=== PATIENT | male | born 1970 | race Caucasian/White ===

== ENCOUNTER 2022-12-16 02:07 | Emergency (ER) | payer BC, SELFPAY ==
[2022-12-16 02:23] VITALS: BP 116/76; PULSE 78; RESP 20; TEMP 36.6; O2SAT 98; BMI 31.8
--- NOTE | 2022-12-16 02:31 | ED.GENADULT ---
HPI - General Adult General Chief complaint: Lower Extremity Swelling Stated complaint: swollen from knee to feet Time Seen by Provider: 12/16/22 02:30 History of Present Illness HPI narrative: Pt aox4, ABCs intact. Patient c/o lower leg swelling since Saturday. Patient has been staying in his car since Saturday since they were evicted from their house. Patient has not been eating and only drinking water and his meds. Patient also requesting social work consult. 52-year-old man presenting to the emergency department with primary physical complaint of lower leg swelling. He says it hurts all the way up to his knees. Also has pain after prolonged sitting though allowing less time sitting indicating the sacral area. Has been losing weight. The been living in their car over the last 3 or 4 days since being evicted from their home. Other residents of this vehicle include his his disabled [id number] and their rotund carrier. He does also have a history of diabetes and has continued to take his medication but you with limited food is intake over the last couple of days. Has been staying hydrated with water. Noting though less urine out. They have been parked over at the truck stop using a bathroom facilities there. 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 Later notes that they anticipate a disability check from jacky who lives with them by Saturday. Should allow them a long-term hotel arrangement. Related Data Allergies Allergy/AdvReac Type Severity Reaction Status Date / Time coconut Allergy Verified 12/16/22 02:23 morphine Allergy Verified 12/16/22 02:23 Sulfa (Sulfonamide Allergy Verified 12/16/22 02:23 Antibiotics) Review of Systems Status of ROS: Reports: 6 or more systems reviewed and unremarkable except as noted in History and below Exam Narrative: Exam Narrative: Is pleasant. Tall man. Talkative. Cranial nerves 2-12 intact. Breathing easily. Lungs appear to be clear. Heart in a regular rate and rhythm. Abdomen is overweight soft nontender. Examination of the sacral air in question shows an elliptical of line of erythema in the upper gluteal cleft with surrounding mild erythema. Tender to palpation. I do not appreciate any asymmetrical swelling. No drainage. The lower extremities with mild edema of from dorsum of feet up to knees. Symmetrical. Not discretely tender to calf palpation or with Homans. Const: Vital Signs, click to edit/add: Vital Signs - 24 hr 12/16/22 02:23 Temperature 97.8 F Pulse Rate [Pulse Oximeter] 78 Respiratory Rate 20 Blood Pressure [Ri ght Upper Arm] 116/76 Pulse Oximetry 98 Oxygen Delivery Me thod Room Air Documenting provider has reviewed patient's vital signs: yes Course Vital Signs Vital signs: Initial Vital Signs Temperature 97.8 F 12/16/22 02:23 Temperature Source Temporal Artery Scan 12/16/22 02:23 Pulse Rate 78 12/16/22 02:23 Pulse Rhythm Regular 12/16/22 02:23 Pulse Strength 3+ Normal 12/16/22 02:23 Respiratory Rate 20 12/16/22 02:23 Blood Pressure 116/76 12/16/22 02:23 Blood Pressure Mean 89 12/16/22 02:23 Pulse Oximetry 98 12/16/22 02:23 Oxygen Delivery Method Room Air 12/16/22 02:23 Vital Signs Temperature 97.8 F 12/16/22 02:23 Pulse Rate 78 12/16/22 02:23 Respiratory Rate 20 12/16/22 02:23 Blood Pressure 116/76 12/16/22 02:23 Pulse Oximetry 98 12/16/22 02:23 Oxygen Delivery Method Room Air 12/16/22 02:23 Temperature 97.8 F 12/16/22 02:23 Pulse Rate 78 12/16/22 02:23 Respiratory Rate 20 12/16/22 02:23 Blood Pressure 116/76 12/16/22 02:23 Pulse Oximetry 98 12/16/22 02:23 Oxygen Delivery Method Room Air 12/16/22 02:23 Medical Decision Making MDM Narrative Medical decision making narrative: Initiating IV hydration. Checking labs in the setting of diabetes. I doubt that these legs represent DVT but purely a consequence of prolonged sitting. Erosion or sacral ulcer stage I looks to be beginning at the top of the gluteal cleft Ordered for Mepilex dressing and sacral donut. Temporary treatment for pain with acetaminophen 1 tablet of Percocet. Reports that last creatinine was 1.5 --today is 1.7. Is given food during time in the emergency department. He is able to sleep. I wrapped lower legs with Tony wraps finished with [place]an. We do have social Work available during the week but not during the we can. I can send in a referral see if any for other resources can be found. We have been searching as well. Food bank is not open over the weekend. Did give food on departure. Lab Data Lab results reviewed: Yes I reviewed the patient's lab results Labs: Lab Results 12/16/22 12/16/22 Range/Units 03:15 03:40 WBC 7.58 (4.50-11.00) K/uL RBC 4.44 (4.30-5.90) m/uL Hgb 13.3 L (13.5-17.5) gm/dL Hct 40.7 (37.0-53.0) % MCV 92 (80-100) fL MCH 30 (26-34) pg MCHC 33 (32-36) gm/dL RDW Coeff of Jerry 14.1 (11.5-15.5) % Plt Count 203 (140-440) K/uL Neut % (Auto) 54.4 (42.0-72.0) % Lymph % (Auto) 28.2 (20-44) % Towns % (Auto) 9.9 (0.0-11.0) % Eos % (Auto) 7.0 (0.0-7.0) % Baso % (Auto) 0.4 (0.0-3.0) % Neut # (Auto) 4.12 (1.7-7.0) K/uL Lymph # (Auto) 2.14 (0.90-2.90) K/uL Towns # (Auto) 0.80 (0.00-0.90) K/UL Eos # (Auto) 0.53 H (0.00-0.50) K/uL Baso # (Auto) 0.03 (0.00-0.30) K/uL Abs Immat Gran (auto) 0.01 (0.00-0.30) K/uL Imm/Tot Granulo (auto) 0.1 % D-Dimer Quant (PE/DVT) < 0.27 (0.00-0.50) ug/ml Sodium 138 (135-149) mmol/L Potassium 4.4 (3.6-5.1) mmol/L Chloride 109 (96-114) mmol/L Carbon Dioxide 13 L (20-32) mmol/L Anion Gap 16 H (7-15) mEq/L BUN 45 H (7-30) mg/dL Creatinine 1.7 H (0.5-1.5) mg/dL Estimated Creat Clear 65.51 Estimated GFR 49 ml/min Glucose 151 H (60-115) mg/dL Lactate 2.8 H (0.5-1.9) mmol/L Calcium 8.6 (8.4-10.6) mg/dL Total Bilirubin 0.7 (0.1-1.5) mg/dL Direct Bilirubin 0.3 (0.0-0.5) mg/dL AST 42 H (12-35) U/L ALT 38 (4-50) U/L Alkaline Phosphatase 110 (40-150) U/L C-Reactive Protein 0.5 (0.5-1.0) mg/dL NT-Pro-B Natriuret Pep < 20 pg/mL Total Protein 6.8 (6.0-8.3) g/dL Albumin 4.2 (3.3-5.0) g/dL TSH 1.830 (0.270-4.20) uIU/mL Discharge Plan Discharge Clinical Impression: Other social stressor, Peripheral edema, Pressure sore Patient Disposition: Home w/ Parent or Adult Condition: Stable Additional Instructions: I have placed referral for social work though I am not certain they will be able to assist you. I hope you can improve your situation on Saturday as you're anticipating. You can use these Tony wraps as needed just to keep fluid out of your legs. I do not think you have a blood clot otherwise. Hopefully also this seat/donut can take some of the pressure off of your sacral area. Follow Up/Referrals: Provider,Not a Local [Primary Care Provider] - Stand Alone Forms: [facility] Info Instructions
[2022-12-16 03:32] LABS: Albumin* 4.2 g/dL (3.3-5.0); Chloride* 109 mmol/L (96-114); Potassium* 4.4 mmol/L (3.6-5.1); Sodium* 138 mmol/L (135-149)
[2022-12-16 03:34] LABS: Creatinine* 1.7 mg/dL (0.5-1.5); Est. Creatinine Clearance* 65.51; Estimated Glomerular Filt Rate 49 ml/min
[2022-12-16 03:35] LABS: Alanine Aminotransferase* 38 U/L (4-50); Alkaline Phosphatase* 110 U/L (40-150); Anion Gap 16 mEq/L (7-15); Aspartate Amino Transferase* 42 U/L (12-35); Bilirubin Direct* 0.3 mg/dL (0.0-0.5); Bilirubin Total* 0.7 mg/dL (0.1-1.5); Blood Urea Nitrogen* 45 mg/dL (7-30); Carbon Dioxide* 13 mmol/L (20-32); Glucose* 151 mg/dL (60-115); Total Protein* 6.8 g/dL (6.0-8.3)
[2022-12-16 03:36] LABS: Calcium* 8.6 mg/dL (8.4-10.6)
[2022-12-16 03:38] LABS: C Reactive Protein* 0.5 mg/dL (0.5-1.0)
[2022-12-16 03:46] LABS: D Dimer Quantitative* < 0.27 ug/ml (0.00-0.50); NT Pro B Type NatriureticPept* < 20 pg/mL
[2022-12-16 03:49] LABS: Lactate* 2.8 mmol/L (0.5-1.9)
[2022-12-16] MEDS: 0.9 % SODIUM CHLORIDE 1000 ml 1,000 ML IV ×2 (03:49→05:38)
[2022-12-16 03:52] LABS: Basophils Absolute Auto 0.03 K/uL (0.00-0.30); Basophils Percent Auto 0.4 % (0.0-3.0); Eosinophils Absolute Auto 0.53 K/uL (0.00-0.50); Hematocrit 40.7 % (37.0-53.0); Hemoglobin* 13.3 gm/dL (13.5-17.5); Immature Granulocytes Abs Auto 0.01 K/uL (0.00-0.30); Immature Granulocytes Pct Auto 0.1 %; Lymphocytes Absolute Auto 2.14 K/uL (0.90-2.90); Lymphocytes Percent Auto 28.2 % (20-44); Mean Corpuscular HGB Conc 33 gm/dL (32-36); Mean Corpuscular Hemoglobin 30 pg (26-34); Mean Corpuscular Volume 92 fL (80-100); Monocytes Percent Auto 9.9 % (0.0-11.0); Neutrophils Absolute Auto 4.12 K/uL (1.7-7.0); Neutrophils Percent Auto 54.4 % (42.0-72.0); Platelet Count* 203 K/uL (140-440); RDW Coefficient of Variation % 14.1 % (11.5-15.5); Red Blood Count 4.44 m/uL (4.30-5.90); White Blood Count* 7.58 K/uL (4.50-11.00)
[2022-12-16 03:55] LABS: Slide Review Reflex No
[2022-12-16] MEDS: ACETAMINOPHEN 325 MG TABLET 650 MG PO (04:40)
[2022-12-16] MEDS: OxyCODONE/APAP 5-325 TABLET 1 TAB PO (04:41)
== END 2022-12-16 08:44 | disposition home or self-care (01) ==
PROVIDERS: Emergency Provider Family Medicine
DX: R60.9 Edema, unspecified (principal); L89.151 Pressure ulcer of sacral region, stage 1; Z73.3 Stress, not elsewhere classified; Z60.9 Problem related to social environment, unspecified
CPT/HCPCS: 36415; 80048; 80076; 81001; 83605; 83880; 84443; 85025; 85379; 86140; 99284; A9270; J7030

== ENCOUNTER 2022-12-27 18:43 | Emergency (ER) | payer BC, SELFPAY ==
[2022-12-27 19:09] VITALS: BP 124/85; PULSE 78; RESP 16; TEMP 36.7; O2SAT 98; BMI 31.8
--- NOTE | 2022-12-27 21:00 | ED.NURSE ---
compression socks to patient, pt dc out self ambulatory
--- NOTE | 2022-12-28 00:37 | ED.GENADULT ---
HPI - General Adult General Date Seen: 12/28/22 Chief complaint: Extremity Pain/Injury, Lower Stated complaint: Pain/swelling in legs Time Seen by Provider: 12/27/22 20:29 Source: patient Mode of arrival: ambulatory Limitations: no limitations History of Present Illness HPI narrative: Patient is a 52-year-old male who was seen here a few days ago for swelling and pain in his legs. He had an exhaustive workup including a D-dimer, metabolic panel, TSH, LFTs, BNP, all of which were normal. He was discharged with wraps for his legs and instructions to elevate, which has lb it been difficult for him to do as he is currently been living in his car after eviction from his apartment. He comes in today saying that he is still having problems with swelling in his legs. He is wondering about a diuretic. Of note, he is on 4 different blood pressure medicines. He says he is managed by somebody at [facility] for hypertension, and apparently is supposed to get a tilt-table test because he has had some autonomic dysfunction and they are trying to get him off of some of his blood pressure medicines. He apparently has not tolerated hydrochlorothiazide in the past by his report. Notably he is on amlodipine. He does not have any worsening of his swelling. There is no redness or warmth. Symptoms are the same. He does report that there is an apartment in works. He denies any food insecurity. Related Data Home Medications Medication Instructions Recorded Confirmed Nasonex 12/27/22 allopurinol 100 mg tablet 100 mg PO BID 12/27/22 12/27/22 amlodipine 10 mg tablet 10 mg PO DAILY 12/27/22 12/27/22 atorvastatin 20 mg tablet 20 mg PO DAILY 12/27/22 12/27/22 bupropion HCl 150 mg 24 hr tablet, 150 mg PO QAM 12/27/22 12/27/22 extended release clonidine HCl 0.1 mg tablet 0.1 mg PO BID 12/27/22 12/27/22 empagliflozin 10 mg tablet 10 mg PO DAILY 12/27/22 12/27/22 (Jardiance) empagliflozin 25 mg tablet 25 mg PO QAM 12/27/22 12/27/22 (Jardiance) gabapentin 300 mg capsule mg PO 12/27/22 insulin glargine 100 unit/mL 18 unit subcut QPM 12/27/22 12/27/22 subcutaneous solution (Lantus U-100 Insulin) labetalol 200 mg tablet 200 mg PO BID 12/27/22 12/27/22 lisinopril 40 mg tablet 40 mg PO DAILY 12/27/22 12/27/22 meloxicam 15 mg tablet 15 mg PO DAILY 12/27/22 12/27/22 metformin 500 mg tablet,extended 1,000 mg PO BID 12/27/22 12/27/22 release 24 hr pantoprazole 40 mg tablet,delayed 40 mg PO 12/27/22 release Allergies Allergy/AdvReac Type Severity Reaction Status Date / Time coconut Allergy Verified 12/27/22 19:12 morphine Allergy Verified 12/27/22 19:12 Sulfa (Sulfonamide Allergy Verified 12/27/22 19:12 Antibiotics) PFSH [facility] Social History Smoking Status: Former smoker How often do you have a drink containing alcohol: never AUDIT-C Alcohol total score: 0 Non-prescribed substance use: denies use Exam Narrative: Exam Narrative: Vital signs as noted above. In general, an alert, well-appearing patient. Very talkative. Head: Normocephalic, atraumatic. Eyes: Pupils are equal reactive. Extraocular movements are full. Conjunctivae are normal. ENT: Mucous membranes are moist. Throat is normal. Neck: Supple without lymphadenopathy. Heart: Regular rate and rhythm. No murmur or rub. Lungs: Clear bilaterally. No increased work of breathing, crackles or wheezes. Abdomen: Soft and nontender. No organomegaly. Extremities: Well perfused. Trace edema. No calf tenderness. Pulses intact. No erythema or warmth. Neurologic: Patient is alert and oriented to person and place. Speech is fluent. Face is symmetric. Moves all extremities equally. Affect: Normal. Skin: Warm and dry. Well perfused. Const: Vital Signs, click to edit/add: Vital Signs - 24 hr 12/27/22 19:09 Temperature 98.1 F Pulse Rate [Left P ulse Oximeter] 78 Respiratory Rate 16 Blood Pressure [Ri ght Upper Arm] 124/85 Pulse Oximetry 98 Oxygen Delivery Me thod Room Air Documenting provider has reviewed patient's vital signs: yes Course Course ED Course: Discussed that I do not think adding a diuretic is a good solution, it might provide short-term relief but is not going to be longstanding any is already on 4 antihypertensives as it is. Did discuss that sometimes amlodipine can be associated with peripheral edema and it might be worthwhile discussing this with his [place] doctor. I do not feel comfortable adjusting his medications given that it sounds like he has been difficult to control. I do not think he needs additional workup, everything was covered the last time he was here. I reviewed with him that when possible I think elevation is helpful, and I do think compression is probably his best bet. I gave him compression socks today. Encouraged him to follow up with his doctor at [place]. Vital Signs Vital signs: Initial Vital Signs Temperature 98.1 F 12/27/22 19:09 Temperature Source Oral 12/27/22 19:09 Pulse Rate 78 12/27/22 19:09 Respiratory Rate 16 12/27/22 19:09 Blood Pressure 124/85 12/27/22 19:09 Blood Pressure Mean 98 12/27/22 19:09 Blood Pressure Position Sitting 12/27/22 19:09 Pulse Oximetry 98 12/27/22 19:09 Oxygen Delivery Method Room Air 12/27/22 19:09 Vital Signs Temperature 98.1 F 12/27/22 19:09 Pulse Rate 78 12/27/22 19:09 Respiratory Rate 16 12/27/22 19:09 Blood Pressure 124/85 12/27/22 19:09 Pulse Oximetry 98 12/27/22 19:09 Oxygen Delivery Method Room Air 12/27/22 19:09 Temperature 98.1 F 12/27/22 19:09 Pulse Rate 78 12/27/22 19:09 Respiratory Rate 16 12/27/22 19:09 Blood Pressure 124/85 12/27/22 19:09 Pulse Oximetry 98 12/27/22 19:09 Oxygen Delivery Method Room Air 12/27/22 19:09 Discharge Plan Discharge Clinical Impression: Peripheral edema Patient Disposition: Home, Self-Care Condition: Stable Instructions: Leg Edema (ED) Additional Instructions: Compression socks as discussed. Elevate as able. Talk with your [place] doctor about the amlodipine as this may be contributing to your leg swelling. Watch dietary salt. Prescriptions: No Action clonidine HCl 0.1 mg tablet 0.1 mg PO BID atorvastatin 20 mg tablet 20 mg PO DAILY labetalol 200 mg tablet 200 mg PO BID insulin glargine [Lantus U-100 Insulin] 100 unit/mL solution 18 unit subcut QPM meloxicam 15 mg tablet 15 mg PO DAILY allopurinol 100 mg tablet 100 mg PO BID amlodipine 10 mg tablet 10 mg PO DAILY pantoprazole 40 mg tablet,delayed release (DR/EC) 40 mg PO gabapentin 300 mg capsule PO lisinopril 40 mg tablet 40 mg PO DAILY metformin 500 mg tablet extended release 24 hr 1,000 mg PO BID bupropion HCl 150 mg tablet extended release 24 hr 150 mg PO QAM Jardiance 25 mg tablet 25 mg PO QAM Jardiance 10 mg tablet 10 mg PO DAILY Nasonex Follow Up/Referrals: Provider,Not a Local [Primary Care Provider] - Stand Alone Forms: [facility] Info Instructions
== END 2022-12-27 21:04 | disposition home or self-care (01) ==
LOC: ED 21:01
PROVIDERS: Emergency Provider Emergency Medicine
DX: R60.0 Localized edema (principal)
CPT/HCPCS: 99283

== ENCOUNTER 2023-01-03 01:07 | Emergency (ER) | payer BC, SELFPAY ==
[2023-01-03 01:14] VITALS: BP 155/108; PULSE 82; RESP 16; TEMP 36.7; O2SAT 98; BMI 32.0
--- NOTE | 2023-01-03 01:19 | ED.GENADULT ---
HPI - General Adult General Chief complaint: Lower Extremity Swelling Stated complaint: swelling in legs, pain Time Seen by Provider: 01/03/23 01:14 History of Present Illness HPI narrative: CC: Bilateral Lower Extremity Edema pt. with increased swelling in legs. was seen here 12/28 and was told to wear compression stockings and elevate legs. has been doing that with no relief. denies shortness of breath, trouble breathing, fevers, n/v, diarrhea. 52-year-old man returning to the emergency department with complaint of increased lower extremity edema. Has unfortunately had to reside with his and [id number] a in a car for some time. 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 Last seen had a creatinine of 1.7. Was wanting some diuretic but due to this was discouraged from that. Incidentally does take amlodipine. Underlying history of diabetes as well. He is complaining of burning pain through majority of his legs which he would associate with the swelling. He has been finding ways to elevate them while in the car. He was given compression stockings which he wore until 1 pair wore out. Sound like he lost another and the Tony wraps that I applied at last visit have been misplaced. Later in visit it becomes clear that he has of an appointment with primary care provider later today. Has been focusing on hydrating. Tries to take walks whenever is able. The swelling he thinks is extending into his hands as well. He reports as a 3:00 p.m. later today they will have a house or room to stay in. Related Data Home Medications Medication Instructions Recorded Confirmed allopurinol 100 mg tablet 100 mg PO BID 12/27/22 01/03/23 amlodipine 10 mg tablet 10 mg PO DAILY 12/27/22 01/03/23 atorvastatin 20 mg tablet 20 mg PO DAILY 12/27/22 01/03/23 bupropion HCl 150 mg 24 hr tablet, 150 mg PO QAM 12/27/22 01/03/23 extended release clonidine HCl 0.1 mg tablet 0.1 mg PO BID 12/27/22 01/03/23 empagliflozin 25 mg tablet 25 mg PO QAM 12/27/22 01/03/23 (Jardiance) gabapentin 300 mg capsule 300 mg PO TID 12/27/22 01/03/23 insulin glargine 100 unit/mL 18 unit subcut QPM 12/27/22 01/03/23 subcutaneous solution (Lantus U-100 Insulin) labetalol 200 mg tablet 200 mg PO BID 12/27/22 01/03/23 lisinopril 40 mg tablet 40 mg PO DAILY 12/27/22 01/03/23 meloxicam 15 mg tablet 15 mg PO DAILY 12/27/22 01/03/23 metformin 500 mg tablet,extended 1,000 mg PO BID 12/27/22 01/03/23 release 24 hr pantoprazole 40 mg tablet,delayed 40 mg PO Q12H 12/27/22 01/03/23 release Previous Rx's Medication Instructions Recorded furosemide 40 mg tablet (Lasix) 40 mg PO BID #14 tabs 01/03/23 Allergies Allergy/AdvReac Type Severity Reaction Status Date / Time coconut Allergy Mild Hives Verified 01/03/23 01:22 morphine Allergy Mild Hives Verified 01/03/23 01:22 Sulfa (Sulfonamide Allergy Mild Hives Verified 01/03/23 01:22 Antibiotics) Review of Systems Status of ROS: Reports: 6 or more systems reviewed and unremarkable except as noted in History and below [facility] Social History Smoking Status: Former smoker How often do you have a drink containing alcohol: never AUDIT-C Alcohol total score: 0 Non-prescribed substance use: denies use Exam Narrative: Exam Narrative: Pleasant. Talkative a little restless. Breathing easily. Moving all extremities without difficulty. There is 2+ soft pitting edema over the dorsum of both feet. A continues to extend up to his knees but increasingly less. Sore to palpation particularly over his feet. I do not see erythematous changes consistent with a cellulitis anywhere. Const: Vital Signs, click to edit/add: Vital Signs - 24 hr 01/03/23 01:14 Temperature 98.0 F Pulse Rate [Right Pulse Oximeter] 82 Respiratory Rate 16 Blood Pressure [Ri ght Upper Arm] 155/108 H Pulse Oximetry 98 Oxygen Delivery Me thod Room Air Course Vital Signs Vital signs: Initial Vital Signs Temperature 98.0 F 01/03/23 01:14 Temperature Source Temporal Artery Scan 01/03/23 01:14 Pulse Rate 82 01/03/23 01:14 Respiratory Rate 16 01/03/23 01:14 Blood Pressure 155/108 H 01/03/23 01:14 Blood Pressure Mean 123 H 01/03/23 01:14 Blood Pressure Position Sitting 01/03/23 01:14 Pulse Oximetry 98 01/03/23 01:14 Oxygen Delivery Method Room Air 01/03/23 01:14 Vital Signs Temperature 98.0 F 01/03/23 01:14 Pulse Rate 82 01/03/23 01:14 Respiratory Rate 16 01/03/23 01:14 Blood Pressure 155/108 H 01/03/23 01:14 Pulse Oximetry 98 01/03/23 01:14 Oxygen Delivery Method Room Air 01/03/23 01:14 Temperature 98.0 F 01/03/23 01:14 Pulse Rate 82 01/03/23 01:14 Respiratory Rate 16 01/03/23 01:14 Blood Pressure 155/108 H 01/03/23 01:14 Pulse Oximetry 98 01/03/23 01:14 Oxygen Delivery Method Room Air 01/03/23 01:14 Medical Decision Making MDM Narrative Medical decision making narrative: I think would be reasonable to recheck chemistries. If we can verify creatinine might be able to offer different treatments. I think it is quite challenging to be able to get his legs up to truly. 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 He is really desperate to get the fluid out of his legs Creatinine will allow some leeway for diuretic. I would not do this though without compression. I apply Tony wraps to his lower extremities. Is given Lasix for outpatient treatment. Close follow-up in primary care. Sounds like will actually have a real home to live in here shortly in the should help resolve his edema as well. Barring improvement, might need to be seen at lymphedema clinic See patient discharge plan Lab Data Lab results reviewed: Yes I reviewed the patient's lab results Labs: Lab Results 01/03/23 Range/Units 01:40 Sodium 140 (135-149) mmol/L Potassium 3.9 (3.6-5.1) mmol/L Chloride 108 (96-114) mmol/L Carbon Dioxide 20 (20-32) mmol/L Anion Gap 12 (7-15) mEq/L BUN 13 (7-30) mg/dL Creatinine 1.3 (0.5-1.5) mg/dL Estimated Creat Clear 85.67 Estimated GFR 67 ml/min Glucose 166 H (60-115) mg/dL Calcium 9.0 (8.4-10.6) mg/dL Discharge Plan Discharge Clinical Impression: Leg pain, Peripheral edema Patient Disposition: Home, Self-Care Condition: Stable Additional Instructions: As much as you can get your legs up at the level of your heart and wear some form of lower extremity compression. Can take the Lasix in combination with compression and leg elevation for 4 days as prescribed and then reassess. Please follow-up with your primary care provider this afternoon as discussed. Really hope this housing works out for you later today. I think this in combination with a few days of a diuretic, being in a more stable and comfortable place where you can get your legs up; I think this will be helpful. [place] from [facility] if really needed Prescriptions: New furosemide [Lasix] 40 mg tablet 40 mg PO BID Qty: 14 0RF No Action clonidine HCl 0.1 mg tablet 0.1 mg PO BID atorvastatin 20 mg tablet 20 mg PO DAILY labetalol 200 mg tablet 200 mg PO BID insulin glargine [Lantus U-100 Insulin] 100 unit/mL solution 18 unit subcut QPM meloxicam 15 mg tablet 15 mg PO DAILY allopurinol 100 mg tablet 100 mg PO BID amlodipine 10 mg tablet 10 mg PO DAILY pantoprazole 40 mg tablet,delayed release (DR/EC) 40 mg PO Q12H gabapentin 300 mg capsule 300 mg PO TID Rx Instructions: TAKE 1 CAPSULE BY MOUTH IN THE MORNING, 2 CAPSULES IN THE AFTERNOON, AND 3 CAPSULES AT BEDTIME lisinopril 40 mg tablet 40 mg PO DAILY metformin 500 mg tablet extended release 24 hr 1,000 mg PO BID bupropion HCl 150 mg tablet extended release 24 hr 150 mg PO QAM Jardiance 25 mg tablet 25 mg PO QAM Follow Up/Referrals: Provider,Not a Local [Primary Care Provider] - Stand Alone Forms: [employer] Info Instructions
[2023-01-03 01:30] VITALS: O2SAT 98
[2023-01-03 01:58] LABS: Chloride* 108 mmol/L (96-114)
[2023-01-03 01:59] LABS: Potassium* 3.9 mmol/L (3.6-5.1); Sodium* 140 mmol/L (135-149)
[2023-01-03 02:01] LABS: Creatinine* 1.3 mg/dL (0.5-1.5); Est. Creatinine Clearance* 85.67; Estimated Glomerular Filt Rate 67 ml/min
[2023-01-03 02:02] LABS: Anion Gap 12 mEq/L (7-15); Blood Urea Nitrogen* 13 mg/dL (7-30); Carbon Dioxide* 20 mmol/L (20-32); Glucose* 166 mg/dL (60-115)
[2023-01-03 03:35] VITALS: BP 132/68; PULSE 79; RESP 16; TEMP 36.7; O2SAT 98
[2023-01-03] MEDS: FUROSEMIDE 40 MG TABLET PO (03:38)
[2023-01-03 03:40] VITALS: BP 132/68; PULSE 79; RESP 16; TEMP 36.7
== END 2023-01-03 03:40 | disposition home or self-care (01) ==
PROVIDERS: Emergency Provider Family Medicine
DX: M79.605 Pain in left leg (principal); M79.604 Pain in right leg; R60.9 Edema, unspecified
CPT/HCPCS: 36415; 80048; 94761; 99283; 99284; A9270

== ENCOUNTER 2023-01-12 16:33 | Emergency (ER) | payer BC, SELFPAY ==
[2023-01-12 17:01] VITALS: BP 166/97; PULSE 98; RESP 18; TEMP 37; O2SAT 98
--- NOTE | 2023-01-12 17:12 | ED_ITS ---
HPI - General Adult General Time Seen by Provider: 17:12 Date Seen: 01/12/23 Chief complaint: Sore Throat Stated complaint: Covid+, congested Time Seen by Provider: 01/12/23 17:11 Source: patient and RN notes reviewed Mode of arrival: ambulatory Limitations: no limitations History of Present Illness HPI narrative: Patient is a 52-year-old male with underlying diabetes coming in with COVID exposure. His has tested positive for COVID today. He has had some slight nasal congestion and some sinus symptoms for about a week but this is not anything necessarily new for him. He does not feel like he has any new symptoms with sore throat, cough. He has not had any fevers or body aches. No GI symptoms. He has had COVID before and taken Paxlovid before. He does report he has restricted insurance in can only go to 1 pharmacy. He would like to be tested for COVID today. Related Data Home Medications Medication Instructions Recorded Confirmed allopurinol 100 mg tablet 100 mg PO BID 12/27/22 01/03/23 amlodipine 10 mg tablet 10 mg PO DAILY 12/27/22 01/03/23 atorvastatin 20 mg tablet 20 mg PO DAILY 12/27/22 01/03/23 bupropion HCl 150 mg 24 hr tablet, 150 mg PO QAM 12/27/22 01/03/23 extended release clonidine HCl 0.1 mg tablet 0.1 mg PO BID 12/27/22 01/03/23 empagliflozin 25 mg tablet 25 mg PO QAM 12/27/22 01/03/23 (Jardiance) gabapentin 300 mg capsule 300 mg PO TID 12/27/22 01/03/23 insulin glargine 100 unit/mL 18 unit subcut QPM 12/27/22 01/03/23 subcutaneous solution (Lantus U-100 Insulin) labetalol 200 mg tablet 200 mg PO BID 12/27/22 01/03/23 lisinopril 40 mg tablet 40 mg PO DAILY 12/27/22 01/03/23 meloxicam 15 mg tablet 15 mg PO DAILY 12/27/22 01/03/23 metformin 500 mg tablet,extended 1,000 mg PO BID 12/27/22 01/03/23 release 24 hr pantoprazole 40 mg tablet,delayed 40 mg PO Q12H 12/27/22 01/03/23 release Previous Rx's Medication Instructions Recorded furosemide 40 mg tablet (Lasix) 40 mg PO BID #14 tabs 01/03/23 Allergies Allergy/AdvReac Type Severity Reaction Status Date / Time coconut Allergy Mild Hives Verified 01/03/23 01:22 morphine Allergy Mild Hives Verified 01/03/23 01:22 Sulfa (Sulfonamide Allergy Mild Hives Verified 01/03/23 01:22 Antibiotics) Review of Systems Status of ROS: Reports: 6 or more systems reviewed and unremarkable except as noted in History and below PFSH [facility] Social History Smoking Status: Former smoker Second hand tobacco smoke exposure: No How often do you have a drink containing alcohol: never How often do you have six or more drinks on one occasion: Never AUDIT-C Alcohol total score: 0 Non-prescribed substance use: denies use Exam Const: Vital Signs, click to edit/add: Vital Signs - 24 hr 01/12/23 17:01 Temperature 98.6 F Pulse Rate [Right Pulse Oximeter] 98 Respiratory Rate 18 Blood Pressure [Ri ght Upper Arm] 166/97 H Pulse Oximetry 98 Oxygen Delivery Me thod Room Air Patient is alert, interactive, no apparent distress. Sclera clear, face atraumatic, oropharynx normal. Able speak in complete sentences. Neck is supple, no cervical adenopathy. Lungs are clear with good air entry, no wheezing or crackles, no tachypnea. CV regular rate and rhythm, no significant murmur, normal S1 and S2. Documenting provider has reviewed patient's vital signs: yes Course Course ED Course: Review of his chart shows estimated creatinine clearance of 86 with creatinine of 1.3 on January 03 here in our system. COVID test has been collected. Reviewed with patient if he is COVID positive it is difficult to say when he may have come down with symptoms. We reviewed that he indeed might not be having COVID at this point. We will wait and see what the test results shows. Vital Signs Vital signs: Initial Vital Signs Temperature 98.6 F 01/12/23 17:01 Temperature Source Temporal Artery Scan 01/12/23 17:01 Pulse Rate 98 01/12/23 17:01 Respiratory Rate 18 01/12/23 17:01 Blood Pressure 166/97 H 01/12/23 17:01 Blood Pressure Mean 120 H 01/12/23 17:01 Blood Pressure Position Sitting 01/12/23 17:01 Pulse Oximetry 98 01/12/23 17:01 Oxygen Delivery Method Room Air 01/12/23 17:01 Vital Signs Temperature 98.6 F 01/12/23 17:01 Pulse Rate 98 01/12/23 17:01 Respiratory Rate 18 01/12/23 17:01 Blood Pressure 166/97 H 01/12/23 17:01 Pulse Oximetry 98 01/12/23 17:01 Oxygen Delivery Method Room Air 01/12/23 17:01 Temperature 98.6 F 01/12/23 17:01 Pulse Rate 98 01/12/23 17:01 Respiratory Rate 18 01/12/23 17:01 Blood Pressure 166/97 H 01/12/23 17:01 Pulse Oximetry 98 01/12/23 17:01 Oxygen Delivery Method Room Air 01/12/23 17:01 Medical Decision Making Lab Data Lab results reviewed: Yes I reviewed the patient's lab results Labs: Lab Results 01/12/23 Range/Units 17:10 SARS-CoV-2 (PCR) Negative SARS-CoV-2 (Negative) Influenza Type A (PCR) Negative PCR FLU A (Negative) Influenza Type B (PCR) Negative PCR FLU B (Negative) RSV (PCR) Negative PCR RSV (Negative) Discharge Plan Discharge Clinical Impression: Close exposure to COVID-19 virus Patient Disposition: Home, Self-Care Condition: Stable Instructions: COVID-19: Slow the Coronavirus Spread (ED) Additional Instructions: Your test is negative for COVID at this time. Recommend wearing face mask and precautions while around your , isolate from each other if you can. If you start to turn symptomatic, do recommend following up in clinic or urgent care for testing. Activity Level: Activity as Tolerated Prescriptions: No Action clonidine HCl 0.1 mg tablet 0.1 mg PO BID atorvastatin 20 mg tablet 20 mg PO DAILY labetalol 200 mg tablet 200 mg PO BID insulin glargine [Lantus U-100 Insulin] 100 unit/mL solution 18 unit subcut QPM meloxicam 15 mg tablet 15 mg PO DAILY allopurinol 100 mg tablet 100 mg PO BID amlodipine 10 mg tablet 10 mg PO DAILY pantoprazole 40 mg tablet,delayed release (DR/EC) 40 mg PO Q12H gabapentin 300 mg capsule 300 mg PO TID Rx Instructions: TAKE 1 CAPSULE BY MOUTH IN THE MORNING, 2 CAPSULES IN THE AFTERNOON, AND 3 CAPSULES AT BEDTIME lisinopril 40 mg tablet 40 mg PO DAILY metformin 500 mg tablet extended release 24 hr 1,000 mg PO BID bupropion HCl 150 mg tablet extended release 24 hr 150 mg PO QAM Jardiance 25 mg tablet 25 mg PO QAM furosemide [Lasix] 40 mg tablet 40 mg PO BID Qty: 14 0RF Follow Up/Referrals: Provider,Not a Local [Primary Care Provider] - Stand Alone Forms: [facility]
[2023-01-12 17:56] LABS: PCR FLU A Negative PCR FLU A (Negative); PCR FLU B Negative PCR FLU B (Negative); PCR RSV Negative PCR RSV (Negative)
[2023-01-12 17:59] LABS: SARS PCR* Negative SARS-CoV-2 (Negative)
[2023-01-12 18:18] VITALS: BP 166/97; PULSE 98; RESP 18; TEMP 37
== END 2023-01-12 18:19 | disposition home or self-care (01) ==
PROVIDERS: Emergency Provider Family Medicine
DX: U07.1 COVID-19 (principal)
CPT/HCPCS: 87631; 99282; 99283

== ENCOUNTER 2023-01-14 19:26 | Emergency (ER) | payer BC, SELFPAY ==
[2023-01-14 19:57] VITALS: BP 142/104; PULSE 97; RESP 18; TEMP 36.7; O2SAT 99; BMI 33.4
[2023-01-14 20:23] LABS: Chloride* 105 mmol/L (96-114); Sodium* 139 mmol/L (135-149)
[2023-01-14 20:24] LABS: Potassium* 4.2 mmol/L (3.6-5.1)
[2023-01-14 20:26] LABS: Anion Gap 15 mEq/L (7-15); Carbon Dioxide* 19 mmol/L (20-32); Creatinine* 1.2 mg/dL (0.5-1.5); Est. Creatinine Clearance* 92.81; Estimated Glomerular Filt Rate 74 ml/min
[2023-01-14 20:27] LABS: Blood Urea Nitrogen* 22 mg/dL (7-30); Calcium* 9.9 mg/dL (8.4-10.6); Glucose* 181 mg/dL (60-115)
[2023-01-14 21:04] VITALS: BP 136/89; PULSE 81; RESP 18; O2SAT 98
--- NOTE | 2023-01-14 21:45 | ED.GENADULT ---
HPI - General Adult General Date Seen: 01/14/23 Chief complaint: Cough Stated complaint: Covid+ needs dr medley and diabetic-wants meds Time Seen by Provider: 01/14/23 20:01 Source: patient Mode of arrival: ambulatory Limitations: no limitations History of Present Illness HPI narrative: Patient is a 52-year-old gentleman, who presents here with a positive COVID test, he became sick today, he has been exposed to COVID at home both his brother and have COVID. He had COVID in the past is fully immunized. He does have some diabetes, and some other risk factors had been on Paxlovid in the past and did well, is asking for this again. Does have history of mild renal insufficiency needs to have his GFR checked. Otherwise feels fine, no shortness of breath chest pain leg swelling, no nausea vomiting just a little bit of a tickle in his throat, and a little bit of nasal discharge. Related Data Home Medications Medication Instructions Recorded Confirmed allopurinol 100 mg tablet 100 mg PO BID 12/27/22 01/14/23 amlodipine 10 mg tablet 10 mg PO DAILY 12/27/22 01/14/23 atorvastatin 20 mg tablet 20 mg PO DAILY 12/27/22 01/14/23 bupropion HCl 150 mg 24 hr tablet, 150 mg PO QAM 12/27/22 01/14/23 extended release clonidine HCl 0.1 mg tablet 0.1 mg PO BID 12/27/22 01/14/23 empagliflozin 25 mg tablet 25 mg PO QAM 12/27/22 01/14/23 (Jardiance) gabapentin 300 mg capsule 300 mg PO TID 12/27/22 01/14/23 insulin glargine 100 unit/mL 18 unit subcut QPM 12/27/22 01/14/23 subcutaneous solution (Lantus U-100 Insulin) labetalol 200 mg tablet 200 mg PO BID 12/27/22 01/14/23 lisinopril 40 mg tablet 40 mg PO DAILY 12/27/22 01/14/23 meloxicam 15 mg tablet 15 mg PO DAILY 12/27/22 01/14/23 metformin 500 mg tablet,extended 1,000 mg PO BID 12/27/22 01/14/23 release 24 hr pantoprazole 40 mg tablet,delayed 40 mg PO Q12H 12/27/22 01/14/23 release Previous Rx's Medication Instructions Recorded furosemide 40 mg tablet (Lasix) 40 mg PO BID #14 tabs 01/03/23 nirmatrelvir 300 mg (150 mg See Rx Instructions PO .COMPLEX 01/14/23 x2)-ritonavir 100 mg tablet,dose #30 ea pack (Paxlovid) Allergies Allergy/AdvReac Type Severity Reaction Status Date / Time coconut Allergy Mild Hives Verified 01/03/23 01:22 morphine Allergy Mild Hives Verified 01/03/23 01:22 Sulfa (Sulfonamide Allergy Mild Hives Verified 01/03/23 01:22 Antibiotics) Review of Systems Status of ROS: Reports: 10 or more systems reviewed and unremarkable except as noted in History and below PFSH [facility] Social History Smoking Status: Former smoker Second hand tobacco smoke exposure: No How often do you have a drink containing alcohol: never How often do you have six or more drinks on one occasion: Never AUDIT-C Alcohol total score: 0 Non-prescribed substance use: denies use Exam Narrative: Exam Narrative: On examination he is in no apparent distress he is seen in room 4, his vital signs are all stable. Pupils equal round reactive to light his TMs normal oropharynx is normal his chest is clear bilaterally with no wheezing crackles noted heart sounds no clicks murmurs or gallops his abdomen is soft and obese there is no guarding no organomegaly noted he moves all extremities independently well no Jayda sign, no swelling of his lower extremities, no rashes. Const: Vital Signs, click to edit/add: Vital Signs - 24 hr 01/14/23 19:57 01/14/23 21:04 Temperature 98.0 F Pulse Rate [Left P ulse Oximeter] 97 81 Respiratory Rate 18 18 Blood Pressure [Ri ght Upper Arm] 142/104 H 136/89 Pulse Oximetry 99 98 Oxygen Delivery Me thod Room Air Room Air Documenting provider has reviewed patient's vital signs: yes Course Vital Signs Vital signs: Initial Vital Signs Temperature 98.0 F 01/14/23 19:57 Temperature Source Temporal Artery Scan 01/14/23 19:57 Pulse Rate 97 01/14/23 19:57 Respiratory Rate 18 01/14/23 19:57 Blood Pressure 142/104 H 01/14/23 19:57 Blood Pressure Mean 116 H 01/14/23 19:57 Blood Pressure Position Sitting 01/14/23 19:57 Pulse Oximetry 99 01/14/23 19:57 Oxygen Delivery Method Room Air 01/14/23 19:57 Vital Signs Temperature 98.0 F 01/14/23 19:57 Pulse Rate 97 01/14/23 19:57 Respiratory Rate 18 01/14/23 19:57 Blood Pressure 142/104 H 01/14/23 19:57 Pulse Oximetry 99 01/14/23 19:57 Oxygen Delivery Method Room Air 01/14/23 19:57 Temperature 98.0 F 01/14/23 19:57 Pulse Rate 81 01/14/23 21:04 Respiratory Rate 18 01/14/23 21:04 Blood Pressure 136/89 01/14/23 21:04 Pulse Oximetry 98 01/14/23 21:04 Oxygen Delivery Method Room Air 01/14/23 21:04 Medical Decision Making MDM Narrative Medical decision making narrative: I do think he requires medication for COVID, as he has had increased risk for complications. He has also been seen within the window. Where it would work. I discussed with him on putting his medications in the liver pool interaction return checker. That he will need to hold both his amlodipine and his atorvastatin. He can restart these 3 days after he has done his course of Paxlovid. We talked about the worsening signs and symptoms but he should re-presented here he was comfortable with this. His GFR is 70, and no dosage modification is needed. Lab Data Lab results reviewed: Yes I reviewed the patient's lab results Labs: Lab Results 01/14/23 Range/Units 20:02 Sodium 139 (135-149) mmol/L Potassium 4.2 (3.6-5.1) mmol/L Chloride 105 (96-114) mmol/L Carbon Dioxide 19 L (20-32) mmol/L Anion Gap 15 (7-15) mEq/L BUN 22 (7-30) mg/dL Creatinine 1.2 (0.5-1.5) mg/dL Estimated Creat Clear 92.81 Estimated GFR 74 ml/min Glucose 181 H (60-115) mg/dL Calcium 9.9 (8.4-10.6) mg/dL Discharge Plan Discharge Clinical Impression: COVID-19 Patient Disposition: Home, Self-Care Condition: Stable Instructions: COVID-19 (Coronavirus Disease 2019) (ED), COVID-19 and Chronic Health Conditions (ED), COVID-19: Slow the Coronavirus Spread (ED), How to Recover from COVID-19 at Home (ED), Social Distancing Guidelines for COVID-19 (ED) Additional Instructions: We will send you home, I will give you prescription for the antiviral, that she should take. You should stay off of your atorvastatin, and your amlodipine and monitor your blood pressure. When she finished the medication and 3 days have gone by you may restart both of these medications. Increasing chest pain shortness of breath nausea vomiting or other concern he should come back and get re-evaluated. Please follow the guidelines for not spreading COVID. Activity Level: Light activity Discharge Diet: Regular Prescriptions: New Paxlovid 300 mg (150 mg x 2)-100 mg tablets,dose pack See Rx Instructions .ROUTE .COMPLEX Qty: 30 0RF Rx Instructions: take TWO 150 mg tablets of nirmatrelvir with ONE 100 mg tablet of ritonavir twice daily for 5 days, patient should stop his atorvastatin and amlodipine, he may restart these both 3 days after he finishes the prescription. No Action clonidine HCl 0.1 mg tablet 0.1 mg PO BID atorvastatin 20 mg tablet 20 mg PO DAILY labetalol 200 mg tablet 200 mg PO BID insulin glargine [Lantus U-100 Insulin] 100 unit/mL solution 18 unit subcut QPM meloxicam 15 mg tablet 15 mg PO DAILY allopurinol 100 mg tablet 100 mg PO BID amlodipine 10 mg tablet 10 mg PO DAILY pantoprazole 40 mg tablet,delayed release (DR/EC) 40 mg PO Q12H gabapentin 300 mg capsule 300 mg PO TID Rx Instructions: TAKE 1 CAPSULE BY MOUTH IN THE MORNING, 2 CAPSULES IN THE AFTERNOON, AND 3 CAPSULES AT BEDTIME lisinopril 40 mg tablet 40 mg PO DAILY metformin 500 mg tablet extended release 24 hr 1,000 mg PO BID bupropion HCl 150 mg tablet extended release 24 hr 150 mg PO QAM Jardiance 25 mg tablet 25 mg PO QAM furosemide [Lasix] 40 mg tablet 40 mg PO BID Qty: 14 0RF Follow Up/Referrals: Provider,Not a Local [Primary Care Provider] - Stand Alone Forms: [employer] Info Instructions
== END 2023-01-14 21:05 | disposition home or self-care (01) ==
PROVIDERS: Emergency Provider Family Medicine
DX: U07.1 COVID-19 (principal)
CPT/HCPCS: 36415; 80048; 99283

== ENCOUNTER 2023-07-05 09:56 | Emergency (ER) | payer BC, SELFPAY ==
[2023-07-05 10:13] VITALS: BP 134/92; PULSE 81; RESP 18; TEMP 36.4; O2SAT 96; BMI 33.2
--- NOTE | 2023-07-05 10:19 | ED_ITS ---
HPI - General Adult General Time Seen by Provider: 10:19 Date Seen: 07/05/23 Chief complaint: Flank Pain Stated complaint: kidney stone Time Seen by Provider: 07/05/23 10:19 Source: patient and RN notes reviewed Mode of arrival: ambulatory Limitations: no limitations History of Present Illness HPI narrative: This 52-year-old male is presenting with right flank pain that radiates towards his right groin, consistent with prior kidney stone disease. He has had kidney stones in the past. He states on the left side the did have to do lithotripsy and stent placement once. He has vomited a few times with this. He has had no prior fevers or chills or abdominal pain. The pain hit suddenly at work. No diarrhea, no hematuria or dysuria preceding this. He states the usual cocktail is Zofran, Toradol and dilaudid but the dilaudid needs to be less than 1 mg. He states in [place] once they gave him too much dilaudid and he had problems with breathing. I did review with him that we would start with the Zofran and Toradol, proceed from there. Related Data Home Medications Medication Instructions Recorded Confirmed allopurinol 100 mg tablet 100 mg PO BID 12/27/22 01/14/23 amlodipine 10 mg tablet 10 mg PO DAILY 12/27/22 01/14/23 atorvastatin 20 mg tablet 20 mg PO DAILY 12/27/22 01/14/23 bupropion HCl 150 mg 24 hr tablet, 150 mg PO QAM 12/27/22 01/14/23 extended release clonidine HCl 0.1 mg tablet 0.1 mg PO BID 12/27/22 01/14/23 empagliflozin 25 mg tablet 25 mg PO QAM 12/27/22 01/14/23 (Jardiance) gabapentin 300 mg capsule 300 mg PO TID 12/27/22 01/14/23 insulin glargine 100 unit/mL 18 unit subcut QPM 12/27/22 01/14/23 subcutaneous solution (Lantus U-100 Insulin) labetalol 200 mg tablet 200 mg PO BID 12/27/22 01/14/23 lisinopril 40 mg tablet 40 mg PO DAILY 12/27/22 01/14/23 meloxicam 15 mg tablet 15 mg PO DAILY 12/27/22 01/14/23 metformin 500 mg tablet,extended 1,000 mg PO BID 12/27/22 01/14/23 release 24 hr pantoprazole 40 mg tablet,delayed 40 mg PO Q12H 12/27/22 01/14/23 release Previous Rx's Medication Instructions Recorded furosemide 40 mg tablet (Lasix) 40 mg PO BID #14 tabs 01/03/23 nirmatrelvir 300 mg (150 mg See Rx Instructions PO .COMPLEX 01/14/23 x2)-ritonavir 100 mg tablet,dose #30 ea pack (Paxlovid) Allergies Allergy/AdvReac Type Severity Reaction Status Date / Time coconut Allergy Mild Hives Verified 01/03/23 01:22 morphine Allergy Mild Hives Verified 01/03/23 01:22 Sulfa (Sulfonamide Allergy Mild Hives Verified 01/03/23 01:22 Antibiotics) Review of Systems Status of ROS: Reports: 6 or more systems reviewed and unremarkable except as noted in History and below PFSH PFS Social History Smoking Status: Former smoker Second hand tobacco smoke exposure: No How often do you have a drink containing alcohol: never How often do you have six or more drinks on one occasion: Never AUDIT-C Alcohol total score: 0 Non-prescribed substance use: denies use Exam Const: Vital Signs, click to edit/add: Vital Signs - 24 hr 07/05/23 10:13 Temperature 97.5 F L Pulse Rate [Right Pulse Oximeter] 81 Respiratory Rate 18 Blood Pressure [Ri ght Upper Arm] 134/92 H Pulse Oximetry 96 Oxygen Delivery Me thod Room Air Patient is alert, interactive, does seem like he is in pain. He is certainly pleasant though. Sclera clear come conjugate gaze, symmetrical facial function, able speak in complete sentences. Lungs are clear, CV regular rate and rhythm, no murmur, normal S1-S2. Abdomen is soft, nontender, no organomegaly. Really does not have any CVA tenderness that I can reproduce. He has no lower extremity edema. Skin visualized without rash. Documenting provider has reviewed patient's vital signs: yes Course Course ED Course: Will initiate IV fluids, 15 mg IV Toradol 4 mg IV Zofran. He will be on pulse oximetry. Will proceed with some IV dilaudid if he does not have adequate pain control. Will get baseline labs as well as urinalysis. He will have CT abdomen pelvis noncontrast so that we may identify a size of the stone as this likely represents renal colic. Reevaluation(s) Time of Reevaluation #1: 12:14 Reevaluation #1: Provided patient with a copy of his CT report. He is aware that he has underlyi ng fatty liver, states that is been there for some time. He is known to have a right renal lesion, wondered if it had grown. I reviewed with him that we did not do our CT with IV contrast, nothing was differentiated in the kidney. Plan will be to discharge to home. He states when he provided the urinalysis he felt like he heard something hit the bottom of the toilet. We did review it is alway s possible he could have passed a small stone already. I would be surprised if he would actually here something of that nature hitting the toilet. Nonetheless, his CT and labs are not showing any acute pathology, he feels better. Vital Signs Vital signs: Initial Vital Signs Temperature 97.5 F L 07/05/23 10:13 Temperature Source Temporal Artery Scan 07/05/23 10:13 Pulse Rate 81 07/05/23 10:13 Respiratory Rate 18 07/05/23 10:13 Blood Pressure 134/92 H 07/05/23 10:13 Blood Pressure Mean 106 H 07/05/23 10:13 Blood Pressure Position Sitting 07/05/23 10:13 Pulse Oximetry 96 07/05/23 10:13 Oxygen Delivery Method Room Air 07/05/23 10:13 Vital Signs Temperature 97.5 F L 07/05/23 10:13 Pulse Rate 81 07/05/23 10:13 Respiratory Rate 18 07/05/23 10:13 Blood Pressure 134/92 H 07/05/23 10:13 Pulse Oximetry 96 07/05/23 10:13 Oxygen Delivery Method Room Air 07/05/23 10:13 Temperature 97.5 F L 07/05/23 10:13 Pulse Rate 81 07/05/23 10:13 Respiratory Rate 18 07/05/23 10:13 Blood Pressure 134/92 H 07/05/23 10:13 Pulse Oximetry 96 07/05/23 10:13 Oxygen Delivery Method Room Air 07/05/23 10:13 Medications Administered Medications: Generic Name Dose Route Start Last Admin Trade Name Daniel PRN Reason Stop Dose Admin Sodium Chloride 1,000 mls @ 500 mls/hr 07/05/23 10:25 07/05/23 10:40 0.9 % Sodium Chloride 1000 Ml IV 07/05/23 12:24 500 mls/hr .Q2H SLICK Administration Discontinued Medications Generic Name Dose Route Start Last Admin Trade Name Daniel PRN Reason Stop Dose Admin Ketorolac Tromethamine 15 mg 07/05/23 10:24 07/05/23 10:40 Ketorolac 15 Mg/Ml Inj IVP 07/05/23 10:25 15 mg ONCE ONE Administration Ondansetron HCl 4 mg 07/05/23 10:24 07/05/23 10:40 Ondansetron 2 Mg/Ml Inj IVP 07/05/23 10:25 4 mg ONCE ONE Administration Medical Decision Making Lab Data Lab results reviewed: Yes I reviewed the patient's lab results Labs: Lab Results 07/05/23 07/05/23 Range/Units 10:25 Unknown WBC 8.11 (4.50-11.00) K/uL RBC 4.72 (4.30-5.90) m/uL Hgb 13.7 (13.5-17.5) gm/dL Hct 41.8 (37.0-53.0) % MCV 89 (80-100) fL MCH 29 (26-34) pg MCHC 33 (32-36) gm/dL RDW Coeff of Jerry 13.2 (11.5-15.5) % Plt Count 197 (140-440) K/uL Neut % (Auto) 61.9 (42.0-72.0) % Lymph % (Auto) 25.5 (20-44) % [place] % (Auto) 6.3 (0.0-11.0) % Eos % (Auto) 6.0 (0.0-7.0) % Baso % (Auto) 0.1 (0.0-3.0) % Neut # (Auto) 5.01 (1.7-7.0) K/uL Lymph # (Auto) 2.07 (0.90-2.90) K/uL [place] # (Auto) 0.50 (0.00-0.90) K/UL Eos # (Auto) 0.49 (0.00-0.50) K/uL Baso # (Auto) 0.01 (0.00-0.30) K/uL Abs Immat Gran (auto) 0.02 (0.00-0.30) K/uL Imm/Tot Granulo (auto) 0.2 % Sodium 138 (135-149) mmol/L Potassium 4.1 (3.6-5.1) mmol/L Chloride 105 (96-114) mmol/L Carbon Dioxide 18 L (20-32) mmol/L Anion Gap 15 (7-15) mEq/L BUN 16 (7-30) mg/dL Creatinine 1.0 (0.5-1.5) mg/dL Estimated Creat Clear 111.38 Estimated GFR 92 ml/min Glucose 225 H (60-115) mg/dL Calcium 9.3 (8.4-10.6) mg/dL Urine Color Yellow (Yellow) Urine Appearance Clear (Clear) Urine pH 5.5 (5.0-8.5) Ur Specific [place] 1.015 (1.000-1.030) Urine Protein Negative (Negative) Urine Glucose (UA) 2+ A (Negative) Urine Ketones Negative (Negative) Urine Blood Negative (Negative) Urine Nitrite Negative (Negative) Urine Bilirubin Negative (Negative) Urine Urobilinogen 0.2 (0.2-1.0) Ur Leukocyte Esterase Negative (Negative) Urine RBC 0-2 (0-2) Urine WBC 0-2 (0-5) Ur Squamous Epith Cells None (None-Few) Urine Bacteria None (None) Imaging Data CT scan - abdomen: Attestation: I have reviewed the pertinent imaging results. My impression: Did visualize the CT scan, I did not see any evidence of any kidney stones. Will await the Radiology over-read for this. Radiologist's impression: Patient: PAULA OCAMPO Facility:?[facility] Patient ID:?[id number] Site Patient ID:?[id number]. Site :?[id number] Study:?CT Abdomen/Pelvis STONE PROTOCOL-07/05/2023 11:13:55 AM Ordering Physician:TARIQ Final Report: INDICATION: Right-sided flank pain TECHNIQUE: Axial images were obtained from the diaphragm to the pubic symphysis. Reformats were obtained in the coronal and sagittal plane. IV Contrast: None Oral Contrast: None COMPARISON: None. FINDINGS: Lower chest: Unremarkable. Liver: Diffusely decreased density of the liver without focal intrahepatic lesion. Mild hepatomegaly. Gallbladder and bile ducts: Unremarkable. No stones or inflammation. No biliary dilatation. Spleen: Unremarkable. Normal in size without mass. Pancreas: Unremarkable. No mass or inflammation. Adrenal glands: Unremarkable. No nodules. Kidneys: Unremarkable. No masses, stones, or hydronephrosis. Vasculature: Atherosclerosis without abdominal aortic aneurysm. GI tract: The stomach is unremarkable. No dilated loops of large or small intestine. Normal appendix. Mild colonic diverticulosis. Pelvis: Unremarkable. Bones: Unremarkable for age. IMPRESSION: 1. No evidence of nephrolithiasis or hydronephrosis. 2. Mild colonic diverticulosis. 3. Hepatomegaly with moderate hepatic steatosis. Please note that all CT scans at this facility use dose modulation, iterative reconstruction, and/or weight-based dosing when appropriate to reduce radiation dose to as low as reasonably achievable. Dictated by Hima June MD @ 07/05/2023 12:05:59 PM (Electronic Signature) Discharge Plan Discharge Clinical Impression: Abdominal pain Qualifiers: Abdominal location: unspecified location Qualified Code(s): R10.9 - Unspecified abdominal pain Patient Disposition: Home, Self-Care Condition: Stable Instructions: Acute Abdominal Pain (ED) Additional Instructions: Continue to monitor symptoms. Your CT did not show any acute pathology. Labs were reassuring. If you develop increasing abdominal pain, if there is any association with vomiting or fever with this, need to be re-evaluated. Activity Level: Activity as Tolerated Discharge Diet: Diabetic Prescriptions: No Action clonidine HCl 0.1 mg tablet 0.1 mg PO BID atorvastatin 20 mg tablet 20 mg PO DAILY labetalol 200 mg tablet 200 mg PO BID insulin glargine [Lantus U-100 Insulin] 100 unit/mL solution 18 unit subcut QPM meloxicam 15 mg tablet 15 mg PO DAILY allopurinol 100 mg tablet 100 mg PO BID amlodipine 10 mg tablet 10 mg PO DAILY pantoprazole 40 mg tablet,delayed release (DR/EC) 40 mg PO Q12H gabapentin 300 mg capsule 300 mg PO TID Rx Instructions: TAKE 1 CAPSULE BY MOUTH IN THE MORNING, 2 CAPSULES IN THE AFTERNOON, AND 3 CAPSULES AT BEDTIME lisinopril 40 mg tablet 40 mg PO DAILY metformin 500 mg tablet extended release 24 hr 1,000 mg PO BID bupropion HCl 150 mg tablet extended release 24 hr 150 mg PO QAM Jardiance 25 mg tablet 25 mg PO QAM furosemide [Lasix] 40 mg tablet 40 mg PO BID Qty: 14 0RF Paxlovid 300 mg (150 mg x 2)-100 mg tablets,dose pack See Rx Instructions .ROUTE .COMPLEX Qty: 30 0RF Rx Instructions: take TWO 150 mg tablets of nirmatrelvir with ONE 100 mg tablet of ritonavir twice daily for 5 days, patient should stop his atorvastatin and amlodipine, he may restart these both 3 days after he finishes the prescription. Follow Up/Referrals: Provider,Not a Local [Primary Care Provider] - Stand Alone Forms: Post.Bid.Ship Info Instructions
--- NOTE | 2023-07-05 10:24 | CT_ITS ---
Patient: PAULA OCAMPO Facility:?[facility] Patient ID:?[id number] Site Patient ID:?[id number]. Site :?1970 Study:?CT-Abdomen/Pelvis STONE PROTOCOL-07/05/2023 11:13:55 AM Ordering Physician:TARIQ Final Report: INDICATION: Right-sided flank pain TECHNIQUE: Axial images were obtained from the diaphragm to the pubic symphysis. Reformats were obtained in the coronal and sagittal plane. IV Contrast: None Oral Contrast: None COMPARISON: None. FINDINGS: Lower chest: Unremarkable. Liver: Diffusely decreased density of the liver without focal intrahepatic lesion. Mild hepatomegaly. Gallbladder and bile ducts: Unremarkable. No stones or inflammation. No biliary dilatation. Spleen: Unremarkable. Normal in size without mass. Pancreas: Unremarkable. No mass or inflammation. Adrenal glands: Unremarkable. No nodules. Kidneys: Unremarkable. No masses, stones, or hydronephrosis. Vasculature: Atherosclerosis without abdominal aortic aneurysm. GI tract: The stomach is unremarkable. No dilated loops of large or small intestine. Normal appendix. Mild colonic diverticulosis. Pelvis: Unremarkable. Bones: Unremarkable for age. IMPRESSION: 1. No evidence of nephrolithiasis or hydronephrosis. 2. Mild colonic diverticulosis. 3. Hepatomegaly with moderate hepatic steatosis. Please note that all CT scans at this facility use dose modulation, iterative reconstruction, and/or weight-based dosing when appropriate to reduce radiation dose to as low as reasonably achievable. Dictated by Hima June MD @ 07/05/2023 12:05:59 PM Signed by:?Hima June MD @07/05/2023 12:05:59 PM (Electronic Signature)
[2023-07-05 10:38] LABS: Basophils Absolute Auto 0.01 K/uL (0.00-0.30); Basophils Percent Auto 0.1 % (0.0-3.0); Eosinophils Absolute Auto 0.49 K/uL (0.00-0.50); Hematocrit 41.8 % (37.0-53.0); Hemoglobin* 13.7 gm/dL (13.5-17.5); Immature Granulocytes Abs Auto 0.02 K/uL (0.00-0.30); Immature Granulocytes Pct Auto 0.2 %; Lymphocytes Absolute Auto 2.07 K/uL (0.90-2.90); Lymphocytes Percent Auto 25.5 % (20-44); Mean Corpuscular HGB Conc 33 gm/dL (32-36); Mean Corpuscular Hemoglobin 29 pg (26-34); Mean Corpuscular Volume 89 fL (80-100); Monocytes Percent Auto 6.3 % (0.0-11.0); Neutrophils Absolute Auto 5.01 K/uL (1.7-7.0); Neutrophils Percent Auto 61.9 % (42.0-72.0); Platelet Count* 197 K/uL (140-440); RDW Coefficient of Variation % 13.2 % (11.5-15.5); Red Blood Count 4.72 m/uL (4.30-5.90); White Blood Count* 8.11 K/uL (4.50-11.00)
[2023-07-05 10:40] LABS: Slide Review Reflex No
[2023-07-05] MEDS: 0.9 % SODIUM CHLORIDE 1000 ml 1,000 ML 500 ML IV (10:40)
[2023-07-05] MEDS: ONDANSETRON 2 MG/ML inj 4 MG IVP (10:40)
[2023-07-05] MEDS: KETOROLAC 15 MG/ML inj IVP (10:40)
[2023-07-05 10:57] LABS: Chloride* 105 mmol/L (96-114)
[2023-07-05 10:58] LABS: Potassium* 4.1 mmol/L (3.6-5.1); Sodium* 138 mmol/L (135-149)
[2023-07-05 11:00] LABS: Est. Creatinine Clearance* 111.38; Estimated Glomerular Filt Rate 92 ml/min
[2023-07-05 11:00] LABS: Appearance Urine Clear (Clear); Bilirubin Urine Negative (Negative); Blood Urine Negative (Negative); Color Urine Yellow (Yellow); Glucose Urine 2+ (Negative); Ketones Urine Negative (Negative); Leukocyte Esterase Urine Negative (Negative); Nitrite Urine Negative (Negative); Protein Urine Negative (Negative); Specific Gravity Urine 1.015 (1.000-1.030); Urobilinogen Urine 0.2 (0.2-1.0); pH Urine 5.5 (5.0-8.5)
[2023-07-05 11:01] LABS: Anion Gap 15 mEq/L (7-15); Blood Urea Nitrogen* 16 mg/dL (7-30); Calcium* 9.3 mg/dL (8.4-10.6); Carbon Dioxide* 18 mmol/L (20-32); Glucose* 225 mg/dL (60-115)
[2023-07-05 11:28] LABS: RBC Urine 0-2 (0-2); WBC Urine 0-2 (0-5)
[2023-07-05 12:30] VITALS: BP 143/105; PULSE 70; O2SAT 98
== END 2023-07-05 12:51 | disposition home or self-care (01) ==
PROVIDERS: Emergency Provider Family Medicine
DX: R10.31 Right lower quadrant pain (principal)
CPT/HCPCS: 36415; 74176; 80048; 81001; 85025; 94761; 96374; 96375; 99283; 99284; J1885; J2405; J7030

== ENCOUNTER 2023-10-25 19:57 | Emergency (ER) | payer OTHER, SELFPAY ==
--- OUTSIDE RECORDS SUMMARY | 2023-10-25 20:02 | XMS_ITS | Encounter Summary ---
Author Organization [facility] Address [address] [place] [address] Care Team Providers Care Mail Courier Name Role Phone Silvia Robison M.D. Primary Care Provider Reason for Visit * Reason Comments Dental Pain Encounter Details Date Type Department Care Team (Late st Contact Info) Description 09/02/2023 2:44 AM CDT - 09/02/2023 4:34 AM CDT Emergency [facility] [address] [place] [phone] Impacted Tooth (Primary Dx) Discharge Disposition: Home or Self Care Social History Tobacco Use Types Packs/Day Years Used Date Smoking Tobacco: Former Cigarettes 0.3 37.1 0 09/21/1983 - 10/31/2020 Passive Smoke Exposure: Current Smokeless Tobacco: Never Quit: 01/12/2018 Comments:1 pack per week Alcohol Use Standard Drinks/Week Comments No 0 (1 standard drink = 0.6 oz pur e alcohol) Humiliation, Afraid, Rape, and Kick questionnair e Answer Date Recorded Within the last year, have y ou been afraid of your partner or ex-partner? No 06/22/2022 Within the last year, have y ou been humiliated or emotionally abused in other ways by your partner or ex-partner? No Within the last year, have y ou been kicked, hit, slapped, or otherwise physically hurt by your partner or ex-partner? No 06/22/2022 Within the last year, have y ou been raped or forced to have any kind of sexual activity by your partner or ex-partner? No 06/22/2022 Social Connection and Isolation Panel [NHANES] A nswer Date Recorded In a typical week, how many times do you talk on the phone with family, friends, or neighbors? Three times a week 06/22/2022 How often do you get togethe r with friends or relatives? Never 06/22/2022 How often do you attend chur ch or pentecostalism services? Never 06/22/2022 Do you belong to any clubs o r organizations such as mu-ism groups, unions, fraternal or athletic groups, or school groups? No 06/22/2022 How often do you attend meet ings of the clubs or organizations you belong to? Never 06/22/2022 Are you , , di vorced, , never , or living with a partner? 06/22/2022 AUDIT-C Answer Date Recorded Q1: How often do you have a drink containing alc ohol? Never 06/22/2022 Average Number of Drinks Not on file 023 Frequency of Binge Drinking Not on file 06/2022 Overall Financial Resource Strain (CARDIA) Answe r Date Recorded How hard is it for you to pa y for the very basics like food, housing, medical care, and heating? Not hard at all 06/22/2022 PHQ-2 Answer Date Recorded PHQ-2 Score 1 03/14/2023 [facility] - Occupational Stress Questionnaire Answer Date Recorded Do you feel stress - tense, restless, nervous, or anxious, or unable to sleep at night because your mind is troubled all the time - these days? Not at all 06/22/2022 Exercise Vital Sign Answer Date Recorde d On average, how many days pe r week do you engage in moderate to strenuous exercise (like a brisk walk)? 2 days 06/22/2022 On average, how many minutes do you engage in exercise at this level? 10 min 06/22/2022 Hunger Vital Sign Answer Date Recorded Within the past 12 months, y ou worried that your food would run out before you got the money to buy more. Never true 06/23/19 23 Within the past 12 months, t he food you bought just didn't last and you didn't have money to get more. Never true 06/22/2022 PRAPARE - Transportation Answer Date Re corded In the past 12 months, has l ack of transportation kept you from medical appointments or from getting medications? No 06/2022 In the past 12 months, has l ack of transportation kept you from meetings, work, or from getting things needed for daily living? No 06/22/2022 Housing Stability Vital Sign Answer Juan e Recorded In the last 12 months, was t here a time when you were not able to pay the mortgage or rent on time? Yes 06/22/2022 In the last 12 months, how many places have you lived? 2 06/22/2022 In the last 12 months, was t here a time when you did not have a steady place to sleep or slept in a senior care (including now)? No 06/22/2022 Depression Answer Date Recor ded PHQ-9 Total Score (max 27) 5 03/14 Nutrition Answer Date Recorded On average, how many serving s of fruits and vegetables do you eat per day (serving size is equal to 1 cup or approximately the size of a tennis ball)? 2-3 06/22/2022 Dental Answer Date Recorded Dental: Regular Dentist No 06/23/19 Employment Answer Date Recorded Employment status Employed and actively working without restrictions 06/22/2022 Education Answer Date Recorded What is the highest level of school you have completed or the highest degree you have received? 12th grade 05/19/2019 Sex and Gender Information Value Date Recorded Sex Assigned at Male 08/16/2019 8:50 PM CDT Gender Identity Male 05/21/2020 12:19 PM SHIATSU THERAPIST Sexual Orientation Straight 07/10/2017 5: 27 PM CDT Job Start Date Occupation Industry Not on file Not on file Not on file documented as of this encounter Medications at Time of Discharge Medication Sig Dispensed Refills Start Date End Date acetaminophen (for_TYLENOL) 500 mg tablet Take 2 tablets by mouth every 6 (six) hours as needed. for pain; Can purchase over the counter; Maximum acetaminophen should not exceed 4,000 mg in 24 hours from all sources. 06/07/2017 allopurinoL (ZYLOPRIM) 100 mg tablet Take 1 tablet (100 mg total) by mouth 2 (two) times a day. 180 tablet 3 11/19/2022 amLODIPine (NORVASC) 10 mg tablet Take 1 tablet (10 mg total) by mouth daily. 90 tablet 3 11/19/2022 atorvastatin (LIPITOR) 20 mg tablet Take 1 tablet (20 mg total) by mouth daily. 90 tablet 3 11/19/2022 avanafiL 50 mg tabletIndications:Dys function Erectile Take 1 tablets as needed for erectile dysfunction. If blood pressure is not low can take an additional pill 30 tablet 3 03/15/2023 BD Veo Insulin Syringe UF 0.3 mL 31 gauge x 15/64 syringe USE ONCE DAILY 100 each 3 08/24/2022 blood sugar diagnostic strips 2 test daily. 200 test 3 10/12/2022 blood-glucose meter [facility] [place] Test as directed for diabetes control. 1 each 11/24/2020 buPROPion XL (WELLBUTRIN XL) 150 mg 24 hr tablet Take 1 tablet (150 mg total) by mouth every morning. 90 tablet 3 11/19/2022 chlorhexidine (PERIDEX) 0.12 % mouthwash Swish and spit 15 mL 2 (two) times a day. Swish and spit 15 mL 2 (two) times a day 473 mL 03/12/2023 cloNIDine (CATAPRES) 0.1 mg tablet Take 1 tablet (0.1 mg total) by mouth 2 (two) times a day. 180 tablet 3 11/19/2022 empagliflozin (Jardiance) 25 mg tabletIndications:Catherine betes Mellitus Type 2 Hyperglycemia (HCC) Take 1 tablet (25 mg total) by mouth every morning before breakfast. 90 tablet 3 11/19/2022 furosemide (LASIX) 20 mg tablet Take 1 tablet (20 mg total) by mouth daily. 30 tablet 01/14/2023 gabapentin (NEURONTIN) 300 mg capsuleIndications:Ne uropathy TAKE 1 CAPSULE BY MOUTH IN THE MORNING, 2 CAPSULES IN THE AFTERNOON, AND 3 CAPSULES AT BEDTIME. 270 capsule 05/10/2023 labetaloL (NORMODYNE) 200 mg tablet Take 1 tablet (200 mg total) by mouth 2 (two) times a day. 180 tablet 3 11/19/2022 lisinopriL (PRINIVIL,ZESTRIL) 40 mg tablet Take 1 tablet (40 mg total) by mouth daily. 90 tablet 3 11/19/2022 meloxicam (MOBIC) 15 mg tabletIndications:Jerry n Back,Pain Leg Right Take 1 tablet (15 mg total) by mouth daily. 90 tablet 3 11/19/2022 metFORMIN XR (GLUCOPHAGE-XR) 500 mg 24 hr tablet Take 2 tablets (1,000 mg total) by mouth 2 (two) times a day. 360 tablet 3 11/19/2022 mometasone (NASONEX) 50 mcg/actuation nasal sprayIndications:Mario rgy Seasonal Administer 2 sprays into each nostril daily. 17 g 5 03/15/2023 03/14/2024 pantoprazole (PROTONIX) 40 mg EC tablet Take 1 tablet (40 mg total) by mouth 2 (two) times a day before breakfast and dinner. 180 tablet 3 11/19/2022 sodium chloride (SALINE NASAL MIST NASAL) Administer into nostril(s) daily as needed. For nasal congestion insulin glargine (Lantus U-100 Insulin) 100 unit/mL injectionIndications: Diabetes Mellitus Type 2 Hyperglycemia (HCC) Inject 20 mg daily subcutaneously. Increase 2 units every 3 days if your blood sugars are above 150. Max 30 units daily. 18 mL 3 01/03/2023 10/09/2023 documented as of this encounter Plan of Treatment Upcoming Encounters Date Type Department Care Team (Late st Contact Info) Description 11/06/2023 12:20 PM CDT Appointment Department of Laboratory Medicine in [place], [place] [address] [place] [phone] Silvia Robison M.D. [address] [place] [phone] 11/06/2023 12:30 PM CDT Appointment Department of Laboratory Medicine in [place], [place] [address] [place] [phone] Silvia Robison M.D. [address] [place] [phone] 11/06/2023 1:00 PM CDT Comprehensive Visit Department of Family Medicine, [facility], in [place], [place] [address] [place] [phone] Silvia Robison M.D. [address] [place] [phone] documented as of this encounter Procedures Procedure Name Priority Date/Time Associated Diagnosis Comments CT MAXILLOFACIAL WITH IV CONTRAST RAD - Semiurgent (Fast; most ED patients; some inpatients) 09/02/2023 3:55 AM CDT documented in this encounter Results * CT Maxillofacial with IV Contrast (09/02/2023 3:55 AM CDT) Anatomical Region Laterality Modality Jaw, Head, Neuroradiology RS T LOS, Neuroradiology ARZ LOS, Neuroradiology FLA LOS N/A Computed Tomography 09/02/2023 3:55 AM CDT Impressions 09/02/2023 4:10 AM CDT Findings of odontogenic infection as described. Narrative 09/02/2023 4:10 AM CDT EXAM: CT MAXILLOFACIAL WITH IV CONTRAST COMPARISON: None FINDINGS: Multiple missing teeth. Periapical lucency about the 2nd most posterior maxillary molar on the left. No evidence of infection outside the oral cavity. No periorbital inflammatory changes. No abscess or drainable fluid collection. Mildly enlarged bilateral mandibular lymph nodes could be reactive. Mild paranasal sinus mucosal thickening. Left mastoid effusion. Procedure Note Pierce Humphrey M.D. - 09/02/2023 EXAM: CT MAXILLOFACIAL WITH IV CONTRAST COMPARISON: None FINDINGS: Multiple missing teeth. Periapical lucency about the 2nd mostposterior maxillary molar on the left. No evidence of infection outsidethe oral cavity. No periorbital inflammatory changes. No abscess ordrainable fluid collection. Mildly enlarged bilateral mandibular lymph nodes could be reactive. Mildparanasal sinus mucosal thickening. Left mastoid effusion. IMPRESSION: Findings of odontogenic infection as described. Jona PERRIN CT PROCEDURES documented in this encounter Visit Diagnoses Diagnosis Impacted Tooth- Primary documented in this encounter Administered Medications Inactive Administered Medications - up to 3 most recent administrations Medication Order MAR Action Action Date Dose Rate Site iohexoL 300 mg iodine/mL solution 120 mL (OMNIPAQUE) 120 mL, intravenous, Once in imaging, contrast, Starting on Sat09/02/23 at 0356, For 1 dose Given 09/02/2023 3:45 AM CDT 120 mL Right Hand sodium chloride 0.9 % flush 65 mL 65 mL, intravenous, Once, On Sat09/02/23 at 0400, For 1 dose Given 09/02/2023 3:45 AM CDT 65 mL Right Hand sodium chloride 0.9 % injection 10 mL 10 mL, intravenous, Once, On Sat09/02/23 at 0400, For 1 dose Given 09/02/2023 3:45 AM CDT 10 mL Right Hand documented in this encounter Active and Recently Administered Medications Times are shown in CDT. Scheduled Medication Order 08/31/2023 09/01/2023 09/02/2023 sodium chloride 0.9 % flush 65 mL (COMPLETED) 65 mL, intravenous, Once, On Sat09/02/23 at 0400, For 1 dose 0345 (Given - Provid er: Remy Heck(Stacy)(CT), R.T.(R)) sodium chloride 0.9 % injection 10 mL (COMPLETED) 10 mL, intravenous, Once, On Sat09/02/23 at 0400, For 1 dose 0345 (Given - Provid er: Remy Heck(R)(CT), R.T.(R)) PRN Medication Order 08/31/2023 09/01/2023 09/02/2023 iohexoL 300 mg iodine/mL solution 120 mL (OMNIPAQUE) (COMPLETED) 120 mL, intravenous, Once in imaging, contrast, Starting on Sat09/02/23 at 0356, For 1 dose 0345 (Given - Provid er: Remy Heck(R)(CT), R.T.(R) - Comment: [id number]) documented in this encounter Additional Health Concerns Assessment Noted Time PHQ-9 Depression Total Score: 5 03/14/20 8:45 PM SHIATSU THERAPIST documented as of this encounter Care Teams Mail Courier Relationship Specialty Start Date End Date Silvia Robison M.D. [address] [place] [phone] PCP - General Family Medicine 09/27/22 09/16/23 documented as of this encounter
--- OUTSIDE RECORDS SUMMARY | 2023-10-25 20:02 | XMS_ITS | Clinical Summary ---
Author Organization [facility] Address [address] [place] [address] Care Team Providers Care Radio Producer Name Role Phone Silvia Robison M.D. Primary Care Provider Source Comments Patient records contain information from all sites at [facility]. For routine questions regarding patient records, call [phone] during business hours, M-F 8:00 AM - 5:00 PM Central Time. Record requests for emergency care only can be directed to [phone] at any time.[facility] Allergies Active Allergy Reactions Criticality Noted Date Comments Coconut Anaphylaxis High 01/05/2017 Fentanyl Hives (Reselect Reaction) Medium 01/05/2017 Morphine GI intolerance,Nause a And Vomiting,Other (see comments) Medium 01/05/2017 Nalbuphine Hives (Reselect Reaction) Medium 01/05/2017 Sulfamethoxazole-Trimethop rim Other (see comments) Medium 12/27/2020 Welts Sulfa (Sulfonamide Antibiotics) Itching 01/05/2017 Medications Medication Sig Dispensed Refills Start Date End Date Status acetaminophen (for_TYLENOL) 500 mg tablet Take 2 tablets by mouth every 6 (six) hours as needed. for pain; Can purchase over the counter; Maximum acetaminophen should not exceed 4,000 mg in 24 hours from all sources. 8 Active sodium chloride (SALINE NASAL MIST NASAL) Administer into nostril(s) daily as needed. For nasal congestion Active blood-glucose meter misc Test as directed for diabetes control. 1 each 1 Active BD Veo Insulin Syringe UF 0.3 mL 31 gauge x 15/64 syringe USE ONCE DAILY 100 each 3 3 Active blood sugar diagnostic strips 2 test daily. 200 test 3 3 Active amLODIPine (NORVASC) 10 mg tablet Take 1 tablet (10 mg total) by mouth daily. 90 tablet 3 3 Active atorvastatin (LIPITOR) 20 mg tablet Take 1 tablet (20 mg total) by mouth daily. 90 tablet 3 3 Active labetaloL (NORMODYNE) 200 mg tablet Take 1 tablet (200 mg total) by mouth 2 (two) times a day. 180 tablet 3 3 Active lisinopriL (PRINIVIL,ZESTRIL) 40 mg tablet Take 1 tablet (40 mg total) by mouth daily. 90 tablet 3 3 Active cloNIDine (CATAPRES) 0.1 mg tablet Take 1 tablet (0.1 mg total) by mouth 2 (two) times a day. 180 tablet 3 3 Active empagliflozin (Jardiance) 25 mg tabletIndications: Diabetes Mellitus Type 2 Hyperglycemia (HCC) Take 1 tablet (25 mg total) by mouth every morning before breakfast. 90 tablet 3 3 Active metFORMIN XR (GLUCOPHAGE-XR) 500 mg 24 hr tablet Take 2 tablets (1,000 mg total) by mouth 2 (two) times a day. 360 tablet 3 3 Active allopurinoL (ZYLOPRIM) 100 mg tablet Take 1 tablet (100 mg total) by mouth 2 (two) times a day. 180 tablet 3 3 Active pantoprazole (PROTONIX) 40 mg EC tablet Take 1 tablet (40 mg total) by mouth 2 (two) times a day before breakfast and dinner. 180 tablet 3 3 Active meloxicam (MOBIC) 15 mg tabletIndications: Pain Back,Pain Leg Right Take 1 tablet (15 mg total) by mouth daily. 90 tablet 3 3 Active buPROPion XL (WELLBUTRIN XL) 150 mg 24 hr tablet Take 1 tablet (150 mg total) by mouth every morning. 90 tablet 3 3 Active furosemide (LASIX) 20 mg tablet Take 1 tablet (20 mg total) by mouth daily. 30 tablet 09/25/202 3 Active chlorhexidine (PERIDEX) 0.12 % mouthwash Swish and spit 15 mL 2 (two) times a day. Swish and spit 15 mL 2 (two) times a day 473 mL 3 Active mometasone (NASONEX) 50 mcg/actuation nasal sprayIndications:A llergy Seasonal Administer 2 sprays into each nostril daily. 17 g 5 3 03/14/20 24 Active avanafiL 50 mg tabletIndications: Dysfunction Erectile Take 1 tablets as needed for erectile dysfunction. If blood pressure is not low can take an additional pill 30 tablet 3 3 Active gabapentin (NEURONTIN) 300 mg capsuleIndications :Neuropathy TAKE 1 CAPSULE BY MOUTH IN THE MORNING, 2 CAPSULES IN THE AFTERNOON, AND 3 CAPSULES AT BEDTIME. 270 capsule 4 Active insulin glargine (Lantus U-100 Insulin) 100 unit/mL injectionIndicatio ns:Diabetes Mellitus Type 2 Hyperglycemia (HCC) Inject 20 mg daily subcutaneously. 18 mL 3 4 Active insulin glargine (Lantus U-100 Insulin) 100 unit/mL injectionIndicatio ns:Diabetes Mellitus Type 2 Hyperglycemia (HCC) Inject 20 mg daily subcutaneously. Increase 2 units every 3 days if your blood sugars are above 150. Max 30 units daily. 18 mL 3 3 10/09/19 24 Discontinu ed(Reorder ) Active Problems Problem Noted Date Diagnosed Date Albuminuria 09/07/2022 Dizziness 06/22/2022 Overview: Being worked up by HTN clinic. Recommended autonomic screening. Patient has not scheduled yet Elevated Liver Enzyme Test 05/17/2022 Overview: -noted on previous lab draws versus dating back to 2019 Last Assessment & Plan: -continue to monitor. -consider liver ultrasound to assess for nonalcoholic fatty liver disease -consider viral hepatitis panel Hypertensive Chronic Kidney Disease (CKD) Stage 3a Glomerular Filtration Rate (GFR) 45 To 59 05/17/2022 Overview: 02/2021: Average blood pressure was elevated with an awake average of 146/96 mm Hg there was a lack of nocturnal decline within a sleep average of 148/95 mm Hg. The patient also had an overnight oximetry screening test which was negative for sleep apnea. Referred the HTN clinic 12/2019 - taking lisinopril 40 mg, labetalol 200 mg bid, clonidine 0.1 mg bid, amlodipine 10 mg -Cannot tolerate HCTZ due to gout Last Assessment & Plan: -Blood pressures in clinic were at goal today -Continue to monitor. Depressive Disorder 05/17/2022 Overview: 22 April 2022: PHQ = 24 -patient tells me he has previously been on Paxil, lithium, Trileptal and was diagnosed with bipolar in [place]. -many acute stressors such as needing to find new housing, financial stress, and employment stress. Last Assessment & Plan: -increase Wellbutrin that was previously prescribed for smoking cessation from 150 mg daily to 300 mg daily. -PHQ findings were inconsistent with physical exam (MSE); continue to assess mood have follow-up appointments. -social work consult to help with housing. -Consider SSRI at future visits Hyperlipidemia 08/26/2020 Overview: Goal LDL < 70. Has been prescribed Lipitor 20 mg daily. Sinusitis Chronic 07/20/2020 Overview: -Currently on Fluticasone nasal Last Assessment & Plan: -Will obtain more history at next visit -Consider ENT referral/ CT sinus/maxillofacial Nicotine Dependence Cigarettes In Remission 06/22 Overview: -Quit smoking 2020 -On Wellbutrin - still smokes but she is involved at Nicotine dependency clinic Last Assessment & Plan: -Increase Wellbutrin from 150 to 300 in the setting of PHQ of 24 Lesion Kidney 07/20/2020 Overview: Ultrasound 07/20/20: 1.2 cm solid exophytic vascular mass arising from the anterior aspect of the inferior right kidney is suspicious for a primary renal neoplasm. Urology/renal oncology July 2020: Given the small size, discussed with the patient that we would recommend surveillance and plan will be for him to return in 3-6 months with a dedicated CT of the abdomen with and without contrast. Follow-up will be with a renal mass provider at that time. 18 April 2022: [address] scan 26 June 2022: Econsult to nephrology: Since kidney cancer rarely metastasizes when it is less than 4 cm in diameter, given the patient's age (51) and the probable duration of annual follow-up, it might be reasonable to ask Urology to consider cryoablation of the mass. Last Assessment & Plan: -At one of his emergency department visits they wanted follow up with urology. -He will schedule this appointment today. If he is lost to follow up, consider Econsult. Morbid Obesity Body Mass Ind ex >= 35 with Comorbid Condition 04/18/2020 Overview: Baseline BMI > 37, medically complicated by hypertension, diabetes mellitus, hyperlipidemia. Gout 10/15/2019 Overview: Allopurinol 100 mg twice daily 10/27/2020 Discussed acute vs chronic Rx gout Acute: for inflammation - continue colchicine, could consider Prednisone, could consider tapping and injecting knee joint For pain - continue Tylenol, add oxycodone 5 mg every 6 hours as needed over the next 3 days Chronic: recommended checking with Ms. Lucas 1) is there a concern about allopurinol and your kidney stones? 2) what is the best dose of allopurinol - uric acid should be below 5-6 (last time it was checked was September 2019 and it was 9.0) Gastroesophageal Reflux Disease 09/23/2017 Overview: Protonix 40 b.i.d. PPIs started in 2017 Last Assessment & Plan: -Continue protonix 40mg BID -At next appointment EGD with biopsy to assess for H pylori -I do wonder there is a component of diabetic gastroparesis playing into symptoms given history of improvement with Reglan Dysfunction Erectile 09/23/2017 Overview: Previously on Viagra and Cialis. Neuropathy Median Left Overview: Gabapentin 300 am, 600 pm, 900 HS Meloxicam 15 mg Diabetes Mellitus Type 2 Hyperglycemia Overview: Currently on Metformin 1 g twice daily Jardiance 10 mg Holding glipizide March 2022. Previous medications: GLP1s (possibly Victoza and a few others, doesn't recall name; caused worsening nausea and GI upset) and Januvia (tolerated well but wasn't covered by insurance) Foot exam done 05/17 Labs ordered for 06/17 Instructed to bring log in appointment in june Diabetes Optimal Care Composite Score: 4 Values used to calculate this score: Points Metrics 0 Diabetes Optimal Care Composite - HbA1c: 0 1 Diabetes Optimal Care Composite - Blood Pressure: 1 1 Diabetes Optimal Care Composite - Aspirin/Antithrombotic: 1 1 Diabetes Optimal Care Composite - LDL/Statin Use: 1 1 Diabetes Optimal Care Composite - Smoking Status : 1 Resolved Problems Problem Noted Date Diagnosed Date Resolved Date Amblyopia Left Eye 05/24/2021 3 Refraction Disorder 05/24/2021 05/17/19 23 Nephrolithiasis 07/15/2019 06/22/2022 Overview: Added automatically from request for surgery [id number] Pain Hand Left 09/24/2017 07/20/2020 Hypertension Essential Primary 09/23/2017 05/17/2022 Overview: 02/2021: Average blood pressure was elevated with an awake average of 146/96 mm Hg there was a lack of nocturnal decline within a sleep average of 148/95 mm Hg. The patient also had an overnight oximetry screening test which was negative for sleep apnea. Referred the HTN clinic 12/2019 - taking lisinopril 40 mg, labetalol 200 mg bid, clonidine 0.1 mg bid, amlodipine 10 mg Last Assessment & Plan: Blood pressure in clinic is well controled today. Continue current management. Carpal Tunnel Syndrome Left 06/18/2017 05/17/2022 Overview: S/p release in 2018 Limitation Of Motion Hand Joint Left 08/27/2019 Pain Wrist Left 08/27/2019 Encounters Date Type Department Care Team Description 10/09/2023 Refill Department of Family Medicine, [facility], in [place], [place] [address] [place] [phone] Silvia Robison M.D. Med Refill 09/02/2023 2:44 AM CDT - 09/02/2023 4:34 AM CDT Emergency [facility] [address] [place] [phone] Impacted Tooth (Primary Dx) Discharge Disposition: Home or Self Care from Last 3 Months Immunizations Name Administration Dates Next Due HepA Adult 06/22/2022(Deferred: Patient dec ision) HepB Adult 05/12/2021 07/10/2021 HepB Adult (HEPLISAV-B) 07/20/2020,10/15/2019 PCV20 06/22/2022, 3(Deferred: Patient decision) PPD Test 01/06/2019 RZV (SHINGRIX) 06/22/2022(Deferred: Patient dec ision) SARS-COV-2 (COVID-19) - PFIZ ER (Discontinued)(12 years or older) 05/01/2021 SARS-COV-2 (COVID-19) - PFIZ ER BIVALENT TS(Discontinued)(12 YEARS OR OLDER) 06/22/2022(Deferred: Patient Refused) Tdap 10/15/2019 influenza vaccine quad (FLUZONE/FLUARIX) (6 months and older)(PF) 06/22/2022(Deferred: Patient decision) Family History Medical History Relation Name Comments Sleep apnea Father Kirk Carter SR. Alcohol abuse Maternal Grandfather Tashi Proctor Coronary artery disease Maternal Grandfather Tashi Olson Hypertension Maternal Grandfather Simon Lee Stroke Maternal Grandfather Tashi Hitesh Breast cancer Mother Sienna Vuong Unexplained Mother Sienna Vuong Diabetes Other 2 Grandmother Stroke Other 2 Grandmother Stroke Other 3 Grandfather Asthma Paternal Grandmother Joanna Carter Diabetes Paternal Grandmother Joanna Carter Relation Name Status Comments Father Kirk Carter SR. Maternal Grandfather Tashi Proctor Mother Sienna Vuong Other 1 Grandmother Other 2 Grandmother Other 3 Grandfather Paternal Grandmother Joanna Carter Social History Tobacco Use Types Packs/Day Years Used Date Smoking Tobacco: Former Cigarettes 0.3 37.1 0 09/21/1983 - 10/31/2020 Passive Smoke Exposure: Current Smokeless Tobacco: Never Quit: 01/12/2018 Comments:1 pack per week Alcohol Use Standard Drinks/Week Comments No 0 (1 standard drink = 0.6 oz pur e alcohol) [facility] Utilities Answer Date Recorded In the past 12 months has e electric, gas, oil, or water [employer] threatened to shut off services in your home? Patient declined 10/12/2023 Humiliation, Afraid, Rape, and Kick questionnair e [...] often do you attend chur ch or advent services? Never 06/22/2022 Do you belong to any clubs o r organizations such as jehovah's witness groups, unions, fraternal or athletic groups, or [...] 06/22/2022 PHQ-2 Answer Date Recorded PHQ-2 Score 2 10/09/2023 [facility] - Occupational [...] to strenuous exercise (like a brisk walk)? 0 days 10/12/2023 On average, how many minutes do you engage in exercise at this level? 0 min 10/12/2023 Hunger Vital Sign Answer Date Recorded Within the past 12 months, y ou worried that your food would run out before you got the money to buy more. Sometimes true Within the past 12 months, t he food you bought just didn't last and you didn't have money to get more. Never true PRAPARE - Transportation Answer Date Re corded In the past 12 months, has l ack of transportation kept you from medical appointments or from getting medications? No 09/21 In the past 12 months, has l ack of transportation kept you from meetings, work, or from getting things needed for daily living? No 10/12/2023 Depression Answer Date Recor ded PHQ-9 Total Score (max 27) 15 10/08 Nutrition Answer Date Recorded On average, how many serving s of fruits and vegetables do you eat per day (serving size is equal to 1 cup or approximately the size of a tennis ball)? 0-2 10/12/2023 Dental Answer Date Recorded Dental: Regular Dentist No 06/23/19 Employment Answer Date Recorded Employment status Employed and actively working without restrictions 10/12/2023 Housing Stability Answer Date Recorded What is your living situation today? I [address] [place] [address] to live 10/12/2023 Education Answer Date Recorded What is the highest level of school you have completed or the highest degree you have received? 12th grade 05/19/2019 Sex and Gender Information Value Date Recorded Sex Assigned at Male 08/16/2019 8:50 PM CDT Gender Identity Male 05/21/2020 12:19 PM [employer]IL SPOT W[employer]ER Sexual Orientation Straight 07/10/2017 5: 27 PM CDT Job Start Date Occupation Industry Not on file Not on file Not on file Last Filed Vital Signs Vital Sign Reading Time Taken Comments Blood Pressure 118/81 06/21/2023 10:51 AM OIL SPOT W[employer] Pulse 83 06/21/2023 10:51 AM OIL SPOT W[employer] Temperature 36.1 ??C (96.9 ??F) 03/15/2023 11:[address] Respiratory Rate 18 06/16/2022 4:23 PM OIL [employer] Oxygen Saturation 97% 06/16/2022 6:15 PM OIL [employer]OT W[employer]ER Inhaled Oxygen Concentration - - Weight 126 kg (277 lb 1.9 oz) 06/21/2023 10:51 A M [employer]IL [employer]OT W[employer] Height 196 cm (6' 5.17) 06/21/2023 10:51 AM OIL [employer]OT W[employer] Body Mass Index 32.72 06/21/2023 10:51 AM OIL SPOT W[employer]ER Plan of Treatment Upcoming Encounters Date Type Department Care Team (Late st Contact Info) Description 11/06/2023 12:20 PM CDT Appointment Department of Laboratory Medicine in [place], [place] [address] [place] [phone] Silvia Robison M.D. [address] [place] [phone] 11/06/2023 12:30 PM CDT Appointment Department of Laboratory Medicine in [place], [place] [address], [place] [phone] Silvia Robison M.D. [address], [place] [phone] 11/06/2023 1:00 PM CDT Comprehensive Visit Department of Family Medicine, [facility], in [place], [place] [address] [place] [address] Silvia Robison M.D. [address] [place] [address] Health Maintenance Due Date Last Done Comments CT Colonography 1972 Cologuard 1972 Colonoscopy 1972 Colorectal Cancer Screening 1972 FIT 1972 HIV Screening 1972 Hepatitis C Screening 1972 Zoster Vaccines (1 of 2) 2022 COVID-19 Vaccine (2022-2 4 season) 2022 05/01/2021, 03/03/2021 Diabetic Office Visit with F oot Exam 05/17/2023 05/17/2022, 04/18/2020 Hemoglobin A1C 06/15/2023 03/15/2023, 10/20, 06/22/2022, Additional history exists Influenza Vaccine (#1) 2024 Depression Monitoring (PHQ-9) 02/08/2024 10/09/2023 Urine Albumin 03/15/2024 03/15/2023, 12/11/2021, 08/26/2020, Additional history exists Visit: Chronic Disease, age 18+ 03/15/2024 , 06/22/2022 Office Visit for Blood Press ure Check / Re-check 06/20/2024 06/21/2023 Dilated Eye Exam 07/08/2024 07/09/2023, 05/2021, 07/19/2020 (Performed elsewhere) Creatinine Level (Kidney Fun ction Test) 09/01/2024 09/02/2023, 07/09/2023, 03/15/2023, Additional history exists Potassium Level 09/01/2024 09/02/2023, 06/20, 03/15/2023, Additional history exists Sodium Level 09/01/2024 09/02/2023, 06/20, 03/15/2023, Additional history exists Lipid (Cholesterol) Screening 07/08/2028, 06/22/2022, 08/26/2020, Additional history exists DTaP,Tdap,and Td Vaccines (2 - Td or Tdap) 10/14/2029 10/15/2019 Hepatitis B Vaccines Completed 05/12/2021, 07/20/2020, 10/15/2019 Pneumococcal vaccine (0-64 years) Completed 023 Medical Devices Implanted Type Area Tank Crewmember Device Identifier Shelf Expiration Date Model / Serial / Lot Chips Cancellous 5cc - [id number] Implanted:Qty: 1 on 06/07/2017 Bone or Tissue Other/Legacy - See Implant Description [employer] Description:Device Manufactu rer - [employer]. Body Location - Other. bone for packing defect. Device Status Text - [id number]. Peg Smooth 2.0mm X 18mm Long - Luke [id number] Implanted:Qty: 3 on 06/07/2017 Hardware e.g. pins/screws /rods BioMet Description:Device Manufactu rer - [employer]. Device Status Text - [id number]. Peg Smooth 2.0mm X 20mm Long - Luke [id number] Implanted:Qty: 2 on 06/07/2017 Hardware e.g. pins/screws /rods [employer]Met Description:Device Manufactu rer - [employer]. Device Status Text - [id number]. Screw-Cortical 3.5mm X 14mm Long - Luke [id number] Implanted:Qty: 3 on 06/07/2017 Hardware e.g. pins/screws /rods BioMet Description:Device Manufactu rer - [employer]. Device Status Text - [id number]. Plate-Distal Volar Lt Short - Luke [id number] Implanted:Qty: 1 on 06/07/2017 Hardware e.g. pins/screws /rods [employer] Description:Device Manufactu rer - [employer]. Device Status Text - [id number]. Screw-Cortical 3.5mm X 15mm Long - Luke [id number] Implanted:Qty: 2 on 06/07/2017 Hardware e.g. pins/screws /rods [employer] Description:Device Manufactu rer - [employer]. Device Status Text - [id number]. Peg Threaded 2.5mm X 20mm Long - Luke [id number] Implanted:Qty: 1 on 06/07/2017 Hardware e.g. pins/screws /rods BioMet Description:Device Manufactu rer - [employer]. Device Status Text - [id number]. Peg Smooth 2.0mm X 22mm Long - Luke [id number] Implanted:Qty: 1 on 06/07/2017 Hardware e.g. pins/screws /rods BioMet Description:Device Manufactu rer - [employer]. Device Status Text - [id number]. Explanted Type Area Tank Crewmember Device Identifier Shelf Expiration Date Model / Serial / Lot Stnt Uret Inl [id number] - [id number] Implanted:Qty : 1 on 07/15/2019 by Terry Girard M.D. at [facility] Ureteral Stent C.[employer].Bard [id number] 05/01/2023 [id number] / / [id number] Procedures Procedure Name Priority Date/Time Associated Diagnosis Comments CT MAXILLOFACIAL WITH IV CONTRAST RAD - Semiurgent (Fast; most ED patients; some inpatients) 09/02/2023 3:55 AM CDT EXTI BASIC METABOLIC PANEL, S/P Routine 09/02/2023 3:21 AM CDT EXTI LIPID PANEL W REFLEX MEASURED LDL Routine 07/09/2023 10:31 AM CDT HEMOGLOBIN A1C, B Routine 03/15/2023 12:07 PM OIL SPOT W[employer]ER Diabetes Mellitus Type 2 (HCC) ALBUMIN, RANDOM, U Routine 03/15/2023 10:57 AM OIL SPOT W[employer]ER Diabetes Mellitus Type 2 Hyperglycemia (HCC) from Last 3 Months or Most Recently Relevant to Health Maintenance Results * CT Maxillofacial with IV Contrast [...] Findings of odontogenic infection as described. Jona Valdez M.D. IMG CT PROCEDURES * (ABNORMAL) Hemoglobin A1c (03/15/2023 12:07 PM OIL SPOT W[employer]ER) Hemoglobin A1c, B 7.4(H) 4.2 - 5.6 % 03/15/2023 12:36 PM OIL [employer] W[employer] Comment: Hemoglobin A1c values greater than or equal to 6.5 percent are diagnostic for diabetes mellitus. ??Diagnosis should be confirmed by repeat testing. ??In diabetic patients, HbA1c goals should be discussed with healthcare provider. Blood (Blood, Venous) 03/15/2023 12:07 PM OIL SPOT W[employer]ER 03/15/2023 12:22 PM OIL SPOT W[employer]ER Anuj Garcia M.D. LAB BLOOD ADD-ON [facility] [address] [place] [address], [place] [facility] in [place] [address] [place] [address] * (ABNORMAL) Albumin, Random, Urine (03/15/2023 10:57 AM OIL SPOT W[employer]ER) Microalbumin <12.0 mg/L 03/15/2023 1:54 PM OIL [employer] W[employer] [facility] Comment:If clinically indica brianda, contact the lab for additional testing. Creatinine 53 mg/dL 03/15/2023 1:54 PM [employer]IL [employer] W[employer] [facility] Albumin/Creatinine Ratio <23(H) <17 mg/g 03/15/2023 1:54 PM OIL SPOT W[employer] [facility] Comment: This ratio may not correspond with the reference range because one or both of the values used to calculate the ratio was above or below the quantification limits. Urine (Urine, Midstream) 03/15/2023 10:57 AM OIL SPOT W[employer]ER 03/15/2023 11:39 AM OIL SPOT W[employer]ER Silvia Robison M.D. LAB URINE ORDER [facility] [address] [place] [address], [facility] in [place] [address] [place] [address] from Last 3 Months or Most Recently Relevant to Health Maintenance Advance Directives For more information, please contact: [phone] * Full Code (Latest Code Status on File) Date Activated Date Inactivated Comments 07/15/2019 10:35 AM 07/16/2019 1:23 PM Question Answer Comments Full Code: Discussed Care Teams Radio Producer Relationship Specialty Start Date End Date Silvia Robison M.D. NPJacob: [id number] [address] [place] [phone] PCP - General Family Medicine 10/03/23
--- OUTSIDE RECORDS SUMMARY | 2023-10-25 20:02 | XMS_ITS | Encounter Summary ---
Author Organization [facility] Address [address] [place] [address] Care Team Providers Care Family Reunification Specialist Name Role Phone Silvia Robison M.D. Primary Care Provider Reason for Visit * Reason Comments Med Refill Encounter Details Date Type Department Care Team (Late st Contact Info) Description 10/09/2023 Refill Department of Family Medicine, [facility], in [place], [place] [address] [place] [phone] Silvia Robison M.D. [address] [place] [phone] Med Refill Social History Tobacco Use Types Packs/Day Years Used Date Smoking Tobacco: Former Cigarettes 0.3 37.1 0 09/21/1983 - 10/31/2020 Passive Smoke Exposure: Current Smokeless Tobacco: Never Quit: 01/12/2018 Comments:1 pack per week Alcohol Use Standard Drinks/Week Comments No 0 (1 standard drink = 0.6 oz pur e alcohol) [facility] Utilities Answer Date Recorded In the past 12 months has e electric, gas, oil, or water company threatened to shut off services in your [...] often do you attend chur ch or taoism services? Never 06/22/2022 Do you belong to any clubs o r organizations such as mormonism groups, unions, fraternal or athletic groups, or [...] Answer Date Recorded PHQ-2 Score 2 10/09/2023 [facility] [place] of Occupat ional Health - Occupational Stress [...] Date Recorded Dental: Regular Dentist No 06/23/19 23 Employment Answer Date Recorded Employment status Employed and actively working without restrictions 10/12/2023 Housing Stability Answer Date Recorded What is your living situation today? I have a [facility] place to live 10/12/2023 Education Answer Date Recorded What is the highest level of school you have completed or the highest degree you have received? 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 * Telephone Encounter - Trina Cummings L.P.N. - 10/10/2023 2:59 PM CDT Patient had sent a patient online service message 05/28/2023 stating he was not taking Lantus, but then sent another message after stating he would going to restart taking. * Telephone Encounter - Jessica Fischer - 10/09/2023 10:37 AM CDT Nurse review: Med Refill Team is unable to forward request to provider. Discrepancy: Verification Required. Per Epic, Patient reported Not taking the Med. Primary Provider: Silvia Robison M.D. Requested Prescriptions Pending Prescriptions Disp Refills insulin glargine (Lantus U-100 Insulin) 100 unit/mL injection 18 mL 3 Sig: Inject 20 mg daily subcutaneously. Increase 2 units every 3 days if your blood sugars are above 150. Max 30 units daily. documented in this encounter Plan of Treatment Upcoming Encounters Date Type Department Care Team (Late st Contact Info) Description 11/06/2023 12:20 PM CDT Appointment Department of Laboratory Medicine in [place], [place] [address] [phone] Silvia Robison M.D. [address] [phone] 11/06/2023 12:30 PM CDT Appointment Department of Laboratory Medicine in [place], [place] [address] [phone] Silvia Robison M.D. [address] [phone] 11/06/2023 1:00 PM CDT Comprehensive Visit Department of Family Medicine, [facility], in [place], [place] [address], [place] [phone] Silvia Robison M.D. [address], [place] [phone] documented as of this encounter Visit Diagnoses Diagnosis Diabetes Mellitus Type 2 Hyperglycemia (HCC) documented in this encounter Additional Health Concerns Assessment Noted Time PHQ-9 Depression Total Score: 15 024 9:47 AM CDT documented as of this encounter Care Teams Family Reunification Specialist Relationship Specialty Start Date End Date Silvia Robison M.D. [address], [place] [phone] PCP - General Family Medicine 10/03/23 documented as of this encounter
--- OUTSIDE RECORDS SUMMARY | 2023-10-25 20:02 | XMS_ITS ---
Author Organization [facility] Address [address] [place] [address] Care Team Providers Care Outreach Team Member Name Role Phone Unavailable Unavailable Unavailable Surgery Details Not on file Complications Check Surgery Details section. Procedure Estimated Blood Loss Check Surgery Details section. Procedure Findings Check Surgery Details section. Procedure Specimens Taken Check Surgery Details section.
--- OUTSIDE RECORDS SUMMARY | 2023-10-25 20:02 | XMS_ITS | Referral Summary ---
Author Organization [facility] Address [address] [place] [address] Care Team Providers Care Merchandise Execution Leader Name Role Phone Silvia Robison M.D. Primary Care Provider Source Comments Patient records contain information from all sites at [facility]. For routine questions regarding patient records, call [phone] during business hours, M-F 8:00 AM - 5:00 PM Central Time. Record requests for emergency care only can be directed to [phone] at any time.[facility] Encounters Date Type Department Care Team Description 10/09/2023 Refill Department of Family Medicine, [facility], in [place], [place] [address] [place] [phone] Silvia Robison M.D. Med Refill 09/02/2023 2:44 AM CDT - 09/02/2023 4:34 AM CDT Emergency [facility] [address] [place] [phone] Impacted Tooth (Primary Dx) Discharge Disposition: Home or Self Care from Last 3 Months Allergies Active Allergy Reactions Criticality Noted Date [...] mg total) by mouth daily. 30 tablet 3 Active chlorhexidine (PERIDEX) 0.12 % mouthwash [...] Trileptal and was diagnosed with bipolar in [place]. -many acute stressors such as needing to [...] Overview: Added automatically from request for surgery [id number] Pain Hand Left 09/24/2017 07/20/2020 Hypertension Essential [...] Joint Left 08/27/2019 Pain Wrist Left 08/27/2019 Immunizations Name Administration Dates Next Due HepA Adult 06/22/2022(Deferred: Patient cecile salguero) HepB Adult 05/12/2021 07/10/2021 HepB Adult (HEPLISAV-B) 07/20/2020,10/15/2019 PCV20 06/22/2022, 3(Deferred: Patient decision) PPD Test 01/06/2019 RZV (SHINGRIX) 06/22/2022(Deferred: Patient cecile salguero) SARS-COV-2 (COVID-19) - PFIZ ER (Discontinued)(12 years or older) 05/01/2021 SARS-COV-2 (COVID-19) - PFIZ ER BIVALENT TS(Discontinued)(12 YEARS OR OLDER) 06/22/2022(Deferred: Patient Refused) Tdap 10/15/2019 influenza vaccine quad (FLUZONE/FLUARIX) (6 months and older)(PF) 06/22/2022(Deferred: Patient decision) Social History Tobacco Use Types Packs/Day Years Used Date Smoking Tobacco: Former Cigarettes 0.3 37.1 0 09/21/1983 - 10/31/2020 Passive Smoke Exposure: Current Smokeless Tobacco: Never Quit: 01/12/2018 Comments:1 pack per week Alcohol Use Standard Drinks/Week Comments No 0 (1 standard drink = 0.6 oz pur e alcohol) [facility] Utilities Answer Date Recorded In the past 12 months has [employer], gas, oil, or water [employer] threatened to shut off services in your [...] 06/22/2022 How often do you attend chur or rastafarian services? Never 06/22/2022 Do you belong to any clubs o r organizations such as nondenominational groups, unions, fraternal or athletic groups, or [...] Answer Date Recorded PHQ-2 Score 2 10/09/2023 [facility] [place] of Occupat ional Health - Occupational Stress [...] your living situation today? I have a [facility] place to live 10/12/2023 Education Answer Date Recorded What is the highest level of school you have completed or the highest degree you have received? 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 Sexual Orientation Straight 07/10/2017 5: 27 PM CDT Job Start Date Occupation Industry Not on file Not on file Not on file Last Filed Vital Signs Vital Sign Reading Time Taken Comments Blood Pressure 118/81 06/21/2023 10:51 AM STOCK ANALYST Pulse 83 06/21/2023 10:51 AM STOCK ANALYST Temperature 36.1 ??C (96.9 ??F) 03/15/2023 11:14 AM C Respiratory Rate 18 06/16/2022 4:23 PM STOCK ANALYST Oxygen Saturation 97% 06/16/2022 6:15 PM STOCK ANALYST Inhaled Oxygen Concentration - - Weight 126 kg (277 lb 1.9 oz) 06/21/2023 10:51 A M STOCK ANALYST Height 196 cm (6' 5.17) 06/21/2023 10:51 AM STOCK ANALYST Body Mass Index 32.72 06/21/2023 10:51 AM STOCK ANALYST Plan of Treatment Upcoming Encounters Date Type Department Care Team (Late st Contact Info) Description 11/06/2023 12:20 PM CDT Appointment Department of Laboratory Medicine in [place], [place] [address] [phone] Silvia Robison M.D. [address] [phone] 11/06/2023 12:30 PM CDT Appointment Department of Laboratory Medicine in [place], [place] [address] [place] [phone] Silvia Robison M.D. [address] [phone] 11/06/2023 1:00 PM CDT Comprehensive Visit Department of Family Medicine, [facility], in [place], [place] [address] [place] [phone] Silvia Robison M.D. [address] [phone] Medical Devices Implanted Type Area Condenser Cleaner Device Identifier Shelf Expiration Date Model / Serial / Lot Chips Cancellous 5cc - [id number] Implanted:Qty: 1 on 06/07/2017 Bone or Tissue Other/Legacy - See Implant Description [employer] Description:Device Manufactu rer - [employer]. Body Location - Other. bone for packing defect. Device Status Text - [id number]. Peg Smooth 2.0mm X 18mm Long - Luke [id number] Implanted:Qty: 3 on 06/07/2017 Hardware e.g. pins/screws /rods BioMet Description:Device Manufactu rer - [employer] Device Status Text - [id number]. Peg Smooth 2.0mm X 20mm Long - Luke [id number] Implanted:Qty: 2 on 06/07/2017 Hardware e.g. pins/screws /rods [employer] Description:Device Manufactu rer - [employer]. Device Status Text - [id number]. Screw-Cortical 3.5mm X 14mm Long - Luke [id number] Implanted:Qty: 3 on 06/07/2017 Hardware e.g. pins/screws /rods BioMet Description:Device Manufactu rer - [employer]. Device Status Text - [id number]. Plate-Distal Volar Lt Short - Luke [id number] Implanted:Qty: 1 on 06/07/2017 Hardware e.g. pins/screws /rods [employer] Description:Device Manufactu rer - [employer]. Device Status Text - [id number]. Screw-Cortical 3.5mm X 15mm Long - Luke [id number] Implanted:Qty: 2 on 06/07/2017 Hardware e.g. pins/screws /rods [employer] Description:Device Manufactu rer - [employer]. Device Status Text - [id number]. Peg Threaded 2.5mm X 20mm Long - Luke [id number] Implanted:Qty: 1 on 06/07/2017 Hardware e.g. pins/screws /rods [employer] Description:Device Manufactu rer - [employer]. Device Status Text - [id number]. Peg Smooth 2.0mm X 22mm Long - Luke [id number] Implanted:Qty: 1 on 06/07/2017 Hardware e.g. pins/screws /rods [employer] Description:Device Manufactu rer - [employer]. Device Status Text - [id number]. Explanted Type Area Condenser Cleaner Device Identifier Shelf Expiration Date Model / Serial / Lot Stnt Uret Inl 7fx26 - [id number] Implanted:Qty : 1 on 07/15/2019 by Terry Girard M.D. at [facility] Ureteral Stent [employer].Bard [id number] 05/01/2023 [id number] / [id number] Procedures Procedure Name Priority Date/Time Associated Diagnosis Comments CT MAXILLOFACIAL WITH IV CONTRAST RAD - Semiurgent (Fast; most ED patients; some inpatients) 09/02/2023 3:55 AM CDT EXTI BASIC METABOLIC PANEL, S/P Routine 09/02/2023 3:21 AM CDT EXTI LIPID PANEL W REFLEX MEASURED LDL Routine 07/09/2023 10:31 AM CDT HEMOGLOBIN A1C, B Routine 03/15/2023 12:07 PM STOCK ANALYST Diabetes Mellitus Type 2 (HCC) ALBUMIN, RANDOM, U Routine 03/15/2023 10:57 AM STOCK ANALYST Diabetes Mellitus Type 2 Hyperglycemia (HCC) from [...] * (ABNORMAL) Hemoglobin A1c (03/15/2023 12:07 PM STOCK ANALYST) Hemoglobin A1c, B 7.4(H) 4.2 - 5.6 % 03/15/2023 12:36 PM STOCK ANALYST OW[facility] Comment: Hemoglobin A1c values greater than or equal to 6.5 percent are diagnostic for diabetes mellitus. ??Diagnosis should be confirmed by repeat testing. ??In diabetic patients, HbA1c goals should be discussed with healthcare provider. Blood (Blood, Venous) 03/15/2023 12:07 PM STOCK ANALYST 03/15/2023 12:22 PM STOCK ANALYST Anuj Garcia M.D. LAB BLOOD ADD-ON [facility] [address] [place] [id number], [facility] [place] [address] [place] [phone] * (ABNORMAL) Albumin, Random, Urine (03/15/2023 10:57 AM STOCK ANALYST) Microalbumin <12.0 mg/L 03/15/2023 1:54 PM STOCK ANALYST OW[facility] Comment:If clinically indica brianda, contact the lab for additional testing. Creatinine 53 mg/dL 03/15/2023 1:54 PM STOCK ANALYST [facility] Albumin/Creatinine Ratio <23(H) <17 mg/g 03/15/2023 1:54 PM STOCK ANALYST [facility] Comment: This ratio may not correspond with the reference range because one or both of the values used to calculate the ratio was above or below the quantification limits. Urine (Urine, Midstream) 03/15/2023 10:57 AM STOCK ANALYST 03/15/2023 11:39 AM STOCK ANALYST Silvia Robison M.D. LAB URINE ORDER [facility] [address] [place] [address], [place] [facility] in [place] [address] [place] [address] from Last 3 Months or Most Recently Relevant to Health Maintenance Advance Directives For more information, please contact: [phone] * Full Code (Latest Code Status on File) Date Activated Date Inactivated Comments 07/15/2019 10:35 AM 07/16/2019 1:23 PM Question Answer Comments Full Code: Discussed Care Teams Merchandise Execution Leader Relationship Specialty Start Date End Date Silvia Robison M.D. [address] [facility] [place] [phone] PCP - General Family Medicine 10/03/23
--- OUTSIDE RECORDS SUMMARY | 2023-10-25 20:03 | XMS_ITS | Clinical Summary ---
Author Organization [facility] Address [place], [place] [address] Care Team Providers Care Fruit Buyer Name Role Phone Silvia Robison MD Primary Care Provi maryuri Allergies Active Allergy Reactions Criticality Noted Date Comments Coconut Anaphylaxis High 01/05/2017 Fentanyl Hives Medium 01/05/2017 Morphine Nausea And Vomiting, Other - Describe In Comment Field Medium 01/05/2017 Nalbuphine Hives Medium 01/05/2017 Sulfa (Sulfonamide Antibiotics) Itching 01/05/2017 Sulfamethoxazole-Trimethop rim *Unknown Medium 12/27/2020 Medications Medication Sig Dispensed Refills Start Date End Date Status allopurinoL (ZYLOPRIM) 100 mg tablet Take 1 Tablet by mouth two times daily. 11/30/2020 Active amLODIPine (NORVASC) 10 mg tablet 06/05/2022 Active lisinopriL (PRINIVIL; ZESTRIL) 40 mg tablet 06/05/2022 Active labetaloL (TRANDATE) 200 mg tablet Take 1 Tablet by mouth two times daily. 04/10/2022 Active atorvastatin (LIPITOR) 20 mg tablet 06/05/2022 Active cloNIDine HCL (CATAPRES) 0.1 mg tablet Take 1 Tablet by mouth two times daily. 11/30/2020 Active metFORMIN (GLUCOPHAGE XR) 500 mg Extended-Release tablet Take 2 Tablets by mouth two times daily. 03/09/2022 Active insulin glargine, U-100, (LANTUS) 100 unit/mL injection Inject 20 units subcutaneous before bedtime. 01/03/2023 Active mometasone (NASONEX) (50 mcg each actuation) nasal spray Inhale 2 Sprays into affected nostril(s) once daily. 10/09/2022 Active empagliflozin (Jardiance) 25 mg tabletIndications: Type 2 diabetes mellitus without complication, with long-term current use of insulin (HC) Take 1 Tablet (25 mg) by mouth once daily. 90 Tablet 3 07/09/2023 Active gabapentin (NEURONTIN) 300 mg capsuleIndications :Median nerve neuropathy, unspecified laterality TAKE 1 CAPSULE BY MOUTH EVERY MORNING, 2 CAPSULES AT NOON, AND 3 CAPSULES AT BEDTIME 180 Capsule 5 07/09/2023 Active pantoprazole (PROTONIX) 40 mg delayed-release tabletIndications: Gastroesophageal reflux disease, unspecified whether esophagitis present Take 1 Tablet (40 mg) by mouth two times daily before meals. 180 Tablet 3 07/09/2023 Active meloxicam 15 mg tabletIndications: Muscle spasm of right leg Take 1 Tablet (15 mg) by mouth once daily. 30 Tablet 5 07/15/2023 Active oxyCODONE (ROXICODONE) 5 mg immediate release tabletIndications: Dental infection Take 1 Tablet (5 mg) by mouth every 4 hours if needed for Pain. 10 Tablet 09/02/2023 Active Active Problems Problem Noted Date Diagnosed Date Abnormal levels of other serum enzymes Overview: -noted on previous lab draws versus dating back to 2019 Last Assessment & Plan: -continue to monitor. -consider liver ultrasound to assess for nonalcoholic fatty liver disease -consider viral hepatitis panel Depressive disorder 05/17/2022 Overview: 22 April 2022: PHQ = 24 -patient tells me he has previously been on Paxil, lithium, Trileptal and was diagnosed with bipolar in [place]. -many acute stressors such as needing to find new housing, financial stress, and employment stress. Last Assessment & Plan: -increase Wellbutrin that was previously prescribed for smoking cessation from 150 mg daily to 300 mg daily. -PHQ findings were inconsistent with physical exam (MSE); continue to assess mood have follow-up appointments. -social work consult to help with housing. -Consider SSRI at future visits Hypertensive kidney disease, stage III Overview: 02/2021: Average blood pressure was elevated [...] were at goal today -Continue to monitor. Hyperlipidemia 08/26/2020 Overview: Goal LDL < 70. Has been prescribed Lipitor 20 mg daily. Chronic sinusitis 07/20/2020 Overview: -Currently on Fluticasone nasal Last Assessment & Plan: -Will obtain more history at next visit -Consider ENT referral/ CT sinus/maxillofacial Gout 10/15/2019 Overview: Allopurinol 100 mg twice [...] was September 2019 and it was 9.0) Allopurinol 100 mg twice daily 10/27/2020 Discussed [...] was September 2019 and it was 9.0) Nephrolithiasis 07/15/2019 Overview: Added automatically from request for surgery [id number] Added automatically from request for surgery [id number] Type 2 diabetes mellitus without complication Overview: Last A1C 7.5 03/2020 - metformin 1 g bid, glipizide 5 mg, ASA, lipitor 20 mg Next A1C due 07/2020 Currently on Metformin 1 g twice daily Jardiance 10 mg Holding glipizide March 2022. Previous medications: GLP1s (possibly Victoza and a few others, doesn't recall name; caused worsening nausea and GI upset) and Januvia (tolerated well but wasn't covered by insurance) Foot exam done 05/17 Labs ordered for 06/17 Instructed to bring log in appointment in june Erectile dysfunction 09/23/2017 Overview: Previously on Viagra and Cialis. Essential hypertension 09/23/2017 Overview: Referred the HTN clinic 12/2019 - taking lisinopril 40 mg, labetalol 200 mg bid, clonidine 0.1 mg bid, amlodipine 10 mg 06/2020 well controlled - encouraged to schedule with NEPH/HTN as having issues with ED Gastroesophageal reflux disease 09/23/2017 Overview: prilosec 20 mg daily Protonix 40 b.i.d. 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 Overview: Gabapentin 300 am, 600 pm, 900 HS Meloxicam 15 mg Gabapentin 300 am, 600 pm, 900 HS Meloxicam 15 mg Encounters Date Type Department Care Team Description 09/02/2023 2:47 AM CDT - 09/02/2023 4:34 AM CDT Emergency [address] [address] Jona Valdez MD Dental infection (Primary Dx) Discharge Disposition: Home Self Care 09/02/2023 Orders Only [address] [address] Jc Irene III, MD <No scans attached> 08/08/2023 Telephone [facility] [id number] [place] [address] Drake Cook MD Referral (DENIED CLAIM) from Last 3 Months Immunizations Name Administration Dates Next Due Hep B (Hepatitis B (Adult) Recombinant Adjuvante d) 07/20/2020,10/15/2019 Hepatitis B (Adult) 05/12/2021 Pneumococcal Conj 20-valent (Prevnar 20) 023 Tdap 10/15/2019 Tuberculin (PPD) 01/06/2019 Social History Tobacco Use Types Packs/Day Years Used Date Smoking Tobacco: Former Cigarettes Smokeless Tobacco: Former Tobacco Cessation:Counseling Given: Not Answered Alcohol Use Standard Drinks/Week Comments Not Currently 0 (1 standard drink = 0.6 oz pur e alcohol) PHQ-2 Answer Date Recorded PHQ-2 TOTAL SCORE 0 07/09/2023 Social Connections Answer Date Recorded Frequency of Communication with Friends and Fami ly 0 07/09/2023 Financial Resource Strain Answer Date R ecorded Difficulty of Paying Living Expenses 3 07/09/2023 Difficulty of Paying Living Expenses Not on file 07/09/2023 Food Insecurity Answer Date Recorded Worried About Running Out of Food in the Last Ye ar 1 07/09/2023 Transportation Needs Answer Date Record ed Lack of Transportation (Medical) 1 07/09/2023 Housing Stability Answer Date Recorded Unable to Pay for Housing in the Last Year 3 07/09/2023 Sex and Gender Information Value Date Recorded Sex Assigned at Male 07/10/2023 12:20 PM CDT Gender Identity Male 07/10/2023 12:20 PM CDT Sexual Orientation Straight 07/10/2023 12 :20 PM CDT Obstetrics History Last Filed Vital Signs Vital Sign Reading Time Taken Comments Blood Pressure 176/108 09/02/2023 2:51 AM CDT Pulse 74 09/02/2023 2:51 AM CDT Temperature 36.8 ??C (98.2 ??F) 09/02/2023 2:51 AM CD T Respiratory Rate 15 09/02/2023 2:51 AM CDT Oxygen Saturation 99% 09/02/2023 2:51 AM CDT Inhaled Oxygen Concentration - - Weight 126.9 kg (279 lb 11.2 oz) 09/02/2023 2:50 AM CDT Height 195.6 cm (6' 5) 09/02/2023 2:50 AM CDT Body Mass Index 33.17 09/02/2023 2:50 AM CDT Plan of Treatment Health Maintenance Due Date Last Done Comments HIV for age 15-65 10/14/1987 Hepatitis C screening for ag e 18-79 1990 Colonoscopy through age 75 2017 Zoster (shingles) series for age 50+ (1 of 2) 2022 COVID-19 vaccine series ( season) 2022 05/01/2021, 03/03/2021 Influenza for age 50-64 12/22/2023 BMI (ht and wt on same day) for age 18+ 07/08/2024 07/09/2023 Depression screening for age 12+ 07/08/2024 07/09/2023, 07/09/2023, 07/09/2023 Lipids for age 45-75 07/08/2028 07/09/2023, 06/22/2022 (Verified in Care Everywhere or Patient Record) Tetanus booster 10/14/2029 10/15/2019 Tdap Completed 10/15/2019 Hepatitis B series for Diabetes Completed 05/12/2021, 07/20/2020, 10/15/2019 Pneumococcal series for age 6-64 Completed 06/23/19 23 Procedures Procedure Name Priority Date/Time Associated Diagnosis Comments CT FACIAL BONES W STAT 09/02/2023 3:5 3 AM CDT CBC WITH AUTO DIFFERENTIAL STAT 09/02/2023 3:21 AM CDT BASIC METABOLIC PANEL STAT 09/02/2023 3:21 AM CDT CBC WITH AUTO DIFFERENTIAL STAT 09/02/2023 3:21 AM CDT LIPID PANEL W REFLEX MEASURED LDL Routine 07/09/2023 10:31 AM CDT Hyperlipidemia, unspecified hyperlipidemia type from Last 3 Months or Most Recently Relevant to Health Maintenance Results * CT FACIAL BONES W (09/02/2023 3:53 AM CDT) Anatomical Region Laterality Modality FACIAL BONES Computed Tomogra phy Jona Valdez MD CT * (ABNORMAL) CBC WITH AUTO DIFFERENTIAL (09/02/2023 3:21 AM CDT) WHITE BLOOD COUNT 6.9 4.5 - 11.0 thou/cu mm 09/02/2023 4:21 AM [facility] RED BLOOD COUNT 4.58 4.30 - 5.90 mil/cu mm 09/02/2023 4:21 AM [facility] HEMOGLOBIN 13.4(L) 13.5 - 17.5 g/dL 09/02/2023 4:21 AM [facility] HEMATOCRIT 40.3 37.0 - 53.0 % 09/02/2023 4: AM [facility] MCV 88 80 - 100 fL 09/02/2023 4:21 AM [facility] MCH 29.3 26.0 - 34.0 pg 09/02/2023 4:21 AM [facility] MCHC 33.3 32.0 - 36.0 g/dL 09/02/2023 4: AM [facility] RDW 14.2 11.5 - 15.5 % 09/02/2023 4: AM [facility] PLATELET COUNT 162 140 - 440 thou/cu mm 09/02/2023 4:21 AM [facility] MPV 12.0(H) 6.5 - 11.0 fL 09/02/2023 4: AM [facility] % NEUT 59.6 % 09/02/2023 4: AM [facility] % LYMPH 24.2 % 09/02/2023 4: AM [facility] % MONO 10.3 % 09/02/2023 4: AM [facility] % EOS 5.8 % 09/02/2023 4:21 AM [facility] % BASO 0.1 % 09/02/2023 4:21 AM [facility] ABSOLUTE NEUTROPHILS 4.1 1.7 - 7.0 thou/cu mm 09/02/2023 4:21 AM [facility] ABSOLUTE LYMPHOCYTES 1.7 0.9 - 2.9 thou/cu mm 09/02/2023 4: AM [facility] ABSOLUTE MONOCYTES 0.7 <0.9 thou/cu mm 09/02/2023 4:21 AM [facility] ABSOLUTE EOSINOPHILS 0.4 <0.5 thou/cu mm 09/02/2023 4:21 AM [facility] ABSOLUTE BASOPHILS 0.0 <0.3 thou/cu mm 09/02/2023 4:21 AM [facility] Blood BLOOD SPECIMEN / Unknown Venipuncture / Unknown 09/02/2023 3:21 AM CDT 09/02/2023 4:17 AM T Jona Valdez MD HEMATOLOGY [facility] [address] [address] * (ABNORMAL) BASIC METABOLIC PANEL (09/02/2023 3:21 AM T) SODIUM 136 136 - 145 mmol/L 09/02/2023 5:32 AM [facility] POTASSIUM 4.0 3.5 - 5.1 mmol/L 09/02/2023 5:32 AM [facility] CHLORIDE 101 98 - 107 mmol/L 09/02/2023 5:32 AM [facility] CO2,TOTAL 19(L) 22 - 29 mmol/L 09/02/2023 5:32 AM [facility] ANION GAP 16 5 - 18 09/02/2023 5:32 AM [facility] GLUCOSE 306(H) 70 - 99 mg/dL 09/02/2023 5:32 AM [facility] CALCIUM 9.0 8.6 - 10.0 mg/dL 09/02/2023 5:32 AM [facility] BUN 9 6 - 20 mg/dL 09/02/2023 5:32 AM [facility] CREATININE 0.82 0.70 - 1.20 mg/dL 09/02/2023 5:32 AM [facility] BUN/CREAT RATIO 11 10 - 20 5:32 AM [facility] eGFR >90 >90 mL/min/1.7 3m2 09/02/2023 5:32 AM [facility] Comment:As of 2021, eG FR is calculated by the CKD-EPI creatinine equation without race adjustment. ??eGFR can be influenced by muscle mass, exercise, and diet. ??The reported eGFR is an estimation only and is only applicable if the renal function is stable. Blood BLOOD SPECIMEN / Unknown Venipuncture / Unknown 09/02/2023 3:21 AM CDT 09/02/2023 4:17 AM CDT Jona Valdez MD CHEMISTRY [facility] [address] [address] * (ABNORMAL) LIPID PANEL W REFLEX MEASURED LDL (07/09/2023 10:31 AM CDT) CHOLESTEROL,TOTAL 132 100 - 199 mg/dL 07/09/2023 2:52 PM CDT [facility] Comment: Cholesterol, Total Reference Ranges Desirable <200 mg/dL Borderline 200-239 mg/dL High >=240 mg/dL TRIGLYCERIDES 225(H) <150 mg/dL 07/09/2023 2:52 PM CDT [facility] HDL CHOLESTEROL 35(L) >40 mg/dL 2:52 PM CDT [facility] NON-HDL CHOLESTEROL 97 <145 mg/dl 07/09/2023 2:52 PM CDT [facility] CHOL/HDL RATIO 3.77 <4.50 07/09/2023 2:52 PM CDT [facility] LDL CHOLESTEROL 52 <=130 mg/dL 07/09/2023 2:52 PM CDT [facility] VLDL CHOLESTEROL 45(H) <=30 mg/dL 07/09/2023 2:52 PM CDT [facility] PROVIDER ORDERED STATUS FASTING 07/09/2023 2:52 PM CDT [facility] Blood BLOOD SPECIMEN / Unknown Venipuncture / Unknown 07/09/2023 10:31 AM CDT 07/09/2023 10:32 AM CDT [facility] [address] [place] [address], from Last 3 Months or Most Recently Relevant to Health Maintenance Care Teams Fruit Buyer Relationship Specialty Start Date End Date Silvia Robison MD [address] [address] PCP - General Family Practice 09/02/23
[2023-10-25 20:06] VITALS: BP 131/83; PULSE 83; RESP 18; TEMP 35.9; O2SAT 96; BMI 31.7
--- NOTE | 2023-10-25 20:34 | ED.WOUNDLAC ---
HPI - Wound/Laceration General Chief Complaint: Laceration/Wound Stated Complaint: Laceration - thumb - mandolin Time Seen by Provider: 10/25/23 20:19 History of Present Illness HPI narrative: This 53-year-old male comes in with an avulsion injury of the distal portion of his right thumb. He was using a lip cutter that and is thumb slipped pass the guard and he has an avulsion of an area that is about a cm in diameter on the distal portion of his right thumb. He comes in because of persistent bleeding. He is not on any anticoagulants. His tetanus status is up-to-date. Related Data Home Medications ?Medication ?Instructions ?Recorded ?Confirmed allopurinol 100 mg tablet 100 mg PO BID 12/27/22 01/14/23 amlodipine 10 mg tablet 10 mg PO DAILY 12/27/22 01/14/23 atorvastatin 20 mg tablet 20 mg PO DAILY 12/27/22 01/14/23 bupropion HCl 150 mg 24 hr tablet, 150 mg PO QAM 12/27/22 01/14/23 extended release clonidine HCl 0.1 mg tablet 0.1 mg PO BID 12/27/22 01/14/23 empagliflozin 25 mg tablet 25 mg PO QAM 12/27/22 01/14/23 (Jardiance) gabapentin 300 mg capsule 300 mg PO TID 12/27/22 01/14/23 insulin glargine 100 unit/mL 18 unit subcut QPM 12/27/22 01/14/23 subcutaneous solution (Lantus U-100 Insulin) labetalol 200 mg tablet 200 mg PO BID 12/27/22 01/14/23 lisinopril 40 mg tablet 40 mg PO DAILY 12/27/22 01/14/23 meloxicam 15 mg tablet 15 mg PO DAILY 12/27/22 01/14/23 metformin 500 mg tablet,extended 1,000 mg PO BID 12/27/22 01/14/23 release 24 hr pantoprazole 40 mg tablet,delayed 40 mg PO Q12H 12/27/22 01/14/23 release Previous Rx's ?Medication ?Instructions ?Recorded furosemide 40 mg tablet (Lasix) 40 mg PO BID #14 tabs 01/03/23 nirmatrelvir 300 mg (150 mg See Rx Instructions PO .COMPLEX 01/14/23 x2)-ritonavir 100 mg tablet,dose #30 ea pack (Paxlovid) Allergies Allergy/AdvReac Type Severity Reaction Status Date / Time coconut Allergy Mild Hives Verified 10/25/23 20:04 morphine Allergy Mild Hives Verified 10/25/23 20:04 Sulfa (Sulfonamide Allergy Mild Hives Verified 10/25/23 20:04 Antibiotics) Review of Systems Status of ROS: Reports: 10 or more systems reviewed and unremarkable except as noted in History and below Narrative: Constitutional: No fevers, no weight gain or loss. Eyes: No discharge. No vision changes. HENT: No congestion, no sore throat, no ear pain. Cardiovascular: No chest pain, no palpitations. Respiratory: No shortness of breath, no wheezes, no cough. Gastrointestinal: No abdominal pain, no vomiting, no diarrhea. Genitourinary: No dysuria, no hematuria. Musculoskeletal: Normal range of motion. Skin: No rashes, no pruritis. Neurological: No dizziness, weakness, sensory change, speech change. Endo/Heme/Allergies: No bruising or bleeding. No polydipsia. Pysch: no suicidality, no anxiety, no insomnia. All other systems reviewed and are negative. [facility] Social History Smoking Status: Former smoker Second hand tobacco smoke exposure: No How often do you have a drink containing alcohol: never How often do you have six or more drinks on one occasion: Never AUDIT-C Alcohol total score: 0 Non-prescribed substance use: denies use Exam Narrative: Exam Narrative: Constitutional: Well-developed, well-nourished, no acute distress. HEENT: Normocephalic, atraumatic. Neck: Normal range of motion. Nontender. Supple. Heart: Intact distal pulses. Lungs: No chest discomfort. No wheezes, rhonchi, or rales. Abdomen: Nontender. Back: Normal range of motion. Extremities: Normal range of motion. Avulsion injury of the skin of the distal portion of his right thumb. Skin: Intact. No rash. Warm. No erythema or pallor. Neurologic: No altered sensation. No weakness. Alert and oriented. Psychiatric: No suicidality. No anxiety or depression. No insomnia. Nursing notes and vitals signs are reviewed. Const: Vital Signs, click to edit/add: Vital Signs - 24 hr 10/25/23 20:06 Temperature 96.7 F L Pulse Rate [Pulse Oximeter] 83 Respiratory Rate 18 Blood Pressure [Le ft Upper Arm] 131/83 Pulse Oximetry 96 Oxygen Delivery Me thod Room Air Course Vital Signs Vital signs: Initial Vital Signs Temperature 96.7 F L 10/25/23 20:06 Temperature Source Temporal Artery Scan 10/25/23 20:06 Pulse Rate 83 10/25/23 20:06 Pulse Rhythm Regular 10/25/23 20:06 Respiratory Rate 18 10/25/23 20:06 Blood Pressure 131/83 10/25/23 20:06 Blood Pressure Mean 99 10/25/23 20:06 Blood Pressure Position Supine 10/25/23 20:06 Pulse Oximetry 96 10/25/23 20:06 Oxygen Delivery Method Room Air 10/25/23 20:06 Vital Signs Temperature 96.7 F L 10/25/23 20:06 Pulse Rate 83 10/25/23 20:06 Respiratory Rate 18 10/25/23 20:06 Blood Pressure 131/83 10/25/23 20:06 Pulse Oximetry 96 10/25/23 20:06 Oxygen Delivery Method Room Air 10/25/23 20:06 Temperature 96.7 F L 10/25/23 20:06 Pulse Rate 83 10/25/23 20:06 Respiratory Rate 18 10/25/23 20:06 Blood Pressure 131/83 10/25/23 20:06 Pulse Oximetry 96 10/25/23 20:06 Oxygen Delivery Method Room Air 10/25/23 20:06 MDM - Wound/Laceration MDM Narrative Medical decision making narrative: This patient has a avulsion injury of his right thumb with persistent bleeding. I did use a ring exsanguinater to stop bleeding. I recommended injection with lidocaine and epinephrine along with silver nitrate followed by Dermabond. The patient preferred to just have Dermabond applied. This was done with excellent results. A pressure bandage was applied and the ring exsanguinater was removed. Instructions regarding wound care were given. Discharge Plan Discharge Clinical Impression: Laceration Patient Disposition: Home, Self-Care Condition: Improved Additional Instructions: Keep wound clean and dry. Keep covered with the bandage that applies some pressure for a day or 2. Follow up with MD or return if worsening. Prescriptions: No Action clonidine HCl 0.1 mg tablet 0.1 mg PO BID atorvastatin 20 mg tablet 20 mg PO DAILY labetalol 200 mg tablet 200 mg PO BID insulin glargine [Lantus U-100 Insulin] 100 unit/mL solution 18 unit subcut QPM meloxicam 15 mg tablet 15 mg PO DAILY allopurinol 100 mg tablet 100 mg PO BID amlodipine 10 mg tablet 10 mg PO DAILY pantoprazole 40 mg tablet,delayed release (DR/EC) 40 mg PO Q12H gabapentin 300 mg capsule 300 mg PO TID Rx Instructions: TAKE 1 CAPSULE BY MOUTH IN THE MORNING, 2 CAPSULES IN THE AFTERNOON, AND 3 CAPSULES AT BEDTIME lisinopril 40 mg tablet 40 mg PO DAILY metformin 500 mg tablet extended release 24 hr 1,000 mg PO BID bupropion HCl 150 mg tablet extended release 24 hr 150 mg PO QAM Jardiance 25 mg tablet 25 mg PO QAM furosemide [Lasix] 40 mg tablet 40 mg PO BID Qty: 14 0RF Paxlovid 300 mg (150 mg x 2)-100 mg tablets,dose pack See Rx Instructions .ROUTE .COMPLEX Qty: 30 0RF Rx Instructions: take TWO 150 mg tablets of nirmatrelvir with ONE 100 mg tablet of ritonavir twice daily for 5 days, patient should stop his atorvastatin and amlodipine, he may restart these both 3 days after he finishes the prescription. Follow Up/Referrals: Provider,Not a Local [Primary Care Provider] - Stand Alone [facility]: [facility] Inst[facility]
--- OUTSIDE RECORDS SUMMARY | 2023-10-25 20:43 | XMS_ITS | Referral Summary ---
Author Organization [facility] Address [address] [place] [address] Care Team Providers Care Rf Test Technician Name Role Phone Silvia Robison M.D. Primary Care Provider Source Comments Patient records contain information from all sites at [facility]. For routine questions regarding patient records, call [phone] during business hours, M-F 8:00 AM - 5:00 PM Central Time. Record requests for emergency care only can be directed to [phone] at any time.[facility] Encounters Date Type Department Care Team Description 10/09/2023 Refill Department of Family Medicine, [facility], in [place], [place] [address] [place] [phone] Silvia Robison M.D. Med Refill 09/02/2023 2:44 AM CDT - 09/02/2023 4:34 AM CDT Emergency [facility] [address] [place] [phone] Impacted Tooth (Primary Dx) Discharge Disposition: Home [...] Overview: Added automatically from request for surgery [id number] Pain Hand Left 09/24/2017 07/20/2020 Hypertension Essential [...] drink = 0.6 oz pur e alcohol) [facility] Utilities Answer Date Recorded In the past 12 months has [employer], gas, oil, or water [employer] threatened to shut off services in your [...] How often do you attend chur or mormonism services? Never 06/22/2022 Do you belong to any clubs o r organizations such as cheondoism groups, unions, fraternal or athletic groups, or [...] Answer Date Recorded PHQ-2 Score 2 10/09/2023 [facility] [place] of Occupat ional Health - Occupational Stress [...] your living situation today? I have a [facility] place to live 10/12/2023 Education Answer Date Recorded What is the highest level of school you have completed or the highest degree you have received? 12th grade 05/19/2019 Sex and Gender Information Value Date Recorded Sex Assigned at Male 08/16/2019 8:50 PM CDT Gender Identity Male 05/21/2020 12:19 PM UNIVERSAL GRINDER OPERATOR Sexual Orientation Straight 07/10/2017 5: 27 PM CDT Job Start Date Occupation Industry Not on file Not on file Not on file Last Filed Vital Signs Vital Sign Reading Time Taken Comments Blood Pressure 118/81 06/21/2023 10:51 AM UNIVERSAL GRINDER OPERATOR Pulse 83 06/21/2023 10:51 AM UNIVERSAL GRINDER OPERATOR Temperature 36.1 ??C (96.9 ??F) 03/15/2023 11:14 AM C Respiratory Rate 18 06/16/2022 4:23 PM UNIVERSAL GRINDER OPERATOR Oxygen Saturation 97% 06/16/2022 6:15 PM UNIVERSAL GRINDER OPERATOR Inhaled Oxygen Concentration - - Weight 126 kg (277 lb 1.9 oz) 06/21/2023 10:51 A M UNIVERSAL GRINDER OPERATOR Height 196 cm (6' 5.17) 06/21/2023 10:51 AM UNIVERSAL GRINDER OPERATOR Body Mass Index 32.72 06/21/2023 10:51 AM UNIVERSAL GRINDER OPERATOR Plan of Treatment Upcoming Encounters Date Type Department Care Team (Late st Contact Info) Description 11/06/2023 12:20 PM CDT Appointment Department of Laboratory Medicine in [place], [place] [address] [phone] Silvia Robison M.D. [address] [address] 11/06/2023 12:30 PM CDT Appointment Department of Laboratory Medicine in [place], [place] [address] [place] [phone] Silvia Robison M.D. [address] [phone] 11/06/2023 1:00 PM CDT Comprehensive Visit Department of Family Medicine, [facility], in [place], [place] [address] [place] [phone] Silvia Robison M.D. [address] [phone] Medical Devices Implanted Type Area Yeast Distiller Device Identifier Shelf Expiration Date Model / Serial / Lot Chips Cancellous 5cc - Luke [id number] Implanted:Qty: 1 on 06/07/2017 Bone or Tissue Other/Legacy - See Implant Description [employer] Description:Device Manufactu rer - [employer]. Body Location - Other. bone for packing defect. Device Status Text - [id number]. Peg Smooth 2.0mm X 18mm Long - Luke [id number] Implanted:Qty: 3 on 06/07/2017 Hardware e.g. pins/screws /rods BioMet Description:Device Manufactu rer - [employer]. Device Status Text - [id number]. Peg Smooth 2.0mm X 20mm Long - Luke [id number] Implanted:Qty: 2 on 06/07/2017 Hardware e.g. pins/screws /rods BioMet Description:Device Manufactu rer - [employer]. Device Status Text - [id number]. Screw-Cortical 3.5mm X 14mm Long - Luke [id number] Implanted:Qty: 3 on 06/07/2017 Hardware e.g. pins/screws /rods BioMet Description:Device Manufactu rer - [employer]. Device Status Text - [id number]. Plate-Distal Volar Lt Short - Luke [id number] Implanted:Qty: 1 on 06/07/2017 Hardware e.g. pins/screws /rods BioMet Description:Device Manufactu rer - [employer]. Device Status Text - [id number]. Screw-Cortical 3.5mm X 15mm Long - Luke [id number] Implanted:Qty: 2 on 06/07/2017 Hardware e.g. pins/screws /rods BioMet Description:Device Manufactu rer - [employer]. Device Status Text - [id number]. Peg Threaded 2.5mm X 20mm Long - Luke [id number] Implanted:Qty: 1 on 06/07/2017 Hardware e.g. pins/screws /rods BioMet Description:Device Manufactu rer - [employer]. Device Status Text - [id number]. Peg Smooth 2.0mm X 22mm Long - Luke [id number] Implanted:Qty: 1 on 06/07/2017 Hardware e.g. pins/screws /rods BioMet Description:Device Manufactu rer - [employer]. Device Status Text - HARDWARE-60175. Explanted Type Area Yeast Distiller Device Identifier Shelf Expiration Date Model / Serial / Lot Stnt Uret Inl 7fx26 - [id number] Implanted:Qty : 1 on 07/15/2019 by Terry Girard M.D. at [facility] Ureteral Stent C.R.Bard [id number] 05/01/2023 [id number] / / [id number] Procedures Procedure Name Priority Date/Time Associated Diagnosis Comments CT MAXILLOFACIAL WITH IV CONTRAST RAD - Semiurgent (Fast; most ED patients; some inpatients) 09/02/2023 3:55 AM CDT EXTI BASIC METABOLIC PANEL, S/P Routine 09/02/2023 3:21 AM CDT EXTI LIPID PANEL W REFLEX MEASURED LDL Routine 07/09/2023 10:31 AM CDT HEMOGLOBIN A1C, B Routine 03/15/2023 12:07 PM UNIVERSAL GRINDER OPERATOR Diabetes Mellitus Type 2 (HCC) ALBUMIN, RANDOM, U Routine 03/15/2023 10:57 AM UNIVERSAL GRINDER OPERATOR Diabetes Mellitus Type 2 Hyperglycemia (HCC) from [...] * (ABNORMAL) Hemoglobin A1c (03/15/2023 12:07 PM UNIVERSAL GRINDER OPERATOR) Hemoglobin A1c, B 7.4(H) 4.2 - 5.6 % 03/15/2023 12:36 PM UNIVERSAL GRINDER OPERATOR OWAT Comment: Hemoglobin A1c values greater than or equal to 6.5 percent are diagnostic for diabetes mellitus. ??Diagnosis should be confirmed by repeat testing. ??In diabetic patients, HbA1c goals should be discussed with healthcare provider. Blood (Blood, Venous) 03/15/2023 12:07 PM UNIVERSAL GRINDER OPERATOR 03/15/2023 12:22 PM UNIVERSAL GRINDER OPERATOR Anuj Garcia M.D. LAB BLOOD ADD-ON [facility] [address] [place] [address], [facility] OWAT [facility] in [place] [address] [place] [address] * (ABNORMAL) Albumin, Random, Urine (03/15/2023 10:57 AM UNIVERSAL GRINDER OPERATOR) Microalbumin <12.0 mg/L 03/15/2023 1:54 PM UNIVERSAL GRINDER OPERATOR OWAT Comment:If clinically indica brianda, contact the lab for additional testing. Creatinine 53 mg/dL 03/15/2023 1:54 PM UNIVERSAL GRINDER OPERATOR OWAT Albumin/Creatinine Ratio <23(H) <17 mg/g 03/15/2023 1:54 PM UNIVERSAL GRINDER OPERATOR OWAT Comment: This ratio may not correspond with the reference range because one or both of the values used to calculate the ratio was above or below the quantification limits. Urine (Urine, Midstream) 03/15/2023 10:57 AM UNIVERSAL GRINDER OPERATOR 03/15/2023 11:39 AM UNIVERSAL GRINDER OPERATOR Silvia Robison M.D. LAB URINE ORDER GENIE [facility] [address] [place] [address], [place] OWAT [facility] in [place] [address] [place] [address] from Last 3 Months or Most Recently Relevant to Health Maintenance Advance Directives For more information, please contact: [phone] * Full Code (Latest Code Status on File) Date Activated Date Inactivated Comments 07/15/2019 10:35 AM 07/16/2019 1:23 PM Question Answer Comments Full Code: Discussed Care Teams Rf Test Technician Relationship Specialty Start Date End Date Silvia Robison M.D. [address] [facility] [place] [phone] PCP - General Family Medicine 10/03/23
--- OUTSIDE RECORDS SUMMARY | 2023-10-25 20:43 | XMS_ITS ---
Author Organization [facility] Address [address] [place] [address] Care Team Providers Care Sap Portal Architect Name Role Phone Unavailable Unavailable Unavailable Surgery Details Not on file Complications Check Surgery Details section. Procedure Estimated Blood Loss Check Surgery Details section. Procedure Findings Check Surgery Details section. Procedure Specimens Taken Check Surgery Details section.
--- OUTSIDE RECORDS SUMMARY | 2023-10-25 20:43 | XMS_ITS | Clinical Summary ---
Author Organization [facility] Address [address] [place] [address] Care Team Providers Care Dubbing Machine Operator Name Role Phone Silvia Robison M.D. Primary Care Provider Source Comments Patient records contain information from all sites at [facility]. For routine questions regarding patient records, call [phone] during business hours, M-F 8:00 AM - 5:00 PM Central Time. Record requests for emergency care only can be directed to [phone] at any time.[facility] Allergies Active Allergy Reactions Criticality Noted Date [...] Trileptal and was diagnosed with bipolar in [place]. -many acute stressors such as needing to [...] Overview: Added automatically from request for surgery [id number] Pain Hand Left 09/24/2017 07/20/2020 Hypertension Essential [...] Description 10/09/2023 Refill Department of Family Medicine, [facility], in [place], [place] [address] [place] [phone] Silvia Robison M.D. Med Refill 09/02/2023 2:44 AM CDT - 09/02/2023 4:34 AM CDT Emergency [facility] [address] [place] [phone] Impacted Tooth (Primary Dx) Discharge Disposition: Home [...] Maternal Grandfather Tashi Olson Hypertension Maternal Grandfather Lancaster Lee Stroke Maternal Grandfather Tashi Hitesh Breast [...] drink = 0.6 oz pur e alcohol) [facility] Utilities Answer Date Recorded In the past 12 months has e electric, gas, oil, or water [employer] threatened to shut off services in your [...] often do you attend chur ch or mandaen services? Never 06/22/2022 Do you belong to any clubs o r organizations such as congregational groups, unions, fraternal or athletic groups, or [...] Answer Date Recorded PHQ-2 Score 2 10/09/2023 [facility] of Occupat ional Health - [...] CDT Gender Identity Male 05/21/2020 12:19 PM ALEMITE OPERATOR Sexual Orientation Straight 07/10/2017 5: 27 PM CDT Job Start Date Occupation Industry Not on file Not on file Not on file Last Filed Vital Signs Vital Sign Reading Time Taken Comments Blood Pressure 118/81 06/21/2023 10:51 AM ALEMITE OPERATOR Pulse 83 06/21/2023 10:51 AM ALEMITE OPERATOR Temperature 36.1 ??C (96.9 ??F) 03/15/2023 11:[address] Respiratory Rate 18 06/16/2022 4:23 PM ALEMITE OPERATOR Oxygen Saturation 97% 06/16/2022 6:15 PM ALEMITE OPERATOR Inhaled Oxygen Concentration - - Weight 126 kg (277 lb 1.9 oz) 06/21/2023 10:51 A M ALEMITE OPERATOR Height 196 cm (6' 5.17) 06/21/2023 10:51 AM ALEMITE OPERATOR Body Mass Index 32.72 06/21/2023 10:51 AM ALEMITE OPERATOR Plan of Treatment Upcoming Encounters Date Type Department Care Team (Late st Contact Info) Description 11/06/2023 12:20 PM CDT Appointment Department of Laboratory Medicine in [place], [place] [address] [place] [phone] Silvia Robison M.D. [address] [place] [phone] 11/06/2023 12:30 PM CDT Appointment Department of Laboratory Medicine in [place], [place] [address] [phone] Silvia Robison M.D. [address], [place] [phone] 11/06/2023 1:00 PM CDT Comprehensive Visit Department of Family Medicine, [facility], in [place], [place] [address] [place] [address] Silvia Robison M.D. [address] [place] [address] Health Maintenance Due Date Last [...] Completed 023 Medical Devices Implanted Type Area Architect In Training Device Identifier Shelf Expiration Date Model / Serial / Lot Chips Cancellous 5cc - Luke [id number] Implanted:Qty: 1 on 06/07/2017 Bone or Tissue Other/Legacy - See Implant Description Sp[employer] Description:Device Manufactu rer - [employer]. Body Location - Other. bone for packing defect. Device Status Text - [facility] [id number]. Peg Smooth 2.0mm X 18mm Long - Luke [id number] Implanted:Qty: 3 on 06/07/2017 Hardware e.g. pins/screws /rods BioMet Description:Device Manufactu rer - [employer]. Device Status Text - HARDWARE-78156. Peg Smooth 2.0mm X 20mm Long - Luke [id number] Implanted:Qty: 2 on 06/07/2017 Hardware e.g. pins/screws /rods BioMet Description:Device Manufactu rer - [employer]. Device Status Text - HARDWARE-75774. Screw-Cortical 3.5mm X 14mm Long - Luke [id number] Implanted:Qty: 3 on 06/07/2017 Hardware e.g. pins/screws /rods BioMet Description:Device Manufactu rer - [employer]. Device Status Text - HARDWARE-72203. Plate-Distal Volar Lt Short - Luke [id number] Implanted:Qty: 1 on 06/07/2017 Hardware e.g. pins/screws /rods BioMet Description:Device Manufactu rer - [employer]. Device Status Text - HARDWARE-93324. Screw-Cortical 3.5mm X 15mm Long - Luke [id number] Implanted:Qty: 2 on 06/07/2017 Hardware e.g. pins/screws /rods Bio[employer] Description:Device Manufactu rer - [employer]. Device Status Text - HARDWARE-24663. Peg Threaded 2.5mm X 20mm Long - Luke [id number] Implanted:Qty: 1 on 06/07/2017 Hardware e.g. pins/screws /rods BioMet Description:Device Manufactu rer - [employer]. Device Status Text - HARDWARE-74164. Peg Smooth 2.0mm X 22mm Long - Luke [id number] Implanted:Qty: 1 on 06/07/2017 Hardware e.g. pins/screws /rods BioMet Description:Device Manufactu rer - [employer]. Device Status Text - HARDWARE-32439. Explanted Type Area Architect In Training Device Identifier Shelf Expiration Date Model / Serial / Lot Stnt Uret Inl 7fx26 - [id number] Implanted:Qty : 1 on 07/15/2019 by Terry Girard M.D. at [facility] Ureteral Stent C.R.Bard [id number] 05/01/2023 [id number] / / [id number] Procedures Procedure Name Priority Date/Time Associated Diagnosis Comments CT MAXILLOFACIAL WITH IV CONTRAST RAD - Semiurgent (Fast; most ED patients; some inpatients) 09/02/2023 3:55 AM CDT EXTI BASIC METABOLIC PANEL, S/P Routine 09/02/2023 3:21 AM CDT EXTI LIPID PANEL W REFLEX MEASURED LDL Routine 07/09/2023 10:31 AM CDT HEMOGLOBIN A1C, B Routine 03/15/2023 12:07 PM ALEMITE OPERATOR Diabetes Mellitus Type 2 (HCC) ALBUMIN, RANDOM, U Routine 03/15/2023 10:57 AM ALEMITE OPERATOR Diabetes Mellitus Type 2 Hyperglycemia (HCC) [...] * (ABNORMAL) Hemoglobin A1c (03/15/2023 12:07 PM ALEMITE OPERATOR) Hemoglobin A1c, B 7.4(H) 4.2 - 5.6 % 03/15/2023 12:36 PM ALEMITE OPERATOR OWAT Comment: Hemoglobin A1c values greater than or equal to 6.5 percent are diagnostic for diabetes mellitus. ??Diagnosis should be confirmed by repeat testing. ??In diabetic patients, HbA1c goals should be discussed with healthcare provider. Blood (Blood, Venous) 03/15/2023 12:07 PM ALEMITE OPERATOR 03/15/2023 12:22 PM ALEMITE OPERATOR Anuj Garcia M.D. LAB BLOOD ADD-ON [facility] [address] [place] [address], [place] OW[place] [facility] [place] [address] [place] [address] * (ABNORMAL) Albumin, Random, Urine (03/15/2023 10:57 AM ALEMITE OPERATOR) Microalbumin <12.0 mg/L 03/15/2023 1:54 PM ALEMITE OPERATOR OWAT Comment:If clinically indica brianda, contact the lab for additional testing. Creatinine 53 mg/dL 03/15/2023 1:54 PM ALEMITE OPERATOR OWAT Albumin/Creatinine Ratio <23(H) <17 mg/g 03/15/2023 1:54 PM ALEMITE OPERATOR OWAT Comment: This ratio may not correspond with the reference range because one or both of the values used to calculate the ratio was above or below the quantification limits. Urine (Urine, Midstream) 03/15/2023 10:57 AM ALEMITE OPERATOR 03/15/2023 11:39 AM ALEMITE OPERATOR Silvia Robison M.D. LAB URINE ORDER GENIE [facility] [address] [place] [address], [facility] OWAT [facility] [place] [address] [place] [address] from Last 3 Months or Most Recently Relevant to Health Maintenance Advance Directives For more information, please contact: [phone] * Full Code (Latest Code Status on File) Date Activated Date Inactivated Comments 07/15/2019 10:35 AM 07/16/2019 1:23 PM Question Answer Comments Full Code: Discussed Care Teams Dubbing Machine Operator Relationship Specialty Start Date End Date Silvia Robison M.D. NPJacob: [id number] [address] [place] [phone] PCP - General Family Medicine 10/03/23
--- OUTSIDE RECORDS SUMMARY | 2023-10-25 20:44 | XMS_ITS | Clinical Summary ---
Author Organization [facility] Address [place], [place] [address] Care Team Providers Care Ad Operations Coordinator Name Role Phone Silvia Robison MD Primary [...] Trileptal and was diagnosed with bipolar in [place]. -many acute stressors such as needing to [...] Overview: Added automatically from request for surgery [id number] Added automatically from request for surgery [id number] Type 2 diabetes mellitus without complication Overview: [...] CDT - 09/02/2023 4:34 AM CDT Emergency [address] [address] Jona Valdez MD Dental infection (Primary Dx) Discharge Disposition: Home Self Care 09/02/2023 Orders Only [address] [address] Jc Irene III, MD <No scans attached> 08/08/2023 Telephone [facility] [address] [place] [address] Drake Cook MD Referral (DENIED [...] - 11.0 thou/cu mm 09/02/2023 4:21 AM [facility] RED BLOOD COUNT 4.58 4.30 - 5.90 mil/cu mm 09/02/2023 4:21 AM [facility] HEMOGLOBIN 13.4(L) 13.5 - 17.5 g/dL 09/02/2023 4:21 AM [facility] HEMATOCRIT 40.3 37.0 - 53.0 % 09/02/2023 4: AM [facility] MCV 88 80 - 100 fL 09/02/2023 4:21 AM [facility] MCH 29.3 26.0 - 34.0 pg 09/02/2023 4:21 AM [facility] MCHC 33.3 32.0 - 36.0 g/dL 09/02/2023 4: AM [facility] RDW 14.2 11.5 - 15.5 % 09/02/2023 4: AM [facility] PLATELET COUNT 162 140 - 440 thou/cu mm 09/02/2023 4:21 AM [facility] MPV 12.0(H) 6.5 - 11.0 fL 09/02/2023 4: AM [facility] % NEUT 59.6 % 09/02/2023 4: AM [facility] % LYMPH 24.2 % 09/02/2023 4: AM [facility] % MONO 10.3 % 09/02/2023 4: AM [facility] % EOS 5.8 % 09/02/2023 4:21 AM [facility] % BASO 0.1 % 09/02/2023 4:21 AM [facility] ABSOLUTE NEUTROPHILS 4.1 1.7 - 7.0 thou/cu mm 09/02/2023 4:21 AM [facility] ABSOLUTE LYMPHOCYTES 1.7 0.9 - 2.9 thou/cu mm 09/02/2023 4: AM [facility] ABSOLUTE MONOCYTES 0.7 <0.9 thou/cu mm 09/02/2023 4:21 AM [facility] ABSOLUTE EOSINOPHILS 0.4 <0.5 thou/cu mm 09/02/2023 4:21 AM [facility] ABSOLUTE BASOPHILS 0.0 <0.3 thou/cu mm 09/02/2023 4:21 AM [facility] Blood BLOOD SPECIMEN / Unknown Venipuncture / Unknown 09/02/2023 3:21 AM CDT 09/02/2023 4:17 AM T Jona Valdez MD HEMATOLOGY [facility] [address] [phone] * (ABNORMAL) BASIC METABOLIC PANEL (09/02/2023 3:21 AM T) SODIUM 136 136 - 145 mmol/L 09/02/2023 5:32 AM [facility] POTASSIUM 4.0 3.5 - 5.1 mmol/L 09/02/2023 5:32 AM [facility] CHLORIDE 101 98 - 107 mmol/L 09/02/2023 5:32 AM [facility] CO2,TOTAL 19(L) 22 - 29 mmol/L 09/02/2023 5:32 AM [facility] ANION GAP 16 5 - 18 09/02/2023 5:32 AM [facility] GLUCOSE 306(H) 70 - 99 mg/dL 09/02/2023 5:32 AM [facility] CALCIUM 9.0 8.6 - 10.0 mg/dL 09/02/2023 5:32 AM [facility] BUN 9 6 - 20 mg/dL 09/02/2023 5:32 AM [facility] CREATININE 0.82 0.70 - 1.20 mg/dL 09/02/2023 5:32 AM [facility] BUN/CREAT RATIO 11 10 - 20 5:32 AM [facility] eGFR >90 >90 mL/min/1.7 3m2 09/02/2023 5:32 AM [facility] Comment:As of 2021, eG FR is calculated by the CKD-EPI creatinine equation without race adjustment. ??eGFR can be influenced by muscle mass, exercise, and diet. ??The reported eGFR is an estimation only and is only applicable if the renal function is stable. Blood BLOOD SPECIMEN / Unknown Venipuncture / Unknown 09/02/2023 3:21 AM CDT 09/02/2023 4:17 AM CDT Jona Valdez MD CHEMISTRY [facility] [address] [phone] * (ABNORMAL) LIPID PANEL W REFLEX MEASURED LDL (07/09/2023 10:31 AM CDT) CHOLESTEROL,TOTAL 132 100 - 199 mg/dL 07/09/2023 2:52 PM CDT [facility] Comment: Cholesterol, Total Reference Ranges Desirable <200 mg/dL Borderline 200-239 mg/dL High >=240 mg/dL TRIGLYCERIDES 225(H) <150 mg/dL 07/09/2023 2:52 PM CDT [facility] HDL CHOLESTEROL 35(L) >40 mg/dL 2:52 PM CDT [facility] NON-HDL CHOLESTEROL 97 <145 mg/dl 07/09/2023 2:52 PM CDT [facility] CHOL/HDL RATIO 3.77 <4.50 07/09/2023 2:52 PM CDT [facility] LDL CHOLESTEROL 52 <=130 mg/dL 07/09/2023 2:52 PM CDT [facility] VLDL CHOLESTEROL 45(H) <=30 mg/dL 07/09/2023 2:52 PM CDT [facility] PROVIDER ORDERED STATUS FASTING 07/09/2023 2:52 PM CDT [facility] Blood BLOOD SPECIMEN / Unknown Venipuncture / Unknown 07/09/2023 10:31 AM CDT 07/09/2023 10:32 AM CDT [facility] [address] [place] [address], from Last 3 Months or Most Recently Relevant to Health Maintenance Care Teams Ad Operations Coordinator Relationship Specialty Start Date End Date Silvia Robison MD [address] [address] PCP - General Family Practice 09/02/23
--- OUTSIDE RECORDS SUMMARY | 2023-10-25 20:44 | XMS_ITS | Encounter Summary ---
Author Organization [facility] Address [address] [place] [address] Care Team Providers Care Cook Specialty Foreign Food Name Role Phone Silvia Robison M.D. Primary Care Provider Reason for Visit * Reason Comments Dental Pain Encounter Details Date Type Department Care Team (Late st Contact Info) Description 09/02/2023 2:44 AM CDT - 09/02/2023 4:34 AM CDT Emergency [facility] [address] [place] [phone] Impacted Tooth (Primary Dx) Discharge Disposition: Home [...] often do you attend chur ch or jehovah's witness services? Never 06/22/2022 Do you belong to any clubs o r organizations such as mosque groups, unions, fraternal or athletic groups, or [...] Answer Date Recorded PHQ-2 Score 1 03/14/2023 [facility] of Occupat ional Health - Occupational Stress [...] place to sleep or slept in a alf (including now)? No 06/22/2022 Depression Answer Date [...] CDT Gender Identity Male 05/21/2020 12:19 PM IMPLEMENTATION PROJECT MANAGER Sexual Orientation Straight 07/10/2017 5: 27 PM [...] CDT Appointment Department of Laboratory Medicine in [place], [place] [address] [place] [phone] Silvia Robison M.D. [address] [place] [phone] 11/06/2023 12:30 PM CDT Appointment Department of Laboratory Medicine in [place], [place] [address] [place] [phone] Silvia Robison M.D. [address] [place] [phone] 11/06/2023 1:00 PM CDT Comprehensive Visit Department of Family Medicine, [facility], in [place], [place] [address] [facility] [phone] Silvia Robison M.D. [address] [facility] [phone] documented as of this encounter Procedures [...] Provid er: Remy Heck(R)(CT), R.T.(R) - Comment: [id number]) documented in this encounter Additional Health Concerns Assessment Noted Time PHQ-9 Depression Total Score: 5 03/14/20 8:45 PM IMPLEMENTATION PROJECT MANAGER documented as of this encounter Care Teams Cook Specialty Foreign Food Relationship Specialty Start Date End Date Silvia Robison M.D. [address] [place] [phone] PCP - General Family Medicine 09/27/22 09/16/23 documented as of this encounter
--- OUTSIDE RECORDS SUMMARY | 2023-10-25 20:44 | XMS_ITS | Encounter Summary ---
Author Organization [facility] Address [address] [place] [address] Care Team Providers Care Machinist Supervisor Name Role Phone Silvia Robison M.D. Primary Care Provider Reason for Visit * Reason Comments Med Refill Encounter Details Date Type Department Care Team (Late st Contact Info) Description 10/09/2023 Refill Department of Family Medicine, [facility] [place], in [place], [place] [address] [place] [phone] Silvia Robison M.D. [address] [place] [phone] Med Refill Social History Tobacco Use Types Packs/Day Years Used Date Smoking Tobacco: Former Cigarettes 0.3 37.1 0 09/21/1983 - 10/31/2020 Passive Smoke Exposure: Current Smokeless Tobacco: Never Quit: 01/12/2018 Comments:1 pack per week Alcohol Use Standard Drinks/Week Comments No 0 (1 standard drink = 0.6 oz pur e alcohol) [facility] Utilities Answer Date Recorded In [...] often do you attend chur ch or roman catholic services? Never 06/22/2022 Do you belong to any clubs o r organizations such as episcopal groups, unions, fraternal or athletic groups, or [...] Answer Date Recorded PHQ-2 Score 2 10/09/2023 [facility] [place] of Occupat ional Health - Occupational Stress [...] your living situation today? I have a [facility] place to live 10/12/2023 Education Answer Date Recorded What is the highest level of school you have completed or the highest degree you have received? 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 [address] [phone] 11/06/2023 12:30 PM CDT Appointment Department of Laboratory Medicine in [place], [place] [address] [phone] Silvia Robison M.D. [address] [phone] 11/06/2023 1:00 PM CDT Comprehensive Visit Department of Family Medicine, [facility] [place], in [place], [place] [address], [place] [phone] Silvia Robison M.D. [address], [place] [phone] documented as of this encounter Visit Diagnoses Diagnosis Diabetes Mellitus Type 2 Hyperglycemia (HCC) documented in this encounter Additional Health Concerns Assessment Noted Time PHQ-9 Depression Total Score: 15 024 9:47 AM CDT documented as of this encounter Care Teams Machinist Supervisor Relationship Specialty Start Date End Date Silvia Robison M.D. [address], [place] [phone] PCP - General Family Medicine 10/03/23 documented as of this encounter
[2023-10-25 21:07] VITALS: BP 131/83; PULSE 83; RESP 18; TEMP 35.9
== END 2023-10-25 21:00 | disposition home or self-care (01) ==
PROVIDERS: Emergency Provider Emergency Medicine Emergency Medical Services
DX: S61.011A Laceration without foreign body of right thumb without damage to nail, initial encounter (principal); W26.9XXA Contact with unspecified sharp object(s), initial encounter
CPT/HCPCS: 12001; 99282; 99284

== ENCOUNTER 2023-11-08 19:59 | Emergency (ER) | payer OTHER, SELFPAY ==
[2023-11-08 20:17] VITALS: BP 133/86; PULSE 79; RESP 20; TEMP 36.7; O2SAT 99; BMI 32.0
--- NOTE | 2023-11-08 20:22 | CRLHL7_ITS ---
For Patients: As a result of the Cures Act, medical imaging exams and procedure reports are released immediately into your electronic medical record. You may view this report before your referring provider. If you have questions, please contact your health care provider. Indication: Fall Technique: Three views the right shoulder Comparison: None Findings/Impression: No acute radiographic abnormality appreciated. Dictated by Jhonny Jeter MD @ 11/08/2023 9:26:36 PM (Electronically Signed)
--- NOTE | 2023-11-08 20:22 | ED_ITS ---
HPI - General Adult General Chief complaint: Shoulder Injury/Pain Stated complaint: Fell, R arm/shoulder Time Seen by Provider: 11/08/23 20:13 History of Present Illness HPI narrative: This 53-year-old male states that he fell earlier today onto his right shoulder. He comes in with right shoulder pain and right rib pain. He states that pain in his ribs is reproduced when taking a real deep breath. He did not hit his head or have loss of consciousness. Related Data Home Medications ?Medication ?Instructions ?Recorded ?Confirmed allopurinol 100 mg tablet 100 mg PO BID 12/27/22 11/08/23 amlodipine 10 mg tablet 10 mg PO DAILY 12/27/22 11/08/23 atorvastatin 20 mg tablet 20 mg PO DAILY 12/27/22 11/08/23 bupropion HCl 150 mg 24 hr tablet, 150 mg PO QAM 12/27/22 11/08/23 extended release clonidine HCl 0.1 mg tablet 0.1 mg PO BID 12/27/22 11/08/23 empagliflozin 25 mg tablet 25 mg PO QAM 12/27/22 11/08/23 (Jardiance) gabapentin 300 mg capsule 300 mg PO TID 12/27/22 11/08/23 insulin glargine 100 unit/mL 18 unit subcut QPM 12/27/22 11/08/23 subcutaneous solution (Lantus U-100 Insulin) labetalol 200 mg tablet 200 mg PO BID 12/27/22 11/08/23 lisinopril 40 mg tablet 40 mg PO DAILY 12/27/22 11/08/23 meloxicam 15 mg tablet 15 mg PO DAILY 12/27/22 11/08/23 metformin 500 mg tablet,extended 1,000 mg PO BID 12/27/22 11/08/23 release 24 hr pantoprazole 40 mg tablet,delayed 40 mg PO Q12H 12/27/22 11/08/23 release Previous Rx's ?Medication ?Instructions ?Recorded furosemide 40 mg tablet (Lasix) 40 mg PO BID #14 tabs 01/03/23 Allergies Allergy/AdvReac Type Severity Reaction Status Date / Time coconut Allergy Mild Hives Verified 11/08/23 20:20 morphine Allergy Mild Hives Verified 11/08/23 20:20 Sulfa (Sulfonamide Allergy Mild Hives Verified 11/08/23 20:20 Antibiotics) Review of Systems Status of ROS: Reports: 10 or more systems reviewed and unremarkable except as noted in History and below Narrative: Constitutional: No fevers, no weight gain or loss. Eyes: No discharge. No vision changes. HENT: No congestion, no sore throat, no ear pain. Cardiovascular: No palpitations. Respiratory: No shortness of breath, no wheezes, no cough. Right rib pain. Gastrointestinal: No abdominal pain, no vomiting, no diarrhea. Genitourinary: No dysuria, no hematuria. Musculoskeletal: Normal range of motion. Skin: No rashes, no pruritis. Neurological: No dizziness, weakness, sensory change, speech change. Endo/Heme/Allergies: No bruising or bleeding. No polydipsia. Pysch: no suicidality, no anxiety, no insomnia. All other systems reviewed and are negative. [facility] Social History Smoking Status: Former smoker Second hand tobacco smoke exposure: No How often do you have a drink containing alcohol: never How often do you have six or more drinks on one occasion: Never AUDIT-C Alcohol total score: 0 Non-prescribed substance use: denies use Exam Narrative: Exam Narrative: Constitutional: Well-developed, well-nourished, no acute distress. HEENT: Normocephalic, atraumatic. Neck: Normal range of motion. Nontender. Supple. Heart: Intact distal pulses. Lungs: Chest discomfort on the right side when palpating his ribs. Clear to auscultation. No wheezes, rhonchi, or rales. Abdomen: Nontender. Back: Normal range of motion. Extremities: Right shoulder pain without any sign of deformity. He has some mild decreased range of motion due to pain. Skin: Intact. No rash. Warm. No erythema or pallor. Neurologic: No altered sensation. No weakness. Alert and oriented. Psychiatric: No suicidality. No anxiety or depression. No insomnia. Nursing notes and vitals signs are reviewed. Const: Vital Signs, click to edit/add: Vital Signs - 24 hr 11/08/23 20:17 Temperature 98.0 F Pulse Rate [Right Pulse Oximeter] 79 Respiratory Rate 20 Blood Pressure [Ri ght Upper Arm] 133/86 Pulse Oximetry 99 Oxygen Delivery Me thod Room Air Course Vital Signs Vital signs: Initial Vital Signs Temperature 98.0 F 11/08/23 20:17 Temperature Source Temporal Artery Scan 11/08/23 20:17 Pulse Rate 79 11/08/23 20:17 Respiratory Rate 20 11/08/23 20:17 Blood Pressure 133/86 11/08/23 20:17 Blood Pressure Mean 101 11/08/23 20:17 Blood Pressure Position Sitting 11/08/23 20:17 Pulse Oximetry 99 11/08/23 20:17 Oxygen Delivery Method Room Air 11/08/23 20:17 Vital Signs Temperature 98.0 F 11/08/23 20:17 Pulse Rate 79 11/08/23 20:17 Respiratory Rate 20 11/08/23 20:17 Blood Pressure 133/86 11/08/23 20:17 Pulse Oximetry 99 11/08/23 20:17 Oxygen Delivery Method Room Air 11/08/23 20:17 Temperature 98.0 F 11/08/23 20:17 Pulse Rate 79 11/08/23 20:17 Respiratory Rate 20 11/08/23 20:17 Blood Pressure 133/86 11/08/23 20:17 Pulse Oximetry 99 11/08/23 20:17 Oxygen Delivery Method Room Air 11/08/23 20:17 Medical Decision Making MDM Narrative Medical decision making narrative: This patient comes in with injuries to his right shoulder and right ribs as described above. X-ray of the shoulder and the ribs by my review shows no sign of fracture or dislocation. Lung hope appear normal. Radiology report is pending. Patient is okay to be discharged home and did receive [facility] prescriptions for Toradol and Flexeril. I did also provide a return to work note. Discharge Plan Discharge Clinical Impression: Contusion of rib on right side, Injury of shoulder Patient Disposition: Home, Self-Care Condition: Stable Additional Instructions: Take medication as needed and indicated. Increase activity as tolerated. Follow up with MD return if worsening. Prescriptions: No Action clonidine HCl 0.1 mg tablet 0.1 mg PO BID atorvastatin 20 mg tablet 20 mg PO DAILY labetalol 200 mg tablet 200 mg PO BID insulin glargine [Lantus U-100 Insulin] 100 unit/mL solution 18 unit subcut QPM meloxicam 15 mg tablet 15 mg PO DAILY allopurinol 100 mg tablet 100 mg PO BID amlodipine 10 mg tablet 10 mg PO DAILY pantoprazole 40 mg tablet,delayed release (DR/EC) 40 mg PO Q12H gabapentin 300 mg capsule 300 mg PO TID Rx Instructions: TAKE 1 CAPSULE BY MOUTH IN THE MORNING, 2 CAPSULES IN THE AFTERNOON, AND 3 CAPSULES AT BEDTIME lisinopril 40 mg tablet 40 mg PO DAILY metformin 500 mg tablet extended release 24 hr 1,000 mg PO BID bupropion HCl 150 mg tablet extended release 24 hr 150 mg PO QAM Jardiance 25 mg tablet 25 mg PO QAM furosemide [Lasix] 40 mg tablet 40 mg PO BID Qty: 14 0RF Follow Up/Referrals: Provider,Not a Local [Primary Care Provider] - Stand Alone Forms: [facility] Info Instructions
--- NOTE | 2023-11-08 20:22 | CRLHL7_ITS ---
For Patients: As a result of the Cures Act, medical imaging exams and procedure reports are released immediately into your electronic medical record. You may view this report before your referring provider. If you have questions, please contact your health care provider. Indication: Fall Technique: PA chest and two views of the right ribs Comparison: None Findings/Impression: No acute radiographic abnormality appreciated. Dictated by Jhonny Jeter MD @ 11/08/2023 9:28:11 PM (Electronically Signed)
--- OUTSIDE RECORDS SUMMARY | 2023-11-08 20:32 | XMS_ITS ---
Author Organization [facility] Address [address] [place] [address] Care Team Providers Care Lozenge Dough Mixer Name Role Phone Unavailable Unavailable Unavailable Surgery Details Not on file Complications Check Surgery Details section. Procedure Estimated Blood Loss Check Surgery Details section. Procedure Findings Check Surgery Details section. Procedure Specimens Taken Check Surgery Details section.
--- OUTSIDE RECORDS SUMMARY | 2023-11-08 20:32 | XMS_ITS | Encounter Summary ---
Author Organization [facility] Address [address] [place] [address] Care Team Providers Care Astronautical Engineer Name Role Phone Silvia Robison M.D. Primary Care Provider Reason for Visit * Reason Comments Dental Pain Encounter Details Date Type Department Care Team (Late st Contact Info) Description 09/02/2023 2:44 AM CDT - 09/02/2023 4:34 AM CDT Emergency [facility] [address] [place] [phone] Impacted Tooth (Primary Dx) Discharge Disposition: Home [...] any clubs o r organizations such as zoroastrian groups, unions, fraternal or athletic groups, or [...] Answer Date Recorded PHQ-2 Score 1 03/14/2023 [facility] of Occupat ional Health - [...] place to sleep or slept in a chcf (including now)? 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 06/07/2017 avanafiL 50 mg tabletIndications:Dys function Erectile Take 1 tablets as needed for erectile dysfunction. If blood pressure is not low can take an additional pill 30 tablet 3 03/15/2023 BD Veo Insulin Syringe UF 0.3 mL 31 gauge x 15/64 syringe USE ONCE DAILY 100 each 3 08/24/2022 blood sugar diagnostic strips 2 test daily. 200 test 3 10/12/2022 blood-glucose meter misc Test as directed for diabetes control. 1 each 11/24/2020 chlorhexidine (PERIDEX) 0.12 % mouthwash Swish and spit 15 mL 2 (two) times a day. Swish and spit 15 mL 2 (two) times a day 473 mL 03/12/2023 empagliflozin (Jardiance) 25 mg tabletIndications:Catherine betes Mellitus [...] 3 CAPSULES AT BEDTIME. 270 capsule 05/10/2023 meloxicam (MOBIC) 15 mg tabletIndications:Jerry n Back,Pain Leg Right Take 1 tablet (15 mg total) by mouth daily. 90 tablet 3 11/19/2022 mometasone (NASONEX) 50 mcg/actuation [...] nostril(s) daily as needed. For nasal congestion allopurinoL (ZYLOPRIM) 100 mg tablet Take 1 tablet (100 mg total) by mouth 2 (two) times a day. 180 tablet 3 11/19/2022 11/08/2023 amLODIPine (NORVASC) 10 mg tablet Take 1 tablet (10 mg total) by mouth daily. 90 tablet 3 11/19/2022 11/08/2023 atorvastatin (LIPITOR) 20 mg tablet Take 1 tablet (20 mg total) by mouth daily. 90 tablet 3 11/19/2022 11/08/2023 buPROPion XL (WELLBUTRIN XL) 150 mg 24 hr tablet Take 1 tablet (150 mg total) by mouth every morning. 90 tablet 3 11/19/2022 11/08/2023 cloNIDine (CATAPRES) 0.1 mg tablet Take 1 tablet (0.1 mg total) by mouth 2 (two) times a day. 180 tablet 3 11/19/2022 11/08/2023 insulin glargine (Lantus U-100 Insulin) 100 unit/mL injectionIndications: Diabetes Mellitus Type 2 Hyperglycemia (HCC) Inject 20 mg daily subcutaneously. Increase 2 units every 3 days if your blood sugars are above 150. Max 30 units daily. 18 mL 3 01/03/2023 10/09/2023 labetaloL (NORMODYNE) 200 mg tablet Take 1 tablet (200 mg total) by mouth 2 (two) times a day. 180 tablet 3 11/19/2022 11/08/2023 lisinopriL (PRINIVIL,ZESTRIL) 40 mg tablet Take 1 tablet (40 mg total) by mouth daily. 90 tablet 3 11/19/2022 11/08/2023 metFORMIN XR (GLUCOPHAGE-XR) 500 mg 24 hr tablet Take 2 tablets (1,000 mg total) by mouth 2 (two) times a day. 360 tablet 3 11/19/2022 11/08/2023 documented as of this encounter Plan of Treatment Upcoming Encounters Date Type Department Care Team (Late st Contact Info) Description 12/12/2023 10:30 AM CDT Appointment Department of Laboratory Medicine in [place], [place] [address], [place] [phone] Silvia Robison M.D. [address] [place] [phone] 12/12/2023 10:40 AM CDT Appointment Department of Laboratory Medicine in [place], [place] [address] [place] [phone] Silvia Robison M.D. [address] [place] [phone] documented as of this encounter Procedures Procedure [...] (Given - Provid er: Remy Heck(R)(CT), R.T.(R)) sodium chloride 0.9 % injection 10 [...] Provid er: Remy Heck(R)(CT), R.T.(R) - Comment: [id number]) documented in this encounter Additional Health Concerns Assessment Noted Time PHQ-9 Depression Total Score: 5 03/14/20 23 8:45 PM CLOTH WASHER OPERATOR documented as of this encounter Care Teams Astronautical Engineer Relationship Specialty Start Date End Date Silvia Robison M.D. [address] [phone] PCP - General Family Medicine 09/27/22 09/16/23 documented as of this encounter
--- OUTSIDE RECORDS SUMMARY | 2023-11-08 20:32 | XMS_ITS | Encounter Summary ---
Author Organization [facility] Address [address] [place] [address] Care Team Providers Care Centrifugal Chiller Technician Name Role Phone Silvia Robison M.D. Primary Care Provider Reason for Visit * Reason Comments Med Refill Encounter Details Date Type Department Care Team (Late st Contact Info) Description 10/09/2023 Refill Department of Family Medicine, [facility], in [place], [place] [address] [place] [phone] Silvia Robison M.D. [address] [place] [phone] Med Refill Social History Tobacco Use Types Packs/Day Years Used Date Smoking Tobacco: Former Cigarettes 0.3 37.1 0 09/21/1983 - 10/31/2020 Passive Smoke Exposure: Current Smokeless Tobacco: Never Quit: 01/12/2018 Comments:1 pack per week Alcohol Use Standard Drinks/Week Comments No 0 (1 standard drink = 0.6 oz pur e alcohol) [facility] Utilities Answer Date Recorded In [...] often do you attend chur ch or bahai services? Never 06/22/2022 Do you belong to any clubs o r organizations such as zoroastrianism groups, unions, fraternal or athletic groups, or [...] Answer Date Recorded PHQ-2 Score 2 10/09/2023 [facility] [place] of Occupat ional Health - Occupational Stress [...] your living situation today? I have a [facility] place to live 10/12/2023 Education Answer Date Recorded What is the highest level of school you have completed or the highest degree you have received? 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 [address] [place] [phone] 12/12/2023 10:40 AM CDT Appointment Department of Laboratory Medicine in [place], [place] [address] [place] [phone] Silvia Robison M.D. [address] [place] [phone] documented as of this encounter Visit Diagnoses Diagnosis Diabetes Mellitus Type 2 Hyperglycemia (HCC) documented in this encounter Additional Health Concerns Assessment Noted Time PHQ-9 Depression Total Score: 15 024 9:47 AM CDT documented as of this encounter Care Teams Centrifugal Chiller Technician Relationship Specialty Start Date End Date Silvia Robison M.D. [address] [phone] PCP - General Family Medicine 10/03/23 documented as of this encounter
--- OUTSIDE RECORDS SUMMARY | 2023-11-08 20:32 | XMS_ITS | Referral Summary ---
Author Organization [facility] Address [address] [place] [address] Care Team Providers Care Senior Catering Sales Manager Name Role Phone Silvia Robison M.D. Primary Care Provider Source Comments Patient records contain information from all sites at [facility]. For routine questions regarding patient records, call [phone] during business hours, M-F 8:00 AM - 5:00 PM Central Time. Record requests for emergency care only can be directed to [phone] at any time.[facility] Encounters Date Type Department Care Team Description 11/07/2023 Refill Department of Family Medicine, [facility], in [place], [place] [address] [phone] Silvia Robison M.D. Med Refill 10/09/2023 Refill Department of Family Medicine, [facility], in [place], [place] [address] [place] [phone] Silvia Robison M.D. Med Refill 09/02/2023 2:44 AM CDT - 09/02/2023 4:34 AM CDT Emergency [facility] [address] [place] [address] Impacted Tooth (Primary Dx) Discharge Disposition: Home [...] test daily. 200 test 3 3 Active empagliflozin (Jardiance) 25 mg tabletIndications :Diabetes Mellitus Type 2 Hyperglycemia (HCC) Take 1 tablet (25 mg total) by mouth every morning before breakfast. 90 tablet 3 3 Active pantoprazole (PROTONIX) 40 mg EC tablet Take 1 tablet (40 mg total) by mouth 2 (two) times a day before breakfast and dinner. 180 tablet 3 3 Active meloxicam (MOBIC) 15 mg tabletIndications :Pain Back,Pain Leg Right Take 1 tablet (15 mg total) by mouth daily. 90 tablet 3 3 Active furosemide (LASIX) 20 mg tablet Take 1 tablet (20 mg total) by mouth daily. 30 tablet 3 Active chlorhexidine (PERIDEX) 0.12 % mouthwash Swish and spit 15 mL 2 (two) times a day. Swish and spit 15 mL 2 (two) times a day 473 mL 3 Active mometasone (NASONEX) 50 mcg/actuation nasal sprayIndications: Allergy Seasonal Administer 2 sprays into each nostril daily. 17 g 5 3 03/14/20 24 Active avanafiL 50 mg tabletIndications :Dysfunction Erectile Take 1 tablets as needed for erectile dysfunction. If blood pressure is not low can take an additional pill 30 tablet 3 3 Active gabapentin (NEURONTIN) 300 mg capsuleIndication s:Neuropathy TAKE 1 CAPSULE BY MOUTH IN THE MORNING, 2 CAPSULES IN THE AFTERNOON, AND 3 CAPSULES AT BEDTIME. 270 capsule 4 Active insulin glargine (Lantus U-100 Insulin) 100 unit/mL injectionIndicati ons:Diabetes Mellitus Type 2 Hyperglycemia (HCC) Inject 20 mg daily subcutaneously. 18 mL 3 4 Active allopurinoL (Zyloprim) 100 mg tablet Take 1 tablet by mouth twice daily 180 tablet 3 4 Active amLODIPine (Norvasc) 10 mg tablet Take 1 tablet by mouth once daily 90 tablet 3 4 Active atorvastatin (Lipitor) 20 mg tablet Take 1 tablet by mouth once daily 90 tablet 3 4 Active buPROPion XL (Wellbutrin XL) 150 mg 24 hr tablet take 1 tablet by mouth once daily in the morning 90 tablet 3 4 Active cloNIDine (Catapres) 0.1 mg tablet Take 1 tablet by mouth twice daily 180 tablet 3 4 Active labetaloL 200 mg tablet Take 1 tablet by mouth twice daily 180 tablet 3 4 Active lisinopriL 40 mg tablet Take 1 tablet by mouth once daily 90 tablet 3 4 Active metFORMIN XR (Glucophage-XR) 500 mg 24 hr tablet Take 2 tablets by mouth twice daily 360 tablet 3 4 Active amLODIPine (NORVASC) 10 mg tablet Take 1 tablet (10 mg total) by mouth daily. 90 tablet 3 3 11/08/19 24 Discontinued atorvastatin (LIPITOR) 20 mg tablet Take 1 tablet (20 mg total) by mouth daily. 90 tablet 3 3 11/08/19 24 Discontinued labetaloL (NORMODYNE) 200 mg tablet Take 1 tablet (200 mg total) by mouth 2 (two) times a day. 180 tablet 3 3 11/08/19 24 Discontinued lisinopriL (PRINIVIL,ZESTRIL ) 40 mg tablet Take 1 tablet (40 mg total) by mouth daily. 90 tablet 3 3 11/08/19 24 Discontinued cloNIDine (CATAPRES) 0.1 mg tablet Take 1 tablet (0.1 mg total) by mouth 2 (two) times a day. 180 tablet 3 3 11/08/19 24 Discontinued metFORMIN XR (GLUCOPHAGE-XR) 500 mg 24 hr tablet Take 2 tablets (1,000 mg total) by mouth 2 (two) times a day. 360 tablet 3 3 11/08/19 24 Discontinued allopurinoL (ZYLOPRIM) 100 mg tablet Take 1 tablet (100 mg total) by mouth 2 (two) times a day. 180 tablet 3 3 11/08/19 24 Discontinued buPROPion XL (WELLBUTRIN XL) 150 mg 24 hr tablet Take 1 tablet (150 mg total) by mouth every morning. 90 tablet 3 3 11/08/19 24 Discontinued Active Problems Problem Noted Date Diagnosed Date [...] Trileptal and was diagnosed with bipolar in [place]. -many acute stressors such as needing to [...] Overview: Added automatically from request for surgery [id number] Pain Hand Left 09/24/2017 07/20/2020 Hypertension Essential [...] Next Due HepA Adult 06/22/2022(Deferred: Patient cecile goodmanreggie) HepB Adult 05/12/2021 07/10/2021 HepB Adult (HEPLISAV-B) [...] drink = 0.6 oz pur e alcohol) [facility] Utilities Answer Date Recorded In the past 12 months has [employer], [employer], or water [place] threatened to shut off services in your [...] Never 06/22/2022 How often do you attend [facility] or cheondoism services? Never 06/22/2022 Do you belong to any clubs o r organizations such as moravian groups, unions, fraternal or athletic groups, or [...] Answer Date Recorded PHQ-2 Score 2 10/09/2023 [facility] Questionnaire Answer Date Recorded [...] your living situation today? I have [facility] [employer] [facility] live 10/12/2023 Education Answer Date Recorded What is the highest level of school you have completed or the highest degree you have received? 12th grade 05/19/2019 Sex and Gender Information Value Date Recorded Sex Assigned at Male 08/16/2019 8:50 PM CDT Gender Identity Male 05/21/2020 12:19 PM BERRY PICKER MACHINE OPERATOR Sexual Orientation Straight 07/10/2017 5: 27 PM CDT Job Start Date Occupation Industry Not on file Not on file Not on file Last Filed Vital Signs Vital Sign Reading Time Taken Comments Blood Pressure 118/81 06/21/2023 10:51 AM BERRY PICKER MACHINE OPERATOR Pulse 83 06/21/2023 10:51 AM BERRY PICKER MACHINE OPERATOR Temperature 36.1 ??C (96.9 ??F) 03/15/2023 11:[address] Respiratory Rate 18 06/16/2022 4:23 PM BERRY PICKER MACHINE OPERATOR Oxygen Saturation 97% 06/16/2022 6:15 PM BERRY PICKER MACHINE OPERATOR Inhaled Oxygen Concentration - - Weight 126 kg (277 lb 1.9 oz) 06/21/2023 10:51 A M BERRY PICKER MACHINE OPERATOR Height 196 cm (6' 5.17) 06/21/2023 10:51 AM BERRY PICKER MACHINE OPERATOR Body Mass Index 32.72 06/21/2023 10:51 AM BERRY PICKER MACHINE OPERATOR Plan of Treatment Upcoming Encounters Date Type Department Care Team (Late st Contact Info) Description 12/12/2023 10:30 AM CDT Appointment Department of Laboratory Medicine in [place], [place] [address] [place] [address] Silvia Robison M.D. [address] [place] [address] 12/12/2023 10:40 AM CDT Appointment Department of Laboratory Medicine in [place], [place] [address] [place] [phone] Silvia Robison M.D. [address] [place] [phone] Medical Devices Implanted Type Area Overcoiler Device Identifier Shelf Expiration Date Model / Serial / Lot Chips Cancellous 5cc - Luke [id number] Implanted:Qty: 1 on 06/07/2017 Bone or Tissue Other/Legacy - See Implant Description [employer] Description:Device Manufactu rer - [employer]. Body Location - Other. bone for packing defect. Device Status Text - [id number]. Peg Smooth 2.0mm X 18mm Long - Luke [id number] Implanted:Qty: 3 on 06/07/2017 Hardware e.g. pins/screws /rods BioMet Description:Device Manufactu rer - [employer]. Device Status Text - [id number]. Peg Smooth 2.0mm X 20mm Long - Luke [id number] Implanted:Qty: 2 on 06/07/2017 Hardware e.g. pins/screws /rods BioMet Description:Device Manufactu rer - [employer]. Device Status Text - [id number]. Screw-Cortical 3.5mm X 14mm Long - Luke [id number] Implanted:Qty: 3 on 06/07/2017 Hardware e.g. pins/screws /rods BioMet Description:Device Manufactu rer - [employer]. Device Status Text - [id number]. Plate-Distal Volar Lt Short - Luke [id number] Implanted:Qty: 1 on 06/07/2017 Hardware e.g. pins/screws /rods BioMet Description:Device Manufactu rer - [employer]. Device Status Text - [id number]. Screw-Cortical 3.5mm X 15mm Long - Luke [id number] Implanted:Qty: 2 on 06/07/2017 Hardware e.g. pins/screws /rods BioMet Description:Device Manufactu rer - [employer]. Device Status Text - HARDWARE-49732. Peg Threaded 2.5mm X 20mm Long - Luke [id number] Implanted:Qty: 1 on 06/07/2017 Hardware e.g. pins/screws /rods BioMet Description:Device Manufactu rer - [employer]. Device Status Text - HARDWARE-76176. Peg Smooth 2.0mm X 22mm Long - Luke [id number] Implanted:Qty: 1 on 06/07/2017 Hardware e.g. pins/screws /rods BioMet Description:Device Manufactu rer - [employer]. Device Status Text - HARDWARE-25671. Explanted Type Area Overcoiler Device Identifier Shelf Expiration Date Model / Serial / Lot Stnt Uret Inl 7fx26 - [id number] Implanted:Qty : 1 on 07/15/2019 by Terry Girard M.D. at [facility] Ureteral Stent C.R.Bard [id number] 05/01/2023 [id number] / / [id number] Procedures Procedure Name Priority Date/Time Associated Diagnosis Comments CT MAXILLOFACIAL WITH IV CONTRAST RAD - Semiurgent (Fast; most ED patients; some inpatients) 09/02/2023 3:55 AM CDT EXTI BASIC METABOLIC PANEL, S/P Routine 09/02/2023 3:21 AM CDT EXTI LIPID PANEL W REFLEX MEASURED LDL Routine 07/09/2023 10:31 AM CDT HEMOGLOBIN A1C, B Routine 03/15/2023 12:07 PM BERRY PICKER MACHINE OPERATOR Diabetes Mellitus Type 2 (HCC) ALBUMIN, RANDOM, U Routine 03/15/2023 10:57 AM BERRY PICKER MACHINE OPERATOR Diabetes Mellitus Type 2 Hyperglycemia (HCC) [...] * (ABNORMAL) Hemoglobin A1c (03/15/2023 12:07 PM BERRY PICKER MACHINE OPERATOR) Hemoglobin A1c, B 7.4(H) 4.2 - 5.6 % 03/15/2023 12:36 PM BERRY PICKER MACHINE OPERATOR OWAT Comment: Hemoglobin A1c values greater than or equal to 6.5 percent are diagnostic for diabetes mellitus. ??Diagnosis should be confirmed by repeat testing. ??In diabetic patients, HbA1c goals should be discussed with healthcare provider. Blood (Blood, Venous) 03/15/2023 12:07 PM BERRY PICKER MACHINE OPERATOR 03/15/2023 12:22 PM BERRY PICKER MACHINE OPERATOR Anuj Garcia M.D. LAB BLOOD ADD-ON [facility] [address] [place] [address], [place] OWAT [facility] [place] [address] [place] [address] * (ABNORMAL) Albumin, Random, Urine (03/15/2023 10:57 AM BERRY PICKER MACHINE OPERATOR) Microalbumin <12.0 mg/L 03/15/2023 1:54 PM BERRY PICKER MACHINE OPERATOR OWAT Comment:If clinically indica brianda, contact the lab for additional testing. Creatinine 53 mg/dL 03/15/2023 1:54 PM BERRY PICKER MACHINE OPERATOR OWAT Albumin/Creatinine Ratio <23(H) <17 mg/g 03/15/2023 1:54 PM BERRY PICKER MACHINE OPERATOR OWAT Comment: This ratio may not correspond with the reference range because one or both of the values used to calculate the ratio was above or below the quantification limits. Urine (Urine, Midstream) 03/15/2023 10:57 AM BERRY PICKER MACHINE OPERATOR 03/15/2023 11:39 AM BERRY PICKER MACHINE OPERATOR Silvia Robison M.D. LAB URINE ORDER GENIE [facility] [address] [place] [address], [facility] OWAT [facility] [place] [address] [place] [address] from Last 3 Months or Most Recently Relevant to Health Maintenance Advance Directives For more information, please contact: [phone] * Full Code (Latest Code Status on File) Date Activated Date Inactivated Comments 07/15/2019 10:35 AM 07/16/2019 1:23 PM Question Answer Comments Full Code: Discussed Care Teams Senior Catering Sales Manager Relationship Specialty Start Date End Date Robison, Silvia M, M.D. [address] [place] [phone] PCP - General Family Medicine 10/03/23
--- OUTSIDE RECORDS SUMMARY | 2023-11-08 20:32 | XMS_ITS | Clinical Summary ---
Author Organization [facility] Address [address] [place] [address] Care Team Providers Care Fruit Or Nut Farmer Name Role Phone Silvia Robison M.D. Primary Care Provider Source Comments Patient records contain information from all sites at [facility]. For routine questions regarding patient records, call [phone] during business hours, M-F 8:00 AM - 5:00 PM Central Time. Record requests for emergency care only can be directed to [phone] at any time.[facility] Allergies Active Allergy Reactions Criticality Noted Date [...] tablet by mouth once daily 90 tablet 4 Active buPROPion XL (Wellbutrin XL) 150 mg 24 hr tablet take 1 tablet by mouth once daily in the morning 90 tablet 4 Active cloNIDine (Catapres) 0.1 mg tablet Take 1 tablet by mouth twice daily 180 tablet 4 Active labetaloL 200 mg tablet Take 1 tablet by mouth twice daily 180 tablet 4 Active lisinopriL 40 mg tablet Take 1 tablet by mouth once daily 90 tablet 4 Active metFORMIN XR (Glucophage-XR) 500 mg 24 hr tablet Take 2 tablets by mouth twice daily 360 tablet 4 Active amLODIPine (NORVASC) 10 mg tablet Take 1 tablet (10 mg total) by mouth daily. 90 tablet 3 11/08/19 24 Discontinued atorvastatin (LIPITOR) 20 mg tablet Take 1 tablet (20 mg total) by mouth daily. 90 tablet 11/08/19 24 Discontinued labetaloL (NORMODYNE) 200 mg tablet Take 1 tablet (200 mg total) by mouth 2 (two) times a day. 180 tablet 11/08/19 24 Discontinued lisinopriL (PRINIVIL,ZESTRIL ) 40 mg tablet Take 1 tablet (40 mg total) by mouth daily. 90 tablet 11/08/19 24 Discontinued cloNIDine (CATAPRES) 0.1 mg tablet Take 1 tablet (0.1 mg total) by mouth 2 (two) times a day. 180 tablet 11/08/19 24 Discontinued metFORMIN XR (GLUCOPHAGE-XR) 500 mg 24 hr tablet Take 2 tablets (1,000 mg total) by mouth 2 (two) times a day. 360 tablet 11/08/19 24 Discontinued allopurinoL (ZYLOPRIM) 100 mg tablet Take 1 tablet (100 mg total) by mouth 2 (two) times a day. 180 tablet 3 11/08/19 24 Discontinued buPROPion XL (WELLBUTRIN [...] Trileptal and was diagnosed with bipolar in [place]. -many acute stressors such as needing to [...] Overview: Added automatically from request for surgery [id number] Pain Hand Left 09/24/2017 07/20/2020 Hypertension Essential [...] Description 11/07/2023 Refill Department of Family Medicine, [facility], in [place], [place] [address] [phone] Silvia Robison M.D. Med Refill 10/09/2023 Refill Department of Family Medicine, [facility], [place], [place] [address] [place] [phone] Silvia Robison M.D. Med Refill 09/02/2023 2:44 AM CDT - 09/02/2023 4:34 AM CDT Emergency [facility] [address] [place] [address] Impacted Tooth (Primary Dx) Discharge Disposition: Home [...] Maternal Grandfather Tashi Olson Hypertension Maternal Grandfather Tashi Proctor Stroke Maternal Grandfather Tashi Proctor Breast cancer Mother Sienna Vuong Unexplained Mother [...] drink = 0.6 oz pur e alcohol) [facility] Utilities Answer Date Recorded In the past 12 months has e [employer], gas, oil, or water [employer] threatened to shut off services in your [...] often do you attend chur ch or yazidism services? Never 06/22/2022 Do you belong to any clubs o r organizations such as religion groups, unions, fraternal or athletic groups, or [...] Answer Date Recorded PHQ-2 Score 2 10/09/2023 [facility] - Occupational Stress [...] your living situation today? I have a [facility] place to live 10/12/2023 Education Answer Date Recorded What is the highest level of school you have completed or the highest degree you have received? 12th grade 05/19/2019 Sex and Gender Information Value Date Recorded Sex Assigned at Male 08/16/2019 8:50 PM CDT Gender Identity Male 05/21/2020 12:19 PM LITIGATION ASSISTANT Sexual Orientation Straight 07/10/2017 5: 27 PM CDT Job Start Date Occupation Industry Not on file Not on file Not on file Last Filed Vital Signs Vital Sign Reading Time Taken Comments Blood Pressure 118/81 06/21/2023 10:51 AM LITIGATION ASSISTANT Pulse 83 06/21/2023 10:51 AM LITIGATION ASSISTANT Temperature 36.1 ??C (96.9 ??F) 03/15/2023 11:[address] Respiratory Rate 18 06/16/2022 4:23 PM LITIGATION ASSISTANT Oxygen Saturation 97% 06/16/2022 6:15 PM LITIGATION ASSISTANT Inhaled Oxygen Concentration - - Weight 126 kg (277 lb 1.9 oz) 06/21/2023 10:51 A M LITIGATION ASSISTANT Height 196 cm (6' 5.17) 06/21/2023 10:51 AM LITIGATION ASSISTANT Body Mass Index 32.72 06/21/2023 10:51 AM LITIGATION ASSISTANT Plan of Treatment Upcoming Encounters Date Type Department Care Team (Late st Contact Info) Description 12/12/2023 10:30 AM CDT Appointment Department of Laboratory Medicine in [place], [place] [address] [place] [phone] Silvia Robison M.D. [address], [place] [phone] 12/12/2023 10:40 AM CDT Appointment Department of Laboratory Medicine in [place], [place] [address] [place] [phone] Silvia Robison M.D. [address], [place] [address] Health Maintenance Due Date Last [...] (PHQ-9) 02/08/2024 10/09/2023 Urine Albumin 03/15/2024 03/15/2023, 12/0 11/2021, 08/26/2020, Additional history exists Visit: Chronic Disease, [...] Completed 023 Medical Devices Implanted Type Area Freight Caller Device Identifier Shelf Expiration Date Model / Serial / Lot Chips Cancellous 5cc - Luke [id number] Implanted:Qty: 1 on 06/07/2017 Bone or Tissue Other/Legacy - See Implant Description [employer] Description:Device Manufactu rer - [employer]. Body Location - Other. bone for packing defect. Device Status Text - [id number]. Peg Smooth 2.0mm X 18mm Long - Luke [id number] Implanted:Qty: 3 on 06/07/2017 Hardware e.g. pins/screws /rods BioMet Description:Device Manufactu rer - [employer]. Device Status Text - HARDWARE-[id number]. Peg Smooth 2.0mm X 20mm Long - Luke [id number] Implanted:Qty: 2 on 06/07/2017 Hardware e.g. pins/screws /rods BioMet Description:Device Manufactu rer - [employer]. Device Status Text - HARDWARE-38433. Screw-Cortical 3.5mm X 14mm Long - Luke [id number] Implanted:Qty: 3 on 06/07/2017 Hardware e.g. pins/screws /rods BioMet Description:Device Manufactu rer - [employer]. Device Status Text - [id number]. Plate-Distal Volar Lt Short - Luke [id number] Implanted:Qty: 1 on 06/07/2017 Hardware e.g. pins/screws /rods BioMet Description:Device Manufactu rer - [employer]. Device Status Text - [id number]. Screw-Cortical 3.5mm X 15mm Long - Luke [id number] Implanted:Qty: 2 on 06/07/2017 Hardware e.g. pins/screws /rods BioMet Description:Device Manufactu rer - [employer]. Device Status Text - HARDWARE-38782. Peg Threaded 2.5mm X 20mm Long - Luke [id number] Implanted:Qty: 1 on 06/07/2017 Hardware e.g. pins/screws /rods BioMet Description:Device Manufactu rer - [employer]. Device Status Text - HARDWARE-53931. Peg Smooth 2.0mm X 22mm Long - Luke [id number] Implanted:Qty: 1 on 06/07/2017 Hardware e.g. pins/screws /rods BioMet Description:Device Manufactu rer - [employer]. Device Status Text - HARDWARE-66579. Explanted Type Area Freight Caller Device Identifier Shelf Expiration Date Model / Serial / Lot Stnt Uret Inl 7fx26 - [id number] Implanted:Qty : 1 on 07/15/2019 by Terry Girard M.D. at [facility] Ureteral Stent C.R.Bard [id number] 05/01/2023 [id number] / / [id number] Procedures Procedure Name Priority Date/Time Associated Diagnosis Comments CT MAXILLOFACIAL WITH IV CONTRAST RAD - Semiurgent (Fast; most ED patients; some inpatients) 09/02/2023 3:55 AM CDT EXTI BASIC METABOLIC PANEL, S/P Routine 09/02/2023 3:21 AM CDT EXTI LIPID PANEL W REFLEX MEASURED LDL Routine 07/09/2023 10:31 AM CDT HEMOGLOBIN A1C, B Routine 03/15/2023 12:07 PM LITIGATION ASSISTANT Diabetes Mellitus Type 2 (HCC) ALBUMIN, RANDOM, U Routine 03/15/2023 10:57 AM LITIGATION ASSISTANT Diabetes Mellitus Type 2 Hyperglycemia (HCC) from [...] odontogenic infection as described. Jona Valdez M.D. [facility] CT PROCEDURES * (ABNORMAL) Hemoglobin A1c (03/15/2023 12:07 PM LITIGATION ASSISTANT) Hemoglobin A1c, B 7.4(H) 4.2 - 5.6 % 03/15/2023 12:36 PM LITIGATION ASSISTANT OWAT Comment: Hemoglobin A1c values greater than or equal to 6.5 percent are diagnostic for diabetes mellitus. ??Diagnosis should be confirmed by repeat testing. ??In diabetic patients, HbA1c goals should be discussed with healthcare provider. Blood (Blood, Venous) 03/15/2023 12:07 PM LITIGATION ASSISTANT 03/15/2023 12:22 PM LITIGATION ASSISTANT Anuj Garcia M.D. LAB BLOOD ADD-ON Performing Organization Address City/[facility]/ZIP Co de Phone Number [facility] [address] [place] [address], [place] OWAT [facility] [place] [address] [place] [address] * (ABNORMAL) Albumin, Random, Urine (03/15/2023 10:57 AM LITIGATION ASSISTANT) Microalbumin <12.0 mg/L 03/15/2023 1:54 PM LITIGATION ASSISTANT OWAT Comment:If clinically indica brianda, contact the lab for additional testing. Creatinine 53 mg/dL 03/15/2023 1:54 PM LITIGATION ASSISTANT OWAT Albumin/Creatinine Ratio <23(H) <17 mg/g 03/15/2023 1:54 PM LITIGATION ASSISTANT OWAT Comment: This ratio may not correspond with the reference range because one or both of the values used to calculate the ratio was above or below the quantification limits. Urine (Urine, Midstream) 03/15/2023 10:57 AM LITIGATION ASSISTANT 03/15/2023 11:39 AM LITIGATION ASSISTANT Silvia Robison M.D. LAB URINE ORDER GENIE Performing Organization Address City/[facility] Co de Phone Number [facility] [address] [place] [address], [place] OW[place] [facility] [place] [address] [place] [address] from Last 3 Months or Most Recently Relevant to Health Maintenance Advance Directives For more information, please contact: [phone] * Full Code (Latest Code Status on File) Date Activated Date Inactivated Comments 07/15/2019 10:35 AM 07/16/2019 1:23 PM Question Answer Comments Full Code: Discussed Care Teams Fruit Or Nut Farmer Relationship Specialty Start Date End Date Silvia Robison M.D. [address] [place] [phone] PCP - General Family Medicine 10/03/23
--- OUTSIDE RECORDS SUMMARY | 2023-11-08 20:32 | XMS_ITS | Encounter Summary ---
Author Organization [facility] Address [address] [place] [address] Care Team Providers Care Gear Tooth Lapping Machine Operator Name Role Phone Silvia Robison M.D. Primary Care Provider Reason for Visit * Reason Comments Med Refill Encounter Details Date Type Department Care Team (Late st Contact Info) Description 11/07/2023 Refill Department of Family Medicine, [facility], in [place], [place] [address] [place] [phone] Silvia Robison M.D. [address] [place] [phone] Med Refill Social History Tobacco Use [...] often do you attend chur ch or samaritan services? Never 06/22/2022 Do you belong to [...] Answer Date Recorded PHQ-2 Score 2 10/09/2023 [facility] Occup[facility] - Occupational Stress [...] your living situation today? I have a [facility] place to live 10/12/2023 Education Answer Date Recorded What is the highest level of school you have completed or the highest degree you have received? 12th grade 05/19/2019 Sex and Gender Information Value Date Recorded Sex Assigned at Male 08/16/2019 8:50 PM CDT Gender Identity Male 05/21/2020 12:19 PM [employer]S PRODUCT ANALYST Sexual Orientation Straight 07/10/2017 5: 27 PM CDT Job Start Date Occupation Industry Not on file Not on file Not on file documented as of this encounter Plan of Treatment Upcoming Encounters Date Type Department Care Team (Late st Contact Info) Description 12/12/2023 10:30 AM CDT Appointment Department of Laboratory Medicine in [place], [place] [address], [place] [phone] Silvia Robison M.D. [address] [phone] 12/12/2023 10:40 AM CDT Appointment Department of Laboratory Medicine in [place], [place] [address] [phone] Silvia Robison M.D. [address] [phone] documented as of this encounter Visit Diagnoses Not on filedocumented in this encounter Additional Health Concerns Assessment Noted Time PHQ-9 Depression Total Score: 15 024 9:47 AM CDT documented as of this encounter Care Teams Gear Tooth Lapping Machine Operator Relationship Specialty Start Date End Date Silvia Robison M.D. [address] [phone] PCP - General Family Medicine 10/03/23 documented as of this encounter
--- OUTSIDE RECORDS SUMMARY | 2023-11-08 20:33 | XMS_ITS | Clinical Summary ---
Author Organization [employer] [facility] [employer] [facility] Address [place], [place] [address] Care Team Providers Care Power Lineworker Name Role Phone Silvia Robison MD Primary [...] Overview: Added automatically from request for surgery [id number] Added automatically from request for surgery [id number] Type 2 diabetes mellitus without complication Overview: [...] Type Department Care Team Description 11/07/2023 Refill [facility] [address] [place] [address] Drake Cook MD Refill Request (Gabapentin) 09/02/2023 2:47 AM CDT - 09/02/2023 4:34 AM CDT Emergency [facility] [address] [place] [phone] Jona Valdez MD Dental infection (Primary Dx) Discharge Disposition: Home Self Care 09/02/2023 Orders Only [facility] [address], [place] [address] Jc Irene III, MD <No scans attached> from Last 3 Months Immunizations Name Administration [...] - 11.0 thou/cu mm 09/02/2023 4:21 AM [facility] RED BLOOD COUNT 4.58 4.30 - 5.90 mil/cu mm 09/02/2023 4:21 AM [facility] HEMOGLOBIN 13.4(L) 13.5 - 17.5 g/dL 09/02/2023 4: AM [facility] HEMATOCRIT 40.3 37.0 - 53.0 % 09/02/2023 4: AM [facility] MCV 88 80 - 100 fL 09/02/2023 4:21 AM [facility] MCH 29.3 26.0 - 34.0 pg 09/02/2023 4: AM [facility] MCHC 33.3 32.0 - 36.0 g/dL 09/02/2023 4: AM [facility] RDW 14.2 11.5 - 15.5 % 09/02/2023 4: AM [facility] PLATELET COUNT 162 140 - 440 thou/cu mm 09/02/2023 4:21 AM [facility] MPV 12.0(H) 6.5 - 11.0 fL 09/02/2023 4: AM [facility] % NEUT 59.6 % 09/02/2023 4: AM [facility] % LYMPH 24.2 % 09/02/2023 4: AM [facility] % MONO 10.3 % 09/02/2023 4: AM [facility] % EOS 5.8 % 09/02/2023 4:21 AM [facility] % BASO 0.1 % 09/02/2023 4:21 AM [facility] ABSOLUTE NEUTROPHILS 4.1 1.7 - 7.0 thou/cu mm 09/02/2023 4:21 AM [facility] ABSOLUTE LYMPHOCYTES 1.7 0.9 - 2.9 thou/cu mm 09/02/2023 4: AM [facility] ABSOLUTE MONOCYTES 0.7 <0.9 thou/cu mm 09/02/2023 4:21 AM [facility] ABSOLUTE EOSINOPHILS 0.4 <0.5 thou/cu mm 09/02/2023 4:21 AM [facility] ABSOLUTE BASOPHILS 0.0 <0.3 thou/cu mm 09/02/2023 4:21 AM [facility] Blood BLOOD SPECIMEN / Unknown Venipuncture / Unknown 09/02/2023 3:21 AM CDT 09/02/2023 4:17 AM T Jona Valdez MD HEMATOLOGY [facility] [address] [phone] * (ABNORMAL) BASIC METABOLIC PANEL (09/02/2023 3:21 AM T) SODIUM 136 136 - 145 mmol/L 09/02/2023 5:32 AM [facility] POTASSIUM 4.0 3.5 - 5.1 mmol/L 09/02/2023 5:32 AM [facility] CHLORIDE 101 98 - 107 mmol/L 09/02/2023 5:32 AM [facility] CO2,TOTAL 19(L) 22 - 29 mmol/L 09/02/2023 5:32 AM [facility] ANION GAP 16 5 - 18 09/02/2023 5:32 AM [facility] GLUCOSE 306(H) 70 - 99 mg/dL 09/02/2023 5:32 AM [facility] CALCIUM 9.0 8.6 - 10.0 mg/dL 09/02/2023 5:32 AM [facility] BUN 9 6 - 20 mg/dL 09/02/2023 5:32 AM [facility] CREATININE 0.82 0.70 - 1.20 mg/dL 09/02/2023 5:32 AM [facility] BUN/CREAT RATIO 11 10 - 20 5:32 AM [facility] eGFR >90 >90 mL/min/1.7 3m2 09/02/2023 5:32 AM [facility] Comment:As of 2021, eG FR is calculated by the CKD-EPI creatinine equation without race adjustment. ??eGFR can be influenced by muscle mass, exercise, and diet. ??The reported eGFR is an estimation only and is only applicable if the renal function is stable. Blood BLOOD SPECIMEN / Unknown Venipuncture / Unknown 09/02/2023 3:21 AM CDT 09/02/2023 4:17 AM CDT Jona Valdez MD CHEMISTRY [facility] [address], [place] [phone] * (ABNORMAL) LIPID PANEL W REFLEX MEASURED LDL (07/09/2023 10:31 AM CDT) CHOLESTEROL,TOTAL 132 100 - 199 mg/dL 07/09/2023 2:52 PM CDT [facility] Comment: Cholesterol, Total Reference Ranges Desirable <200 mg/dL Borderline 200-239 mg/dL High >=240 mg/dL TRIGLYCERIDES 225(H) <150 mg/dL 07/09/2023 2:52 PM CDT [facility] HDL CHOLESTEROL 35(L) >40 mg/dL 2:52 PM CDT [facility] NON-HDL CHOLESTEROL 97 <145 mg/dl 07/09/2023 2:52 PM CDT [facility] CHOL/HDL RATIO 3.77 <4.50 07/09/2023 2:52 PM CDT [facility] LDL CHOLESTEROL 52 <=130 mg/dL 07/09/2023 2:52 PM CDT [facility] VLDL CHOLESTEROL 45(H) <=30 mg/dL 07/09/2023 2:52 PM CDT [facility] PROVIDER ORDERED STATUS FASTING 07/09/2023 2:52 PM CDT [facility] Blood BLOOD SPECIMEN / Unknown Venipuncture / Unknown 07/09/2023 10:31 AM CDT 07/09/2023 10:32 AM CDT [facility] [address] [place] [address], from Last 3 Months or Most Recently Relevant to Health Maintenance Care Teams Power Lineworker Relationship Specialty Start Date End Date Silvia Robison MD [address] [phone] PCP - General Family Practice 09/02/23
[2023-11-08 21:30] VITALS: BP 125/74; PULSE 74; RESP 20; TEMP 36.7; O2SAT 99
== END 2023-11-08 21:31 | disposition home or self-care (01) ==
PROVIDERS: Emergency Provider Emergency Medicine Emergency Medical Services
DX: M25.511 Pain in right shoulder (principal); S20.211A Contusion of right front wall of thorax, initial encounter; W19.XXXA Unspecified fall, initial encounter
CPT/HCPCS: 71101; 73030; 99283; 99284

== ENCOUNTER 2023-12-27 20:31 | Emergency (ER) | payer OTHER, SELFPAY ==
[2023-12-27 20:33] VITALS: BP 147/99; PULSE 78; RESP 18; TEMP 36.1; O2SAT 96; BMI 29.3
--- NOTE | 2023-12-27 20:46 | ED_ITS ---
HPI - General Adult General Chief complaint: Neck Injury/Pain Stated complaint: neck pain Time Seen by Provider: 12/27/23 20:38 History of Present Illness HPI narrative: pt has had neck pain for 2 days. Pain increases when moving left. Moving down and up is the worst. Patient has pain on left side. Had had 2 neck surgeries to remove abscesses, back in 2017. Pain rated 8/10 . Pt has Toradol at home , has taken one tablet at 4pm. Tylenol this morning 0430 two pills, Advil at 0800 two pills 53-year-old man presenting to the emergency department with complaint of neck pain. Particularly bad when he rotates his head or flexes neck to the left. Hurts also to the right. Underlying history of surgeries for cervical abscesses in 2017. He is worried about recurrence. Has not had fever. No trauma. He actually woke 2 days ago with this pain. Is not having significant radicular symptoms other than pain into the muscles around the shoulder. Has tried Toradol and ibuprofen and acetaminophen and cold and warm packs maybe even lidocaine patch without relief. Related Data Home Medications ?Medication ?Instructions ?Recorded ?Confirmed allopurinol 100 mg tablet 100 mg PO BID 12/27/22 11/08/23 amlodipine 10 mg tablet 10 mg PO DAILY 12/27/22 11/08/23 atorvastatin 20 mg tablet 20 mg PO DAILY 12/27/22 11/08/23 bupropion HCl 150 mg 24 hr tablet, 150 mg PO QAM 12/27/22 11/08/23 extended release clonidine HCl 0.1 mg tablet 0.1 mg PO BID 12/27/22 11/08/23 empagliflozin 25 mg tablet 25 mg PO QAM 12/27/22 11/08/23 (Jardiance) gabapentin 300 mg capsule 300 mg PO TID 12/27/22 11/08/23 insulin glargine 100 unit/mL 18 unit subcut QPM 12/27/22 11/08/23 subcutaneous solution (Lantus U-100 Insulin) labetalol 200 mg tablet 200 mg PO BID 12/27/22 11/08/23 lisinopril 40 mg tablet 40 mg PO DAILY 12/27/22 11/08/23 meloxicam 15 mg tablet 15 mg PO DAILY 12/27/22 11/08/23 metformin 500 mg tablet,extended 1,000 mg PO BID 12/27/22 11/08/23 release 24 hr pantoprazole 40 mg tablet,delayed 40 mg PO Q12H 12/27/22 11/08/23 release Previous Rx's ?Medication ?Instructions ?Recorded furosemide 40 mg tablet (Lasix) 40 mg PO BID #14 tabs 01/03/23 cyclobenzaprine 10 mg tablet 10 mg PO TID PRN muscle tension 12/27/23 #15 tabs prednisone 20 mg tablet 40 mg (2 x 20 mg) PO DAILY 5 days 12/27/23 #10 tabs Allergies Allergy/AdvReac Type Severity Reaction Status Date / Time coconut Allergy Mild Hives Verified 11/08/23 20:20 morphine Allergy Mild Hives Verified 11/08/23 20:20 Sulfa (Sulfonamide Allergy Mild Hives Verified 11/08/23 20:20 Antibiotics) Review of Systems Status of ROS: Reports: 6 or more systems reviewed and unremarkable except as noted in History and below [facility] Social History Smoking Status: Former smoker Second hand tobacco smoke exposure: No How often do you have a drink containing alcohol: never How often do you have six or more drinks on one occasion: Never AUDIT-C Alcohol total score: 0 Non-prescribed substance use: denies use Exam Narrative: Exam Narrative: Pleasant. Talkative. Tall larger man. Seems uncomfortable. Moving all extremities without notable difficulty. Well-perfused peripherally. Head is atraumatic. Postoperative scars are evident in the posterior neck. No swelling or inflammation. He is quite tense in the left greater than right trapezial musculature and paracervical musculature. Demonstrates area of pain in the lateral neck musculature in particular. No swelling/pulsatile swellings noted. Rather limited rotation to the left with his neck versus the right. No midline neck tenderness. Const: Vital Signs, click to edit/add: Vital Signs - 24 hr 12/27/23 20:33 Temperature 97.0 F L Pulse Rate [Left P ulse Oximeter] 78 Respiratory Rate 18 Blood Pressure [Ri ght Upper Arm] 147/99 H Pulse Oximetry 96 Oxygen Delivery Me thod Room Air Documenting provider has reviewed patient's vital signs: yes Course Vital Signs Vital signs: Initial Vital Signs Temperature 97.0 F L 12/27/23 20:33 Temperature Source Temporal Artery Scan 12/27/23 20:33 Pulse Rate 78 12/27/23 20:33 Pulse Rhythm Regular 12/27/23 20:33 Pulse Strength 2+ Slightly Diminished 12/27/23 20:33 Respiratory Rate 18 12/27/23 20:33 Blood Pressure 147/99 H 12/27/23 20:33 Blood Pressure Mean 115 H 12/27/23 20:33 Blood Pressure Position Sitting 12/27/23 20:33 Pulse Oximetry 96 12/27/23 20:33 Oxygen Delivery Method Room Air 12/27/23 20:33 Vital Signs Temperature 97.0 F L 12/27/23 20:33 Pulse Rate 78 12/27/23 20:33 Respiratory Rate 18 12/27/23 20:33 Blood Pressure 147/99 H 12/27/23 20:33 Pulse Oximetry 96 12/27/23 20:33 Oxygen Delivery Method Room Air 12/27/23 20:33 Temperature 97.0 F L 12/27/23 20:33 Pulse Rate 78 12/27/23 20:33 Respiratory Rate 18 12/27/23 20:33 Blood Pressure 147/99 H 12/27/23 20:33 Pulse Oximetry 96 12/27/23 20:33 Oxygen Delivery Method Room Air 12/27/23 20:33 Medical Decision Making MDM Narrative Medical decision making narrative: Discussed a variety of options for treatment. I would suspect facet irritation/inflammation with resulting muscle tension/spasm. 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 Might need physical therapy. I did offer temporary relief with some long-acting anesthetic injections into the musculature. We discussed also various options for pain management. Placed soft collar to help with relaxation. Ultimately decided he would go ahead with some temporary relief. Hopefully this would allow relaxation and more movement of the neck. I do not see evidence otherwise of an infectious process here. No evidence of cellulitis. When return to discuss final plans Mr. Carter looked left rotated left to me and felt a click in his neck and marked improvement in his symptoms. Clearly have was able to demonstrate much more movement in his neck. No further intervention in the emergency department appear necessary. This was an atraumatic happening. See patient discharge plan for further discussion Medical Records Medical records reviewed: Yes I reviewed the patient's medical records Discharge Plan Discharge Clinical Impression: Cervicalgia Patient Disposition: Home, Self-Care Condition: Improved Additional Instructions: Very happy you are feeling better. Where this soft collar for comfort over this next week. See handout for ideas of stretches for the upper back in addition to the neck pull-down exercises as demonstrated. Can do these a few times daily. In you job would be a good idea to maintain a strong back/upper back and good posture. Sending in Flexeril (cyclobenzaprine) and prednisone should you choose to take it. Going forward, I wonder if it might be helpful for you to get a good TENS unit Prescriptions: New prednisone 20 mg tablet 40 mg PO DAILY 5 Days Qty: 10 1RF cyclobenzaprine 10 mg tablet 10 mg PO TID PRN (Reason: muscle tension) Qty: 15 1RF No Action clonidine HCl 0.1 mg tablet 0.1 mg PO BID atorvastatin 20 mg tablet 20 mg PO DAILY labetalol 200 mg tablet 200 mg PO BID insulin glargine [Lantus U-100 Insulin] 100 unit/mL solution 18 unit subcut QPM meloxicam 15 mg tablet 15 mg PO DAILY allopurinol 100 mg tablet 100 mg PO BID amlodipine 10 mg tablet 10 mg PO DAILY pantoprazole 40 mg tablet,delayed release (DR/EC) 40 mg PO Q12H gabapentin 300 mg capsule 300 mg PO TID Rx Instructions: TAKE 1 CAPSULE BY MOUTH IN THE MORNING, 2 CAPSULES IN THE AFTERNOON, AND 3 CAPSULES AT BEDTIME lisinopril 40 mg tablet 40 mg PO DAILY metformin 500 mg tablet extended release 24 hr 1,000 mg PO BID bupropion HCl 150 mg tablet extended release 24 hr 150 mg PO QAM Jardiance 25 mg tablet 25 mg PO QAM furosemide [Lasix] 40 mg tablet 40 mg PO BID Qty: 14 0RF Follow Up/Referrals: Provider,Not a Local [Primary Care Provider] - Stand Alone Forms: Coffee and [employer] Info Instructions
--- OUTSIDE RECORDS SUMMARY | 2023-12-27 21:35 | XMS_ITS | Referral Summary ---
Author Organization [facility] Address [address] [place] [address] Care Team Providers Care Guest Services Attendant Name Role Phone Silvia Robison M.D. Primary Care Provider Source Comments Patient records contain information from all sites at [facility]. For routine questions regarding patient records, call [phone] during business hours, M-F 8:00 AM - 5:00 PM Central Time. Record requests for emergency care only can be directed to [phone] at any time.[facility] Encounters Date Type Department Care Team Description 12/27/2023 Clinical Communication Department of Family Medicine, [facility], in [place], [place] [address] [phone] Silvia Robison M.D. Med Question 12/26/2023 Orders Only Department of Family Medicine, [facility], in [place], [place] [address] [phone] Ruchi Sharma M.D. Diabetes Mellitus Type 2 Hyperglycemia (HCC) 12/26/2023 Clinical Communication Department of Family Medicine, [facility], in [place], [place] [address] [place] [phone] Silvia Robison M.D. Med Question 12/19/2023 Clinical Communication Department of Occupational Medicine in [place], [place] [facility] [place] [address] Flaca Franco P.A.-C., P.A., M.S. 12/19/2023 2:06 PM CDT - 12/19/2023 11:59 PM CDT Hospital Encounter Department of Laboratory Medicine in [place], [place] [address] [place] [address] Silvia Robison M.D. Kidney And Ureter Disorder; Lesion Kidney Discharge Disposition: Home or Self Care 12/19/2023 1:57 PM CDT - 12/19/2023 2:05 PM CDT Hospital Encounter Department of Laboratory Medicine in [place], [place] [address] [place] [phone] Silvia Robison M.D. Hyperlipidemia On Treatment; Hypertension Essential Primary; Kidney And Ureter Disorder; Lesion Kidney; Dysfunction Erectile; Diabetes Mellitus Type 2 Hyperglycemia (HCC) Discharge Disposition: Home or Self Care 12/17/2023 Orders Only [facility] SELF TEST [facility] [address] [place] [phone] Silvia Robison M.D. Screening Cancer Colon 12/03/2023 Orders Only [facility] SELF TEST [facility] [address] [place] [phone] Silvia Robison M.D. Screening Cancer Colon 11/16/2023 12:18 PM CDT - 11/16/2023 12:39 PM CDT Emergency [facility] [address] [place] [address] Splenomegaly Acquired (Primary Dx) Discharge Disposition: Home or Self Care 11/07/2023 Refill Department of Family Medicine, [facility], in [place], [place] [address] [place] [address] Silvia Robison M.D. Med Refill 10/09/2023 Refill Department of Family Medicine, [facility], in [place], [place] [address] [place] [address] Silvia Robison M.D. Med Refill from Last 3 Months Allergies Active Allergy [...] mg in 24 hours from all sources. 06/07/19 18 Active sodium chloride (SALINE NASAL MIST NASAL) Administer into nostril(s) daily as needed. For nasal congestion Active blood-glucose meter misc Test as directed for diabetes control. 1 each 11/25/19 21 Active blood sugar diagnostic strips 2 test daily. 200 test 3 10/13/19 23 Active pantoprazole (PROTONIX) 40 mg EC tablet Take 1 tablet (40 mg total) by mouth 2 (two) times a day before breakfast and dinner. 180 tablet 3 11/20/19 23 Active meloxicam (MOBIC) 15 mg tabletIndications :Pain Back,Pain Leg Right Take 1 tablet (15 mg total) by mouth daily. 90 tablet 3 11/20/19 23 Active chlorhexidine (PERIDEX) 0.12 % mouthwash Swish and spit 15 mL 2 (two) times a day. Swish and spit 15 mL 2 (two) times a day 473 mL 03/12/20 23 Active mometasone (NASONEX) 50 mcg/actuation nasal sprayIndications: Allergy Seasonal Administer 2 sprays into each nostril daily. 17 g 5 03/15/20 23 024 Active gabapentin (NEURONTIN) 300 mg capsuleIndication s:Neuropathy TAKE 1 CAPSULE BY MOUTH IN THE MORNING, 2 CAPSULES IN THE AFTERNOON, AND 3 CAPSULES AT BEDTIME. 270 capsule 05/10/19 24 Active allopurinoL (Zyloprim) 100 mg tablet Take 1 tablet by mouth twice daily 180 tablet 3 11/08/19 24 Active amLODIPine (Norvasc) 10 mg tablet Take 1 tablet by mouth once daily 90 tablet 3 11/08/19 24 Active atorvastatin (Lipitor) 20 mg tablet Take 1 tablet by mouth once daily 90 tablet 3 11/08/19 24 Active buPROPion XL (Wellbutrin XL) 150 mg 24 hr tablet take 1 tablet by mouth once daily in the morning 90 tablet 3 11/08/19 24 Active cloNIDine (Catapres) 0.1 mg tablet Take 1 tablet by mouth twice daily 180 tablet 3 11/08/19 24 Active labetaloL 200 mg tablet Take 1 tablet by mouth twice daily 180 tablet 11/08/19 24 Active lisinopriL 40 mg tablet Take 1 tablet by mouth once daily 90 tablet 11/08/19 24 Active metFORMIN XR (Glucophage-XR) 500 mg 24 hr tablet Take 2 tablets by mouth twice daily 360 tablet 11/08/19 24 Active glipiZIDE (GlucotroL) 5 mg tabletIndications :Diabetes Mellitus Type 2 Hyperglycemia (HCC) Take 1 tablet (5 mg total) by mouth 2 (two) times a day before morning and evening meals. 60 tablet 3 12/26/19 24 Active insulin glargine (Lantus U-100 Insulin) 100 unit/mL vialIndications:D iabetes Mellitus Type 2 Hyperglycemia (HCC) Inject 33 Units under the skin at bedtime. Inject 25 mg daily subcutaneously. 18 mL 3 12/26/19 24 Active BD Veo Insulin Syringe UF 0.3 mL 31 gauge x 15/64 syringe USE ONCE DAILY 100 each 08/25/19 024 Discontinued empagliflozin (Jardiance) 25 mg tabletIndications :Diabetes Mellitus Type 2 Hyperglycemia (HCC) Take 1 tablet (25 mg total) by mouth every morning before breakfast. 90 tablet 3 11/20/19 23 024 Discontinued furosemide (LASIX) 20 mg tablet Take 1 tablet (20 mg total) by mouth daily. 30 tablet 01/15/20 23 024 Discontinued avanafiL 50 mg tabletIndications :Dysfunction Erectile Take 1 tablets as needed for erectile dysfunction. If blood pressure is not low can take an additional pill 30 tablet 3 03/15/20 23 024 Discontinued insulin glargine (Lantus U-100 Insulin) 100 unit/mL injectionIndicati ons:Diabetes Mellitus Type 2 Hyperglycemia (HCC) Inject 20 mg daily subcutaneously. 18 mL 3 10/16/19 24 024 Discontinued(Re order) insulin glargine (Lantus U-100 Insulin) 100 unit/mL vialIndications:D iabetes Mellitus Type 2 Hyperglycemia (HCC) Inject 25 Units under the skin at bedtime. Inject 25 mg daily subcutaneously. 18 mL 3 12/26/19 24 024 Discontinued(Re order) Active Problems Problem Noted Date Diagnosed Date Albuminuria 09/07/2022 Dizziness 06/22/2022 Overview (06/22/2022): Being worked up by HTN clinic. Recommended autonomic screening. Patient has not scheduled yet Elevated Liver Enzyme Test 05/17/2022 Overview (05/17/2022): -noted on previous lab draws versus dating back to 2019 Assessment & Plan (05/17/2022 5:03 PM MERCHANDISE DIRECTOR): -continue to monitor. -consider liver ultrasound to assess for nonalcoholic fatty liver disease -consider viral hepatitis panel Hypertensive Chronic Kidney Disease With Stage 1 Through Stage 4 Chronic Kidney Disease, Or Unspecified Chronic Kidney Disease 05/17/2022 Overview (05/17/2022): 02/2021: Average blood pressure was elevated with [...] mg -Cannot tolerate HCTZ due to gout Assessment & Plan (05/17/2022 4:58 PM MERCHANDISE DIRECTOR): -Blood pressures in clinic were at goal today -Continue to monitor. Depressive Disorder 05/17/2022 Overview (05/17/2022): 22 April 2022: PHQ = 24 -patient tells me he has previously been on Paxil, lithium, Trileptal and was diagnosed with bipolar in [place]. -many acute stressors such as needing to find new housing, financial stress, and employment stress. Assessment & Plan (05/17/2022 5:16 PM MERCHANDISE DIRECTOR): -increase Wellbutrin that was previously prescribed for smoking cessation from 150 mg daily to 300 mg daily. -PHQ findings were inconsistent with physical exam (MSE); continue to assess mood have follow-up appointments. -social work consult to help with housing. -Consider SSRI at future visits Hyperlipidemia 08/26/2020 Overview (05/17/2022): Goal LDL < 70. Has been prescribed Lipitor 20 mg daily. Sinusitis Chronic 07/20/2020 Overview (05/17/2022): -Currently on Fluticasone nasal Assessment & Plan (05/17/2022 5:05 PM MERCHANDISE DIRECTOR): -Will obtain more history at next visit -Consider ENT referral/ CT sinus/maxillofacial Nicotine Dependence Cigarettes In Remission 06/22 Overview (05/17/2022): -Quit smoking 2020 -On Wellbutrin - still smokes but she is involved at Nicotine dependency clinic Assessment & Plan (05/17/2022 4:49 PM MERCHANDISE DIRECTOR): -Increase Wellbutrin from 150 to 300 in the setting of PHQ of 24 Lesion Kidney 07/20/2020 Overview (06/26/2022): Ultrasound 07/20/20: 1.2 cm solid exophytic vascular [...] Urology to consider cryoablation of the mass. Assessment & Plan (05/17/2022 4:57 PM MERCHANDISE DIRECTOR): -At one of his emergency department visits they wanted follow up with urology. -He will schedule this appointment today. If he is lost to follow up, consider Econsult. Morbid Obesity Body Mass Ind ex >= 35 with Comorbid Condition 04/18/2020 Overview (05/17/2022): Baseline BMI > 37, medically complicated by hypertension, diabetes mellitus, hyperlipidemia. Gout 10/15/2019 Overview (10/27/2020): Allopurinol 100 mg twice daily 10/27/2020 Discussed [...] it was 9.0) Gastroesophageal Reflux Disease 09/23/2017 Overview (05/17/2022): Protonix 40 b.i.d. PPIs started in 2017 Assessment & Plan (05/17/2022 4:55 PM MERCHANDISE DIRECTOR): -Continue protonix 40mg BID -At next appointment EGD with biopsy to assess for H pylori -I do wonder there is a component of diabetic gastroparesis playing into symptoms given history of improvement with Reglan Dysfunction Erectile 09/23/2017 Overview (05/17/2022): Previously on Viagra and Cialis. Neuropathy Median Left Overview (07/20/2020): Gabapentin 300 am, 600 pm, 900 HS Meloxicam 15 mg Diabetes Mellitus Type 2 Hyperglycemia Overview (06/22/2022): Currently on Metformin 1 g twice daily [...] Disorder 05/24/2021 05/17/19 23 Nephrolithiasis 07/15/2019 06/22/2022 Overview (07/15/2019): Added automatically from request for surgery [id number] Pain Hand Left 09/24/2017 07/20/2020 Hypertension Essential Primary 09/23/2017 05/17/2022 Overview (05/17/2022): 02/2021: Average blood pressure was elevated with [...] clonidine 0.1 mg bid, amlodipine 10 mg Assessment & Plan (05/17/2022 4:49 PM MERCHANDISE DIRECTOR): Blood pressure in clinic is well controled today. Continue current management. Carpal Tunnel Syndrome Left 06/18/2017 05/17/2022 Overview (05/17/2022): S/p release in 2018 Limitation Of Motion [...] drink = 0.6 oz pur e alcohol) [facility] Utilities Answer Date Recorded In the past 12 months has e [employer], gas, oil, or water [employer] threatened to shut off services in your [...] often do you attend chur ch or hindu services? Never 06/22/2022 Do you belong to any clubs o r organizations such as christian groups, unions, fraternal or athletic groups, or [...] Answer Date Recorded PHQ-2 Score 2 10/09/2023 [facility] [place] [facility] - Occupational Stress [...] your living situation today? I have a [facility] place to live 10/12/2023 Education Answer Date Recorded What is the highest level of school you have completed or the highest degree you have received? 12th grade 05/19/2019 Sex and Gender Information Value Date Recorded Sex Assigned at Male 08/16/2019 8:50 PM CDT Gender Identity Male 05/21/2020 12:19 PM MERCHANDISE DIRECTOR Sexual Orientation Straight 07/10/2017 5: 27 PM CDT Job Start Date Occupation Industry Not on file Not on file Not on file Last Filed Vital Signs Vital Sign Reading Time Taken Comments Blood Pressure 118/81 06/21/2023 10:51 AM MERCHANDISE DIRECTOR Pulse 83 06/21/2023 10:51 AM MERCHANDISE DIRECTOR Temperature 36.1 ??C (96.9 ??F) 03/15/2023 11:[address] Respiratory Rate 18 06/16/2022 4:23 PM MERCHANDISE DIRECTOR Oxygen Saturation 97% 06/16/2022 6:15 PM MERCHANDISE DIRECTOR Inhaled Oxygen Concentration - - Weight 126 kg (277 lb 1.9 oz) 06/21/2023 10:51 A M MERCHANDISE DIRECTOR Height 196 cm (6' 5.17) 06/21/2023 10:51 AM MERCHANDISE DIRECTOR Body Mass Index 32.72 06/21/2023 10:51 AM MERCHANDISE DIRECTOR Plan of Treatment Upcoming Encounters Date Type Department Care Team (Late st Contact Info) Description 01/07/2024 1:00 PM CDT Comprehensive Visit Department of Family Medicine, [facility], in [place], [place] [address] [place] [phone] Yazmin Rivas APRN, C.N.P., D.N.P. [address] [place] [address] Medical Devices Implanted Type Area Otr Company Truck Driver Device Identifier Shelf Expiration Date Model / Serial / Lot Chips Cancellous 5cc - Luke [id number] Implanted:Qty: 1 on 06/07/2017 Bone or Tissue Other/Legacy - See Implant Description [employer] Description:Device Manufactu rer - [employer]. Body Location - Other. bone for packing defect. Device Status Text - [id number]. Peg Smooth 2.0mm X 18mm Long - Luke [id number] Implanted:Qty: 3 on 06/07/2017 Hardware e.g. pins/screws /rods BioMet Description:Device Manufactu rer - [employer]. Device Status Text - [id number]. Peg Smooth 2.0mm X 20mm Long - Luke [id number] Implanted:Qty: 2 on 06/07/2017 Hardware e.g. pins/screws /rods [employer] Description:Device Manufactu rer - [employer]. Device Status Text - [id number]. Screw-Cortical 3.5mm X 14mm Long - Luke [id number] Implanted:Qty: 3 on 06/07/2017 Hardware e.g. pins/screws /rods BioMet Description:Device Manufactu rer - [employer]. Device Status Text - [id number]. Plate-Distal Volar Lt Short - Luke [id number] Implanted:Qty: 1 on 06/07/2017 Hardware e.g. pins/screws /rods [employer] Description:Device Manufactu rer - [employer]. Device Status Text - [id number]. Screw-Cortical 3.5mm X 15mm Long - Luke [id number] Implanted:Qty: 2 on 06/07/2017 Hardware e.g. pins/screws /rods [employer] Description:Device Manufactu rer - [employer]. Device Status Text - [id number]. Peg Threaded 2.5mm X 20mm Long - Luke [id number] Implanted:Qty: 1 on 06/07/2017 Hardware e.g. pins/screws /rods [employer] Description:Device Manufactu rer - [employer]. Device Status Text - [id number]. Peg Smooth 2.0mm X 22mm Long - Luke [id number] Implanted:Qty: 1 on 06/07/2017 Hardware e.g. pins/screws /rods [employer] Description:Device Manufactu rer - [employer]. Device Status Text - [id number]. Explanted Type Area Otr Company Truck Driver Device Identifier Shelf Expiration Date Model / Serial / Lot Stnt Uret Inl [id number] - [id number] Implanted:Qty : 1 on 07/15/2019 by Terry Girard M.D. at [facility] Ureteral Stent [employer]ard [id number] 05/01/2023 [id number] / / [id number] Procedures Procedure Name Priority Date/Time Associated Diagnosis Comments HEMOGLOBIN A1C, B Routine 12/19/2023 2:41 PM CDT Diabetes Mellitus Type 2 Hyperglycemia (HCC) CBC WITHOUT DIFFERENTIAL, B Routine 12/19/2023 2:41 PM CDT Dysfunction Erectile LIPID PANEL, S Routine 12/19/2023 2:41 PM CDT Dysfunction Erectile ALKALINE PHOSPHATASE, S/P Routine 12/19/2023 2:41 PM CDT Kidney And Ureter Disorder Lesion Kidney ALANINE AMINOTRANSFERASE (ALT), S/P Routine 12/19/2023 2:41 PM CDT Kidney And Ureter Disorder Lesion Kidney ASPARTATE AMINOTRANSFERASE (AST), S/P Routine 12/19/2023 2:41 PM CDT Kidney And Ureter Disorder Lesion Kidney BICARBONATE, B/S/P Routine 12/19/2023 2:41 PM CDT Kidney And Ureter Disorder Lesion Kidney BUN (BLOOD UREA NITROGEN), S/P Routine 12/19/2023 2:41 PM CDT Kidney And Ureter Disorder Lesion Kidney CALCIUM, TOT, S/P Routine 12/19/2023 2:41 PM CDT Kidney And Ureter Disorder Lesion Kidney CHLORIDE, S/P Routine 12/19/2023 2:41 PM CDT Kidney And Ureter Disorder Lesion Kidney CREATININE WITH EGFR, S/P Routine 12/19/2023 2:41 PM CDT Kidney And Ureter Disorder Lesion Kidney SODIUM, S/P Routine 12/19/2023 2:41 PM CDT Kidney And Ureter Disorder Lesion Kidney POTASSIUM, S/P Routine 12/19/2023 2:41 PM CDT Kidney And Ureter Disorder Lesion Kidney VITAMIN B12 ASSAY, S Routine 12/19/2023 2:41 PM CDT Hypertension Essential Primary THYROID FUNCTION CASCADE, S Routine 12/19/2023 2:41 PM CDT Hyperlipidemia On Treatment URINALYSIS WITH MICROSCOPIC Routine 12/19/2023 2:28 PM CDT Kidney And Ureter Disorder Lesion Kidney DX CHEST PORTABLE 1 VIEW RAD - Semiurgent (Fast; most ED patients; some inpatients) 11/16/2023 3:[address] ABDOMEN PELVIS WITH IV CONTRAST RAD - Semiurgent (Fast; most ED patients; some inpatients) 11/16/2023 2:40 PM CDT ALBUMIN, RANDOM, U Routine 03/15/2023 10:57 AM MERCHANDISE DIRECTOR Diabetes Mellitus Type 2 Hyperglycemia (HCC) from Last 3 Months or Most Recently Relevant to Health Maintenance Results * (ABNORMAL) Lipid Panel (12/19/2023 2:41 PM CDT) Triglycerides 420(H) mg/dL 12/19/2023 3:19 PM CDT OWAT Comment: ----REFERENCE VALUE---- Normal: <150 mg/dL Borderline High: 150-199 mg/dL High: 200-499 mg/dL Very High: > or =500 mg/dL Cholesterol, Total 128 mg/dL 2023 3:19 PM CDT OWAT Comment: ----REFERENCE VALUE---- Desirable: < 200 mg/dL Borderline High: 200 - 239 mg/dL High: > or = 240 mg/dL Cholesterol, LDL, Calculated 38 mg/dL 12/19/2023 3:19 PM CDT OW[facility] Comment: ----REFERENCE VALUE---- Desirable: <100 mg/dL Above Desirable: 100-129 mg/dL Borderline High: 130-159 mg/dL High: 160-189 mg/dL Very High: >=190 mg/dL ----ADDITIONAL INFORMATION---- LDL cholesterol calculated using the Zepeda/NIH equation. Cholesterol, HDL 29(L) >=40 mg/dL 12/19/19 3:19 PM CDT [facility] Cholesterol, Non-HDL, Calculated 99 mg/dL 12/19/2023 3:19 PM CDT OW[facility] Comment: ----REFERENCE VALUE---- Desirable: <130 mg/dL Above Desirable: 130-159 mg/dL Borderline High: 160-189 mg/dL High: 190-219 mg/dL Very High: > or =220 mg/dL Fasting (8 HR or more) No 12/19/2023 2:41 PM CDT [facility] Blood (Blood, Venous) 12/19/2023 2:41 PM CDT 12/19/2023 2:42 PM CDT Silvia Robison M.D. LAB BLOOD ADD-O N [facility] [address] [place] [address], [place] [facility] [place] [address] [place] [address] * Thyroid Function [place] (12/19/2023 2:41 PM CDT) TSH, Sensitive 1.1 0.3 - 4.2 mIU/L 12/19/2023 4:14 PM CDT [facility] Blood (Blood, Venous) 12/19/2023 2:41 PM CDT 12/19/2023 2:42 PM CDT Silvia Robison M.D. LAB BLOOD ADD-O N Performing Organization Address [facility]/ZIP Co de Phone Number [facility] [address] [place] [address], [facility] [place] [address] [place] [address] * (ABNORMAL) CBC without Differential (12/19/2023 2:41 PM CDT) Pathologist [facility] Hemoglobin 14.4 13.2 - 16.6 g/dL 12/19/2023 2:52 PM CDT OW[facility] Hematocrit 42.2 38.3 - 48.6 % 12/19/2023 2:52 PM CDT OW[facility] Erythrocytes 4.76 4.35 - 5.65 x10(12)/L 12/19/2023 2:52 PM CDT [facility] MCV 88.7 78.2 - 97.9 fL 12/19/2023 2:52 PM CDT [facility] RBC Distrib Width 13.3 11.8 - 14.5 % 12/19/2023 2:52 PM CDT OW[facility] Platelet Count 232 135 - 317 x10(9)/L 12/19/2023 2:52 PM CDT OW[facility] Leukocytes 10.7(H) 3.4 - 9.6 x10(9)/L 12/19/2023 2:52 PM CDT OW[facility] Blood (Blood, Venous) 12/19/2023 2:41 PM CDT 12/19/2023 2:42 PM CDT Silvia Robison M.D. LAB BLOOD ADD-O N [facility] [address] [place] [address], [place] [facility] [facility] [place] [address] [place] [address] * BUN (Blood Urea Nitrogen) (12/19/2023 2:41 PM CDT) BUN (Blood Urea Nitrogen), P 14 8 - 24 mg/dL 12/19/2023 3:19 PM CDT OWAT Blood (Blood, Venous) 12/19/2023 2:41 PM CDT 12/19/2023 2:42 PM CDT Silvia Robison M.D. LAB BLOOD ADD-O N Performing Organization Address City/[facility]/ZIP Co de Phone Number [facility] [address] [place] [address], [place] OW[place] [facility] [place] [address] [place] [address] * ALT (Alanine Aminotransferase) (12/19/2023 2:41 PM CDT) Alanine Aminotransferase (ALT), P 39 7 - 55 U/L 12/19/2023 3:19 PM CDT OWAT Blood (Blood, Venous) 12/19/2023 2:41 PM CDT 12/19/2023 2:42 PM CDT Silvia Robison M.D. LAB BLOOD ADD-O N Performing Organization Address City/[facility]/ZIP Co de Phone Number [facility] [address] [place] [address], [place] AT [facility] [place] [address] [place] [address] * AST (Aspartate Aminotransferase) (12/19/2023 2:41 PM CDT) Aspartate Aminotransferase (AST), P 38 8 - 48 U/L 12/19/2023 3:19 PM CDT OWAT Blood (Blood, Venous) 12/19/2023 2:41 PM CDT 12/19/2023 2:42 PM CDT Silvia Robison M.D. LAB BLOOD ADD-O N Performing Organization Address City/[facility]/ZIP Co de Phone Number [facility] [address] [place] [address], [place] OW[place] [facility] [place] [address] [place] [address] * Sodium (12/19/2023 2:41 PM CDT) Sodium, P 135 135 - 145 mmol/L 12/19/2023 3:19 PM CDT OW[facility] Blood (Blood, Venous) 12/19/2023 2:41 PM CDT 12/19/2023 2:42 PM CDT Silvia Robison M.D. LAB BLOOD ADD-O N Performing Organization Address [facility]/ZIP Co de Phone Number [facility] [address] [place] [address], [place] OW[place] [facility] [place] [address] [place] [address] * Potassium (12/19/2023 2:41 PM CDT) Potassium, P 4.5 3.6 - 5.2 mmol/L 12/19/2023 3:19 PM CDT [facility] Blood (Blood, Venous) 12/19/2023 2:41 PM CDT 12/19/2023 2:42 PM CDT Silvia Robison M.D. [facility] [address] [place] [address], [place] OW[place] [facility] [place] [address] [place] [address] * (ABNORMAL) Alkaline Phosphatase (12/19/2023 2:41 PM CDT) Alkaline Phosphatase, P 132(H) 40 - 129 U/L 12/19/2023 3:19 PM CDT OW[facility] Blood (Blood, Venous) 12/19/2023 2:41 PM CDT 12/19/2023 2:42 PM CDT Silvia Robison M.D. LAB BLOOD ADD-O N Performing Organization Address [facility] Co de Phone Number [facility] [address] [place] [address], [facility] [place] [address] [place] [address] * (ABNORMAL) Hemoglobin A1c (12/19/2023 2:41 PM CDT) Hemoglobin A1c, B 12.6(H) 4.2 - 5.6 % 12/20/2023 12:03 PM CDT OWAT Comment: Hemoglobin A1c values greater than or equal to 6.5 percent are diagnostic for diabetes mellitus. ??Diagnosis should be confirmed by repeat testing. ??In diabetic patients, HbA1c goals should be discussed with healthcare provider. Blood (Blood, Venous) 12/19/2023 2:41 PM CDT 12/20/2023 11:29 AM CDT Silvia Robison M.D. LAB BLOOD ADD-O N Performing Organization Address City/[facility]/ZIP Co de Phone Number [facility] [address] [place] [address], [place] OW[place] [facility] [place] [address] [place] [address] * Vitamin B12 Assay (12/19/2023 2:41 PM CDT) Vitamin B12 Assay, S 369 232 - 1245 ng/L 12/19/2023 10:16 PM CDT [facility]UST Comment: Biotin has been identified by the occupational therapist assistant as a potential interfering substance. Higher concentrations of biotin may be found in multivitamins, hair/nail supplements, and workout supplements. If the result does not match clinical observations, repeat testing after patient refrains from the use of supplements for at least 12 hours. Blood (Blood, Venous) 12/19/2023 2:41 PM CDT 12/19/2023 9:38 PM CDT Silvia Robison M.D. LAB BLOOD ADD-O N Performing Organization Address [facility]/ZIP Co de Phone Number [facility] [address] [place] [address], [facility] [address] [place] [address] * Creatinine with Estimated GFR (12/19/2023 2:41 PM CDT) Creatinine 1.05 0.74 - 1.35 mg/dL 12/19/2023 3:19 PM CDT OW[facility] Estimated GFR (eGFR) 86 >=60 mL/min/BSA 12/19/2023 3:19 PM CDT OW[facility] Comment: Estimated GFR calculated using the 2020 CKD_EPI creatinine equation. Blood (Blood, Venous) 12/19/2023 2:41 PM CDT 12/19/2023 2:42 PM CDT Silvia Robison M.D. LAB BLOOD ADD-O N Performing Organization Address [facility]/ZIP Co de Phone Number [facility] [address] [place] [address], [place] OWAT [facility] [address] [place] [address] * Chloride (12/19/2023 2:41 PM CDT) Chloride, P 99 98 - 107 mmol/L 12/19/2023 3:19 PM CDT OWAT Blood (Blood, Venous) 12/19/2023 2:41 PM CDT 12/19/2023 2:42 PM CDT Silvia Robison M.D. LAB BLOOD ADD-O N Performing Organization Address City/[facility]/ZIP Co de Phone Number [facility] [address] [place] [address], [facility] OWAT [facility] [place] [address] [place] [address] * (ABNORMAL) Bicarbonate (12/19/2023 2:41 PM CDT) Bicarbonate, P 17(L) 22 - 29 mmol/L 12/19/2023 3:19 PM CDT OWAT Blood (Blood, Venous) 12/19/2023 2:41 PM CDT 12/19/2023 2:42 PM CDT Silvia Robison M.D. LAB BLOOD ADD-O N Performing Organization Address [facility] Co de Phone Number [facility] [address] [place] [address], [place] OW[place] [facility] [place] [address] [place] [address] * Calcium, Total (12/19/2023 2:41 PM CDT) Calcium, Total, P 9.6 8.6 - 10.0 mg/dL 12/19/2023 3:19 PM CDT OWAT Blood (Blood, Venous) 12/19/2023 2:41 PM CDT 12/19/2023 2:42 PM CDT Silvia Robison M.D. LAB BLOOD ADD-O N Performing Organization Address City/[facility]/ZIP Co de Phone Number [facility] [address] [place] [address], [facility] OWAT [facility] [place] [address] [place] [address] * (ABNORMAL) Urinalysis, with Microscopic: Urine, Midstream (12/19/2023 2:28 PM CDT) Source Urine, Urine, Midstream 12/19/2023 2:54 PM CDT OWAT Clarity Clear Clear 12/19/2023 2:54 PM CDT OWAT Color Yellow 12/19/2023 2:54 PM CDT OWAT Comment: ----REFERENCE VALUE---- Colorless Yellow Jane Blood Negative Negative 12/19/2023 2:54 PM CDT OWAT Nitrite Negative Negative 12/19/2023 2:54 PM CDT OWAT Leukocyte Esterase Negative Negative 12/19/2023 2:54 PM CDT OWAT Protein Negative mg/dL 12/19/2023 2:54 PM CDT OWAT Comment: ----REFERENCE VALUE---- Negative Trace Glucose >=1000(A) Negative mg/dL 12/19/2023 2:54 PM CDT OWAT Ketone Negative Negative mg/dL 12/19/2023 2:54 PM CDT OWAT Bilirubin Negative Negative 12/19/2023 2:54 PM CDT OWAT pH 5.5 5.0 - 8.0 12/19/2023 2:54 PM CDT OWAT Specific [place] >1.035(A) 1.001 - 1.035 12/19/2023 2:54 PM CDT OWAT Urobilinogen 0.2 0.2 - 1.0 mg/dL 12/19/2023 2:54 PM CDT OWAT White Blood Cells None Seen /hpf 12/19/2023 2:56 PM CDT OWAT Comment: ----REFERENCE VALUE---- Males: 0-3 Females: 0-10 Unknown: 0-10 Red Blood Cells None Seen 0 - 2 /hpf 2:56 PM CDT OWAT Urine (Urine, Midstream) 12/19/2023 2:28 PM CDT 12/19/2023 2:49 PM CDT Silvia Robison M.D. LAB URINE ORDER GENIE [facility] [address] [place] [address], [facility] OWAT [facility] [place] [address] [place] [address] * DX Chest Portable 1 View (11/16/2023 3:05 PM CDT) Anatomical Region Laterality Modality Chest, Thoracic RST LOS, Tho racic ARZ LOS, Thoracic FLA LOS N/A Digital Radiography Impressions 11/16/2023 3:27 PM CDT Mild low lung volumes. No focal airspace opacity. Narrative 11/16/2023 3:27 PM CDT EXAM: DX CHEST PORTABLE 1 VIEW COMPARISON: Chest radiograph 03/01/2023 FINDINGS: Trachea is midline. Cardiac and mediastinal borders are clear. Cardiac silhouette is nonenlarged. No focal consolidation. No pleural effusion or pneumothorax. Mildly low lung volumes. No osseous abnormality. Procedure Note Shahid Kebede M.D. - 11/16/2023 EXAM: DX CHEST PORTABLE 1 VIEW COMPARISON: Chest radiograph 03/01/2023 FINDINGS: Trachea is midline. Cardiac and mediastinal borders are clear. Cardiacsilhouette is nonenlarged. No focal consolidation. No pleural effusion orpneumothorax. Mildly low lung volumes. No osseous abnormality. IMPRESSION: Mild low lung volumes. No focal airspace opacity. Marshal Hartman APRN, C.N.P., M.S.N. IMG DIAG NOSTIC IMAGING PROCEDURES * CT Abdomen Pelvis with IV Contrast (11/16/2023 2:40 PM CDT) Anatomical Region Laterality Modality Abdomen, Pelvis, Abdominal R ST LOS, Abdominal ARZ LOS, Abdominal FLA LOS N/A Computed Tomography 11/16/2023 2:34 PM CDT Impressions 11/16/2023 3:06 PM CDT 1. No acute finding in the abdomen or pelvis. 2. Cirrhotic liver morphology with splenomegaly. 3. Unchanged 8 mm exophytic lesion of the right kidney, remains concerning for primary neoplasm. Narrative 11/16/2023 3:06 PM CDT EXAM: CT ABDOMEN PELVIS WITH IV CONTRAST COMPARISON: CT abdomen pelvis 11/03/2022 FINDINGS: Lower chest: Mild bibasilar atelectasis. Liver: Hepatic steatosis. Nodular contour of the liver with hepatomegaly. No suspicious hepatic lesion. Gallbladder/bile ducts: The gallbladder is contracted. No cholelithiasis. No intrahepatic or extrahepatic biliary duct dilatation. Pancreas: Unremarkable Spleen: Splenomegaly measuring 16 cm. Adrenal glands: Unremarkable. Kidneys, ureters, bladder: Bilateral symmetrically enhancing kidneys. Unchanged partially exophytic 8 mm enhancing lesion of the anterior right lower pole (series 3 image 264). No hydronephrosis. No hydroureter. The bladder is unremarkable. GI tract, mesentery/peritoneum: The large and small bowel is normal in caliber. No abnormal bowel wall thickening. No abnormal bowel wall enhancement. Diverticulosis without evidence of diverticulitis. Normal appendix. Stomach is unremarkable. ??Stomach is unremarkable. Vasculature: The major arterial vessels off of the aorta are patent. The main portal vein is patent. No aortic aneurysmal dilation. Lymph Nodes: Mildly prominent periportal lymph node, otherwise no lymphadenopathy. Reproductive: Unremarkable. Bones/soft tissues: Degenerative changes of the lower lumbar spine most notably at L5-S1. Small fat-containing umbilical hernia. Procedure Note Shahdi Kebede M.D. - 11/16/2023 EXAM: CT ABDOMEN PELVIS WITH IV CONTRAST COMPARISON: CT abdomen pelvis 11/03/2022 FINDINGS: Lower chest: Mild bibasilar atelectasis. Liver: Hepatic steatosis. Nodular contour of the liver with hepatomegaly.No suspicious hepatic lesion. Gallbladder/bile ducts: The gallbladder is contracted. No cholelithiasis.No intrahepatic or extrahepatic biliary duct dilatation. Pancreas: Unremarkable Spleen: Splenomegaly measuring 16 cm. Adrenal glands: Unremarkable. Kidneys, ureters, bladder: Bilateral symmetrically enhancing kidneys.Unchanged partially exophytic 8 mm enhancing lesion of the anterior rightlower pole (series 3 image 264). No hydronephrosis. No hydroureter. Thebladder is unremarkable. GI tract, mesentery/peritoneum: The large and small bowel is normal incaliber. No abnormal bowel wall thickening. No abnormal bowel wallenhancement. Diverticulosis without evidence of diverticulitis. Normalappendix. Stomach is unremarkable. Stomach is unremarkable. Vasculature: The major arterial vessels off of the aorta are patent. Themain portal vein is patent. No aortic aneurysmal dilation. Lymph Nodes: Mildly prominent periportal lymph node, otherwise nolymphadenopathy. Reproductive: Unremarkable. Bones/soft tissues: Degenerative changes of the lower lumbar spine mostnotably at L5-S1. Small fat-containing umbilical hernia. IMPRESSION: 1. No acute finding in the abdomen or pelvis. 2. Cirrhotic liver morphology with splenomegaly. 3. Unchanged 8 mm exophytic lesion of the right kidney, remains concerningfor primary neoplasm. Marshal Hartman APRN, C.N.P., M.S.N. IMG CT P ROCEDURES * (ABNORMAL) Albumin, Random, Urine (03/15/2023 10:57 AM MERCHANDISE DIRECTOR) Microalbumin <12.0 mg/L 03/15/2023 1:54 PM MERCHANDISE DIRECTOR OWAT Comment:If clinically indica brianda, contact the lab for additional testing. Creatinine 53 mg/dL 03/15/2023 1:54 PM MERCHANDISE DIRECTOR OWAT Albumin/Creatinine Ratio <23(H) <17 mg/g 03/15/2023 1:54 PM MERCHANDISE DIRECTOR OWAT Comment: This ratio may not correspond with the reference range because one or both of the values used to calculate the ratio was above or below the quantification limits. Urine (Urine, Midstream) 03/15/2023 10:57 AM MERCHANDISE DIRECTOR 03/15/2023 11:39 AM MERCHANDISE DIRECTOR Silvia Robison M.D. LAB URINE ORDER GENIE [facility] [address] [place] [address], [facility] OWAT [facility] [place] [address] [place] [address] from Last 3 Months or Most Recently Relevant to Health Maintenance Advance Directives For more information, please contact: [phone] * Full Code (Latest Code Status on File) Date Activated Date Inactivated Comments 07/15/2019 10:35 AM 07/16/2019 1:23 PM Question Answer Comments Full Code: Discussed Care Teams Guest Services Attendant Relationship Specialty Start Date End Date Silvia Robison M.D. [address] [place] [address] PCP - General Family Medicine 10/03/23
--- OUTSIDE RECORDS SUMMARY | 2023-12-27 21:35 | XMS_ITS ---
Author Organization [facility] Address [address] [place] [address] Care Team Providers Care Manufacturing Coordinator Name Role Phone Unavailable Unavailable Unavailable Surgery Details Not on file Complications Check Surgery Details section. Procedure Estimated Blood Loss Check Surgery Details section. Procedure Findings Check Surgery Details section. Procedure Specimens Taken Check Surgery Details section.
--- OUTSIDE RECORDS SUMMARY | 2023-12-27 21:35 | XMS_ITS | Clinical Summary ---
Author Organization [facility] Address [address] [place] [address] Care Team Providers Care Waistline Joiner Lockstitch Name Role Phone Silvia Robison M.D. Primary Care Provider Source Comments Patient records contain information from all sites at [facility]. For routine questions regarding patient records, call [phone] during business hours, M-F 8:00 AM - 5:00 PM Central Time. Record requests for emergency care only can be directed to [phone] at any time.[facility] Allergies Active Allergy Reactions Criticality Noted [...] as directed for diabetes control. 1 each 08/05/20 21 Active blood sugar diagnostic strips 2 [...] (two) times a day 473 mL 03/12/20 Active mometasone (NASONEX) 50 mcg/actuation nasal sprayIndications: [...] daily 180 tablet 3 11/08/19 24 Active lisinopriL 40 mg tablet Take 1 tablet by mouth once daily 90 tablet 3 11/08/19 24 Active metFORMIN XR (Glucophage-XR) 500 mg 24 hr tablet Take 2 tablets by mouth twice daily 360 tablet 3 11/08/19 24 Active glipiZIDE (GlucotroL) 5 mg [...] syringe USE ONCE DAILY 100 each 3 08/25/19 024 Discontinued empagliflozin (Jardiance) 25 mg tabletIndications :Diabetes Mellitus Type 2 Hyperglycemia (HCC) Take 1 tablet (25 mg total) by mouth every morning before breakfast. 90 tablet 3 11/20/19 024 Discontinued furosemide (LASIX) 20 mg tablet Take 1 tablet (20 mg total) by mouth daily. 30 tablet 01/15/20 024 Discontinued avanafiL 50 mg tabletIndications :Dysfunction [...] 2019 Assessment & Plan (05/17/2022 5:03 PM LOGISTICS OPERATIONS DIRECTOR): -continue to monitor. -consider liver ultrasound [...] gout Assessment & Plan (05/17/2022 4:58 PM LOGISTICS OPERATIONS DIRECTOR): -Blood pressures in clinic were at goal today -Continue to monitor. Depressive Disorder 05/17/2022 Overview (05/17/2022): 22 April 2022: PHQ = 24 -patient tells me he has previously been on Paxil, lithium, Trileptal and was diagnosed with bipolar in [place]. -many acute stressors such as needing to find new housing, financial stress, and employment stress. Assessment & Plan (05/17/2022 5:16 PM LOGISTICS OPERATIONS DIRECTOR): -increase Wellbutrin that was previously prescribed [...] nasal Assessment & Plan (05/17/2022 5:05 PM LOGISTICS OPERATIONS DIRECTOR): -Will obtain more history at next visit -Consider ENT referral/ CT sinus/maxillofacial Nicotine Dependence Cigarettes In Remission 06/22 Overview (05/17/2022): -Quit smoking 2020 -On Wellbutrin - still smokes but she is involved at Nicotine dependency clinic Assessment & Plan (05/17/2022 4:49 PM LOGISTICS OPERATIONS DIRECTOR): -Increase Wellbutrin from 150 to 300 [...] mass. Assessment & Plan (05/17/2022 4:57 PM LOGISTICS OPERATIONS DIRECTOR): -At one of his emergency department [...] 2017 Assessment & Plan (05/17/2022 4:55 PM LOGISTICS OPERATIONS DIRECTOR): -Continue protonix 40mg BID -At next [...] (07/15/2019): Added automatically from request for surgery [id number] Pain Hand Left 09/24/2017 07/20/2020 Hypertension Essential [...] mg Assessment & Plan (05/17/2022 4:49 PM LOGISTICS OPERATIONS DIRECTOR): Blood pressure in clinic is well controled today. Continue current management. Carpal Tunnel Syndrome Left 06/18/2017 05/17/2022 Overview (05/17/2022): S/p release in 2018 Limitation Of Motion Hand Joint Left 08/27/2019 Pain Wrist Left 08/27/2019 Encounters Date Type Department Care Team Description 12/27/2023 Clinical Communication Department of [facility], [facility], in [place], [place] [address] [place] [phone] Silvia Robison M.D. Med Question 12/26/2023 Orders Only Department of Family Medicine, [facility], in [place], [place] [address] [place] [address] Ruchi Sharma M.D. Diabetes Mellitus Type 2 Hyperglycemia (HCC) 12/26/2023 Clinical Communication Department of Family [facility], [facility], in [place], [place] [address] [place] [address] Silvia Robiosn M.D. Med Question 12/19/2023 2:06 PM CDT - 12/19/2023 11:59 PM CDT Hospital Encounter Department of Laboratory Medicine in [place], [place] [address] [place] [phone] Silvia Robison M.D. Kidney And Ureter Disorder; Lesion Kidney Discharge Disposition: Home or Self Care 12/19/2023 1:57 PM CDT - 12/19/2023 2:05 PM CDT Hospital Encounter Department of Laboratory Medicine in [place], [place] [address] [place] [phone] Silvia Robison M.D. Hyperlipidemia On Treatment; Hypertension Essential Primary; Kidney And Ureter Disorder; Lesion Kidney; Dysfunction Erectile; Diabetes Mellitus Type 2 Hyperglycemia (HCC) Discharge Disposition: Home or Self Care 12/19/2023 Clinical Communication Department of Occupational Medicine in [place], [place] [facility] [place] [address] Flaca Franco P.A.-C., P.A., M.S. 12/17/2023 Orders Only [facility] SELF TEST [facility] [address] [place] [address] Silvia Robison M.D. Screening Cancer Colon 12/03/2023 Orders Only [facility] SELF [facility] [address] [place] [phone] Silvia Robison M.D. Screening Cancer Colon 11/16/2023 12:18 PM CDT - 11/16/2023 12:39 PM CDT Emergency [facility] [address] [place] [address] Splenomegaly Acquired (Primary Dx) Discharge Disposition: Home or Self Care 11/07/2023 Refill Department of Family Medicine, [facility], in [place], [place] [address] [place] [address] Silvia Robison M.D. Med Refill 10/09/2023 Refill Department of Family Medicine, [facility], in [place], [place] [address] [phone] Silvia Robison M.D. Med Refill from Last 3 Months Immunizations Name Administration Dates Next Due HepA Adult 06/22/2022(Deferred: Patient dec isireggie) HepB Adult 05/12/2021 07/10/2021 HepB Adult (HEPLISAV-B) [...] Proctor Coronary artery disease Maternal Grandfather Tashi Le e Hypertension Maternal Grandfather Tashi Proctor Stroke Maternal [...] drink = 0.6 oz pur e alcohol) [facility] Utilities Answer Date Recorded In the [...] often do you attend chur ch or yazdanism services? Never 06/22/2022 Do you belong to any clubs o r organizations such as uatsdin groups, unions, fraternal or athletic groups, or [...] Answer Date Recorded PHQ-2 Score 2 10/09/2023 [facility] [place] of Occupat ional [facility] - Occupational Stress Questionnaire Answer Date Recorded [...] living situation today? I have a [facility] place to live 10/12/2023 Education Answer Date Recorded What is the highest level of school you have completed or the highest degree you have received? 12th grade 05/19/2019 Sex and Gender Information Value Date Recorded Sex Assigned at Male 08/16/2019 8:50 PM CDT Gender Identity Male 05/21/2020 12:19 PM LOGISTICS OPERATIONS DIRECTOR Sexual Orientation Straight 07/10/2017 5: 27 PM CDT Job Start Date Occupation Industry Not on file Not on file Not on file Last Filed Vital Signs Vital Sign Reading Time Taken Comments Blood Pressure 118/81 06/21/2023 10:51 AM LOGISTICS OPERATIONS DIRECTOR Pulse 83 06/21/2023 10:51 AM LOGISTICS OPERATIONS DIRECTOR Temperature 36.1 ??C (96.9 ??F) 03/15/2023 11:[address] Respiratory Rate 18 06/16/2022 4:23 PM LOGISTICS OPERATIONS DIRECTOR Oxygen Saturation 97% 06/16/2022 6:15 PM LOGISTICS OPERATIONS DIRECTOR Inhaled Oxygen Concentration - - Weight 126 kg (277 lb 1.9 oz) 06/21/2023 10:51 A M LOGISTICS OPERATIONS DIRECTOR Height 196 cm (6' 5.17) 06/21/2023 10:51 AM LOGISTICS OPERATIONS DIRECTOR Body Mass Index 32.72 06/21/2023 10:51 AM LOGISTICS OPERATIONS DIRECTOR Plan of Treatment Upcoming Encounters Date Type Department Care Team (Late st Contact Info) Description 01/07/2024 1:00 PM CDT Comprehensive Visit Department of Family Medicine, [facility], in [place], [place] [address] [phone] Yazmin Rivas APRN, C.N.P., D.N.P. [address] [phone] Health Maintenance Due Date Last Done Comments CT Colonography 1972 Cologuard 1972 Colonoscopy 1972 Colorectal Cancer Screening 1972 FIT 1972 HIV Screening 1972 Hepatitis C Screening 1972 Zoster Vaccines (1 of 2) 2022 Diabetic Office Visit with F oot Exam 05/17/2023 05/17/2022, 04/18/2020 COVID-19 Vaccine (3 - 2022-2 4 season) 2023 05/01/2021, 03/03/2021 Influenza Vaccine (#1) 2024 Depression Monitoring (PHQ-9) 02/08/2024 10/09/2023 Urine Albumin 03/15/2024 03/15/2023, 12/0 11/2021, 08/26/2020, Additional history exists Visit: Chronic Disease, age 18+ 03/15/2024 , 06/22/2022 Hemoglobin A1C 03/20/2024 12/19/2023, 06/20, 03/15/2023, Additional history exists Office Visit for Blood Press ure Check / Re-check 06/20/2024 06/21/2023 Dilated Eye Exam 07/08/2024 07/09/2023, 05/2021, 07/19/2020 (Performed elsewhere) Creatinine Level (Kidney Fun ction Test) 12/18/2024 12/19/2023, 11/16/2023, 09/02/2023, Additional history exists Potassium Level 12/18/2024 12/19/2023, 10/21, 09/02/2023, Additional history exists Sodium Level 12/18/2024 12/19/2023, 10/21, 09/02/2023, Additional history exists Lipid (Cholesterol) Screening 12/18/2028, 07/09/2023, 06/22/2022, Additional history exists DTaP,Tdap,and Td Vaccines (2 - Td or Tdap) 10/14/2029 10/15/2019 Hepatitis B Vaccines Completed 05/12/2021, 07/20/2020, 10/15/2019 Pneumococcal vaccine (0-64 years) Completed 023 Medical Devices Implanted Type Area Sizing Sprayer Device Identifier Shelf Expiration Date Model / Serial / Lot Chips Cancellous 5cc - [id number] Implanted:Qty: 1 on 06/07/2017 Bone or Tissue Other/Legacy - See Implant Description [employer] Description:Device Manufactu rer - [employer]. Body Location - Other. bone for packing defect. Device Status Text - [id number]. Peg Smooth 2.0mm X 18mm Long - Luke [id number] Implanted:Qty: 3 on 06/07/2017 Hardware e.g. pins/screws /rods Bio[employer] Description:Device Manufactu rer - [employer]. Device Status Text - [id number]. Peg Smooth 2.0mm X 20mm Long - Luke [id number] Implanted:Qty: 2 on 06/07/2017 Hardware e.g. pins/screws /rods [employer] Description:Device Manufactu rer - [employer]. Device Status Text - [id number]. Screw-Cortical 3.5mm X 14mm Long - Luke [id number] Implanted:Qty: 3 on 06/07/2017 Hardware e.g. pins/screws /rods [employer] Description:Device Manufactu rer - [employer]. Device Status Text - [id number]. Plate-Distal Volar Lt Short - Luke [id number] Implanted:Qty: 1 on 06/07/2017 Hardware e.g. pins/screws /rods [employer] Description:Device Manufactu rer - [employer]. Device Status Text - [id number]. Screw-Cortical 3.5mm X 15mm Long - Luke [id number] Implanted:Qty: 2 on 06/07/2017 Hardware e.g. pins/screws /rods [employer] Description:Device Manufactu rer - [employer]. Device Status Text - [id number]. Peg Threaded 2.5mm X 20mm Long - Luke [id number] Implanted:Qty: 1 on 06/07/2017 Hardware e.g. pins/screws /rods [employer] Description:Device Manufactu rer - [employer]. Device Status Text - [id number]. Peg Smooth 2.0mm X 22mm Long - Luke [id number] Implanted:Qty: 1 on 06/07/2017 Hardware e.g. pins/screws /rods [employer] Description:Device Manufactu rer - [employer]. Device Status Text - [id number]. Explanted Type Area Sizing Sprayer Device Identifier Shelf Expiration Date Model / Serial / Lot Stnt Uret Inl 7fx26 - [id number] Implanted:Qty : 1 on 07/15/2019 by Terry Girard M.D. at [facility] Ureteral Stent C.[employer].Bard [id number] 05/01/2023 [id number] / / [id number] Procedures Procedure Name Priority Date/Time Associated Diagnosis [...] ALBUMIN, RANDOM, U Routine 03/15/2023 10:57 AM LOGISTICS OPERATIONS DIRECTOR Diabetes Mellitus Type 2 Hyperglycemia (HCC) [...] LAB BLOOD ADD-O N Performing Organization Address [facility] Co de Phone Number [facility] [address] [place] [address], [facility] in [place] [address] [place] [address] * Thyroid Function [place] (12/19/2023 2:41 PM CDT) TSH, Sensitive 1.1 0.3 - 4.2 mIU/L 12/19/2023 4:14 PM CDT [facility] Blood (Blood, Venous) 12/19/2023 2:41 PM CDT 12/19/2023 2:42 PM CDT Silvia Robison M.D. LAB BLOOD ADD-O N Performing Organization Address [facility] Co de Phone Number [facility] [address] [place] [address], [facility] in [place] [address], [place] [address] * (ABNORMAL) CBC without Differential (12/19/2023 2:41 PM CDT) Hemoglobin 14.4 13.2 - 16.6 g/dL 12/19/2023 [...] LAB BLOOD ADD-O N Performing Organization Address [facility] Co de Phone Number [facility] [address] [place] [address], [facility] [place] [address] [place] [address] * BUN (Blood Urea Nitrogen) (12/19/2023 2:41 PM CDT) BUN (Blood Urea Nitrogen), P 14 8 - 24 mg/dL 12/19/2023 3:19 PM CDT [facility] Blood (Blood, Venous) 12/19/2023 2:41 PM CDT 12/19/2023 2:42 PM CDT Silvia Robison M.D. LAB BLOOD ADD-O N Performing Organization Address [facility] Co de Phone Number [facility] [address], [place] [address], [facility] [place] [address] [place] [address] * ALT (Alanine Aminotransferase) (12/19/2023 2:41 PM CDT) Alanine Aminotransferase (ALT), P 39 7 - 55 U/L 12/19/2023 3:19 PM CDT [facility] Blood (Blood, Venous) 12/19/2023 2:41 PM CDT 12/19/2023 2:42 PM CDT Silvia Robison M.D. LAB BLOOD ADD-O N Performing Organization Address City/[facility]/ZIP Co de Phone Number [facility] [address] [place] [address], [place] [facility] [place] [address] [place] [address] * AST (Aspartate Aminotransferase) (12/19/2023 2:41 PM CDT) Aspartate Aminotransferase (AST), P 38 8 - 48 U/L 12/19/2023 3:19 PM CDT [facility] Blood (Blood, Venous) 12/19/2023 2:41 PM CDT 12/19/2023 2:42 PM CDT Silvia Robison M.D. LAB BLOOD ADD-O N Performing Organization Address [facility] Co de Phone Number [facility] [address] [place] [address], [place] [facility] [place] [address] [place] [address] * Sodium (12/19/2023 2:41 PM CDT) Sodium, P 135 135 - 145 mmol/L 12/19/2023 3:19 PM CDT [facility] Blood (Blood, Venous) 12/19/2023 2:41 PM CDT 12/19/2023 2:42 PM CDT Silvia Robison M.D. LAB BLOOD ADD-O N Performing Organization Address City/[facility]/ZIP Co de Phone Number [facility] [address] [place] [address], [place] [facility] [place] [address] [place] [address] * Potassium (12/19/2023 2:41 PM CDT) Potassium, P 4.5 3.6 - 5.2 mmol/L 12/19/2023 3:19 PM CDT [facility] Blood (Blood, Venous) 12/19/2023 2:41 PM CDT 12/19/2023 2:42 PM CDT Silvia Robison M.D. LAB BLOOD ADD-O N Performing Organization Address [facility] Co de Phone Number [facility] [address], [place] [address], [facility] [place] [address] [place] [address] * (ABNORMAL) Alkaline Phosphatase (12/19/2023 2:41 PM CDT) Alkaline Phosphatase, P 132(H) 40 - 129 U/L 12/19/2023 3:19 PM CDT [facility] Blood (Blood, Venous) 12/19/2023 2:41 PM CDT 12/19/2023 2:42 PM CDT Silvia Robison M.D. LAB BLOOD ADD-O N Performing Organization Address [facility] Co de Phone Number [facility] [address], [place] [address], [facility] [place] [address] [place] [address] * (ABNORMAL) Hemoglobin A1c (12/19/2023 2:41 PM [...] LAB BLOOD ADD-O N Performing Organization Address City/[facility]/ZIP Co de Phone Number [facility] [address] [place] [address], [place] [facility] [place] [address] [place] [address] * Vitamin B12 Assay (12/19/2023 2:41 PM CDT) Vitamin B12 Assay, S 369 232 - 1245 ng/L 12/19/2023 10:16 PM CDT AUST Comment: Biotin has been identified by the gourmet coffee attendant as a potential interfering substance. Higher concentrations of biotin may be found in multivitamins, hair/nail supplements, and workout supplements. If the result does not match clinical observations, repeat testing after patient refrains from the use of supplements for at least 12 hours. Blood (Blood, Venous) 12/19/2023 2:41 PM CDT 12/19/2023 9:38 PM CDT Silvia Robison M.D. LAB BLOOD ADD-O N Performing Organization Address [facility] Co de Phone Number [facility] [address] [place] [address], [facility] [address] [place] [address] * Creatinine with Estimated GFR (12/19/2023 2:41 PM CDT) Creatinine 1.05 0.74 - 1.35 mg/dL 12/19/2023 3:19 PM CDT [facility] Estimated GFR (eGFR) 86 >=60 mL/min/BSA 12/19/2023 3:19 PM CDT [facility] Comment: Estimated GFR calculated using the 2020 CKD_EPI creatinine equation. Blood (Blood, Venous) 12/19/2023 2:41 PM CDT 12/19/2023 2:42 PM CDT Silvia Robison M.D. LAB BLOOD ADD-O N [facility] [address] [place] [address], [facility] [place] [address] [place] [address] * Chloride (12/19/2023 2:41 PM CDT) Chloride, P 99 98 - 107 mmol/L 12/19/2023 3:19 PM CDT [facility] Blood (Blood, Venous) 12/19/2023 2:41 PM CDT 12/19/2023 2:42 PM CDT Silvia Robison M.D. LAB BLOOD ADD-O N Performing Organization Address City/[facility]/ZIP Co de Phone Number [facility] [address] [place] [address], [place] [facility] [place] [address] [place] [address] * (ABNORMAL) Bicarbonate (12/19/2023 2:41 PM CDT) Bicarbonate, P 17(L) 22 - 29 mmol/L 12/19/2023 3:19 PM CDT [facility] Blood (Blood, Venous) 12/19/2023 2:41 PM CDT 12/19/2023 2:42 PM CDT Silvia Robison M.D. LAB BLOOD ADD-O N [facility] [address] [place] [address], [facility] [place] [address] [place] [address] * Calcium, Total (12/19/2023 2:41 PM CDT) Calcium, Total, P 9.6 8.6 - 10.0 mg/dL 12/19/2023 3:19 PM CDT [facility] Blood (Blood, Venous) 12/19/2023 2:41 PM CDT 12/19/2023 2:42 PM CDT Silvia Robison M.D. LAB BLOOD ADD-O N [facility] [address] [place] [address], [facility] [place] [address] [place] [address] * (ABNORMAL) Urinalysis, with Microscopic: Urine, Midstream [...] 8.0 12/19/2023 2:54 PM CDT [facility] Specific [place] >1.035(A) 1.001 - 1.035 12/19/2023 2:54 PM [...] Silvia Robison M.D. LAB URINE ORDER GENIE [facility] [address] [place] [address], [facility] [place] [address] [place] [address] * DX Chest Portable 1 View (11/16/2023 [...] L5-S1. Small fat-containing umbilical hernia. Procedure Note Shahid Kebede M.D. - 11/16/2023 EXAM: CT ABDOMEN [...] (ABNORMAL) Albumin, Random, Urine (03/15/2023 10:57 AM LOGISTICS OPERATIONS DIRECTOR) Microalbumin <12.0 mg/L 03/15/2023 1:54 PM LOGISTICS OPERATIONS DIRECTOR [facility] Comment:If clinically indica brianda, contact the lab for additional testing. Creatinine 53 mg/dL 03/15/2023 1:54 PM LOGISTICS OPERATIONS DIRECTOR [facility] Albumin/Creatinine Ratio <23(H) <17 mg/g 03/15/2023 1:54 PM LOGISTICS OPERATIONS DIRECTOR [facility] Comment: This ratio may not correspond with the reference range because one or both of the values used to calculate the ratio was above or below the quantification limits. Urine (Urine, Midstream) 03/15/2023 10:57 AM LOGISTICS OPERATIONS DIRECTOR 03/15/2023 11:39 AM LOGISTICS OPERATIONS DIRECTOR Silvia Robison M.D. LAB URINE ORDER GENIE [facility] [address] [place] [address], [place] [facility] [place] [address] [place] [address] from Last 3 Months or Most Recently Relevant to Health Maintenance Advance Directives For more information, please contact: [phone] * Full Code (Latest Code Status on File) Date Activated Date Inactivated Comments 07/15/2019 10:35 AM 07/16/2019 1:23 PM Question Answer Comments Full Code: Discussed Care Teams Waistline Joiner Lockstitch Relationship Specialty Start Date End Date Silvia Robison M.D. [address] [place] [address] PCP - General Family Medicine 10/03/23
--- OUTSIDE RECORDS SUMMARY | 2023-12-27 21:36 | XMS_ITS | Encounter Summary ---
Author Organization [facility] Address [address] [place] [address] Care Team Providers Care Director Of Food And Beverage Services Name Role Phone Silvia Robison M.D. Primary Care Provider Encounter Details Date Type Department Care Team (Late st Contact Info) Description 12/03/2023 Orders Only [facility] [address] [place] [address] Silvia Robison M.D. [address] [place] [phone] Screening Cancer Colon Social History Tobacco Use Types Packs/Day Years Used Date Smoking Tobacco: Former Cigarettes 0.3 37.1 0 09/21/1983 - 10/31/2020 Passive Smoke Exposure: Current Smokeless Tobacco: Never Quit: 01/12/2018 Comments:1 pack per week Alcohol Use Standard Drinks/Week Comments No 0 (1 standard drink = 0.6 oz pur e alcohol) [facility] Utilities Answer Date Recorded In the [...] How often do you attend chur or roman catholic services? Never 06/22/2022 Do [...] Recorded PHQ-2 Score 2 10/09/2023 [facility] of Occupat ional Health - [...] living situation today? I have a [facility] place to live 10/12/2023 Education Answer Date Recorded What is the highest level of school you have completed or the highest degree you have received? 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 [address] [place] [phone] Scheduled Orders Name Type Priority Associated Diagnoses Orde r Schedule Cologuard - Sent Out Lab Lab Routine Screening Cancer Colon Expected: 12/17/2023, Expires: 03/04/2025 documented as of this encounter Visit Diagnoses Diagnosis Screening Cancer Colon documented in this encounter Additional Health Concerns Assessment Noted Time PHQ-9 Depression Total Score: 15 024 9:47 AM CDT documented as of this encounter Care Teams Director Of Food And Beverage Services Relationship Specialty Start Date End Date Silvia Robison M.D. [address] [place] [phone] PCP - General Family Medicine 10/03/23 documented as of this encounter
--- OUTSIDE RECORDS SUMMARY | 2023-12-27 21:36 | XMS_ITS | Encounter Summary ---
Author Organization [facility] Address [address] [place] [address] Care Team Providers Care Huller Operator Name Role Phone Silvia Robison M.D. Primary Care Provider Encounter Details Date Type Department Care Team (Late st Contact Info) Description 12/26/2023 Orders Only Department of Family Medicine, [facility], in [place], [place] [address] [place] [phone] Ruchi Sharma M.D. [address] [place] [phone] Diabetes Mellitus Type 2 Hyperglycemia (HCC) Social History Tobacco Use Types Packs/Day Years Used Date Smoking Tobacco: Former Cigarettes 0.3 37.1 0 09/21/1983 - 10/31/2020 Passive Smoke Exposure: Current Smokeless Tobacco: Never Quit: 01/12/2018 Comments:1 pack per week Alcohol Use Standard Drinks/Week Comments No 0 (1 standard drink = 0.6 oz pur e alcohol) [facility] Utilities Answer Date Recorded In the past 12 months has th e electric, gas, oil, or water company [...] often do you attend chur ch or sabianism services? Never 06/22/2022 Do you belong to any clubs o r organizations such as alevism groups, unions, fraternal or athletic groups, or [...] Answer Date Recorded PHQ-2 Score 2 10/09/2023 [facility] of Occupat ional Health - Occupational Stress [...] your living situation today? I have a [facility] place to live 10/12/2023 Education Answer Date Recorded What is the highest level of school you have completed or the highest degree you have received? 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 [address] [place] [phone] documented as of this encounter Visit Diagnoses Diagnosis Diabetes Mellitus Type 2 Hyperglycemia (HCC) documented in this encounter Additional Health Concerns Assessment Noted Time PHQ-9 Depression Total Score: 15 024 9:47 AM CDT documented as of this encounter Care Teams Huller Operator Relationship Specialty Start Date End Date Silvia Robison M.D. [address] [place] [phone] PCP - General Family Medicine 10/03/23 documented as of this encounter
--- OUTSIDE RECORDS SUMMARY | 2023-12-27 21:36 | XMS_ITS | Encounter Summary ---
Author Organization [facility] Address [address] [place] [address] Care Team Providers Care Motor Power Connector Name Role Phone Silvia Robison M.D. Primary Care Provider Encounter Details Date Type Department Care Team (Late st Contact Info) Description 12/17/2023 Orders Only [facility] [address] [place] [phone] Silvia Robison M.D. [address] [place] [phone] Screening Cancer Colon Social History Tobacco Use Types Packs/Day Years Used Date Smoking Tobacco: Former Cigarettes 0.3 37.1 0 09/21/1983 - 10/31/2020 Passive Smoke Exposure: Current Smokeless Tobacco: Never Quit: 01/12/2018 Comments:1 pack per week Alcohol Use Standard Drinks/Week Comments No 0 (1 standard drink = 0.6 oz pur e alcohol) [facility] Utilities Answer Date Recorded In [...] How often do you attend chur or orthodox services? Never 06/22/2022 Do you belong to any clubs o r organizations such as orthodox groups, unions, fraternal or athletic groups, or [...] PHQ-2 Score 2 10/09/2023 [facility] of Occupat ional Health - Occupational Stress [...] your living situation today? I have a [facility] place to live 10/12/2023 Education Answer Date Recorded What is the highest level of school you have completed or the highest degree you have received? 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 [address] [place] [phone] documented as of this encounter Visit Diagnoses Diagnosis Screening Cancer Colon documented in this encounter Additional Health Concerns Assessment Noted Time PHQ-9 Depression Total Score: 15 024 9:47 AM CDT documented as of this encounter Care Teams Motor Power Connector Relationship Specialty Start Date End Date Silvia Robison M.D. [address] [place] [phone] PCP - General Family Medicine 10/03/23 documented as of this encounter
--- OUTSIDE RECORDS SUMMARY | 2023-12-27 21:36 | XMS_ITS | Encounter Summary ---
Author Organization [facility] Address [address] [place] [address] Care Team Providers Care Manager Surgery Name Role Phone Silvia Robison M.D. Primary Care Provider Encounter Details Date Type Department Care Team (Late st Contact Info) Description 12/19/2023 Clinical Communication Department of Occupational Medicine in [place], [place] [address] [place] [phone] Flaca Franco P.A.-Yelitza., P.A., M.S. [address] [place] [phone] Social History Tobacco Use Types Packs/Day Years Used Date Smoking Tobacco: Former Cigarettes 0.3 37.1 0 09/21/1983 - 10/31/2020 Passive Smoke Exposure: Current Smokeless Tobacco: Never Quit: 01/12/2018 Comments:1 pack per week Alcohol Use Standard Drinks/Week Comments No 0 (1 standard drink = 0.6 oz pur e alcohol) [facility] Utilities Answer Date Recorded In the past [...] often do you attend chur ch or sabianist services? Never 06/22/2022 Do you belong to any clubs o r organizations such as pentecostal groups, unions, fraternal or athletic groups, or [...] Answer Date Recorded PHQ-2 Score 2 10/09/2023 [facility] of Occupat ional Health - Occupational Stress [...] your living situation today? I have a [facility] place to live 10/12/2023 Education Answer Date Recorded What is the highest level of school you have completed or the highest degree you have received? 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 [address], [place] [phone] documented as of this encounter Visit Diagnoses Not on filedocumented in this encounter Additional Health Concerns Assessment Noted Time PHQ-9 Depression Total Score: 15 024 9:47 AM CDT documented as of this encounter Care Teams Manager Surgery Relationship Specialty Start Date End Date Silvia Robison M.D. [address] [phone] PCP - General Family Medicine 10/03/23 documented as of this encounter
--- OUTSIDE RECORDS SUMMARY | 2023-12-27 21:36 | XMS_ITS | Encounter Summary ---
Author Organization [facility] Address [address] [place] [address] Care Team Providers Care Transfer Clerk Name Role Phone Silvia Robison M.D. Primary Care Provider Reason for Visit * Reason Onset Date Comments Med Question 12/26/2023 Encounter Details Date Type Department Care Team (Late st Contact Info) Description 12/26/2023 Clinical Communication Department of Family Medicine, [facility], in [place], [place] [address] [place] [phone] Silvia Robison M.D. [address] [place] [phone] Med Question Social History Tobacco Use Types Packs/Day Years Used Date Smoking Tobacco: Former Cigarettes 0.3 37.1 0 09/21/1983 - 10/31/2020 Passive Smoke Exposure: Current Smokeless Tobacco: Never Quit: 01/12/2018 Comments:1 pack per week Alcohol Use Standard Drinks/Week Comments No 0 (1 standard drink = 0.6 oz pur e alcohol) [facility] Utilities Answer Date Recorded In the [...] often do you attend chur ch or holiness services? Never 06/22/2022 Do you belong to any clubs o r organizations such as temple groups, unions, fraternal or athletic groups, or [...] Answer Date Recorded PHQ-2 Score 2 10/09/2023 [facility] [place] of Occupat ional Health - Occupational Stress [...] your living situation today? I have a [facility] place to live 10/12/2023 Education Answer Date Recorded What is the highest level of school you have completed or the highest degree you have received? 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 [address] [place] [phone] documented as of this encounter Visit Diagnoses Not on filedocumented in this encounter Additional Health Concerns Assessment Noted Time PHQ-9 Depression Total Score: 15 024 9:47 AM CDT documented as of this encounter Care Teams Transfer Clerk Relationship Specialty Start Date End Date Silvia Robison M.D. [address] [place] [phone] PCP - General Family Medicine 10/03/23 documented as of this encounter
--- OUTSIDE RECORDS SUMMARY | 2023-12-27 21:36 | XMS_ITS | Encounter Summary ---
Author Organization [facility] Address [address] [place] [address] Care Team Providers Care Home Health Scheduler Name Role Phone Silvia Robison M.D. Primary Care Provider Reason for Visit * Reason Comments Med Refill Encounter Details Date Type Department Care Team (Late st Contact Info) Description 11/07/2023 Refill Department of Family Medicine, [facility] [place], in [place], [place] [address] [place] [phone] Silvia Robison M.D. [address] [place] [phone] Med Refill Social History Tobacco Use Types Packs/Day Years Used Date Smoking Tobacco: Former Cigarettes 0.3 37.1 0 09/21/1983 - 10/31/2020 Passive Smoke Exposure: Current Smokeless Tobacco: Never Quit: 01/12/2018 Comments:1 pack per week Alcohol Use Standard Drinks/Week Comments No 0 (1 standard drink = 0.6 oz pur e alcohol) [facility] Utilities Answer Date Recorded In the [...] often do you attend chur ch or temple services? Never 06/22/2022 Do you belong to any clubs o r organizations such as hinduism groups, unions, fraternal or athletic groups, or [...] Answer Date Recorded PHQ-2 Score 2 10/09/2023 [facility] [place] of Occupat ional Health - Occupational Stress [...] your living situation today? I have a [facility] place to live 10/12/2023 Education Answer Date Recorded What is the highest level of school you have completed or the highest degree you have received? 12th grade 05/19/2019 Sex and Gender Information Value Date Recorded Sex Assigned at Male 08/16/2019 8:50 PM CDT Gender Identity Male 05/21/2020 12:19 PM [employer] Sexual Orientation Straight 07/10/2017 5: 27 PM CDT Job Start Date Occupation Industry Not on file Not on file Not on file documented as of this encounter Plan of Treatment Upcoming Encounters Date Type Department Care Team (Late st Contact Info) Description 01/07/2024 1:00 PM CDT Comprehensive Visit Department of Family Medicine, [facility] [place], in [place], [place] [address] [phone] Yazmin Rivas, SUYAPA, C.N.P., D.N.P. [address] [place] [phone] documented as of this encounter Visit Diagnoses Not on filedocumented in this encounter Additional Health Concerns Assessment Noted Time PHQ-9 Depression Total Score: 15 024 9:47 AM CDT documented as of this encounter Care Teams Home Health Scheduler Relationship Specialty Start Date End Date Silvia Robison M.D. [address] [place] [phone] PCP - General Family Medicine 10/03/23 documented as of this encounter
--- OUTSIDE RECORDS SUMMARY | 2023-12-27 21:36 | XMS_ITS | Encounter Summary ---
Author Organization [facility] Address [address] [place] [address] Care Team Providers Care Branding Machine Operator Name Role Phone Silvia Robison M.D. Primary Care Provider Encounter Details Date Type Department Care Team (Latest Contact Info) Description 12/19/2023 1:57 PM CDT - 12/19/2023 2:05 PM CDT Hospital Encounter Department of Laboratory Medicine in [place], [place] [address] [place] [phone] Silvia Robison M.D. [address] [place] [phone] Hyperlipidemia On Treatment; Hypertension Essential Primary; Kidney And Ureter Disorder; Lesion Kidney; Dysfunction Erectile; Diabetes Mellitus Type 2 Hyperglycemia (HCC) Discharge Disposition: Home or Self Care Social History Tobacco Use Types Packs/Day Years Used Date Smoking Tobacco: Former Cigarettes 0.3 37.1 0 09/21/1983 - 10/31/2020 Passive Smoke Exposure: Current Smokeless Tobacco: Never Quit: 01/12/2018 Comments:1 pack per week Alcohol Use Standard Drinks/Week Comments No 0 (1 standard drink = 0.6 oz pur e alcohol) [facility] Utilities Answer Date Recorded In the past 12 months has [employer] electric, gas, oil, or water company threatened [...] How often do you attend chur or nondenominational services? 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 06/07/2017 allopurinoL (Zyloprim) 100 mg tablet Take 1 tablet by mouth twice daily 180 tablet 3 11/08/2023 amLODIPine (Norvasc) 10 mg tablet Take 1 tablet by mouth once daily 90 tablet 3 11/08/2023 atorvastatin (Lipitor) 20 mg tablet Take 1 tablet by mouth once daily 90 tablet 3 11/08/2023 blood-glucose meter misc Test as directed for diabetes control. 1 each 11/24/2020 buPROPion XL (Wellbutrin XL) 150 mg 24 hr tablet take 1 tablet by mouth once daily in the morning 90 tablet 3 11/08/2023 chlorhexidine (PERIDEX) 0.12 % mouthwash Swish and spit 15 mL 2 (two) times a day. Swish and spit 15 mL 2 (two) times a day 473 mL 03/12/2023 cloNIDine (Catapres) 0.1 mg tablet Take 1 tablet by mouth twice daily 180 tablet 3 11/08/2023 gabapentin (NEURONTIN) 300 mg capsuleIndications:Ne uropathy TAKE 1 CAPSULE BY MOUTH IN THE MORNING, 2 CAPSULES IN THE AFTERNOON, AND 3 CAPSULES AT BEDTIME. 270 capsule 05/10/2023 glipiZIDE (GlucotroL) 5 mg tabletIndications:Catherine betes Mellitus Type 2 Hyperglycemia (HCC) Take 1 tablet (5 mg total) by mouth 2 (two) times a day before morning and evening meals. 60 tablet 3 12/26/2023 labetaloL 200 mg tablet Take 1 tablet by mouth twice daily 180 tablet 3 11/08/2023 lisinopriL 40 mg tablet Take 1 tablet by mouth once daily 90 tablet 3 11/08/2023 meloxicam (MOBIC) 15 mg tabletIndications:Jerry n Back,Pain Leg Right Take 1 tablet (15 mg total) by mouth daily. 90 tablet 3 11/19/2022 metFORMIN XR (Glucophage-XR) 500 mg 24 hr tablet Take 2 tablets by mouth twice daily 360 tablet 3 11/08/2023 mometasone (NASONEX) 50 mcg/actuation nasal sprayIndications:Mario rgy Seasonal Administer 2 sprays into each nostril daily. 17 g 5 03/15/2023 03/14/2024 pantoprazole (PROTONIX) 40 mg EC tablet Take 1 tablet (40 mg total) by mouth 2 (two) times a day before breakfast and dinner. 180 tablet 3 11/19/2022 sodium chloride (SALINE NASAL MIST NASAL) Administer into nostril(s) daily as needed. For nasal congestion avanafiL 50 mg tabletIndications:Dys function Erectile Take 1 tablets as needed for erectile dysfunction. If blood pressure is not low can take an additional pill 30 tablet 3 03/15/2023 12/25/2023 BD Veo Insulin Syringe UF 0.3 mL 31 gauge x 15/64 syringe USE ONCE DAILY 100 each 3 08/24/2022 12/25/2023 empagliflozin (Jardiance) 25 mg tabletIndications:Catherine betes Mellitus Type 2 Hyperglycemia (HCC) Take 1 tablet (25 mg total) by mouth every morning before breakfast. 90 tablet 3 11/19/2022 12/26/2023 furosemide (LASIX) 20 mg tablet Take 1 tablet (20 mg total) by mouth daily. 30 tablet 01/14/2023 12/25/2023 insulin glargine (Lantus U-100 Insulin) 100 unit/mL injectionIndications: Diabetes Mellitus Type 2 Hyperglycemia (HCC) Inject 20 mg daily subcutaneously. 18 mL 3 10/16/2023 12/26/2023 insulin glargine (Lantus U-100 Insulin) 100 unit/mL vialIndications:Diabe prince Mellitus Type 2 Hyperglycemia (HCC) Inject 25 Units under the skin at bedtime. Inject 25 mg daily subcutaneously. 18 mL 3 12/26/2023 12/26/2023 documented as of this encounter Plan of Treatment Upcoming Encounters Date Type Department Care Team (Late st Contact Info) Description 01/07/2024 1:00 PM CDT Comprehensive Visit Department of Family Medicine, [facility], in [place], [place] [address] [place] [phone] Yazmin Rivas APRN, C.N.P., D.N.P. [address] [place] [phone] Pending Results Name Type Priority Associated Diagnoses Date /Time Testosterone, Total and Free Lab Routine Dysfunction Erectile 12/19/2023 2:41 PM CDT Scheduled Orders Name Type Priority Associated Diagnoses Orde r Schedule Testosterone, Total and Free Lab Routine Dysfunction Erectile Once for 1 Occurrences starting 12/19/2023 until 12/19/2023 documented as of this encounter Procedures Procedure Name Priority Date/Time Associated Diagnosis Comments LIPID PANEL, S Routine 12/19/2023 2:41 PM CDT Dysfunction Erectile THYROID FUNCTION CASCADE, S Routine 12/19/2023 2:41 PM CDT Hyperlipidemia On Treatment CBC WITHOUT DIFFERENTIAL, B Routine 12/19/2023 2:41 PM CDT Dysfunction Erectile BUN (BLOOD UREA NITROGEN), S/P Routine 12/19/2023 [...] CDT Kidney And Ureter Disorder Lesion Kidney ALKALINE PHOSPHATASE, S/P Routine 12/19/2023 2:41 PM CDT Kidney And Ureter Disorder Lesion Kidney HEMOGLOBIN A1C, B Routine 12/19/2023 2:4 1 PM CDT Diabetes Mellitus Type 2 Hyperglycemia (HCC) VITAMIN B12 ASSAY, S Routine 12/19/2023 2:41 PM CDT Hypertension Essential Primary CREATININE WITH EGFR, S/P Routine 12/19/2023 2:41 PM CDT Kidney And Ureter Disorder Lesion Kidney CHLORIDE, S/P Routine 12/19/2023 2:41 PM CDT Kidney And Ureter Disorder Lesion Kidney BICARBONATE, B/S/P Routine 12/19/2023 2: 41 PM CDT Kidney And Ureter Disorder Lesion Kidney CALCIUM, TOT, S/P Routine 12/19/2023 2:4 1 PM CDT Kidney And Ureter Disorder Lesion Kidney documented in this encounter Results * (ABNORMAL) Hemoglobin A1c (12/19/2023 2:41 PM [...] Silvia Robison M.D. LAB BLOOD ADD-O N [facility] [address], [place] [address], [facility] [place] [address], [place] [address] * (ABNORMAL) CBC without Differential (12/19/2023 2:41 [...] Silvia Robison M.D. LAB BLOOD ADD-O N [facility] [address] [place] [address], [facility] [place] [address], [place] [address] * (ABNORMAL) Lipid Panel (12/19/2023 2:41 PM [...] LAB BLOOD ADD-O N Performing Organization Address City/[facility]/ZIP Co de Phone Number [facility] [address] [place] [phone], [facility] [place] [address] [place] [phone] * (ABNORMAL) Alkaline Phosphatase (12/19/2023 2:41 PM CDT) Alkaline Phosphatase, P 132(H) 40 - 129 U/L 12/19/2023 3:19 PM CDT [facility] Blood (Blood, Venous) 12/19/2023 2:41 PM CDT 12/19/2023 2:42 PM CDT Silvia Robison M.D. LAB BLOOD ADD-O N Performing Organization Address City/[facility]/ZIP Co de Phone Number [facility] [address] [address], [facility] [place] [address] [place] [phone] * ALT (Alanine Aminotransferase) (12/19/2023 2:41 PM CDT) Alanine Aminotransferase (ALT), P 39 7 - 55 U/L 12/19/2023 3:19 PM CDT [facility] Blood (Blood, Venous) 12/19/2023 2:41 PM CDT 12/19/2023 2:42 PM CDT Silvia Robison M.D. LAB BLOOD ADD-O N Performing Organization Address City/[facility]/ZIP Co de Phone Number [facility] [address] [place] [address], [place] [facility] [place] [address] [place] [address] * AST (Aspartate Aminotransferase) (12/19/2023 2:41 PM CDT) Aspartate Aminotransferase (AST), P 38 8 - 48 U/L 12/19/2023 3:19 PM CDT OW Blood (Blood, Venous) 12/19/2023 2:41 PM CDT 12/19/2023 2:42 PM CDT Silvia Robison M.D. LAB BLOOD ADD-O N Performing Organization Address [facility]/ZIP Co de Phone Number [facility] [address] [place] [address], [place] [facility] [place] [address] [place] [address] * (ABNORMAL) Bicarbonate (12/19/2023 2:41 PM CDT) Bicarbonate, P 17(L) 22 - 29 mmol/L 12/19/2023 3:19 PM CDT [facility] Blood (Blood, Venous) 12/19/2023 2:41 PM CDT 12/19/2023 2:42 PM CDT Silvia Robison M.D. LAB BLOOD ADD-O N [facility] [address] [place] [address], [place] AT [facility] [place] [address], [place] [address] * BUN (Blood Urea Nitrogen) (12/19/2023 2:41 PM CDT) BUN (Blood Urea Nitrogen), P 14 8 - 24 mg/dL 12/19/2023 3:19 PM CDT [facility] Blood (Blood, Venous) 12/19/2023 2:41 PM CDT 12/19/2023 2:42 PM CDT Silvia Robison M.D. LAB BLOOD ADD-O N Performing Organization Address [facility]/ZIP Co de Phone Number [facility] [address] [place] [address], [facility] [address] [address] * Calcium, Total (12/19/2023 2:41 PM CDT) Calcium, Total, P 9.6 8.6 - 10.0 mg/dL 12/19/2023 3:19 PM CDT [facility] Blood (Blood, Venous) 12/19/2023 2:41 PM CDT 12/19/2023 2:42 PM CDT Silvia Robison M.D. LAB BLOOD ADD-O N Performing Organization Address City/[facility]/ZIP Co de Phone Number [facility] [address] [place] [address], [facility] [place] [address], [place] [address] * Chloride (12/19/2023 2:41 PM CDT) Chloride, P 99 98 - 107 mmol/L 12/19/2023 3:19 PM CDT [facility] Blood (Blood, Venous) 12/19/2023 2:41 PM CDT 12/19/2023 2:42 PM CDT Silvia Robison M.D. LAB BLOOD ADD-O N Performing Organization Address City/[facility]/ZIP Co de Phone Number [facility] [address] [place] [address], [facility] [place] [address] [place] [address] * Creatinine with Estimated GFR (12/19/2023 2:41 PM CDT) Creatinine 1.05 0.74 - 1.35 mg/dL 12/19/2023 3:19 PM CDT [facility] Estimated GFR (eGFR) 86 >=60 mL/min/BSA 12/19/2023 3:19 PM CDT [facility] Comment: Estimated GFR calculated using the 2020 CKD_EPI creatinine equation. Blood (Blood, Venous) 12/19/2023 2:41 PM CDT 12/19/2023 2:42 PM CDT Silvia Robison M.D. LAB BLOOD ADD-O N Performing Organization Address [facility]/ZIP Co de Phone Number [facility] [address] [place] [address], [place] AT [facility] [place] [address] [place] [address] * Sodium (12/19/2023 2:41 PM CDT) Sodium, P 135 135 - 145 mmol/L 12/19/2023 3:19 PM CDT OW Blood (Blood, Venous) 12/19/2023 2:41 PM CDT 12/19/2023 2:42 PM CDT Silvia Robison M.D. LAB BLOOD ADD-O N Performing Organization Address City/[facility]/ZIP Co de Phone Number [facility] [address] [place] [address], [place] [facility] [place] [address] [place] [address] * Potassium (12/19/2023 2:41 PM CDT) Potassium, P 4.5 3.6 - 5.2 mmol/L 12/19/2023 3:19 PM CDT [facility] Blood (Blood, Venous) 12/19/2023 2:41 PM CDT 12/19/2023 2:42 PM CDT Silvia Robison M.D. LAB BLOOD ADD-O N [facility] [address] [place] [address], [facility] [place] [address] [place] [address] * Vitamin B12 Assay (12/19/2023 2:41 PM CDT) Pathologist [facility] Vitamin B12 Assay, S 369 232 - 1245 ng/L 12/19/2023 10:16 PM CDT AUST Comment: Biotin has been identified by the leasing assistant as a potential interfering substance. Higher concentrations of biotin may be found in multivitamins, hair/nail supplements, and workout supplements. If the result does not match clinical observations, repeat testing after patient refrains from the use of supplements for at least 12 hours. Blood (Blood, Venous) 12/19/2023 2:41 PM CDT 12/19/2023 9:38 PM CDT Silvia Robison M.D. LAB BLOOD ADD-O N [facility] [address] [place] [address], [facility] - [facility] [address] [place] [address] * Thyroid Function [place] (12/19/2023 2:41 PM CDT) TSH, Sensitive 1.1 0.3 - 4.2 mIU/L 12/19/2023 4:14 PM CDT [facility] Blood (Blood, Venous) 12/19/2023 2:41 PM CDT 12/19/2023 2:42 PM CDT Silvia Robison M.D. 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 [address] [place] [phone] PCP - General Family Medicine 10/03/23 documented as of this encounter
--- OUTSIDE RECORDS SUMMARY | 2023-12-27 21:36 | XMS_ITS | Encounter Summary ---
Author Organization [facility] Address [address] [place] [address] Care Team Providers Care Manager Surgery Name Role Phone Silvia Robison M.D. Primary Care Provider Reason for Visit * Reason Comments Illness Encounter Details Date Type Department Care Team ([facility] st Contact Info) Description 11/16/2023 12:18 PM CDT - 11/16/2023 12:39 PM CDT Emergency [facility] [address] [place] [phone] Splenomegaly Acquired (Primary Dx) Discharge Disposition: Home or Self Care Social History Tobacco Use Types Packs/Day Years Used Date Smoking Tobacco: Former Cigarettes 0.3 37.1 0 09/21/1983 - 10/31/2020 Passive Smoke Exposure: Current Smokeless Tobacco: Never Quit: 01/12/2018 Comments:1 pack per week Alcohol Use Standard Drinks/Week Comments No 0 (1 standard drink = 0.6 oz pur e alcohol) [facility] Utilities Answer Date Recorded In the past 12 months has [employer] electric, gas, oil, or water company threatened [...] often do you attend chur ch or confucianist services? Never 06/22/2022 Do you belong to any clubs o r organizations such as latter-day groups, unions, fraternal or athletic groups, or [...] Answer Date Recorded PHQ-2 Score 2 10/09/2023 [facility] of Occupat ional Health - Occupational Stress [...] your living situation today? I have a [facility] place to live 10/12/2023 Education Answer Date Recorded What is the highest level of school you have completed or the highest degree you have received? 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 270 capsule 05/10/2023 labetaloL 200 mg tablet Take 1 tablet [...] daily subcutaneously. 18 mL 3 10/16/2023 12/26/2023 documented as of this encounter Plan of Treatment Upcoming Encounters Date Type Department Care Team (Late st Contact Info) Description 01/07/2024 1:00 PM CDT Comprehensive Visit Department of Family Medicine, [facility], in [place], [place] [address] [place] [phone] Yazmin Rivas, SUYAPA, C.N.P., D.N.P. [address], [place] [phone] documented as of this encounter Procedures Procedure Name Priority Date/Time Associated Diagnosis Comments DX CHEST PORTABLE 1 VIEW RAD - Semiurgent (Fast; most ED patients; some inpatients) 11/16/2023 3:[address] ABDOMEN PELVIS WITH IV CONTRAST RAD - Semiurgent (Fast; most ED patients; some inpatients) 11/16/2023 2:40 PM CDT documented in this encounter Results * DX Chest Portable 1 View (11/16/2023 [...] APRN, C.N.P., M.S.N. IMG CT P ROCEDURES documented in this encounter Visit Diagnoses Diagnosis Splenomegaly Acquired- Primary documented in this encounter Administered Medications Inactive Administered Medications - up to 3 most recent administrations Medication Order MAR Action Action Date Dose Rate Site iohexoL 300 mg iodine/mL solution 100 mL (Omnipaque) 100 mL, intravenous, Once in imaging, contrast, Starting on 11/16/23 at 1417, For 1 dose Given 11/16/2023 2:28 PM CDT 94 mL L eft Forearm iohexoL 300 mg iodine/mL solution 100 mL (Omnipaque) 100 mL, intravenous, Once in imaging, contrast, Starting on 11/16/23 at 1417, For 1 dose Given 11/16/2023 2:28 PM CDT 100 mL L eft Forearm sodium chloride 0.9 % flush 100 mL 100 mL, intravenous, Once, On 11/16/23 at 1430, For 1 dose Given 11/16/2023 2:28 PM CDT 99 mL Left Forearm sodium chloride 0.9 % injection 10 mL 10 mL, intravenous, Once, On 11/16/23 at 1430, For 1 dose Given 11/16/2023 2:28 PM CDT 10 mL Left Forearm documented in this encounter Active and Recently Administered Medications Times are shown in CDT. Scheduled Medication Order 11/14/2023 11/15/2023 11/16/2023 sodium chloride 0.9 % flush 100 mL (COMPLETED) 100 mL, intravenous, Once, On 11/16/23 at 1430, For 1 dose 1428 (Given - Provid er: Remy Disla(Stacy)(CT), R.T.(R)) sodium chloride 0.9 % injection 10 mL (COMPLETED) 10 mL, intravenous, Once, On 11/16/23 at 1430, For 1 dose 1428 (Given - Provid er: Remy Disla(Stacy)(CT), R.T.(R)) PRN Medication Order 11/14/2023 11/15/2023 11/16/2023 iohexoL 300 mg iodine/mL solution 100 mL (Omnipaque) (COMPLETED) 100 mL, intravenous, Once in imaging, contrast, Starting on 11/16/23 at 1417, For 1 dose 1428 (Given - Provid er: Remy Disla(Stacy)(CT), R.T.(R)) iohexoL 300 mg iodine/mL solution 100 mL (Omnipaque) (COMPLETED) 100 mL, intravenous, Once in imaging, contrast, Starting on 11/16/23 at 1417, For 1 dose 1428 (Given - Provid er: Remy Disla(R)(CT), R.T.(R)) documented in this encounter Additional Health Concerns Assessment Noted Time PHQ-9 Depression Total Score: 15 024 9:47 AM CDT documented as of this encounter Care Teams Manager Surgery Relationship Specialty Start Date End Date Silvia Robison M.D. [address] [place] [phone] PCP - General Family Medicine 10/03/23 documented as of this encounter
--- OUTSIDE RECORDS SUMMARY | 2023-12-27 21:36 | XMS_ITS | Encounter Summary ---
Author Organization [facility] Address [address] [place] [address] Care Team Providers Care Photoengraving Helper Name Role Phone Silvia Robison M.D. Primary Care Provider Reason for Visit * Reason Onset Date Comments Med Question 12/27/2023 Encounter Details Date Type Department Care Team (Late st Contact Info) Description 12/27/2023 Clinical Communication Department of Family Medicine, [facility], in [place], [place] [address] [place] [phone] iSlvia Robison M.D. [address] [place] [phone] Med Question Social History Tobacco Use Types Packs/Day Years Used Date Smoking Tobacco: Former Cigarettes 0.3 37.1 0 09/21/1983 - 10/31/2020 Passive Smoke Exposure: Current Smokeless Tobacco: Never Quit: 01/12/2018 Comments:1 pack per week Alcohol Use Standard Drinks/Week Comments No 0 (1 standard drink = 0.6 oz pur e alcohol) [facility] Utilities Answer Date Recorded In [...] Answer Date Recorded PHQ-2 Score 2 10/09/2023 [facility] [place] of Occupat ional Health - Occupational Stress [...] your living situation today? I have a [facility] place to live 10/12/2023 Education Answer Date Recorded What is the highest level of school you have completed or the highest degree you have received? 12th grade 05/19/2019 Sex and Gender Information Value Date Recorded Sex Assigned at Male 08/16/2019 8:50 PM CDT Gender Identity Male 05/21/2020 12:19 PM [employer]KER Sexual Orientation Straight 07/10/2017 5: 27 PM CDT Job Start Date Occupation Industry Not on file Not on file Not on file documented as of this encounter Plan of Treatment Upcoming Encounters Date Type Department Care Team (Late st Contact Info) Description 01/07/2024 1:00 PM CDT Comprehensive Visit Department of Family Medicine, [facility], in [place], [place] [address], [place] [phone] Yazmin Rivas APRN, C.N.P., D.N.P. [address] [place] [phone] documented as of this encounter Visit Diagnoses Not on filedocumented in this encounter Additional Health Concerns Assessment Noted Time PHQ-9 Depression Total Score: 15 024 9:47 AM CDT documented as of this encounter Care Teams Photoengraving Helper Relationship Specialty Start Date End Date Silvia Robison M.D. [address] [place] [phone] PCP - General Family Medicine 10/03/23 documented as of this encounter
--- OUTSIDE RECORDS SUMMARY | 2023-12-27 21:36 | XMS_ITS | Clinical Summary ---
Author Organization [employer] [facility] Address [place], [place] [address] Care Team Providers Care Real Estate Appraiser Name Role Phone Silvia Robison MD Primary [...] by mouth two times daily. 11/30/2020 Active labetaloL (TRANDATE) 200 mg tablet Take 1 Tablet by mouth two times daily. 04/10/2022 Active cloNIDine HCL (CATAPRES) 0.1 mg tablet [...] daily. 10/09/2022 Active empagliflozin (Jardiance) 25 mg tabletIndications:Ty pe 2 diabetes mellitus without complication, with long-term current use of insulin (HC) Take 1 Tablet (25 mg) by mouth once daily. 90 Tablet 3 07/09/2023 Active pantoprazole (PROTONIX) 40 mg delayed-release tabletIndications:Ga stroesophageal reflux disease, unspecified whether esophagitis present Take 1 Tablet (40 mg) by mouth two times daily before meals. 180 Tablet 3 07/09/2023 Active meloxicam 15 mg tabletIndications:Mu scle spasm of right leg Take 1 Tablet (15 mg) by mouth once daily. 30 Tablet 5 07/15/2023 Active gabapentin (NEURONTIN) 300 mg capsuleIndications:M edian nerve neuropathy, unspecified laterality TAKE 1 CAPSULE BY MOUTH EVERY MORNING, 2 CAPSULES AT NOON, AND 3 CAPSULES AT BEDTIME 180 Capsule 1 11/09/2023 Active buPROPion (WELLBUTRIN XL) 150 mg Extended-Release tablet Take 1 Tablet by mouth once daily in the morning. 03/09/2022 Active amLODIPine (NORVASC) 10 mg tablet Take 1 Tablet by mouth once daily. 11/08/2023 Active atorvastatin (LIPITOR) 20 mg tablet Take 1 Tablet by mouth once daily. 11/08/2023 Active lisinopriL (PRINIVIL; ZESTRIL) 40 mg tablet Take 1 Tablet by mouth once daily. 11/08/2023 Active ondansetron (ZOFRAN ODT) 4 mg disintegrating tabletIndications:Na usea Place 1 Tablet (4 mg) on the tongue every 8 hours if needed for Nausea/Vomiting. 6 Tablet 11/16/2023 Active Active Problems Problem Noted Date Diagnosed Date Abnormal levels of other serum enzymes 3 Overview: -noted on previous lab draws versus dating back to 2019 Last Assessment & Plan: -continue to monitor. -consider liver ultrasound to assess for nonalcoholic fatty liver disease -consider viral hepatitis panel Depressive disorder 05/17/2022 Overview: 22 April 2022: PHQ = 24 -patient tells me he has previously been on Paxil, lithium, Trileptal and was diagnosed with bipolar in [place]. -many acute stressors such as needing to [...] future visits Hypertensive kidney disease, stage III 3 Overview: 02/2021: Average blood pressure was elevated [...] Overview: Added automatically from request for surgery [id number] Added automatically from request for surgery [id number] Type 2 diabetes mellitus without complication Overview: [...] daily Protonix 40 b.i.d. 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 03/09/2023 Overview: Gabapentin 300 am, 600 pm, 900 HS Meloxicam 15 mg Gabapentin 300 am, 600 pm, 900 HS Meloxicam 15 mg Encounters Date Type Department Care Team Description 11/29/2023 Telephone [facility] [address] [place] [address] Silvia Robison MD Questions (Glasses) 11/18/2023 Telephone [facility] [address] [place] [address] Hortencia Roberts LSW ER Follow up 11/16/2023 12:39 PM CDT - 11/16/2023 3:46 PM CDT Emergency [facility] [address] [place] [address] Marshal Hartman NP Lesion of right [place] kidney (Primary Dx); Splenomegaly; Acute otitis externa of left ear, unspecified type; Nausea Discharge Disposition: Home Self Care 11/16/2023 Travel 11/07/2023 Refill [facility] [address] [place] [address] Drake Cook MD Refill Request (Gabapentin) from Last 3 Months Immunizations Name Administration [...] Sign Reading Time Taken Comments Blood Pressure 169/96 11/16/2023 3:15 PM CDT Pulse 75 11/16/2023 3:15 PM CDT Temperature 36.6 ??C (97.8 ??F) 11/16/2023 12:41 PM C DT Respiratory Rate 18 11/16/2023 12:41 PM CDT Oxygen Saturation 99% 11/16/2023 3:15 PM CDT Inhaled Oxygen Concentration - - Weight 122.5 kg (270 lb) 11/16/2023 12:40 PM CDT Height 195.6 cm (6' 5) 11/16/2023 12:40 PM CDT Body Mass Index 32.02 11/16/2023 12:40 PM CDT Plan of Treatment Health Maintenance Due Date Last Done Comments HIV for age 15-65 10/14/1987 Hepatitis C screening for ag e 18-79 1990 Colonoscopy through age 75 2017 Zoster (shingles) series for age 50+ (1 of 2) 2022 COVID-19 vaccine series (2022- season) 2023 05/01/2021, 03/03/2021 Influenza for age 50-64 12/22/2023 [...] Procedure Name Priority Date/Time Associated Diagnosis Comments GLUCOSE METER Routine 11/16/2023 3:16 PM CDT XR CHEST 1 VIEW PORTABLE STAT 11/16/2023 3:[address] ABDOMEN PELVIS W STAT 11/16/2023 2 :44 PM CDT CBC WITH AUTO DIFFERENTIAL STAT 11/16/2023 1:20 PM CDT BETA HYDROXYBUTYRATE IN HOUSE STAT 11/16/2023 1:20 PM CDT BLOOD GAS,VENOUS STAT 11/16/2023 1:20 PM CDT LIPASE STAT 11/16/2023 1:20 PM CDT COMP METABOLIC PANEL STAT 11/16/2023 1:20 PM CDT CBC WITH AUTO DIFFERENTIAL STAT 11/16/2023 1:20 PM CDT URINALYSIS MICROSCOPIC STAT 1:14 PM CDT COVID-19 MOLECULAR Today 11/16/2023 1: 14 PM CDT UA W/ SEDIMENT EXAM REFLEXED PER CRITERIA STAT 11/16/2023 1:14 PM CDT LIPID PANEL W REFLEX MEASURED LDL Routine 07/09/2023 10:31 AM CDT Hyperlipidemia, unspecified hyperlipidemia type from Last 3 Months or Most Recently Relevant to Health Maintenance Results * (ABNORMAL) GLUCOSE METER (11/16/2023 3:16 PM CDT) [facility] Signature GLUCOSE METER 449(H) 65 - 100 mg/dL 11/16/2023 3:17 PM CDT [facility] Blood BLOOD SPECIMEN / Unknown 11/16/2023 3:16 PM CDT 11/16/2023 3:17 PM CDT Marshal Hartman NP CHEMISTRY [facility] [address] [address] * XR CHEST 1 VIEW PORTABLE (11/16/2023 3:05 PM CDT) Anatomical Region Laterality Modality HEART, THORAX, CHEST Digital Rad iography Marshal Hartman NP GENERAL IMAGING * CT Abdomen Pelvis w IV (Oral Contrast NO) (11/16/2023 2:44 PM CDT) Anatomical Region Laterality Modality Abdomen, Pelvis, AORTA, LIVER, SPLEEN Computed Tomography Marsahl Hartman ADMINISTRATIVE OPERATIONS COORDINATOR CT * (ABNORMAL) CBC WITH AUTO DIFFERENTIAL (11/16/2023 1:20 PM T) WHITE BLOOD COUNT 7.4 4.5 - 11.0 thou/cu mm 11/16/2023 1:29 PM [facility] RED BLOOD COUNT 4.33 4.30 - 5.90 mil/cu mm 11/16/2023 1:29 PM [facility] HEMOGLOBIN 13.2(L) 13.5 - 17.5 g/dL 11/16/2023 1:29 PM [facility] HEMATOCRIT 39.4 37.0 - 53.0 % 11/16/2023 1:29 PM [facility] MCV 91 80 - 100 fL 11/16/2023 1:29 PM [facility] MCH 30.5 26.0 - 34.0 pg 11/16/2023 1:29 PM [facility] MCHC 33.5 32.0 - 36.0 g/dL 11/16/2023 1:29 PM [facility] RDW 14.6 11.5 - 15.5 % 11/16/2023 1:29 PM [facility] PLATELET COUNT 184 140 - 440 thou/cu mm 11/16/2023 1:29 PM [facility] MPV 12.0(H) 6.5 - 11.0 fL 11/16/2023 1:29 PM [facility] % NEUT 64.4 % 11/16/2023 1:29 PM [facility] % LYMPH 21.3 % 11/16/2023 1:29 PM [facility] % MONO 8.4 % 11/16/2023 1:29 PM [facility] % EOS 5.4 % 11/16/2023 1:29 PM [facility] % BASO 0.5 % 11/16/2023 1:29 PM CDT [facility] ABSOLUTE NEUTROPHILS 4.7 1.7 - 7.0 thou/cu mm 11/16/2023 1:29 PM T [facility] ABSOLUTE LYMPHOCYTES 1.6 0.9 - 2.9 thou/cu mm 11/16/2023 1:29 PM T [facility] ABSOLUTE MONOCYTES 0.6 <0.9 thou/cu mm 11/16/2023 1:29 PM [facility] ABSOLUTE EOSINOPHILS 0.4 <0.5 thou/cu mm 11/16/2023 1:29 PM T [facility] ABSOLUTE BASOPHILS 0.0 <0.3 thou/cu mm 11/16/2023 1:29 PM [facility] Blood BLOOD SPECIMEN / Unknown IV Start / Unknown 11/16/2023 1:20 PM CDT 11/16/2023 1:24 PM CDT Marshal Hartman NP HEMATOLOGY Performing Organization Address City/[facility]/ZIP Co de Phone Number [facility] [address] [phone] * BETA HYDROXYBUTYRATE IN HOUSE (11/16/2023 1:20 PM CDT) BETA HYDROXYBUTYRATE <0.6 <0.6 mmol/L 11/16/2023 1:29 PM [facility] Blood BLOOD SPECIMEN / Unknown IV Start / Unknown 11/16/2023 1:20 PM CDT 11/16/2023 1:28 PM CDT Marshal Hartman ADMINISTRATIVE OPERATIONS COORDINATOR SEND OUTS Performing Organization Address [facility] Co de Phone Number [facility] [address] [phone] * (ABNORMAL) BLOOD GAS,VENOUS (11/16/2023 1:20 PM CDT) PH, VENOUS 7.39 7.32 - 7.43 11/16/2023 1:27 PM CDT [facility] PCO2, VENOUS 34(L) 41 - 51 mmHg 11/16/2023 1:27 PM T [facility] PO2, VENOUS 46(H) 35 - 40 mmHg 11/16/2023 1:27 PM T [facility] HCO3,VENOUS 21(L) 22 - 29 mmol/L 11/16/2023 1:27 PM T [facility] BASE EXCESS, VENOUS, POCT -3.6(L) -2.0 - 3.0 11/16/2023 1:27 PM [facility] O2 SATURATION, VENOUS 79(H) 70 - 75 % 11/16/2023 1:27 PM T [facility] PATIENT TEMPERATURE 37.0 Degrees C 11/16/2023 1:27 PM [facility] Blood VENOUS BLOOD SPECIMEN / Unknown IV Start / Unknown 11/16/2023 1:20 PM CDT 11/16/2023 1:24 PM CDT Marshal Hartman ADMINISTRATIVE OPERATIONS COORDINATOR CHEMISTRY Performing Organization Address City/[facility]/ZIP Co de Phone Number [facility] [address] [place] [phone] * (ABNORMAL) Lipase (11/16/2023 1:20 PM CDT) LIPASE 69.8(H) 13.0 - 60.0 IU/L 11/16/2023 1:51 PM T [facility] Blood BLOOD SPECIMEN / Unknown IV Start / Unknown 11/16/2023 1:20 PM CDT 11/16/2023 1:24 PM CDT Marshal Hartman ADMINISTRATIVE OPERATIONS COORDINATOR CHEMISTRY Performing Organization Address [facility] Co de Phone Number [address] [phone] * (ABNORMAL) Comp Metabolic Panel (11/16/2023 1:20 PM CDT) SODIUM 128(L) 136 - 145 mmol/L 11/16/2023 2:15 PM T [facility] POTASSIUM 5.2(H) 3.5 - 5.1 mmol/L 11/16/2023 2:15 PM [facility] CHLORIDE 94(L) 98 - 107 mmol/L 11/16/2023 2:15 PM [facility] CO2,TOTAL 19(L) 22 - 29 mmol/L 11/16/2023 2:15 PM [facility] ANION GAP 15 5 - 18 11/16/2023 2:15 PM [facility] GLUCOSE 725(HH) 70 - 99 mg/dL 11/16/2023 2:15 PM [facility] CALCIUM 9.4 8.6 - 10.0 mg/dL 11/16/2023 2:15 PM [facility] BUN 17 6 - 20 mg/dL 11/16/2023 2:15 PM [facility] CREATININE 1.46(H) 0.70 - 1.20 mg/dL 11/16/2023 2:15 [facility] BUN/CREAT RATIO 12 10 - 20 2:15 PM [facility] eGFR 58(L) >90 mL/min/1.7 3m2 11/16/2023 2:15 PM [facility] Comment:As of 2021, eG FR is calculated by the CKD-EPI creatinine equation without race adjustment. ??eGFR can be influenced by muscle mass, exercise, and diet. ??The reported eGFR is an estimation only and is only applicable if the renal function is stable. ALBUMIN 4.4 4.0 - 4.9 g/dL 11/16/2023 2:15 PM [facility] PROTEIN,TOTAL 6.9 6.0 - 8.0 g/dL 11/16/2023 2:15 PM [facility] BILIRUBIN,TOTAL 0.5 0.0 - 1.2 mg/dL 11/16/2023 2:15 PM [facility] ALK PHOSPHATASE 118 40 - 129 IU/L 11/16/2023 2:15 PM [facility] ALT (SGPT) 44 10 - 50 IU/L 11/16/2023 2:15 PM [facility] AST (SGOT) 37 10 - 50 IU/L 11/16/2023 2:15 PM CDT [facility] Blood BLOOD SPECIMEN / Unknown IV Start / Unknown 11/16/2023 1:20 PM CDT 11/16/2023 1:24 PM CDT Marshal Hartman NP CHEMISTRY Performing Organization Address [facility] Co de Phone Number [address] [phone] * COVID-19 MOLECULAR (11/16/2023 1:14 PM CDT) COVID 19 [place] MOLECULAR Not detected Not detected 11/16/2023 1:57 PM CDT [facility] TESTING LABORATORY [facility] 11/16/2023 1:57 PM CDT [facility] Comment:Specimen submitted t o [facility] for testing. Other SPECIMEN FROM NASOPHARYNGEAL STRUCTURE / Unknown Non-Blood / Unknown 11/16/2023 1:14 PM CDT 11/16/2023 1:33 PM CDT Marshal Hartman NP MICROBIOLOGY Performing Organization Address [facility] Co de Phone Number [address] [phone] * URINALYSIS MICROSCOPIC (11/16/2023 1:14 PM CDT) RBC None Seen 0-2, None Seen /HPF 11/16/2023 1:44 PM CDT [facility] WBC 0-2 0-2, 3-5, None Seen /HPF 11/16/2023 1:44 PM T [facility] BACTERIA Rare None Seen, Rare, Few Bacteria/H PF 11/16/2023 1:44 PM CDT [facility] EPITHELIAL CELLS Few None Seen, Few Epi/HPF 11/16/2023 1:44 PM CDT [facility] Urine URINE SPECIMEN / Unknown Non-Blood / Unknown 11/16/2023 1:14 PM CDT 11/16/2023 1:33 PM CDT Marshal Hartman ADMINISTRATIVE OPERATIONS COORDINATOR URINE Performing Organization Address City/[facility]/ZIP Co de Phone Number [facility] [address] [phone] * (ABNORMAL) Urinalysis W Reflex Microscopic if Positive (11/16/2023 1:14 PM CDT) COLOR Yellow Yellow Color 11/16/2023 1:39 PM CDT [facility] CLARITY Clear Clear Clarity 11/16/2023 1:39 PM CDT [facility] SPECIFIC GRAVITY,URINE <=1.005(A) 1.010, 1.015, 1.020, 1.025 11/16/2023 1:39 PM T [facility] PH,URINE 5.5 6.0, 7.0, 8.0, 5.5, 6.5, 7.5, 8.5 11/16/2023 1:39 PM T [facility] UROBILINOGEN, QUALITATIVE Normal Normal EU/dl 11/16/2023 1:39 PM CDT [facility] PROTEIN, URINE Negative Negative mg/dL 11/16/2023 1:39 PM T [facility] GLUCOSE, URINE >=1000(A) Negative mg/dL 11/16/2023 1:39 PM T [facility] KETONES,URINE Negative Negative mg/dL 11/16/2023 1:39 PM CDT [facility] BILIRUBIN,URI NE Negative Negative 11/16/2023 1:39 PM CDT [facility] OCCULT BLOOD,URINE Negative Negative 11/16/2023 1:39 PM T [facility] NITRITE Negative Negative 11/16/2023 1:39 PM T [facility] LEUKOCYTE ESTERASE Negative Negative 11/16/2023 1:39 PM [facility] Urine URINE SPECIMEN / Unknown Non-Blood / Unknown 11/16/2023 1:14 PM CDT 11/16/2023 1:33 PM CDT Marshal Hartman ADMINISTRATIVE OPERATIONS COORDINATOR URINE [facility] [address], [place] [address] * (ABNORMAL) LIPID PANEL W REFLEX MEASURED LDL (07/09/2023 10:31 AM CDT) CHOLESTEROL,TOTAL 132 100 - 199 mg/dL 07/09/2023 2:52 PM CDT [facility] [employer] [facility] Comment: Cholesterol, Total Reference Ranges Desirable <200 mg/dL Borderline 200-239 mg/dL High >=240 mg/dL TRIGLYCERIDES 225(H) <150 mg/dL 07/09/2023 2:52 PM CDT [facility] [employer] [facility] HDL CHOLESTEROL 35(L) >40 mg/dL 2:52 PM CDT [facility] NON-HDL CHOLESTEROL 97 <145 mg/dl 07/09/2023 2:52 PM CDT [facility] CHOL/HDL RATIO 3.77 <4.50 07/09/2023 2:52 PM CDT [facility] LDL CHOLESTEROL 52 <=130 mg/dL 07/09/2023 2:52 PM CDT [facility] VLDL CHOLESTEROL 45(H) <=30 mg/dL 07/09/2023 2:52 PM CDT [facility] PROVIDER ORDERED STATUS FASTING 07/09/2023 2:52 PM CDT [facility] [employer] [facility] Blood BLOOD SPECIMEN / Unknown Venipuncture / Unknown 07/09/2023 10:31 AM CDT 07/09/2023 10:32 AM CDT Leeroy MONTGOMERY CHEMISTRY [facility] [employer] [facility] [address] [place] [address], from Last 3 Months or Most Recently Relevant to Health Maintenance Care Teams Real Estate Appraiser Relationship Specialty Start Date End Date Silvia Robison MD [address] [place] [address] PCP - General Family Practice 09/02/23
--- OUTSIDE RECORDS SUMMARY | 2023-12-27 21:36 | XMS_ITS | Encounter Summary ---
Author Organization [facility] Address [address] [place] [address] Care Team Providers Care Geophysical Computer Name Role Phone Silvia Robison M.D. Primary Care Provider Encounter Details Date Type Department Care Team (Latest Contact Info) Description 12/19/2023 2:06 PM CDT - 12/19/2023 11:59 PM CDT Hospital Encounter Department of Laboratory Medicine in [place], [place] [address], [place] [address] Silvia Robison M.D. [address] [phone] Kidney And Ureter Disorder; Lesion Kidney Discharge Disposition: Home or Self Care Social History Tobacco Use Types Packs/Day Years Used Date Smoking Tobacco: Former Cigarettes 0.3 37.1 0 09/21/1983 - 10/31/2020 Passive Smoke Exposure: Current Smokeless Tobacco: Never Quit: 01/12/2018 Comments:1 pack per week Alcohol Use Standard Drinks/Week Comments No 0 (1 standard drink = 0.6 oz pur e alcohol) [facility] Utilities Answer Date Recorded In [...] often do you attend chur ch or quaker services? Never 06/22/2022 Do you belong to any clubs o r organizations such as denominational groups, unions, fraternal or athletic groups, or [...] Answer Date Recorded PHQ-2 Score 2 10/09/2023 [facility] [place] of Occupat ional Health - Occupational Stress [...] your living situation today? [facility] have a [facility] place to live 10/12/2023 Education Answer Date Recorded What is the highest level of school you have completed or the highest degree you have received? 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 [address], [place] [phone] documented as of this encounter Procedures Procedure Name Priority Date/Time Associated Diagnosis Comments URINALYSIS WITH MICROSCOPIC Routine 12/19/2023 2:28 PM CDT Kidney And Ureter Disorder Lesion Kidney documented in this encounter Results * (ABNORMAL) Urinalysis, with Microscopic: Urine, Midstream [...] 8.0 12/19/2023 2:54 PM CDT OWAT Specific [place] >1.035(A) 1.001 - 1.035 12/19/2023 2:54 PM [...] M.D. LAB URINE ORDER [facility] [address] [place] [address], [facility] [place] [address] [place] [address] documented in this encounter Visit Diagnoses Diagnosis Kidney And Ureter Disorder Lesion Kidney documented in this encounter Additional Health Concerns Assessment Noted Time PHQ-9 Depression Total Score: 15 024 9:47 AM CDT documented as of this encounter Care Teams Geophysical Computer Relationship Specialty Start Date End Date Silvia Robison M.D. [address] [place] [phone] PCP - General Family Medicine 10/03/23 documented as of this encounter
--- OUTSIDE RECORDS SUMMARY | 2023-12-27 21:36 | XMS_ITS | Encounter Summary ---
Author Organization [facility] Address [address] [place] [address] Care Team Providers Care Electric Melt Operator Name Role Phone Silvia Robison M.D. Primary Care Provider Reason for Visit * Reason Comments Med Refill Encounter Details Date Type Department Care Team (Late st Contact Info) Description 10/09/2023 Refill Department of Family Medicine, [facility], in [place], [place] [address] [place] [phone] Silvia Robison M.D. [address] [place] [phone] Med Refill Social History Tobacco Use Types Packs/Day Years Used Date Smoking Tobacco: Former Cigarettes 0.3 37.1 0 09/21/1983 - 10/31/2020 Passive Smoke Exposure: Current Smokeless Tobacco: Never Quit: 01/12/2018 Comments:1 pack per week Alcohol Use Standard Drinks/Week Comments No 0 (1 standard drink = 0.6 oz pur e alcohol) [facility] Utilities Answer Date Recorded In the [...] often do you attend chur ch or rastafari services? Never 06/22/2022 Do you belong to any clubs o r organizations such as hindu groups, unions, fraternal or athletic groups, or [...] Answer Date Recorded PHQ-2 Score 2 10/09/2023 [facility] of Occupat ional Health - Occupational Stress [...] your living situation today? I have a [facility] place to live 10/12/2023 Education Answer Date Recorded What is the highest level of school you have completed or the highest degree you have received? 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 [address] [place] [phone] documented as of this encounter Visit Diagnoses Diagnosis Diabetes Mellitus Type 2 Hyperglycemia (HCC) documented in this encounter Additional Health Concerns Assessment Noted Time PHQ-9 Depression Total Score: 15 024 9:47 AM CDT documented as of this encounter Care Teams Electric Melt Operator Relationship Specialty Start Date End Date Silvia Robison M.D. [address] [place] [phone] PCP - General Family Medicine 10/03/23 documented as of this encounter
== END 2023-12-27 21:40 | disposition home or self-care (01) ==
PROVIDERS: Emergency Provider Family Medicine
DX: M54.2 Cervicalgia (principal)
CPT/HCPCS: 99283; 99284

== ENCOUNTER 2024-01-27 13:47 | Emergency (ER) | payer OTHER, SELFPAY ==
[2024-01-27 13:57] VITALS: BP 141/89; PULSE 88; RESP 18; TEMP 36.7; O2SAT 98; BMI 32.0
--- NOTE | 2024-01-27 14:05 | ED_ITS ---
HPI - General Adult General Chief complaint: Unspecified Complaint, Adult Stated complaint: possible UTI, left ear drainage Time Seen by Provider: 01/27/24 14:03 History of Present Illness HPI narrative: Pt here for eval of dysuria , frequency, low abdominal cramping x2 days and L ear draining green/ yellow foul?smelling liquid x1wk. Also states he has had congested sinuses x1wk. Tmax 100.4. 53-year-old man presenting to the emergency department with a number of concerns. He has been experiencing dysuria and frequency low abdominal cramping for a couple of days maybe longer. Denies that there is any risk of STI. Does have a history of diabetes. He notes that his blood sugar this morning though was 136. Was changed from Jardiance to glipizide I believe. Seems to swing between constipation and diarrhea though he had endorses having some loose stools here most recently. He has been having some draining from his left ear which seems to come and go relatively chronically. Even as a kid had to have this 1 rinsed out. No pond water exposure. Just showering. Has also been congested with increasing pain is sinuses for over a week. Probably has some environmental or seasonal allergies. Related Data Home Medications ?Medication ?Instructions ?Recorded ?Confirmed allopurinol 100 mg tablet 100 mg PO BID 12/27/22 11/08/23 amlodipine 10 mg tablet 10 mg PO DAILY 12/27/22 11/08/23 atorvastatin 20 mg tablet 20 mg PO DAILY 12/27/22 11/08/23 bupropion HCl 150 mg 24 hr tablet, 150 mg PO QAM 12/27/22 11/08/23 extended release clonidine HCl 0.1 mg tablet 0.1 mg PO BID 12/27/22 11/08/23 gabapentin 300 mg capsule 300 mg PO TID 12/27/22 11/08/23 insulin glargine 100 unit/mL 18 unit subcut QPM 12/27/22 01/27/24 subcutaneous solution (Lantus U-100 Insulin) labetalol 200 mg tablet 200 mg PO BID 12/27/22 11/08/23 lisinopril 40 mg tablet 40 mg PO DAILY 12/27/22 11/08/23 meloxicam 15 mg tablet 15 mg PO DAILY 12/27/22 11/08/23 metformin 500 mg tablet,extended 1,000 mg PO BID 12/27/22 01/27/24 release 24 hr pantoprazole 40 mg tablet,delayed 40 mg PO Q12H 12/27/22 11/08/23 release glipizide 5 mg tablet 5 mg PO 01/27/24 Previous Rx's ?Medication ?Instructions ?Recorded furosemide 40 mg tablet (Lasix) 40 mg PO BID #14 tabs 01/03/23 cyclobenzaprine 10 mg tablet 10 mg PO TID PRN muscle tension 12/27/23 #15 tabs prednisone 20 mg tablet 40 mg (2 x 20 mg) PO DAILY 5 days 12/27/23 #10 tabs amoxicillin 875 mg tablet 875 mg PO BID #24 tabs 01/27/24 prednisone 20 mg tablet 40 mg (2 x 20 mg) PO DAILY 5 days 01/27/24 #10 tabs Allergies Allergy/AdvReac Type Severity Reaction Status Date / Time coconut Allergy Mild Hives Verified 11/08/23 20:20 morphine Allergy Mild Hives Verified 11/08/23 20:20 Sulfa (Sulfonamide Allergy Mild Hives Verified 11/08/23 20:20 Antibiotics) Review of Systems Status of ROS: Reports: 6 or more systems reviewed and unremarkable except as noted in History and below [facility] Social History Smoking Status: Former smoker Second hand tobacco smoke exposure: No How often do you have a drink containing alcohol: never How often do you have six or more drinks on one occasion: Never AUDIT-C Alcohol total score: 0 Non-prescribed substance use: denies use Exam Narrative: Exam Narrative: Pleasantly talkative. NAD. Sounds a little bit congested. He is sore to palpation over the maxillary sinuses. Extraocular movements are full. Pupils are equal. Right TM is unremarkable left TM obscured by edematous cerumen. He has no tragus tenderness on the left side. Not able to visualize any erythema within the canal. A little sore to palpation about the upper sternocleidomastoid on the left. Lungs are clear. Heart in regular rate and rhythm. Abdomen is overweight and soft. Little sore to palpation across the pelvis. No mass appreciated. Extremities are well perfused without edema. Const: Vital Signs, click to edit/add: Vital Signs - 24 hr 01/27/24 13:57 Temperature 98.0 F Pulse Rate [Pulse Oximeter] 88 Respiratory Rate 18 Blood Pressure [Ri ght Upper Arm] 141/89 H Pulse Oximetry 98 Oxygen Delivery Me thod Room Air Documenting provider has reviewed patient's vital signs: yes Course Vital Signs Vital signs: Initial Vital Signs Temperature 98.0 F 01/27/24 13:57 Temperature Source Temporal Artery Scan 01/27/24 13:57 Pulse Rate 88 01/27/24 13:57 Pulse Rhythm Regular 01/27/24 13:57 Respiratory Rate 18 01/27/24 13:57 Blood Pressure 141/89 H 01/27/24 13:57 Blood Pressure Mean 106 H 01/27/24 13:57 Blood Pressure Position Sitting 01/27/24 13:57 Pulse Oximetry 98 01/27/24 13:57 Oxygen Delivery Method Room Air 01/27/24 13:57 Vital Signs Temperature 98.0 F 01/27/24 13:57 Pulse Rate 88 01/27/24 13:57 Respiratory Rate 18 01/27/24 13:57 Blood Pressure 141/89 H 01/27/24 13:57 Pulse Oximetry 98 01/27/24 13:57 Oxygen Delivery Method Room Air 01/27/24 13:57 Temperature 98.0 F 01/27/24 17:20 Pulse Rate 88 01/27/24 17:20 Respiratory Rate 18 01/27/24 17:20 Blood Pressure 141/89 H 01/27/24 17:20 Pulse Oximetry 99 01/27/24 17:00 Oxygen Delivery Method Room Air 01/27/24 13:57 Medical Decision Making MDM Narrative Medical decision making narrative: Would do a bladder scan see if this is some overflow incontinence or could be contributing to his discomfort. Blood sugars are in reasonable control per his report. Check urinalysis. This should be a 1st void. He does also mention that there was some question of BPH? 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 This might be interstitial cystitis, non infectious. Postvoid bladder scan is around 49 mL I believe. Urinalysis with elevated specific gravity and trace white cells. We did attempt to irrigate Mr. Carter's left ear. There was no notable change in symptoms nor appearance of his ear. Would treat for sinusitis at this point. Outpatient management of his ear prepping with softening drops. I do not know what to make of this abdominal discomfort at this point. Does not seem consistent with what I would normally see with mesenteric adenitis. P erhaps it is partly related to the looser stools that he has been having more recently, some colic? We are in agreement that further workup at this point can be deferred. I expect urine culture pending. See patient discharge plan for further discussion Medical Records Medical records reviewed: Yes I reviewed the patient's medical records Lab Data Lab results reviewed: Yes I reviewed the patient's lab results Labs: Lab Results 01/27/24 Range/Units 14:04 Urine Color Yellow (Yellow) Urine Appearance Clear (Clear) Urine pH 6.0 (5.0-8.5) Ur Specific Sigel >= 1.030 (1.000-1.030) Urine Protein Negative (Negative) Urine Glucose (UA) Trace A (Negative) Urine Ketones Negative (Negative) Urine Blood Negative (Negative) Urine Nitrite Negative (Negative) Urine Bilirubin Negative (Negative) Urine Urobilinogen 0.2 (0.2-1.0) Ur Leukocyte Esterase Negative (Negative) Urine RBC 0-2 (0-2) Urine WBC 2-5 (0-5) Ur Squamous Epith Cells Few (None-Few) Urine Bacteria Few A (None) Discharge Plan Discharge Clinical Impression: Sinusitis, Impacted cerumen of left ear, Dysuria Patient Disposition: Home w/ Parent or Adult Condition: Stable Additional Instructions: Urinary frequency certainly can be related to the prostate either from infection or urinary retention. You do not appear to have a urinary tract infection at this time. You do not appear to be retaining urine at this time. Your blood sugars also are not really out of control. Watch for localizing abdominal pain, persistent fever, marked increase in pain. For your ear; I would place Debrox drops into your ear a couple of times daily for a week and then consider irrigation as discussed. And/or follow-up with ENT at some point. For your sinuses; I would initiate a course of amoxicillin at this point. Also sending in prednisone which is typically further helpful. Both from [facility] Prescriptions: New amoxicillin 875 mg tablet 875 mg PO BID Qty: 24 0RF prednisone 20 mg tablet 40 mg PO DAILY 5 Days Qty: 10 0RF Rx Instructions: days 11-21 of therapy No Action clonidine HCl 0.1 mg tablet 0.1 mg PO BID atorvastatin 20 mg tablet 20 mg PO DAILY labetalol 200 mg tablet 200 mg PO BID insulin glargine [Lantus U-100 Insulin] 100 unit/mL solution 18 unit subcut QPM meloxicam 15 mg tablet 15 mg PO DAILY allopurinol 100 mg tablet 100 mg PO BID amlodipine 10 mg tablet 10 mg PO DAILY pantoprazole 40 mg tablet,delayed release (DR/EC) 40 mg PO Q12H gabapentin 300 mg capsule 300 mg PO TID Rx Instructions: TAKE 1 CAPSULE BY MOUTH IN THE MORNING, 2 CAPSULES IN THE AFTERNOON, AND 3 CAPSULES AT BEDTIME lisinopril 40 mg tablet 40 mg PO DAILY metformin 500 mg tablet extended release 24 hr 1,000 mg PO BID bupropion HCl 150 mg tablet extended release 24 hr 150 mg PO QAM furosemide [Lasix] 40 mg tablet 40 mg PO BID Qty: 14 0RF prednisone 20 mg tablet 40 mg PO DAILY 5 Days Qty: 10 1RF cyclobenzaprine 10 mg tablet 10 mg PO TID PRN (Reason: muscle tension) Qty: 15 1RF glipizide 5 mg tablet 5 mg PO Follow Up/Referrals: Provider,Not a Local [Primary Care Provider] - Stand Alone [facility]: [facility] Inst[facility]
[2024-01-27 14:11] LABS: Appearance Urine Clear (Clear); Bilirubin Urine Negative (Negative); Blood Urine Negative (Negative); Color Urine Yellow (Yellow); Glucose Urine Trace (Negative); Ketones Urine Negative (Negative); Leukocyte Esterase Urine Negative (Negative); Nitrite Urine Negative (Negative); Protein Urine Negative (Negative); Specific Gravity Urine >= 1.030 (1.000-1.030); Urobilinogen Urine 0.2 (0.2-1.0)
--- OUTSIDE RECORDS SUMMARY | 2024-01-27 14:33 | XMS_ITS ---
Author Organization [facility] Address [address] [place] [address] Care Team Providers Care Senior Ux Designer Name Role Phone Unavailable Unavailable Unavailable Surgery Details Not on file Complications Check Surgery Details section. Procedure Estimated Blood Loss Check Surgery Details section. Procedure Findings Check Surgery Details section. Procedure Specimens Taken Check Surgery Details section.
--- OUTSIDE RECORDS SUMMARY | 2024-01-27 14:33 | XMS_ITS | Referral Summary ---
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 Primary Care Provider Source Comments Patient records contain information from all sites at [facility]. For routine questions regarding patient records, call [phone] during business hours, M-F 8:00 AM - 5:00 PM Central Time. Record requests for emergency care only can be directed to [phone] at any time.[facility] Encounters Date Type Department Care Team Description 12/31/2023 Clinical Communication Department of Family Medicine, [facility], in [place], [place] [address] [phone] Silvia Robison M.D. Medication Problem (Quantities of 10 mL) 12/31/2023 Orders Only Department of Family Medicine, [facility], in [place], [place] [address] [place] [phone] Ruchi Sharma M.D. Diabetes Mellitus Type 2 Hyperglycemia (HCC) 12/27/2023 Clinical Communication Department of Family Medicine, [facility], in [place], [place] [address] [address] Silvia Robison M.D. Med Question 12/26/2023 Orders Only Department of Family Medicine, [facility], in [address] [address] Ruchi Sharma M.D. Diabetes Mellitus Type 2 Hyperglycemia (HCC) 12/26/2023 Clinical Communication Department of [facility], [facility], in [address] [phone] Silvia Robison M.D. Med Question 12/19/2023 Clinical Communication Department of Occupational Medicine in [address] [phone] Flaca Franco P.A.-C., P.A., M.S. 12/19/2023 2:06 PM CDT - 12/19/2023 11:59 PM CDT Hospital Encounter Department of Laboratory Medicine in [address] [phone] Silvia Robison M.D. Kidney And Ureter Disorder; Lesion Kidney Discharge Disposition: Home or Self Care 12/19/2023 1:57 PM CDT - 12/19/2023 2:05 PM CDT Hospital Encounter Department of Laboratory Medicine in [address] [address] Silvia Robison M.D. Hyperlipidemia On Treatment; Hypertension Essential Primary; Kidney And Ureter Disorder; Lesion Kidney; Dysfunction Erectile; Diabetes Mellitus Type 2 Hyperglycemia (HCC) Discharge Disposition: Home or Self Care 12/17/2023 Orders Only [facility] [address] [place] [address] Silvia Robison M.D. Screening Cancer Colon 12/03/2023 Orders Only [facility] [address] [place] [address] Silvia Robison M.D. Screening Cancer Colon 11/16/2023 12:18 PM CDT - 11/16/2023 12:39 PM CDT Emergency [facility] [address] [place] [address] Splenomegaly Acquired (Primary Dx) Discharge Disposition: Home or Self Care 11/07/2023 Refill Department of Family Medicine, [facility], in [place], [place] [address] [place] [address] Silvia Robison M.D. Med Refill from Last [...] for diabetes control. 1 each 1 Active blood sugar diagnostic strips 2 test daily. 200 test 3 3 Active pantoprazole (PROTONIX) 40 mg EC tablet Take 1 tablet (40 mg total) by mouth 2 (two) times a day before breakfast and dinner. 180 tablet 3 3 Active meloxicam (MOBIC) 15 mg tabletIndications: Pain Back,Pain Leg Right Take 1 tablet (15 mg total) by mouth daily. 90 tablet 3 3 Active chlorhexidine (PERIDEX) 0.12 % mouthwash Swish and spit 15 mL 2 (two) times a day. Swish and spit 15 mL 2 (two) times a day 473 mL 3 Active mometasone (NASONEX) 50 mcg/actuation nasal sprayIndications:A llergy Seasonal Administer 2 sprays into each nostril daily. 17 g 5 3 03/14/20 24 Active gabapentin (NEURONTIN) 300 mg capsuleIndications :Neuropathy TAKE 1 CAPSULE BY MOUTH IN THE MORNING, 2 CAPSULES IN THE AFTERNOON, AND 3 CAPSULES AT BEDTIME. 270 capsule 4 Active allopurinoL (Zyloprim) 100 mg tablet [...] twice daily 360 tablet 3 4 Active glipiZIDE (GlucotroL) 5 mg tabletIndications: Diabetes Mellitus Type 2 Hyperglycemia (HCC) Take 1 tablet (5 mg total) by mouth 2 (two) times a day before morning and evening meals. 60 tablet 3 4 Active insulin glargine (Lantus U-100 Insulin) 100 unit/mL vialIndications:Di abetes Mellitus Type 2 Hyperglycemia (HCC) Inject 35 Units under the skin at bedtime. 20 mL 3 4 Active insulin glargine (Lantus U-100 Insulin) 100 unit/mL vialIndications:Di abetes Mellitus Type 2 Hyperglycemia (HCC) Inject 33 Units under the skin at bedtime. Inject 25 mg daily subcutaneously. 18 mL 3 4 12/31/19 24 Discontinu ed(Reorder ) insulin glargine (Lantus U-100 Insulin) 100 unit/mL vialIndications:Di abetes Mellitus Type 2 Hyperglycemia (HCC) Inject 35 Units under the skin at bedtime. 18 mL 3 4 01/01/20 24 Discontinu ed(Reorder ) Active Problems Problem Noted Date Diagnosed Date Albuminuria 09/07/2022 Dizziness 06/22/2022 Overview (06/22/2022): Being worked up by HTN clinic. Recommended autonomic screening. Patient has not scheduled yet Elevated Liver Enzyme Test 05/17/2022 Overview (05/17/2022): -noted on previous lab draws versus dating back to 2019 Assessment & Plan (05/17/2022 5:03 PM IMMIGRATION GUARD): -continue to monitor. -consider liver ultrasound to [...] gout Assessment & Plan (05/17/2022 4:58 PM IMMIGRATION GUARD): -Blood pressures in clinic were at goal today -Continue to monitor. Depressive Disorder 05/17/2022 Overview (05/17/2022): 22 April 2022: PHQ = 24 -patient tells me he has previously been on Paxil, lithium, Trileptal and was diagnosed with bipolar in [place]. -many acute stressors such as needing to find new housing, financial stress, and employment stress. Assessment & Plan (05/17/2022 5:16 PM IMMIGRATION GUARD): -increase Wellbutrin that was previously prescribed for [...] nasal Assessment & Plan (05/17/2022 5:05 PM IMMIGRATION GUARD): -Will obtain more history at next visit -Consider ENT referral/ CT sinus/maxillofacial Nicotine Dependence Cigarettes In Remission 06/22 Overview (05/17/2022): -Quit smoking 2020 -On Wellbutrin - still smokes but she is involved at Nicotine dependency clinic Assessment & Plan (05/17/2022 4:49 PM IMMIGRATION GUARD): -Increase Wellbutrin from 150 to 300 in [...] mass. Assessment & Plan (05/17/2022 4:57 PM IMMIGRATION GUARD): -At one of his emergency department visits [...] 3 days Chronic: recommended checking with Ms. Campbellce 1) is there a concern about allopurinol and your kidney stones? 2) what is the best dose of allopurinol - uric acid should be below 5-6 (last time it was checked was September 2019 and it was 9.0) Gastroesophageal Reflux Disease 09/23/2017 Overview (05/17/2022): Protonix 40 b.i.d. PPIs started in 2017 Assessment & Plan (05/17/2022 4:55 PM IMMIGRATION GUARD): -Continue protonix 40mg BID -At next appointment [...] (07/15/2019): Added automatically from request for surgery [id number] Pain Hand Left 09/24/2017 07/20/2020 Hypertension Essential [...] mg Assessment & Plan (05/17/2022 4:49 PM IMMIGRATION GUARD): Blood pressure in clinic is well controled today. Continue current management. Carpal Tunnel Syndrome Left 06/18/2017 05/17/2022 Overview (05/17/2022): S/p release in 2017 Limitation Of Motion Hand Joint Left 08/27/2019 [...] drink = 0.6 oz pur e alcohol) [facility] Utilities Answer Date Recorded In the past 12 months has e [employer], gas, oil, or water [employer] threatened to shut off services in your [...] often do you attend chur ch or restorationist services? Never 06/22/2022 Do you belong to any clubs o r organizations such as oriental orthodox groups, unions, fraternal or athletic groups, [...] Answer Date Recorded PHQ-2 Score 2 10/09/2023 [facility] - [...] situation today? I have a [facility] place to live 10/12/2023 Education Answer Date Recorded What is the highest level of school you have completed or the highest degree you have received? 12th grade 05/19/2019 Sex and Gender Information Value Date Recorded Sex Assigned at Male 08/16/2019 8:50 PM CDT Gender Identity Male 05/21/2020 12:19 PM IMMIGRATION GUARD Sexual Orientation Straight 07/10/2017 5: 27 PM CDT Job Start Date Occupation Industry Not on file Not on file Not on file Last Filed Vital Signs Vital Sign Reading Time Taken Comments Blood Pressure 118/81 06/21/2023 10:51 AM IMMIGRATION GUARD Pulse 83 06/21/2023 10:51 AM IMMIGRATION GUARD Temperature 36.1 ??C (96.9 ??F) 03/15/2023 11:[address] Respiratory Rate 18 06/16/2022 4:23 PM IMMIGRATION GUARD Oxygen Saturation 97% 06/16/2022 6:15 PM IMMIGRATION GUARD Inhaled Oxygen Concentration - - Weight 126 kg (277 lb 1.9 oz) 06/21/2023 10:51 A M IMMIGRATION GUARD Height 196 cm (6' 5.17) 06/21/2023 10:51 AM IMMIGRATION GUARD Body Mass Index 32.72 06/21/2023 10:51 AM IMMIGRATION GUARD Plan of Treatment Not on file Medical Devices Implanted Type Area Environmental Services Assistant Device Identifier Shelf Expiration Date Model / Serial / Lot Chips Cancellous 5cc - Luke [id number] Implanted:Qty: 1 on 06/07/2017 Bone or Tissue Other/Legacy - See Implant Description [employer] Description:Device Manufactu rer - [employer]. Body Location - Other. bone for packing defect. Device Status Text - [id number]. Peg Smooth 2.0mm X 18mm Long - Luke [id number] Implanted:Qty: 3 on 06/07/2017 Hardware e.g. pins/screws /rods BioMet Description:Device Manufactu rer - [employer]. Device Status Text - [id number]. Peg Smooth 2.0mm X 20mm Long - Luke [id number] Implanted:Qty: 2 on 06/07/2017 Hardware e.g. pins/screws /rods [employer] Description:Device Manufactu rer - [employer]. Device Status Text - [id number]. Screw-Cortical 3.5mm X 14mm Long - Luke [id number] Implanted:Qty: 3 on 06/07/2017 Hardware e.g. pins/screws /rods [employer] Description:Device Manufactu rer - [employer]. Device Status Text - [id number]. Plate-Distal Volar Lt Short - Luke [id number] Implanted:Qty: 1 on 06/07/2017 Hardware e.g. pins/screws /rods [employer] Description:Device Manufactu rer - [employer]. Device Status Text - [id number]. Screw-Cortical 3.5mm X 15mm Long - Luke [id number] Implanted:Qty: 2 on 06/07/2017 Hardware e.g. pins/screws /rods [employer] Description:Device Manufactu rer - [employer]. Device Status Text - [id number]. Peg Threaded 2.5mm X 20mm Long - Luke [id number] Implanted:Qty: 1 on 06/07/2017 Hardware e.g. pins/screws /rods [employer] Description:Device Manufactu rer - [employer]. Device Status Text - [id number]. Peg Smooth 2.0mm X 22mm Long - Luke [id number] Implanted:Qty: 1 on 06/07/2017 Hardware e.g. pins/screws /rods [employer] Description:Device Manufactu rer - [employer]. Device Status Text - [id number]. Explanted Type Area Environmental Services Assistant Device Identifier Shelf Expiration Date Model / Serial / Lot Stnt Uret Inl [id number] - [id number] Implanted:Qty : 1 on 07/15/2019 by Terry Girard M.D. at [facility] [employer] [id number] 05/01/2023 [id number] / / [id number] Procedures Procedure Name Priority Date/Time Associated Diagnosis Comments HEMOGLOBIN A1C, B Routine 12/19/2023 2:41 PM CDT Diabetes Mellitus Type 2 Hyperglycemia (HCC) CBC WITHOUT DIFFERENTIAL, B Routine 12/19/2023 2:41 PM CDT Dysfunction Erectile TESTOSTERONE, TOT AND FR, S Routine 12/19/2023 2:41 PM CDT Dysfunction [...] ALBUMIN, RANDOM, U Routine 03/15/2023 10:57 AM IMMIGRATION GUARD Diabetes Mellitus Type 2 Hyperglycemia (HCC) from [...] LAB BLOOD ADD-O N Performing Organization Address [facility]/ZIP Co de Phone Number [facility] [address] [address], [facility] [place] [address] [place] [address] * Thyroid Function [place] (12/19/2023 2:41 PM CDT) TSH, Sensitive 1.1 0.3 - 4.2 mIU/L 12/19/2023 4:14 PM CDT [facility] Blood (Blood, Venous) 12/19/2023 2:41 PM CDT 12/19/2023 2:42 PM CDT Silvia Robison M.D. LAB BLOOD ADD-O N Performing Organization Address City/[facility]/ZIP Co de Phone Number [facility] [address] [place] [address], [facility] [place] [address], [place] [address] * (ABNORMAL) CBC without Differential (12/19/2023 2:41 [...] Silvia Robison M.D. LAB BLOOD ADD-O N [facility] [place] [facility] [address] [place] [address], [facility] [place] [address] [place] [address] * Testosterone, Total and Free (12/19/2023 2:41 PM CDT) Testosterone, Free, S 7.03 4.06 - 15.6 ng/dL 12/31/2023 9:38 AM CDT [facility] Comment: ----ADDITIONAL INFORMATION---- This test was developed and its performance characteristics determined by [facility] in a manner consistent with CLIA requirements. This test has not been cleared or approved by the U.S. Food and Drug Administration. Testosterone, Total by Mass Spectrometry, Serum 300 240 - 950 ng/dL 12/28/2023 9:24 AM CDT [facility] Comment: ----ADDITIONAL INFORMATION---- Testing performed by Liquid Chromatography-Tandem Mass Spectrometry (LC-MS/MS). This test was developed and its performance characteristics determined by [facility] in a manner consistent with CLIA requirements. This test has not been cleared or approved by the U.S. Food and Drug Administration. Blood (Blood, Venous) 12/19/2023 2:41 PM CDT 12/20/2023 7:26 AM CDT Silvia Robison M.D. LAB BLOOD NON A DD-ON Performing Organization Address [facility]/ZIP Co de Phone Number [facility] [address] [place] [address] [facility] [address] [place] [address] [place] [address] * BUN (Blood Urea Nitrogen) (12/19/2023 2:41 PM CDT) BUN (Blood Urea Nitrogen), P 14 8 - 24 mg/dL 12/19/2023 3:19 PM CDT [facility] Blood (Blood, Venous) 12/19/2023 2:41 PM CDT 12/19/2023 2:42 PM CDT Silvia Robison M.D. LAB BLOOD ADD-O N Performing Organization Address City/[facility] Co de Phone Number [facility] [address] [place] [address], [place] OW[facility] in [place] [address] [place] [address] * ALT (Alanine Aminotransferase) (12/19/2023 2:41 PM CDT) Alanine Aminotransferase (ALT), P 39 7 - 55 U/L 12/19/2023 3:19 PM CDT [facility] Blood (Blood, Venous) 12/19/2023 2:41 PM CDT 12/19/2023 2:42 PM CDT Silvia Robison M.D. LAB BLOOD ADD-O N [facility] [address] [place] [address], [facility] in [place] [address] [place] [address] * AST (Aspartate Aminotransferase) (12/19/2023 2:41 PM CDT) Aspartate Aminotransferase (AST), P 38 8 - 48 U/L 12/19/2023 3:19 PM CDT [facility] Blood (Blood, Venous) 12/19/2023 2:41 PM CDT 12/19/2023 2:42 PM CDT Silvia Robison M.D. LAB BLOOD ADD-O N Performing Organization Address City/[facility]/ZIP Co de Phone Number [facility] [address] [place] [address], [place] [facility] [place] [address] [place] [address] * Sodium (12/19/2023 2:41 PM CDT) Sodium, P 135 135 - 145 mmol/L 12/19/2023 3:19 PM CDT [facility] Blood (Blood, Venous) 12/19/2023 2:41 PM CDT 12/19/2023 2:42 PM CDT Silvia Robison M.D. LAB BLOOD ADD-O N [facility] [address] [place] [address], [facility] [place] [address] [place] [address] * Potassium (12/19/2023 2:41 PM CDT) Potassium, P 4.5 3.6 - 5.2 mmol/L 12/19/2023 3:19 PM CDT [facility] Blood (Blood, Venous) 12/19/2023 2:41 PM CDT 12/19/2023 2:42 PM CDT Silvia Robison M.D. LAB BLOOD ADD-O N Performing Organization Address City/[facility]/ZIP Co de Phone Number [facility] [address] [place] [address], [facility] [place] [address] [place] [address] * (ABNORMAL) Alkaline Phosphatase (12/19/2023 2:41 PM CDT) Alkaline Phosphatase, P 132(H) 40 - 129 U/L 12/19/2023 3:19 PM CDT [facility] Blood (Blood, Venous) 12/19/2023 2:41 PM CDT 12/19/2023 2:42 PM CDT Silvia Robison M.D. LAB BLOOD ADD-O N Performing Organization Address [facility] Co de Phone Number [facility] [address] [place] [address], [facility] [place] [address] [address] * (ABNORMAL) Hemoglobin A1c (12/19/2023 2:41 PM [...] Silvia Robison M.D. LAB BLOOD ADD-O N [facility] [place] [facility] [address] [place] [address], [place] [facility] [place] [address] [place] [address] * Vitamin B12 Assay (12/19/2023 2:41 PM CDT) Vitamin B12 Assay, S 369 232 - 1245 ng/L 12/19/2023 10:16 PM CDT [facility] Comment: Biotin has been identified by the commercial or institutional cleaner as a potential interfering substance. Higher concentrations of biotin may be found in multivitamins, hair/nail supplements, and workout supplements. If the result does not match clinical observations, repeat testing after patient refrains from the use of supplements for at least 12 hours. Blood (Blood, Venous) 12/19/2023 2:41 PM CDT 12/19/2023 9:38 PM CDT Silvia Robison M.D. LAB BLOOD ADD-O N Performing Organization Address [facility]/ZIP Co de Phone Number [facility] [address] [place] [address], [place] [facility] [address] [place] [address] * Creatinine with Estimated GFR (12/19/2023 2:41 PM CDT) Creatinine 1.05 0.74 - 1.35 mg/dL 12/19/2023 3:19 PM CDT [facility] Estimated GFR (eGFR) 86 >=60 mL/min/BSA 12/19/2023 3:19 PM CDT [facility] Comment: Estimated GFR calculated using the 2020 CKD_EPI creatinine equation. Blood (Blood, Venous) 12/19/2023 2:41 PM CDT 12/19/2023 2:42 PM CDT Silvia Robison M.D. LAB BLOOD ADD-O N [facility] [place] [facility] [address] [place] [address], [place] [facility] [place] [address] [place] [address] * Chloride (12/19/2023 2:41 PM CDT) Chloride, P 99 98 - 107 mmol/L 12/19/2023 3:19 PM CDT [facility] Blood (Blood, Venous) 12/19/2023 2:41 PM CDT 12/19/2023 2:42 PM CDT Silvia Robison M.D. LAB BLOOD ADD-O N Performing Organization Address City/[facility]/ZIP Co de Phone Number [facility] [address] [place] [address], [place] [facility] [place] [address] [place] [address] * (ABNORMAL) Bicarbonate (12/19/2023 2:41 PM CDT) Bicarbonate, P 17(L) 22 - 29 mmol/L 12/19/2023 3:19 PM CDT [facility] Blood (Blood, Venous) 12/19/2023 2:41 PM CDT 12/19/2023 2:42 PM CDT Silvia Robison M.D. LAB BLOOD ADD-O N [facility] [address] [place] [address], [place] [facility] [place] [address] [place] [address] * Calcium, Total (12/19/2023 2:41 PM CDT) Calcium, Total, P 9.6 8.6 - 10.0 mg/dL 12/19/2023 3:19 PM CDT [facility] Blood (Blood, Venous) 12/19/2023 2:41 PM CDT 12/19/2023 2:42 PM CDT Silvia oRbison M.D. LAB BLOOD ADD-O N [facility] [address] [place] [address], [place] [facility] [place] [address] [place] [address] * (ABNORMAL) Urinalysis, with Microscopic: Urine, Midstream [...] 8.0 12/19/2023 2:54 PM CDT [facility] Specific [place] >1.035(A) 1.001 - 1.035 12/19/2023 2:54 PM [...] Silvia Robison M.D. LAB URINE ORDER [facility] [place] [facility] [address] [place] [address], [place] [facility] [place] [address] [place] [address] * DX Chest Portable 1 View (11/16/2023 [...] (ABNORMAL) Albumin, Random, Urine (03/15/2023 10:57 AM IMMIGRATION GUARD) Microalbumin <12.0 mg/L 03/15/2023 1:54 PM IMMIGRATION GUARD [facility] Comment:If clinically indica brianda, contact the lab for additional testing. Creatinine 53 mg/dL 03/15/2023 1:54 PM IMMIGRATION GUARD [facility] Albumin/Creatinine Ratio <23(H) <17 mg/g 03/15/2023 1:54 PM IMMIGRATION GUARD [facility] Comment: This ratio may not correspond with the reference range because one or both of the values used to calculate the ratio was above or below the quantification limits. Urine (Urine, Midstream) 03/15/2023 10:57 AM IMMIGRATION GUARD 03/15/2023 11:39 AM IMMIGRATION GUARD Silvia Robison M.D. LAB URINE ORDER [facility] [place] [facility] [address] [place] [address], [facility] OW[facility] [place] [address] [place] [address] from Last 3 Months or Most Recently Relevant to Health Maintenance Advance Directives For more information, please contact: [phone] * Full Code (Latest Code Status on File) Date Activated Date Inactivated Comments 07/15/2019 10:35 AM 07/16/2019 1:23 PM Question Answer Comments Full Code: Discussed Care Teams Assembled Wood Products Repairer Relationship Specialty Start Date End Date Silvia Robison M.D. [address] [id number] PCP - General Family Medicine 10/03/23
--- OUTSIDE RECORDS SUMMARY | 2024-01-27 14:33 | XMS_ITS | Clinical Summary ---
Author Organization [facility] Address [address] [place] [address] Care Team Providers Care Children'S Service Worker Name Role Phone Silvia Robison M.D. Primary Care Provider Source Comments Patient records contain information from all sites at [facility]. For routine questions regarding patient records, call [phone] during business hours, M-F 8:00 AM - 5:00 PM Central Time. Record requests for emergency care only can be directed to [phone] at any time.[facility] Allergies Active Allergy Reactions Criticality [...] 2019 Assessment & Plan (05/17/2022 5:03 PM RADIATOR FITTER): -continue to monitor. -consider liver ultrasound to [...] gout Assessment & Plan (05/17/2022 4:58 PM RADIATOR FITTER): -Blood pressures in clinic were at goal today -Continue to monitor. Depressive Disorder 05/17/2022 Overview (05/17/2022): 22 April 2022: PHQ = 24 -patient tells me he has previously been on Paxil, lithium, Trileptal and was diagnosed with bipolar in [place]. -many acute stressors such as needing to find new housing, financial stress, and employment stress. Assessment & Plan (05/17/2022 5:16 PM RADIATOR FITTER): -increase Wellbutrin that was previously prescribed for [...] nasal Assessment & Plan (05/17/2022 5:05 PM RADIATOR FITTER): -Will obtain more history at next visit -Consider ENT referral/ CT sinus/maxillofacial Nicotine Dependence Cigarettes In Remission 06/22 Overview (05/17/2022): -Quit smoking 2020 -On Wellbutrin - still smokes but she is involved at Nicotine dependency clinic Assessment & Plan (05/17/2022 4:49 PM RADIATOR FITTER): -Increase Wellbutrin from 150 to 300 in [...] mass. Assessment & Plan (05/17/2022 4:57 PM RADIATOR FITTER): -At one of his emergency department visits [...] 2017 Assessment & Plan (05/17/2022 4:55 PM RADIATOR FITTER): -Continue protonix 40mg BID -At next appointment [...] (07/15/2019): Added automatically from request for surgery [id number] Pain Hand Left 09/24/2017 07/20/2020 Hypertension Essential [...] mg Assessment & Plan (05/17/2022 4:49 PM RADIATOR FITTER): Blood pressure in clinic is well controled today. Continue current management. Carpal Tunnel Syndrome Left 06/18/2017 05/17/2022 Overview (05/17/2022): S/p release in 2018 Limitation Of Motion Hand Joint Left 08/27/2019 Pain Wrist Left 08/27/2019 Encounters Date Type Department Care Team Description 12/31/2023 Clinical Communication Department [facility], in [address] [phone] Silvia Robison M.D. Medication Problem (Quantities of 10 mL) 12/31/2023 Orders Only Department of [facility], [address] [phone] Ruchi Sharma M.D. Diabetes Mellitus Type 2 Hyperglycemia (HCC) 12/27/2023 Clinical Communication Department [facility], in [address] [phone] Silvia Robison M.D. Med Question 12/26/2023 Orders Only Department of [facility], in [address] [phone] Ruchi Sharma M.D. Diabetes Mellitus Type 2 Hyperglycemia (HCC) 12/26/2023 Clinical Communication Department [facility], in [address] [phone] Silvia Robison M.D. Med Question 12/19/2023 2:06 PM CDT - 12/19/2023 11:59 PM CDT Hospital Encounter Department of Laboratory Medicine in [place], [place] [address] [place] [phone] Silvia Robison M.D. Kidney And Ureter Disorder; Lesion Kidney Discharge Disposition: Home or Self Care 12/19/2023 1:57 PM CDT - 12/19/2023 2:05 PM CDT Hospital Encounter Department of Laboratory Medicine in [place], [place] [address] [place] [phone] Silvia Robison M.D. Hyperlipidemia On Treatment; Hypertension Essential Primary; Kidney And Ureter Disorder; Lesion Kidney; Dysfunction Erectile; Diabetes Mellitus Type 2 Hyperglycemia (HCC) Discharge Disposition: Home or Self Care 12/19/2023 Clinical Communication Department of Occupational Medicine in [place], [place] [address] [place] [phone] Flaca Franco P.A.-C., P.A., M.S. 12/17/2023 Orders Only [facility] SELF TEST [facility] [address] [place] [address] Silvia Robison M.D. Screening Cancer Colon 12/03/2023 Orders Only [facility] SELF TEST [address] [address] [place] [phone] Silvia Robison M.D. Screening Cancer Colon 11/16/2023 12:18 PM CDT - 11/16/2023 12:39 PM CDT Emergency [facility] [address] [place] [phone] Splenomegaly Acquired (Primary Dx) Discharge Disposition: Home or Self Care 11/07/2023 Refill Department of Family Medicine, [facility], in [place], [place] [address] [phone] Silvia Robison M.D. Med Refill from Last [...] Relation Name Comments Sleep apnea Father Kirk Catrer SR. Alcohol abuse Maternal Grandfather Tashi Proctor Coronary artery disease Maternal Grandfather Tashi Le jose roberto Hypertension Maternal Grandfather Tashi Proctor Stroke Maternal Grandfather Tashi Proctor Breast cancer Mother Sienna Vuong Unexplained Mother Sienna Vuong Diabetes Other 2 Grandmother Stroke Other 2 Grandmother Stroke Other 3 Grandfather Asthma Paternal Grandmother Joanna Raul Diabetes Paternal Grandmother Joanna Raul Relation Name Status Comments Father Kirk Carter SR. Maternal Grandfather Tashi Proctor Mother Sienna Vuong Other 1 Grandmother Other 2 Grandmother Other 3 Grandfather Paternal Grandmother Joanna Raul Social History Tobacco Use Types Packs/Day Years Used Date Smoking Tobacco: Former Cigarettes 0.3 37.1 0 09/21/1983 - 10/31/2020 Passive Smoke Exposure: Current Smokeless Tobacco: Never Quit: 01/12/2018 Comments:1 pack per week Alcohol Use Standard Drinks/Week Comments No 0 (1 standard drink = 0.6 oz pur e alcohol) [facility] Utilities Answer Date Recorded In [...] How often do you attend chur or zoroastrianism services? Never 06/22/2022 Do you belong to [...] Answer Date Recorded PHQ-2 Score 2 10/09/2023 [facility] - Occupational [...] your living situation today? I have a [facility] place to live 10/12/2023 Education Answer Date Recorded What is the highest level of school you have completed or the highest degree you have received? 12th grade 05/19/2019 Sex and Gender Information Value Date Recorded Sex Assigned at Male 08/16/2019 8:50 PM CDT Gender Identity Male 05/21/2020 12:19 PM RADIATOR FITTER Sexual Orientation Straight 07/10/2017 5: 27 PM CDT Job Start Date Occupation Industry Not on file Not on file Not on file Last Filed Vital Signs Vital Sign Reading Time Taken Comments Blood Pressure 118/81 06/21/2023 10:51 AM RADIATOR FITTER Pulse 83 06/21/2023 10:51 AM RADIATOR FITTER Temperature 36.1 ??C (96.9 ??F) 03/15/2023 11:[address] Respiratory Rate 18 06/16/2022 4:23 PM RADIATOR FITTER Oxygen Saturation 97% 06/16/2022 6:15 PM RADIATOR FITTER Inhaled Oxygen Concentration - - Weight 126 kg (277 lb 1.9 oz) 06/21/2023 10:51 A M RADIATOR FITTER Height 196 cm (6' 5.17) 06/21/2023 10:51 AM RADIATOR FITTER Body Mass Index 32.72 06/21/2023 10:51 AM RADIATOR FITTER Plan of Treatment Health Maintenance Due Date Last Done Comments CT Colonography 1972 Cologuard 1972 Colonoscopy 1972 Colorectal Cancer Screening 1972 FIT 1972 HIV Screening 1972 Hepatitis C Screening 1972 Zoster Vaccines (1 of 2) 2022 Diabetic Office Visit with F oot Exam 05/17/2023 05/17/2022, 04/18/2020 COVID-19 Vaccine ( - 2023-2 5 season) 2023 05/01/2021, 03/03/2021 Influenza Vaccine (#1) [...] Completed 023 Medical Devices Implanted Type Area Sanipractic Physician Device Identifier Shelf Expiration Date Model / Serial / Lot Chips Cancellous 5cc - Luke [id number] Implanted:Qty: 1 on 06/07/2017 Bone or Tissue Other/Legacy - See Implant Description [employer] Description:Device Manufactu rer - [employer]. Body Location - Other. bone for packing defect. Device Status Text - [id number]. Peg Smooth 2.0mm X 18mm Long - Luke [id number] Implanted:Qty: 3 on 06/07/2017 Hardware e.g. pins/screws /rods Bio[employer] Description:Device Manufactu rer - [employer]. Device Status Text - [id number]. Peg Smooth 2.0mm X 20mm Long - Luke [id number] Implanted:Qty: 2 on 06/07/2017 Hardware e.g. pins/screws /rods [employer] Description:Device Manufactu rer - [employer]. Device Status Text - [id number]. Screw-Cortical 3.5mm X 14mm Long - Luke [id number] Implanted:Qty: 3 on 06/07/2017 Hardware e.g. pins/screws /rods [employer] Description:Device Manufactu rer - [employer]. Device Status Text - [id number]. Plate-Distal Volar Lt Short - Luke [id number] Implanted:Qty: 1 on 06/07/2017 Hardware e.g. pins/screws /rods [employer] Description:Device Manufactu rer - [employer]. Device Status Text - [id number]. Screw-Cortical 3.5mm X 15mm Long - Luke [id number] Implanted:Qty: 2 on 06/07/2017 Hardware e.g. pins/screws /rods [employer] Description:Device Manufactu rer - [employer]. Device Status Text - [id number]. Peg Threaded 2.5mm X 20mm Long - Luke [id number] Implanted:Qty: 1 on 06/07/2017 Hardware e.g. pins/screws /rods [employer] Description:Device Manufactu rer - [employer]. Device Status Text - [id number]. Peg Smooth 2.0mm X 22mm Long - Luke [id number] Implanted:Qty: 1 on 06/07/2017 Hardware e.g. pins/screws /rods [employer] Description:Device Manufactu rer - [employer]. Device Status Text - [id number]. Explanted Type Area Sanipractic Physician Device Identifier Shelf Expiration Date Model / Serial / Lot Stnt Uret Inl [id number] - [id number] Implanted:Qty : 1 on 07/15/2019 by Terry Girard M.D. at [facility] Ureteral Stent C.[employer].Bard [id number] 05/01/2023 [id number] / / [id number] Procedures Procedure Name Priority Date/Time Associated Diagnosis [...] ALBUMIN, RANDOM, U Routine 03/15/2023 10:57 AM RADIATOR FITTER Diabetes Mellitus Type 2 Hyperglycemia (HCC) from [...] Silvia Robison M.D. LAB BLOOD ADD-O N [facility] [address] [place] [address], [place] [facility] [place] [address] [place] [address] * Thyroid Function [place] (12/19/2023 2:41 PM CDT) TSH, Sensitive 1.1 0.3 - 4.2 mIU/L 12/19/2023 4:14 PM CDT OW[facility] Blood (Blood, Venous) 12/19/2023 2:41 PM CDT 12/19/2023 2:42 PM CDT Silvia Robison M.D. LAB BLOOD ADD-O N Performing Organization Address [facility] Co de Phone Number [facility] [address] [place] [address], [facility] OWAT [facility] [place] [address] [place] [address] * (ABNORMAL) CBC without Differential (12/19/2023 2:41 PM CDT) Pathologist [facility] Hemoglobin 14.4 13.2 - 16.6 g/dL 12/19/2023 [...] LAB BLOOD ADD-O N Performing Organization Address [facility]/ZIP Co de Phone Number [facility] [address] [place] [address], [facility] OWAT [facility] [place] [address] [place] [address] * Testosterone, Total and Free (12/19/2023 2:41 PM CDT) Testosterone, Free, S 7.03 4.06 - 15.6 ng/dL 12/31/2023 9:38 AM CDT [facility] Comment: ----ADDITIONAL INFORMATION---- This test was developed and its performance characteristics determined by [facility] in a manner consistent with CLIA requirements. This test has not been cleared or approved by the U.S. Food and Drug Administration. Testosterone, Total by Mass Spectrometry, Serum 300 240 - 950 ng/dL 12/28/2023 9:24 AM CDT [facility] Comment: ----ADDITIONAL INFORMATION---- Testing performed by Liquid Chromatography-Tandem Mass Spectrometry (LC-MS/MS). This test was developed and its performance characteristics determined by [facility] in a manner consistent with CLIA requirements. This test has not been cleared or approved by the U.S. Food and Drug Administration. Blood (Blood, Venous) 12/19/2023 2:41 PM CDT 12/20/2023 7:26 AM CDT Silvia Robison M.D. LAB BLOOD NON A DD-ON [facility] [place] [address] [place] [address] [facility] [address] J[place] [address] [place] [address] * BUN (Blood Urea Nitrogen) (12/19/2023 2:41 PM CDT) BUN (Blood Urea Nitrogen), P 14 8 - 24 mg/dL 12/19/2023 3:19 PM CDT [facility] Blood (Blood, Venous) 12/19/2023 2:41 PM CDT 12/19/2023 2:42 PM CDT Silvia Robison M.D. LAB BLOOD ADD-O N [facility] [address] [place] [address], [place] [facility] [place] [address] [place] [address] * ALT (Alanine Aminotransferase) (12/19/2023 2:41 PM CDT) Alanine Aminotransferase (ALT), P 39 7 - 55 U/L 12/19/2023 3:19 PM CDT [facility] Blood (Blood, Venous) 12/19/2023 2:41 PM CDT 12/19/2023 2:42 PM CDT Silvia Robison M.D. LAB BLOOD ADD-O N Performing Organization Address City/[facility]/ZIP Co de Phone Number [facility] [address] [place] [address], [place] AT [facility] [place] [address] [place] [address] * AST (Aspartate Aminotransferase) (12/19/2023 2:41 PM CDT) Aspartate Aminotransferase (AST), P 38 8 - 48 U/L 12/19/2023 3:19 PM CDT [facility] Blood (Blood, Venous) 12/19/2023 2:41 PM CDT 12/19/2023 2:42 PM CDT Silvia Robison M.D. LAB BLOOD ADD-O N Performing Organization Address City/[facility]/ZIP Co de Phone Number [facility] [address] [place] [address], [place] [facility] [place] [address] [place] [address] * Sodium (12/19/2023 2:41 PM CDT) Sodium, P 135 135 - 145 mmol/L 12/19/2023 3:19 PM CDT [facility] Blood (Blood, Venous) 12/19/2023 2:41 PM CDT 12/19/2023 2:42 PM CDT Silvia Robison M.D. LAB BLOOD ADD-O N Performing Organization Address City/[facility]/ZIP Co de Phone Number [facility] [address] [place] [address], [place] [facility] [place] [address] [place] [address] * Potassium (12/19/2023 2:41 PM CDT) Potassium, P 4.5 3.6 - 5.2 mmol/L 12/19/2023 3:19 PM CDT [facility] Blood (Blood, Venous) 12/19/2023 2:41 PM CDT 12/19/2023 2:42 PM CDT Silvia Robison M.D. LAB BLOOD ADD-O N Performing Organization Address [facility]/ZIP Co de Phone Number [facility] [address] [place] [address], [place] [facility] [place] [address] [place] [address] * (ABNORMAL) Alkaline Phosphatase (12/19/2023 2:41 PM CDT) Alkaline Phosphatase, P 132(H) 40 - 129 U/L 12/19/2023 3:19 PM CDT [facility] Blood (Blood, Venous) 12/19/2023 2:41 PM CDT 12/19/2023 2:42 PM CDT Silvia Robison M.D. LAB BLOOD ADD-O N Performing Organization Address City/[facility]/ZIP Co de Phone Number [facility] [address] [place] [address], [place] [facility] [facility] [place] [address] [place] [address] * (ABNORMAL) Hemoglobin A1c (12/19/2023 2:41 PM [...] LAB BLOOD ADD-O N Performing Organization Address [facility]/ZIP Co de Phone Number [facility] [address] [place] [address], [facility] OWAT [facility] [place] [address] [place] [address] * Vitamin B12 Assay (12/19/2023 2:41 PM CDT) Vitamin B12 Assay, S 369 232 - 1245 ng/L 12/19/2023 10:16 PM CDT [facility] Comment: Biotin has been identified by the skein yarn dyer helper as a potential interfering substance. Higher concentrations of biotin may be found in multivitamins, hair/nail supplements, and workout supplements. If the result does not match clinical observations, repeat testing after patient refrains from the use of supplements for at least 12 hours. Blood (Blood, Venous) 12/19/2023 2:41 PM CDT 12/19/2023 9:38 PM CDT Silvia Robison M.D. LAB BLOOD ADD-O N [facility] [address] [place] [address], [place] [facility] [facility] - [facility] [address] [place] [address] * Creatinine with Estimated GFR (12/19/2023 2:41 PM CDT) Creatinine 1.05 0.74 - 1.35 mg/dL 12/19/2023 3:19 PM CDT OW[facility] Estimated GFR (eGFR) 86 >=60 mL/min/BSA 12/19/2023 3:19 PM CDT [facility] Comment: Estimated GFR calculated using the 2020 CKD_EPI creatinine equation. Blood (Blood, Venous) 12/19/2023 2:41 PM CDT 12/19/2023 2:42 PM CDT Silvia Robison M.D. LAB BLOOD ADD-O N Performing Organization Address City/[facility]/ZIP Co de Phone Number [facility] [address] [place] [address], [facility] OW[facility] [place] [address] [place] [address] * Chloride (12/19/2023 2:41 PM CDT) Chloride, P 99 98 - 107 mmol/L 12/19/2023 3:19 PM CDT [facility] Blood (Blood, Venous) 12/19/2023 2:41 PM CDT 12/19/2023 2:42 PM CDT Silvia Robison M.D. LAB BLOOD ADD-O N Performing Organization Address City/[facility]/ZIP Co de Phone Number [facility] [address] [place] [address], [facility] OW[facility] [place] [address] [place] [address] * (ABNORMAL) Bicarbonate (12/19/2023 2:41 PM CDT) Bicarbonate, P 17(L) 22 - 29 mmol/L 12/19/2023 3:19 PM CDT [facility] Blood (Blood, Venous) 12/19/2023 2:41 PM CDT 12/19/2023 2:42 PM CDT Silvia Robison M.D. LAB BLOOD ADD-O N Performing Organization Address [facility] Co de Phone Number [facility] [address] [place] [address], [facility] OW[facility] [place] [address] [place] [address] * Calcium, Total (12/19/2023 2:41 PM CDT) Calcium, Total, P 9.6 8.6 - 10.0 mg/dL 12/19/2023 3:19 PM CDT [facility] Blood (Blood, Venous) 12/19/2023 2:41 PM CDT 12/19/2023 2:42 PM CDT Silvia Robison M.D. LAB BLOOD ADD-O N Performing Organization Address [facility] Co de Phone Number [facility] [address], [place] [address], [place] [facility] [facility] [place] [address] [place] [address] * (ABNORMAL) Urinalysis, with Microscopic: Urine, Midstream [...] 8.0 12/19/2023 2:54 PM CDT OW[facility] Specific [place] >1.035(A) 1.001 - 1.035 12/19/2023 2:54 PM [...] Silvia Robison M.D. LAB URINE ORDER GENIE [facility] [address] [address], [facility] OW[facility] [place] [address] [place] [address] * DX Chest Portable 1 View (11/16/2023 [...] (ABNORMAL) Albumin, Random, Urine (03/15/2023 10:57 AM RADIATOR FITTER) Microalbumin <12.0 mg/L 03/15/2023 1:54 PM RADIATOR FITTER [facility] Comment:If clinically indica brianda, contact the lab for additional testing. Creatinine 53 mg/dL 03/15/2023 1:54 PM RADIATOR FITTER [facility] Albumin/Creatinine Ratio <23(H) <17 mg/g 03/15/2023 1:54 PM RADIATOR FITTER [facility] Comment: This ratio may not correspond with the reference range because one or both of the values used to calculate the ratio was above or below the quantification limits. Urine (Urine, Midstream) 03/15/2023 10:57 AM RADIATOR FITTER 03/15/2023 11:39 AM RADIATOR FITTER Silvia Robison M.D. LAB URINE ORDER GENIE [facility] [address] [place] [address], [facility] OW[facility] [place] [address] [place] [address] from Last 3 Months or Most Recently Relevant to Health Maintenance Advance Directives For more information, please contact: [phone] * Full Code (Latest Code Status on File) Date Activated Date Inactivated Comments 07/15/2019 10:35 AM 07/16/2019 1:23 PM Question Answer Comments Full Code: Discussed Care Teams Children'S Service Worker Relationship Specialty Start Date End Date Silvia Robison M.D. [address], [place] [address] PCP - General Family Medicine 10/03/23
--- OUTSIDE RECORDS SUMMARY | 2024-01-27 14:34 | XMS_ITS | Encounter Summary ---
Author Organization [facility] Address [address] [place] [address] Care Team Providers Care Color Sprayer Name Role Phone Siliva Robison M.D. Primary Care Provider Encounter Details Date Type Department Care Team (Late st Contact Info) Description 12/26/2023 Orders Only Department of Family Medicine, [facility], in [place], [place] [address] [place] [phone] Ruchi Sharma M.D. [address] [place] [phone] Diabetes Mellitus Type 2 Hyperglycemia (HCC) Social History Tobacco Use Types Packs/Day Years Used Date Smoking Tobacco: Former Cigarettes 0.3 37.1 0 09/21/1983 - 10/31/2020 Passive Smoke Exposure: Current Smokeless Tobacco: Never Quit: 01/12/2018 Comments:1 pack per week Alcohol Use Standard Drinks/Week Comments No 0 (1 standard drink = 0.6 oz pur e alcohol) [facility] Utilities Answer Date Recorded In [...] often do you attend chur ch or mosque services? Never 06/22/2022 Do you belong to [...] Answer Date Recorded PHQ-2 Score 2 10/09/2023 [facility] Occupat ional [facility] - Occupational Stress [...] your living situation today? I have a [facility] live 10/12/2023 Education Answer Date Recorded What is the highest level of school you have completed or the highest degree you have received? 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 [address] [place] [phone] PCP - General Family Medicine 10/03/23 documented as of this encounter
--- OUTSIDE RECORDS SUMMARY | 2024-01-27 14:34 | XMS_ITS | Encounter Summary ---
Author Organization [facility] Address [address] [place] [address] Care Team Providers Care Makeup Artist Name Role Phone Silvia Robison M.D. Primary Care Provider Reason for Visit * Reason Onset Date Comments Med Question 12/26/2023 Encounter Details Date Type Department Care Team (Late st Contact Info) Description 12/26/2023 Clinical Communication Department of Family Medicine, [facility], in [place], [place] [address] [place] [phone] Silvia Robison M.D. [address] [place] [phone] Med Question Social History Tobacco Use Types Packs/Day Years Used Date Smoking Tobacco: Former Cigarettes 0.3 37.1 0 09/21/1983 - 10/31/2020 Passive Smoke Exposure: Current Smokeless Tobacco: Never Quit: 01/12/2018 Comments:1 pack per week Alcohol Use Standard Drinks/Week Comments No 0 (1 standard drink = 0.6 oz pur e alcohol) [facility] Utilities Answer Date Recorded In the [...] often do you attend chur ch or nondenominational services? Never 06/22/2022 Do you [...] Answer Date Recorded PHQ-2 Score 2 10/09/2023 [facility] [place] of Occupat ional Health - Occupational Stress [...] your living situation today? I have a [facility] place to live 10/12/2023 Education Answer Date Recorded What is the highest level of school you have completed or the highest degree you have received? 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 [address] [phone] PCP - General Family Medicine 10/03/23 documented as of this encounter
--- OUTSIDE RECORDS SUMMARY | 2024-01-27 14:34 | XMS_ITS | Encounter Summary ---
Author Organization [facility] Address [address] [place] [address] Care Team Providers Care Roof Service Technician Name Role Phone Silvia Robison M.D. Primary Care Provider Encounter Details Date Type Department Care Team (Late st Contact Info) Description 12/19/2023 Clinical Communication Department of Occupational Medicine in [place], [place] [address] [place] [phone] Flaca Franco P.A.-Yelitza., P.A., M.S. [address] [place] [phone] Social History Tobacco Use Types Packs/Day Years Used Date Smoking Tobacco: Former Cigarettes 0.3 37.1 0 09/21/1983 - 10/31/2020 Passive Smoke Exposure: Current Smokeless Tobacco: Never Quit: 01/12/2018 Comments:1 pack per week Alcohol Use Standard Drinks/Week Comments No 0 (1 standard drink = 0.6 oz pur e alcohol) [facility] Utilities Answer Date Recorded In the past [...] any clubs o r organizations such as shinto groups, unions, fraternal or athletic groups, or [...] Answer Date Recorded PHQ-2 Score 2 10/09/2023 [facility] [place] of Occupat ional Health - Occupational Stress [...] your living situation today? I have a [facility] place to live 10/12/2023 Education Answer Date Recorded What is the highest level of school you have completed or the highest degree you have received? 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 [address] [phone] PCP - General Family Medicine 10/03/23 documented as of this encounter
--- OUTSIDE RECORDS SUMMARY | 2024-01-27 14:34 | XMS_ITS | Encounter Summary ---
Author Organization [facility] Address [address] [place] [address] Care Team Providers Care Collar Band Creaser Name Role Phone Silvia Robison M.D. Primary Care Provider Encounter Details Date Type Department Care Team (Latest Contact Info) Description 12/19/2023 1:57 PM CDT - 12/19/2023 2:05 PM CDT Hospital Encounter Department of Laboratory Medicine in [place], [place] [address] [place] [phone] Silvia Robison M.D. [address] [place] [phone] Hyperlipidemia On Treatment; Hypertension Essential Primary; [...] drink = 0.6 oz pur e alcohol) [facility] Utilities Answer Date Recorded In the past 12 months has [employer] electric, gas, oil, or water company threatened [...] How often do you attend chur or gnosticist services? Never 06/22/2022 Do you belong to any clubs o r organizations such as sikhism groups, unions, fraternal or athletic groups, or [...] Answer Date Recorded PHQ-2 Score 2 10/09/2023 [facility] of Occupat ional Health - Occupational [...] your living situation today? I have a [facility] place to live 10/12/2023 Education Answer Date Recorded What is the highest level of school you have completed or the highest degree you have received? 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 Sexual Orientation Straight 07/10/2017 5: 27 PM [...] on file documented as of this encounter Procedures Procedure [...] LAB BLOOD ADD-O N Performing Organization Address [facility] Co de Phone Number [facility] [address] [place] [address], [facility] in [place] [address] [place] [address] * (ABNORMAL) CBC without Differential (12/19/2023 2:41 [...] LAB BLOOD ADD-O N Performing Organization Address City/[facility] Co de Phone Number [facility] [address] [place] [address], [facility] OWAT [facility] in [place] [address] [place] [address] * Testosterone, Total and Free (12/19/2023 2:41 PM CDT) Testosterone, Free, S 7.03 4.06 - 15.6 ng/dL 12/31/2023 9:38 AM CDT [facility] Comment: ----ADDITIONAL INFORMATION---- This test was developed and its performance characteristics determined by [facility] in a manner consistent with CLIA requirements. This test has not been cleared or approved by the U.S. Food and Drug Administration. Testosterone, Total by Mass Spectrometry, Serum 300 240 - 950 ng/dL 12/28/2023 9:24 AM CDT [facility] Comment: ----ADDITIONAL INFORMATION---- Testing performed by Liquid Chromatography-Tandem Mass Spectrometry (LC-MS/MS). This test was developed and its performance characteristics determined by [facility] in a manner consistent with CLIA requirements. This test has not been cleared or approved by the U.S. Food and Drug Administration. Blood (Blood, Venous) 12/19/2023 2:41 PM CDT 12/20/2023 7:26 AM CDT Silvia Robison M.D. LAB BLOOD NON A DD-ON Performing Organization Address City/[facility]/ZIP Co de Phone Number [facility] [address] [place] [address] [facility] [address] [place] [address] [place] [address] * (ABNORMAL) Lipid Panel (12/19/2023 2:41 PM CDT) Triglycerides 420(H) mg/dL 12/19/2023 3:19 PM CDT [facility] Comment: ----REFERENCE VALUE---- Normal: <150 mg/dL Borderline [...] Silvia Robison M.D. LAB BLOOD ADD-O N [facility] [address] [place] [address], [place] [facility] in [place] [address] [place] [address] * (ABNORMAL) Alkaline Phosphatase (12/19/2023 2:41 PM CDT) Alkaline Phosphatase, P 132(H) 40 - 129 U/L 12/19/2023 3:19 PM CDT [facility] Blood (Blood, Venous) 12/19/2023 2:41 PM CDT 12/19/2023 2:42 PM CDT Silvia Robison M.D. LAB BLOOD ADD-O N [facility] [address] [place] [address], [facility] in [place] [address] [place] [address] * ALT (Alanine Aminotransferase) (12/19/2023 2:41 PM CDT) Alanine Aminotransferase (ALT), P 39 7 - 55 U/L 12/19/2023 3:19 PM CDT [facility] Blood (Blood, Venous) 12/19/2023 2:41 PM CDT 12/19/2023 2:42 PM CDT Silvia Robison M.D. LAB BLOOD ADD-O N Performing Organization Address [facility]/ZIP Co de Phone Number [facility] [address] [place] [address], [facility] in [place] [address] [place] [address] * AST (Aspartate Aminotransferase) (12/19/2023 2:41 PM CDT) Aspartate Aminotransferase (AST), P 38 8 - 48 U/L 12/19/2023 3:19 PM CDT [facility] Blood (Blood, Venous) 12/19/2023 2:41 PM CDT 12/19/2023 2:42 PM CDT Silvia Robison M.D. LAB BLOOD ADD-O N Performing Organization Address City/[facility]/ZIP Co de Phone Number [facility] [address] [place] [address], [place] [facility] in [place] [address] [place] [address] * (ABNORMAL) Bicarbonate (12/19/2023 2:41 PM CDT) Bicarbonate, P 17(L) 22 - 29 mmol/L 12/19/2023 3:19 PM CDT [facility] Blood (Blood, Venous) 12/19/2023 2:41 PM CDT 12/19/2023 2:42 PM CDT Silvia Robison M.D. LAB BLOOD ADD-O N Performing Organization Address City/[facility] Co de Phone Number [facility] [address] [address], [facility] [place] [address] [place] [address] * BUN (Blood Urea Nitrogen) (12/19/2023 2:41 PM CDT) BUN (Blood Urea Nitrogen), P 14 8 - 24 mg/dL 12/19/2023 3:19 PM CDT [facility] Blood (Blood, Venous) 12/19/2023 2:41 PM CDT 12/19/2023 2:42 PM CDT Silvia Robison M.D. LAB BLOOD ADD-O N Performing Organization Address [facility] Co de Phone Number [facility] [address] [address], [place] [facility] in [place] [address] [place] [address] * Calcium, Total (12/19/2023 2:41 PM CDT) Calcium, Total, P 9.6 8.6 - 10.0 mg/dL 12/19/2023 3:19 PM CDT [facility] Blood (Blood, Venous) 12/19/2023 2:41 PM CDT 12/19/2023 2:42 PM CDT Silvia Robison M.D. LAB BLOOD ADD-O N [facility] [address] [place] [address], [place] [facility] in [place] [address] [place] [address] * Chloride (12/19/2023 2:41 PM CDT) Chloride, P 99 98 - 107 mmol/L 12/19/2023 3:19 PM CDT [facility] Blood (Blood, Venous) 12/19/2023 2:41 PM CDT 12/19/2023 2:42 PM CDT Silvia Robison M.D. LAB BLOOD ADD-O N Performing Organization Address City/[facility] Co de Phone Number [facility] [address] [place] [address], [place] [facility] [place] [address] [place] [address] * Creatinine with Estimated GFR (12/19/2023 2:41 PM CDT) Creatinine 1.05 0.74 - 1.35 mg/dL 12/19/2023 3:19 PM CDT [facility] Estimated GFR (eGFR) 86 >=60 mL/min/BSA 12/19/2023 3:19 PM CDT [facility] Comment: Estimated GFR calculated using the 2020 CKD_EPI creatinine equation. Blood (Blood, Venous) 12/19/2023 2:41 PM CDT 12/19/2023 2:42 PM CDT Silvia Robison M.D. LAB BLOOD ADD-O N Performing Organization Address City/[facility]/ZIP Co de Phone Number [facility] [address] [place] [address], [place] [facility] in [place] [address] [place] [address] * Sodium (12/19/2023 2:41 PM CDT) Sodium, P 135 135 - 145 mmol/L 12/19/2023 3:19 PM CDT [facility] Blood (Blood, Venous) 12/19/2023 2:41 PM CDT 12/19/2023 2:42 PM CDT Silvia Robison M.D. LAB BLOOD ADD-O N Performing Organization Address [facility] Co de Phone Number [facility] [address] [place] [address], [facility] OW[facility] [place] [address] [address] * Potassium (12/19/2023 2:41 PM CDT) Potassium, P 4.5 3.6 - 5.2 mmol/L 12/19/2023 3:19 PM CDT [facility] Blood (Blood, Venous) 12/19/2023 2:41 PM CDT 12/19/2023 2:42 PM CDT Silvia Robison M.D. LAB BLOOD ADD-O N Performing Organization Address [facility] Co de Phone Number [facility] [address] [place] [address], [facility] [place] [address] [place] [address] * Vitamin B12 Assay (12/19/2023 2:41 PM CDT) Vitamin B12 Assay, S 369 232 - 1245 ng/L 12/19/2023 10:16 PM CDT [facility] Comment: Biotin has been identified by the speck dyer as a potential interfering substance. Higher concentrations of biotin may be found in multivitamins, hair/nail supplements, and workout supplements. If the result does not match clinical observations, repeat testing after patient refrains from the use of supplements for at least 12 hours. Blood (Blood, Venous) 12/19/2023 2:41 PM CDT 12/19/2023 9:38 PM CDT Silvia Robison M.D. LAB BLOOD ADD-O N [facility] [address] [place] [address], [facility] - [facility] [address] [place] [address] * Thyroid Function [place] (12/19/2023 2:41 PM CDT) TSH, Sensitive 1.1 0.3 - 4.2 mIU/L 12/19/2023 4:14 PM CDT [facility] Blood (Blood, Venous) 12/19/2023 2:41 PM CDT 12/19/2023 2:42 PM CDT Silvia Robison M.D. 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 [address] [place] [phone] PCP - General Family Medicine 10/03/23 documented as of this encounter
--- OUTSIDE RECORDS SUMMARY | 2024-01-27 14:34 | XMS_ITS | Encounter Summary ---
Author Organization [facility] Address [address] [place] [address] Care Team Providers Care Microwave Remote Sensing Scientist Name Role Phone Silvia Robison M.D. Primary Care Provider Encounter Details Date Type Department Care Team (Latest Contact Info) Description 12/19/2023 2:06 PM CDT - 12/19/2023 11:59 PM CDT Hospital Encounter Department of Laboratory Medicine in [place], [place] [address], [place] [phone] Silvia Robison M.D. [address] [phone] Kidney And Ureter Disorder; Lesion Kidney Discharge Disposition: Home or Self Care Social History Tobacco Use Types Packs/Day Years Used Date Smoking Tobacco: Former Cigarettes 0.3 37.1 0 09/21/1983 - 10/31/2020 Passive Smoke Exposure: Current Smokeless Tobacco: Never Quit: 01/12/2018 Comments:1 pack per week Alcohol Use Standard Drinks/Week Comments No 0 (1 standard drink = 0.6 oz pur e alcohol) [facility] Utilities Answer Date Recorded In the past [...] often do you attend chur ch or worship services? Never 06/22/2022 Do you belong to any clubs o r organizations such as synagogue groups, unions, fraternal or athletic groups, or [...] Answer Date Recorded PHQ-2 Score 2 10/09/2023 [facility] [place] of Occupat ional Health - Occupational Stress [...] your living situation today? I have a [facility] place to live 10/12/2023 Education Answer Date Recorded What is the highest level of school you have completed or the highest degree you have received? 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 LAB URINE ORDER [facility] [address] [place] [address], [facility] OW[facility] in [place] [address] [place] [address] documented in this encounter Visit Diagnoses Diagnosis Kidney And Ureter Disorder Lesion Kidney documented in this encounter Additional Health Concerns Assessment Noted Time PHQ-9 Depression Total Score: 15 2 024 9:47 AM CDT documented as of this encounter Care Teams Microwave Remote Sensing Scientist Relationship Specialty Start Date End Date Silvia Robison M.D. [address] [place] [phone] PCP - General Family Medicine 10/03/23 documented as of this encounter
--- OUTSIDE RECORDS SUMMARY | 2024-01-27 14:34 | XMS_ITS | Encounter Summary ---
Author Organization [facility] Address [address] [place] [address] Care Team Providers Care Centrifugal Screen Tender Name Role Phone Silvia Robison M.D. Primary Care Provider Reason for Visit * Reason Onset Date Comments Med Question 12/27/2023 Encounter Details Date Type Department Care Team (Late st Contact Info) Description 12/27/2023 Clinical Communication Department of Family Medicine, [facility], in [place], [place] [address] [place] [phone] Silvia Robison M.D. [address] [place] [phone] Med Question Social History Tobacco Use Types Packs/Day Years Used Date Smoking Tobacco: Former Cigarettes 0.3 37.1 0 09/21/1983 - 10/31/2020 Passive Smoke Exposure: Current Smokeless Tobacco: Never Quit: 01/12/2018 Comments:1 pack per week Alcohol Use Standard Drinks/Week Comments No 0 (1 standard drink = 0.6 oz pur e alcohol) [facility] Utilities Answer Date Recorded In the [...] Answer Date Recorded PHQ-2 Score 2 10/09/2023 [facility] of Occupat ional Health - Occupational Stress [...] your living situation today? I have a [facility] place to live 10/12/2023 Education Answer Date Recorded What is the highest level of school you have completed or the highest degree you have received? 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 [address] [phone] PCP - General Family Medicine 10/03/23 documented as of this encounter
--- OUTSIDE RECORDS SUMMARY | 2024-01-27 14:34 | XMS_ITS | Encounter Summary ---
Author Organization [facility] Address [address] [place] [address] Care Team Providers Care Inspector [employer]rain [employer] Name Role Phone Silvia Robison M.D. Primary Care Provider Encounter Details Date Type Department Care Team (Late st Contact Info) Description 12/31/2023 Orders Only Department of Family Medicine, [facility], in [place], [place] [address] [place] [phone] Ruchi Sharma M.D. [address] [place] [phone] Diabetes Mellitus Type 2 Hyperglycemia (HCC) Social History Tobacco Use Types Packs/Day Years Used Date Smoking Tobacco: Former Cigarettes 0.3 37.1 0 09/21/1983 - 10/31/2020 Passive Smoke Exposure: Current Smokeless Tobacco: Never Quit: 01/12/2018 Comments:1 pack per week Alcohol Use Standard Drinks/Week Comments No 0 (1 standard drink = 0.6 oz pur e alcohol) [facility] Utilities Answer Date Recorded In [...] often do you attend chur ch or faith services? Never 06/22/2022 Do you belong to any clubs o r organizations such as jew groups, unions, fraternal or athletic groups, or [...] Date Recorded PHQ-2 Score 2 10/09/2023 [facility] of Occupat ional Health - Occupational Stress [...] your living situation today? I have a [facility] place to live 10/12/2023 Education Answer Date Recorded What is the highest level of school you have completed or the highest degree you have received? 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 [address] [place] [phone] PCP - General Family Medicine 10/03/23 documented as of this encounter
--- OUTSIDE RECORDS SUMMARY | 2024-01-27 14:34 | XMS_ITS | Encounter Summary ---
Author Organization [facility] Address [address] [place] [address] Care Team Providers Care Capacitor Inspector Name Role Phone Silvia Robison M.D. Primary Care Provider Reason for Visit * Reason Comments Illness Encounter Details Date Type Department Care Team ([facility] st Contact Info) Description 11/16/2023 12:18 PM CDT - 11/16/2023 12:39 PM CDT Emergency [facility] [address] [place] [phone] Splenomegaly Acquired (Primary Dx) Discharge Disposition: Home or Self Care Social History Tobacco Use Types Packs/Day Years Used Date Smoking Tobacco: Former Cigarettes 0.3 37.1 0 09/21/1983 - 10/31/2020 Passive Smoke Exposure: Current Smokeless Tobacco: Never Quit: 01/12/2018 Comments:1 pack per week Alcohol Use Standard Drinks/Week Comments No 0 (1 standard drink = 0.6 oz pur e alcohol) [facility] Utilities Answer Date Recorded In the past 12 months has [employer] electric, gas, oil, or water company threatened [...] any clubs o r organizations such as episcopalian groups, unions, fraternal or athletic groups, or [...] your living situation today? I have a [facility] place to live 10/12/2023 Education Answer Date Recorded What is the highest level of school you have completed or the highest degree you have received? 12th grade 05/19/2019 Sex and Gender Information Value Date Recorded Sex Assigned at Male 08/16/2019 8:50 PM CDT Gender Identity Male 05/21/2020 12:19 PM PSYCHOLOGIST CHIEF Sexual Orientation Straight 07/10/2017 5: 27 PM [...] kidney, remains concerningfor primary neoplasm. Marshal Hartman APRN C.N.P., M.S.N. IMG CT P ROCEDURES documented [...] (Given - Provid er: Remy Disla(R)(CT), R.T.(R)) sodium chloride 0.9 % injection 10 mL (COMPLETED) 10 mL, intravenous, Once, On 11/16/23 at 1430, For 1 dose 1428 (Given - Provid er: Remy Disla(R)(CT), R.T.(R)) PRN Medication Order 11/14/2023 11/15/2023 11/16/2023 iohexoL 300 mg iodine/mL solution 100 mL (Omnipaque) (COMPLETED) 100 mL, intravenous, Once in imaging, contrast, Starting on 11/16/23 at 1417, For 1 dose 1428 (Given - Provid er: Remy Disla(R)(CT), R.T.(R)) iohexoL 300 mg iodine/mL solution 100 mL (Omnipaque) (COMPLETED) 100 mL, intravenous, Once in imaging, contrast, Starting on 11/16/23 at 1417, For 1 dose 1428 (Given - Provid er: Remy Disla(R)(CT), R.T.(R)) documented in this encounter Additional Health Concerns Assessment Noted Time PHQ-9 Depression Total Score: 15 024 9:47 AM CDT documented as of this encounter Care Teams Capacitor Inspector Relationship Specialty Start Date End Date Silvia Robison M.D. NPJacob: [phone] [address] [place] [phone] PCP - General Family Medicine 10/03/23 documented as of this encounter
--- OUTSIDE RECORDS SUMMARY | 2024-01-27 14:34 | XMS_ITS | Encounter Summary ---
Author Organization [facility] Address [address] [place] [address] Care Team Providers Care Laborer Brush Clearing Name Role Phone Silvia Robison M.D. Primary Care Provider Encounter Details Date Type Department Care Team (Late st Contact Info) Description 12/03/2023 Orders Only [facility] [address] [place] [phone] Silvia Robison M.D. [address] [place] [phone] Screening Cancer Colon Social History Tobacco Use Types Packs/Day Years Used Date Smoking Tobacco: Former Cigarettes 0.3 37.1 0 09/21/1983 - 10/31/2020 Passive Smoke Exposure: Current Smokeless Tobacco: Never Quit: 01/12/2018 Comments:1 pack per week Alcohol Use Standard Drinks/Week Comments No 0 (1 standard drink = 0.6 oz pur e alcohol) [facility] Utilities Answer Date Recorded In the past [...] How often do you attend chur or restoration services? Never 06/22/2022 Do you belong to any clubs o r organizations such as worship groups, unions, fraternal or athletic groups, or [...] your living situation today? I have a [facility] place to live 10/12/2023 Education Answer Date Recorded What is the highest level of school you have completed or the highest degree you have received? 12th grade 05/19/2019 Sex and Gender Information Value Date Recorded Sex Assigned at Male 08/16/2019 8:50 PM CDT Gender Identity Male 05/21/2020 12:19 PM NIB ADJUSTER Sexual Orientation Straight 07/10/2017 5: 27 PM CDT Job Start Date Occupation Industry Not on file Not on file Not on file documented as of this encounter Plan of Treatment Scheduled Orders Name Type Priority Associated Diagnoses Orde r Schedule Cologuard - Sent Out Lab Lab Routine Screening Cancer Colon Expected: 12/17/2023, Expires: 03/04/2025 documented as of this encounter Visit Diagnoses Diagnosis Screening Cancer Colon documented in this encounter Additional Health Concerns Assessment Noted Time PHQ-9 Depression Total Score: 15 024 9:47 AM CDT documented as of this encounter Care Teams Laborer Brush Clearing Relationship Specialty Start Date End Date Silvia Robison M.D. [address] [place] [phone] PCP - General Family Medicine 10/03/23 documented as of this encounter
--- OUTSIDE RECORDS SUMMARY | 2024-01-27 14:34 | XMS_ITS | Encounter Summary ---
Author Organization [facility] Address [address] [place] [address] Care Team Providers Care Director Of Maintenance Name Role Phone Silvia Robison M.D. Primary Care Provider Reason for Visit * Reason Onset Date Comments Medication Problem 12/31/2023 Quantities of 10 mL Encounter Details Date Type Department Care Team (Latest Contact Info) Description 12/31/2023 Clinical Communication Department of Family Medicine, [facility], in [place], [place] [address] [place] [phone] Silvia Robison M.D. [address] [place] [phone] Medication Problem (Quantities of 10 mL) Social History Tobacco Use Types Packs/Day Years Used Date Smoking Tobacco: Former Cigarettes 0.3 37.1 0 09/21/1983 - 10/31/2020 Passive Smoke Exposure: Current Smokeless Tobacco: Never Quit: 01/12/2018 Comments:1 pack per week Alcohol Use Standard Drinks/Week Comments No 0 (1 standard drink = 0.6 oz pur e alcohol) [facility] Utilities Answer Date Recorded In the [...] How often do you attend chur or methodist services? Never 06/22/2022 Do you belong to any clubs o r organizations such as caodaism groups, unions, fraternal or athletic groups, or [...] Answer Date Recorded PHQ-2 Score 2 10/09/2023 [facility] [place] of Occupat ional Health - Occupational Stress [...] your living situation today? I have a [facility] place to live 10/12/2023 Education Answer Date Recorded What is the highest level of school you have completed or the highest degree you have received? 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 [address] [place] [phone] PCP - General Family Medicine 10/03/23 documented as of this encounter
--- OUTSIDE RECORDS SUMMARY | 2024-01-27 14:34 | XMS_ITS | Encounter Summary ---
Author Organization [facility] Address [address] [place] [address] Care Team Providers Care Bus Matron Name Role Phone Silvia Robison M.D. Primary Care Provider Encounter Details Date Type Department Care Team (Late st Contact Info) Description 12/17/2023 Orders Only [facility] [address] [place] [phone] Silvia Robison M.D. [address] [place] [phone] Screening Cancer Colon Social History Tobacco Use Types Packs/Day Years Used Date Smoking Tobacco: Former Cigarettes 0.3 37.1 0 09/21/1983 - 10/31/2020 Passive Smoke Exposure: Current Smokeless Tobacco: Never Quit: 01/12/2018 Comments:1 pack per week Alcohol Use Standard Drinks/Week Comments No 0 (1 standard drink = 0.6 oz pur e alcohol) [facility] Utilities Answer Date Recorded In the past [...] How often do you attend chur or congregation services? Never 06/22/2022 Do you belong to [...] Answer Date Recorded PHQ-2 Score 2 10/09/2023 [facility] of Occupat ional Health - Occupational [...] your living situation today? I have a [facility] place to live 10/12/2023 Education Answer Date Recorded What is the highest level of school you have completed or the highest degree you have received? 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 [address] [place] [phone] PCP - General Family Medicine 10/03/23 documented as of this encounter
--- OUTSIDE RECORDS SUMMARY | 2024-01-27 14:34 | XMS_ITS | Encounter Summary ---
Author Organization [facility] Address [address] [place] [address] Care Team Providers Care Casino Attendant Name Role Phone Silvia Robison M.D. Primary Care Provider Reason for Visit * Reason Comments Med Refill Encounter Details Date Type Department Care Team (Late st Contact Info) Description 11/07/2023 Refill Department of Family Medicine, [facility], in [place], [place] [address] [place] [phone] Silvia Robison M.D. [address] [place] [phone] Med Refill Social History Tobacco Use Types Packs/Day Years Used Date Smoking Tobacco: Former Cigarettes 0.3 37.1 0 09/21/1983 - 10/31/2020 Passive Smoke Exposure: Current Smokeless Tobacco: Never Quit: 01/12/2018 Comments:1 pack per week Alcohol Use Standard Drinks/Week Comments No 0 (1 standard drink = 0.6 oz pur e alcohol) [facility] Utilities Answer Date Recorded In the [...] often do you attend chur ch or christian services? Never 06/22/2022 Do you belong to [...] Answer Date Recorded PHQ-2 Score 2 10/09/2023 [facility] [place] of Occupat ional Health - Occupational Stress [...] living situation today? I have a [facility] place to live 10/12/2023 Education Answer Date Recorded What is the highest level of school you have completed or the highest degree you have received? 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 [address] [facility] [place] [phone] PCP - General Family Medicine 10/03/23 documented as of this encounter
--- OUTSIDE RECORDS SUMMARY | 2024-01-27 14:35 | XMS_ITS | Clinical Summary ---
Author Organization [facility] Address [place], [place] [address] Care Team Providers Care Clinical Account Manager Name Role Phone Silvia Robison MD Primary [...] Date Abnormal levels of other serum enzymes Overview (06/19/2022): -noted on previous lab draws versus dating back to 2019 Last Assessment & Plan: -continue to monitor. -consider liver ultrasound to assess for nonalcoholic fatty liver disease -consider viral hepatitis panel Depressive disorder 05/17/2022 Overview (06/19/2022): 22 April 2022: PHQ = 24 -patient [...] future visits Hypertensive kidney disease, stage III Overview (06/19/2022): 02/2021: Average blood pressure was elevated with [...] goal today -Continue to monitor. Hyperlipidemia 08/26/2020 Overview (06/19/2022): Goal LDL < 70. Has been prescribed Lipitor 20 mg daily. Chronic sinusitis 07/20/2020 Overview (06/19/2022): -Currently on Fluticasone nasal Last Assessment & Plan: -Will obtain more history at next visit -Consider ENT referral/ CT sinus/maxillofacial Gout 10/15/2019 Overview (06/19/2022): Allopurinol 100 mg twice daily 10/27/2020 Discussed [...] next 3 days Chronic: recommended checking with Samm Lucas 1) is there a concern about allopurinol and your kidney stones? 2) what is the best dose of allopurinol - uric acid should be below 5-6 (last time it was checked was September 2019 and it was 9.0) Nephrolithiasis 07/15/2019 Overview (06/19/2022): Added automatically from request for surgery [id number] Added automatically from request for surgery [id number] Type 2 diabetes mellitus without complication Overview (06/19/2022): Last A1C 7.5 03/2020 - metformin 1 [...] in appointment in june Erectile dysfunction 09/23/2017 Overview (06/19/2022): Previously on Deeptia and Galens. Essential hypertension 09/23/2017 Overview (06/19/2022): Referred the HTN clinic 12/2019 - taking lisinopril 40 mg, labetalol 200 mg bid, clonidine 0.1 mg bid, amlodipine 10 mg 06/2020 well controlled - encouraged to schedule with NEPH/HTN as having issues with ED Gastroesophageal reflux disease 09/23/2017 Overview (06/19/2022): prilosec 20 mg daily Protonix 40 b.i.d. 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 03/2 09/2023 Overview (06/19/2022): Gabapentin 300 am, 600 pm, 900 HS Meloxicam 15 mg Gabapentin 300 am, 600 pm, 900 HS Meloxicam 15 mg Encounters Date Type Department Care Team Description 01/24/2024 Refill [facility] [address] [place] [address] Drake Cook MD Refill Request (Gabapentin) 11/29/2023 Telephone [facility] [address] [place] [address] Silvia Robison MD Questions (Glasses) 11/18/2023 Telephone [facility] [address] [place] [address] Hortencia Roberts LSW ER Follow up 11/16/2023 12:39 PM CDT - 11/16/2023 3:46 PM CDT Emergency [facility] [address] [place] [address] Marshal Hartman, TYLER 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); Splenomegaly; Acute otitis externa of left ear, unspecified type; Nausea Discharge Disposition: Home Self Care 11/16/2023 Travel 11/07/2023 Refill [facility] [address] [place] [address] Drake Cook MD Refill Request (Gabapentin) from [...] (1 of 2) 2022 COVID-19 vaccine series (2023- season) 2023 05/01/2021, 03/03/2021 Influenza for age [...] (ABNORMAL) GLUCOSE METER (11/16/2023 3:16 PM CDT) GLUCOSE METER 449(H) 65 - 100 mg/dL 11/16/2023 3:17 PM CDT [facility] Blood BLOOD SPECIMEN / Unknown 11/16/2023 3:16 PM CDT 11/16/2023 3:17 PM CDT Marshal Hartman TYLER CHEMISTRY [facility] [address] [phone] * XR CHEST 1 VIEW PORTABLE (11/16/2023 3:05 PM CDT) Anatomical Region Laterality Modality HEART, THORAX, CHEST Digital Rad iography Marshal Hartman [employer] [facility] * CT Abdomen Pelvis w IV (Oral Contrast NO) (11/16/2023 2:44 PM CDT) Anatomical Region Laterality Modality Abdomen, Pelvis, AORTA, LIVER, SPLEEN Computed Tomography Marshal Hartman [employer] CT * (ABNORMAL) CBC WITH AUTO DIFFERENTIAL (11/16/2023 1:20 PM CDT) WHITE BLOOD COUNT 7.4 4.5 - 11.0 thou/cu mm 11/16/2023 1:29 PM [facility] RED BLOOD COUNT 4.33 4.30 - 5.90 mil/cu mm 11/16/2023 1:29 PM [facility] HEMOGLOBIN 13.2(L) 13.5 - 17.5 g/dL 11/16/2023 1:29 PM [facility] HEMATOCRIT 39.4 37.0 - 53.0 % 11/16/2023 1:29 PM [facility] MCV 91 80 - 100 fL 11/16/2023 1:29 PM [facility] MCH 30.5 26.0 - 34.0 pg 11/16/2023 1:29 PM [facility] MCHC 33.5 32.0 - 36.0 g/dL 11/16/2023 1:29 PM [facility] RDW 14.6 11.5 - 15.5 % 11/16/2023 1:29 PM [facility] PLATELET COUNT 184 140 - 440 thou/cu mm 11/16/2023 1:29 PM [facility] MPV 12.0(H) 6.5 - 11.0 fL 11/16/2023 1:29 PM [facility] % NEUT 64.4 % 11/16/2023 1:29 PM [facility] % LYMPH 21.3 % 11/16/2023 1:29 PM [facility] % MONO 8.4 % 11/16/2023 1:29 PM [facility] % EOS 5.4 % 11/16/2023 1:29 PM [facility] % BASO 0.5 % 11/16/2023 1:29 PM [facility] ABSOLUTE NEUTROPHILS 4.7 1.7 - 7.0 thou/cu mm 11/16/2023 1:29 PM [facility] ABSOLUTE LYMPHOCYTES 1.6 0.9 - 2.9 thou/cu mm 11/16/2023 1:29 PM [facility] ABSOLUTE MONOCYTES 0.6 <0.9 thou/cu mm 11/16/2023 1:29 PM [facility] ABSOLUTE EOSINOPHILS 0.4 <0.5 thou/cu mm 11/16/2023 1:29 PM [facility] ABSOLUTE BASOPHILS 0.0 <0.3 thou/cu mm 11/16/2023 1:29 PM [facility] Blood BLOOD SPECIMEN / Unknown IV Start / Unknown 11/16/2023 1:20 PM CDT 11/16/2023 1:24 PM T Marshal Hartman [employer] HEMATOLOGY [facility] [address] [address] * BETA HYDROXYBUTYRATE IN HOUSE (11/16/2023 1:20 PM CDT) BETA HYDROXYBUTYRATE <0.6 <0.6 mmol/L 11/16/2023 1:29 PM [facility] Blood BLOOD SPECIMEN / Unknown IV Start / Unknown 11/16/2023 1:20 PM CDT 11/16/2023 1:28 PM CDT Marshal Hartman NP SEND OUTS Performing Organization Address [facility]/ZIP Co de Phone Number [facility] [address] [phone] * (ABNORMAL) BLOOD GAS,VENOUS (11/16/2023 1:20 PM CDT) PH, VENOUS 7.39 7.32 - 7.43 11/16/2023 1:27 PM T [facility] PCO2, VENOUS 34(L) 41 - 51 mmHg 11/16/2023 1:27 PM T [facility] PO2, VENOUS 46(H) 35 - 40 mmHg 11/16/2023 1:27 PM T [facility] HCO3,VENOUS 21(L) 22 - 29 mmol/L 11/16/2023 1:27 PM [facility] BASE EXCESS, VENOUS, POCT -3.6(L) -2.0 - 3.0 11/16/2023 1:27 PM [facility] O2 SATURATION, VENOUS 79(H) 70 - 75 % 11/16/2023 1:27 PM [facility] PATIENT TEMPERATURE 37.0 Degrees C 11/16/2023 1:27 PM T [facility] Blood VENOUS BLOOD SPECIMEN / Unknown IV Start / Unknown 11/16/2023 1:20 PM CDT 11/16/2023 1:24 PM CDT Marshal Hartman NP CHEMISTRY Performing Organization Address City/[facility]/ZIP Co de Phone Number [facility] [address] [phone] * (ABNORMAL) Lipase (11/16/2023 1:20 PM CDT) LIPASE 69.8(H) 13.0 - 60.0 IU/L 11/16/2023 1:51 PM T [facility] Blood BLOOD SPECIMEN / Unknown IV Start / Unknown 11/16/2023 1:20 PM CDT 11/16/2023 1:24 PM CDT Araya Dunia Hartman [employer] CHEMISTRY [facility] [address] [phone] * (ABNORMAL) Comp Metabolic Panel (11/16/2023 1:20 PM CDT) SODIUM 128(L) 136 - 145 mmol/L 11/16/2023 2:15 PM [facility] POTASSIUM 5.2(H) 3.5 - 5.1 mmol/L 11/16/2023 2:15 PM [facility] CHLORIDE 94(L) 98 - 107 mmol/L 11/16/2023 2:15 PM [facility] CO2,TOTAL 19(L) 22 - 29 mmol/L 11/16/2023 2:15 PM [facility] ANION GAP 15 5 - 18 11/16/2023 2:15 PM [facility] GLUCOSE 725(HH) 70 - 99 mg/dL 11/16/2023 2:15 PM [facility] CALCIUM 9.4 8.6 - 10.0 mg/dL 11/16/2023 2:15 PM [facility] BUN 17 6 - 20 mg/dL 11/16/2023 2:15 PM [facility] CREATININE 1.46(H) 0.70 - 1.20 mg/dL 11/16/2023 2:15 PM [facility] BUN/CREAT RATIO 12 10 - 20 2:15 PM [facility] eGFR 58(L) >90 mL/min/1.7 3m2 11/16/2023 2:15 PM [facility] Comment:As of 2021, eG FR is calculated by the CKD-EPI creatinine equation without race adjustment. ??eGFR can be influenced by muscle mass, exercise, and diet. ??The reported eGFR is an estimation only and is only applicable if the renal function is stable. ALBUMIN 4.4 4.0 - 4.9 g/dL 11/16/2023 2:15 PM CDT [facility] PROTEIN,TOTAL 6.9 6.0 - 8.0 g/dL 11/16/2023 2:15 PM CDT [facility] BILIRUBIN,TOTAL 0.5 0.0 - 1.2 mg/dL 11/16/2023 2:15 PM CDT [facility] ALK PHOSPHATASE 118 40 - 129 IU/L 11/16/2023 2:15 PM CDT [facility] ALT (SGPT) 44 10 - 50 IU/L 11/16/2023 2:15 PM CDT [facility] AST (SGOT) 37 10 - 50 IU/L 11/16/2023 2:15 PM CDT [facility] Blood BLOOD SPECIMEN / Unknown IV Start / Unknown 11/16/2023 1:20 PM CDT 11/16/2023 1:24 PM CDT Marshal Hartman NP CHEMISTRY Performing Organization Address City/[facility]/ZIP Co de Phone Number [facility] [address] [phone] * COVID-19 MOLECULAR (11/16/2023 1:14 PM CDT) Pathologist [facility] COVID 19 [place]INA MOLECULAR Not detected Not detected 11/16/2023 1:57 PM CDT [facility] TESTING LABORATORY [facility] 11/16/2023 1:57 PM CDT [facility] Comment:Specimen submitted t o [facility] for testing. Other SPECIMEN FROM NASOPHARYNGEAL STRUCTURE / Unknown Non-Blood / Unknown 11/16/2023 1:14 PM CDT 11/16/2023 1:33 PM CDT Marshal Hartman NP MICROBIOLOGY Performing Organization Address City/[facility]/ZIP Co de Phone Number [facility] [address] [phone] * URINALYSIS MICROSCOPIC (11/16/2023 1:14 PM CDT) RBC None Seen 0-2, None Seen /HPF 11/16/2023 1:44 PM [facility] WBC 0-2 0-2, 3-5, None Seen /HPF 11/16/2023 1:44 PM [facility] BACTERIA Rare None Seen, Rare, Few Bacteria/H PF 11/16/2023 1:44 PM [facility] EPITHELIAL CELLS Few None Seen, Few Epi/HPF 11/16/2023 1:44 PM [facility] Urine URINE SPECIMEN / Unknown Non-Blood / Unknown 11/16/2023 1:14 PM CDT 11/16/2023 1:33 PM CDT Marshal Hartman [employer] URINE Performing Organization Address City/State/[facility] Co de Phone Number [facility] [address] [phone] * (ABNORMAL) Urinalysis W Reflex Microscopic if Positive (11/16/2023 1:14 PM CDT) COLOR Yellow Yellow Color 11/16/2023 1:39 PM [facility] CLARITY Clear Clear Clarity 11/16/2023 1:39 PM [facility] SPECIFIC GRAVITY,URINE <=1.005(A) 1.010, 1.015, 1.020, 1.025 11/16/2023 1:39 PM [facility] PH,URINE 5.5 6.0, 7.0, 8.0, 5.5, 6.5, 7.5, 8.5 11/16/2023 1:39 PM [facility] UROBILINOGEN, QUALITATIVE Normal Normal EU/dl 11/16/2023 1:39 PM [facility] PROTEIN, URINE Negative Negative mg/dL 11/16/2023 1:39 PM [facility] GLUCOSE, URINE >=1000(A) Negative mg/dL 11/16/2023 1:39 PM [facility] KETONES,URINE Negative Negative mg/dL 11/16/2023 1:39 PM [facility] BILIRUBIN,URI NE Negative Negative 11/16/2023 1:39 PM CDT [facility] OCCULT BLOOD,URINE Negative Negative 11/16/2023 1:39 PM CDT [facility] NITRITE Negative Negative 11/16/2023 1:39 PM CDT [facility] LEUKOCYTE ESTERASE Negative Negative 11/16/2023 1:39 PM CDT [facility] Urine URINE SPECIMEN / Unknown Non-Blood / Unknown 11/16/2023 1:14 PM CDT 11/16/2023 1:33 PM CDT Marshal Conklinen Minnie [employer] URINE [facility] [address] [place] [phone] * (ABNORMAL) LIPID PANEL W REFLEX MEASURED LDL (07/09/2023 10:31 AM CDT) CHOLESTEROL,TOTAL 132 100 - 199 mg/dL 07/09/2023 2:[address] [facility] Comment: Cholesterol, Total Reference Ranges Desirable <200 mg/dL Borderline 200-239 mg/dL High >=240 mg/dL TRIGLYCERIDES 225(H) <150 mg/dL 07/09/2023 2:[address] [facility] HDL CHOLESTEROL 35(L) >40 mg/dL 2:[address] [facility] NON-HDL CHOLESTEROL 97 <145 mg/dl 07/09/2023 2:[address] [facility] CHOL/HDL RATIO 3.77 <4.50 07/09/2023 2:[address] [facility] LDL CHOLESTEROL 52 <=130 mg/dL 07/09/2023 2:[address] [facility] VLDL CHOLESTEROL 45(H) <=30 mg/dL 07/09/2023 2:[address] [facility] PROVIDER ORDERED STATUS FASTING 07/09/2023 2:[address] [facility] Blood BLOOD SPECIMEN / Unknown Venipuncture / Unknown 07/09/2023 10:31 AM CDT 07/09/2023 10:32 AM CDT Leeroy MONTGOMERY CHEMISTRY [facility] [employer] [facility] [address] [place] [address], from Last 3 Months or Most Recently Relevant to Health Maintenance Care Teams Clinical Account Manager Relationship Specialty Start Date End Date Silvia Robison MD [address] [place] [address] PCP - General Family Practice 09/02/23
[2024-01-27 14:36] LABS: Bacteria Urine Few; RBC Urine 0-2 (0-2); Squamous Epithelial Cell Urine Few (None-Few)
[2024-01-27 17:00] VITALS: BP 132/70; PULSE 86; RESP 18; O2SAT 99
[2024-01-27 17:20] VITALS: BP 141/89; PULSE 88; RESP 18; TEMP 36.7
== END 2024-01-27 17:20 | disposition home or self-care (01) ==
PROVIDERS: Emergency Provider Family Medicine
DX: J32.9 Chronic sinusitis, unspecified (principal); H61.22 Impacted cerumen, left ear; R30.0 Dysuria
CPT/HCPCS: 51798; 81001; 87086; 99284

== ENCOUNTER 2025-01-23 05:22 | Outpatient (CLI) | payer OTHER, SELFPAY | END 2025-01-23 05:23 | disposition home or self-care (01) | LOC: AMB 01-26 15:00 | PROVIDERS: PCP Student in an Organized Health Care Education/Training Program; Visit Provider Family Medicine | DX: H92.20 Otorrhagia, unspecified ear (principal); R11.2 Nausea with vomiting, unspecified | CPT/HCPCS: A0425; A0429 ==

== ENCOUNTER 2025-01-23 05:39 | Emergency (ER) | payer OTHER, SELFPAY ==
--- OUTSIDE RECORDS SUMMARY | 2024-12-08 11:09 | XMS_ITS | Encounter Summary ---
Author Organization [facility] Address [address] [place] [address] Care Team Providers Care State Appellate Clerk Name Role Phone Silvia Robison M.D. Primary Care Provider Reason for Referral * Outpatient (Routine) - Closed Specialty Diagnoses / Procedures Referred By Franky zeng Referred To Contact Diagnoses Fracture Hand Multiple Closed Initial Left Fracture Wrist Closed Initial Right Procedures DX Wrist Right PA and Lateral with Tilt Lateral 3 Views Saba Rogers P.A.-C. [address] [place] [address] Phone: tel: fax: [facility] Referral ID Status Reason Start Date Expiration Date Visits Re quested Visits Authorized [id number] Closed 12/08/2024 03/10/2026 1 1 Reason for Visit * Outpatient (Routine) - Closed Specialty Diagnoses / Procedures Referred By Franky zeng Referred To Contact Diagnoses Fracture Hand Multiple Closed Initial Left Fracture Wrist Closed Initial Right Procedures DX Wrist Right PA and Lateral with Tilt Lateral 3 Views Saba Rogers P.A.-C. [address] [place] [address] Phone: tel: fax: [facility] Referral ID Status Reason Start Date Expiration Date Visits Re quested Visits Authorized [id number] Closed 12/08/2024 03/10/2026 1 1 Encounter Details Date Type Department Care Team (Latest Contact Info) Description 12/08/2024 11:09 AM CDT - 12/08/2024 11:59 PM CDT Hospital Encounter Department of Radiology, [facility], in [place], [place] [address] [place] [address] Saba Rogers P.A.-C. [address] [place] [address] Fracture Hand Multiple Closed Initial Left; Fracture Wrist Closed Initial Right Discharge Disposition: Home or Self Care Social History Tobacco Use Types Packs/Day Years Used Date Smoking Tobacco: Former Cigarettes 0.6 70.8 0 09/21/1983 - 10/31/2020 Passive Smoke Exposure: Current Smokeless Tobacco: Never Quit: 01/12/2018 Comments:1 pack per week Alcohol Use Standard Drinks/Week Comments Not Currently 0 (1 standard drink = 0.6 oz pur e alcohol) Humiliation, Afraid, Rape, and Kick questionnair e Answer Date Recorded Within the last year, have y ou been afraid of your partner or ex-partner? No 11/10/2024 Within the last year, have y ou been humiliated or emotionally abused in other ways by your partner or ex-partner? No Within the last year, have y ou been kicked, hit, slapped, or otherwise physically hurt by your partner or ex-partner? No 11/10/2024 Within the last year, have y ou been raped or forced to have any kind of sexual activity by your partner or ex-partner? No 11/10/2024 Hunger Vital Sign Answer Date Recorded Within the past 12 months, y ou worried that your food would run out before you got the money to buy more. Never true 11/11/19 25 Within the past 12 months, t he food you bought just didn't last and you didn't have money to get more. Never true 11/10/2024 PRAPARE - Transportation Answer Date Re corded In the past 12 months, has l ack of transportation kept you from medical appointments or from getting medications? No 10/21 In the past 12 months, has l ack of transportation kept you from meetings, work, or from getting things needed for daily living? No 11/10/2024 [facility] Utilities Answer Date Recorded In the past 12 months has th e electric, gas, oil, or water company threatened to shut off services in your home? No 11/10/2024 Depression Answer Date Recor ded PHQ-9 Total Score (max 27) 11 10/23 Housing Stability Answer Date Recorded What is your living situation today? I h ave a place to live today, but I am worried about losing it in the future 11/10/2024 Education Answer Date Recorded What is the highest level of school you have completed or the highest degree you have received? 12th grade 05/19/2019 Sex and Gender Information Value Date Recorded Sex Assigned at Male 08/16/2019 8:50 PM CDT Legal Sex Male 8:09 PM CDT Gender Identity Male 05/21/2020 12:19 PM COMPUTER FORENSICS EXAMINER Sexual Orientation Straight 07/10/2017 5: 27 PM CDT documented as of this encounter Medications at Time of Discharge allopurinoL (Zyloprim) 100 mg tablet Take 1 tablet by mouth twice daily 180 tablet 3 5 atorvastatin (Lipitor) 20 mg tablet Take 1 tablet by mouth once daily 90 tablet 3 5 blood sugar diagnostic strips 2 test daily. 200 test 3 3 blood-glucose meter misc Test as directed for diabetes control. 1 each 1 cloNIDine (Catapres) 0.1 mg tablet Take 1 tablet by mouth twice daily 180 tablet 3 5 gabapentin (Neurontin) 300 mg capsuleIndications: Neuropathy Take 1 capsule in the morning, 2 capsules in the afternoon and 3 at bedtime 180 capsule 11 5 Jardiance 25 mg tabletIndications:D iabetes Mellitus Type 2 Hyperglycemia (HCC) TAKE 1 TABLET BY MOUTH ONCE DAILY BEFORE MEAL(S) IN THE MORNING 90 tablet 5 labetaloL 200 mg tablet Take 1 tablet by mouth twice daily 180 tablet 3 5 lisinopriL 40 mg tablet Take 1 tablet by mouth once daily 90 tablet 3 5 meloxicam (Mobic) 15 mg tabletIndications:P ain Back,Pain Leg Right Take 1 tablet (15 mg total) by mouth daily. 90 tablet 3 5 metFORMIN XR (Glucophage-XR) 500 mg 24 hr tablet Take 2 tablets by mouth twice daily 360 tablet 5 ondansetron ODT (Zofran-ODT) 4 mg disintegrating tablet Dissolve 1 tablet (4 mg total) in the mouth every 6 (six) hours as needed for nausea or vomiting. 6 tablet 5 oxyCODONE (Roxicodone) 5 mg immediate release tabletIndications:A cute Pain Take 1 tablet (5 mg total) by mouth every 6 (six) hours as needed for pain Indication: Acute Pain. 5 tablet 5 pantoprazole (Protonix) 40 mg EC tablet Take 1 tablet (40 mg total) by mouth 2 (two) times a day before morning and evening meals. 180 tablet 3 5 semaglutide (Ozempic) 0.25 mg or 0.5 mg (2 mg/3 mL) injectionIndication s:Diabetes Mellitus Type 2 Without Complication (HCC) Inject 0.5 mg under the skin every 7 (seven) days. 9 mL 3 5 08/19/19 26 sennosides (Senokot) 8.6 mg tablet Take 1 tablet (8.6 mg total) by mouth 2 (two) times a day. Continue taking daily until no longer requiring prescription pain medications 5 sildenafiL (Viagra) 100 mg tablet Take 1 tablet (100 mg total) by mouth daily as needed for erectile dysfunction. 10 tablet 1 5 sodium chloride (SALINE NASAL MIST NASAL) Administer into nostril(s) daily as needed. For nasal congestion traMADoL (Ultram) 50 mg tabletIndications:A cute Pain Indications: Acute Pain. 1 tab every 6 hours as needed for pain 6 tablet 5 acetaminophen (TylenoL) 500 mg tablet Take 2 tablets (1,000 mg total) by mouth every 6 (six) hours for 30 days. Take 2 tablets every 6 hours. 5 09/18/20 25 acetaminophen (TylenoL) 500 mg tablet Take 2 tablets (1,000 mg total) by mouth every 6 (six) hours as needed for pain, fever, mild pain or score 1-3 of 10 or headaches. for pain; Can purchase over the counter; Maximum acetaminophen should not exceed 4,000 mg in 24 hours from all sources. 5 01/08/20 25 amLODIPine (Norvasc) 10 mg tablet Take 1 tablet by mouth once daily 90 tablet 3 4 01/13/20 25 buPROPion XL (Wellbutrin XL) 150 mg 24 hr tablet Take 1 tablet (150 mg total) by mouth every morning. Needs an appointment for further refills 90 tablet 5 01/19/20 25 Semglee,insulin glargine-yfgn, 100 unit/mL vial Inject 42 Units under the skin daily. Take once daily in the morning. Dose adjust as directed 5 01/06/20 25 documented as of this encounter Plan of Treatment Upcoming Encounters Date Type Department Care Team (Latest Contact Info) Description 01/29/2025 2:00 PM CDT Comprehensive Visit Department of Physical Medicine and Rehabilitation in [place], [place] [address] [place] [address] [place] [address] Ashli Kincaid APRN, C.N.P., M.S.N. [address] [place] [phone] Imtiaz Barker M.S., P.T., D.P.T. [address] [place] [phone] 02/02/2025 10:00 AM CDT Clinical Support Department of Physical Medicine and Rehabilitation in [place], [place] [address] [place] [phone] Alexys Mensah M.B.B.S. [address] [place] [phone] Linda Parra, MikelH.T., O.T. [address] [place] [phone] 02/03/2025 2:00 PM CDT Clinical Support Department of Physical Medicine and Rehabilitation in [place], [place] [address] [place] [phone] Ashli Kincaid APRN, C.N.P., M.S.N. [address] [place] [phone] Imtiaz Barker M.S., P.T., D.P.T. [address] [place] [phone] 02/09/2025 4:00 PM CDT Comprehensive Visit Department of Physical Medicine and Rehabilitation in [place], [place] [address] [place] [address] Ashli Kincaid APRN, C.N.P., M.S.N. [address] [place] [phone] Julián Luz, M.A., O.T. [address] [place] [phone] 02/22/2025 10:00 AM COMPUTER FORENSICS EXAMINER Clinical Support Department of Physical Medicine and Rehabilitation in [place], [place] [address] [place] [address] Ashli Kincaid APRN, C.NHeather, M.S.N. [address] [place] [phone] Julián Luz M.A., O.T. [address] [place] [phone] 03/15/2025 10:00 AM COMPUTER FORENSICS EXAMINER Appointment Department of Radiology, [facility], in [place], [place] [address] [place] [phone] Renee Lassiter M.D. [address] [place] [phone] Discharge Disposition: Home or Self Care 03/15/2025 10:30 AM COMPUTER FORENSICS EXAMINER Office Visit Department of Orthopedic Surgery in [place], [place] [address] [place] [phone] Alexys Mensah M.B.B.S. [address] [place] [phone] 03/15/2025 11:00 AM COMPUTER FORENSICS EXAMINER Clinical Support Department of Physical Medicine and Rehabilitation in [place], [place] [address] [place] [phone] Alexys Mensah M.B.B.S. [address] [place] [phone] Carlos Perez, MikelHSammT., O.T. [address] [place] [phone] 03/15/2025 1:00 PM COMPUTER FORENSICS EXAMINER Office Visit Section of Preventive, Transportation and Occupational Medicine in [address] [phone] Ashli Kincaid APRN, C.N.P., M.S.N. [address] [place] [phone] documented as of this encounter Procedures Procedure Name Priority Date/Time Associated Diagnosis Comments DX WRIST RIGHT PA AND LATERAL WITH TILT LATERAL 3 VIEWS RAD - Routine (most inpatients and all outpatients) 12/08/2024 11:33 AM CDT Fracture Hand Multiple Closed Initial Left Fracture Wrist Closed Initial Right documented in this encounter Results * DX Wrist Right PA and Lateral with Tilt Lateral 3 Views (12/08/2024 11:33 AM CDT) Anatomical Region Laterality Modality Upper Extremity, Wrist, Musc uloskeletal RST LOS, Musculoskeletal ARZ LOS, Muskuloskeletal FLA LOS Right Digit al Radiography Impressions 12/08/2024 11:41 AM CDT Comparison to 11/09/2024. Scapholunate advanced collapse, similar to that observed on the prior study. 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 Small heterotopic ossification along the dorsal aspect of the distal radius likely represents sequela of dorsal capsular avulsion, unchanged. Narrative 12/08/2024 11:41 AM CDT EXAM: DX WRIST RIGHT PA AND LATERAL WITH TILT LATERAL 3 VIEWS Procedure Note Bridger Lizarraga M.D. - 12/08/2024 EXAM: DX WRIST RIGHT PA AND LATERAL WITH TILT LATERAL 3 VIEWS IMPRESSION: Comparison to 11/09/2024. Scapholunate advanced collapse, similar to that observed on the priorstudy. Advanced radiocarpal and intercarpal joint degeneration. [id number] CMC and STT joint degeneration. Small heterotopic ossification alongthe dorsal aspect of the distal radius likely represents sequela of dorsal capsular avulsion, unchanged. Saba Rogers P.A.-C. [facility] DI[facility]NOSTIC IMAGING PROCEDURES Final Result documented in this encounter Visit Diagnoses Diagnosis Fracture Hand Multiple Closed Initial Left Fracture Wrist Closed Initial Right documented in this encounter Additional Health Concerns Assessment Noted Time PHQ-9 Depression Total Score: 11 10/23/ 025 6:47 AM CDT documented as of this encounter Care Teams State Appellate Clerk Relationship Specialty Start Date End Date Silvia Robison M.D. [address] [place] [phone] PCP - General Family Medicine 10/03/23 documented as of this encounter
--- OUTSIDE RECORDS SUMMARY | 2024-12-08 11:09 | XMS_ITS | Encounter Summary ---
Author Organization [facility] Address [address] [place] [address] Care Team Providers Care Director Of Securities And Real Estate Name Role Phone Silvia Robison M.D. Primary Care Provider Reason for Referral * Outpatient (Routine) - Closed Specialty Diagnoses / Procedures Referred By Franky zeng Referred To Contact Diagnoses Fracture Hand Multiple Closed Initial Left Fracture Wrist Closed Initial Right Procedures DX Hand Left 3+ Views Saba Rogers P.A.-C. [address] [place] [address] Phone: tel: fax: [facility] Referral ID Status Reason Start Date Expiration Date Visits Re quested Visits Authorized [id number] Closed 12/08/2024 03/10/2026 1 1 Reason for Visit * Outpatient (Routine) - Closed Specialty Diagnoses / Procedures Referred By Franky zeng Referred To Contact Diagnoses Fracture Hand Multiple Closed Initial Left Fracture Wrist Closed Initial Right Procedures DX Hand Left 3+ Views Saba Rogers P.A.-C. [address] [place] [address] Phone: tel: fax: [facility] Referral ID Status Reason Start Date Expiration Date Visits Re quested Visits Authorized [id number] Closed 12/08/2024 03/10/2026 1 1 Encounter Details Date Type Department Care Team (Latest Contact Info) Description 12/08/2024 11:09 AM CDT - 12/08/2024 11:59 PM CDT Hospital Encounter Department of Radiology, [facility], in [place], [place] [address] [place] [address] Saba Rogers P.A.-C. [address] [place] [address] Fracture Hand Multiple Closed Initial Left; Fracture [...] things needed for daily living? No 11/10/2024 [facility] Utilities Answer Date Recorded In the [...] CDT Gender Identity Male 05/21/2020 12:19 PM STRINGED INSTRUMENT TUNER Sexual Orientation Straight 07/10/2017 5: 27 PM CDT documented as of this encounter Medications at Time of Discharge allopurinoL (Zyloprim) 100 mg tablet Take 1 tablet by mouth twice daily 180 tablet 3 5 atorvastatin (Lipitor) 20 mg tablet Take 1 tablet by mouth once daily 90 tablet 3 5 blood sugar diagnostic strips 2 test daily. 200 test 3 3 blood-glucose meter mis Test as directed for diabetes control. 1 [...] Take 2 tablets every 6 hours. 5 01/08/20 25 acetaminophen (TylenoL) 500 mg tablet Take [...] Department of Physical Medicine and Rehabilitation in [address] [place] [address] Ashli Kincaid APRN, C.N.P., M.S.N. [address] [place] [phone] Imtiaz Barker M.S., P.T., D.P.T. [address] [place] [phone] 02/02/2025 10:00 AM CDT Clinical Support Department of Physical Medicine and Rehabilitation in [place], [place] [address] [place] [phone] Alexys Mensah M.B.BSammS. [address] [place] [phone] Linda Parra C.H.T., O.T. [address] [place] [phone] 02/03/2025 2:00 PM CDT Clinical Support Department of Physical Medicine and Rehabilitation in [place], [place] [address] [place] [phone] Ashli Kincaid APRN, C.N.P., M.S.N. [address] [place] [phone] Imtiaz Barker M.S., P.T., D.P.T. [address] [place] [phone] 02/09/2025 4:00 PM CDT Comprehensive Visit Department of Physical Medicine and Rehabilitation in [place], [place] [address] [place], [place] [phone] Ashli Kincaid APRN, C.N.P., M.S.N. [address] [place] [phone] Julián Luz, M.A., O.T. [address] [place] [phone] 02/22/2025 10:00 AM STRINGED INSTRUMENT TUNER Clinical Support Department of Physical Medicine and Rehabilitation in [place], [place] [address] [place] [phone] Ashli Kincaid APRN, C.N.P., M.S.N. [address] [place] [phone] Julián Luz M.A., O.T. [address] [place] [phone] 03/15/2025 10:00 AM STRINGED INSTRUMENT TUNER Appointment Department of Radiology, [facility], in [place], [place] [address] [place] [phone] Renee Lassiter M.D. [address] [place] [phone] Discharge Disposition: Home or Self Care 03/15/2025 10:30 AM STRINGED INSTRUMENT TUNER Office Visit Department of Orthopedic Surgery in [place], [place] [address] [place] [phone] Alexys Mensah M.B.B.S. [address] [place] [phone] 03/15/2025 11:00 AM STRINGED INSTRUMENT TUNER Clinical Support Department of Physical Medicine and Rehabilitation in [place], [place] [address] [place] [phone] Alexys Mensah M.B.B.S. [address] [place] [phone] Carlos Perez C.H.T., O.T. [address] [place] [phone] 03/15/2025 1:00 PM STRINGED INSTRUMENT TUNER Office Visit Section of Preventive, Transportation and Occupational Medicine in [address] [phone] Ashli Kincaid APRN, C.N.P., M.S.N. [address] [place] [phone] documented as of this encounter Procedures Procedure Name Priority Date/Time Associated Diagnosis Comments DX HAND LEFT 3+ VIEWS RAD - Routine (most inpatients and all outpatients) 12/08/2024 11:35 AM CDT Fracture Hand Multiple Closed Initial Left Fracture Wrist Closed Initial Right documented in this encounter Results * DX Hand Left 3+ Views (12/08/2024 11:35 AM CDT) Anatomical Region Laterality Modality Upper Extremity, Hand, Muscu loskeletal RST LOS, Musculoskeletal ARZ LOS, Muskuloskeletal FLA LOS Left Digit al Radiography Impressions 12/08/2024 11:48 AM CDT Comparison 11/24/2024. Reduced and internally fixated distal left radial fracture appears healed. Left scapholunate advanced collapsed similar to prior. 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 Healing intra-articular fracture at the base of the proximal phalanx with intra-articular extension. No change in alignment. Comminuted fracture deformity of the base of the long finger proximal phalanx with unchanged alignment. Comminuted intra-articular fracture of the base of the proximal phalanx index finger grossly unchanged, without change in alignment. Intra- articular fracture of the base of the proximal phalanx small finger. Fractures of the terrell of the distal phalanges long and ring fingers unchanged. Associated dense calcifications at the index finger distal phalanx unchanged. Disuse osteopenia. Narrative 12/08/2024 11:48 AM CDT EXAM: DX HAND LEFT 3+ VIEWS Procedure Note Bridger Lizarraga M.D. - 12/08/2024 EXAM: DX HAND LEFT 3+ VIEWS IMPRESSION: Comparison 11/24/2024. Reduced and internally fixated distal left radialfracture appears healed. Left scapholunate advanced collapsed similar toprior. 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 Healing intra-articular fracture at the base of the proximal phalanx withintra-articular extension. No change in alignment. Comminuted fracture deformity of the base of the long finger proximalphalanx with unchanged alignment. Comminuted intra-articular fracture ofthe base of the proximal phalanx index finger grossly unchanged, withoutchange in alignment. Intra- articular fracture of the base of the proximal phalanx small finger. Fractures ofthe terrell of the distal phalanges long and ring fingers unchanged.Associated dense calcifications at the index finger distal phalanxunchanged. Disuse osteopenia. Saba Rogers P.A.-C. [facility]ED[facility] Final Result documented in this encounter Visit Diagnoses Diagnosis Fracture Hand Multiple Closed Initial Left Fracture Wrist Closed Initial Right documented in this encounter Additional Health Concerns Assessment Noted Time PHQ-9 Depression Total Score: 11 10/23/2 025 6:47 AM CDT documented as of this encounter Care Teams Director Of Securities And Real Estate Relationship Specialty Start Date End Date Silvia Robison M.D. [address], [place] [phone] PCP - General Family Medicine 10/03/23 documented as of this encounter
--- OUTSIDE RECORDS SUMMARY | 2024-12-27 00:30 | XMS_ITS | Encounter Summary ---
Author Organization [facility] Address [address] [place] [address] Care Team Providers Care Splitting Machine Operator Name Role Phone Silvia Robison M.D. Primary Care Provider Reason for Visit * Reason Comments Sinus Problem Encounter Details Date Type Department Care Team (Late st Contact Info) Description 12/27/2024 12:30 AM CDT Telemedicine [facility] at [facility] [address] [place] [address] Padmini Barrera M.D. [address] [place] [address] Acute Recurrent Ethmoidal Sinusitis (Primary Dx) Social History Tobacco Use Types Packs/Day Years [...] you didn't have money to get more. Sometimes true 07/2024 PRAPARE - Transportation Answer Date Re corded In the past 12 months, has l ack of transportation kept you from medical appointments or from getting medications? No 07/2024 In the past 12 months, has l ack of transportation kept you from meetings, work, or from getting things needed for daily living? No 12/24/2024 [facility] Utilities Answer Date Recorded In the past 12 months has [employer], gas, oil, or water [employer] threatened to shut off services in your home? Patient declined 12/24/2024 Depression Answer Date Recor ded PHQ-9 Total Score (max 27) 11 10/23 Housing Stability Answer Date Recorded What is your living situatio n today? I do not have a steady place to live (I am temporarily staying with others, in a hotel, in a [place] [facility] [place], living outside on the street, on a beach, in a car, abandoned building, bus or train station, or in a park) 12/24/2024 Education Answer Date Recorded What is the highest level of school you have completed or the highest degree you have received? 12th grade 05/19/2019 Sex and Gender Information Value Date Recorded Sex Assigned at Male 08/16/2019 8:50 PM CDT Legal Sex Male 8:09 PM CDT Gender Identity Male 05/21/2020 12:19 PM RECORD LIBRARIAN Sexual Orientation Straight 07/10/2017 5: 27 PM CDT documented as of this encounter Patient Instructions * Attachments The following attachments cannot be sent through Care Everywhere. * Acute Sinusitis documented in this encounter Progress Notes * Padmini Barrera M.D. - 12/27/2024 12:30 AM CDT SUBJECTIVE Consult conducted via real-time audio/video technology by Padmini Barrera M.D. working in the [facility] location to the patient's home. Chief Complaint Patient presents with Sinus Problem HISTORY OF PRESENT ILLNESS The patient is 54 yo male who presented with c/o sinus congestion, ear pressure and facial congestions x 2-3 weeks, with worsening symptoms in the past 3 days. Has tried multiple OTC medications without relief. One other sinus infection in 2024 in October treated with Augmentin with complete resolution of symptoms. Medical History[1] Current Medications[2] REVIEW OF SYSTEMS All systems reviewed with pertinent positives/negatives documented above in HPI; all other review of systems negative. OBJECTIVE Physical Exam General: AAO x 3. Appears well-developed and well-nourished. Pulmonary: Effort appears normal. Does not appear to be in acute respiratory distress. Speaking in complete sentences. Skin: Appears to be intact and dry with no rash, erythema or lesions. Psychiatric: Normal mood and affect. Behavior is normal. Judgement and thought content are normal. ASSESSMENT / PLAN #1 Acute Recurrent Ethmoidal Sinusitis - amoxicillin-pot clavulanate (Augmentin) 875-125 mg per tablet; Take 1 tablet by mouth 2 (two) times a day for 7 days., Starting 12/27/2024, Until 01/03/2025, Normal -- 2nd infection in 2024 ---> discussed the need for ENT consultation -- Rx for Augmentin BID x 7 days ---> flu with PCP if symptoms do not resolve -- OTC supportive care with antihistamines and NSAIDS/APAP discussed We have discussed supportive care, return precautions, and symptoms that would prompt more urgent evaluation. All questions answered to the patient's satisfaction. Confirmed patient's allergies and discussed the benefits and risks of today's treatment plan, including side effects of medications and/or ordered procedures. The patient was instructed on the follow up plan, return symptoms were reviewed, how to contact for questions was discussed, and the patient was advised of the limitations of video and the possible need for in person visit with worsening symptoms. Patient verbalized understanding and agrees with the plan. Denies any additional questions at this time. Health Maintenance Topic Date Due Colorectal Cancer Screening Never done Hepatitis C Screening Never done Lung Cancer Screening Never done Diabetic Office Visit with Foot Exam 05/17/2023 Diabetic Eye Exam 07/08/2024 Zoster Vaccines (2 of 2) 08/10/2024 COVID-19 Vaccine (3 - season) 2024 Influenza Vaccine (1) Never done Hemoglobin A1C 03/15/2025 Depression Monitoring (PHQ-9) 02/23/2025 Office Visit for Blood Pressure Check / Re-check 06/15/2025 Visit: Chronic Disease, age 18+ 06/15/2025 Urine Albumin 06/15/2025 Creatinine Level (Kidney Function Test) 11/09/2025 Potassium Level 11/09/2025 Sodium Level 11/09/2025 Lipid (Cholesterol) Screening 12/18/2028 DTaP,Tdap,and Td Vaccines (3 - Td or Tdap) 11/09/2034 Depression Monitoring (PHQ-9 for quality tracking) Completed Pneumococcal vaccine (50+ years) Completed Hepatitis B Vaccines Completed IPV Vaccines Aged Out [1] Past Medical History: Diagnosis Date Amblyopia Bilateral Amblyopia Left Eye 05/24/2021 Carpal Tunnel Syndrome Left 06/18/2017 S/p release in 2018 Diabetes Mellitus NOS Gastroesophageal Reflux Disease NOS Gout Hyperlipidemia Hypertension NOS Nephrolithiasis 07/15/2019 Added automatically from request for surgery [id number] Other Injury Of Unspecified Body Region 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 Take 2 tablets every 6 hours. acetaminophen (TylenoL) 500 mg tablet Take 2 tablets (1,000 mg total) by mouth every 6 (six) hours as needed for pain, fever, mild pain or score 1-3 of 10 or headaches. for pain; Can purchase over the counter; Maximum acetaminophen should not exceed 4,000 mg in 24 hours from all sources. allopurinoL (Zyloprim) 100 mg tablet Take 1 tablet by mouth twice daily 180 tablet 3 amLODIPine (Norvasc) 10 mg tablet Take 1 tablet by mouth once daily 90 tablet 3 amoxicillin-pot clavulanate (Augmentin) 875-125 mg per tablet Take 1 tablet by mouth 2 (two) times a day for 7 days. 14 tablet 0 atorvastatin (Lipitor) 20 mg tablet Take 1 tablet by mouth once daily 90 tablet 3 blood sugar diagnostic strips 2 test daily. 200 test 3 blood-glucose meter [facility] Test as directed for diabetes control. 1 each 0 buPROPion XL (Wellbutrin XL) 150 mg 24 hr tablet Take 1 tablet (150 mg total) by mouth every morning. Needs an appointment for further refills 90 tablet 0 cloNIDine (Catapres) 0.1 mg tablet Take 1 tablet by mouth twice daily 180 tablet 3 gabapentin (Neurontin) 300 mg capsule Take 1 capsule in the morning, 2 capsules in the afternoon and 3 at bedtime 180 capsule 11 Jardiance 25 mg tablet TAKE 1 TABLET BY MOUTH ONCE DAILY BEFORE MEAL(S) IN THE MORNING 90 tablet 0 labetaloL 200 mg tablet Take 1 tablet by mouth twice daily 180 tablet 3 lisinopriL 40 mg tablet Take 1 tablet by mouth once daily 90 tablet 3 meloxicam (Mobic) 15 mg tablet Take 1 tablet (15 mg total) by mouth daily. 90 tablet 3 metFORMIN XR (Glucophage-XR) 500 mg 24 hr tablet Take 2 tablets by mouth twice daily 360 tablet 0 ondansetron ODT (Zofran-ODT) 4 mg disintegrating tablet Dissolve 1 tablet (4 mg total) in the mouthevery 6 (six) hours as needed for nausea or vomiting. 6 tablet 0 oxyCODONE (Roxicodone) 5 mg immediate release tablet Take 1 tablet (5 mg total) by mouth every 6 (six) hours as needed for pain Indication: Acute Pain. 5 tablet 0 pantoprazole (Protonix) 40 mg EC tablet Take 1 tablet (40 mg total) by mouth 2 (two) times a day before morning and evening meals. 180 tablet 3 semaglutide (Ozempic) 0.25 mg or 0.5 mg (2 mg/3 mL) injection Inject 0.5 mg under the skin every 7 (seven) days. 9 mL 3 Semglee,insulin glargine-yfgn, 100 unit/mL vial Inject 42 Units under the skin daily. Take once daily in the morning. Dose adjust as directed sennosides (Senokot) 8.6 mg tablet Take 1 tablet (8.6 mg total) by mouth 2 (two) times a day. Continue taking daily until no longer requiring prescription pain medications sildenafiL (Viagra) 100 mg tablet Take 1 tablet (100 mg total) by mouth daily as needed for erectile dysfunction. 10 tablet 1 sodium chloride (SALINE NASAL MIST NASAL) Administer into nostril(s) daily as needed. For nasal congestion traMADoL (Ultram) 50 mg tablet Indications: Acute Pain. 1 tab every 6 hours as needed for pain 6 tablet 0 No current facility-administered medications for this visit. documented in this encounter Plan of Treatment Upcoming Encounters Date Type Department Care Team (Latest Contact Info) Description 01/29/2025 2:00 PM CDT Comprehensive Visit Department of Physical Medicine and Rehabilitation in [address] [address] Ashli Kincaid APRN, C.N.P., M.S.N. [address] [place] [phone] Imtiaz Barker M.S., P.T., D.P.T. [address] [place] [phone] 02/02/2025 10:00 AM CDT Clinical Support Department of Physical Medicine and Rehabilitation in [place], [place] [address] [place] [phone] Alexys Mensah M.B.B.S. [address] [place] [address] [phone] Linda Parra C.HLavonne., O.T. [address] [place] [phone] 02/03/2025 2:00 PM CDT Clinical Support Department of Physical Medicine and Rehabilitation in [address] [address] Ashli Kincaid APRN, C.N.P., M.S.N. [address] [place] [phone] Imtiaz Barker M.Mala., P.T., D.P.T. [address] [place] [address] [phone] 02/09/2025 4:00 PM CDT Comprehensive Visit Department of Physical Medicine and Rehabilitation in [place], [place] [address] [place] [address] Ashli Kincaid APRN, C.N.P., M.S.N. [address] [place] [phone] Julián Luz M.A., O.T. [address] [place] [phone] 02/22/2025 10:00 AM RECORD LIBRARIAN Clinical Support Department of Physical Medicine and Rehabilitation in [place], [place] [address] [place] [phone] Ashli Kincaid APRN, C.N.P., M.S.N. [address] [place] [phone] Julián Luz, M.A., O.T. [address] [place] [phone] 03/15/2025 10:00 AM RECORD LIBRARIAN Appointment Department of Radiology, [facility], in [place], [place] [address] [place] [phone] Renee Lassiter M.D. [address] [place] [phone] Discharge Disposition: Home or Self Care 03/15/2025 10:30 AM RECORD LIBRARIAN Office Visit Department of Orthopedic Surgery in [place], [place] [address] [place] [phone] Alexys Mensah M.B.B.S. [address] [place] [phone] 03/15/2025 11:00 AM RECORD LIBRARIAN Clinical Support Department of Physical Medicine and Rehabilitation in [place], [place] [address] [place] [phone] Alexys Mensah M.B.B.S. [address] [place] [phone] Carlos Perez C.H.T., O.T. [address] [place] [phone] 03/15/2025 1:00 PM RECORD LIBRARIAN Office Visit Section of Preventive, Transportation and Occupational Medicine in [place], [place] [address] [place] [phone] Ashli Kincaid APRN, C.N.P., M.S.N. [address] [place] [phone] documented as of this encounter Visit Diagnoses Diagnosis Acute Recurrent Ethmoidal Sinusitis- Primary documented in this encounter Additional Health Concerns Assessment Noted Time PHQ-9 Depression Total Score: 11 025 6:47 AM CDT documented as of this encounter Care Teams Splitting Machine Operator Relationship Specialty Start Date End Date Silvia Rboison M.D. [address] [place] [phone] PCP - General Family Medicine 10/03/23 documented as of this encounter
--- OUTSIDE RECORDS SUMMARY | 2025-01-07 10:00 | XMS_ITS | Encounter Summary ---
Author Organization [facility] Address [address] [place] [address] Care Team Providers Care Cable Reeler Name Role Phone Silvia Robison M.D. Primary Care Provider Reason for Visit * Appointment Request (Routine) - Authorized Specialty Diagnoses / Procedures Referred By Franky zeng Referred To Contact Orthopedic Surgery Referral ID Status Reason Start Date Expiration Date V isits Requested Visits Authorized [id number] Authorized 12/08/2024 03/10/2026 1 1 Encounter Details Date Type Department Care Team (Latest Contact Info) Description 01/07/2025 10:00 AM CDT Clinical Communication Virtual Review in [place], [place] [address] [place] [phone] Social History Tobacco Use Types Packs/Day Years [...] things needed for daily living? No 12/24/2024 [facility] Utilities Answer Date Recorded In the past 12 months has [employer], gas, oil, or water [employer] threatened to shut off services in your home? Patient declined 12/24/2024 Depression Answer Date Recor ded PHQ-9 Total Score (max 27) 11 10/23 Housing Stability Answer Date Recorded What is your living situatio n today? I do not have a steady place to live (I am temporarily staying with others, in a hotel, in a [facility]p, living outside on the street, on a [...] CDT Gender Identity Male 05/21/2020 12:19 PM LAND LEASING EXAMINER Sexual Orientation Straight 07/10/2017 5: 27 PM CDT documented as of this encounter Plan of Treatment Upcoming Encounters Date Type Department Care Team (Latest Contact Info) Description 01/29/2025 2:00 PM CDT Comprehensive Visit Department of Physical Medicine and Rehabilitation in [place], [place] [address] [place] [address] Ashli Kincaid APRN, C.N.P., M.S.N. [address] [place] [phone] Imtiaz Barker M.S., P.T., D.P.T. [address] [place] [phone] 02/02/2025 10:00 AM CDT Clinical Support Department of Physical Medicine and Rehabilitation in [place], [place] [address] [place] [phone] Alexys Mensah M.B.B.S. [address] [place] [phone] Linda Parra C.HLavonne., O.T. [address] [place] [phone] 02/03/2025 2:00 PM CDT Clinical Support Department of Physical Medicine and Rehabilitation in [place], [place] [address] [place] [phone] Ashli Kincaid APRN, C.N.P., M.S.N. [address] [place] [phone] Imtiaz Barker M.S., P.T., D.P.T. [address] [place] [phone] 02/09/2025 4:00 PM CDT Comprehensive Visit Department of Physical Medicine and Rehabilitation in [place], [place] [address] [place] [phone] Ashli Kincaid APRN, C.N.P., M.S.N. [address] [place] [phone] Julián Luz M.A., O.T. [address] [place] [phone] 02/22/2025 10:00 AM LAND LEASING EXAMINER Clinical Support Department of Physical Medicine and Rehabilitation in [place], [place] [address] [place], [place] [phone] Ashli Kincaid APRN, C.NMago., M.S.N. [address] [place] [phone] Julián Luz M.A., O.T. [address] [place] [phone] 03/15/2025 10:00 AM LAND LEASING EXAMINER Appointment Department of Radiology, [facility], in [place], [place] [address] [place] [phone] Renee Lassiter M.D. [address] [place] [phone] Discharge Disposition: Home or Self Care 03/15/2025 10:30 AM LAND LEASING EXAMINER Office Visit Department of Orthopedic Surgery in [place], [place] [address] [place] [phone] Alexys Mensah M.B.B.S. [address] [place] [phone] 03/15/2025 11:00 AM LAND LEASING EXAMINER Clinical Support Department of Physical Medicine and Rehabilitation in [place], [place] [address] [place] [phone] Alexys Mensah M.B.B.S. [address] [place] [phone] Carlos Perez C.HLavonne., O.T. [address] [place] [phone] 03/15/2025 1:00 PM LAND LEASING EXAMINER Office Visit Section of Preventive, Transportation and Occupational Medicine in [place], [place] [address] [place] [phone] Ashli Kincaid APRN, C.NSammP., M.S.N. [address] [place] [phone] documented as of this encounter Visit Diagnoses Not on filedocumented in this encounter Additional Health Concerns Assessment Noted Time PHQ-9 Depression Total Score: 11 025 6:47 AM CDT documented as of this encounter Care Teams Cable Reeler Relationship Specialty Start Date End Date Silvia Robison M.D. [address], [place] [phone] PCP - General Family Medicine 10/03/23 documented as of this encounter
--- OUTSIDE RECORDS SUMMARY | 2025-01-12 09:51 | XMS_ITS | Encounter Summary ---
Author Organization [facility] Address [address] [place] [address] Care Team Providers Care Coke Handling Supervisor Name Role Phone Silvia Robison M.D. Primary Care Provider Reason for Referral * Outpatient (Routine) - Closed Specialty Diagnoses / Procedures Referred By Franky zegn Referred To Contact Diagnoses Fracture Hand Multiple Closed Initial Left Procedures DX Hand Left 3+ Views Saba Rogers P.A.-C. [address] [place] [address] Phone: tel: fax: [facility] Referral ID Status Reason Start Date Expiration Date Visits Re quested Visits Authorized [id number] Closed 12/08/2024 03/10/2026 1 1 Reason for Visit * Outpatient (Routine) - Closed Specialty Diagnoses / Procedures Referred By Franky zeng Referred To Contact Diagnoses Fracture Hand Multiple Closed Initial Left Procedures DX Hand Left 3+ Views Saba Rogers P.A.-C. [address] [place] [address] Phone: tel: fax: [facility] Referral ID Status Reason Start Date Expiration Date Visits Re quested Visits Authorized [id number] Closed 12/08/2024 03/10/2026 1 1 Encounter Details Date Type Department Care Team (Latest Contact Info) Description 01/12/2025 9:51 AM CDT - 01/12/2025 11:59 PM CDT Hospital Encounter Department of Radiology, [facility], in [place], [place] [address] [place] [address] Saba Rogers P.A.-C. [address] [place] [address] Fracture Hand Multiple Closed Initial Left Discharge Disposition: Home or Self Care Social [...] things needed for daily living? 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 allopurinoL (Zyloprim) 100 mg tablet Take 1 tablet by mouth twice daily 180 tablet 3 5 amLODIPine (Norvasc) 10 mg tablet Take 1 tablet by mouth once daily 90 tablet 3 5 atorvastatin (Lipitor) 20 mg tablet Take 1 tablet by mouth once daily 90 tablet 3 5 blood-glucose meter misc Test as directed for diabetes control. 1 each 1 cloNIDine (Catapres) 0.1 mg tablet Take 1 tablet by mouth twice daily 180 tablet 3 5 gabapentin (Neurontin) 300 mg capsuleIndications: Neuropathy Take 1 capsule in the morning, 2 capsules in the afternoon and 3 at bedtime 180 capsule 11 5 insulin glargine (Lantus Solostar U-100 Insulin) 100 unit/mL (3 mL) penIndications:Diab etes Mellitus Type 2 Without Complication (HCC) Inject 42 Units under the skin at bedtime. Injected daily as directed. 37.8 mL 3 5 01/09/20 26 Jardiance 25 mg tabletIndications:D iabetes Mellitus Type [...] as needed for pain 6 tablet 5 buPROPion XL (Wellbutrin XL) 150 mg 24 hr tablet Take 1 tablet (150 mg total) by mouth every morning. Needs an appointment for further refills 90 tablet 5 01/19/20 25 documented as of this encounter Plan of Treatment Upcoming Encounters Date Type Department Care Team (Latest Contact Info) Description 01/29/2025 2:00 PM CDT Comprehensive Visit Department of Physical Medicine and Rehabilitation in [address] [phone] Ashli Kincaid APRN, C.NHeather, M.S.N. [address] [place] [phone] Imtiaz Barker M.S., P.T., D.P.T. [address] [place] [address] [phone] 02/02/2025 10:00 AM CDT Clinical Support Department of Physical Medicine and Rehabilitation in [place], [place] [address] [place] [phone] Alexys Mensah M.B.B.S. [address] [place] [address] [phone] Linda Parra C.HLavonne., O.T. [address] [place] [address] [phone] 02/03/2025 2:00 PM CDT Clinical Support Department of Physical Medicine and Rehabilitation in [address] [address] Ashli Kincaid APRN, C.NHeather, M.S.N. [address] [place] [phone] Imtiaz Barker M.S., P.T., D.P.T. [address] [place] [address] [phone] 02/09/2025 4:00 PM CDT Comprehensive Visit Department of Physical Medicine and Rehabilitation in [address] [address] Ashli Kincaid APRN, C.N.Andrew, M.S.N. [address] [place] [phone] Julián Luz M.A., O.T. [address] [place] [phone] 02/22/2025 10:00 AM CUTTER DOWN Clinical Support Department of Physical Medicine and Rehabilitation in [address] [address] Ashli Kincaid APRN, C.NMago., M.S.N. [address] [place] [phone] Julián Luz M.A., O.T. [address] [place] [phone] 03/15/2025 10:00 AM CUTTER DOWN Appointment Department of Radiology, [facility], in [place], [place] [address] [place] [phone] Renee Lassiter M.D. [address] [place] [phone] Discharge Disposition: Home or Self Care 03/15/2025 10:30 AM CUTTER DOWN Office Visit Department of Orthopedic Surgery in [place], [place] [address] [place] [phone] Alexys Mensah M.B.B.S. [address] [place] [phone] 03/15/2025 11:00 AM CUTTER DOWN Clinical Support Department of Physical Medicine and Rehabilitation in [place], [place] [address] [place] [phone] Alexys Mensah M.B.B.S. [address] [place] [phone] Carlos Perez C.H.T., O.T. [address] [place] [phone] 03/15/2025 1:00 PM CUTTER DOWN Office Visit Section of Preventive, Transportation and Occupational Medicine in [place], [place] [address] [place] [phone] Ashli Kincaid, SUYAPA, C.N.P., M.S.N. [address] [place] [phone] documented as of this encounter Procedures Procedure Name Priority Date/Time Associated Diagnosis Comments DX HAND LEFT 3+ VIEWS RAD - Routine (most inpatients and all outpatients) 01/12/2025 10:05 AM CDT Fracture Hand Multiple Closed Initial Left documented in this encounter Results * DX Hand Left 3+ Views (01/12/2025 10:05 AM CDT) Anatomical Region Laterality Modality Upper Extremity, Hand, Muscu loskeletal RST LOS, Musculoskeletal ARZ LOS, Muskuloskeletal FLA LOS Left Digit al Radiography Impressions 01/12/2025 10:29 AM CDT Interval healing changes across the comminuted intra-articular fracture of the radial base of the left third metacarpal status post pin fixation. Additional healing changes across multiple left hand fractures including the base of the second and fifth finger proximal phalanges and the fourth metacarpal head. Comminuted fractures of the terrell of the distal phalanx of the third and fourth fingers are unchanged. Dense calcification about the fourth finger distal phalanx. Postoperative changes volar plate and screw fixation of the distal radius. No hardware failure. Demineralization. Narrative 01/12/2025 10:29 AM CDT EXAM: DX HAND LEFT 3+ VIEWS Procedure Note Mily Gamez M.D. - 01/12/2025 EXAM: DX HAND LEFT 3+ VIEWS IMPRESSION: Interval healing changes across the comminuted intra-articular fracture ofthe radial base of the left third metacarpal status post pin fixation. Additional healing changes across multiple left hand fractures includingthe base of the second and fifth finger proximal phalanges and the fourthmetacarpal head. Comminuted fractures of the terrell of the distal phalanxof the third and fourth fingers are unchanged. Dense calcification aboutthe fourth finger distal phalanx. Postoperative changes volar plate and screw fixation of the distal radius.No hardware failure. Demineralization. Saba Rogers P.A.-C. IMG DIAGNOSTIC IMAGING PROCEDURES Final Result documented in this encounter Visit Diagnoses Diagnosis Fracture Hand Multiple Closed Initial Left documented in this encounter Additional Health Concerns Assessment Noted Time PHQ-9 Depression Total Score: 11 10/23/ 025 6:47 AM CDT documented as of this encounter Care Teams Coke Handling Supervisor Relationship Specialty Start Date End Date Silvia Robison M.D. [address] [place] [phone] PCP - General Family Medicine 10/03/23 documented as of this encounter
--- OUTSIDE RECORDS SUMMARY | 2025-01-12 11:00 | XMS_ITS | Encounter Summary ---
Author Organization [facility] Address [address] [place] [address] Care Team Providers Care Architect In Training Name Role Phone Silvia Robison M.D. Primary Care Provider Reason for Referral * Outpatient (Routine) - Pending Review Specialty Diagnoses / Procedures Referred By Franky zeng Referred To Contact Occupational Medicine Diagnoses Fracture Middle Finger Proximal Phalanx Displaced Sequela Left Fracture Index Finger Proximal Phalanx Displaced Sequela Left Saba Rogers P.A.-C. [address] [place] [address] Phone: tel: fax: [facility] Referral ID Status Reason Start Date Expiration Date V isits Requested Visits Authorized [id number] Pending Review 01/12/2025 07/14/2026 1 1 * Physical Therapy (Routine) - Pending Review Specialty Diagnoses / Procedures Referred By Franky zeng Referred To Contact Diagnoses Fracture Middle Finger Proximal Phalanx Displaced Sequela Left Procedures PT or OT eval and treat (first available) Saba Rogers P.A.-C. [address] [place] [address] Phone: tel: fax: [facility] Referral ID Status Reason Start Date Expiration Date V isits Requested Visits Authorized [id number] Pending Review 01/12/2025 04/14/2026 1 1 * Outpatient (Routine) - Authorized Specialty Diagnoses / Procedures Referred By Contac t Referred To Contact Diagnoses Fracture Wrist And Hand Other Open Initial Left Procedures DX Hand Left 3+ Views Renee Lassiter M.D. [address] [place] [phone] Phone: tel: fax: [facility] Referral ID Status Reason Start Date Expiration Date V isits Requested Visits Authorized [id number] Authorized 01/12/2025 04/14/2026 1 1 * Outpatient (Routine) - Authorized Specialty Diagnoses / Procedures Referred By Contac t Referred To Contact Orthopedic Surgery Diagnoses dx Renee Lassiter M.D. [address] [place] [phone] Phone: tel: fax: Alexys Mensah M.B.B.S. [address] [place] [phone] Phone: tel: fax: Referral ID Status Reason Start Date Expiration Date V isits Requested Visits Authorized [id number] Authorized 01/12/2025 07/14/2026 1 1 Reason for Visit * Outpatient (Routine) - Closed Specialty Diagnoses / Procedures Referred By Contac t Referred To Contact Orthopedic Surgery Diagnoses dx Saba Rogers P.A.-C. [address] [place] [phone] Phone: tel: fax: Alexys Mensah M.B.B.S. [address] [place] [phone] Phone: tel: fax: Referral ID Status Reason Start Date Expiration Date Visits Re quested Visits Authorized [id number] Closed 12/08/2024 06/09/2026 1 1 Encounter Details Date Type Department Care Team (Late st Contact Info) Description 01/12/2025 11:00 AM CDT Office Visit Department of Orthopedic Surgery in [place], [place] [address] [place] [address] Alexys Mensah M.B.BSammS. [address] [place] [phone] Fracture Middle Finger Proximal Phalanx Displaced Sequela Left (Primary Dx); Fracture Wrist And Hand Other Open Initial Left; Fracture Index Finger Proximal Phalanx Displaced Sequela Left Social History Tobacco Use Types Packs/Day Years [...] things needed for daily living? No 12/24/2024 [facility] Utilities Answer Date Recorded In the past 12 months has [facility], gas, oil, or water [place] threatened to shut off services in your home? Patient declined 12/24/2024 Depression Answer Date Recor ded PHQ-9 Total Score (max 27) 11 10/23 Housing Stability Answer Date Recorded What is your living situatio n today? 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 - 01/12/2025 11:00 AM CDT Hand surgery progress note CC: R DRF and L hand multiple fractures 54 year old male presents for follow-up of right distal radius (nonop) and L hand fractures (CRPP of MF PP fracture on 11/10) as outlined below: - Comminuted mildly displaced and angulated intra-articular fractures of the IF, MF, and SF PP bases - Nondisplaced and slightly angulated extra-articular fracture of the IF through RF DP - Comminuted, impacted, and mildly displaced intra-articular fracture of the RF MC head/neck with mild shortening and palmar angulation - Thumb DP fracture, minimally displaced Last seen 12/08 at which time plan was to continue splinting, but ok to come out of splint to work on micromovements. Today, on review of XR and exam with Dr. Mensah we will proceed with pin removal of MF CRPP as this has had good healing. Other fractures appear to be healing though slower at the IF PP fracture. Has ongoing swelling and minimal ability to make composite fist. Given this and osteopenic appearance of bones, will have meet with hand therapy today with plans for MPJ blocking for ranging PIPJ. I removed pin at bedside. I performed local block with 1% lido withepi, made small incision with 11 blade over palpable K-wire, and used bus driver/monitor to gently remove buried pin. Pressure was applied to confirm hemostasis then bandaid placed. Asked patient to leave band-aid in place for 48 hours then okay to shower and let soapy water run over area. F/u in 2 months withrepeat XR. Plan: - L MF PP pin removed in clinic - Hand therapy for MPJ blocking and PIPJ and DIPJ ROM, continue splinting when not passive and active ROM - f/u 2 mo in clinic with XR ordered Patient seen with Dr. Mensah. documented in this encounter Procedure Notes * Renee Lassiter M.D. - 01/12/2025 11:00 AM CDT Procedures Local block of lido with epi, incision over pin with 11 blade, then removal of K-wire with needle bus driver/monitor. documented in this encounter Plan of Treatment Upcoming Encounters Date Type Department Care Team (Latest Contact Info) Description 01/29/2025 2:00 PM CDT Comprehensive Visit Department of Physical Medicine and Rehabilitation in [place], [place] [address] [address] Ashli Kincaid APRN, C.N.P., M.S.N. [address] [place] [phone] Imtiaz Barker M.S., P.T., D.P.T. [address] [place] [phone] 02/02/2025 10:00 AM CDT Clinical Support Department of Physical Medicine and Rehabilitation in [place], [place] [address] [place] [phone] Alexys Mensah M.B.B.S. [address] [place] [phone] Linda Parra C.H.T., O.T. [address] [place] [phone] 02/03/2025 2:00 PM CDT Clinical Support Department of Physical Medicine and Rehabilitation in [address] [phone] Ashli Kincaid APRN, C.NHeather, M.S.N. [address] [place] [phone] Imtiaz Barker M.S., P.T., D.P.T. [address] [place] [phone] 02/09/2025 4:00 PM CDT Comprehensive Visit Department of Physical Medicine and Rehabilitation in [address] [phone] Ashli Kincaid APRN, C.NHeather, M.S.N. [address] [place] [phone] Julián Luz MSammA., O.T. [address] [place] [phone] 02/22/2025 10:00 AM PIGMENT WEIGHER Clinical Support Department of Physical Medicine and Rehabilitation in [place], [place] [address] [place] [address] Ashli Kincaid APRN, C.N.P., M.S.N. [address] [place] [phone] Julián Luz M.A., O.T. [address] [place] [phone] 03/15/2025 10:00 AM PIGMENT WEIGHER Appointment Department of Radiology, [facility], in [place], [place] [address] [place] [phone] Renee Lassiter M.D. [address] [place] [phone] Discharge Disposition: Home or Self Care 03/15/2025 10:30 AM PIGMENT WEIGHER Office Visit Department of Orthopedic Surgery in [place], [place] [address] [place] [phone] Alexys Mensah M.B.B.S. [address] [place] [phone] 03/15/2025 11:00 AM PIGMENT WEIGHER Clinical Support Department of Physical Medicine and Rehabilitation in [place], [place] [address] [place] [phone] Alexys Mensah M.B.B.S. [address] [place] [phone] Carlos Perez C.H.T., O.T. [address] [place] [phone] 03/15/2025 1:00 PM PIGMENT WEIGHER Office Visit Section of Preventive, Transportation and Occupational Medicine in [place], [place] [address] [place] [address] Ashli Kincaid APRN, C.N.P., M.S.N. [address] [place] [address] Scheduled Orders Name Type Priority Associated Diagnoses Orde r Schedule DX Hand Left 3+ Views Imaging RAD - Routine (most inpatients and all outpatients) Fracture Wrist And Hand Other Open Initial Left Expected: 03/15/2025, Expires: 04/13/2026 Scheduled Referrals Name Type Priority Associated Diagnoses Order Schedule Orthopedic Surgery office visit (clinic) Outpatient Referral Routine Expect ed: 03/15/2025, Expires: 04/13/2026 Occupational Medicine - Workers Compensation consult (clinic) Outpatient Referral Routine Fracture Middle Finger Proximal Phalanx Displaced Sequela Left Fracture Index Finger Proximal Phalanx Displaced Sequela Left Expected: 01/12/2025, Expires: 04/13/2026 documented as of this encounter Visit Diagnoses Diagnosis Fracture Middle Finger Proximal Phalanx Displaced Sequela Left- Primary Fracture Wrist And Hand Other Open Initial Left Fracture Index Finger Proximal Phalanx Displaced Sequela Left documented in this encounter Additional Health Concerns Assessment Noted Time PHQ-9 Depression Total Score: 11 025 6:47 AM CDT documented as of this encounter Care Teams Architect In Training Relationship Specialty Start Date End Date Silvia Robison M.D. [address] [place] [phone] PCP - General Family Medicine 10/03/23 documented as of this encounter
--- OUTSIDE RECORDS SUMMARY | 2025-01-12 11:45 | XMS_ITS | Encounter Summary ---
[facility] Address [address] [place] [address] Care Team Providers Care Area Field Manager Name Role Phone Silvia Robison M.D. Primary Care Provider Reason for Referral * Physical Therapy (Routine) - Pending Review Specialty Diagnoses / Procedures Referred By Franky zeng Referred To Contact Diagnoses Fracture Middle Finger Proximal Phalanx Displaced Sequela Left Procedures PT Ongoing treatment Alexys Mensah M.B.B.S. [address] [place] [address] Phone: tel: fax: [facility] Referral ID Status Reason Start Date Expiration Date V isits Requested Visits Authorized [id number] Pending Review 01/12/2025 04/14/2026 5 5 * Occupational Therapy (Routine) - Pending Review Specialty Diagnoses / Procedures Referred By Franky zeng Referred To Contact Diagnoses Fracture Middle Finger Proximal Phalanx Displaced Sequela Left Procedures OT Ongoing Treatment Alexys Mensah M.B.B.S. [address] [place] [address] Phone: tel: fax: [facility] Referral ID Status Reason Start Date Expiration Date V isits Requested Visits Authorized [id number] Pending Review 01/12/2025 04/14/2026 20 20 Reason for Visit * Physical Therapy (Routine) - Pending Review Specialty Diagnoses / Procedures Referred By Franky t Referred To Contact Diagnoses Fracture Middle Finger Proximal Phalanx Displaced Sequela Left Procedures PT or OT eval and treat (first available) Saba Rogers P.A.-C. [address] [place] [phone] Phone: tel: fax: [facility] Referral ID Status Reason Start Date Expiration Date V isits Requested Visits Authorized [id number] Pending Review 01/12/2025 04/14/2026 1 1 Encounter Details Date Type Department Care Team (Latest Contact Info) Description 01/12/2025 11:45 AM CDT Comprehensive Visit Department of Physical Medicine and Rehabilitation in [place], [place] [address] [place] [phone] Saba Rogers P.A.-C. [address] [place] [phone] La Quinn M.S., O.T. [address] [place] [phone] Fracture Middle Finger Proximal Phalanx Displaced Sequela [...] things needed for daily living? No 12/24/2024 [facility] Utilities Answer Date Recorded In the past 12 months has [employer], gas, oil, or water [employer] threatened to shut off services in your home? Patient declined 12/24/2024 Depression Answer Date Recor ded PHQ-9 Total Score (max 27) 11 10/23 Housing Stability Answer Date Recorded What is your living situatio n today? 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 Current functional limitations include: The patient [...] to continue with intrinsic plus resting orthosis packer, removing for hygiene and therapy exercises for [...] at this time. He will wear this packer with the exception of hygiene and therapy [...] Impairment History of falls [facility]ational risk factors [facility] Hand Therapy Occupational Therapy Profile Review: [...] extremity with nodifficulty. Date 04/20/25. 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 [address] [place] [phone] Imtiaz Barker M.S., P.T., D.P.T. [address] [place] [phone] 02/02/2025 10:00 AM CDT Clinical Support Department of Physical Medicine and Rehabilitation in [place], [place] [address] [place] [phone] Alexys Mensah M.B.B.S. [address] [place] [phone] Linda Parra C.H.T., O.T. [address] [place] [phone] 02/03/2025 2:00 PM CDT Clinical Support Department of Physical Medicine and Rehabilitation in [place], [place] [address] [place] [phone] Ashli Kincaid APRN, C.N.P., M.S.N. [address] [place] [phone] Imtiaz Barker M.S., P.T., D.P.T. [address] [place] [phone] 02/09/2025 4:00 PM CDT Comprehensive Visit Department of Physical Medicine and Rehabilitation in [address] [address] Ashli Kincaid APRN, C.N.P., M.S.N. [address] [place] [phone] Julián Luz M.A., O.T. [address] [place] [phone] 02/22/2025 10:00 AM DINING ROOM MAID Clinical Support Department of Physical Medicine and Rehabilitation in [address] [address] Ashli Kincaid APRN, C.N.P., M.S.N. [address] [place] [phone] Julián Luz M.A., O.T. [address] [place] [phone] 03/15/2025 10:00 AM DINING ROOM MAID Appointment Department of Radiology, [facility], in [place], [place] [address] [place] [phone] Renee Lassiter M.D. [address] [place] [phone] Discharge Disposition: Home or Self Care 03/15/2025 10:30 AM DINING ROOM MAID Office Visit Department of Orthopedic Surgery in [place], [place] [address] [place] [phone] Alexys Mensah M.B.B.S. [address] [place] [phone] 03/15/2025 11:00 AM DINING ROOM MAID Clinical Support Department of Physical Medicine and Rehabilitation in [place], [place] [address] [place] [phone] Alexys Mensah M.B.B.S. [address] [place] [phone] Carlos Perez C.H.T., O.T. [address] [place] [phone] 03/15/2025 1:00 PM DINING ROOM MAID Office Visit Section of Preventive, Transportation and Occupational Medicine in [place], [place] [address] [place] [phone] Ashli Kincaid APRN, C.NSammP., M.S.N. [address] [place] [phone] documented as of this encounter Visit Diagnoses Diagnosis Fracture Middle Finger Proximal Phalanx Displaced Sequela Left- Primary documented in this encounter Additional Health Concerns Assessment Noted Time PHQ-9 Depression Total Score: 11 025 6:47 AM CDT documented as of this encounter Care Teams Area Field Manager Relationship Specialty Start Date End Date Silvia Robison M.D. [address] [phone] PCP - General Family Medicine 10/03/23 documented as of this encounter
--- OUTSIDE RECORDS SUMMARY | 2025-01-12 13:30 | XMS_ITS | Encounter Summary ---
Author Organization [facility] Address [address] [place] [address] Care Team Providers Care Bucket Chucker Name Role Phone Silvia Robison M.D. Primary Care Provider Reason for Referral * Outpatient (Routine) - Pending Review Specialty Diagnoses / Procedures Referred By Franky zeng Referred To Contact Preventive Medicine Diagnoses Fracture Middle Finger Proximal Phalanx Displaced Sequela Left Fracture Hand Multiple Closed Initial Left Fracture Wrist And Hand Other Open Initial Left Fracture Index Finger Proximal Phalanx Displaced Sequela Left Pain Wrist Right Fracture Wrist Closed Initial Right Limitation Of Motion Finger Left Return To Work Status Examination Ashli Kincaid APRN C.N.P., M.S.N. [address] [place] [address] Phone: tel: fax: [facility] Referral ID Status Reason Start Date Expiration Date V isits Requested Visits Authorized [id number] Pending Review 01/12/2025 07/14/2026 1 1 Scheduling Instructions With Ashli. Edgaray to override anything through 4:00 pm. * Occupational Therapy (Routine) - Pending Review Specialty Diagnoses / Procedures Referred By Franky zeng Referred To Contact Diagnoses Fracture Middle Finger Proximal Phalanx Displaced Sequela Left Fracture Hand Multiple Closed Initial Left Fracture Wrist And Hand Other Open Initial Left Fracture Index Finger Proximal Phalanx Displaced Sequela Left Pain Wrist Right Fracture Wrist Closed Initial Right Limitation Of Motion Finger Left Return To Work Status Examination Procedures OT Evaluate and treat Ashli Kincaid APRN, C.N.P., M.S.N. [address] [place] [phone] Phone: tel: fax: [facility] Referral ID Status Reason Start Date Expiration Date V isits Requested Visits Authorized [id number] Pending Review 01/12/2025 04/14/2026 1 1 * Physical Therapy (Routine) - Pending Review Specialty Diagnoses / Procedures Referred By Franky zeng Referred To Contact Diagnoses Fracture Middle Finger Proximal Phalanx Displaced Sequela Left Fracture Hand Multiple Closed Initial Left Fracture Wrist And Hand Other Open Initial Left Fracture Index Finger Proximal Phalanx Displaced Sequela Left Pain Wrist Right Fracture Wrist Closed Initial Right Limitation Of Motion Finger Left Return To Work Status Examination Procedures PT Evaluate and treat Ashli Kincaid APRN, C.N.P., M.S.N. [address] [place] [phone] Phone: tel: fax: [facility] Referral ID Status Reason Start Date Expiration Date V isits Requested Visits Authorized [id number] Pending Review 01/12/2025 04/14/2026 1 1 Reason for Visit * Outpatient (Routine) - Pending Review Specialty Diagnoses / Procedures Referred By Franky zeng Referred To Contact Occupational Medicine Diagnoses Fracture Middle Finger Proximal Phalanx Displaced Sequela Left Fracture Index Finger Proximal Phalanx Displaced Sequela Left Saba Rogers P.A.-C. [address] [place] [phone] Phone: tel: fax: [facility] Referral ID Status Reason Start Date Expiration Date V isits Requested Visits Authorized [id number] Pending Review 01/12/2025 07/14/2026 1 1 Encounter Details Date Type Department Care Team (Latest Contact Info) Description 01/12/2025 1:30 PM CDT Comprehensive Visit Section of Preventive, Transportation and Occupational Medicine in [place], [place] [address] [place] [address] Ashli Kincaid, SUYAPA, C.N.P., M.S.N. [address] [place] [phone] Fracture Hand Multiple Closed Initial Left (Primary Dx); Fracture Middle Finger Proximal Phalanx Displaced Sequela Left; Limitation Of Motion Finger Left; Fracture Wrist Closed Initial Right; Pain Wrist Right; Return To Work Status Examination; Injury Shoulder Subsequent Right; Injury Knee Subsequent Right; Injury Ankle Subsequent Right Social History Tobacco Use Types Packs/Day Years [...] things needed for daily living? No 12/24/2024 [facility] Utilities Answer Date Recorded In the past 12 months has [facility] [employer], gas, oil, or water [employer] threatened to shut off services in your home? Patient declined 12/24/2024 Depression Answer Date Recor ded PHQ-9 Total Score (max 27) 11 10/23 Housing Stability Answer Date Recorded What is your living situatio n today? I do not have a steady place to live (I am temporarily staying with others, in a hotel, in a prison, living outside on the street, on a [...] CDT Gender Identity Male 05/21/2020 12:19 PM [employer]PERVIS[employer] Sexual Orientation Straight 07/10/2017 5: 27 PM CDT documented as of this encounter Consult Notes * Ashli Kincaid APRN, C.N.P., M.S.N. - 01/12/2025 1:30 PM CDT Images from the original note were not included. Employer: [employer] Date of Injury/Illness: November 09, 2024 This is a work related injury. SUBJECTIVE History of Present Illness Mr. Kirk Carter Jr. is a 54 year old male who presents for a workability consultation following a work-related injury. He was referred by Saba Rogers P.A.-C. for impairment rating, return to work. Also present today is [employer] [facility] [employer] [facility]. On November 09, 2024, he sustained a work-related injury on his first day at [employer], resulting in multiple fractures in his left hand and a fracture in his right wrist. He underwent surgery on November 10, 2024, for pinning of the left middle finger proximal phalanx and has been receiving ongoing treatment and physical therapy. He sustained fractures in all five fingers of his left hand, including an open fracture of the leftthumb IP joint, and fractures of the left second digit proximal phalanx, left third digit proximal and distal phalanx, left fourth digit distal phalanx, left fourth metacarpal, and left fifth digit proximal phalanx. The left middle finger required surgical pinning. He also lost the fingernail on his left ring finger. The bones in the fingers are described as 'crushed,' with significant swelling and limited mobility, particularly in the middle and ring fingers. His right wrist sustained a nondisplaced fracture of the dorsal distal radius, which was initially braced and did not require surgery. He reports ongoing pain and difficulty with lifting and certain movements. He also experienced a contusion on his right shoulder, a twisted right knee, and a twisted right ankle during the fall. His knee and ankle have returned to baseline with no issues, and his shoulder has full range of motion despite a residual contusion. He is currently unable to perform many daily tasks independently, such as opening jars, tying shoes, or buttoning clothes, and relies on his for assistance. He wears a compression glove to his left hand to manage swelling and a brace to stabilize his left hand. He is undergoing hand therapy, which is expected to continue for several weeks. 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 He is currently receiving work comp insurance but notes a significant decrease in income compared to his previous earnings. He is eager to return to work and is exploring options for modified duties or alternative employment until he fully recovers. REVIEW OF SYSTEMS Pertinent ROS included in HPI. OBJECTIVE Physical Exam: Constitutional General: He is not in acute distress. Pulmonary Effort: Pulmonary effort is normal. No respiratory distress. Musculoskeletal Right wrist: Tenderness present. Left hand: Swelling and tenderness present. Decreased range of motion. Decreased strength. Decreased sensation. Comments: Right wrist pain with 1 lb weighted active ROM. Left wrist and hand orthosis applied to left upper extremity. Removed for exam with noted swelling and poor active ROM of left fingers (measurements as measured by hand therapy this morning are noted below). Neurological Mental Status: He is alert and oriented to person, place, and time. Gait: Gait normal. Psychiatric Mood and Affect: Mood normal. Behavior: Behavior normal. Thought Content: Thought content normal. Judgment: Judgment normal. Active Range of Motion of Left Fingers (01/12/2025): Index MCP: 0-65 degrees Index PIP: 20-45 degrees Index DIP: 15-32 degrees Long MCP: 28-52 degrees Long PIP: 28-30 degrees Long DIP: 30-35 degrees Ring MCP: 27-40 degrees Ring PIP: 36-50 degrees Ring DIP: no motion noted Small MCP: 0-42 degrees Small PIP: 30-53 degrees Small DIP: 30-45 degrees Wrist Flexion: 0-45 degrees Wrist Extension: 0-50 degrees DX Hand Left 3+ Views: IMPRESSION: Interval healing changes across the comminuted intra-articular fracture of the radial base of the left third metacarpal status post pin fixation. Additional healing changes across multiple left hand fractures including the base of the second and fifth finger proximal phalanges and the fo urth metacarpal head. Comminuted fractures of the terrell of the distal phalanx of the third and fourth fingers are unchanged. Dense calcification about the fourth finger distal phalanx. Postoperative changes volar plate and screw fixation of the distal radius. No hardware failure. Demineralization. ASSESSMENT / PLAN Assessment & Plan #1 Fracture Hand Multiple Closed Initial Left #2 Fracture Middle Finger Proximal Phalanx Displaced Sequela Left #3 Limitation Of Motion Finger Left He sustained fractures in all five fingers of his left hand, including an open fracture of the leftthumb IP joint, and fractures of the left second digit proximal phalanx, left third digit proximal and distal phalanx, left fourth digit distal phalanx, left fourth metacarpal, and left fifth digit proximal phalanx. Status post pinning of the left middle finger proximal phalanx (11/10/2024) and pinremoval (01/12/2025). Undergoing hand therapy. He has a left forearm based resting orthosis in intrinsic plus positioning that he is to wear time recorder with the exception of hygiene and therapy exercises through February 02. - Continue compression glove for swelling. - Continue hand therapy. - Follow up with [facility] on March 15, 2025. - MMI: No. PPD: Too early to determine. #4 Fracture Wrist Closed Initial Right #5 Pain Wrist Right Nondisplaced fracture of the dorsal distal radius, initially braced and did not require surgery. Ongoing pain and difficulty with lifting and performing functional activities at home. - Continue wearing brace during rest or swelling. - Refer to PT/OT Early Occupational Restorative Program (EORP) at the [facility] - Lifting restriction: 5 pounds maximum, 1-2 lb occasionally. - MMI: No. PPD: Too early to determine. #6 Injury Shoulder Subsequent Right #7 Injury Knee Subsequent Right #8 Injury Ankle Subsequent Right Right shoulder, right knee, and right ankle injuries are much improved since date of injury. Full ROM to all joints. X-rays obtained in Emergency Department on November 09 were negative for fractures or acute injury. Right shoulder, right knee, and right ankle were not physically examined today due to time limitations and the number of items that needed to be addressed at this visit. - Refer to PT/OT Early Occupational Restorative Program (EORP) at the [facility] - MMI: No. PPD: Too early to determine. #9 Return To Work Status Examination Evaluating workability post-injury. Work restrictions provided today as outlined below. 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 Given the physical requirements of his job and the severity of his injury (impacting right shoulder, right wrist, right knee, right ankle, and left hand), I have a low threshold to transition him to the work hardening/conditioning program after completion of hand therapy. - Refer to PT/OT Early Occupational Restorative Program (EORP) at the [facility]. - Low threshold to transition to work hardening/conditioning program. - Work restrictions outlined below. Work Status: From 01/12/2025 through 03/16/2025, Kirk Carter JrSamm may work his full FTE withthe following restrictions: Unable to work with left hand/arm Lifting restringing on the right side of 1-2 pounds occasionally, 5 pounds rarely. I spent a total of 66 minutes reviewing the patient's medical records and diagnostic tests, seeing the patient, speaking with the nursing team, placing orders, coordinating care, and documenting in the record. documented in this encounter Plan of Treatment Upcoming Encounters Date Type Department Care Team (Latest Contact Info) Description 01/29/2025 2:00 PM CDT Comprehensive Visit Department of Physical Medicine and Rehabilitation in [place], [place] [address] [place], [place] [phone] Ashli Kincaid APRN, C.N.P., M.S.N. [address] [place] [phone] Imtiaz Barker M.S., P.T., D.P.T. [address] [place] [phone] 02/02/2025 10:00 AM CDT Clinical Support Department of Physical Medicine and Rehabilitation in [place], [place] [address] [place] [phone] Alexys Mensah M.B.B.S. [address] [place] [phone] Linda Parra C.H.T., O.T. [address] [place] [phone] 02/03/2025 2:00 PM CDT Clinical Support Department of Physical Medicine and Rehabilitation in [place], [place] [address] [place] [address] Ashli Kincaid APRN, C.N.P., M.S.N. [address] [place] [phone] Imtiaz Barker M.S., P.T., D.P.T. [address] [place] [phone] 02/09/2025 4:00 PM CDT Comprehensive Visit Department of Physical Medicine and Rehabilitation in [address] [address] Ashli Knicaid APRN, C.N.P., M.S.N. [address] [place] [phone] Julián Luz M.A., O.T. 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 [address] [place] [phone] Julián Luz M.A., O.T. [address] [place] [phone] 03/15/2025 10:00 AM SUPERVISOR [employer] Appointment Department of Radiology, [facility], in [place], [place] [address] [place] [phone] Renee Lassiter M.D. [address] [place] [phone] Discharge Disposition: Home or Self Care 03/15/2025 10:30 AM SUPER[employer]OR [employer] Office Visit Department of Orthopedic Surgery in [place], [place] [address] [place] [phone] Alexys Mensah M.B.B.S. [address] [place] [phone] 03/15/2025 11:00 AM SUPERVISOR [employer] Clinical Support Department of Physical Medicine and Rehabilitation in [place], [place] [address] [place] [address] Alexys Mensah M.B.B.S. [address] [place] [phone] Carlos Perez C.H.T., O.T. [address] [place] [phone] 03/15/2025 1:00 PM SUPER[employer]OR [employer] Office Visit Section of Preventive, Transportation and Occupational Medicine in [place], [place] [address] [place] [address] Ashli Kincaid APRN, C.N.P., M.S.N. [address] [place] [phone] Scheduled Referrals Name Type Priority Associated Diagnoses Orde r Schedule Preventive Medicine office visit (clinic) Outpatient Referral Routine Fracture Middle Finger Proximal Phalanx Displaced Sequela Left Fracture Hand Multiple Closed Initial Left Pain Wrist Right Fracture Wrist Closed Initial Right Limitation Of Motion Finger Left Return To Work Status Examination Expected: 03/15/2025, Expires: 04/13/2026 documented as of this encounter Visit Diagnoses Diagnosis Fracture Hand Multiple Closed Initial Left- Primary Fracture Middle Finger Proximal Phalanx Displaced Sequela Left Limitation Of Motion Finger Left Fracture Wrist Closed Initial Right Pain Wrist Right Return To Work Status Examination Injury Shoulder Subsequent Right Injury Knee Subsequent Right Injury Ankle Subsequent Right documented in this encounter Additional Health Concerns Assessment Noted Time PHQ-9 Depression Total Score: 025 6:47 AM CDT documented as of this encounter Care Teams Bucket Chucker Relationship Specialty Start Date End Date Silvia Robison M.D. [address] [place] [phone] PCP - General Family Medicine 10/03/23 documented as of this encounter
--- OUTSIDE RECORDS SUMMARY | 2025-01-23 05:40 | XMS_ITS | Patient Health Record ---
Author Organization [facility], [facility] Address [address] [place] [place] [address] Care Team Providers Care Flat Knitter Helper Name Role Phone Mohamud IGLESIAS, Jona Unavailable [phone] Reason For Referral No Information Plan Of Treatment No Information Insurance Providers Payer Name Payer Address Payer Phone Subscriber Number Group Number Insured Name Patient Relationship to Insured Coverage Start Date Coverage End Date Balta Ocampo [facility] [address] [place] [address] Kirk Carter Self - patient is the insured [facility] [address] [place] [address] Kirk Carter Self - patient is the insured [employer] [id number] [place] [address] [phone] Kirk Carter Self - patient is the insured
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
[2025-01-23 05:43] VITALS: BP 186/110; PULSE 98; RESP 18; TEMP 36.7; O2SAT 99; BMI 32.4
--- NOTE | 2025-01-23 05:52 | ED.EAR ---
HPI - Ear Problem General Time Seen by Provider: 05:52 Date Seen: 01/23/25 Chief complaint: Ear/Nose/Throat Problem Stated complaint: left ear bleeding, nausea Time Seen by Provider: 01/23/25 05:52 Source: patient Mode of arrival: EMS Limitations: no limitations History of Present Illness HPI Narrative: Kirk is a 54-year-old gentleman with a history of diabetes, hyperlipidemia, hypertension, recent surgeries for fractures of the hands and wrists who comes to the emergency room with bleeding from the left ear and pain. Kirk states that for 10 years he has had intermittent drainage from his left ear and an occasional foul smell. Notes that his ears started to bleed today. He has noticed that is bothering him lately. He has also been dealing with some nausea. He denies any fever vomiting or chills. He has not had surgery on his ear in the past but notes at 1 point he did see an ENT and had it cleaned out and it was better for a few days. He agrees that there seems to be some swelling on the bottom of his jaw into his neck. No history of MRSA to his knowledge. He is worried that this is actually a fungal infection. Kirk did take EMS here as his works overnight and had the car and he does not drive at this time. Related Data Home Medications ?Medication ?Instructions ?Recorded ?Confirmed allopurinol 100 mg tablet 100 mg PO BID 12/27/22 01/23/25 amlodipine 10 mg tablet 10 mg PO DAILY 12/27/22 01/23/25 atorvastatin 20 mg tablet 20 mg PO DAILY 12/27/22 01/23/25 bupropion HCl 150 mg 24 hr tablet, 150 mg PO QAM 12/27/22 01/23/25 extended release clonidine HCl 0.1 mg tablet 0.1 mg PO BID 12/27/22 01/23/25 gabapentin 300 mg capsule 300 mg PO TID 12/27/22 01/23/25 labetalol 200 mg tablet 200 mg PO BID 12/27/22 01/23/25 lisinopril 40 mg tablet 40 mg PO DAILY 12/27/22 01/23/25 meloxicam 15 mg tablet 15 mg PO DAILY 12/27/22 01/23/25 metformin 500 mg tablet,extended 1,000 mg PO BID 12/27/22 01/27/24 release 24 hr pantoprazole 40 mg tablet,delayed 40 mg PO Q12H 12/27/22 01/23/25 release empagliflozin 25 mg tablet 25 mg PO QAM 01/23/25 01/23/25 (Jardiance) insulin glargine 100 unit/mL (3 42 unit subcut QPM 01/23/25 01/23/25 mL) subcutaneous pen (Lantus Solostar U-100 Insulin) insulin glargine-yfgn 100 unit/mL 41 unit subcut QPM 01/23/25 01/23/25 subcutaneous solution (Semglee (insulin glargine-yfgn)) Previous Rx's ?Medication ?Instructions ?Recorded furosemide 40 mg tablet (Lasix) 40 mg PO BID #14 tabs 01/03/23 ciprofloxacin HCl 500 mg tablet 500 mg PO BID #14 tabs 01/23/25 hydrocodone 5 mg-acetaminophen 325 1 tab PO Q4-6H PRN pain #15 tabs 01/23/25 mg tablet lpxvtvta-vyaztx-GW-thonzonm 3.3 4 drp otic (ear) QID #10 mL 01/23/25 mg-3 mg-10 mg-0.5 mg/mL ear drops,susp (Cortisporin-TC) polymyxin B sulfate 10,000 1 drp ophthalmic (eye) Q3H 7 days 01/23/25 unit-trimethoprim 1 mg/mL eye drops #10 mL Allergies Allergy/AdvReac Type Severity Reaction Status Date / Time coconut Allergy Mild Hives Verified 01/23/25 05:45 morphine Allergy Mild Hives Verified 01/23/25 05:45 Sulfa (Sulfonamide Allergy Mild Hives Verified 01/23/25 05:45 Antibiotics) Review of Systems Status of ROS: Reports: 10 or more systems reviewed and unremarkable except as noted in History and below Const: Denies: fever or chills Eyes: Denies: change in vision ENMT: Denies: neck pain, throat swelling, difficulty swallowing or nasal congestion Cardio: Denies: chest pain Resp: Denies: cough GI: Reports: nausea; Denies: abdominal pain, vomiting, diarrhea or difficulty swallowing Musculo: Denies: neck pain Neuro: Denies: headache Allergy/Immuno: Denies: throat swelling PFSH PFS Medical History Nephrolithiasis ?N20.0 - Calculus of kidney (ICD-10) Type 2 diabetes mellitus without complications ?E11.9 - Type 2 diabetes mellitus without complications (ICD-10) Hypertensive kidney disease, stage III ?I12.9 - Hypertensive chronic kidney disease with stage 1 through stage 4 chronic kidney disease, or unspecified chronic kidney disease (ICD-10) ?N18.30 - Chronic kidney disease, stage 3 unspecified (ICD-10) Hyperlipidemia ?E78.5 - Hyperlipidemia, unspecified (ICD-10) Gout ?M10.9 - Gout, unspecified (ICD-10) GERD (gastroesophageal reflux disease) ?K21.9 - Gastro-esophageal reflux disease without esophagitis (ICD-10) Essential hypertension ?I10 - Essential (primary) hypertension (ICD-10) Depressive disorder ?F32.A - Depression, unspecified (ICD-10) Chronic sinusitis ?J32.9 - Chronic sinusitis, unspecified (ICD-10) Social History Smoking Status: Former smoker What tobacco products do you use: cigarettes Smoking quit date/years: <= 15 years ago Second hand tobacco smoke exposure: No How often do you have a drink containing alcohol: never How often do you have six or more drinks on one occasion: Never AUDIT-C Alcohol total score: 0 Non-prescribed substance use: denies use Exam Narrative: Exam Narrative: Alert and oriented. Animated in discussion. Eyes are clear. Left TM is poorly visualized as he has significant discomfort with insertion of the speculum. Mild discomfort with movement of the left external ear. No redness noted. Blood is dark and is clearly visualize in the ear canal. Neck is supple without lymphadenopathy. There is a fullness from the bottom of the neck and jaw. Heart with regular rate and rhythm and lungs are clear. Abdomen is soft nontender. Left hand and arm splinted. Oral cavity with moist mucous membranes. Const: Vital Signs, click to edit/add: Vital Signs - 24 hr 01/23/25 05:43 01/23/25 06:52 01/23/25 07:25 Temperature 98.0 F Pulse Rate [Right Pulse Oximeter] 98 77 Respiratory Rate 18 16 Blood Pressure [Ri ght Upper Arm] 186/110 H 155/105 H Pulse Oximetry 99 99 97 Oxygen Delivery Me thod Room Air Room Air Documenting provider has reviewed patient's vital signs: yes Course Course ED Course: Differential diagnosis includes otitis externa otitis media a trauma to the ear canal with bleeding, malignant otitis externa, fungal infection. I have taken a fungal and ear culture at this time. Do feel with the amount of discomfort he is having and the fact that he is a diabetic we should have Kirk undergo CT to evaluate for extension of infection. He is in agreement. Will place an IV draw labs to include CBC, CRP and basic panel. Patient cannot take IV morphine as it causes a rash. He is tolerant to hydrocodone and therefore will give him Vicodin 5/325 1 tablet. Reevaluation(s) Reevaluation #1: Patient is given Zofran 4 mg ODT for nausea. I have ordered irrigation with 1-1 mix of warm water and hydrogen peroxide. However-after speaking to ENT we do get go ahead and cancel this. While awaiting ENT consult patient is given Zosyn 3.375 g IV. Consultations Consultation #1: I had the pleasure of speaking to our ENT doctor Alexus in regards to this patient. Does recommend additional CT looking at temporal bones. He is requesting a noncontrast CT IAC. Also agrees with Ciprodex ear drops. I will be placing a wick. ENT feels that irrigation would not be helpful so that is canceled. Finally, oral Levaquin is suggested to cover for potential Pseudomonas in this diabetic. Cultures are pending at this time. Vital Signs Vital signs: Initial Vital Signs Temperature 98.0 F 01/23/25 05:43 Temperature Source Temporal Artery Scan 01/23/25 05:43 Pulse Rate 98 01/23/25 05:43 Respiratory Rate 18 01/23/25 05:43 Blood Pressure 186/110 H 01/23/25 05:43 Blood Pressure Mean 135 H 01/23/25 05:43 Blood Pressure Position Sitting 01/23/25 05:43 Pulse Oximetry 99 01/23/25 05:43 Oxygen Delivery Method Room Air 01/23/25 05:43 Vital Signs Temperature 98.0 F 01/23/25 05:43 Pulse Rate 98 01/23/25 05:43 Respiratory Rate 18 01/23/25 05:43 Blood Pressure 186/110 H 01/23/25 05:43 Pulse Oximetry 99 01/23/25 05:43 Oxygen Delivery Method Room Air 01/23/25 05:43 Temperature 98.0 F 01/23/25 05:43 Pulse Rate 77 01/23/25 07:25 Respiratory Rate 16 01/23/25 07:25 Blood Pressure 155/105 H 01/23/25 07:25 Pulse Oximetry 97 01/23/25 07:25 Oxygen Delivery Method Room Air 01/23/25 07:25 Medications Administered Medications: Discontinued Medications Generic Name Dose Route Start Last Admin Trade Name Daniel PRN Reason Stop Dose Admin Hydrocodone Bitart/Acetaminophen 1 tab 01/23/25 06:19 01/23/25 06:23 Hydrocodone/Acetamin 7.5-325 Tablet PO 01/23/25 06:20 1 tab ONCE ONE Administration Piperacillin Sod/Tazobactam 100 mls @ 200 mls/hr 01/23/25 07:25 01/23/25 08:24 Sod 3.375 gm/ Sodium Chloride IVPB 01/23/25 07:26 Infused ONCE ONE Infusion Ondansetron HCl 4 mg 01/23/25 08:11 01/23/25 08:36 Ondansetron 2 Mg/Ml Inj IVP 01/23/25 08:12 4 mg ONCE ONE Administration Medical Decision Making MDM Narrative Medical decision making narrative: 1. Otomastoiditis-my initial concern was malignant otitis externa. Fortunately patient has no fever and laboratory values are reassuring. patient treated with Zosyn 3.375 g IV in the ED. Will be discharged home on Ciprodex 3%, 4 drops q.i.d. x7 days. I am unable to see tympanic membrane given patient's discomfort. A wick is placed in the ear. Additional antibiotic Levaquin will be used. I spoke to patient about the use of Levaquin as it does carry a risk of a tendinitis, tendon rupture as well as affecting kidney function. Creatinine today is 0.9. Given history of diabetes I do feel it is important we cover for Pseudomonas, ENT agreement. Unfortunately it does come with some risks. Kirk understands this and is willing to take the antibiotic. Should Kirk experience any ligamental pain he will discontinue the antibiotic. I am hopeful that the culture can guide us in antibiotic therapy as well. 2. Left ear pain-patient given [place] 5/325 in the ED. will give him a prescription for [place] 5/325, 1 tab p.o. q.4-6 hours p.r.n. pain 15. With no refills. 3. Nausea-likely secondary to your symptoms. Zofran 4 mg IV given in the ED. 4 mg ODT will be given to patient to use for nausea. Q.8 hours p.r.n. 10. With no refills 4. Disposition-patient currently awaiting results of temporal bone CT. This case was signed out to my colleague Dr. Chery to read those results. Return to the ER for fever, worsening symptoms and as needed. Addendum: Kirk states that he does not have any money to buy prescriptions. He is on a waiting. To get on his 's insurance. We were able to switch is for prescriptions to [facility]. Addendum 2.: Discussed with Kirk and his once again risks of using Levaquin as we will need to cover for Pseudomonas. They do understand that we did get a culture today and we may be able to change the antibiotic in the future. 01/25/2025:Patient requires change of antibiotic. E coli detected in your culture resistant to fluoroquinolones. Initial phone calls x2 went unanswered. I did leave a message both times. I at last got a hold of Kirk Mena[facility] . Was then able to talk to Kirk and informed him to discontinue the Levaquin. Unfortunately he was unable to roller picker the Ciprodex as [facility] did not cover this medication. He notes continued ear pain. Fortunately this E coli was sensitive to Zosyn given initially in the ED. Patient notes that he is not get paid till Saturday. Therefore we have changed 2 medications in order to fit [facility] ability to help with medications. We will discontinue Levaquin and start cefdinir 300 mg p.o. b.i.d. times 10 days. Will have patient use ofloxacin 10 drops b.i.d. x7 days. Unfortunately this is the only otic medication applicable to this situation. Unable to ascertain integrity of the TM when he was here and therefore will not use hydrocortisone/neomycin. Will update our ENT. [facility] prescriptions left at the front office spec for Kirk to roller picker. Addendum: After discussion with ENT will switch ofloxacin to corticosporin otic. Medical Records Medical records reviewed: Yes I reviewed the patient's medical records Lab Data Lab results reviewed: Yes I reviewed the patient's lab results Labs: Lab Results 01/23/25 Range/Units 06:15 WBC 6.81 (4.50-11.00) K/uL RBC 4.75 (4.30-5.90) m/uL Hgb 13.8 (13.5-17.5) gm/dL Hct 41.7 (37.0-53.0) % MCV 88 (80-100) fL MCH 29 (26-34) pg MCHC 33 (32-36) gm/dL RDW Coeff of Jerry 13.4 (11.5-15.5) % Plt Count 180 (140-440) K/uL Neut % (Auto) 59.1 (42.0-72.0) % Lymph % (Auto) 26.3 (20-44) % Yancey % (Auto) 9.4 (0.0-11.0) % Eos % (Auto) 4.8 (0.0-7.0) % Baso % (Auto) 0.3 (0.0-3.0) % Neut # (Auto) 4.02 (1.7-7.0) K/uL Lymph # (Auto) 1.79 (0.90-2.90) K/uL Yancey # (Auto) 0.60 (0.00-0.90) K/UL Eos # (Auto) 0.33 (0.00-0.50) K/uL Baso # (Auto) 0.02 (0.00-0.30) K/uL Abs Immat Gran (auto) 0.01 (0.00-0.30) K/uL Imm/Tot Granulo (auto) 0.1 % Sodium 138 (135-149) mmol/L Potassium 4.2 (3.6-5.1) mmol/L Chloride 104 (96-114) mmol/L Carbon Dioxide 22 (20-32) mmol/L Anion Gap 12 (7-15) mEq/L BUN 12 (7-30) mg/dL Creatinine 0.8 (0.5-1.5) mg/dL Estimated Creat Clear 136.13 Estimated GFR 106 ml/min Glucose 256 H (60-115) mg/dL Calcium 9.1 (8.4-10.6) mg/dL C-Reactive Protein < 0.5 L (0.5-1.0) mg/dL POC Creatinine 0.9 (0.6-1.3) mg/dl Imaging Data Soft tissue neck CT: Attestation: I have reviewed the pertinent imaging results. Radiologist's impression: Bilateral submandibular and parotid glands are normal in size and attenuation. Thyroid gland is homogeneous. Included neck fat planes are maintained. Pre epiglottic and paraglottic fat planes are preserved. No retropharyngeal edema. Bilateral jugular veins are patent. No suspicious neck lymph nodes. Minimal mucosal thickening of the right maxillary sinus. There is left mastoid effusion with partial sclerosis. Middle ear effusions/mucosal thickening is present. Left external auditory canal appears patent. Multilevel degenerative changes of the spine. IMPRESSION: 1. No suspicious neck mass or cervical lymph nodes. 2. Mild mucosal thickening in bilateral maxillary sinus. 3. Left mastoid and middle ear effusions/mucosal thickening, which can be seen with otomastoiditis and can be further assessed with a CT IAC. Discharge Plan Discharge Clinical Impression: Mastoiditis Qualifiers: Laterality: left Qualified Code(s): H70.92 - Unspecified mastoiditis, left ear Otitis externa Qualifiers: Otitis externa type: other infective Chronicity: acute Laterality: left Qualified Code(s): H60.392 - Other infective otitis externa, left ear Cholesteatoma of ear Qualifiers: Laterality: left Qualified Code(s): H71.92 - Unspecified cholesteatoma, left ear Patient Disposition: Home, Self-Care Condition: Improved Additional Instructions: For treatment of infection: ciprodex ear drops AND oral Levaquin Keep well hydrated with these antibiotics We will await the fungal culture and treat as needed We discussed the use of oral Levaquin which can cause tendinitis or even rupture of the tendons. This is uncommon. Levaquin is the medication that has activity against Pseudomonas which is a bacteria that is more common in diabetic infections. If you start experiencing at joint pain, discontinue this medication and follow-up with your primary doctor or emergency room to be put on a different medicine after they have checked the culture which was what done today. For pain: Tylenol as needed. [place] also known as a combination medication of hydrocodone and Tylenol, 1 tablet every 4-6 hours as needed. Further pain medications will need to go through your primary physician For Nausea: Zofran dissolving tabs as needed. Your nausea should improve as your ear improves For Follow-Up: Dr Vaughan's office should call you and schedule an appointment. return to the er for fever, vomiting, worsening symptoms and as needed Prescriptions: New hydrocodone-acetaminophen 5-325 mg tablet 1 tab PO Q4-6H PRN (Reason: pain) Qty: 15 0RF ciprofloxacin HCl 500 mg tablet 500 mg PO BID Qty: 14 0RF Cortisporin-TC 3.3-3-10-0.5 mg/mL drops,suspension 4 drp otic (ear) QID Qty: 10 0RF polymyxin B sulf-trimethoprim 10,000 unit- 1 mg/mL drops 1 drp ophthalmic (eye) Q3H 7 Days Qty: 10 0RF Rx Instructions: while awake; do not exceed 6 doses in 24 hours No Action clonidine HCl 0.1 mg tablet 0.1 mg PO BID atorvastatin 20 mg tablet 20 mg PO DAILY labetalol 200 mg tablet 200 mg PO BID meloxicam 15 mg tablet 15 mg PO DAILY allopurinol 100 mg tablet 100 mg PO BID amlodipine 10 mg tablet 10 mg PO DAILY pantoprazole 40 mg tablet,delayed release (DR/EC) 40 mg PO Q12H gabapentin 300 mg capsule 300 mg PO TID Rx Instructions: TAKE 1 CAPSULE BY MOUTH IN THE MORNING, 2 CAPSULES IN THE AFTERNOON, AND 3 CAPSULES AT BEDTIME lisinopril 40 mg tablet 40 mg PO DAILY metformin 500 mg tablet extended release 24 hr 1,000 mg PO BID bupropion HCl 150 mg tablet extended release 24 hr 150 mg PO QAM furosemide [Lasix] 40 mg tablet 40 mg PO BID Qty: 14 0RF insulin glargine [Lantus Solostar U-100 Insulin] 100 unit/mL (3 mL) insulin pen 42 unit subcut QPM Jardiance 25 mg tablet 25 mg PO QAM insulin glargine-yfgn [Semglee(insulin glargine-yfgn)] 100 unit/mL solution 41 unit subcut QPM Follow Up/Referrals: Provider,Not a Local [Non-Staff, Family Practice] Stand Alone Forms: MyHealth Info Instructions
--- NOTE | 2025-01-23 06:02 | CRLHL7_ITS ---
For Patients: As a result of the Century Cures Act, medical imaging exams and procedure reports are released immediately into your electronic medical record. You may view this report before your referring provider. If you have questions, please contact your health care provider. INDICATION: Left ear drainage, jaw swelling. TECHNIQUE: CT soft tissue of the neck was acquired with 134 cc Isovue 370 IV contrast. COMPARISON: None. FINDINGS: Bilateral submandibular and parotid glands are normal in size and attenuation. Thyroid gland is homogeneous. Included neck fat planes are maintained. Pre epiglottic and paraglottic fat planes are preserved. No retropharyngeal edema. Bilateral jugular veins are patent. No suspicious neck lymph nodes. Minimal mucosal thickening of the right maxillary sinus. There is left mastoid effusion with partial sclerosis. Middle ear effusions/mucosal thickening is present. Left external auditory canal appears patent. Multilevel degenerative changes of the spine. IMPRESSION: 1. No suspicious neck mass or cervical lymph nodes. 2. Mild mucosal thickening in bilateral maxillary sinus. 3. Left mastoid and middle ear effusions/mucosal thickening, which can be seen with otomastoiditis and can be further assessed with a CT IAC. Please note that all CT scans at this facility use dose modulation, iterative reconstruction, and/or weight-based dosing when appropriate to reduce radiation dose to as low as reasonably achievable. Dictated by Arnel Quinn MD @ 01/23/2025 7:13:13 AM (Electronically Signed)
[2025-01-23 06:20] LABS: Creatinine, Point-of-Care* 0.9 mg/dl (0.6-1.3)
[2025-01-23] MEDS: HYDROCODONE/ACETAMIN 7.5-325 TABLET 1 TAB PO (06:23)
[2025-01-23 06:35] LABS: Hematocrit* 41.7 % (37.0-53.0); Hemoglobin* 13.8 gm/dL (13.5-17.5); Immature Granulocytes Abs Auto 0.01 K/uL (0.00-0.30); Immature Granulocytes Pct Auto 0.1 %; Lymphocytes Absolute Auto 1.79 K/uL (0.90-2.90); Mean Corpuscular HGB Conc 33 gm/dL (32-36); Mean Corpuscular Hemoglobin 29 pg (26-34); Mean Corpuscular Volume 88 fL (80-100); RDW Coefficient of Variation % 13.4 % (11.5-15.5); Red Blood Count* 4.75 m/uL (4.30-5.90); White Blood Count* 6.81 K/uL (4.50-11.00)
--- OUTSIDE RECORDS SUMMARY | 2025-01-23 06:35 | XMS_ITS | Encounter Summary ---
Author Organization [facility] Address [address] [place] [id number] Care Team Providers Care Equine Breeder Name Role Phone Silvia Robison M.D. Primary Care Provider Encounter Details Date Type Department Care Team (Late st Contact Info) Description 11/25/2024 Orders Only Department of Orthopedic Surgery in [place], [place] [address] [place] [address] Linda Arboleda, P.ASamm-C. [address] [place] [phone] Fracture Hand Multiple Closed Initial Left (Primary Dx) Social History Tobacco Use [...] CDT Gender Identity Male 05/21/2020 12:19 PM PALLIATIVE CARE PHYSICIAN Sexual Orientation Straight 07/10/2017 5: 27 PM CDT documented as of this encounter Plan of Treatment Upcoming Encounters Date Type Department Care Team (Latest Contact Info) Description 01/29/2025 2:00 PM CDT Comprehensive Visit Department of Physical Medicine and Rehabilitation in [address] [place] [address] Ashli Kincaid APRN, C.N.P., M.S.N. [address] [place] [phone] Imtiaz Barker M.S., P.T., D.P.T. [address] [place] [phone] 02/02/2025 10:00 AM CDT Clinical Support Department of Physical Medicine and Rehabilitation in [place], [place] [address] [place] [phone] Alexys Mensah M.B.B.S. [address] [place] [phone] Linda Parra C.H.T., O.T. [address] [place] [phone] 02/03/2025 2:00 PM CDT Clinical Support Department of Physical Medicine and Rehabilitation in [address] [id number] Ashli Kincaid APRN, C.NHeather, M.S.N. [address] [place] [phone] Imtiaz Barker M.S., P.T., D.P.T. [address] [place] [phone] 02/09/2025 4:00 PM CDT Comprehensive Visit Department of Physical Medicine and Rehabilitation in [address] [address] Ahsli Kincaid APRN, C.NHeather, M.S.N. [address] [place] [phone] Julián Luz M.A., O.T. [address] [place] [phone] 02/22/2025 10:00 AM PALLIATIVE CARE PHYSICIAN Clinical Support Department of Physical Medicine and Rehabilitation in [place], [place] [address] [place] [address] Ashli Kincaid APRN, C.N.P., M.S.N. [address] [place] [phone] Julián Luz M.A., O.T. [address] [place] [phone] 03/15/2025 10:00 AM PALLIATIVE CARE PHYSICIAN Appointment Department of Radiology, [facility], in [place], [place] [address] [place] [phone] Renee Lassiter M.D. [address] [place] [phone] Discharge Disposition: Home or Self Care 03/15/2025 10:30 AM PALLIATIVE CARE PHYSICIAN Office Visit Department of Orthopedic Surgery in [place], [place] [address] [place] [phone] Alexys Mensah M.B.B.S. [address] [place] [phone] 03/15/2025 11:00 AM PALLIATIVE CARE PHYSICIAN Clinical Support Department of Physical Medicine and Rehabilitation in [place], [place] [address] [place] [phone] Alexys Mensah M.B.B.S. [address] [place] [phone] Carlos Perez C.HLavonne., O.T. [address] [place] [phone] 03/15/2025 1:00 PM PALLIATIVE CARE PHYSICIAN Office Visit Section of Preventive, Transportation and Occupational Medicine in [place], [place] [address] [place] [phone] Ashli Kincaid APRN, C.N.P., M.S.N. [address] [place] [phone] documented as of this encounter Visit Diagnoses Diagnosis Fracture Hand Multiple Closed Initial Left- Primary documented in this encounter Additional Health Concerns Assessment Noted Time PHQ-9 Depression Total Score: 11 025 6:47 AM CDT documented as of this encounter Care Teams Equine Breeder Relationship Specialty Start Date End Date Silvia Robison M.D. [address] [place] [phone] PCP - General Family Medicine 10/03/23 documented as of this encounter
--- OUTSIDE RECORDS SUMMARY | 2025-01-23 06:35 | XMS_ITS | Encounter Summary ---
Author Organization [facility] Address [address] [place] [address] Care Team Providers Care Early Head Start Director Name Role Phone Silvia Robison M.D. Primary Care Provider Encounter Details Date Type Department Care Team (Late st Contact Info) Description 11/24/2024 Orders Only [facility] Silvia Robison M.D. [address] [place] [address] Social History Tobacco Use Types Packs/Day [...] things needed for daily living? 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 [address] [place] [address] Imtiaz Barker M.S., P.T., D.P.T. [address] [place] [phone] 02/02/2025 10:00 AM CDT Clinical Support Department of Physical Medicine and Rehabilitation in [place], [place] [address] [place] [phone] Alexys Mensah M.B.B.S. [address] [place] [phone] Linda Parra C.H.T., O.T. [address] [place] [phone] 02/03/2025 2:00 PM CDT Clinical Support Department of Physical Medicine and Rehabilitation in [address] [phone] Ashli Kincaid APRN, C.N.PSamm, M.S.N. [address] [place] [phone] Imtiaz Barker M.S., P.T., D.P.T. [address] [place] [phone] 02/09/2025 4:00 PM CDT Comprehensive Visit Department of Physical Medicine and Rehabilitation in [place], [place] [address] [place] [phone] Ashli Kincaid APRN C.N.P., M.S.N. [address] [place] [phone] Julián Luz M.A., O.T. [address] [place] [phone] 02/22/2025 10:00 AM ADULT MANAGER Clinical Support Department of Physical Medicine and Rehabilitation in [place], [place] [address] [facility] [place] [address] Ashli Kincaid APRN, C.N.Breonna., M.S.N. [address] [place] [phone] Julián Luz M.A., O.T. [address] [place] [phone] 03/15/2025 10:00 AM ADULT MANAGER Appointment Department of Radiology, [facility], in [place], [place] [address] [place] [phone] Renee Lassiter M.D. [address] [place] [phone] Discharge Disposition: Home or Self Care 03/15/2025 10:30 AM ADULT MANAGER Office Visit Department of Orthopedic Surgery in [place], [place] [address] [place] [phone] Alexys Mensah M.B.B.S. [address] [place] [phone] 03/15/2025 11:00 AM ADULT MANAGER Clinical Support Department of Physical Medicine and Rehabilitation in [place], [place] [address] [place] [phone] Alexys Mensah M.B.B.S. [address] [place] [phone] Carlos Perez, Yelitza.H.T., O.T. [address] [place] [phone] 03/15/2025 1:00 PM ADULT MANAGER Office Visit Section of Preventive, Transportation and Occupational Medicine in [place], [place] [address] [place] [phone] Ashli Kincaid APRN, C.N.P., M.S.N. [address] [place] [address] documented as of this encounter Visit Diagnoses Not on filedocumented in this encounter Additional Health Concerns Assessment Noted Time PHQ-9 Depression Total Score: 11 10/23/ 025 6:47 AM CDT documented as of this encounter Care Teams Early Head Start Director Relationship Specialty Start Date End Date Silvia Robison M.D. [address] [place] [phone] PCP - General Family Medicine 10/03/23 documented as of this encounter
--- OUTSIDE RECORDS SUMMARY | 2025-01-23 06:35 | XMS_ITS | Clinical Summary ---
Author Organization [employer] [facility] Address [address] [place] [address] Care Team Providers Care Fiscal Manager Name Role Phone Silvia Robison MD Primary Care Provi maryuri Allergies Active Allergy Reactions Criticality Noted Date Comments Coconut Anaphylaxis High 01/05/2017 Fentanyl Hives Medium 01/05/2017 Morphine Nausea And Vomiting, Other - Describe In Comment Field Medium 01/05/2017 Nalbuphine Hives Medium 01/05/2017 Sulfa (Sulfonamide Antibiotics) Itching 01/05/2017 Sulfamethoxazole-Trimethop rim *Unknown Medium 12/27/2020 Medications allopurinoL (ZYLOPRIM) 100 mg tablet Take 1 Tablet by mouth two times daily. 12/01/19 21 Active labetaloL (TRANDATE) 200 mg tablet Take 1 Tablet by mouth two times daily. 04/10/20 22 Active cloNIDine HCL (CATAPRES) 0.1 mg tablet Take 1 Tablet by mouth two times daily. 12/01/19 21 Active metFORMIN (GLUCOPHAGE XR) 500 mg Extended-Release tablet Take 2 Tablets by mouth two times daily. 03/09/20 22 Active insulin glargine, U-100, (LANTUS) 100 unit/mL injection Inject 20 units subcutaneous before bedtime. 01/04/20 23 Active mometasone (NASONEX) (50 mcg each actuation) nasal spray Inhale 2 Sprays into affected nostril(s) once daily. 10/10/19 23 Active pantoprazole (PROTONIX) 40 mg delayed-release tabletIndications: Gastroesophageal reflux disease, unspecified whether esophagitis present Take 1 Tablet (40 mg) by mouth two times daily before meals. 180 Tablet 3 07/09/19 24 Active buPROPion (WELLBUTRIN XL) 150 mg Extended-Release tablet Take 1 Tablet by mouth once daily in the morning. 03/09/20 22 Active amLODIPine (NORVASC) 10 mg tablet Take 1 Tablet by mouth once daily. 11/08/19 24 Active atorvastatin (LIPITOR) 20 mg tablet Take 1 Tablet by mouth once daily. 11/08/19 24 Active lisinopriL (PRINIVIL; ZESTRIL) 40 mg tablet Take 1 Tablet by mouth once daily. 11/08/19 24 Active ondansetron (ZOFRAN ODT) 4 mg disintegrating tabletIndications: Nausea Place 1 Tablet (4 mg) on the tongue every 8 hours if needed for Nausea/Vomiting. 6 Tablet 11/16/19 24 Active gabapentin (NEURONTIN) 300 mg capsuleIndications :Median nerve neuropathy, unspecified laterality TAKE 1 CAPSULE BY MOUTH ONCE DAILY IN THE MORNING AND 2 ONCE DAILY AT NOON AND 3 ONCE DAILY AT BEDTIME 540 Capsule 06/17/19 25 Active lidocaine 5 % topical patchIndications:C ervical radiculopathy,Stra in of right trapezius muscle, initial encounter Apply to intact skin to cover most painful area for max 12hr per 24hr period. 14 Patch 07/11/19 25 Active Jardiance 25 mg tabletIndications: Type 2 diabetes mellitus without complication, with long-term current use of insulin (HC) Take 1 tablet by mouth once daily 30 Tablet 07/21/19 25 Active methylPREDNISolone 4 mg tabletIndications: Cervical radiculopathy Take by mouth as instructed per packaging. 21 Tablet 07/21/19 25 Active ibuprofen 600 mg tabletIndications: Cervical radiculopathy Take 1 Tablet (600 mg) by mouth four times daily with meals and at bedtime. Maximum of 3200 mg in 24 hours. 28 Tablet 07/21/19 25 Active baclofen 10 mg tabletIndications: Muscle spasm Take 1 Tablet (10 mg) by mouth 2 times daily if needed (muscle pain). 10 Tablet 08/07/19 25 Active oxyCODONE 5 mg immediate release tabletIndications: Acute recurrent frontal sinusitis,Mastoidi tis of left side Take 1 Tablet (5 mg) by mouth every 4 hours if needed for Pain. 6 Tablet 10/25/19 25 Active amoxicillin-clavul anate 875-125 mg tabletIndications: Acute recurrent frontal sinusitis,Mastoidi tis of left side Take 1 Tablet by mouth two times daily with meals. 20 Tablet 10/25/19 25 Active meloxicam 15 mg tabletIndications: Muscle spasm of right leg Take 1 tablet by mouth once daily 90 Tablet 11/03/19 25 Active Active Problems Problem Noted Date Diagnosed Date Abnormal levels of other serum enzymes 3 Overview (06/19/2022): -noted on previous lab draws [...] visits Hypertensive kidney disease, stage III 3 Overview (06/19/2022): 02/2021: Average blood pressure was [...] (06/19/2022): Added automatically from request for surgery [id number] Added automatically from request for surgery [id number] Type 2 diabetes mellitus without complication Overview [...] Erectile dysfunction 09/23/2017 Overview (06/19/2022): Previously on Viagra and Cialis. 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 Overview (06/19/2022): Gabapentin 300 am, 600 pm, 900 HS Meloxicam 15 mg Gabapentin 300 am, 600 pm, 900 HS Meloxicam 15 mg Encounters Date Type Department Care Team Description 12/17/2024 Telephone [facility] [id number] [place] [phone] Drake Cook MD Refill Request (Methocarbamol) 10/28/2024 Refill [facility] [id number] [place] [phone] Drake Cook MD Refill Request (Meloxicam) 10/24/2024 3:53 AM CDT - 10/24/2024 6:34 AM CDT Emergency [address] [address] Jorje Torres MD Acute recurrent frontal sinusitis (Primary Dx); Mastoiditis of left side Discharge Disposition: Home Self Care 10/24/2024 Travel from Last 3 Months Immunizations Immunization Administration Dates Next Due Hep B (Hepatitis [...] 0 07/09/2023 Social Connections Answer Date Recorded Do you often feel lonely or isolated from those around you? 0 07/01/2023 Financial Resource Strain Answer Date R ecorded Difficulty of Paying Living Expenses 3 07/09/2023 Difficulty of Paying Living Expenses Not on file 07/09/2023 Food Insecurity Answer Date Recorded Do you worry your food will run out before you are able to buy more? 1 07/01/2023 Transportation Needs Answer Date Record ed Does lack of transportation keep you from medica l appointments? 1 07/01/2023 Does lack of transportation keep you from work, meetings or getting things that you need? 1 07/01/2023 Housing Stability Answer Date Recorded What is your housing situation today? 3 07/01/2023 Interpersonal Safety Answer Date Record ed Are you being hit, kicked, p ushed or yelled at (see row info)? No 10/24/2024 Interpersonal Safety Abuse 12 - 18 Not on file 10/24/2024 Interpersonal Safety Ambulatory Vulnerability No t on file 10/24/2024 Utilities Answer Date Recorded Do you have trouble paying f or utilities (for example, heat, electricity, water, phone)? 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 Gender Identity Male 07/10/2023 12:20 PM CDT Sexual Orientation Straight 07/10/2023 12 :20 PM CDT Obstetrics History Last Filed Vital Signs Vital Sign Reading Time Taken Comments Blood Pressure 139/94 10/24/2024 6:15 AM CDT Pulse 83 10/24/2024 6:15 AM CDT Temperature 36.7 C (98 F) 10/24/2024 3:57 AM CDT Respiratory Rate 20 10/24/2024 3:5 7 AM CDT Oxygen Saturation 94% 10/24/2024 6:15 AM CDT Inhaled Oxygen Concentration - - Weight 126.2 kg (278 lb 4.8 oz) 10/24/2024 3:57 AM CDT Height 198.1 cm (6' 6) 10/24/2024 3:57 AM CDT Body Mass Index 32.16 10/24/2024 3:57 AM CDT Plan of Treatment Health Maintenance Due Date Last Done Comments HIV for age 15-65 10/14/1987 Hepatitis C screening for ag e 18-79 1990 Colonoscopy through age 75 2017 Zoster (shingles) series for age 50+ (1 of 2) 2022 BMI (ht and wt on same day) for age 18+ 07/08/2024 07/09/2023 Depression screening for age 12+ 07/08/2024 07/09/2023, 07/09/2023, 07/09/2023 COVID-19 vaccine series ( season) 2024 05/01/2021, 03/03/2021 Influenza Vaccine (#1) 2024 Lipids for age 45-75 07/08/2028 07/09/2023, 06/22/2022 (Verified in Care Everywhere or Patient Record) Tetanus booster 10/14/2029 10/15/2019 RSV vaccine for adults or (1 - 1-dose 75+ series) 10/14/2047 Hepatitis B series for 19+ Completed 05/12, 07/20/2020, 10/15/2019 Pneumococcal series for age 50+ Completed 3 Procedures Procedure Name Priority Date/Time Associated Diagnosis Comments CT SINUS W STAT 10/24/2024 5:40 AM CDT CBC WITH AUTO DIFFERENTIAL STAT 10/24/2024 4:57 AM CDT PROCALCITONIN STAT 10/24/2024 4:57 AM CDT BASIC METABOLIC PANEL STAT 10/24/2024 4:57 AM CDT CBC WITH AUTO DIFFERENTIAL STAT 10/24/2024 4:57 AM CDT LIPID PANEL W REFLEX MEASURED LDL Routine 07/09/2023 10:31 AM CDT Hyperlipidemia, unspecified hyperlipidemia type from Last 3 Months or Most Recently Relevant to Health Maintenance Results * CT SINUS W (10/24/2024 5:40 AM CDT) Anatomical Region Laterality Modality SINUS Computed Tomogra phy us Jorje Torres MD CT Final R esult * CBC WITH AUTO DIFFERENTIAL (10/24/2024 4:57 AM CDT) WHITE BLOOD COUNT 8.0 4.5 - 11.0 thou/cu mm 10/24/2024 5:02 AM [facility] RED BLOOD COUNT 4.48 4.30 - 5.90 mil/cu mm 10/24/2024 5:02 AM [facility] HEMOGLOBIN 13.5 13.5 - 17.5 g/dL 10/24/2024 5:02 AM [facility] HEMATOCRIT 39.8 37.0 - 53.0 % 10/24/2024 5:02 AM [facility] MCV 89 80 - 100 fL 10/24/2024 5:02 AM [facility] MCH 30.1 26.0 - 34.0 pg 10/24/2024 5:02 AM [facility] MCHC 33.9 32.0 - 36.0 g/dL 10/24/2024 5:02 AM [facility] RDW 13.8 11.5 - 15.5 % 10/24/2024 5:02 AM [facility] PLATELET COUNT 204 140 - 440 thou/cu mm 10/24/2024 5:02 AM [facility] MPV 10.7 6.5 - 11.0 fL 10/24/2024 5:02 AM [facility] % NEUT 66.5 % 10/24/2024 5:02 AM [facility] % LYMPH 21.8 % 10/24/2024 5:02 AM [facility] % MONO 8.3 % 10/24/2024 5:02 AM [facility] % EOS 3.1 % 10/24/2024 5:02 AM [facility] % BASO 0.3 % 10/24/2024 5:02 AM [facility] ABSOLUTE NEUTROPHILS 5.3 1.7 - 7.0 thou/cu mm 10/24/2024 5:02 AM [facility] ABSOLUTE LYMPHOCYTES 1.7 0.9 - 2.9 thou/cu mm 10/24/2024 5:02 AM [facility] ABSOLUTE MONOCYTES 0.7 <0.9 thou/cu mm 10/24/2024 5:02 AM [facility] ABSOLUTE EOSINOPHILS 0.3 <0.5 thou/cu mm 10/24/2024 5:02 AM [facility] ABSOLUTE BASOPHILS 0.0 <0.3 thou/cu mm 10/24/2024 5:02 AM [facility] Blood BLOOD SPECIMEN / Unknown IV Start / Unknown 10/24/2024 4:57 AM CDT 10/24/2024 4:59 AM CDT us Jorje Torres MD HEMATOLOGY Final R esult [facility] [address] [phone] * PROCALCITONIN (10/24/2024 4:57 AM CDT) PROCALCITONIN 0.10 ng/ml 10/24/2024 5:39 AM T [facility] Blood BLOOD SPECIMEN / Unknown IV Start / Unknown 10/24/2024 4:57 AM CDT 10/24/2024 4:59 AM CDT Narrative [facility] - 10/24/2024 5:39 AM CDT Procalcitonin for initial assessment of Lower Respiratory Tract Infection: Results Interpretation <0.10 ng/mL Antibiotic therapy strongly discoraged. Indicates absent of bacterial infection. * 0.10 - 0.25 ng/mL Antibiotic therapy discouraged. Bacterial infection unlikely. * 0.26 - 0.50 ng/mL Antibiotic therapy encouraged. Bacterial infection possible. >0.50 ng/mL Antibiotic therapy strongly encouraged. Suggestive of presence of bacterial infection. *Antibiotic therapy should be considered regardless of PCT result if the patient is clinically unstable, is at high risk for adverse outcome, has strong evidence of bacterial pathogen, or the clinical context indicates antibiotic therapy is warranted. If antibiotics are withheld, reassess if symptoms persist/worsen and/or repeat PCT measurement within 6-24 hours. In order to assess treatment success and to support a decision to discontinue antibiotic therapy, follow up samples should be tested once every 1-2 days, based upon physician discretion taking into account patient's evolution and progress. Procalcitonin for initial assessment of severe sepsis risk: Results Interpretation <0.5 ng/ml A PCT level below 0.5 ng/ml on the first day of ICU admission is associated with a low risk for progression to severe sepsis and/or septic shock. > 2.0 ng/mL A PCT level above 2.0 ng/mL on the first day of ICU admission is associated with a high risk for progression to severe sepsis and/or septic shock. Note: Concentrations < 0.5 ng/mL do not exclude an infection, on account of localized infections (without systemic signs) which can be associated with such low concentrations, or a systemic infection in its initial stages(< 6 hours). Furthermore, increased procalcitonin can occur without infection. PCT concentrations between 0.5 and 2.0 ng/mL should be interpreted taking into account the patient's history. It is recommended to retest PCT within 6-24 hours if any concentrations < 2 ng/mL are obtained. us Jorje Torres MD SEND OUTS Final R esult [facility] [address] [phone] * (ABNORMAL) BASIC METABOLIC PANEL (10/24/2024 4:57 AM CDT) [facility] SODIUM 139 136 - 145 mmol/L 10/24/2024 5:32 AM T [facility] POTASSIUM 3.6 3.5 - 5.1 mmol/L 10/24/2024 5:32 AM [facility] CHLORIDE 105 98 - 107 mmol/L 10/24/2024 5:32 AM [facility] CO2,TOTAL 18(L) 22 - 29 mmol/L 10/24/2024 5:32 AM [facility] ANION GAP 16 5 - 18 10/24/2024 5:32 AM [facility] GLUCOSE 182(H) 70 - 99 mg/dL 10/24/2024 5:32 AM [facility] CALCIUM 8.6(L) 8.8 - 10.4 mg/dL 10/24/2024 5:32 AM [facility] Comment: Reference ranges for this test were updated on 02/25/2024 to reflect our healthy population more accurately. Reference range changes are not retroactively applied to results, but previous results using the same methodology can be interpreted in the context of the new reference range. BUN 13 6 - 20 mg/dL 10/24/2024 5:32 AM [facility] CREATININE 0.99 0.70 - 1.20 mg/dL 10/24/2024 5:32 AM [facility] BUN/CREAT RATIO 13 10 - 20 5:32 AM [facility] eGFR >90 >90 mL/min/1.7 3m2 10/24/2024 5:32 AM [facility] Comment:As of 2021, eG FR is calculated by the CKD-EPI creatinine equation without race adjustment. eGFR can be influenced by muscle mass, exercise, and diet. The reported eGFR is an estimation only and is only applicable if the renal function is stable. Blood BLOOD SPECIMEN / Unknown IV Start / Unknown 10/24/2024 4:57 AM CDT 10/24/2024 4:59 AM CDT us Jorje Torres MD CHEMISTRY Final R esult [facility] [address] [phone] * (ABNORMAL) LIPID PANEL W REFLEX MEASURED LDL (07/09/2023 10:31 AM CDT) CHOLESTEROL,TOTAL 132 100 - 199 mg/dL 07/09/2023 2:52 PM CDT [facility] Comment: Cholesterol, Total Reference Ranges Desirable <200 mg/dL Borderline 200-239 mg/dL High >=240 mg/dL TRIGLYCERIDES 225(H) <150 mg/dL 07/09/2023 2:52 PM CDT [facility] HDL CHOLESTEROL 35(L) >40 mg/dL 2:52 PM CDT [facility] NON-HDL CHOLESTEROL 97 <145 mg/dl 07/09/2023 2:52 PM CDT [facility] CHOL/HDL RATIO 3.77 <4.50 07/09/2023 2:52 PM CDT [facility] LDL CHOLESTEROL 52 <=130 mg/dL 07/09/2023 2:52 PM CDT [facility] VLDL CHOLESTEROL 45(H) <=30 mg/dL 07/09/2023 2:52 PM CDT [facility] PROVIDER ORDERED STATUS FASTING 07/09/2023 2:52 PM CDT [facility] Blood BLOOD SPECIMEN / Unknown Venipuncture / Unknown 07/09/2023 10:31 AM CDT 07/09/2023 10:32 AM CDT us Leeroy MONTGOMERY CHEMISTRY Final Resul t [facility] [address] [place] [address], from Last 3 Months or Most Recently Relevant to Health Maintenance Insurance [facility] [id number] HP NATHAN PARKER [id number] Care Teams Fiscal Manager Relationship Specialty Start Date End Date Silvia Robison MD [address] [place], [place] [phone] PCP - General Family Practice 09/02/23
--- OUTSIDE RECORDS SUMMARY | 2025-01-23 06:35 | XMS_ITS | Encounter Summary ---
Author Organization [facility] Address [address] [place] [address] Care Team Providers Care Associate Professor Of Music Name Role Phone Silvia Robison M.D. Primary Care Provider Encounter Details Date Type Department Care Team (Late st Contact Info) Description 11/27/2024 Orders Only Department of Orthopedic Surgery in [place], [place] [address] [place] [address] Saba Rogers P.A.-C. [address] [place] [address] Social History Tobacco Use Types Packs/Day Years [...] things needed for daily living? 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 [address] [place] [phone] Imtiaz Barker M.S., P.T., D.P.T. [address] [place] [phone] 02/02/2025 10:00 AM CDT Clinical Support Department of Physical Medicine and Rehabilitation in [place], [place] [address] [place] [phone] Alexys Mensah M.B.B.S. [address] [place] [phone] Linda Parra C.H.T., O.T. [address] [place] [phone] 02/03/2025 2:00 PM CDT Clinical Support Department of Physical Medicine and Rehabilitation in [place], [place] [address] [place] [phone] Ashli Kincaid APRN, Yelitza.N.P., M.S.N. [address] [place] [phone] Imtiaz Barker M.S., P.T., D.P.T. [address] [place] [phone] 02/09/2025 4:00 PM CDT Comprehensive Visit Department of Physical Medicine and Rehabilitation in [place], [place] [address] [place], [place] [phone] Ashli Kincaid APRN C.N.P., M.S.N. [address] [place] [phone] Julián Luz, MSammA., O.T. [address] [place] [phone] 02/22/2025 10:00 AM REGIONAL DRIVER Clinical Support Department of Physical Medicine and Rehabilitation in [place], [place] [address] [facility] [address] [place] [address] Ashli Kincaid APRN, C.NMago., M.S.N. [address] [place] [phone] Julián Luz M.A., O.T. [address] [place] [phone] 03/15/2025 10:00 AM REGIONAL DRIVER Appointment Department of Radiology, [facility], in [place], [place] [address] [place] [phone] Renee Lassiter M.D. [address] [place] [phone] Discharge Disposition: Home or Self Care 03/15/2025 10:30 AM REGIONAL DRIVER Office Visit Department of Orthopedic Surgery in [place], [place] [address] [place] [phone] Alexys Mensah M.B.B.S. [address] [place] [phone] 03/15/2025 11:00 AM REGIONAL DRIVER Clinical Support Department of Physical Medicine and Rehabilitation in [place], [place] [address] [place] [phone] Alexys Mensah M.B.B.S. [address] [place] [phone] Carlos Perez C.H.T., O.T. [address] [place] [phone] 03/15/2025 1:00 PM REGIONAL DRIVER Office Visit Section of Preventive, Transportation and Occupational Medicine in [place], [place] [address] [place] [phone] Ashli Kincaid APRN, C.N.P., M.S.N. [address] [place] [phone] documented as of this encounter Visit Diagnoses Not on filedocumented in this encounter Additional Health Concerns Assessment Noted Time PHQ-9 Depression Total Score: 11 025 6:47 AM CDT documented as of this encounter Care Teams Associate Professor Of Music Relationship Specialty Start Date End Date Silvia Robison M.D. [address] [place] [phone] PCP - General Family Medicine 10/03/23 documented as of this encounter
--- OUTSIDE RECORDS SUMMARY | 2025-01-23 06:35 | XMS_ITS | Encounter Summary ---
Author Organization [facility] Address [address] [place] [address] Care Team Providers Care Chemical Operations Specialist Name Role Phone Silvia Robison M.D. Primary Care Provider Reason for Visit * Reason Comments Med Refill Encounter Details Date Type Department Care Team (Late st Contact Info) Description 12/03/2024 Refill Department of Family Medicine, [facility], in [place], [place] [address] [place] [phone] Silvia Robison M.D. [address] [place] [phone] Med Refill Social History Tobacco Use [...] Recorded In the past 12 months has [employer], gas, oil, or water [employer] threatened to shut off services in your [...] CDT Gender Identity Male 05/21/2020 12:19 PM RF ENGINEER Sexual Orientation Straight 07/10/2017 5: 27 PM CDT documented as of this encounter Miscellaneous Notes * Telephone Encounter - Sarina Peñaloza L.P.NSamm - 12/08/2024 1:47 PM CDT Patient verified he is taking the bupropion 150 mg every morning, script pended. * Telephone Encounter - Tatum Mitchell - 12/08/2024 7:31 AM CDT Needs Review: Med Refill Team is unable to forward request to provider. Discrepancy: Verification Required. Medication Discontinued. Primary Provider: Silvia Robison M.D. Requested Prescriptions Pending Prescriptions Disp Refills buPROPion XL (Wellbutrin XL) 150 mg 24 hr tablet [Pharmacy Med Name: buPROPion HCl ER (XL) 150 MG Oral Tablet Extended Release 24 Hour] 90 tablet 0 Sig: TAKE 1 TABLET BY MOUTH ONCE DAILY IN THE MORNING documented in this encounter Plan of Treatment Upcoming Encounters Date Type Department Care Team (Latest Contact Info) Description 01/29/2025 2:00 PM CDT Comprehensive Visit Department of Physical Medicine and Rehabilitation in [place], [place] [address] [place] [address] [place] [address] Ashli Kincaid APRN, C.N.P., M.S.N. [address] [place] [phone] Imtiaz Barker M.S., P.T., D.P.T. [address] [place] [phone] 02/02/2025 10:00 AM CDT Clinical Support Department of Physical Medicine and Rehabilitation in [place], [place] [address] [place] [phone] Alexys Mensah M.B.B.S. [address] [place] [phone] Linda Parra C.HLavonne., O.T. [address] [place] [phone] 02/03/2025 2:00 PM CDT Clinical Support Department of Physical Medicine and Rehabilitation in [place], [place] [address] [place] [phone] Ashli Kincaid APRN, C.N.P., M.S.N. [address] [place] [phone] Imtiaz Barker M.S., P.T., D.P.T. [address] [place] [phone] 02/09/2025 4:00 PM CDT Comprehensive Visit Department of Physical Medicine and Rehabilitation in [place], [place] [address] [place], [place] [phone] Ashli Kincaid APRN, C.N.P., M.S.N. [address] [place] [phone] Julián Luz MSammA., O.T. [address] [place] [phone] 02/22/2025 10:00 AM RF ENGINEER Clinical Support Department of Physical Medicine and Rehabilitation in [place], [place] [address] [place] [address] Ashli Kincaid APRN, C.N.P., M.S.N. [address] [place] [phone] Julián Luz M.A., O.T. [address] [place] [phone] 03/15/2025 10:00 AM RF ENGINEER Appointment Department of Radiology, [facility], in [place], [place] [address] [place] [phone] Renee Lassiter M.D. [address] [place] [phone] Discharge Disposition: Home or Self Care 03/15/2025 10:30 AM RF ENGINEER Office Visit Department of Orthopedic Surgery in [place], [place] [address] [place] [phone] Alexys Mensah M.B.B.S. [address] [place] [phone] 03/15/2025 11:00 AM RF ENGINEER Clinical Support Department of Physical Medicine and Rehabilitation in [place], [place] [address] [place] [phone] Alexys Mensah M.B.B.S. [address] [place] [phone] Carlos Perez, MikelH.T., O.T. [address] [place] [phone] 03/15/2025 1:00 PM RF ENGINEER Office Visit Section of Preventive, Transportation and Occupational Medicine in [place], [place] [address] [place] [phone] Ashli Kincaid APRN, C.N.P., M.S.N. [address] [place] [phone] documented as of this encounter Visit Diagnoses Not on filedocumented in this encounter Additional Health Concerns Assessment Noted Time PHQ-9 Depression Total Score: 11 025 6:47 AM CDT documented as of this encounter Care Teams Chemical Operations Specialist Relationship Specialty Start Date End Date Silvia Robison M.D. [address], [place] [phone] PCP - General Family Medicine 10/03/23 documented as of this encounter
--- OUTSIDE RECORDS SUMMARY | 2025-01-23 06:35 | XMS_ITS | Encounter Summary ---
Author Organization [facility] Address [address] [place] [address] Care Team Providers Care Financial Associate Name Role Phone Silvia Robison M.D. Primary Care Provider Encounter Details Date Type Department Care Team (Late st Contact Info) Description 11/11/2024 Clinical Communication Department of Orthopedic Surgery in [place], [place] [address] [place] [address] Alexys Mensah M.B.B.S. [address] [place] [address] Social History Tobacco Use Types Packs/Day Years [...] things needed for daily living? No 11/10/2024 [facility] Utilities Answer Date Recorded In the past [...] CDT Gender Identity Male 05/21/2020 12:19 PM BUSINESS EXECUTIVE Sexual Orientation Straight 07/10/2017 5: 27 PM CDT documented as of this encounter Plan of Treatment Upcoming Encounters Date Type Department Care Team (Latest Contact Info) Description 01/29/2025 2:00 PM CDT Comprehensive Visit Department of Physical Medicine and Rehabilitation in [place], [place] [address] [facility] [place] [address] Ashli Kincaid APRN, C.N.P., M.S.N. [address] [place] [phone] Imtiaz Barker M.S., P.T., D.P.T. [address] [place] [phone] 02/02/2025 10:00 AM CDT Clinical Support Department of Physical Medicine and Rehabilitation in [place], [place] [address] [place] [phone] Alexys Mensah M.B.B.S. [address] [place] [phone] Linda Parra C.H.T., O.T. [address] [place] [phone] 02/03/2025 2:00 PM CDT Clinical Support Department of Physical Medicine and Rehabilitation in [place], [place] [address] [place] [phone] Ashli Kincaid APRN, C.N.P., M.S.N. [address] [place] [phone] Imtiaz Barker M.S., P.T., D.P.T. [address] [place] [phone] 02/09/2025 4:00 PM CDT Comprehensive Visit Department of Physical Medicine and Rehabilitation in [place], [place] [address] [place], [place] [phone] Ashli Kincaid APRN, C.N.Andrew, M.S.N. [address] [place] [phone] Julián Luz M.A., O.T. [address] [place] [phone] 02/22/2025 10:00 AM BUSINESS EXECUTIVE Clinical Support Department of Physical Medicine and Rehabilitation in [place], [place] [address] [facility] [address] Ashli Kincaid APRN, C.N.P., M.S.N. [address] [place] [phone] Julián Luz M.A., O.T. [address] [place] [phone] 03/15/2025 10:00 AM BUSINESS EXECUTIVE Appointment Department of Radiology, [facility], in [place], [place] [address] [place] [phone] Renee Lassiter M.D. [address] [place] [phone] Discharge Disposition: Home or Self Care 03/15/2025 10:30 AM BUSINESS EXECUTIVE Office Visit Department of Orthopedic Surgery in [place], [place] [address] [place] [phone] Alexys Mensah M.B.B.S. [address] [place] [phone] 03/15/2025 11:00 AM BUSINESS EXECUTIVE Clinical Support Department of Physical Medicine and Rehabilitation in [place], [place] [address] [place] [phone] Alexys Mensah M.B.B.S. [address] [place] [phone] Carlos Perez C.H.T., O.T. [address] [place] [phone] 03/15/2025 1:00 PM BUSINESS EXECUTIVE Office Visit Section of Preventive, Transportation and Occupational Medicine in [place], [place] [address] [place] [phone] Ashli Kincaid APRN CSammNSammP., M.S.N. [address] [place] [phone] documented as of this encounter Visit Diagnoses Not on filedocumented in this encounter Additional Health Concerns Assessment Noted Time PHQ-9 Depression Total Score: 11 10/23/ 025 6:47 AM CDT documented as of this encounter Care Teams Financial Associate Relationship Specialty Start Date End Date Silvia Robison M.D. [address] [place] [phone] PCP - General Family Medicine 10/03/23 documented as of this encounter
--- OUTSIDE RECORDS SUMMARY | 2025-01-23 06:35 | XMS_ITS | Encounter Summary ---
Author Organization [facility] Address [address] [place] [address] Care Team Providers Care Kids Activities Coach Name Role Phone Silvia Robison M.D. Primary Care Provider Encounter Details Date Type Department Care Team (Late st Contact Info) Description 11/30/2024 Orders Only Department of Orthopedic Surgery in [place], [place] [address] [place] [address] Saba Rogers P.A.-C. [address] [place] [address] Social History Tobacco Use Types Packs/Day Years [...] things needed for daily living? No 11/10/2024 [facility] Utilities Answer Date Recorded In the [...] CDT Gender Identity Male 05/21/2020 12:19 PM CARE TRANSITION COORDINATOR Sexual Orientation Straight 07/10/2017 5: 27 PM CDT documented as of this encounter Plan of Treatment Upcoming Encounters Date Type Department Care Team (Latest Contact Info) Description 01/29/2025 2:00 PM CDT Comprehensive Visit Department of Physical Medicine and Rehabilitation in [place], [place] [address] [facility] [place] [address] Ashli Kincaid APRN, C.N.P., M.S.N. [address] [place] [phone] Imtiaz Barker M.S., P.T., D.P.T. [address] [place] [phone] 02/02/2025 10:00 AM CDT Clinical Support Department of Physical Medicine and Rehabilitation in [place], [place] [address] [place] [phone] Alexys Mensah M.B.B.S. [address] [place] [phone] Linda Parra C.H.T., O.T. [address] [place] [phone] 02/03/2025 2:00 PM CDT Clinical Support Department of Physical Medicine and Rehabilitation in [place], [place] [address] [place] [phone] Ashli Kincaid APRN, Yelitza.N.P., M.S.N. [address] [place] [phone] Imtiaz Barker M.S., P.T., D.P.T. [address] [place] [phone] 02/09/2025 4:00 PM CDT Comprehensive Visit Department of Physical Medicine and Rehabilitation in [place], [place] [address] [place], [place] [phone] Ashli Kincaid APRN C.N.P., M.S.N. [address] [place] [phone] Julián Luz, MSammA., O.T. [address] [place] [phone] 02/22/2025 10:00 AM CARE TRANSITION COORDINATOR Clinical Support Department of Physical Medicine and Rehabilitation in [place], [place] [address] [facility] [place] [address] Ashli Kincaid APRN, C.NMago., M.S.N. [address] [place] [phone] Julián Luz M.A., O.T. [address] [place] [phone] 03/15/2025 10:00 AM CARE TRANSITION COORDINATOR Appointment Department of Radiology, [facility], in [place], [place] [address] [place] [phone] Renee Lassiter M.D. [address] [place] [phone] Discharge Disposition: Home or Self Care 03/15/2025 10:30 AM CARE TRANSITION COORDINATOR Office Visit Department of Orthopedic Surgery in [place], [place] [address] [place] [phone] Alexys Mensah M.B.B.S. [address] [place] [phone] 03/15/2025 11:00 AM CARE TRANSITION COORDINATOR Clinical Support Department of Physical Medicine and Rehabilitation in [place], [place] [address] [place] [phone] Alexys Mensah M.B.B.S. [address] [place] [phone] Carlos Perez C.H.T., O.T. [address] [place] [phone] 03/15/2025 1:00 PM CARE TRANSITION COORDINATOR Office Visit Section of Preventive, Transportation and Occupational Medicine in [place], [place] [address] [place] [phone] Ashli Kincaid APRN, C.N.P., M.S.N. [address] [place] [address] documented as of this encounter Visit Diagnoses Not on filedocumented in this encounter Additional Health Concerns Assessment Noted Time PHQ-9 Depression Total Score: 11 025 6:47 AM CDT documented as of this encounter Care Teams Kids Activities Coach Relationship Specialty Start Date End Date Silvia Robison M.D. [address] [place] [phone] PCP - General Family Medicine 10/03/23 documented as of this encounter
--- OUTSIDE RECORDS SUMMARY | 2025-01-23 06:36 | XMS_ITS | Encounter Summary ---
Author Organization [facility] Address [address] [place] [address] Care Team Providers Care Ux Interaction Designer Name Role Phone Silvia Robison M.D. Primary Care Provider Encounter Details Date Type Department Care Team (Late st Contact Info) Description 01/07/2025 Clinical Communication Division of Plastic Surgery in [place], [place] [address] [place] [address] Ailin Rowan M.D. [address] [place] [address] Social History Tobacco Use Types Packs/Day Years [...] needed for daily living? No 12/24/2024 [facility] Utilities Answer Date Recorded In the past 12 months has e [employer], gas, oil, or water [employer] threatened to shut off services in your home? Patient declined 12/24/2024 Depression Answer Date Recor ded PHQ-9 Total Score (max 27) 11 10/23 Housing Stability Answer Date Recorded What is your living situatio n today? I do not have a steady place to live (I am temporarily staying with others, in a hotel, in a skilled nursing, living outside on the street, on a [...] CDT Gender Identity Male 05/21/2020 12:19 PM BLOCK STACKER Sexual Orientation Straight 07/10/2017 5: 27 PM CDT documented as of this encounter Miscellaneous Notes * Telephone Encounter - Ailin Rowan M.D. - 01/07/2025 9:17 PM CDT Received a call from Mr. Carter stating he can now see the K-wire on his middle finger starting to protrude through the skin. He states the surrounding skin itches, but does not exhibit signs of infection such as redness or drainage. I encouraged him to keep the site clean and dry until his upcoming visit next week for pin removal. He also notes some stiffness in the index and ring finger PIP andDIP joints, which is stable since the surgery. He has been gently ranging them per instructions from the team and wanted to make sure that is normal. We discussed the normal postoperative course including hand therapy for edema control and ROM exercises. Patient will be seen next week by the team. Will notify Saba Nunnor in the event they would like to remove the wire sooner than 01/12. documented in this encounter Plan of Treatment Upcoming Encounters Date Type Department Care Team (Latest Contact Info) Description 01/29/2025 2:00 PM CDT Comprehensive Visit Department of Physical Medicine and Rehabilitation in [address] [place] [address] Ashli Kincaid APRN, C.N.P., M.S.N. [address] [place] [phone] Imtiaz Barker M.S., P.T., D.P.T. [address] [place] [phone] 02/02/2025 10:00 AM CDT Clinical Support Department of Physical Medicine and Rehabilitation in [place], [place] [address] [place] [phone] Alexys Mensah M.B.B.S. [address] [place] [phone] Linda Parra C.H.T., O.T. [address] [place] [phone] 02/03/2025 2:00 PM CDT Clinical Support Department of Physical Medicine and Rehabilitation in [place], [place] [address] [place], [place] [phone] Ashli Kincaid APRN, C.N.P., M.S.N. [address] [place] [phone] Imtiaz Barker M.S., P.T., D.P.T. [address] [place] [phone] 02/09/2025 4:00 PM CDT Comprehensive Visit Department of Physical Medicine and Rehabilitation in [place], [place] [address] [place], [place] [phone] Ashli Kincaid APRN, C.N.P., M.S.N. [address] [place] [phone] Julián Luz, M.A., O.T. [address] [place] [phone] 02/22/2025 10:00 AM BLOCK STACKER Clinical Support Department of Physical Medicine and Rehabilitation in [place], [place] [address] [place] [address] Ashli Kincaid APRN, C.N.P., M.S.N. [address] [place] [phone] Julián Luz, M.A., O.T. [address] [place] [phone] 03/15/2025 10:00 AM BLOCK STACKER Appointment Department of Radiology, [facility], in [place], [place] [address] [place] [address] Renee Lassiter M.D. [address] [place] [phone] Discharge Disposition: Home or Self Care 03/15/2025 10:30 AM BLOCK STACKER Office Visit Department of Orthopedic Surgery in [place], [place] [address] [place] [phone] Alexys Mensah M.B.B.S. [address] [place] [phone] 03/15/2025 11:00 AM BLOCK STACKER Clinical Support Department of Physical Medicine and Rehabilitation in [place], [place] [address] [place] [phone] Alexys Mensah M.B.B.S. [address] [place] [phone] Carlos Perez C.H.T., O.T. [address] [place] [phone] 03/15/2025 1:00 PM BLOCK STACKER Office Visit Section of Preventive, Transportation and Occupational Medicine in [place], [place] [address] [place] [phone] Ashli Kincaid APRN, C.N.P., M.S.N. [address] [place] [phone] documented as of this encounter Visit Diagnoses Not on filedocumented in this encounter Additional Health Concerns Assessment Noted Time PHQ-9 Depression Total Score: 11 025 6:47 AM CDT documented as of this encounter Care Teams Ux Interaction Designer Relationship Specialty Start Date End Date Silvia Robison M.D. [address] [phone] PCP - General Family Medicine 10/03/23 documented as of this encounter
--- OUTSIDE RECORDS SUMMARY | 2025-01-23 06:36 | XMS_ITS | Encounter Summary ---
Author Organization [facility] Address [address] [place] [address] Care Team Providers Care Explosives Operator Name Role Phone Silvia Robison M.D. Primary Care Provider Encounter Details Date Type Department Care Team (Late st Contact Info) Description 12/24/2024 Documentation Department of Orthopedic Surgery in [place], [place] [address] [place] [address] Saba Rogers P.A.-C. [address] [place] [address] Social History Tobacco Use Types Packs/Day Years [...] things needed for daily living? No 12/24/2024 [facility] Utilities Answer Date Recorded In the past 12 months has e [employer], gas, oil, or water [employer] threatened to shut off services in your [...] CDT Gender Identity Male 05/21/2020 12:19 PM CLIENT INSIGHTS CONSULTANT Sexual Orientation Straight 07/10/2017 5: 27 PM CDT documented as of this encounter Progress Notes * aSba Rogers P.A.-C. - 12/24/2024 10:49 AM CDT Phone Call I returned a call to the patient. He noticed that he could feel the buried k- wire in the middle finger during the shower. It remains buried and has not protruded through the skin. I have recommended keeping the k-wire in place for 2 more weeks unless it comes through the skin. Patient should continue gentle ROM of the fingers. No lifting of heavy lifting. Patient can wean out of the brace on the right wrist. We will see the patient back as planned on 01/08 for k-wire removal Patient is in agreement with this plan. No further questions documented in this encounter Plan of Treatment Upcoming Encounters Date Type Department Care Team (Latest Contact Info) Description 01/29/2025 2:00 PM CDT Comprehensive Visit Department of Physical Medicine and Rehabilitation in [address] [phone] Ashli Kincaid APRN, C.Bob., M.S.N. [address] [place] [phone] Imtiaz Barker M.S., P.T., D.P.T. [address] [place] [phone] 02/02/2025 10:00 AM CDT Clinical Support Department of Physical Medicine and Rehabilitation in [place], [place] [address] [place] [phone] lAexys Mensah M.B.B.S. [address] [place] [phone] Linda Parra C.H.T., O.T. [address] [place] [phone] 02/03/2025 2:00 PM CDT Clinical Support Department of Physical Medicine and Rehabilitation in [address] [phone] Ashli Kincaid APRN, C.N.P., M.S.N. [address] [place] [phone] Imtiaz Barker M.S., P.T., D.P.T. [address] [place] [phone] 02/09/2025 4:00 PM CDT Comprehensive Visit Department of Physical Medicine and Rehabilitation in [address] [address] Ashli Kincaid APRN, C.N.P., M.S.N. [address] [place] [phone] Julián Luz, MSammA., O.T. [address] [place] [phone] 02/22/2025 10:00 AM CLIENT INSIGHTS CONSULTANT Clinical Support Department of Physical Medicine and Rehabilitation in [address] [address] Ashli Kincaid APRN, C.N.P., M.S.N. [address] [place] [phone] Julián Luz, M.A., O.T. [address] [place] [phone] 03/15/2025 10:00 AM CLIENT INSIGHTS CONSULTANT Appointment Department of Radiology, [facility], in [place], [place] [address] [place] [phone] Renee Lassiter M.D. [address] [place] [phone] Discharge Disposition: Home or Self Care 03/15/2025 10:30 AM CLIENT INSIGHTS CONSULTANT Office Visit Department of Orthopedic Surgery in [place], [place] [address] [place] [phone] Alexys Mensah M.B.B.S. [address] [place] [phone] 03/15/2025 11:00 AM CLIENT INSIGHTS CONSULTANT Clinical Support Department of Physical Medicine and Rehabilitation in [place], [place] [address] [place] [phone] Alexys Mensah M.B.B.S. [address] [place] [phone] Carlos Perez C.H.T., O.T. [address] [place] [phone] 03/15/2025 1:00 PM CLIENT INSIGHTS CONSULTANT Office Visit Section of Preventive, Transportation and Occupational Medicine in [place], [place] [address] [place] [phone] Ashli Kincaid APRN, C.N.P., M.S.N. [address] [place] [phone] documented as of this encounter Visit Diagnoses Not on filedocumented in this encounter Additional Health Concerns Assessment Noted Time PHQ-9 Depression Total Score: 11 025 6:47 AM CDT documented as of this encounter Care Teams Explosives Operator Relationship Specialty Start Date End Date Silvia Robison M.D. NPJacob: [phone] [address] [phone] PCP - General Family Medicine 10/03/23 documented as of this encounter
--- OUTSIDE RECORDS SUMMARY | 2025-01-23 06:36 | XMS_ITS | Encounter Summary ---
Author Organization [facility] Address [address] [place] [address] Care Team Providers Care Metal Mover Name Role Phone Silvia Robison M.D. Primary Care Provider Reason for Visit * Reason Comments Med Refill Encounter Details Date Type Department Care Team (Late st Contact Info) Description 01/09/2025 Refill Department of Family Medicine, [facility], in [place], [place] [address] [place] [phone] Silvia Robison M.D. [address] [place] [phone] Med Refill Social History Tobacco Use [...] things needed for daily living? No 12/24/2024 [facility] Utilities Answer Date Recorded In the past 12 months has e electric, gas, oil, or water [employer] threatened to shut off services in your home? Patient declined 12/24/2024 Depression Answer Date Recor ded PHQ-9 Total Score (max 27) 11 10/23 Housing Stability Answer Date Recorded What is your living situatio n today? I do not have a steady place to live (I am temporarily staying with others, in a hotel, in a assisted, living outside on the street, on a [...] CDT Gender Identity Male 05/21/2020 12:19 PM OFFICE SERVICES MANAGER Sexual Orientation Straight 07/10/2017 5: 27 PM CDT documented as of this encounter Plan of Treatment Upcoming Encounters Date Type Department Care Team (Latest Contact Info) Description 01/29/2025 2:00 PM CDT Comprehensive Visit Department of Physical Medicine and Rehabilitation in [place], [place] [address] [place], [place] [phone] Ashli Kincaid APRN, C.N.P., M.S.N. [address] [place] [phone] Imtiaz Barker M.S., P.T., D.P.T. [address] [place] [phone] 02/02/2025 10:00 AM CDT Clinical Support Department of Physical Medicine and Rehabilitation in [place], [place] [address] [place] [phone] Alexys Mensah M.B.B.S. [address] [place] [phone] Linda Parra C.HLavonne., O.T. [address] [place] [phone] 02/03/2025 2:00 PM CDT Clinical Support Department of Physical Medicine and Rehabilitation in [place], [place] [address] [place] [phone] Ashli Kincaid APRN, C.N.P., M.S.N. [address] [place] [phone] Imtiaz Barker M.S., P.T., D.P.T. [address] [place] [phone] 02/09/2025 4:00 PM CDT Comprehensive Visit Department of Physical Medicine and Rehabilitation in [place], [place] [address] [place] [phone] Ashli Kincaid APRN, C.N.P., M.S.N. [address] [place] [phone] Julián Luz M.A., O.T. [address] [place] [phone] 02/22/2025 10:00 AM OFFICE SERVICES MANAGER Clinical Support Department of Physical Medicine and Rehabilitation in [place], [place] [address] [place] [address] Ashli Kincaid APRN, C.NMago., M.S.N. [address] [place] [phone] Julián Luz M.A., O.T. [address] [place] [phone] 03/15/2025 10:00 AM OFFICE SERVICES MANAGER Appointment Department of Radiology, [facility], in [place], [place] [address] [place] [phone] Renee Lassiter M.D. [address] [place] [phone] Discharge Disposition: Home or Self Care 03/15/2025 10:30 AM OFFICE SERVICES MANAGER Office Visit Department of Orthopedic Surgery in [place], [place] [address] [place] [phone] Alexys Mensah M.B.B.S. [address] [place] [phone] 03/15/2025 11:00 AM OFFICE SERVICES MANAGER Clinical Support Department of Physical Medicine and Rehabilitation in [place], [place] [address] [place] [phone] Alexys Mensah M.B.B.S. [address] [place] [phone] Carlos Perez C.H.T., O.T. [address] [place] [phone] 03/15/2025 1:00 PM OFFICE SERVICES MANAGER Office Visit Section of Preventive, Transportation and Occupational Medicine in [place], [place] [address] [place] [phone] Ashli Kincaid APRN, C.N.P., M.S.N. [address] [place] [phone] documented as of this encounter Visit Diagnoses Not on filedocumented in this encounter Additional Health Concerns Assessment Noted Time PHQ-9 Depression Total Score: 11 025 6:47 AM CDT documented as of this encounter Care Teams Metal Mover Relationship Specialty Start Date End Date Silvia Robison M.D. [address] [place] [phone] PCP - General Family Medicine 10/03/23 documented as of this encounter
--- OUTSIDE RECORDS SUMMARY | 2025-01-23 06:36 | XMS_ITS | Encounter Summary ---
Author Organization [facility] Address [address] [place] [address] Care Team Providers Care Licensing Officer Name Role Phone Silvia Robison M.D. Primary Care Provider Encounter Details Date Type Department Care Team (Late st Contact Info) Description 01/07/2025 Clinical Communication Department of Family Medicine, [facility], in [place], [place] [address] [place] [phone] Silvia Robison M.D. [address] [place] [phone] Social History Tobacco Use Types Packs/Day [...] needed for daily living? No 12/24/2024 [facility] Utilities Answer Date Recorded In the past 12 months has e [employer], gas, oil, or water [employer] threatened to shut off services in your home? Patient declined 12/24/2024 Depression Answer Date Recor ded PHQ-9 Total Score (max 27) 11 10/23 Housing Stability Answer Date Recorded What is your living situatio n today? I do not have a steady place to live (I am temporarily staying with others, in a hotel, in a long-term, living outside on the street, on a [...] CDT Gender Identity Male 05/21/2020 12:19 PM FIELD INVESTIGATOR Sexual Orientation Straight 07/10/2017 5: 27 PM CDT documented as of this encounter Plan of Treatment Upcoming Encounters Date Type Department Care Team (Latest Contact Info) Description 01/29/2025 2:00 PM CDT Comprehensive Visit Department of Physical Medicine and Rehabilitation in [place], [place] [address] [place] [phone] Ashli Kincaid APRN, C.N.P., M.S.N. [address] [place] [phone] Imtiaz Barker M.S., P.T., D.P.T. [address] [place] [phone] 02/02/2025 10:00 AM CDT Clinical Support Department of Physical Medicine and Rehabilitation in [place], [place] [address] [place] [phone] Alexys Mensah M.B.B.S. [address] [place] [phone] Linda Parra C.H.T., O.T. [address] [place] [phone] 02/03/2025 2:00 PM CDT Clinical Support Department of Physical Medicine and Rehabilitation in [address] [phone] Ashli Kincaid APRN, C.N.P., M.S.N. [address] [place] [phone] Imtiaz Barker M.S., P.T., D.P.T. [address] [place] [phone] 02/09/2025 4:00 PM CDT Comprehensive Visit Department of Physical Medicine and Rehabilitation in [address] [phone] Ashli Kincaid APRN, C.N.P., M.S.N. [address] [place] [phone] Julián Luz M.A., O.T. [address] [place] [phone] 02/22/2025 10:00 AM FIELD INVESTIGATOR Clinical Support Department of Physical Medicine and Rehabilitation in [place], [place] [address] [place] [address] Ashli Kincaid APRN, C.N.P., M.S.N. [address] [place] [phone] Julián Luz M.A., O.T. [address] [place] [phone] 03/15/2025 10:00 AM FIELD INVESTIGATOR Appointment Department of Radiology, [facility], in [place], [place] [address] [place] [phone] Renee Lassiter M.D. [address] [place] [phone] Discharge Disposition: Home or Self Care 03/15/2025 10:30 AM FIELD INVESTIGATOR Office Visit Department of Orthopedic Surgery in [place], [place] [address] [place] [phone] Aelxys Mensah M.B.B.S. [address] [place] [phone] 03/15/2025 11:00 AM FIELD INVESTIGATOR Clinical Support Department of Physical Medicine and Rehabilitation in [place], [place] [address] [place] [phone] Alexys Mensah M.B.B.S. [address] [place] [phone] Carlos Perez, MikelH.T., O.T. [address] [place] [phone] 03/15/2025 1:00 PM FIELD INVESTIGATOR Office Visit Section of Preventive, Transportation and Occupational Medicine in [place], [place] [address] [place] [phone] Ashli Kincaid APRN, C.NSammP., M.S.N. [address] [place] [phone] documented as of this encounter Visit Diagnoses Diagnosis Diabetes Mellitus Type 2 Without Complication (HCC)- Primary documented in this encounter Additional Health Concerns Assessment Noted Time PHQ-9 Depression Total Score: 11 025 6:47 AM CDT documented as of this encounter Care Teams Licensing Officer Relationship Specialty Start Date End Date Silvia Robison M.D. [address] [place] [phone] PCP - General Family Medicine 10/03/23 documented as of this encounter
--- OUTSIDE RECORDS SUMMARY | 2025-01-23 06:36 | XMS_ITS | Encounter Summary ---
Author Organization [facility] Address [address] [place] [address] Care Team Providers Care Ultrasound Tester Name Role Phone Silvia Robison M.D. Primary Care Provider Encounter Details Date Type Department Care Team (Late st Contact Info) Description 12/08/2024 Orders Only Department of Orthopedic Surgery in [place], [place] [address] [place] [phone] Emily Olivarez M.D. [address] [place] [phone] Fracture Hand Multiple Closed Initial Left (Primary [...] things needed for daily living? No 11/10/2024 [facility] Utilities Answer Date Recorded In the past 12 months has [facility] electric, gas, oil, or water [employer] threatened to shut off services in your [...] CDT Gender Identity Male 05/21/2020 12:19 PM HOUSING GRANT ANALYST Sexual Orientation Straight 07/10/2017 5: 27 PM CDT documented as of this encounter Plan of Treatment Upcoming Encounters Date Type Department Care Team (Latest Contact Info) Description 01/29/2025 2:00 PM CDT Comprehensive Visit Department of Physical Medicine and Rehabilitation in [place], [place] [address] [place] [address] [place] [address] Ashli Kincaid, SUYAPA, C.N.P., M.S.N. [address] [place] [phone] Imtiaz Barker M.S., P.T., D.P.T. [address] [place] [phone] 02/02/2025 10:00 AM CDT Clinical Support Department of Physical Medicine and Rehabilitation in [place], [place] [address] [place] [phone] Alexys Mensah M.B.B.S. [address] [place] [phone] Linda Parra C.H.T., O.T. [address] [place] [phone] 02/03/2025 2:00 PM CDT Clinical Support Department of Physical Medicine and Rehabilitation in [address] [phone] Ashli Kincaid APRN, Yelitza.N.Breonna., M.S.N. [address] [place] [phone] Imtiaz Barker M.S., P.T., D.P.T. [address] [place] [phone] 02/09/2025 4:00 PM CDT Comprehensive Visit Department of Physical Medicine and Rehabilitation in [place], [place] [address] [place] [phone] Ashli Kincaid APRN C.N.P., M.S.N. [address] [place] [phone] Julián Luz M.A., O.T. [address] [place] [phone] 02/22/2025 10:00 AM HOUSING GRANT ANALYST Clinical Support Department of Physical Medicine and Rehabilitation in [place], [place] [address] [place] [address] Ashli Kincaid APRN, C.N.P., M.S.N. [address] [place] [phone] Julián Luz M.A., O.T. [address] [place] [phone] 03/15/2025 10:00 AM HOUSING GRANT ANALYST Appointment Department of Radiology, [facility], in [place], [place] [address] [place] [phone] Renee Lassiter M.D. [address] [place] [phone] Discharge Disposition: Home or Self Care 03/15/2025 10:30 AM HOUSING GRANT ANALYST Office Visit Department of Orthopedic Surgery in [place], [place] [address] [place] [phone] Alexys Menash M.B.B.S. [address] [place] [phone] 03/15/2025 11:00 AM HOUSING GRANT ANALYST Clinical Support Department of Physical Medicine and Rehabilitation in [place], [place] [address] [place] [phone] Alexys Mensah M.B.B.S. [address] [place] [phone] Carlos Perez C.H.Thad., O.T. [address] [place] [phone] 03/15/2025 1:00 PM HOUSING GRANT ANALYST Office Visit Section of Preventive, Transportation and Occupational Medicine in [place], [place] [address] [place] [phone] Ashli Kincaid APRN, C.N.P., M.S.N. [address] [place] [phone] documented as of this encounter Visit Diagnoses Diagnosis Fracture Hand Multiple Closed Initial Left- Primary documented in this encounter Additional Health Concerns Assessment Noted Time PHQ-9 Depression Total Score: 11 025 6:47 AM CDT documented as of this encounter Care Teams Ultrasound Tester Relationship Specialty Start Date End Date Silvia Robison M.D. [address] [place] [phone] PCP - General Family Medicine 10/03/23 documented as of this encounter
--- OUTSIDE RECORDS SUMMARY | 2025-01-23 06:36 | XMS_ITS | Clinical Summary ---
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 Primary Care Provider Source Comments Patient records contain information from all sites at [facility]. For routine questions regarding patient records, call [phone] during business hours, M-F 8:00 AM - 5:00 PM Central Time. Record requests for emergency care only can be directed to [phone] at any time.[facility] Allergies Active Allergy Reactions Criticality Noted Date Comments Coconut Anaphylaxis High 01/05/2017 Coconut Fatty Acid Diethanolamide Anaphylaxis High 01/05/2017 Fentanyl Hives (Reselect Reaction),Nausea And Vomiting Medium 01/05/2017 Morphine GI intolerance,Nause a And Vomiting,Other (see comments),Hives (Reselect Reaction) High 01/05/2017 Nalbuphine Hives (Reselect Reaction) Medium 01/05/2017 Sulfamethoxazole-Trimethopri m Other (see comments) Medium 12/27/2020 Welts Sulfa (Sulfonamide Antibiotics) Itching 01/05/2017 Medications * This document contains information received from the source organization and may not represent a complete record from that organization. sodium chloride (SALINE NASAL MIST NASAL) Administer into nostril(s) daily as needed. For nasal congestion Active blood-glucose meter misc Test as directed for diabetes control. 1 each 021 Active blood sugar diagnostic strips 2 test daily. 200 test 3 023 Active sildenafiL (Viagra) 100 mg tablet Take 1 tablet (100 mg total) by mouth daily as needed for erectile dysfunction. 10 tablet 1 025 Active pantoprazole (Protonix) 40 mg EC tablet Take 1 tablet (40 mg total) by mouth 2 (two) times a day before morning and evening meals. 180 tablet 3 Active meloxicam (Mobic) 15 mg tabletIndications :Pain Back,Pain Leg Right Take 1 tablet (15 mg total) by mouth daily. 90 tablet 3 025 Active gabapentin (Neurontin) 300 mg capsuleIndication s:Neuropathy Take 1 capsule in the morning, 2 capsules in the afternoon and 3 at bedtime 180 capsule 11 025 Active semaglutide (Ozempic) 0.25 mg or 0.5 mg (2 mg/3 mL) injectionIndicati ons:Diabetes Mellitus Type 2 Without Complication (HCC) Inject 0.5 mg under the skin every 7 (seven) days. 9 mL 025 2025 Active allopurinoL (Zyloprim) 100 mg tablet Take 1 tablet by mouth twice daily 180 tablet 3 025 Active atorvastatin (Lipitor) 20 mg tablet Take 1 tablet by mouth once daily 90 tablet 3 025 Active cloNIDine (Catapres) 0.1 mg tablet Take 1 tablet by mouth twice daily 180 tablet 3 025 Active Jardiance 25 mg tabletIndications :Diabetes Mellitus Type 2 Hyperglycemia (HCC) TAKE 1 TABLET BY MOUTH ONCE DAILY BEFORE MEAL(S) IN THE MORNING 90 tablet 025 Active labetaloL 200 mg tablet Take 1 tablet by mouth twice daily 180 tablet 3 025 Active lisinopriL 40 mg tablet Take 1 tablet by mouth once daily 90 tablet 3 025 Active metFORMIN XR (Glucophage-XR) 500 mg 24 hr tablet Take 2 tablets by mouth twice daily 360 tablet 025 Active sennosides (Senokot) 8.6 mg tablet Take 1 tablet (8.6 mg total) by mouth 2 (two) times a day. Continue taking daily until no longer requiring prescription pain medications Active oxyCODONE (Roxicodone) 5 mg immediate release tabletIndications :Acute Pain Take 1 tablet (5 mg total) by mouth every 6 (six) hours as needed for pain Indication: Acute Pain. 5 tablet Active ondansetron ODT (Zofran-ODT) 4 mg disintegrating tablet Dissolve 1 tablet (4 mg total) in the mouth every 6 (six) hours as needed for nausea or vomiting. 6 tablet Active traMADoL (Ultram) 50 mg tabletIndications :Acute Pain Indications: Acute Pain. 1 tab every 6 hours as needed for pain 6 tablet Active acetaminophen (TylenoL 8 Hr) 650 mg ER tablet Take 650 mg by mouth every 8 (eight) hours. Active insulin glargine (Lantus Solostar U-100 Insulin) 100 unit/mL (3 mL) penIndications:Di abetes Mellitus Type 2 Without Complication (HCC) Inject 42 Units under the skin at bedtime. Injected daily as directed. 37.8 mL 3 025 2025 Active amLODIPine (Norvasc) 10 mg tablet Take 1 tablet by mouth once daily 90 tablet 3 Active buPROPion XL (Wellbutrin XL) 150 mg 24 hr tablet TAKE 1 TABLET BY MOUTH ONCE DAILY IN THE MORNING . APPOINTMENT REQUIRED FOR FUTURE REFILLS 90 tablet Active amLODIPine (Norvasc) 10 mg tablet Take 1 tablet by mouth once daily 90 tablet 3 024 2024 Discontinued Lashayglnadja,insulin glargine-yfgn, 100 unit/mL vial Inject 42 Units under the skin daily. Take once daily in the morning. Dose adjust as directed 2024 Discontinued(R eorder) acetaminophen (TylenoL) 500 mg tablet Take 2 tablets (1,000 mg total) by mouth every 6 (six) hours for 30 days. Take 2 tablets every 6 hours. 025 2024 Discontinued(D uplicate order) acetaminophen (TylenoL) 500 mg tablet Take 2 tablets (1,000 mg total) by mouth every 6 (six) hours as needed for pain, fever, mild pain or score 1-3 of 10 or headaches. for pain; Can purchase over the counter; Maximum acetaminophen should not exceed 4,000 mg in 24 hours from all sources. 025 2024 Discontinued(T herapy completed) buPROPion XL (Wellbutrin XL) 150 mg 24 hr tablet Take 1 tablet (150 mg total) by mouth every morning. Needs an appointment for further refills 90 tablet 025 2024 Discontinued amoxicillin-pot clavulanate (Augmentin) 875-125 mg per tabletIndications :Sinusitis Acute Take 1 tablet by mouth 2 (two) times a day for 7 days. 14 tablet 025 2024 Discontinued amoxicillin-pot clavulanate (Augmentin) 875-125 mg per tabletIndications :Acute Recurrent Ethmoidal Sinusitis Take 1 tablet by mouth 2 (two) times a day for 7 days. 14 tablet 025 2024 Semglee,insulin glargine-yfgn, 100 unit/mL vialIndications:D iabetes Mellitus Type 2 Without Complication (HCC) Inject 42 Units under the skin daily. Take once daily in the morning. Dose adjust as directed 37.8 mL 3 025 2024 Discontinued(T herapy completed) semaglutide (Wegovy) 1 mg/0.5 mL pen injector injection Inject 1 mg under the skin every 7 (seven) days. 2 mL 025 2024 Discontinued(T herapy completed) Hospital, Clinic, or Other Facility Administered Medication Ordered Dose Route Frequency Start Date End Date Status lidocaine-EPINEPHrine 1 %-1:100,000 injection 10 mL (Xylocaine w/epi)Indications:Fracture Wrist And Hand Other Open Initial Left 10 mL Ifil Once 01/12/2025 Active Active Problems Problem Noted Date Diagnosed Date Pain Wrist Right 11/24/2024 Fracture Hand Multiple Closed Initial Left 11/10 Chronic Kidney Disease (CKD) , Stage 3a Glomerular Filtration Rate (GFR) 45 To 59 06/15/2024 Albuminuria 09/07/2022 Dizziness 06/22/2022 Overview (06/22/2022): Being worked up by HTN clinic. Recommended autonomic screening. Patient has not scheduled yet Elevated Liver Enzyme Test 05/17/2022 Overview (05/17/2022): -noted on previous lab draws versus dating back to 2019 Assessment & Plan (05/17/2022 5:03 PM LEAF STRIPPER): -continue to monitor. -consider liver ultrasound to [...] gout Assessment & Plan (05/17/2022 4:58 PM LEAF STRIPPER): -Blood pressures in clinic were at goal today -Continue to monitor. Depressive Disorder 05/17/2022 Overview (05/17/2022): 22 April 2022: PHQ = 24 -patient tells me he has previously been on Paxil, lithium, Trileptal and was diagnosed with bipolar in [place]. -many acute stressors such as needing to find new housing, financial stress, and employment stress. Assessment & Plan (05/17/2022 5:16 PM LEAF STRIPPER): -increase Wellbutrin that was previously prescribed for [...] nasal Assessment & Plan (05/17/2022 5:05 PM LEAF STRIPPER): -Will obtain more history at next visit -Consider ENT referral/ CT sinus/maxillofacial Nicotine Dependence Cigarettes In Remission 06/22 Overview (05/17/2022): -Quit smoking 2020 -On Wellbutrin - still smokes but she is involved at Nicotine dependency clinic Assessment & Plan (05/17/2022 4:49 PM LEAF STRIPPER): -Increase Wellbutrin from 150 to 300 in [...] mass. Assessment & Plan (05/17/2022 4:57 PM LEAF STRIPPER): -At one of his emergency department visits [...] 2017 Assessment & Plan (05/17/2022 4:55 PM LEAF STRIPPER): -Continue protonix 40mg BID -At next appointment EGD with biopsy to assess for H pylori -I do wonder there is a component of diabetic gastroparesis playing into symptoms given history of improvement with Reglan Dysfunction Erectile 09/23/2017 Overview (05/17/2022): Previously on Viagra and Cialis. Neuropathy Median Left Overview (07/20/2020): Gabapentin 300 am, 600 pm, 900 HS Meloxicam 15 mg Diabetes Mellitus Type 2 Without Complication Overview (06/22/2022): Currently on Metformin 1 g [...] (07/15/2019): Added automatically from request for surgery [id number] Pain Hand Left 09/24/2017 07/20/2020 Hypertension Essential [...] mg Assessment & Plan (05/17/2022 4:49 PM LEAF STRIPPER): Blood pressure in clinic is well controled today. Continue current management. Carpal Tunnel Syndrome Left 06/18/2017 05/17/2022 Overview (05/17/2022): S/p release in 2017 Limitation Of Motion Hand Joint Left 08/27/2019 Pain Wrist Left 08/27/2019 Encounters Date Type Department Care Team Description 01/22/2025 Refill Department of Family Medicine, [facility], in [place], [place] [address] [place] [phone] Silvia Robison M.D. Med Refill 01/15/2025 Refill Department of Family Medicine, [facility], in [place], [place] [address] [place] [address] Silvia Robison M.D. Med Refill 01/12/2025 1:30 PM CDT Comprehensive Visit Section of Preventive, Transportation and Occupational Medicine in [place], [place] [address] [place] [phone] Ashli Kincaid APRN, C.N.P., M.S.N. Fracture Hand Multiple Closed Initial Left (Primary Dx); Fracture Middle Finger Proximal Phalanx Displaced Sequela Left; Limitation Of Motion Finger Left; Fracture Wrist Closed Initial Right; Pain Wrist Right; Return To Work Status Examination; Injury Shoulder Subsequent Right; Injury Knee Subsequent Right; Injury Ankle Subsequent Right 01/12/2025 11:45 AM CDT Comprehensive Visit Department of Physical Medicine and Rehabilitation in [place], [place] [address] [place] [address] Saba Rogers P.A.-C. La Quinn MSammS., O.T. Fracture Middle Finger Proximal Phalanx Displaced Sequela Left (Primary Dx) 01/12/2025 11:00 AM CDT Office Visit Department of Orthopedic Surgery in [place], [place] [address] [place] [address] Alexys Mensah M.B.B.S. Fracture Middle Finger Proximal Phalanx Displaced Sequela Left (Primary Dx); Fracture Wrist And Hand Other Open Initial Left; Fracture Index Finger Proximal Phalanx Displaced Sequela Left 01/12/2025 9:51 AM CDT - 01/12/2025 11:59 PM CDT Hospital Encounter Department of Radiology, [facility], in [place], [place] [address] [place] [address] Saba Rogers P.A.-CSamm Fracture Hand Multiple Closed Initial Left Discharge Disposition: Home or Self Care 01/09/2025 Refill Department of Family Medicine, [facility], in [place], [place] [address] [place] [address] Silvia Robison M.D. Med Refill 01/08/2025 Orders Only Department of Orthopedic Surgery in [place], [place] [address] [place] [phone] Saba Rogers P.A.-C. 01/07/2025 10:00 AM CDT Clinical Communication Virtual Review in [place], [place] [address] [place] [address] 01/07/2025 Clinical Communication Division of Plastic Surgery in [place], [place] [address] [place] [address] Ailin Rowan M.D. 01/07/2025 Clinical Communication Department of Family Medicine, [facility], in [place], [place] [address] [place] [phone] Silvia Robison M.D. 12/27/2024 12:30 AM CDT Telemedicine [facility] at [address] [phone] Padmini Barrera M.D. Acute Recurrent Ethmoidal Sinusitis (Primary Dx) 12/24/2024 Documentation Department of Orthopedic Surgery in [place], [place] [address] [place] [phone] Saba Rogers P.A.-C. 12/23/2024 Orders Only Department of Orthopedic Surgery in [place], [place] [address] [place] [phone] Chikis Ware, SUYAPA, C.N.P. Fracture Hand Multiple Closed Initial Left (Primary Dx) 12/08/2024 12:00 PM CDT Comprehensive Visit Department of Physical Medicine and Rehabilitation in [place], [place] [address] [place] [phone] Saba Rogers P.A.-C. Deana Ray, C.H.T., O.T. Limitation Of Motion Finger Left (Primary Dx); Fracture Hand Multiple Closed Initial Left 12/08/2024 11:09 AM CDT - 12/08/2024 11:59 PM CDT Hospital Encounter Department of Radiology, [facility], in [place], [place] [address] [place] [phone] Saba Rogers P.A.-C. Fracture Hand Multiple Closed Initial Left; Fracture Wrist Closed Initial Right Discharge Disposition: Home or Self Care 12/08/2024 11:09 AM CDT - 12/08/2024 11:59 PM CDT Hospital Encounter Department of Radiology, [facility], in [place], [place] [address] [place] [phone] Saba Rogers P.A.-C. Fracture Hand Multiple Closed Initial Left; Fracture Wrist Closed Initial Right Discharge Disposition: Home or Self Care 12/08/2024 10:27 AM CDT - 12/08/2024 11:08 AM CDT Hospital Encounter Department of Orthopedic Surgery in [place], [place] [address] [place] [phone] Linda Arboleda P.A.-C. Naylor, Melissa J, P.A.-C. Fracture Hand Multiple Closed Initial Left Discharge Disposition: Home or Self Care 12/08/2024 Orders Only Department of Orthopedic Surgery in [place] [address] [place] [phone] Emily Olivarez M.D. Fracture Hand Multiple Closed Initial Left (Primary Dx) 12/08/2024 Orders Only Department of Orthopedic Surgery in [place], [place] [address] [place] [phone] Saba Rogers P.A.-C. Fracture Hand Multiple Closed Initial Left (Primary Dx); Fracture Wrist Closed Initial Right 12/03/2024 Documentation Department of Orthopedic Surgery in [place], [place] [address] [place] [phone] Saba Rogers P.A.-C. 12/03/2024 Refill Department of Family Medicine, [facility], in [place], [place] [address] [place] [address] Silvia Robison M.D. Med Refill 12/01/2024 Clinical Communication Division of Plastic Surgery in [address] [phone] Renee Lassiter M.D. 11/30/2024 Orders Only Department of Orthopedic Surgery in [place], [place] [address] [place] [address] Saba Rogers P.A.-C. 11/27/2024 Orders Only Department of Orthopedic Surgery in [place], [place] [address] [place] [phone] Saba Rogers P.A.-C. 11/25/2024 Orders Only Department of Orthopedic Surgery in [place], [place] [address] [place] [address] Linda Arboleda P.A.-C. Fracture Hand Multiple Closed Initial Left (Primary Dx) 11/24/2024 11:56 AM CDT - 11/24/2024 11:59 PM CDT Hospital Encounter Department of Radiology, [facility] in [place], [place] [address] [place] [phone] Linda Arboleda P.ASamm-Yelitza. Pain Wrist Right Discharge Disposition: Home or Self Care 11/24/2024 10:41 AM CDT - 11/24/2024 11:55 AM CDT Hospital Encounter Department of Orthopedic Surgery in [address] [phone] Linda Arboleda P.A.-C. Alexys Mensah M.B.B.S. Pain Wrist Right (Primary Dx); Fracture Hand Multiple Closed Initial Left Discharge Disposition: Home or Self Care 11/24/2024 10:40 AM CDT Hospital Encounter Department of Radiology, [facility], in [place], [place] [address] [place] [address] Linda Arboleda P.ASamm-CSamm Fracture Hand Multiple Closed Initial Left Discharge Disposition: Home or Self Care 11/24/2024 Orders Only [facility] Silvia Julio M.D. 11/16/2024 Orders Only Department of Orthopedic Surgery in [place], [place] [address] [place] [address] Saba Rogers P.A.-C. 11/12/2024 8:40 AM CDT Clinical Communication Department of Internal Medicine in [place], [place] [address] [place] [address] Elida Galvan R.N. Post Hospital Follow-up (TCM call completed) Discharge Disposition: Home or Self Care 11/12/2024 Orders Only Department of Orthopedic Surgery in [place], [place] [address] [place] [address] Chikis Ware, Patricia DALEPSamm 11/12/2024 Orders Only Department of Orthopedic Surgery in [place], [place] [address] [place] [address] Linda Arboleda P.A.-C. Fracture Hand Multiple Closed Initial Left (Primary Dx) 11/11/2024 Clinical Communication Department of Orthopedic Surgery in [place], [place] [address] [place] [address] Alexys Mensah M.B.B.S. 11/10/2024 9:20 AM CDT Ancillary Procedure Department of Anesthesiology 11/10/2024 9:13 AM CDT Anesthesia Event [facility] [address] [place] [phone] Elidia Garcia M.D. Sprung, Juraj, M.D., Ph.D. 11/10/2024 9:05 AM CDT - 11/10/2024 11:20 AM CDT Surgery [facility] [address] [place] [phone] Alexys Mensah M.B.B.S. left middle finger proximal phalanx pinning, irrigation & debridement 11/10/2024 12:05 AM CDT Ancillary Procedure Department of Plastic and Reconstructive Surgery 11/10/2024 Ancillary Procedure Department of Plastic and Reconstructive Surgery 11/09/2024 9:50 PM CDT Ancillary Procedure Department of Emergency Medicine 11/09/2024 8:41 PM CDT - 11/11/2024 10:13 AM CDT Hospital Encounter [facility], [facility], Fifth Floor [address] [place] [phone] Regino Orellana P.A.-C. Tylor Hathaway, SUYAPA, C.N.P. Alexys Mensah M.B.B.S. Fracture Hand Multiple Closed Initial Left (Primary Dx); Fracture Wrist And Hand Other Open Initial Left; Fracture Wrist Closed Initial Right Discharge Disposition: Home or Self Care 11/03/2024 Orders Only Department of Pulmonary Medicine in [place], [place] [address] [place] [address] Elgin Love M.D. 10/24/2024 3:53 AM CDT - 10/24/2024 11:59 PM CDT Emergency [facility] [address], [place] [phone] Sinusitis (Primary Dx) Discharge Disposition: Home or Self Care 10/23/2024 6:00 AM CDT E-Visit [facility] [address] [place] [address] Amairani An APRN C.N.P., M.S.N. Express Care Online for Sinus Symptoms (sinusitis) from Last 3 Months Immunizations Immunization Administration Dates Next Due HepA Adult 06/22/2022(Deferred: Patient dec ision) HepB Adult 05/12/2021 07/10/2021 HepB Adult (HEPLISAV-B) 07/20/2020,10/15/2019 PCV20 06/22/2022, 3(Deferred: Patient decision) PPD Test 01/06/2019 RZV (SHINGRIX) 06/15/2024, 3(Deferred: Patient decision) SARS-COV-2 (COVID-19) - PFIZ ER (Discontinued)(12 years [...] Stroke Maternal Grandfather Tashi Proctor Breast cancer (in one breast) Mother Sienna Smith nan Unexplained Mother Sienna Vuong Diabetes Other 1 Grandmother Stroke Other 1 Grandmother Diabetes Other 2 Grandmother Stroke Other 2 Grandmother Stroke Other 3 Grandfather Asthma Paternal Grandmother Joanna Carter Diabetes Paternal Grandmother Joanna Carter Relation Name Status Comments Father Kirk Carter SR. Alive Maternal Grandfather Tashi Proctor Alive Mother Sienna Vuong Alive Other 1 Grandmother Other 2 Grandmother Other 3 Grandfather Paternal Grandmother Joanna Carter Alive Social History Tobacco Use Types Packs/Day Years Used Date Smoking Tobacco: Former Cigarettes 0.6 70.8 0 09/21/1983 - 10/31/2020 Passive Smoke Exposure: Current Smokeless Tobacco: Never Quit: 01/12/2018 Tobacco Cessation:Counseling Given: Not Answered Comments:1 pack per week Alcohol Use Standard [...] things needed for daily living? No 12/24/2024 [facility] Utilities Answer Date Recorded In the past 12 months has [facility] [email or web address], gas, oil, or water [employer] threatened to shut off services in your [...] CDT Gender Identity Male 05/21/2020 12:19 PM LEAF STRIPPER Sexual Orientation Straight 07/10/2017 5: 27 PM CDT Last Filed Vital Signs Vital Sign Reading Time Taken Comments Blood Pressure 168/114 11/11/2024 7:59 AM CDT Pulse 78 11/11/2024 7:59 AM CDT Temperature 36.8 C (98.2 F) 11/11/2024 7:59 AM CDT Respiratory Rate 18 11/11/2024 7:59 AM CDT Oxygen Saturation 96% 11/11/2024 7:59 AM CDT Inhaled Oxygen Concentration - - Weight 125 kg (275 lb 5.7 oz) 11/10/2024 4:45 AM CDT Height 195.6 cm (6' 5) 11/10/2024 4:45 AM CDT Body Mass Index 32.65 11/10/2024 4:45 AM CDT Plan of Treatment Upcoming Encounters Date Type Department Care Team (Latest Contact Info) Description 01/29/2025 2:00 PM CDT Comprehensive Visit Department of Physical Medicine and Rehabilitation in [place], [place] [address] [place] [phone] Ashli Kincaid APRN, C.N.P., M.S.N. [address] [place] [phone] Imtiaz Barker M.S., P.T., D.P.T. [address] [place] [phone] 02/02/2025 10:00 AM CDT Clinical Support Department of Physical Medicine and Rehabilitation in [place], [place] [address] [place] [phone] Alexys Mensah M.B.B.S. [address] [place] [phone] Linda Parra C.HLavonne., O.T. [address] [place] [phone] 02/03/2025 2:00 PM CDT Clinical Support Department of Physical Medicine and Rehabilitation in [place], [place] [address] [place] [phone] Ashli Kincaid APRN, C.N.P., M.S.N. [address] [place] [phone] Imtiaz Barker M.S., P.T., D.P.T. [address] [place] [phone] 02/09/2025 4:00 PM CDT Comprehensive Visit Department of Physical Medicine and Rehabilitation in [place], [place] [address] [place] [phone] Ashli Kincaid APRN, C.N.P., M.S.N. [address] [place] [phone] Julián Luz M.A., O.T. [address] [place] [phone] 02/22/2025 10:00 AM LEAF STRIPPER Clinical Support Department of Physical Medicine and Rehabilitation in [place], [place] [address] [facility] [place] [address] Ashli Kincaid APRN, C.N.P., M.S.N. [address] [place] [phone] Julián Luz M.A., O.T. [address] [place] [phone] 03/15/2025 10:00 AM LEAF STRIPPER Appointment Department of Radiology, [facility], in [place], [place] [address] [place] [phone] Renee Lassiter M.D. [address] [place] [phone] Discharge Disposition: Home or Self Care 03/15/2025 10:30 AM LEAF STRIPPER Office Visit Department of Orthopedic Surgery in [place], [place] [address] [place] [phone] Alexys Mensah M.B.B.S. [address] [place] [phone] 03/15/2025 11:00 AM LEAF STRIPPER Clinical Support Department of Physical Medicine and Rehabilitation in [place], [place] [address] [place] [phone] Alexys Mensah M.B.B.S. [address] [place] [phone] Carlos Perez C.H.T., O.T. [address] [place] [phone] 03/15/2025 1:00 PM LEAF STRIPPER Office Visit Section of Preventive, Transportation and Occupational Medicine in [place], [place] [address] [place] [phone] Ashli Kincaid APRN, C.N.P., M.S.N. [address] [place] [phone] Health Maintenance Due Date Last Done Comments CT Colonography 1972 Cologuard 1972 Colonoscopy 1972 Colorectal Cancer Screening 1972 FIT 1972 Hepatitis C Screening 1972 Lung Cancer Screening 1972 Diabetic Office Visit with Foot Exam 05/17/2023 05/17/2022, 04/18/2020 Diabetic Eye Exam 07/08/2024 07/09/2023, , 07/19/2020 (Performed elsewhere) Zoster Vaccines (2 of 2) 08/10/2024 06/15/2024 COVID-19 Vaccine ( - season) 2024 05/01/2021, 03/03/2021 Influenza Vaccine (#1) 2024 Depression Monitoring (PHQ-9) 02/23/2025 10/23/2024 Hemoglobin A1C 03/15/2025 09/12/2024, 05/24, 12/19/2023, Additional history exists Office Visit for Blood Pressure Check / Re-check 06/15/2025 06/15/2024 Urine Albumin 06/15/2025 06/15/2024, 02/21, 03/29/2022, Additional history exists Visit: Chronic Disease, age 18+ 06/15/2025 06/15/2024, 06/15/2024 Creatinine Level (Kidney Function Test) 11/09/2025 11/09/2024, 10/24/2024, 09/12/2024, Additional history exists Potassium Level 11/09/2025 11/09/2024, 07/0 08/2024, 09/12/2024, Additional history exists Sodium Level 11/09/2025 11/09/2024, 07/0 08/2024, 09/12/2024, Additional history exists Lipid (Cholesterol) Screening 12/18/2028 12/19/2023, 07/09/2023, 06/22/2022, Additional history exists DTaP,Tdap,and Td Vaccines (3 - Td or Tdap) 11/09/2034 11/09/2024, 10/15/2019 Hepatitis B Vaccines Completed 05/12/2021, 07/20/2020, 10/15/2019 Pneumococcal vaccine (50+ years) Completed 06/22/2022 Depression Monitoring (PHQ-9 for quality tracking) Completed 08/19/2024, 06/15/2024 IPV Vaccines Aged Out No longer eligi ble based on patient's age to complete this topic Medical Devices Implanted Type Area Courtesy Driver Device Identifier Shelf Expiration Date Model / Serial / Lot Chips Cancellous 5cc - [id number] Implanted:Qty: 1 on 06/07/2017 Bone or Tissue Other/Legacy - See Implant Description [employer] Description:Device Manufactu rer - [employer]. Body Location - Other. bone for packing defect. Device Status Text - [id number]. Peg Smooth 2.0mm X 18mm Long - Luke [id number] Implanted:Qty: 3 on 06/07/2017 Hardware e.g. 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 Device Status Text - [id number]. Peg Smooth 2.0mm X 20mm Long - Luke [id number] Implanted:Qty: 2 on 06/07/2017 Hardware e.g. 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 Device Status Text - [id number]. Screw-Cortical 3.5mm X 14mm Long - Luke [id number] Implanted:Qty: 3 on 06/07/2017 Hardware e.g. 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 Device Status Text - [id number]. Plate-Distal Volar Lt Short - Luke [id number] Implanted:Qty: 1 on 06/07/2017 Hardware e.g. 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 Device Status Text - [id number]. Screw-Cortical 3.5mm X 15mm Long - Luke [id number] Implanted:Qty: 2 on 06/07/2017 Hardware e.g. 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 Device Status Text - [id number]. Peg Threaded 2.5mm X 20mm Long - Luke [id number] Implanted:Qty: 1 on 06/07/2017 Hardware e.g. 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 Device Status Text - [id number]. Peg Smooth 2.0mm X 22mm Long - Luke [id number] Implanted:Qty: 1 on 06/07/2017 Hardware e.g. 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 Device Status Text - [id number]. Kwire Fix Troc Pt 0.045x4 - [id number] Implanted:Qty: 1 on 11/10/2024 by Alexys Mensah M.B.B.SSamm at [facility] Hardware e.g. pins/screw s/rods [place] [id number] / / Explanted Type Area Courtesy Driver Device Identifier Shelf Expiration Date Model / Serial / Lot Stnt Uret Inl 7fx26 - [id number] Implanted:Qty : 1 on 07/15/2019 by Terry Girard M.D. at [facility] Ureteral Stent C.R.Bard [id number] 05/01/2023 [id number] / / [id number] Procedures Procedure Name Priority Date/Time Associated Diagnosis Comments DX HAND LEFT 3+ VIEWS RAD - Routine (most inpatients and all outpatients) 01/12/2025 10:05 AM CDT Fracture Hand Multiple Closed Initial Left DX HAND LEFT 3+ VIEWS RAD - Routine (most inpatients and all outpatients) 12/08/2024 11:35 AM CDT Fracture Hand Multiple Closed Initial Left Fracture Wrist Closed Initial Right DX WRIST RIGHT PA AND LATERAL WITH TILT LATERAL 3 VIEWS RAD - Routine (most inpatients and all outpatients) 12/08/2024 11:33 AM CDT Fracture Hand Multiple Closed Initial Left Fracture Wrist Closed Initial Right DX WRIST RIGHT 3+ VIEWS RAD - Routine (most inpatients and all outpatients) 11/24/2024 3:48 PM CDT Pain Wrist Right DX HAND LEFT 3+ VIEWS RAD - Routine (most inpatients and all outpatients) 11/24/2024 11:44 AM CDT Fracture Hand Multiple Closed Initial Left GLUCOSE POCT, B Routine 11/11/2024 7:45 AM CDT GLUCOSE POCT, B Routine 11/10/2024 9:50 PM CDT GLUCOSE POCT, B Routine 11/10/2024 6:01 PM CDT GLUCOSE POCT, B Routine 11/10/2024 1:44 PM CDT FL FLUORO LESS THAN 1 HOUR RAD - Routine (most inpatients and all outpatients) 11/10/2024 12:16 PM CDT GLUCOSE POCT, B Routine 11/10/2024 11:12 AM CDT ANESTHESIA REGIONAL BLOCK Routine 11/10/2024 9:21 AM CDT ANESTHESIOLOGY IMAGE EXAM Routine 11/10/2024 9:20 AM CDT ADULT OXYGEN THERAPY Routine 11/10/2024 8:59 AM CDT CLOSED REDUCTION AND PERCUTANEOUS FIXATION HAND/FINGER 11/10/2024 8:53 AM CDT Pain Hand Left ADULT OXYGEN THERAPY Routine 11/10/2024 8:24 AM CDT GLUCOSE POCT, B Routine 11/10/2024 8:[address] HAND LEFT WITHOUT IV CONTRAST RAD - Semiurgent (Fast; most ED patients; some inpatients) 11/10/2024 12:12 AM CDT PLASTIC AND RECON SURGERY IMAGE EXAM Routine 11/10/2024 12:05 AM CDT PLASTIC AND RECON SURGERY IMAGE EXAM Routine 11/10/2024 12:00 AM CDT ETHANOL, S STAT 11/09/2024 11:44 PM CDT EMERGENCY DEPARTMENT IMAGE EXAM Routine 11/09/2024 9:50 PM CDT ACTIVATED PARTIAL THROMBOPLASTIN TIME (APTT), P STAT 11/09/2024 9:34 PM CDT PROTHROMBIN TIME (PT), P STAT 11/09/2024 9:34 PM CDT TYPE AND SCREEN STAT 11/09/2024 9:34 PM CDT BASIC METABOLIC PANEL, S/P STAT 11/09/2024 9:34 PM CDT CBC WITH DIFFERENTIAL, B STAT 11/09/2024 9:34 PM CDT OUTSIDE DX SKELETAL Routine 11/09/2024 4 :50 PM CDT OUTSIDE DX SKELETAL Routine 11/09/2024 4 :45 PM CDT OUTSIDE DX SKELETAL Routine 11/09/2024 4 :40 PM CDT OUTSIDE DX SKELETAL Routine 11/09/2024 4 :35 PM CDT OUTSIDE DX SKELETAL Routine 11/09/2024 4 :30 PM CDT OUTSIDE DX SKELETAL Routine 11/09/2024 4 :[address] NEURO Routine 11/09/2024 4:[address] NEURO Routine 11/09/2024 4:[address] SINUSES WITH IV CONTRAST RAD - Semiurgent (Fast; most ED patients; some inpatients) 10/24/2024 5:39 AM CDT HEMOGLOBIN A1C, B Routine 09/12/2024 2:2 1 PM CDT Diabetes Mellitus Type 2 Without Complication (HCC) ALBUMIN, RANDOM, U Routine 06/15/2024 8: 40 AM LEAF STRIPPER Diabetes Mellitus Type 2 Hyperglycemia (HCC) LIPID PANEL, S Routine 12/19/2023 2:41 PM CDT Dysfunction Erectile from Last 3 Months or Most Recently Relevant to Health Maintenance Results * DX Hand Left 3+ Views (01/12/2025 10:05 AM CDT) Only the most recent of3 resultswithin the time period is included. Anatomical Region Laterality Modality Upper Extremity, Hand, [...] radius.No hardware failure. Demineralization. Saba Rogers P.A.-C. [facility] DIAGNOSTIC IMAGING PROCEDURES Final Result * DX Wrist Right PA and Lateral with Tilt Lateral 3 Views (12/08/2024 11:33 AM CDT) Anatomical Region Laterality Modality Upper Extremity, Wrist, [facility] uloskeletal RST LOS, Musculoskeletal ARZ LOS, Muskuloskeletal [...] priorstudy. Advanced radiocarpal and intercarpal joint degeneration. [id number] CMC and STT joint degeneration. Small heterotopic ossification alongthe dorsal aspect of the distal radius likely represents sequela of dorsal capsular avulsion, unchanged. Saba Rogers P.A.-C. [facility] DIAGNOSTIC IMAGING PROCEDURES Final Result * DX Wrist Right 3+ Views (11/24/2024 3:48 PM CDT) Anatomical Region Laterality Modality Upper Extremity, Wrist, Musc uloskeletal RST LOS, Musculoskeletal ARZ LOS, Muskuloskeletal FLA LOS Right Digit al Radiography Impressions 11/24/2024 12:20 PM CDT Compared to 11/09/2024. 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 Ulna negative variance. Advanced degenerative changes at the STT and 1st CMC joints. MCP synovitis. Degenerative changes at the 1st CMC joint. Erosions on the tip of the ulnar styloid. Narrative 11/24/2024 12:20 PM CDT EXAM: DX HAND LEFT 3+ VIEWS, DX WRIST RIGHT 3+ VIEWS Procedure Note Cecilia Jimenez M.D. - 11/24/2024 EXAM: DX HAND LEFT 3+ VIEWS, DX WRIST RIGHT 3+ VIEWS IMPRESSION: Compared to 11/09/2024. Scapholunate dissociation is present with volartilting of the lunate on the lateral view. Ulna negative variance.Advanced degenerative changes at the STT and 1st CMC joints. MCPsynovitis. Degenerative changes at the 1st CMC joint. Erosions on the tip of the ulnar styloid. us Linda Arboleda P.A.-C. IMG DIAGNOSTIC IMAGING PROCEDURES Final Result * (ABNORMAL) Glucose, POCT (11/11/2024 7:45 AM CDT) Only the most recent of6 resultswithin the time period is included. Glucose, POCT, B 142(H) 70 - 140 mg/dL 11/11/2024 7:56 AM CDT PCLX Site Capillary 11/11/2024 7:56 AM CDT PCLX Blood 11/11/2024 7:45 AM CDT 11/11/2024 7:56 AM CDT us Unknown Provider LAB POCT ORDERABLES-MANUAL Cayla l Result POC [facility] [address] [place] [address], [facility] PCLX [facility] P[facility] [address] [place] [address] * FL Fluoro Less Than 1 Hour (11/10/2024 12:16 PM CDT) Narrative 152 ELICIA ARELLANO RST - 11/10/2024 12:16 PM CDT This exam does not require a radiologist review or interpretation. Please refer to the patient's medical record on this date for clinical details. us Denzel Sanchez M.D. IMG FLUOROSCOPY PROCEDURE S Final Result [address] [facility] ADAN RST * Regional Block (11/10/2024 9:21 AM CDT) Narrative Jona Hines M.D. - 11/10/2024 9:21 AM CDT Jona Hines M.D. 11/10/2024 9:58 AM Regional Block Date/Time: 11/10/2024 9:21 AM Performed by: Lorena Reddy M.D., Ph.D., M.Thierno., Ph.D. Authorized by: Elidia Garcia M.D. Location: OR PROCEDURE DETAILS: Block Indication: primary anesthetic Block Type - Upper extremity: supraclavicular Positioning: supine Laterality: left Block technique: ultrasound guided Ultrasound image guidance used to localize target, identify at risk structures, and dynamically used to direct therapy to the target. Procedure was performed under sterile conditions.Image(s) acquired and saved Injection technique: single injection Needle type: echogenic Gauge: 20G Length: 10 Test dose: yes- negative test dose Incremental injection of local anesthetic with aspiration every:5cc Pain with needle advancement or injection of local anesthetic: no Injected Medications: Injection(s), anesthetic agent(s) and/or steroid; See MAR UNIVERSAL PROTOCOL All relevant documentation and testing were reviewed and available. All required blood products, implants, devices and or special equipment were made available as applicable. Pre-procedure verification was conducted and the correct site was marked if required. A fire risk and smoke assessment were done as applicable. The procedural time-out to verify correct patient, correct side/site, and procedure was conducted prior to performing the procedure and confirmed in a procedural pause. PRE-PROCEDURE DETAILS: Appropriate hand hygiene, gown, cap, mask, protective eyewear, sterile gloves, skin preparation, sterile drape, and strict aseptic technique were utilized as applicable for the procedure.: yes Skin prep: chlorhexidine / alcohol SEDATION / ANESTHESIA Anesthesia method: local infiltration Local infiltrate type: lidocaine POST-PROCEDURE DETAILS: Procedure completed successfully: successful procedure Notable Events: none ATTESTATION STATEMENT A resident or fellow participated in the procedure, and the change consultant was present for the entire procedure. Elidia Garcia M.D. PROCEDURE/MINOR SURGICAL ORD ERABLES Final Result * Non-Radiology Image-Anesthesiology Image Exam (11/10/2024 9:20 AM CDT) 11/10/2024 9:16 AM CDT Narrative IIM[facility] - 11/10/2024 9:35 AM CDT This order has been created and auto-finalized to support the import of images acquired without order. The clinical documentation to support these images can be found on the encounter that produced images. Provider Not In System IMG NON RAD IMAGING PROCE DURES Final Result [facility] NA * CT Hand Left without IV Contrast (11/10/2024 12:12 AM CDT) Anatomical Region Laterality Modality Upper Extremity, Hand, Muscu loskeletal RST LOS, Musculoskeletal ARZ LOS, Muskuloskeletal FLA LOS Left Computed Tomography, Compute d Tomography Impressions 11/10/2024 7:37 AM CDT Acute comminuted mildly displaced open intra-articular fracture of the left hand 1st distal phalangeal base with mild angulation and a dorsal soft tissue injury with emphysema. Acute comminuted mildly displaced and angulated intra-articular fractures of the 2nd, 3rd, and 5th proximal phalangeal bases. Acute essentially nondisplaced and slightly angulated extra-articular fracture of the 2nd distal phalanx. Acute comminuted and mildly displaced fracture of the 3rd tuft and intra- articular fractures of the distal and middle phalangeal bases. Additional acute ossific fragment adjacent to the ulnar aspect of the 3rd DIP and PIP joints. Acute comminuted and displaced open fracture of the 4th tuft with an associated soft tissue injury, radiopaque foreign bodies, and emphysema. Acute comminuted and essentially nondisplaced intra-articular fracture of the 4th distal phalangeal base. Acute comminuted, impacted, and mildly displaced intra-articular fracture of the 4th metacarpal head/neck with mild foreshortening and palmar angulation of the dominant distal fracture fragments. Degenerative arthritis left hand and wrist, greatest at the 1st CMC joint. Radial subluxation of the 1st metacarpal base relative to the trapezium. Intra- articular osteochondral bodies 1st CMC joint. VISI stance. Healed comminuted distal radius fracture deformity with volar plate and screw fixation. No hardware failure or loosening. Ununited ossific fragments along the dorsal radius and adjacent to the ulnar styloid. Wrist joint effusion and/or synovitis. Soft tissue swelling about the hand. Narrative 11/10/2024 7:37 AM CDT EXAM: CT HAND LEFT WITHOUT IV CONTRAST No 3D post-processing performed. COMPARISON: Outside left hand radiographs 11/09/[address] 06/16/2022. Procedure Note Nj Bauer M.D. - 11/10/2024 EXAM: CT HAND LEFT WITHOUT IV CONTRAST No 3D post-processing performed. COMPARISON: Outside left hand radiographs 11/09/[address]06/16/2022. IMPRESSION: Acute comminuted mildly displaced open intra-articular fracture of theleft hand 1st distal phalangeal base with mild angulation and a dorsalsoft tissue injury with emphysema. Acute comminuted mildly displaced and angulated intra-articular fracturesof the 2nd, 3rd, and 5th proximal phalangeal bases. Acute essentially nondisplaced and slightly angulated extra-articularfracture of the 2nd distal phalanx. Acute comminuted and mildly displaced fracture of the 3rd tuft andintra- articular fractures of the distal and middle phalangeal bases.Additional acute ossific fragment adjacent to the ulnar aspect of the 3rdDIP and PIP joints. Acute comminuted and displaced open fracture of the 4th tuft with anassociated soft tissue injury, radiopaque foreign bodies, and emphysema.Acute comminuted and essentially nondisplaced intra-articular fracture ofthe 4th distal phalangeal base. Acute comminuted, impacted, and mildly displaced intra-articular fracture of the4th metacarpal head/neck with mild foreshortening and palmar angulation ofthe dominant distal fracture fragments. Degenerative arthritis left hand and wrist, greatest at the 1st CMC joint.Radial subluxation of the 1st metacarpal base relative to the trapezium.Intra-articular osteochondral bodies 1st CMC joint. VISI stance. Healedcomminuted distal radius fracture deformity with volar plate and screw fixation. No hardware failure orloosening. Ununited ossific fragments along the dorsal radius and adjacentto the ulnar styloid. Wrist joint effusion and/or synovitis. Soft tissueswelling about the hand. us Regino Orellana P.A.-C. IMG CT PROCEDURES Final Re sult * [id number]-[id number]-Vlocxjh And Recon Surgery Image Exam (11/10/2024 12:05 AM CDT) Only the most recent of2 resultswithin the time period is included. Narrative [facility]IM[facility] - 11/10/2024 4:27 PM CDT This order has been created and auto-finalized to support the import of images acquired without order. The clinical documentation to support these images can be found on the encounter that produced images. us Provider Not In System IMG NON RAD IMAGING PROCE DURES Final Result [facility] NA * Ethanol Level, Serum (11/09/2024 11:44 PM CDT) Ethanol, S <10 <10 mg/dL 11/10/2024 12:31 AM CDT DTL Blood (Blood, Venous) 11/09/2024 11:44 PM CDT 11/10/2024 12:05 AM CDT us Jonathan Live M.D. LAB BLOOD NON ADD-ON Fi nal Result [facility] [address] [place] [address], [facility] DTL [facility] [address] [place] [address] * Hand-Emergency Department Image Exam (11/09/2024 9:50 PM CDT) 11/09/2024 9:49 PM CDT Narrative IIMS - 11/09/2024 9:51 PM CDT This order has been created and auto-finalized to support the import of images acquired without order. The clinical documentation to support these images can be found on the encounter that produced images. us Provider Not In System IMG NON RAD IMAGING PROCE DURES Final Result Performing Organization Address [facility] Co de Phone Number II NA * APTT (Activated Partial Thromboplastin Time) (11/09/2024 9:34 PM CDT) Activated Partial Thrombopl Time, P 27 25 - 37 sec 11/09/2024 10:45 PM CDT [facility] Blood (Blood, Venous) 11/09/2024 9:34 PM CDT 11/09/2024 9:42 PM CDT Regino Orellana P.A.-C. LAB BLOOD ADD-ON Final Res ult Performing Organization Address [facility] [place] [address], [place] [address] * Prothrombin Time (PT) (11/09/2024 9:34 PM CDT) Prothrombin Time, P 10.9 9.4 - 12.5 sec 11/09/2024 10:42 PM CDT STMA INR 1.0 0.9 - 1.1 11/09/2024 10:42 PM CDT ST[facility] Comment: ----ADDITIONAL INFORMATION---- Standard intensity warfarin therapeutic range: 2.0 to 3.0 High intensity warfarin therapeutic range: 2.5 to 3.5 Blood (Blood, Venous) 11/09/2024 9:34 PM CDT 11/09/2024 9:42 PM CDT Regino Orellana P.A.-C. LAB BLOOD ADD-ON Final Res ult [facility] [address] [place] [address], [place] STMA [facility] [address] [place] [address] * (ABNORMAL) CBC with Differential, Blood (11/09/2024 9:34 PM CDT) Hemoglobin 14.0 13.2 - 16.6 g/dL 11/09/2024 9:46 PM CDT STMA Hematocrit 42.0 38.3 - 48.6 % 11/09/2024 9:46 PM CDT [facility]MA Erythrocytes 4.77 4.35 - 5.65 x10(12)/L 11/09/2024 9:46 PM CDT [facility] MCV 88.1 78.2 - 97.9 fL 11/09/2024 9:46 PM CDT STMA RBC Distrib Width 13.8 11.8 - 14.5 % 11/09/2024 9:46 PM CDT [facility] Platelet Count 270 135 - 317 x10(9)/L 11/09/2024 9:46 PM CDT [facility] Leukocytes 12.8(H) 3.4 - 9.6 x10(9)/L 11/09/2024 9:46 PM CDT [facility] Neutrophils 8.84(H) 1.56 - 6.45 x10(9)/L 11/09/2024 9:46 PM CDT [facility] Lymphocytes 2.47 0.95 - 3.07 x10(9)/L 11/09/2024 9:46 PM CDT [facility] Monocytes 1.02(H) 0.26 - 0.81 x10(9)/L 11/09/2024 9:46 PM CDT [facility] Eosinophils 0.46 0.03 - 0.48 x10(9)/L 11/09/2024 9:46 PM CDT [facility] Basophils 0.05 0.01 - 0.08 x10(9)/L 11/09/2024 9:46 PM CDT [facility] Blood (Blood, Venous) 11/09/2024 9:34 PM CDT 11/09/2024 9:42 PM CDT us Regino Orellana P.A.-C. LAB BLOOD ADD-ON Final Res ult [facility] [address] [place] [address], [facility] STMA [place] [address] [place] [address] DHPM [facility] [address] [place] [address] * Type and Screen (with Reflex Antibody ID) (11/09/2024 9:34 PM CDT) [facility] ABORh A Neg Not applicable 11/09/2024 10:04 PM CDT STRM Antibody Screen Negative Negative 11/09/2024 10:18 PM CDT STRM Type & Screen Expiration 11/12/2024 23:59 11/09/2024 10:04 PM CDT STRM Testing Location Elinor DEFAULT 11/09/2024 9:40 PM CDT STRM Blood (Blood, Venous) 11/09/2024 9:34 PM CDT 11/09/2024 9:40 PM CDT us Regino Orellana P.A.-C. LAB BLOOD BANK TEST ORDERA BLES Final Result Performing Organization Address City/[facility]/ZIP Co de Phone Number [facility] [address] [place] [address], [facility] STRM [facility] [address] [place] [address] * (ABNORMAL) Basic Metabolic Panel (11/09/2024 9:34 PM CDT) [facility] Potassium, P 4.4 3.6 - 5.2 mmol/L 11/09/2024 10:03 PM CDT STMA Sodium, P 138 135 - 145 mmol/L 11/09/2024 10:03 PM CDT STMA Chloride, P 103 98 - 107 mmol/L 11/09/2024 10:03 PM CDT STMA Bicarbonate, P 20(L) 22 - 29 mmol/L 11/09/2024 10:03 PM CDT ST[facility] Anion Gap, P 15 7 - 15 11/09/2024 10:03 PM CDT STMA BUN (Blood Urea Nitrogen), P 17 8 - 24 mg/dL 11/09/2024 10:03 PM CDT STMA Creatinine 1.03 0.74 - 1.35 mg/dL 11/09/2024 10:03 PM CDT STMA Estimated GFR (eGFR) 87 >=60 mL/min/BSA 11/09/2024 10:03 PM CDT STMA Comment: Estimated GFR calculated using the 2020 CKD_EPI creatinine equation. Calcium, Total, P 9.4 8.6 - 10.0 mg/dL 11/09/2024 10:03 PM CDT STMA Glucose, P 113 70 - 140 mg/dL 11/09/2024 10:03 PM CDT STMA Blood (Blood, Venous) 11/09/2024 9:34 PM CDT 11/09/2024 9:42 PM CDT Regino Orellana P.A.-C. LAB BLOOD ADD-[place] [address], [place] [address] * XR SHOULDER 2+ VIEWS RIGHT-Outside Skeletal Xray (11/09/2024 4:50 PM CDT) Only the most recent of6 resultswithin the time period is included. 11/09/2024 4:26 PM CDT Narrative IIMS - 11/09/2024 5:39 PM CDT This order has been created and auto-finalized to support the import of outside images. If available, original interpretation can be found on the Media Tab in Chart Review, in Document Viewer, as an image in InfinityView or as an Addendum. If a re-interpretation or overread is required please follow defined workflow. us Provider Not In System IMG DIAGNOSTIC IMAGING NC OCEDURES Final Result [facility] NA * CT CERVICAL SPINE WO CONTRAST-Outside CT Neuro (11/09/2024 4:20 PM CDT) Only the most recent of2 resultswithin the time period is included. 11/09/2024 4:12 PM CDT Narrative IIMS - 11/09/2024 5:54 PM CDT This order has been created and auto-finalized to support the import of outside images. If available, original interpretation can be found on the Media Tab in Chart Review, in Document Viewer, as an image in InfinityView or as an Addendum. If a re-interpretation or overread is required please follow defined workflow. us Provider Not In System IMG CT PROCEDURES Final R esult [facility] NA * CT Sinuses with IV Contrast (10/24/2024 5:39 AM CDT) Anatomical Region Laterality Modality Head, Neuroradiology RST LOS , Neuroradiology ARZ LOS, Neuroradiology FLA LOS N/A Computed Tomography Impressions 10/24/2024 5:45 AM CDT Findings are consistent of mild acute paranasal sinusitis, acute left mastoiditis, and left otitis media. Narrative 10/24/2024 5:45 AM CDT EXAM: CT SINUSES WITH IV CONTRAST COMPARISON: 09/02/2023 FINDINGS: No acute intracranial hemorrhage. No abnormal intracranial mass or fluid collection. The brain is normal in attenuation and morphology for patient's age. Sulci are normal flu within the left mastoid air cells and middle ear. Edematous thickening of the soft tissues along the left external auditory canal. Small amount of frothy secretions in the right maxillary sinus. Moderate bilateral maxillary sinus mucosal thickening. Otherwise mild scattered paranasal sinus mucosal thickening. Minimal paranasal sinus chronic bony remodeling, predominantly involving the left maxillary sinus. No aggressive osseous lesion or abnormal enhancing soft tissue mass. Visualized portions of the orbits, calvarium and skull base are unremarkable. Procedure Note Shahid Lacy M.D. - 10/24/2024 EXAM: CT SINUSES WITH IV CONTRAST COMPARISON: 09/02/2023 FINDINGS: No acute intracranial hemorrhage. No abnormal intracranial mass or fluidcollection. The brain is normal in attenuation and morphology for patient's age. Sulci are normal flu within the left mastoid air cells and middle ear.Edematous thickening of the soft tissues along the left external auditorycanal. Small amount of frothy secretions in the right maxillary sinus.Moderate bilateral maxillary sinus mucosal thickening. Otherwise mild scattered paranasal sinus mucosalthickening. Minimal paranasal sinus chronic bony remodeling, predominantlyinvolving the left maxillary sinus. No aggressive osseous lesion orabnormal enhancing soft tissue mass. Visualized portions of the orbits, calvarium and skull base areunremarkable. IMPRESSION: Findings are consistent of mild acute paranasal sinusitis, acute leftmastoiditis, and left otitis media. us Jorje Torres M.D. IMG CT PROCEDURES Final Result * (ABNORMAL) Hemoglobin A1c (09/12/2024 2:21 PM CDT) Hemoglobin A1c, B 6.9(H) 4.2 - 5.6 % 09/12/2024 2:47 PM CDT OWAT Comment: Hemoglobin A1c values greater than or equal to 6.5 percent are diagnostic for diabetes mellitus. Diagnosis should be confirmed by repeat testing. In diabetic patients, HbA1c goals should be discussed with healthcare provider. Blood (Blood, Venous) 09/12/2024 2:21 PM CDT 09/12/2024 2:21 PM CDT us Hitesh Snow APRN, C.N.P. LAB BLOOD ADD-ON Fin al Result [facility] [address] [place] [address], [facility] OWAT [facility] [address] [place] [address] * Albumin, Random, Urine (06/15/2024 8:40 AM LEAF STRIPPER) Microalbumin 20.0 mg/L 06/15/2024 9:31 AM LEAF STRIPPER OWAT Creatinine 141 mg/dL 06/15/2024 9:31 AM LEAF STRIPPER OWAT Albumin/Creatinin e Ratio 14 <17 mg/g 06/15/2024 9:31 AM LEAF STRIPPER OWAT Urine (Urine, Midstream) 06/15/2024 8:40 AM LEAF STRIPPER 06/15/2024 8:50 AM LEAF STRIPPER us Ruchi Sharma M.D. LAB URINE ORDERABLES Fin al Result [facility] [address] [place] [address], [facility] OWAT [facility] [address] [place] [address] * (ABNORMAL) Lipid Panel (12/19/2023 2:41 PM [...] PM CDT Silvia Robison M.D. LAB BLOOD ADD-ON Final Result [facility] [address] [place] [address], [place] OWAT [facility] [address] [place] [address] from Last 3 Months or Most Recently Relevant to Health Maintenance Insurance Langloismodesto Hudson [address] [place] [phone] [employer] MISTY IBRAHIM [address] [place] [phone] [place] [phone] Advance Directives For more information, please contact: [phone] * Full Code (Latest Code Status on File) Date Activated Date Inactivated Comments 07/15/2019 10:35 AM 07/16/2019 1:23 PM Question Answer Comments Full Code: Discussed Care Teams Import Export Clerk Relationship Specialty Start Date End Date Silvia Robison M.D. [address] [place] [phone] PCP - General Family Medicine 10/03/23
--- OUTSIDE RECORDS SUMMARY | 2025-01-23 06:36 | XMS_ITS | Encounter Summary ---
Author Organization [facility] Address [address] [place] [address] Care Team Providers Care Employment Representative Name Role Phone Silvia Robison M.D. Primary Care Provider Reason for Referral * Physical Therapy (Routine) - Authorized Specialty Diagnoses / Procedures Referred By Franky zeng Referred To Contact Diagnoses Fracture Hand Multiple Closed Initial Left Procedures PT or OT eval and treat (first available) Chikis Ware APRN, C.N.P. [address] [place] [phone] Phone: tel: fax: [facility] Referral ID Status Reason Start Date Expiration Date V isits Requested Visits Authorized [id number] Authorized 12/23/2024 03/25/2026 1 1 Encounter Details Date Type Department Care Team (Late st Contact Info) Description 12/23/2024 Orders Only Department of Orthopedic Surgery in [place], [place] [address] [place] [phone] Chikis Ware APRN, C.N.P. [address] [place] [phone] Fracture Hand Multiple Closed Initial Left (Primary [...] things needed for daily living? No 12/24/2024 [facility] Utilities Answer Date Recorded In [...] with others, in a hotel, in a detention, living outside on the street, on a [...] CDT Gender Identity Male 05/21/2020 12:19 PM PEER COUNSELOR Sexual Orientation Straight 07/10/2017 5: 27 PM CDT documented as of this encounter Plan of Treatment Upcoming Encounters Date Type Department Care Team (Latest Contact Info) Description 01/29/2025 2:00 PM CDT Comprehensive Visit Department of Physical Medicine and Rehabilitation in [address] [address] Ashli Kincaid APRN, C.N.P., M.S.N. [address] [place] [phone] Imtiaz Barker M.S., P.T., D.P.T. [address] [place] [phone] 02/02/2025 10:00 AM CDT Clinical Support Department of Physical Medicine and Rehabilitation in [place], [place] [address] [place] [phone] Alexys Mensah M.B.B.S. [address] [place] [phone] Linda Parra C.H.T., O.T. [address] [place] [phone] 02/03/2025 2:00 PM CDT Clinical Support Department of Physical Medicine and Rehabilitation in [address] [address] Ashli Kincaid APRN, C.N.P., M.S.N. [address] [place] [phone] Imtiaz Barker M.S., P.T., D.P.T. [address] [place] [phone] 02/09/2025 4:00 PM CDT Comprehensive Visit Department of Physical Medicine and Rehabilitation in [address] [address] Ashli Kincaid APRN, C.N.P., M.S.N. [address] [place] [phone] Julián Luz, M.A., O.T. [address] [place] [phone] 02/22/2025 10:00 AM PEER COUNSELOR Clinical Support Department of Physical Medicine and Rehabilitation in [address] [address] Ashli Kincaid APRN, C.N.P., M.S.N. [address] [place] [phone] Julián Luz, M.A., O.T. [address] [place] [phone] 03/15/2025 10:00 AM PEER COUNSELOR Appointment Department of Radiology, [facility], in [place], [place] [address] [place] [phone] Renee Lassiter M.D. [address] [place] [phone] Discharge Disposition: Home or Self Care 03/15/2025 10:30 AM PEER COUNSELOR Office Visit Department of Orthopedic Surgery in [place], [place] [address] [place] [phone] Alexys Mensah M.B.B.S. [address] [place] [phone] 03/15/2025 11:00 AM PEER COUNSELOR Clinical Support Department of Physical Medicine and Rehabilitation in [place], [place] [address] [place] [phone] Alexys Mensah M.B.B.S. [address] [place] [phone] Carlos Perez C.H.T., O.T. [address] [place] [phone] 03/15/2025 1:00 PM PEER COUNSELOR Office Visit Section of Preventive, Transportation and Occupational Medicine in [place], [place] [address] [place] [phone] Ashli Kincaid APRN, C.N.P., M.S.N. [address] [place] [phone] documented as of this encounter Visit Diagnoses Diagnosis Fracture Hand Multiple Closed Initial Left- Primary documented in this encounter Additional Health Concerns Assessment Noted Time PHQ-9 Depression Total Score: 11 025 6:47 AM CDT documented as of this encounter Care Teams Employment Representative Relationship Specialty Start Date End Date Silvia Robison M.D. NPJacob: [phone] [address] [place] [phone] PCP - General Family Medicine 10/03/23 documented as of this encounter
--- OUTSIDE RECORDS SUMMARY | 2025-01-23 06:36 | XMS_ITS | Encounter Summary ---
Author Organization [facility] Address [address] [place] [address] Care Team Providers Care Waxing Machine Operator Name Role Phone Silvia Robison M.D. Primary Care Provider Reason for Visit * Reason Comments Med Refill Encounter Details Date Type Department Care Team (Late st Contact Info) Description 01/15/2025 Refill Department of Family Medicine, [facility], in [place], [place] [address] [place] [phone] Silvia Robison M.D. [address] [place] [phone] Med Refill Social History Tobacco Use [...] things needed for daily living? No 12/24/2024 [facility] Utilities Answer Date Recorded In the past 12 months has e electric, gas, oil, or water [employer] threatened to shut off services in your home? Patient declined 12/24/2024 Depression Answer Date Recor ded PHQ-9 Total Score (max 27) 11 10/23 Housing Stability Answer Date Recorded What is your living situatio n today? 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 [address] [place] [phone] Imtiaz Barker M.S., P.T., D.P.T. [address] [place] [phone] 02/02/2025 10:00 AM CDT Clinical Support Department of Physical Medicine and Rehabilitation in [place], [place] [address] [place] [phone] Alexys Mensah M.B.B.S. [address] [place] [phone] Linda Parra C.HLavonne., O.T. [address] [place] [phone] 02/03/2025 2:00 PM CDT Clinical Support Department of Physical Medicine and Rehabilitation in [place], [place] [address] [place] [phone] Ashli Kincaid APRN, C.N.P., M.S.N. [address] [place] [phone] Imtiaz Barker M.S., P.T., D.P.T. [address] [place] [phone] 02/09/2025 4:00 PM CDT Comprehensive Visit Department of Physical Medicine and Rehabilitation in [place], [place] [address] [place] [phone] Ashli Kincaid APRN, C.N.P., M.S.N. [address] [place] [phone] Julián Luz M.A., O.T. [address] [place] [phone] 02/22/2025 10:00 AM VISION IMPAIRED TEACHER Clinical Support Department of Physical Medicine and Rehabilitation in [place], [place] [address] [place] [address] Ashli Kincaid APRN, C.NMago., M.S.N. [address] [place] [phone] Julián Luz M.A., O.T. [address] [place] [phone] 03/15/2025 10:00 AM VISION IMPAIRED TEACHER Appointment Department of Radiology, [facility], in [place], [place] [address] [place] [phone] Renee Lassiter M.D. [address] [place] [phone] Discharge Disposition: Home or Self Care 03/15/2025 10:30 AM VISION IMPAIRED TEACHER Office Visit Department of Orthopedic Surgery in [place], [place] [address] [place] [phone] Alexys Mensah M.B.B.S. [address] [place] [phone] 03/15/2025 11:00 AM VISION IMPAIRED TEACHER Clinical Support Department of Physical Medicine and Rehabilitation in [place], [place] [address] [place] [phone] Alexys Mensah M.B.B.S. [address] [place] [phone] Carlos Perez C.H.T., O.T. [address] [place] [phone] 03/15/2025 1:00 PM VISION IMPAIRED TEACHER Office Visit Section of Preventive, Transportation and Occupational Medicine in [place], [place] [address] [place] [phone] Ashli Kincaid APRN, C.N.P., M.S.N. [address] [place] [phone] documented as of this encounter Visit Diagnoses Not on filedocumented in this encounter Additional Health Concerns Assessment Noted Time PHQ-9 Depression Total Score: 11 025 6:47 AM CDT documented as of this encounter Care Teams Waxing Machine Operator Relationship Specialty Start Date End Date Silvia Robison M.D. [address] [place] [phone] PCP - General Family Medicine 10/03/23 documented as of this encounter
--- OUTSIDE RECORDS SUMMARY | 2025-01-23 06:37 | XMS_ITS | Encounter Summary ---
Author Organization [facility] Address [address] [place] [address] Care Team Providers Care Sql Programmer Analyst Name Role Phone Silvia Robison M.D. Primary Care Provider Reason for Visit * Reason Comments Med Refill Encounter Details Date Type Department Care Team (Late st Contact Info) Description 01/22/2025 Refill Department of Family Medicine, [facility], in [place], [place] [address] [place] [phone] Silvia Robison M.D. [address] [place] [phone] Med Refill Social History Tobacco Use [...] things needed for daily living? No 12/24/2024 [facility] Utilities Answer Date Recorded In the past 12 months has e electric, gas, oil, or water [employer] threatened to shut off services in your home? Patient declined 12/24/2024 Depression Answer Date Recor ded PHQ-9 Total Score (max 27) 11 10/23 Housing Stability Answer Date Recorded What is your living situatio n today? I do not have a steady place to live (I am temporarily staying with others, in a hotel, in a snf, living outside on the street, on a [...] CDT Gender Identity Male 05/21/2020 12:19 PM EXPERIMENTAL MECHANIC SPACECRAFT Sexual Orientation Straight 07/10/2017 5: 27 PM CDT documented as of this encounter Plan of Treatment Upcoming Encounters Date Type Department Care Team (Latest Contact Info) Description 01/29/2025 2:00 PM CDT Comprehensive Visit Department of Physical Medicine and Rehabilitation in [place], [place] [address] [place], [place] [phone] Ashli Kincaid APRN, C.N.P., M.S.N. [address] [place] [phone] Imtiaz Barker M.S., P.T., D.P.T. [address] [place] [phone] 02/02/2025 10:00 AM CDT Clinical Support Department of Physical Medicine and Rehabilitation in [place], [place] [address] [place] [phone] Alexys Mensah M.B.B.S. [address] [place] [phone] Linda Parra C.HLavonne., O.T. [address] [place] [phone] 02/03/2025 2:00 PM CDT Clinical Support Department of Physical Medicine and Rehabilitation in [place], [place] [address] [place] [phone] Ashli Kincaid APRN, C.N.P., M.S.N. [address] [place] [phone] Imtiaz Barker M.S., P.T., D.P.T. [address] [place] [phone] 02/09/2025 4:00 PM CDT Comprehensive Visit Department of Physical Medicine and Rehabilitation in [place], [place] [address] [place] [phone] Ashli Kincaid APRN, C.N.P., M.S.N. [address] [place] [phone] Julián Luz M.A., O.T. [address] [place] [phone] 02/22/2025 10:00 AM EXPERIMENTAL MECHANIC SPACECRAFT Clinical Support Department of Physical Medicine and Rehabilitation in [place], [place] [address] [place] [address] Ashli Kincaid APRN, C.NMago., M.S.N. [address] [place] [phone] Julián Luz M.A., O.T. [address] [place] [phone] 03/15/2025 10:00 AM EXPERIMENTAL MECHANIC SPACECRAFT Appointment Department of Radiology, [facility], in [place], [place] [address] [place] [phone] Renee Lassiter M.D. [address] [place] [phone] Discharge Disposition: Home or Self Care 03/15/2025 10:30 AM EXPERIMENTAL MECHANIC SPACECRAFT Office Visit Department of Orthopedic Surgery in [place], [place] [address] [place] [phone] Alexys Mensah M.B.B.S. [address] [place] [phone] 03/15/2025 11:00 AM EXPERIMENTAL MECHANIC SPACECRAFT Clinical Support Department of Physical Medicine and Rehabilitation in [place], [place] [address] [place] [phone] Alexys Mensah M.B.B.S. [address] [place] [phone] Carlos Perez C.H.T., O.T. [address] [place] [phone] 03/15/2025 1:00 PM EXPERIMENTAL MECHANIC SPACECRAFT Office Visit Section of Preventive, Transportation and Occupational Medicine in [place], [place] [address] [place] [phone] Ashli Kincaid APRN, C.N.P., M.S.N. [address] [place] [phone] documented as of this encounter Visit Diagnoses Not on filedocumented in this encounter Additional Health Concerns Assessment Noted Time PHQ-9 Depression Total Score: 11 025 6:47 AM CDT documented as of this encounter Care Teams Sql Programmer Analyst Relationship Specialty Start Date End Date Silvia Robison M.D. [address] [place] [phone] PCP - General Family Medicine 10/03/23 documented as of this encounter
--- OUTSIDE RECORDS SUMMARY | 2025-01-23 06:37 | XMS_ITS | Encounter Summary ---
Author Organization [facility] Address [address] [place] [phone] Care Team Providers Care Switchboard Wirer Name Role Phone Silvia Robison M.D. Primary Care Provider Encounter Details Date Type Department Care Team (Late st Contact Info) Description 01/08/2025 Orders Only Department of Orthopedic Surgery in [place], [place] [address] [place] [phone] Saba Rogers P.A.-C. [address] [place] [phone] Social History Tobacco Use Types Packs/Day Years [...] for daily living? No 12/24/2024 [facility] Utilities Answer Date Recorded In the past 12 months has e [employer], gas, oil, or water [employer] threatened to shut off services in your home? Patient declined 12/24/2024 Depression Answer Date Recor ded PHQ-9 Total Score (max 27) 11 10/23 Housing Stability Answer Date Recorded What is your living situatio n today? 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 [address] [place] [phone] Imtiaz Barker MJohnny., P.T., D.P.T. [address] [place] [phone] 02/02/2025 10:00 AM CDT Clinical Support Department of Physical Medicine and Rehabilitation in [place], [place] [address] [place] [phone] Alexys Mensah M.B.B.S. [address] [place] [phone] Linda Parra C.H.T., O.T. [address] [place] [phone] 02/03/2025 2:00 PM CDT Clinical Support Department of Physical Medicine and Rehabilitation in [place], [place] [address] [place] [address] Ashli Kincaid APRN, C.N.P., M.S.N. [address] [place] [phone] Imtiaz Barker, M.S., P.T., D.P.T. [address] [place] [phone] 02/09/2025 4:00 PM CDT Comprehensive Visit Department of Physical Medicine and Rehabilitation in [place], [place] [address] [place] [phone] Ashli Kincaid APRN, C.N.P., M.S.N. [address] [place] [phone] Julián Luz M.A., O.T. [address] [place] [phone] 02/22/2025 10:00 AM TURRET PRESS OPERATOR Clinical Support Department of Physical Medicine and Rehabilitation in [place], [place] [address] [facility] [place] [phone] Ashli Kincaid APRN, C.NMago., M.S.N. [address] [place] [phone] Julián Luz M.A., O.T. [address] [place] [phone] 03/15/2025 10:00 AM TURRET PRESS OPERATOR Appointment Department of Radiology, [facility], in [place], [place] [address] [place] [phone] Renee Lassiter M.D. [address] [place] [phone] Discharge Disposition: Home or Self Care 03/15/2025 10:30 AM TURRET PRESS OPERATOR Office Visit Department of Orthopedic Surgery in [place], [place] [address] [place] [phone] Alexys Mensah M.B.B.S. [address] [place] [phone] 03/15/2025 11:00 AM TURRET PRESS OPERATOR Clinical Support Department of Physical Medicine and Rehabilitation in [place], [place] [address] [place] [phone] Alexys Mensah M.B.B.S. [address] [place] [phone] Carlos Perez C.H.T., O.T. [address] [place] [phone] 03/15/2025 1:00 PM TURRET PRESS OPERATOR Office Visit Section of Preventive, Transportation and Occupational Medicine in [place], [place] [address] [place] [phone] Ashli Kincaid APRN, CSammNSammPSamm, M.S.N. [address] [place] [phone] documented as of this encounter Visit Diagnoses Not on filedocumented in this encounter Additional Health Concerns Assessment Noted Time PHQ-9 Depression Total Score: 11 025 6:47 AM CDT documented as of this encounter Care Teams Switchboard Wirer Relationship Specialty Start Date End Date Silvia Robison M.D. [address] [place] [phone] PCP - General Family Medicine 10/03/23 documented as of this encounter
[2025-01-23 06:40] LABS: Chloride* 104 mmol/L (96-114); Sodium* 138 mmol/L (135-149)
[2025-01-23 06:41] LABS: Potassium* 4.2 mmol/L (3.6-5.1)
[2025-01-23 06:44] LABS: Anion Gap 12 mEq/L (7-15); Blood Urea Nitrogen* 12 mg/dL (7-30); Calcium* 9.1 mg/dL (8.4-10.6); Carbon Dioxide* 22 mmol/L (20-32); Creatinine* 0.8 mg/dL (0.5-1.5); Est. Creatinine Clearance* 136.13; Estimated Glomerular Filt Rate 106 ml/min; Glucose* 256 mg/dL (60-115)
[2025-01-23 06:52] VITALS: O2SAT 99
[2025-01-23 06:53] LABS: Slide Review Reflex No
[2025-01-23 07:25] VITALS: BP 155/105; PULSE 77; RESP 16; O2SAT 97
[2025-01-23] MEDS: PIPERACILLIN/TAZOBACTAM 3.375 GM in 0.9 % SODIUM CHLORIDE Mini-bag 100 ML IVPB (07:41)
--- NOTE | 2025-01-23 08:08 | CRLHL7_ITS ---
For Patients: As a result of the 21st Century Cures Act, medical imaging exams and procedure reports are released immediately into your electronic medical record. You may view this report before your referring provider. If you have questions, please contact your health care provider. INDICATION: Left ear drainage and pain. COMPARISON: None. TECHNIQUE: Noncontrast CT of the mandaen bones. FINDINGS: Right: The right mastoid air cells and mastoid antrum are clear. Middle ear cavity is clear. Normal articulation of the ossicular chain. No opacification of sinus tympani. Normal tympanic membrane. The external auditory canal is patent. Tegmen tympani is intact. Normal mineralization of the otic capsule. Normal cochlea and vestibule. Normal internal auditory canal. Small amount this soft tissue debris/cerumen within the EAC. There is marked thinning of the osseous margin of the superior semicircular canal (series 7, image 64; series 8, image 47). Small focal dehiscence cannot be completely excluded. Left: Complete opacification of the left mastoid air cells. Fluid within the mastoid antrum. Fluid in soft tissue density within the middle ear cavity. The tympanic membrane is thickened and retracted. Scutum is blunted. Compared to the right, the ossicular chain is indistinct likely secondary to erosive changes. Underlying cholesteatoma cannot be excluded. Tegmen tympani is grossly intact. There is soft tissue thickening along the rodriguez of the EAC with associated narrowing. Normal mineralization the otic capsule. Normal cochlea vestibule. There is marked thinning of the osseous margin of the superior semicircular canal (series 9, image 40). Underlying dehiscence cannot be excluded. Other: Fluid mucosal thickening of the visualized right maxillary sinus IMPRESSION: 1. On the LEFT, mastoid effusion. Fluid within the mastoid antrum. Soft tissue density and fluid within the middle ear cavity. 2. Within the LEFT middle ear cavity, blunting of the scutum with indistinct ossicular morphology. Underlying cholesteatoma can not be excluded. 3. There is soft tissue thickening and narrowing of the left EAC. 4. There is thinning of the osseous margin of the BILATERAL superior semicircular canals. Small focal dehiscence can not be excluded. 5. Remainder of the RIGHT temporal bone structures are normal Please note that all CT scans at this facility use dose modulation, iterative reconstruction, and/or weight-based dosing when appropriate to reduce radiation dose to as low as reasonably achievable. Dictated by Freddie Proctor MD @ 01/23/2025 8:49:18 AM (Electronically Signed)
[2025-01-23] MEDS: ONDANSETRON 2 MG/ML inj 4 MG IVP (08:36)
--- NOTE | 2025-01-23 12:43 | ED.NURSE ---
Patient called stating several of the medications that were sent with are not on the formulary for [facility]. Auto Collision Repair Instructor called pharmacy to see the alternatives. Ciprofloxacin rather than Levaquin. [place] was e-prescribed as hard copy not accepted as it did not contain her address. Zofran not available but patient able to get through [employer] at a reasonable copay. Cortisporin otic 3.5 mg/ml sent as that is on the formulary.
== END 2025-01-23 09:19 | disposition home or self-care (01) ==
PROVIDERS: Emergency Provider Family Medicine; PCP Student in an Organized Health Care Education/Training Program
DX: H70.92 Unspecified mastoiditis, left ear (principal); H60.92 Unspecified otitis externa, left ear; H71.92 Unspecified cholesteatoma, left ear; R11.0 Nausea
CPT/HCPCS: 36415; 70480; 70491; 80048; 82565; 85025; 86140; 87070; 87102; 94761; 96365; 96375; 99284; 99285; A9270; J2405; J2543; Q9967

== ENCOUNTER 2025-02-15 13:17 | Emergency (ER) | payer OTHER, SELFPAY ==
--- OUTSIDE RECORDS SUMMARY | 2025-01-07 10:00 | XMS_ITS | Encounter Summary ---
Author Organization [facility] Address [address] [place] [address] Care Team Providers Care Orchestra Leader Name Role Phone Silvia Robison M.D. Primary Care Provider Reason for Visit * Appointment Request (Routine) - Pending Review Specialty Diagnoses / Procedures Referred By Franky zeng Referred To Contact Orthopedic Surgery Referral ID Status Reason Start Date Expiration Date V isits Requested Visits Authorized [id number] Pending Review 12/08/2024 03/10/2026 1 1 Encounter Details Date Type Department Care Team (Latest Contact Info) Description 01/07/2025 10:00 AM CDT Clinical Communication Virtual Review in [place], [place] [address] [place] [phone] Social History Tobacco Use Types Packs/Day Years [...] things needed for daily living? No 12/24/2024 [facility] Utilities Answer Date Recorded In the past 12 months has e [employer], gas, oil, or water [employer] threatened to shut off services in your home? Patient declined 12/24/2024 Depression Answer Date Recor ded PHQ-9 Total Score (max 27) 11 10/23 Housing Stability Answer Date Recorded What is your living situatio n today? I do not have a steady place to live (I am temporarily staying with others, in a hotel, in a senior living, living outside on the street, on a [...] CDT Gender Identity Male 05/21/2020 12:19 PM RN TEACHER Sexual Orientation Straight 07/10/2017 5: 27 PM CDT documented as of this encounter Plan of Treatment Upcoming Encounters Date Type Department Care Team (Latest Contact Info) Description 02/16/2025 1:00 PM CDT Clinical Support Department of Physical Medicine and Rehabilitation in [place], [place] [address] [place] [phone] Alexys Mensah M.B.B.S. [address] [place] [phone] Cher Kemp C.HLavonne., O.T. [address] [place] [phone] 02/16/2025 3:00 PM CDT Clinical Support Department of Physical Medicine and Rehabilitation in [place], [place] [address] [place] [phone] Ashli Kincaid APRN, C.NHeather, M.S.N. [address] [place] [phone] mItiaz Barker, M.Mala., P.T., D.P.T. [address] [place] [phone] 02/18/2025 9:00 AM CDT Clinical Support Department of Physical Medicine and Rehabilitation in [place], [place] [address] [place] [phone] Alexys Mensah M.B.B.S. [address] [place] [phone] Cher Kemp C.HLavonne., O.T. [address] [place] [phone] 02/22/2025 11:00 AM [facility] Clinical Support Department of Physical Medicine and Rehabilitation in [place], [place] [address] [place] [phone] Ashli Kincaid APRN, C.NHeather, M.S.N. [address] [place] [phone] Imtiaz Braker M.S., P.T., D.P.T. [address] [place] [phone] 03/02/2025 3:00 PM RN TEACHER Clinical Support Department of Physical Medicine and Rehabilitation in [place], [place] [address] [place], [place] [phone] Ashli Kincaid APRN, C.N.P., M.S.N. [address] [place] [phone] Imtiaz Barker M.S., P.T., D.P.T. [address] [place] [phone] 03/15/2025 10:00 AM RN TEACHER Appointment Department of Radiology, [facility], in [place], [place] [address] [place] [phone] Renee Lassiter M.D. [address] [place] [phone] Discharge Disposition: Home or Self Care 03/15/2025 10:30 AM RN TEACHER Office Visit Department of Orthopedic Surgery in [place], [place] [address] [place] [phone] Alexys Mensah M.B.B.S. [address] [place] [phone] 03/15/2025 11:00 AM RN TEACHER Clinical Support Department of Physical Medicine and Rehabilitation in [place], [place] [address] [place] [phone] Alexys Mensah M.B.B.S. [address] [place] [phone] Cecilia Ashford P.T., C.H.T. [address] [place] [phone] 03/15/2025 1:00 PM RN TEACHER Office Visit Section of Preventive, Transportation and Occupational Medicine in [place], [place] [address] [place] [phone] Ashli Kincaid APRN, C.N.P., M.S.N. [address] [place] [phone] documented as of this encounter Visit Diagnoses Not on filedocumented in this encounter Additional Health Concerns Assessment Noted Time PHQ-9 Depression Total Score: 11 025 6:47 AM CDT documented as of this encounter Care Teams Orchestra Leader Relationship Specialty Start Date End Date Silvia Robison M.D. [address] [place] [phone] PCP - General Family Medicine 10/03/23 documented as of this encounter
--- OUTSIDE RECORDS SUMMARY | 2025-01-12 09:51 | XMS_ITS | Encounter Summary ---
Author Organization [facility] Address [address] [place] [address] Care Team Providers Care Service Learning Coordinator Name Role Phone Silvia Robison M.D. Primary Care Provider Reason for Referral * Outpatient (Routine) - Closed Specialty Diagnoses / Procedures Referred By Franky zeng Referred To Contact Diagnoses Fracture Hand Multiple Closed Initial Left Procedures DX Hand Left 3+ Views Saba Rogers P.A.-C. [address] [place] [address] Phone: tel: fax: [facility] Referral ID Status Reason Start Date Expiration Date Visits Re quested Visits Authorized [id number] Closed 12/08/2024 03/10/2026 1 1 Reason for Visit * Outpatient (Routine) - Closed Specialty Diagnoses / Procedures Referred By Franky zeng Referred To Contact Diagnoses Fracture Hand Multiple Closed Initial Left Procedures DX Hand Left 3+ Views Saba Rogers P.A.-C. [address] [place] [address] Phone: tel: fax: [facility] Referral ID Status Reason Start Date Expiration Date Visits Re quested Visits Authorized [id number] Closed 12/08/2024 03/10/2026 1 1 Encounter Details Date Type Department Care Team (Latest Contact Info) Description 01/12/2025 9:51 AM CDT - 01/12/2025 11:59 PM CDT Hospital Encounter Department of Radiology, [facility], in [place], [place] [address] [place] [phone] Saba Rogers P.A.-C. [address] [place] [address] Fracture Hand Multiple Closed Initial Left Discharge [...] things needed for daily living? 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 90 tablet 3 5 ondansetron ODT (Zofran-ODT) 4 mg disintegrating [...] skin every 7 (seven) days. 9 mL 5 08/19/19 26 sennosides (Senokot) 8.6 mg [...] further refills 90 tablet 5 01/19/20 25 metFORMIN XR (Glucophage-XR) 500 mg 24 hr tablet Take 2 tablets by mouth twice daily 360 tablet 5 02/04/20 25 documented as of this encounter Plan of Treatment Upcoming Encounters Date Type Department Care Team (Latest Contact Info) Description 02/16/2025 1:00 PM CDT Clinical Support Department of Physical Medicine and Rehabilitation in [place], [place] [address] [place] [phone] Alexys Mensah M.B.B.S. [address] [place] [phone] Cher Kemp C.H.T., O.T. [address] [place] [phone] 02/16/2025 3:00 PM CDT Clinical Support Department of Physical Medicine and Rehabilitation in [address] [phone] Ashli Kincaid APRN, C.N.P., M.S.N. [address] [place] [phone] Imtiaz Barker M.S., P.T., D.P.T. [address] [place] [phone] 02/18/2025 9:00 AM CDT Clinical Support Department of Physical Medicine and Rehabilitation in [place], [place] [address] [place] [phone] Alexys Mensah M.B.B.S. [address] [place] [phone] Cher Kemp C.HSammT., O.T. [address] [place] [phone] 02/22/2025 11:00 AM TERRITORY SALES EXECUTIVE Clinical Support Department of Physical Medicine and Rehabilitation in [address] [address] Ashli Kincaid APRN, C.NHeather, M.S.N. [address] [place] [phone] Imtiaz Barker M.S., P.T., D.P.T. [address] [place] [phone] 03/02/2025 3:00 PM TERRITORY SALES EXECUTIVE Clinical Support Department of Physical Medicine and Rehabilitation in [address] [address] Ashli Kincaid APRN, Yelitza.NMago., M.S.N. [address] [place] [phone] Imtiaz Barker M.S., P.T., D.P.T. [address] [place] [phone] 03/15/2025 10:00 AM TERRITORY SALES EXECUTIVE Appointment Department of Radiology, [facility], in [place], [place] [address] [place] [phone] Renee Lassiter M.D. [address] [place] [phone] Discharge Disposition: Home or Self Care 03/15/2025 10:30 AM TERRITORY SALES EXECUTIVE Office Visit Department of Orthopedic Surgery in [place], [place] [address] [place] [phone] Alexys Mensah M.B.B.S. [address] [place] [phone] 03/15/2025 11:00 AM TERRITORY SALES EXECUTIVE Clinical Support Department of Physical Medicine and Rehabilitation in [place], [place] [address] [place] [phone] Alexys Mensah M.B.B.S. [address] [place] [phone] Cecilia Ashford P.T., C.H.T. [address] [place] [phone] 03/15/2025 1:00 PM TERRITORY SALES EXECUTIVE Office Visit Section of Preventive, Transportation and Occupational Medicine in [place], [place] [address] [place] [phone] Ashli Kincaid APRN, CSammNSammP., M.S.N. [address] [place] [phone] documented as of this encounter Procedures Procedure [...] documented as of this encounter Care Teams Service Learning Coordinator Relationship Specialty Start Date End Date Silvia Robison M.D. [address] [phone] PCP - General Family Medicine 10/03/23 documented as of this encounter
--- OUTSIDE RECORDS SUMMARY | 2025-01-12 11:00 | XMS_ITS | Encounter Summary ---
Author Organization [facility] Address [address] [place] [address] Care Team Providers Care Digital Media Coordinator Name Role Phone Silvia Robison M.D. Primary Care Provider Reason for Referral * Outpatient (Routine) - Closed Specialty Diagnoses / Procedures Referred By Franky zeng Referred To Contact Occupational Medicine Diagnoses Fracture Middle Finger Proximal Phalanx Displaced Sequela Left Fracture Index Finger Proximal Phalanx Displaced Sequela Left Saba Rogers P.A.-C. [address] [place] [address] Phone: tel: fax: [facility] Referral ID Status Reason Start Date Expiration Date Visits Re quested Visits Authorized [id number] Closed 01/12/2025 07/14/2026 1 1 * Physical Therapy (Routine) - Closed Specialty Diagnoses / Procedures Referred By Franky zeng Referred To Contact Diagnoses Fracture Middle Finger Proximal Phalanx Displaced Sequela Left Procedures PT or OT eval and treat (first available) Saba Rogers P.A.-C. [address] [place] [address] Phone: tel: fax: [facility] Referral ID Status Reason Start Date Expiration Date Visits Re quested Visits Authorized [id number] Closed 01/12/2025 04/14/2026 1 1 * Outpatient (Routine) - Authorized Specialty Diagnoses / Procedures Referred By Contac t Referred To Contact Diagnoses Fracture Wrist And Hand Other Open Initial Left Procedures DX Hand Left 3+ Views Renee Lassiter M.D. [address] [place] [phone] Phone: tel: fax: [facility] Referral ID Status Reason Start Date Expiration Date V isits Requested Visits Authorized [id number] Authorized 01/12/2025 04/14/2026 1 1 * Outpatient (Routine) - Authorized Specialty Diagnoses / Procedures Referred By Contac t Referred To Contact Orthopedic Surgery Diagnoses dx Renee Lassiter M.D. [address] [place] [phone] Phone: tel: fax: Alexys Mensah M.B.B.S. [address] [place] [phone] Phone: tel: fax: Referral ID Status Reason Start Date Expiration Date V isits Requested Visits Authorized [id number] Authorized 01/12/2025 07/14/2026 1 1 Reason for Visit * Outpatient (Routine) - Closed Specialty Diagnoses / Procedures Referred By Contac t Referred To Contact Orthopedic Surgery Diagnoses dx Saba Rogers P.A.-C. [address] [place] [phone] Phone: tel: fax: Alexys Mensah M.B.B.S. [address] [place] [phone] Phone: tel: fax: Referral ID Status Reason Start Date Expiration Date Visits Re quested Visits Authorized [id number] Closed 12/08/2024 06/09/2026 1 1 Encounter Details Date Type Department Care Team (Late st Contact Info) Description 01/12/2025 11:00 AM CDT Office Visit Department of Orthopedic Surgery in [place], [place] [address] [place] [address] Alexys Mensah M.B.BSammS. [address] [place] [phone] Fracture Middle Finger Proximal Phalanx Displaced Sequela [...] things needed for daily living? 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 Pressure was [...] blade, then removal of K-wire with needle bull driver. documented in this encounter Plan of Treatment Upcoming Encounters Date Type Department Care Team (Latest Contact Info) Description 02/16/2025 1:00 PM CDT Clinical Support Department of Physical Medicine and Rehabilitation in [place], [place] [address] [place] [phone] Alexys Mensah M.B.B.S. [address] [place] [phone] Cher Kemp C.H.T., O.T. [address] [place] [phone] 02/16/2025 3:00 PM CDT Clinical Support Department of Physical Medicine and Rehabilitation in [place], [place] [address] [place] [address] Ashli Kincaid APRN, C.NHeather, M.S.N. [address] [place] [phone] Imtiaz Barker M.S., P.T., D.P.T. [address] [place] [phone] 02/18/2025 9:00 AM CDT Clinical Support Department of Physical Medicine and Rehabilitation in [place], [place] [address] [place] [phone] Alexys Mensah M.B.B.S. [address] [place] [phone] Cher Kemp, Yelitza.H.T., O.T. [address] [place] [phone] 02/22/2025 11:00 AM CHILD'S NURSE Clinical Support Department of Physical Medicine and Rehabilitation in [place], [place] [address] [place] [address] Ashli Kincaid APRN, C.NHeather, M.S.N. [address] [place] [phone] Imtiaz Barker M.S., P.T., D.P.T. [address] [place] [phone] 03/02/2025 3:00 PM CHILD'S NURSE Clinical Support Department of Physical Medicine and Rehabilitation in [place], [place] [address] [place] [address] Ashli Kincaid APRN, Yelitza.NMago., M.S.N. [address] [place] [phone] Imtiaz Barker M.S., P.T., D.P.T. [address] [place] [phone] 03/15/2025 10:00 AM CHILD'S NURSE Appointment Department of Radiology, [facility], in [place], [place] [address] [place] [phone] Renee Lassiter M.D. [address] [place] [phone] Discharge Disposition: Home or Self Care 03/15/2025 10:30 AM CHILD'S NURSE Office Visit Department of Orthopedic Surgery in [place], [place] [address] [place] [phone] Alexys Mensah M.B.B.S. [address] [place] [phone] 03/15/2025 11:00 AM CHILD'S NURSE Clinical Support Department of Physical Medicine and Rehabilitation in [place], [place] [address] [place] [phone] Alexys Mensah M.B.B.S. [address] [place] [phone] Cecilia Ashford P.T., C.H.T. [address] [place] [phone] 03/15/2025 1:00 PM CHILD'S NURSE Office Visit Section of Preventive, Transportation and Occupational Medicine in [place], [place] [address] [place] [phone] Ashli Kincaid APRN CSammNHeather, M.S.N. [address] [place] [address] Scheduled Orders Name Type Priority Associated Diagnoses [...] documented as of this encounter Care Teams Digital Media Coordinator Relationship Specialty Start Date End Date Silvia Robison M.D. [address] [place] [phone] PCP - General Family Medicine 10/03/23 documented as of this encounter
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
--- OUTSIDE RECORDS SUMMARY | 2025-01-12 13:30 | XMS_ITS | Encounter Summary ---
Author Organization [facility] Address [address] [place] [address] Care Team Providers Care Tapper Hand Name Role Phone Silvia Robison M.D. Primary Care Provider Reason for Referral * Outpatient (Routine) - Authorized Specialty Diagnoses [...] Return To Work Status Examination Ashli Kincaid APRN, C.N.P., M.S.N. [address] [place] [address] Phone: tel: fax: [facility] Referral ID Status Reason Start Date Expiration Date V isits Requested Visits Authorized [id number] Authorized 01/12/2025 07/14/2026 1 1 Scheduling Instructions With Sydney. Joshua to override anything through 4:00 pm. * Occupational Therapy (Routine) - Closed Specialty Diagnoses / [...] OT Evaluate and treat Ashli Kincaid APRN, C.NHeather, M.S.N. [address] [place] [phone] Phone: tel: fax: [facility] Referral ID Status Reason Start Date Expiration Date Visits Re quested Visits Authorized [id number] Closed 01/12/2025 04/14/2026 1 1 * Physical Therapy (Routine) - Closed Specialty Diagnoses / Procedures Referred By Contac t Referred To Contact Diagnoses Fracture Middle Finger Proximal Phalanx Displaced Sequela Left Fracture Hand Multiple Closed Initial Left Fracture Wrist And Hand Other Open Initial Left Fracture Index Finger Proximal Phalanx Displaced Sequela Left Pain Wrist Right Fracture Wrist Closed Initial Right Limitation Of Motion Finger Left Return To Work Status Examination Procedures PT Evaluate and treat Ashli Kincaid APRN, C.NHeather, M.S.N. [address] [place] [phone] Phone: tel: fax: [facility] Referral ID Status Reason Start Date Expiration Date Visits Re quested Visits Authorized [id number] Closed 01/12/2025 04/14/2026 1 1 Reason for Visit * Outpatient (Routine) - Closed Specialty Diagnoses / Procedures Referred By Contac t Referred To Contact Occupational Medicine Diagnoses Fracture Middle Finger Proximal Phalanx Displaced Sequela Left Fracture Index Finger Proximal Phalanx Displaced Sequela Left Saba Rogers P.A.-C. [address] [place] [phone] Phone: tel: fax: [facility] Referral ID Status Reason Start Date Expiration Date Visits Re quested Visits Authorized [id number] Closed 01/12/2025 07/14/2026 1 1 Encounter Details Date Type Department Care Team (Latest Contact Info) Description 01/12/2025 1:30 PM CDT Comprehensive Visit Section of Preventive, Transportation and Occupational Medicine in [place], [place] [address] [place] [address] Ashli Kincaid APRN C.N.P., M.S.N. [address] [place] [address] Fracture Hand Multiple Closed Initial Left (Primary [...] for daily living? 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 - 01/12/2025 1:30 PM CDT Images from the original note were not included. Employer: [employer] Date of Injury/Illness: November 09, 2024 This is a work related injury. SUBJECTIVE History of Present Illness Mr. Kirk Carter . is a 54 year old male who presents for a workability consultation following a work-related injury. He was referred by Saba Rogers P.A.-C. for impairment rating, return to work. Also present today is Kirk[employer] and [employer] [employer] [facility]. 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 PPD: Too early to determine. #9 Return To Work Status Examination Evaluating workability post-injury. Work restrictions provided today as outlined below. Prior to returning to his role as a [employer], he will need to re-complete the [employer] [...] Early Occupational Restorative Program (EORP) at the [facility]. - Low threshold to transition to work hardening/conditioning program. - Work restrictions outlined below. Work Status: From 01/12/2025 through 03/16/2025, Kirk Carter Jr. may work his full FTE withthe following [...] Department of Physical Medicine and Rehabilitation in [place], [place] [address] [place] [address] Alexys Mensah M.B.B.S. [address] [place] [phone] Cher Kemp C.H.T., O.T. [address] [place] [phone] 02/16/2025 3:00 PM CDT Clinical Support Department of Physical Medicine and Rehabilitation in [place], [place] [address] [facility] [place] [address] Ashli Kincaid APRN, C.N.P., M.S.N. [address] [place] [phone] Imtiaz Barker M.S., P.T., D.P.T. [address] [place] [phone] 02/18/2025 9:00 AM CDT Clinical Support Department of Physical Medicine and Rehabilitation in [place], [place] [address] [place] [phone] Alexys Mensah M.B.B.S. [address] [place] [phone] Cher Kemp C.H.Thad., O.T. [address] [place] [phone] 02/22/2025 11:00 AM FOOD AND BEVERAGE COORDINATOR Clinical Support Department of Physical Medicine and Rehabilitation in [place], [place] [address] [place] [phone] Ashli Kincaid APRN, C.N.P., M.S.N. [address] [place] [phone] Imtiaz Barker M.S., P.T., D.P.T. [address] [place] [phone] 03/02/2025 3:00 PM FOOD AND BEVERAGE COORDINATOR Clinical Support Department of Physical Medicine and Rehabilitation in [address] [address] Ashli Kincaid APRN, C.N.P., M.S.N. [address] [place] [phone] Imtiaz Barker M.S., P.T., D.P.T. [address] [place] [phone] 03/15/2025 10:00 AM FOOD AND BEVERAGE COORDINATOR Appointment Department of Radiology, [facility], in [place], [place] [address] [place] [phone] Renee Lassiter M.D. [address] [place] [phone] Discharge Disposition: Home or Self Care 03/15/2025 10:30 AM FOOD AND BEVERAGE COORDINATOR Office Visit Department of Orthopedic Surgery in [place], [place] [address] [place] [phone] Alexys Mensah M.B.BSammS. [address] [place] [phone] 03/15/2025 11:00 AM FOOD AND BEVERAGE COORDINATOR Clinical Support Department of Physical Medicine and Rehabilitation in [place], [place] [address] [place] [address] Alexys Mensah M.B.B.S. [address] [place] [phone] Cecilia Ashford P.T., C.H.T. [address] [place] [phone] 03/15/2025 1:00 PM FOOD AND BEVERAGE COORDINATOR Office Visit Section of Preventive, Transportation and Occupational Medicine in [place], [place] [address] [place] [address] Ashli Kincaid APRN, C.NSammP., M.S.N. [address] [place] [phone] Scheduled Referrals Name Type Priority Associated Diagnoses [...] documented as of this encounter Care Teams Tapper Hand Relationship Specialty Start Date End Date Silvia Robison M.D. [address], [place] [phone] PCP - General Family Medicine 10/03/23 documented as of this encounter
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
--- OUTSIDE RECORDS SUMMARY | 2025-02-03 14:00 | XMS_ITS | Encounter Summary ---
Author Organization [facility] Address [address] [place] [address] Care Team Providers Care Batch Freezer Operator Name Role Phone Silvia Robison M.D. Primary Care Provider Reason for Visit * Physical Therapy (Routine) - Authorized Specialty [...] Return To Work Status Examination Procedures PT Ongoing treatment Ashli Kincaid APRN C.N.P., M.S.N. [address] [place] [address] Phone: tel: fax: [facility] Referral ID Status Reason Start Date Expiration Date V isits Requested Visits Authorized [id number] Authorized 01/12/2025 04/14/2026 17 17 Encounter Details Date Type Department Care Team (Latest Contact Info) Description 02/03/2025 2:00 PM CDT Clinical Support Department of Physical Medicine and Rehabilitation in [address] [place] [address] Ashli Kincaid APRN C.N.P., M.S.N. [address] [place] [address] Imtiaz Barker M.S., P.T., D.P.T. [address] [place] [phone] Fracture Middle Finger Proximal Phalanx Displaced Sequela Left; Fracture Hand Multiple Closed Initial Left; Fracture Wrist And Hand Other Open Initial Left; Fracture Index Finger Proximal Phalanx Displaced Sequela Left; Pain Wrist Right; Fracture Wrist Closed [...] things needed for daily living? No 12/24/2024 [facility] Utilities Answer Date Recorded In the past 12 months has [employer] electric, gas, oil, or water company threatened to shut off services in your home? Patient declined 12/24/2024 Depression Answer Date Recor ded PHQ-9 Total Score (max 27) 11 10/23 Housing Stability Answer Date Recorded What is your living situatio n today? 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 - 02/03/2025 2:00 PM CDT Physical Therapy Outpatient Progress Note Patient's Name: Kirk Carter Jr. Referring Provider: Ashli Kincaid APRN, C* Reason for referral: PT evaluation and treatment in [facility] for left hand and right wrist injuries Medical Diagnosis: 1. Fracture Middle Finger Proximal Phalanx Displaced Sequela Left 2. Fracture Hand Multiple Closed Initial Left 3. Fracture Wrist And Hand Other Open Initial Left 4. Fracture Index Finger Proximal Phalanx Displaced Sequela Left 5. Pain Wrist Right 6. Fracture Wrist Closed Initial Right 7. Limitation Of Motion Finger Left 8. Return To Work Status Examination Payor: MISTY IBRAHIM / Plan: MISTY IBRAHIM / Product Type: Indemnity / Total number of physical therapy treatments to date: 2 Subjective: Mr. Carter returns reporting that he is using the yellow foam block for light left hand gripping and pinching home exercises. This remains quite challenging. He is doing well with the right hand gripping exercise using 20 lbs of resistance on gripper. He is also trying to go for walks more often too for general aerobic conditioning. Objective: Began with NuStep for 8 minute warm-up and light conditioning (seat 14, arms 14, resistance 1). Used a folded towel around left handle to allow better medical terminologist with left hand. Weight Training (1 set of 15-20 reps): Leg press: Seat 8, plate #100 Leg extension: seat back, leg 3, plate #30 Leg curls: seat 5, leg 5, plate #75 Biceps curls: 1 lb rolled cuff weight with left and 3 lbs with right Triceps (FM): plate #3 (rope with right) and level 1 band with left Wrist flexion: 1 lb rolled cuff weight with left and 1 lb right Wrist extension: 1 lb rolled cuff weight with left and 1 lb right Supination/Pronation: 1 lb rolled cuff weight with left and 1 lb right Performed the light gripping and pinching exercises using various foam blocks of different firmness. Did gripper for right hand gripping exercises with 20 lbs with resistance bands. Assessment: Mr. Carter presents with left hand pain, [...] but patient feels these areas have significantly improved. Began an overall light strengthening and conditioning program in our gym setting, as noted above. Left hand gripping exercises/activities remain very challenging due to limited mobility with left fingers. Plan: He will continue with the light home gripping and pinching exercises and follow up with him next week to assess response, advancing or modifying as appropriate. He also has hand therapy sessions to specifically work on improving left hand mobility and function. We will continue with work rehab to progress with overall strengthening and conditioning program in gym setting, as able. Functional Goals and Timeframes: Patient will improve FOTO score from 27 to 55 in 18-30 visits. Patient will report >3+ on the Global Rating of Change in 18-30 visits. 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 It appears he needs to lift a 30 lb piece of luggage with 1-2 hands. He also need to step up on to a 12-14 step. Patient will demonstrate and/or verbalize understanding of home exercise program in 1-30 visits. Patient presents with FOTO functional status score of 27 (MCII: 9 and MDC: 6) indicating general function at stage . The risk adjusted functional status score is 44. Patient is predicted to have 28 points of functional status change in 17 visits over 67 days based on normative data. Imtiaz Barker M.S., P.T., D.P.T. Time Spent with Patient Therapeutic Interventions Therapeutic Exercise (min): 55 min Time Tracking Total Timed Units (min): 55 min Total Treatment Time (min): 55 min documented in this encounter Plan of Treatment Upcoming Encounters Date Type Department Care Team (Latest Contact Info) Description 02/16/2025 1:00 PM CDT Clinical Support Department of Physical Medicine and Rehabilitation in [place], [place] [address] [place] [phone] Alexys Mensah M.B.B.S. [address] [place] [phone] Cher Kemp C.H.T., O.T. [address] [place] [phone] 02/16/2025 3:00 PM CDT Clinical Support Department of Physical Medicine and Rehabilitation in [place], [place] [address] [place] [phone] Ashli Kincaid APRN, C.NHeather, M.S.N. [address] [place] [phone] Imtiaz Barker M.S., P.T., D.P.T. [address] [place] [phone] 02/18/2025 9:00 AM CDT Clinical Support Department of Physical Medicine and Rehabilitation in [place], [place] [address] [place] [phone] Alexys Mensah M.B.B.S. [address] [place] [phone] Cher Kemp, Yelitza.H.T., O.T. [address] [place] [phone] 02/22/2025 11:00 AM APPEALS OFFICER Clinical Support Department of Physical Medicine and Rehabilitation in [address] [address] Ashli Kincaid APRN, C.NHeather, M.S.N. [address] [place] [phone] Imtiaz Barker M.S., P.T., D.P.T. [address] [place] [phone] 03/02/2025 3:00 PM APPEALS OFFICER Clinical Support Department of Physical Medicine and Rehabilitation in [address] [place] [address] Ashli Kincaid APRN, C.N.P., M.S.N. [address] [place] [phone] Imtiaz Barker M.S., P.T., D.P.T. [address] [place] [phone] 03/15/2025 10:00 AM APPEALS OFFICER Appointment Department of Radiology, [facility], in [place], [place] [address] [place] [phone] Renee Lassiter M.D. [address] [place] [phone] Discharge Disposition: Home or Self Care 03/15/2025 10:30 AM APPEALS OFFICER Office Visit Department of Orthopedic Surgery in [place], [place] [address] [place] [phone] Alexys Mensah M.B.B.S. [address] [place] [phone] 03/15/2025 11:00 AM APPEALS OFFICER Clinical Support Department of Physical Medicine and Rehabilitation in [place], [place] [address] [place] [phone] Alexys Mensah M.B.B.S. [address] [place] [phone] Cecilia Ashford P.T., C.H.T. [address] [place] [phone] 03/15/2025 1:00 PM APPEALS OFFICER Office Visit Section of Preventive, Transportation and Occupational Medicine in [place], [place] [address] [place] [phone] Ashli Kincaid APRN, C.N.P., M.S.N. [address] [place] [phone] documented as of this encounter Visit Diagnoses [...] documented as of this encounter Care Teams Batch Freezer Operator Relationship Specialty Start Date End Date Silvia Robison M.D. [address] [place] [phone] PCP - General Family Medicine 10/03/23 documented as of this encounter
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
--- OUTSIDE RECORDS SUMMARY | 2025-02-09 11:35 | XMS_ITS | Encounter Summary ---
Author Organization [facility] Address [address] [place] [address] Care Team Providers Care Lsat Instructor Name Role Phone Silvia Robison M.D. Primary Care Provider Encounter Details Date Type Department Care Team (Late st Contact Info) Description 02/09/2025 11:35 AM CDT Ancillary Procedure Department of Physical Medicine and Rehab Social History Tobacco Use Types Packs/Day Years [...] things needed for daily living? No 12/24/2024 [facility] Utilities Answer Date Recorded In [...] CDT Gender Identity Male 05/21/2020 12:19 PM [employer] Sexual Orientation Straight 07/10/2017 5: 27 PM CDT documented as of this encounter Plan of Treatment Upcoming Encounters Date Type Department Care Team (Latest Contact Info) Description 02/16/2025 1:00 PM CDT Clinical Support Department of Physical Medicine and Rehabilitation in [place], [place] 200 [place] [phone] Alexys Mensah M.B.B.S. [address] [place] [address] Cher Kemp C.H.T., O.T. [address] [place] [phone] 02/16/2025 3:00 PM CDT Clinical Support Department of Physical Medicine and Rehabilitation in [place], [place] [address] [place] [address] Ashli Kincaid APRN, C.N.P., M.S.N. [address] [place] [phone] Imtiaz Barker M.S., P.T., D.P.T. [address] [place] [phone] 02/18/2025 9:00 AM CDT Clinical Support Department of Physical Medicine and Rehabilitation in [place], [place] [address] [place] [phone] Alexys Mensah M.B.B.S. [address] [place] [phone] Cher Kemp C.H.T., O.T. [address] [place] [phone] 02/22/2025 11:00 AM [employer] Clinical Support Department of Physical Medicine and Rehabilitation in [place], [place] [address] [place] [address] Ashli Kincaid APRN, C.N.P., M.S.N. [address] [place] [phone] Imtiaz Barker M.S., P.T., D.P.T. [address] [place] [phone] 03/02/2025 3:00 PM [employer] Clinical Support Department of Physical Medicine and Rehabilitation in [place], [place] [address] [place] [address] Ashli Kincaid APRN, Yelitza.N.P., M.S.N. [address] [place] [phone] Imtiaz Barker M.S., P.T., D.P.T. [address] [place] [phone] 03/15/2025 10:00 AM [employer] Appointment Department of Radiology, [facility], in [place], [place] [address] [place] [phone] Renee Lassiter M.D. [address] [place] [phone] Discharge Disposition: Home or Self Care 03/15/2025 10:30 AM [employer] Office Visit Department of Orthopedic Surgery in [address] [phone] Alexys Mensah M.B.B.S. [address] [place] [phone] 03/15/2025 11:00 AM [employer] Clinical Support Department of Physical Medicine and Rehabilitation in [place], [place] [address] [place] [phone] Alexys Mensah M.B.B.S. [address] [place] [phone] Cecilia Ashford, Julissa., C.H.T. [address] [place] [phone] 03/15/2025 1:00 PM [employer] Office Visit Section of Preventive, Transportation and Occupational Medicine in [place], [place] [address] [place] [phone] Ashli Kincaid APRN, C.NSammP., M.S.N. [address] [place] [phone] documented as of this encounter Procedures Procedure Name Priority Date/Time Associated Diagnosis Comments PHYSICAL MEDICINE AND REHAB IMAGE EXAM Routine 02/09/2025 11:35 AM CDT documented in this encounter Results * Hand, Left-Physical Medicine And Rehab Image Exam (02/09/2025 11:35 AM CDT) 02/09/2025 11:3 2 AM CDT Narrative [facility] - 02/09/2025 1:35 PM CDT This order has been created and auto-finalized to support the import of images acquired without order. The clinical documentation to support these images can be found on the encounter that produced images. us Provider Not In System IMG NON RAD IMAGING PROCE DURES Final Result [facility] NA documented in this encounter Visit Diagnoses Not on filedocumented in this encounter Additional Health Concerns Assessment Noted Time PHQ-9 Depression Total Score: 11 10/23/ 025 6:47 AM CDT documented as of this encounter Care Teams Lsat Instructor Relationship Specialty Start Date End Date Silvia Robison M.D. [address], [place] [phone] PCP - General Family Medicine 10/03/23 documented as of this encounter
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
--- OUTSIDE RECORDS SUMMARY | 2025-02-09 13:41 | XMS_ITS | Encounter Summary ---
Author Organization [facility] Address [address] [place] [address] Care Team Providers Care Database Analyst Name Role Phone Silvia Robison M.D. Primary Care Provider Reason for Referral * Outpatient (Routine) - Closed Specialty Diagnoses / Procedures Referred By Franky zeng Referred To Contact Diagnoses Fracture Index Finger Proximal Phalanx Displaced Sequela Left Fracture Ring Finger Distal Phalanx Displaced Sequela Left Procedures DX Fingers Left 2+ Views Saba Rogers P.A.-C. [address] [place] [address] Phone: tel: fax: [facility] Referral ID Status Reason Start Date Expiration Date Visits Re quested Visits Authorized [id number] Closed 02/09/2025 05/12/2026 1 1 Reason for Visit * Outpatient (Routine) - Closed Specialty Diagnoses / Procedures Referred By Franky zeng Referred To Contact Diagnoses Fracture Index Finger Proximal Phalanx Displaced Sequela Left Fracture Ring Finger Distal Phalanx Displaced Sequela Left Procedures DX Fingers Left 2+ Views Saba Rogers P.A.-C. [address] [place] [phone] Phone: tel: fax: [facility] Referral ID Status Reason Start Date Expiration Date Visits Re quested Visits Authorized [id number] Closed 02/09/2025 05/12/2026 1 1 Encounter Details Date Type Department Care Team (Latest Contact Info) Description 02/09/2025 1:41 PM CDT - 02/09/2025 11:59 PM CDT Hospital Encounter Department of Radiology, [facility], in [place], [place] [address] [place] [phone] Saba Rogers P.A.-C. [address] [place] [phone] Fracture Index Finger Proximal Phalanx Displaced Sequela Left; Fracture Ring Finger Distal Phalanx Displaced Sequela Left Discharge Disposition: Home or Self Care [...] for daily living? 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 1 each 1 buPROPion XL (Wellbutrin XL) 150 mg 24 hr tablet TAKE 1 TABLET BY MOUTH ONCE DAILY IN THE MORNING . APPOINTMENT REQUIRED FOR FUTURE REFILLS 90 tablet 5 cloNIDine (Catapres) 0.1 mg tablet Take 1 [...] by mouth twice daily 360 tablet 3 5 ondansetron ODT (Zofran-ODT) 4 [...] as needed for pain 6 tablet 5 documented as of this encounter Plan of Treatment Upcoming Encounters Date Type Department Care Team (Latest Contact Info) Description 02/16/2025 1:00 PM CDT Clinical Support Department of Physical Medicine and Rehabilitation in [place], [place] [address] [place] [phone] Alexys Mensah M.B.B.S. [address] [place] [phone] Cher Kemp, C.H.T., O.T. [address] [place] [phone] 02/16/2025 3:00 PM CDT Clinical Support Department of Physical Medicine and Rehabilitation in [place], [place] [address] [facility] [place] [address] Ashli Kincaid APRN, C.N.P., M.S.N. [address] [place] [phone] Imtiaz Barker, Hermes.S., P.T., D.P.T. [address] [place] [phone] 02/18/2025 9:00 AM CDT Clinical Support Department of Physical Medicine and Rehabilitation in [place], [place] [address] [place] [phone] Alexys Mensah M.B.B.S. [address] [place] [phone] Cher Kemp C.H.T., O.T. 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 [address] [place] [phone] Imtiaz Barker M.S., P.T., D.P.T. [address] [place] [phone] 03/02/2025 3:00 PM PIPE FITTER APPRENTICE Clinical Support Department of Physical Medicine and Rehabilitation in [address] [phone] Ashli Kincaid APRN, C.N.P., M.S.N. [address] [place] [phone] Imtiaz Barker M.S., P.T., D.P.T. 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 [address] [place] [phone] Discharge Disposition: Home or Self Care 03/15/2025 10:30 AM PIPE FITTER APPRENTICE Office Visit Department of Orthopedic Surgery in [place], [place] [address] [place] [phone] Alexys Mensah M.B.B.S. [address] [place] [phone] 03/15/2025 11:00 AM PIPE FITTER APPRENTICE Clinical Support Department of Physical Medicine and Rehabilitation in [place], [place] [address] [place] [phone] Alexys Mensah M.B.B.S. [address] [place] [phone] Cecilia Ashford P.T., C.H.T. [address] [place] [phone] 03/15/2025 1:00 PM PIPE FITTER APPRENTICE Office Visit Section of Preventive, Transportation and Occupational Medicine in [place], [place] [address] [place] [phone] Ashli Kincaid APRN, C.N.P., M.S.N. [address] [place] [phone] documented as of this encounter Procedures Procedure Name Priority Date/Time Associated Diagnosis Comments DX FINGERS LEFT 2+ VIEWS RAD - Routine (most inpatients and all outpatients) 02/09/2025 1:59 PM CDT Fracture Index Finger Proximal Phalanx Displaced Sequela Left Fracture Ring Finger Distal Phalanx Displaced Sequela Left documented in this encounter Results * DX Fingers Left 2+ Views (02/09/2025 1:59 PM CDT) Anatomical Region Laterality Modality Upper Extremity, Fingers, Mu sculoskeletal RST LOS, Musculoskeletal ARZ LOS, Muskuloskeletal FLA LOS Left Digit al Radiography Impressions 02/09/2025 2:58 PM CDT Healing comminuted fracture of the left index finger distal phalangeal tuft. Three small radiodense foreign bodies are located within the soft tissues of the finger tip. Compared to initial imaging, the largest foreign body has migrated dorsally and now extends through the skin surface. Irregularity of the adjacent nail bed. Allowing for fracture-related changes, no new findings to suggest osteomyelitis. Since 01/12/2025, interval removal of the K-wire from the left middle finger proximal phalangeal base. Healing mildly displaced intraarticular fractures of the index, middle, and small finger proximal phalangeal bases. Healing comminuted intraarticular fracture of the ring finger metacarpal head and neck. The thumb phalangeal fracture is not included on today's images. Demineralization. Soft tissue swelling. Narrative 02/09/2025 2:58 PM CDT EXAM: DX FINGERS LEFT 2+ VIEWS Procedure Note Emilee Stinson M.D. - 02/09/2025 EXAM: DX FINGERS LEFT 2+ VIEWS IMPRESSION: Healing comminuted fracture of the left index finger distal phalangealtuft. Three small radiodense foreign bodies are located within the softtissues of the finger tip. Compared to initial imaging, the largestforeign body has migrated dorsally and now extends through the skinsurface. Irregularity of the adjacent nail bed. Allowing forfracture-related changes, no new findings to suggest osteomyelitis. Since 01/12/2025, interval removal of the K-wire from the left middlefinger proximal phalangeal base. Healing mildly displaced intraarticularfractures of the index, middle, and small finger proximal phalangealbases. Healing comminuted intraarticular fracture of the ring fingermetacarpal head and neck. The thumb phalangeal fracture is not included ontoday's images. Demineralization. Soft tissue swelling. Saba Rogers P.A.-C. [facility] Final Result documented in this encounter Visit Diagnoses Diagnosis Fracture Index Finger Proximal Phalanx Displaced Sequela Left Fracture Ring Finger Distal Phalanx Displaced Sequela Left documented in this encounter Additional Health Concerns Assessment Noted Time PHQ-9 Depression Total Score: 11 10/23/ 025 6:47 AM CDT documented as of this encounter Care Teams Database Analyst Relationship Specialty Start Date End Date Silvia Robison M.D. [address] [place] [phone] PCP - General Family Medicine 10/03/23 documented as of this encounter
--- OUTSIDE RECORDS SUMMARY | 2025-02-09 15:00 | XMS_ITS | Encounter Summary ---
Author Organization [facility] Address [address] [place] [address] Care Team Providers Care Tube Winder Hand Name Role Phone Silvia Robison M.D. [...] treatment Ashli Kincaid APRN C.N.P., M.S.N. [address] [place] [address] Phone: tel: fax: [facility] Referral ID Status Reason Start Date Expiration Date V isits Requested Visits Authorized [id number] Authorized 01/12/2025 04/14/2026 17 17 Encounter Details Date Type Department Care Team (Latest Contact Info) Description 02/09/2025 3:00 PM CDT Clinical Support Department of Physical Medicine and Rehabilitation in [address] [place] [address] Ashli Kincaid APRN C.N.P., M.S.N. [address] [place] [phone] Imtiaz Barker M.S., P.T., D.P.T. [address] [place] [address] Fracture Middle Finger Proximal Phalanx Displaced Sequela [...] needed for daily living? 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 - 02/09/2025 3:00 PM CDT Physical Therapy Outpatient Progress Note [...] number of physical therapy treatments to date: 3 Subjective: Mr. Carter returns reporting that he is using the pink foam block for light left hand gripping and pinching home exercises. This remains quite challenging. He is doing well with the right hand gripping exercise using 20 lbs of resistance on gripper. He is also walking more often for general aerobicconditioning. Objective: Began with NuStep for 10 minute warm-up and light conditioning (seat 14, arms 14, resistance 1). Hedidn't need to use a folded towel around left handle today. Weight Training (2 sets of 10 reps): Leg press: Seat 8, plate #100 Lat pull down: sitting on leg rest, plate #1 Leg extension: seat back, leg 3, plate #30 Leg curls: seat 5, leg 5, plate #75 TRX: slight leaning back and side step while holding on to TRX Biceps curls: 2 lb weight with left and 5 lbs with right Triceps rope: plate #9 on right and plate #2.5 on left Wrist flexion: 1 lb rolled cuff weight with left and 2 lb hammer on right Wrist extension: 1 lb rolled cuff weight with left and 2 lb hammer on right Supination/Pronation: 1 lb rolled cuff weight with left and 2 lb hammer on right Reviewed the light gripping and pinching exercises using various foam blocks of different firmness.Using gripper for right hand gripping exercises with 20 lb resistance bands. Assessment: Mr. Carter presents with [...] patient feels these areas have significantly improved. We continued to progress with overall light strengthening and conditioning program in our gym setting, as noted above. Left hand gripping exercises/activities remain very challenging due to limited mobility with left fingers, but his gripping ability is better compared to last session. Plan: He will continue with the light home gripping and pinching exercises and follow up with him next week to assess response, advancing or modifying as appropriate. 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 It appears he needs to lift a 30 lb piece of luggage with 1-2 hands. He also needs to step up on to a 14 step. Patient will demonstrate and/or verbalize understanding [...] with Patient Therapeutic Interventions Therapeutic Exercise (min): 56 min Time Tracking Total Timed Units (min): 56 min Total Treatment Time (min): 56 min documented in this encounter Plan of Treatment Upcoming Encounters Date Type Department Care Team (Latest Contact Info) Description 02/16/2025 1:00 PM CDT Clinical Support Department of Physical Medicine and Rehabilitation in [place], [place] [address] [place] [phone] Alexys Mensah M.B.B.S. [address] [place] [phone] Cehr Kemp C.HLavonne., O.T. [address] [place] [phone] 02/16/2025 3:00 PM CDT Clinical Support Department of Physical Medicine and Rehabilitation in [place], [place] [address] [place] [address] Ashli Kincaid APRN, Yelitza.N.Andrew, M.S.N. [address] [place] [phone] Imtiaz Barker M.S., P.T., D.P.T. [address] [place] [phone] 02/18/2025 9:00 AM CDT Clinical Support Department of Physical Medicine and Rehabilitation in [place], [place] [address] [place] [phone] Alexys Mensah M.B.B.S. [address] [place] [phone] Cher Kemp, Yelitza.H.T., O.T. [address] [place] [phone] 02/22/2025 11:00 AM VISITING TEACHER Clinical Support Department of Physical Medicine and Rehabilitation in [place], [place] [address] [place] [address] Ashli Kincaid APRN, C.N.Andrew, M.S.N. [address] [place] [phone] Imtiaz Barker M.S., P.T., D.P.T. [address] [place] [phone] 03/02/2025 3:00 PM VISITING TEACHER Clinical Support Department of Physical Medicine and Rehabilitation in [place], [place] [address] [place] [address] Ashli Kincaid APRN, C.NMago., M.S.N. [address] [place] [phone] Imtiaz Barker M.S., P.T., D.P.T. [address] [place] [phone] 03/15/2025 10:00 AM VISITING TEACHER Appointment Department of Radiology, [facility], in [place], [place] [address] [place] [phone] Renee Lassiter M.D. [address] [place] [phone] Discharge Disposition: Home or Self Care 03/15/2025 10:30 AM VISITING TEACHER Office Visit Department of Orthopedic Surgery in [place], [place] [address] [place] [phone] Alexys Mensah M.B.B.S. [address] [place] [phone] 03/15/2025 11:00 AM VISITING TEACHER Clinical Support Department of Physical Medicine and Rehabilitation in [place], [place] [address] [place] [phone] Alexys Mensah M.B.B.S. [address] [place] [phone] Cecilia Ashford P.T., C.H.T. [address] [place] [phone] 03/15/2025 1:00 PM VISITING TEACHER Office Visit Section of Preventive, Transportation and Occupational Medicine in [place], [place] [address] [place] [phone] FucAshli ellison APRN, C.N.P., M.S.N. [address] [place] [phone] documented as of this encounter Visit Diagnoses [...] documented as of this encounter Care Teams Tube Winder Hand Relationship Specialty Start Date End Date Silvia Robison M.D. [address] [place] [phone] PCP - General Family Medicine 10/03/23 documented as of this encounter
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
--- OUTSIDE RECORDS SUMMARY | 2025-02-15 13:20 | XMS_ITS | Clinical Summary ---
Author Organization [facility] Address [address] [place] [address] Care Team Providers Care Craft Recruiter Name Role Phone None, Pcp Primary Care [...] (12/27/2020): Added automatically from request for surgery [id number] Type 2 diabetes mellitus without complication Overview [...] Erectile dysfunction 09/23/2017 Carpal tunnel syndrome 06/18/2017 Immunizations Immunization Administration Dates Next Due HepB-CpG [...] on patient's age to complete this topic Insurance MISTY DELEON Care Teams Craft Recruiter Relationship Specialty Start Date End Date None, Pcp [address] [place] [phone] PCP - General Corduroy Cutting Supervisor 02/18/18
--- OUTSIDE RECORDS SUMMARY | 2025-02-15 13:20 | XMS_ITS | Clinical Summary ---
Author Organization [facility] Address [address] [place] [address] Care Team Providers Care Design Project Manager Name Role Phone Silvia Robison MD [...] Trileptal and was diagnosed with bipolar in [place]. -many acute stressors such as needing to [...] (06/19/2022): Added automatically from request for surgery [id number] Added automatically from request for surgery [id number] Type 2 diabetes mellitus without complication Overview (01/29/2025): Last A1C 7.5 03/2020 - metformin 1 [...] to bring log in appointment in june Diagnosis Code replaced due to regulatory update Erectile dysfunction 09/23/2017 Overview (06/19/2022): Previously on [...] Type Department Care Team Description 12/17/2024 Telephone [facility] [address] [place] [address] Drake Cook MD Refill Request (Methocarbamol) from Last 3 Months Immunizations Immunization Administration [...] PM CDT 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 Gender Identity Male 07/10/2023 12:20 PM CDT Sexual Orientation Straight 07/10/2023 12 :20 PM CDT Obstetrics History Last Filed Vital Signs Vital Sign Reading Time Taken Comments Blood Pressure 139/94 10/24/2024 6:15 AM CDT Pulse 83 10/24/2024 6:15 AM CDT Temperature 36.7 C (98 F) 10/24/2024 3:57 AM CDT Respiratory Rate 20 10/24/2024 3:57 AM CDT Oxygen Saturation 94% 10/24/2024 6:15 [...] for age 12+ 07/08/2024 07/09/2023, 07/09/2023, 07/09/2023 Influenza Vaccine (#1) 2024 Lipids for age 45-75 07/08/2028 07/09/2023, 06/22/2022 (Verified in Care Everywhere or Patient Record) Tetanus booster 10/14/2029 10/15/2019 RSV vaccine for adults or (1 - 1-dose 75+ series) 10/14/2047 Hepatitis B series for 19+ Completed 05/12, 07/20/2020, 10/15/2019 Pneumococcal series for age 50+ Completed 3 Procedures Procedure Name Priority Date/Time Associated Diagnosis Comments LIPID PANEL W REFLEX MEASURED LDL Routine 07/09/2023 10:31 AM CDT Hyperlipidemia, unspecified hyperlipidemia type from Last 3 Months or Most Recently Relevant to Health Maintenance Results * (ABNORMAL) LIPID PANEL W REFLEX MEASURED LDL (07/09/2023 10:31 AM CDT) CHOLESTEROL,TOTAL 132 100 - 199 mg/dL 07/09/2023 2:52 PM CDT [facility] Comment: Cholesterol, Total Reference Ranges Desirable <200 mg/dL Borderline 200-239 mg/dL High >=240 mg/dL TRIGLYCERIDES 225(H) <150 mg/dL 07/09/2023 2:52 PM CDT [facility] HDL CHOLESTEROL 35(L) >40 mg/dL 2:52 PM CDT [facility] NON-HDL CHOLESTEROL 97 <145 mg/dl 07/09/2023 2:52 PM CDT [facility] CHOL/HDL RATIO 3.77 <4.50 07/09/2023 2:52 PM CDT [facility] LDL CHOLESTEROL 52 <=130 mg/dL 07/09/2023 2:52 PM CDT [facility] VLDL CHOLESTEROL 45(H) <=30 mg/dL 07/09/2023 2:52 PM CDT [facility] PROVIDER ORDERED STATUS FASTING 07/09/2023 2:52 PM CDT [facility] Blood BLOOD SPECIMEN / Unknown Venipuncture / Unknown 07/09/2023 10:31 AM CDT 07/09/2023 10:32 AM CDT us Leeroy Anderson PA CHEMISTRY Final Resul t [facility] [address] [place] [phone], from Last 3 Months or Most Recently Relevant to Health Maintenance Insurance [employer] [facility] NATHAN PARKER [id number] Care Teams Design Project Manager Relationship Specialty Start Date End Date Silvia Robison MD [address] [place] [address] PCP - General Family Practice 09/02/23
--- OUTSIDE RECORDS SUMMARY | 2025-02-15 13:20 | XMS_ITS | Patient Health Record ---
Author Organization [facility], [facility] Address [address] [place] [address] Care Team Providers Care Sales Representative Health Insurance Name Role Phone Mohamud IGLESIAS, Jona Unavailable [phone] Reason For Referral No Information Plan Of Treatment No Information Insurance Providers Payer Name Payer Address Payer Phone Subscriber Number Group Number Insured Name Patient Relationship to Insured Coverage Start Date Coverage End Date Balta Ocampo [facility] [address] [place] [address] Kirk Carter Self - patient is the insured [facility] [address] [place] [address] Kirk Carter Self - patient is the insured [employer] [id number] [place] [address] [phone] Kirk Carter Self - patient is the insured
--- OUTSIDE RECORDS SUMMARY | 2025-02-15 14:09 | XMS_ITS | Encounter Summary ---
Author Organization [facility] Address [address] [place] [address] Care Team Providers Care Tire Trucker Name Role Phone Silvia Robison M.D. Primary Care Provider Reason for Visit * Reason Comments Hyperglycemia Encounter Details Date Type Department Care Team (Late st Contact Info) Description 02/15/2025 2:09 PM CDT Emergency [facility] [address] [place] [phone] Social History Tobacco Use Types Packs/Day Years [...] things needed for daily living? 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 [address] [place] [phone] Cher Kemp C.HSammT., O.T. [address] [place] [phone] 02/16/2025 3:00 PM CDT Clinical Support Department of Physical Medicine and Rehabilitation in [place], [place] [address] [place] [address] Ashli Kincaid APRN, C.N.P., M.S.N. [address] [place] [phone] Imtiaz Barker MJohnny., P.T., D.P.T. [address] [place] [phone] 02/18/2025 9:00 AM CDT Clinical Support Department of Physical Medicine and Rehabilitation in [place], [place] [address] [place] [phone] Alexys Mensah M.B.B.S. [address] [place] [phone] Cher Kemp C.HLavonne., O.T. [address] [place] [phone] 02/22/2025 11:00 AM [facility] Clinical Support Department of Physical Medicine and Rehabilitation in [place], [place] [address] [place] [address] Ashli Kincaid APRN, C.N.P., M.S.N. [address] [place] [phone] Imtiaz Barker M.S., P.T., D.P.T. [address] [place] [phone] 03/02/2025 3:00 PM WOOD BOAT BUILDER SUPERVISOR Clinical Support Department of Physical Medicine and Rehabilitation in [place], [place] [address] [facility] [place] [address] Ashli Kincaid APRN, C.N.P., M.S.N. [address] [place] [phone] Imtiaz Barker M.S., P.T., D.P.T. [address] [place] [phone] 03/15/2025 10:00 AM WOOD BOAT BUILDER SUPERVISOR Appointment Department of Radiology, [facility], in [place], [place] [address] [place] [phone] Renee Lassiter M.D. [address] [place] [phone] Discharge Disposition: Home or Self Care 03/15/2025 10:30 AM WOOD BOAT BUILDER SUPERVISOR Office Visit Department of Orthopedic Surgery in [place], [place] [address] [place] [phone] Alexys Mensah M.B.B.S. [address] [place] [phone] 03/15/2025 11:00 AM WOOD BOAT BUILDER SUPERVISOR Clinical Support Department of Physical Medicine and Rehabilitation in [place], [place] [address] [place] [phone] Alexys Mensah M.B.B.S. [address] [place] [phone] Cecilia Ashford, PLavonne., C.H.T. [address] [place] [phone] 03/15/2025 1:00 PM WOOD BOAT BUILDER SUPERVISOR Office Visit Section of Preventive, Transportation and Occupational Medicine in [place], [place] [address] [place] [phone] Ashli Kincaid APRN, C.N.P., M.S.N. [address] [place] [phone] documented as of this encounter Visit Diagnoses Not on filedocumented in this encounter Additional Health Concerns Assessment Noted Time PHQ-9 Depression Total Score: 11 10/23/ 025 6:47 AM CDT documented as of this encounter Care Teams Tire Trucker Relationship Specialty Start Date End Date Silvia Robison M.D. [address] [place] [phone] PCP - General Family Medicine 10/03/23 documented as of this encounter
--- OUTSIDE RECORDS SUMMARY | 2025-02-15 14:20 | XMS_ITS | Encounter Summary ---
Author Organization [facility] Address [address] [place] [address] Care Team Providers Care Central Office Repairer Supervisor Name Role Phone Silvia Robison M.D. Primary Care Provider Reason for Visit * Reason Comments Med Refill Encounter Details Date Type Department Care Team (Late st Contact Info) Description 01/30/2025 Refill Department of Family Medicine, [facility], in [place], [place] [address] [place] [phone] Silvia Robison M.D. [address] [place] [phone] Med Refill Social History Tobacco Use [...] for daily living? No 12/24/2024 [facility] Utilities Answer Date Recorded In the past 12 months has e electric, gas, oil, or water [employer] threatened to shut off services in your home? Patient declined 12/24/2024 Depression Answer Date Recor ded PHQ-9 Total Score (max 27) 11 10/23 Housing Stability Answer Date Recorded What is your living situatio n today? 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 [address] [place] [phone] Cher Kemp C.H.T., O.T. [address] [place] [phone] 02/16/2025 3:00 PM CDT Clinical Support Department of Physical Medicine and Rehabilitation in [place], [place] [address] [place] [phone] Ashli Kincaid APRN, C.NHeather, M.S.N. [address] [place] [phone] Imtiaz Barker M.S., P.T., D.P.T. [address] [place] [phone] 02/18/2025 9:00 AM CDT Clinical Support Department of Physical Medicine and Rehabilitation in [place], [place] [address] [place] [phone] Alexys Mensah M.B.B.S. [address] [place] [phone] Cher Kemp C.H.Thad., O.T. [address] [place] [phone] 02/22/2025 11:00 AM PIPE JEEPER Clinical Support Department of Physical Medicine and Rehabilitation in [place], [place] [address] [place] [phone] Ashli Kincaid APRN, C.NHeather, M.S.N. [address] [place] [phone] Imtiaz Barker M.S., P.T., D.P.T. [address] [place] [phone] 03/02/2025 3:00 PM PIPE JEEPER Clinical Support Department of Physical Medicine and Rehabilitation in [place], [place] [address] [facility] [place] [address] Ashli Kincaid APRN, C.N.P., M.S.N. [address] [place] [phone] Imtiaz Barker M.S., P.T., D.P.T. [address] [place] [phone] 03/15/2025 10:00 AM PIPE JEEPER Appointment Department of Radiology, [facility], in [place], [place] [address] [place] [phone] Renee Lassiter M.D. [address] [place] [phone] Discharge Disposition: Home or Self Care 03/15/2025 10:30 AM PIPE JEEPER Office Visit Department of Orthopedic Surgery in [place], [place] [address] [place] [phone] Alexys Mensah M.B.B.S. [address] [place] [phone] 03/15/2025 11:00 AM PIPE JEEPER Clinical Support Department of Physical Medicine and Rehabilitation in [place], [place] [address] [place] [phone] Alexys Mensah M.B.B.S. [address] [place] [phone] Cecilia Ashford P.T., C.H.T. [address] [place] [phone] 03/15/2025 1:00 PM PIPE JEEPER Office Visit Section of Preventive, Transportation and Occupational Medicine in [place], [place] [address] [place] [phone] Ashli Kincaid APRN, C.N.P., M.S.N. [address] [place] [phone] documented as of this encounter Visit Diagnoses Not on filedocumented in this encounter Additional Health Concerns Assessment Noted Time PHQ-9 Depression Total Score: 11 10/23/ 025 6:47 AM CDT documented as of this encounter Care Teams Central Office Repairer Supervisor Relationship Specialty Start Date End Date Silvia Robison M.D. [address] [place] [phone] PCP - General Family Medicine 10/03/23 documented as of this encounter
--- OUTSIDE RECORDS SUMMARY | 2025-02-15 14:22 | XMS_ITS | Encounter Summary ---
Author Organization [facility] Address [address] [place] [phone] Care Team Providers Care Street Openings Inspector Name Role Phone Silvia Robison M.D. Primary Care Provider Encounter Details Date Type Department Care Team (Late st Contact Info) Description 02/11/2025 Documentation Department of Orthopedic Surgery in [place], [place] [address] [place] [phone] Saba Rogers P.A.-C. [address] [place] [phone] Social History Tobacco Use Types Packs/Day Years [...] things needed for daily living? 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 - 02/11/2025 3:47 PM CDT CC: 54-year-old gentleman is seen approximately 3 months status post multiple fractures of the left-hand Subjective: Mr. Carter was last evaluated by our team approximately 1 month ago for management of multiple fractures of the left-hand. He underwent CRPP of a left middle finger proximal phalanx fracture and K-wire was removed at the 01/12 visit. Patient also sustained an intra-articular fracture of the left index finger proximal phalanx & small finger proximal phalanx. Patient also sustained comminuted fractures of the tuft of the middle and ring finger distal phalanx. He was noted to have dense calcification on the dorsal aspect of the ring finger distal phalanx. Patient has been following with the hand therapist for ongoing edema management, range of motion exercises, and pain management. I was contacted by the hand therapist for evaluation given ongoing pain and swelling. Objective: Patient has significant pain and swelling in the left-hand. He is noted to have skin changes concerning for sympathetic dystrophy. Skin is somewhat shiny and waxy. He has mottled/skin changes over the volar aspect of his entire hand. Patient has significant decreased range of motion of the fingers and ongoing pain. Patient continues to be exquisitely tender with palpation over the index finger proximal phalanx. He also endorses pain with gentle palpation over the dorsal aspect of his hand at the level of the metacarpals. He has significant pain with range of motion of the PIP joints of all finger Ring finger nailbed demonstrates callus/foreign body concerning for possible bony fragment which isvery tender with palpation. Imaging: X-rays were updated and demonstrate removal of the K-wire from the middle finger proximal phalanx. 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 He also has a dense calcification at the distal aspect of the ring finger Assessment/plan: Patient is seen in coordination with the hand therapist to discuss ongoing pain and swelling of theleft-hand. Unfortunately, patient does have symptoms concerning for sympathetic dystrophy/complex regional pain syndrome. We discussed this in detail and possible management options. I would like the patient to continue aggressive hand therapy. I do think it would be reasonable to trial a Medrol Dosepak to help with pain and swelling in the left-hand. I reached out the patient's primary care provider given insulin dependent type 2 diabetes mellitus. Patient's primary care provider would like him to increase his Lantus to 46 units daily (from 42 units daily) while on steroids as well as close dietary monitoring. This was discussed in detail with the patient. Patient was provided with a prescription for a Medrol Dosepak. Updated x-rays were reviewed with the patient and photos were obtained of the left ring finger nailbed. At this time, we will continue to manage conservatively. If patient continues to have pain without further migration of the foreign body/fragment, he may require operative intervention. He knows to monitor for any increased pain, swelling, erythema, or concern for infection. Patient has no further questions or concerns at this time. documented in this encounter Plan of Treatment Upcoming Encounters Date Type Department Care Team (Latest Contact Info) Description 02/16/2025 1:00 PM CDT Clinical Support Department of Physical Medicine and Rehabilitation in [place], [place] [address] [place] [phone] Alexys Mensah M.B.B.S. [address] [place] [phone] Cher Kemp, C.H.T., O.T. [address] [place] [phone] 02/16/2025 3:00 PM CDT Clinical Support Department of Physical Medicine and Rehabilitation in [place], [place] [address] [facility] [place] [address] Ashli Kincaid APRN, C.N.P., M.S.N. [address] [place] [phone] Itmiaz Barker, Hermes.S., P.T., D.P.T. [address] [place] [phone] 02/18/2025 9:00 AM CDT Clinical Support Department of Physical Medicine and Rehabilitation in [place], [place] [address] [place] [phone] Alexys Mensah M.B.B.S. [address] [place] [phone] Cher Kemp C.HLavonne., O.T. [address] [place] [phone] 02/22/2025 11:00 AM MANAGER ROUTE Clinical Support Department of Physical Medicine and Rehabilitation in [address] [phone] Ashli Kincaid APRN, Yelitza.NHeather, M.S.N. [address] [place] [phone] Imtiaz Barker M.S., P.T., D.P.T. [address] [place] [phone] 03/02/2025 3:00 PM MANAGER ROUTE Clinical Support Department of Physical Medicine and Rehabilitation in [address] [address] Ashli Kincaid APRN, C.NHeather, M.S.N. [address] [place] [phone] Imtiaz Barker M.S., P.T., D.P.T. [address] [place] [phone] 03/15/2025 10:00 AM MANAGER ROUTE Appointment Department of Radiology, [facility], in [place], [place] [address] [place] [phone] Renee Lassiter M.D. [address] [place] [phone] Discharge Disposition: Home or Self Care 03/15/2025 10:30 AM MANAGER ROUTE Office Visit Department of Orthopedic Surgery in [place], [place] [address] [place] [phone] Alexys Mensah M.B.B.S. [address] [place] [phone] 03/15/2025 11:00 AM MANAGER ROUTE Clinical Support Department of Physical Medicine and Rehabilitation in [place], [place] [address] [place] [phone] Alexys Mensah M.B.B.S. [address] [place] [phone] Cecilia Ashford P.T., C.H.T. [address] [place] [phone] 03/15/2025 1:00 PM MANAGER ROUTE Office Visit Section of Preventive, Transportation and Occupational Medicine in [place], [place] [address] [place] [phone] Ashli Kincaid APRN, C.N.P., M.S.N. [address] [place] [phone] documented as of this encounter Visit Diagnoses Not on filedocumented in this encounter Additional Health Concerns Assessment Noted Time PHQ-9 Depression Total Score: 10/23/ 025 6:47 AM CDT documented as of this encounter Care Teams Street Openings Inspector Relationship Specialty Start Date End Date Silvia Robison M.D. [address] [place] [phone] PCP - General Family Medicine 10/03/23 documented as of this encounter
--- OUTSIDE RECORDS SUMMARY | 2025-02-15 14:22 | XMS_ITS | Encounter Summary ---
Author Organization [facility] Address [address] [place] [address] Care Team Providers Care Rehab Aide Name Role Phone Silvia Robison M.D. Primary Care Provider Reason for Referral * Physical Therapy (Routine) - Authorized Specialty Diagnoses / Procedures Referred By Franky zeng Referred To Contact Diagnoses Fracture Hand Multiple Closed Initial Left Procedures PT or OT eval and treat (first available) Chikis Ware APRN, C.N.P. [address] [place] [phone] Phone: tel: fax: [facility] Referral ID Status Reason Start Date Expiration Date V isits Requested Visits Authorized [id number] Authorized 12/23/2024 03/25/2026 1 1 Encounter Details Date Type Department Care Team (Late st Contact Info) Description 12/23/2024 Orders Only Department of Orthopedic Surgery in [place], [place] [address] [place] [phone] Chikis Ware APRN, C.N.P. [address] [place] [phone] Fracture Hand Multiple Closed Initial Left (Primary [...] things needed for daily living? 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 [address] [place] [phone] Cher Kemp, C.H.T., O.T. [address] [place] [phone] 02/16/2025 3:00 PM CDT Clinical Support Department of Physical Medicine and Rehabilitation in [address] [phone] Ashli Kincaid APRN, Yelitza.N.P., M.S.N. [address] [place] [phone] Imtiaz Barker M.S., P.T., D.P.T. [address] [place] [phone] 02/18/2025 9:00 AM CDT Clinical Support Department of Physical Medicine and Rehabilitation in [place], [place] [address] [place] [phone] Alexys Mensah M.B.B.S. [address] [place] [phone] Cher Kemp C.HLavonne., O.T. [address] [place] [phone] 02/22/2025 11:00 AM MARKET RISK MANAGER Clinical Support Department of Physical Medicine and Rehabilitation in [address] [address] Ashli Kincaid APRN, C.N.P., M.S.N. [address] [place] [phone] Imtiaz Barker M.S., P.T., D.P.T. [address] [place] [phone] 03/02/2025 3:00 PM MARKET RISK MANAGER Clinical Support Department of Physical Medicine and Rehabilitation in [address] [address] Ashli Kincaid APRN, C.N.P., M.S.N. [address] [place] [phone] Imtiaz Barker M.S., P.T., D.P.T. [address] [place] [phone] 03/15/2025 10:00 AM MARKET RISK MANAGER Appointment Department of Radiology, [facility] [place], in [place], [place] [address] [place] [phone] Renee Lassiter M.D. [address] [place] [phone] Discharge Disposition: Home or Self Care 03/15/2025 10:30 AM MARKET RISK MANAGER Office Visit Department of Orthopedic Surgery in [place], [place] [address] [place] [phone] Alexys Mensah M.B.B.S. [address] [place] [phone] 03/15/2025 11:00 AM MARKET RISK MANAGER Clinical Support Department of Physical Medicine and Rehabilitation in [place], [place] [address] [place] [phone] Alexys Mensah M.B.B.S. [address] [place] [phone] Cecilia Ashford P.T., C.H.T. [address] [place] [phone] 03/15/2025 1:00 PM MARKET RISK MANAGER Office Visit Section of Preventive, Transportation and Occupational Medicine in [place], [place] [address] [place] [phone] Ashli Kincaid APRN, C.N.P., M.S.N. [address] [place] [phone] documented as of this encounter Visit Diagnoses Diagnosis Fracture Hand Multiple Closed Initial Left- Primary documented in this encounter Additional Health Concerns Assessment Noted Time PHQ-9 Depression Total Score: 11 10/23/ 025 6:47 AM CDT documented as of this encounter Care Teams Rehab Aide Relationship Specialty Start Date End Date Silvia Robison M.D. [address] [place] [phone] PCP - General Family Medicine 10/03/23 documented as of this encounter
--- OUTSIDE RECORDS SUMMARY | 2025-02-15 14:22 | XMS_ITS | Clinical Summary ---
Author Organization [facility] Address [address] [place] [address] Care Team Providers Care Pumper Gager Apprentice Name Role Phone Silvia Robison M.D. Primary Care Provider Source Comments Patient records contain information from all sites at [facility]. For routine questions regarding patient records, call [phone] during business hours, M-F 8:00 AM - 5:00 PM Central Time. Record requests for emergency care only can be directed to [phone] at any time.[facility] Allergies Active Allergy Reactions Criticality Noted Date [...] total) by mouth daily. 90 tablet 3 Active gabapentin (Neurontin) 300 mg capsuleIndication s:Neuropathy Take 1 capsule in the morning, 2 capsules in the afternoon and 3 at bedtime 180 capsule 11 Active semaglutide (Ozempic) 0.25 mg or 0.5 mg (2 mg/3 mL) injectionIndicati ons:Diabetes Mellitus Type 2 Without Complication (HCC) Inject 0.5 mg under the skin every 7 (seven) days. 9 mL 025 2025 Active allopurinoL (Zyloprim) 100 mg tablet Take 1 tablet by mouth twice daily 180 tablet 3 Active atorvastatin (Lipitor) 20 mg tablet Take 1 tablet by mouth once daily 90 tablet 3 025 Active cloNIDine (Catapres) 0.1 mg tablet Take 1 tablet by mouth twice daily 180 tablet 3 Active Jardiance 25 mg tabletIndications :Diabetes Mellitus Type 2 Hyperglycemia (HCC) TAKE 1 TABLET BY MOUTH ONCE DAILY BEFORE MEAL(S) IN THE MORNING 90 tablet 025 Active labetaloL 200 mg tablet Take 1 tablet by mouth twice daily 180 tablet 3 025 Active lisinopriL 40 mg tablet Take 1 tablet by mouth once daily 90 tablet 3 025 Active sennosides (Senokot) 8.6 mg tablet [...] REQUIRED FOR FUTURE REFILLS 90 tablet Active metFORMIN XR (Glucophage-XR) 500 mg 24 hr tablet Take 2 tablets by mouth twice daily 360 tablet 3 Active methylPREDNISolon e (MedroL DosePak) 4 mg tablet Take by mouth as directed by package instructions 21 tablet 02/12/20 25 10:59 AM CDT Active metFORMIN XR (Glucophage-XR) 500 mg 24 hr tablet Take 2 tablets by mouth twice daily 360 tablet 025 2024 Discontinued buPROPion XL (Wellbutrin XL) 150 mg 24 hr tablet Take 1 tablet (150 mg total) by mouth every morning. Needs an appointment for further refills 90 tablet 025 2024 Discontinued Hospital, Clinic, or Other Facility Administered Medication [...] 2019 Assessment & Plan (05/17/2022 5:03 PM SURGICAL COORDINATOR): -continue to monitor. -consider liver ultrasound to [...] gout Assessment & Plan (05/17/2022 4:58 PM SURGICAL COORDINATOR): -Blood pressures in clinic were at goal today -Continue to monitor. Depressive Disorder 05/17/2022 Overview (05/17/2022): 22 April 2022: PHQ = 24 -patient tells me he has previously been on Paxil, lithium, Trileptal and was diagnosed with bipolar in [place]. -many acute stressors such as needing to find new housing, financial stress, and employment stress. Assessment & Plan (05/17/2022 5:16 PM SURGICAL COORDINATOR): -increase Wellbutrin that was previously prescribed for [...] nasal Assessment & Plan (05/17/2022 5:05 PM SURGICAL COORDINATOR): -Will obtain more history at next visit -Consider ENT referral/ CT sinus/maxillofacial Nicotine Dependence Cigarettes In Remission 06/22 Overview (05/17/2022): -Quit smoking 2020 -On Wellbutrin - still smokes but she is involved at Nicotine dependency clinic Assessment & Plan (05/17/2022 4:49 PM SURGICAL COORDINATOR): -Increase Wellbutrin from 150 to 300 in [...] mass. Assessment & Plan (05/17/2022 4:57 PM SURGICAL COORDINATOR): -At one of his emergency department visits [...] 3 days Chronic: recommended checking with Samm Shayy 1) is there a concern about allopurinol and your kidney stones? 2) what is the best dose of allopurinol - uric acid should be below 5-6 (last time it was checked was September 2019 and it was 9.0) Gastroesophageal Reflux Disease 09/23/2017 Overview (05/17/2022): Protonix 40 b.i.d. PPIs started in 2017 Assessment & Plan (05/17/2022 4:55 PM SURGICAL COORDINATOR): -Continue protonix 40mg BID -At next appointment [...] (07/15/2019): Added automatically from request for surgery [id number] Pain Hand Left 09/24/2017 07/20/2020 Hypertension Essential [...] mg Assessment & Plan (05/17/2022 4:49 PM SURGICAL COORDINATOR): Blood pressure in clinic is well controled today. Continue current management. Carpal Tunnel Syndrome Left 06/18/2017 05/17/2022 Overview (05/17/2022): S/p release in 2017 Limitation Of Motion Hand Joint Left 08/27/2019 Pain Wrist Left 08/27/2019 Encounters Date Type Department Care Team Description 02/15/2025 2:09 PM CDT Emergency [facility] [address] [place] [address] 02/15/2025 Clinical Communication Division of Plastic Surgery in [place], [place] [address] [place] [phone] Alexys Mensah M.B.B.S. 02/15/2025 Nurse Triage Department of Family [facility], [facility], in [place], [place] [address] [place] [address] Genie Romero R.N. Dizziness 02/11/2025 10:00 AM CDT Clinical Support Department of Physical Medicine and Rehabilitation in [place], [place] [address] [place] [address] Alexys Mensah M.B.B.S. Cher Kemp C.H.T., O.T. Fracture Middle Finger Proximal Phalanx Displaced Sequela Left 02/11/2025 Documentation Department of Orthopedic Surgery in [place], [place] [address] [place] [address] Saba Rogers, P.A.-C. 02/11/2025 Orders Only Department of Orthopedic Surgery in [place], [place] [address] [place] [address] Saba Rogers, P.A.-C. 02/09/2025 4:00 PM CDT Comprehensive Visit Department of Physical Medicine and Rehabilitation in [address] [address] Ashli Kincaid APRN, C.N.P., M.S.N. Julián Luz, M.A., O.T. Fracture Middle Finger Proximal Phalanx Displaced Sequela Left; Fracture Hand Multiple Closed Initial Left; Pain Wrist Right; Fracture Wrist Closed Initial Right; Limitation Of Motion Finger Left; Return To Work Status Examination 02/09/2025 3:00 PM CDT Clinical Support Department of Physical Medicine and Rehabilitation in [address] [address] Ashli Kincaid APRN, C.N.P., M.Imtiaz Lugo M.S., P.T., D.P.T. Fracture Middle Finger Proximal Phalanx Displaced Sequela Left; Fracture Hand Multiple Closed Initial Left; Fracture Wrist And Hand Other Open Initial Left; Fracture Index Finger Proximal Phalanx Displaced Sequela Left; Pain Wrist Right; Fracture Wrist Closed Initial Right; Limitation Of Motion Finger Left; Return To Work Status Examination 02/09/2025 1:41 PM CDT - 02/09/2025 11:59 PM CDT Hospital Encounter Department of Radiology, [facility] in [place], [place] [address] [place] [phone] Saba Rogers P.A.-C. Fracture Index Finger Proximal Phalanx Displaced Sequela Left; Fracture Ring Finger Distal Phalanx Displaced Sequela Left Discharge Disposition: Home or Self Care 02/09/2025 1:00 PM CDT Clinical Support Department of Physical Medicine and Rehabilitation in [place], [place] [address] [place] [phone] Alexys Mensah M.B.B.S. Malecha, Maggie J, C.H.T., O.T. Limitation Of Motion Finger Left (Primary Dx); Fracture Middle Finger Proximal Phalanx Displaced Sequela Left 02/09/2025 11:35 AM CDT Ancillary Procedure Department of Physical Medicine and Rehab 02/09/2025 Orders Only Department of Orthopedic Surgery in [place], [place] [address] [place] [phone] Saba Rogers P.A.-C. Fracture Index Finger Proximal Phalanx Displaced Sequela Left (Primary Dx); Fracture Ring Finger Distal Phalanx Displaced Sequela Left 02/04/2025 8:00 AM CDT Clinical Support Department of Physical Medicine and Rehabilitation in [place], [place] [address] [place] [phone] Alexys Mensah M.B.B.S. Malecha, Maggie J C.H.T., O.T. Limitation Of Motion Finger Left (Primary Dx); Fracture Middle Finger Proximal Phalanx Displaced Sequela Left 02/03/2025 2:00 PM CDT Clinical Support Department of Physical Medicine and Rehabilitation in [address] [address] Ashli Kincaid APRN, C.N.P., Hermes.Mala.Sahil. Imtiaz Barker, M.S., P.T., D.P.T. Fracture Middle Finger Proximal Phalanx Displaced Sequela Left; Fracture Hand Multiple Closed Initial Left; Fracture Wrist And Hand Other Open Initial Left; Fracture Index Finger Proximal Phalanx Displaced Sequela Left; Pain Wrist Right; Fracture Wrist Closed Initial Right; Limitation Of Motion Finger Left; Return To Work Status Examination 01/30/2025 Refill Department of Family Medicine, [facility], in [place], [place] [address] [address] Silvia Robison M.D. Med Refill 01/29/2025 2:00 PM CDT Comprehensive Visit Department of Physical Medicine and Rehabilitation in [address] [address] Ashli Kincaid APRN, C.N.P., Hermes.S.Imtiaz Fink, M.S., P.T., D.P.T. Fracture Middle Finger Proximal Phalanx Displaced Sequela Left; Fracture Hand Multiple Closed Initial Left; Pain Wrist Right; Fracture Wrist Closed Initial Right; Limitation Of Motion Finger Left; Return To Work Status Examination 01/22/2025 Refill Department of Family Medicine, [facility], in [place], [place] [address] [address] Silvia Robison M.D. Med Refill 01/15/2025 Refill Department of Family Medicine, [facility], in [place], [place] [address] [phone] Silvia Robison M.D. Med Refill 01/12/2025 1:30 PM CDT Comprehensive Visit Section of Preventive, Transportation and Occupational Medicine in [place], [place] [address] [place] [address] FucAshli ellison APRN, C.N.P., M.S.N. Fracture Hand Multiple Closed Initial Left (Primary Dx); Fracture Middle Finger Proximal Phalanx Displaced Sequela Left; Limitation Of Motion Finger Left; Fracture Wrist Closed Initial Right; Pain Wrist Right; Return To Work Status Examination; Injury Shoulder Subsequent Right; Injury Knee Subsequent Right; Injury Ankle Subsequent Right 01/12/2025 11:45 AM CDT Comprehensive Visit Department of Physical Medicine and Rehabilitation in [address] [phone] Saba Rogers P.A.Arnulfo. La Quinn MSammS., O.T. Fracture Middle Finger Proximal Phalanx Displaced Sequela Left (Primary Dx) 01/12/2025 11:00 AM CDT Office Visit Department of Orthopedic Surgery in [address] [phone] Alexys Mensah M.B.B.S. Fracture Middle Finger Proximal Phalanx Displaced Sequela Left (Primary Dx); Fracture Wrist And Hand Other Open Initial Left; Fracture Index Finger Proximal Phalanx Displaced Sequela Left 01/12/2025 9:51 AM CDT - 01/12/2025 11:59 PM CDT Hospital Encounter Department of Radiology, [facility], in [place], [place] [address] [place] [phone] Saba Rogers P.A.-C. Fracture Hand Multiple Closed Initial Left Discharge Disposition: Home or Self Care 01/09/2025 Refill Department of Family Medicine, [facility], in [place], [place] [address] [phone] Silvia Robison M.D. Med Refill 01/08/2025 Orders Only Department of Orthopedic Surgery in [address] [phone] Saba Rogers P.A.EmilC. 01/07/2025 10:00 AM CDT Clinical Communication Virtual Review in [place], [place] [address] [place] [address] 01/07/2025 Clinical Communication Division of Plastic Surgery in [place], [place] [address] [place] [address] Ailin Rowan M.D. 01/07/2025 Clinical Communication Department of Family Medicine, [facility], in [place], [place] [address] [place] [address] Silvia Robison M.D. 12/27/2024 12:30 AM CDT Telemedicine [facility] at [address] [address] Padmini Barrera M.D. Acute Recurrent Ethmoidal Sinusitis (Primary Dx) 12/24/2024 Documentation Department of Orthopedic Surgery in [place], [place] [address] [place] [phone] Saba Rogers P.A.EmilC. 12/23/2024 Orders Only Department of Orthopedic Surgery in [place], [place] [address] [place] [phone] Chikis Ware, SUYAPA, C.N.P. Fracture Hand Multiple Closed Initial Left (Primary Dx) 12/08/2024 12:00 PM CDT Comprehensive Visit Department of Physical Medicine and Rehabilitation in [place], [place] [address] [place] [phone] Saba Rogers P.A.-C. Deana Ray, C.H.T., O.T. Limitation Of Motion Finger Left (Primary Dx); Fracture Hand Multiple Closed Initial Left 12/08/2024 11:09 AM CDT - 12/08/2024 11:59 PM CDT Hospital Encounter Department of Radiology, [facility], [place], [place] [address] [place] [phone] Saba Rogers P.Kenneth.-C. Fracture Hand Multiple Closed Initial Left; Fracture Wrist Closed Initial Right Discharge Disposition: Home or Self Care 12/08/2024 11:09 AM CDT - 12/08/2024 11:59 PM CDT Hospital Encounter Department of Radiology, [facility], in [place], [place] [address] [place] [address] Saba Rogers P.A.-C. Fracture Hand Multiple Closed Initial Left; Fracture Wrist Closed Initial Right Discharge Disposition: Home or Self Care 12/08/2024 10:27 AM CDT - 12/08/2024 11:08 AM CDT Hospital Encounter Department of Orthopedic Surgery in [place], [place] [address] [place] [phone] Linda Arboleda, Jeovanny. Saba Rogers P.A.-C. Fracture Hand Multiple Closed Initial Left Discharge Disposition: Home or Self Care 12/08/2024 Orders Only Department of Orthopedic Surgery in [place], [place] [address] [place] [phone] Emily Olivarez M.D. Fracture Hand Multiple Closed Initial Left (Primary Dx) 12/08/2024 Orders Only Department of Orthopedic Surgery in [place], [place] [address] [place] [phone] Saba Rogers P.A.-C. Fracture Hand Multiple Closed Initial Left (Primary Dx); Fracture Wrist Closed Initial Right 12/03/2024 Documentation Department of Orthopedic Surgery in [place], [place] [address] [place] [phone] Saba Rogers P.A.-C. 12/03/2024 Refill Department of Family Medicine, [facility], in [place], [place] [address] [phone] Silvia Robison M.D. Med Refill 12/01/2024 Clinical Communication Division of Plastic Surgery in [place], [place] [address] [place] [phone] Renee Lassiter M.D. 11/30/2024 Orders Only Department of Orthopedic Surgery in [place], [place] [address] [place] [phone] Saba Rogers P.A.-C. 11/27/2024 Orders Only Department of Orthopedic Surgery in [place], [place] [address] [place] [phone] Saba Rogers P.A.-C. 11/25/2024 Orders Only Department of Orthopedic Surgery in [place], [place] [address] [place] [phone] Linda Arboleda P.A.-C. Fracture Hand Multiple Closed Initial Left (Primary Dx) 11/24/2024 11:56 AM CDT - 11/24/2024 11:59 PM CDT Hospital Encounter Department of Radiology, [facility], in [place], [place] [address] [place] [phone] Linda Arboleda P.A.-C. Pain Wrist Right Discharge Disposition: Home or Self Care 11/24/2024 10:41 AM CDT - 11/24/2024 11:55 AM CDT Hospital Encounter Department of Orthopedic Surgery in [place], [place] [address] [place] [phone] Linda Arboleda P.A.-Alexys Moy M.B.B.S. Pain Wrist Right (Primary Dx); Fracture Hand Multiple Closed Initial Left Discharge Disposition: Home or Self Care 11/24/2024 10:40 AM CDT Hospital Encounter Department of Radiology, [facility], in [place], [place] [address] [place] [phone] Linda Arboleda P.A.-CSamm Fracture Hand Multiple Closed Initial Left Discharge Disposition: Home or Self Care 11/24/2024 Orders Only [facility] Silvia Robison M.D. 11/16/2024 Orders Only Department of Orthopedic Surgery in [place], [place] [address] [place] [phone] Saba Rogers P.A.-C. from Last 3 Months Immunizations Immunization Administration [...] History Relation Name Comments Sleep apnea Father Paula Carter SR. Alcohol abuse Maternal Grandfather Tashi Proctor Coronary artery disease Maternal Grandfather Tashi Raquel cid Hypertension Maternal Grandfather Tashi Proctor Stroke Maternal Grandfather Tashi Proctor Breast cancer (in one breast) Mother Sienna Smith nan Unexplained Mother Sienna Vuong Diabetes Other 1 Grandmother Stroke Other 1 Grandmother Diabetes Other 2 Grandmother Stroke Other 2 Grandmother Stroke Other 3 Grandfather Asthma Paternal Grandmother Joanna Carter Diabetes Paternal Grandmother Joanna Carter Relation Name Status Comments Father Paula Carter SR. Alive Maternal Grandfather Tashi Proctor [...] things needed for daily living? No 12/24/2024 [facility] Utilities Answer Date Recorded In the past 12 months has [employer] electric, gas, oil, or water company threatened [...] CDT Gender Identity Male 05/21/2020 12:19 PM SURGICAL COORDINATOR Sexual Orientation Straight 07/10/2017 5: 27 [...] Department of Physical Medicine and Rehabilitation in [place], [place] [address] [place] [phone] Alexys Mensah M.B.B.S. [address] [place] [phone] Cher Kemp, C.H.T., O.T. [address] [place] [phone] 02/16/2025 3:00 PM CDT Clinical Support Department of Physical Medicine and Rehabilitation in [place], [place] [address] [place] [address] Ashli Kincaid APRN, C.N.P., M.S.N. [address] [place] [phone] Imtiaz Barker M.S., P.T., D.P.T. [address] [place] [phone] 02/18/2025 9:00 AM CDT Clinical Support Department of Physical Medicine and Rehabilitation in [place], [place] [address] [place] [phone] Alexys Mensah M.B.B.S. [address] [place] [phone] Cher Kemp C.HLavonne., O.T. [address] [place] [phone] 02/22/2025 11:00 AM SURGICAL COORDINATOR Clinical Support Department of Physical Medicine and Rehabilitation in [address] [address] Ashli Kincaid APRN, Yelitza.NHeather, M.S.N. [address] [place] [phone] Imtiaz Barker M.S., P.T., D.P.T. [address] [place] [phone] 03/02/2025 3:00 PM SURGICAL COORDINATOR Clinical Support Department of Physical Medicine and Rehabilitation in [address] [address] Ashli Kincaid APRN, C.NHeather, M.S.N. [address] [place] [phone] Imtiaz Barker M.S., P.T., D.P.T. [address] [place] [phone] 03/15/2025 10:00 AM SURGICAL COORDINATOR Appointment Department of Radiology, [facility], in [place], [place] [address] [place] [phone] Renee Lassiter M.D. [address] [place] [phone] Discharge Disposition: Home or Self Care 03/15/2025 10:30 AM SURGICAL COORDINATOR Office Visit Department of Orthopedic Surgery in [place], [place] [address] [place] [phone] Alexys Mensah M.B.B.S. [address] [place] [phone] 03/15/2025 11:00 AM SURGICAL COORDINATOR Clinical Support Department of Physical Medicine and Rehabilitation in [place], [place] [address] [place] [phone] Alexys Mensah M.B.B.S. [address] [place] [phone] Cecilia Ashford PFletcher, C.H.T. [address] [place] [phone] 03/15/2025 1:00 PM SURGICAL COORDINATOR Office Visit Section of Preventive, Transportation and Occupational Medicine in [place], [place] [address] [place] [phone] Ashli Kincaid APRN, C.N.P., M.S.N. [address] [place] [phone] Health Maintenance Due Date Last Done Comments CT Colonography 1972 Cologuard 1972 Colonoscopy 1972 Colorectal Cancer Screening 1972 FIT 1972 Hepatitis C Screening 1972 Lung Cancer Screening 1972 Diabetic Office Visit with Foot Exam 05/17/2023 05/17/2022, 04/18/2020 Diabetic Eye Exam 07/08/2024 07/09/2023, , 07/19/2020 (Performed elsewhere) Zoster Vaccines (2 of 2) 08/10/2024 06/15/2024 COVID-19 Vaccine ( season) 2024 05/01/2021, 03/03/2021 Influenza Vaccine [...] this topic Medical Devices Implanted Type Area Pheresis Nurse Device Identifier Shelf Expiration Date Model / Serial / Lot Chips Cancellous 5cc - [id number] Implanted:Qty: 1 on 06/07/2017 Bone or Tissue Other/Legacy - See Implant Description [employer] Description:Device Manufactu rer - [employer]. Body Location - Other. bone for packing defect. Device Status Text [id number]. Peg Smooth 2.0mm X 18mm Long - Luke [id number] Implanted:Qty: 3 on 06/07/2017 Hardware e.g. 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 Device Status Text - [id number]. Peg Smooth 2.0mm X 20mm Long - Luke [id number] Implanted:Qty: 2 on 06/07/2017 Hardware e.g. 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 Device Status Text - HARDWARE-53461. Screw-Cortical 3.5mm X 14mm Long - Luke [id number] Implanted:Qty: 3 on 06/07/2017 Hardware e.g. 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 Device Status Text - HARDWARE-21491. Plate-Distal Volar Lt Short - Luke [id number] Implanted:Qty: 1 on 06/07/2017 Hardware e.g. 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 Device Status Text - [id number]. Screw-Cortical 3.5mm X 15mm Long - Luke [id number] Implanted:Qty: 2 on 06/07/2017 Hardware e.g. 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 Device Status Text - [id number]. Peg Threaded 2.5mm X 20mm Long - Luke [id number] Implanted:Qty: 1 on 06/07/2017 Hardware e.g. 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 Device Status Text - HARDWARE-35249. Peg Smooth 2.0mm X 22mm Long - Luke [id number] Implanted:Qty: 1 on 06/07/2017 Hardware e.g. 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 Device Status Text - [id number]. Kwire Fix Troc Pt 0.045x4 - [id number] Implanted:Qty: 1 on 11/10/2024 by Alexys Mensah M.B.B.S. at [facility] Hardware e.g. pins/screw s/rods Alberto [id number] / / Explanted Type Area Pheresis Nurse Device Identifier Shelf Expiration Date Model / Serial / Lot Stnt Uret Inl 7fx26 - [id number] Implanted:Qty : 1 on 07/15/2019 by Terry Girard M.D. at [facility] Ureteral Stent Yelitza.Stacy.Irving [id number] 05/01/2023 [id number] / / [id number] Procedures Procedure Name Priority Date/Time Associated Diagnosis Comments DX FINGERS LEFT 2+ VIEWS RAD - Routine (most inpatients and all outpatients) 02/09/2025 1:59 PM CDT Fracture Index Finger Proximal Phalanx Displaced Sequela Left Fracture Ring Finger Distal Phalanx Displaced Sequela Left PHYSICAL MEDICINE AND REHAB IMAGE EXAM Routine 02/09/2025 11:35 AM CDT DX HAND LEFT 3+ VIEWS RAD - [...] CDT Fracture Hand Multiple Closed Initial Left BASIC METABOLIC PANEL, S/P STAT 11/09/2024 9:34 PM CDT HEMOGLOBIN A1C, B Routine 09/12/2024 2:2 1 PM CDT Diabetes Mellitus Type 2 Without Complication (HCC) ALBUMIN, RANDOM, U Routine 06/15/2024 8:40 AM SURGICAL COORDINATOR Diabetes Mellitus Type 2 Hyperglycemia (HCC) LIPID PANEL, S Routine 12/19/2023 2:41 PM CDT Dysfunction Erectile from Last 3 Months or Most Recently Relevant to Health Maintenance Results * DX Fingers Left 2+ Views [...] included ontoday's images. Demineralization. Soft tissue swelling. us Saba Rogers P.A.-C. IMG DIAGNOSTIC IMAGING PROCEDURES Final Result * Hand, Left-Physical Medicine And Rehab Image [...] NON RAD IMAGING PROCE DURES Final Result IILA NA * DX Hand Left 3+ Views (01/12/2025 [...] radius.No hardware failure. Demineralization. Saba Rogers P.A.-C. [facility] DIAGNOSTIC IMAGING PROCEDURES Final Result * DX [...] priorstudy. Advanced radiocarpal and intercarpal joint degeneration. [id number] CMC and STT joint degeneration. Small heterotopic ossification alongthe dorsal aspect of the distal radius likely represents sequela of dorsal capsular avulsion, unchanged. Saba Rogers P.A.-C. [facility] DIAGNOSTIC IMAGING PROCEDURES Final Result * DX [...] on the tip of the ulnar styloid. Linda Arboleda P.A.-C. IMG DIAGNOSTIC IMAGING PROCEDURES Final Result * (ABNORMAL) Basic Metabolic Panel (11/09/2024 9:34 PM CDT) Potassium, P 4.4 3.6 - 5.2 mmol/L [...] - 140 mg/dL 11/09/2024 10:03 PM CDT [facility] Blood (Blood, Venous) 11/09/2024 9:34 PM CDT 11/09/2024 9:42 PM CDT us Regino Orellana P.A.-C. LAB BLOOD ADD-ON Final Res ult Performing Organization Address [facility]/ZIP Co de Phone Number [facility] [address] [place] [address], [facility] [address] [place] [address] * (ABNORMAL) Hemoglobin A1c (09/12/2024 2:21 PM CDT) [facility] Hemoglobin A1c, B 6.9(H) 4.2 - 5.6 [...] C.N.P. LAB BLOOD ADD-ON Fin al Result Performing Organization Address City/[facility]/ZIP Co de Phone Number [facility] [address] [place] [address], [place] OWAT [facility] [place] [address] [place] [address] * Albumin, Random, Urine (06/15/2024 8:40 AM SURGICAL COORDINATOR) Microalbumin 20.0 mg/L 06/15/2024 9:31 AM SURGICAL COORDINATOR OWAT Creatinine 141 mg/dL 06/15/2024 9:31 AM SURGICAL COORDINATOR OWAT Albumin/Creatinin e Ratio 14 <17 mg/g 06/15/2024 9:31 AM SURGICAL COORDINATOR OWAT Urine (Urine, Midstream) 06/15/2024 8:40 AM SURGICAL COORDINATOR 06/15/2024 8:50 AM SURGICAL COORDINATOR us Ruchi Sharma M.D. LAB URINE ORDERABLES Fin al Result [facility] [address], [place] [address], [facility] OWAT [facility] [place] [address] [place] [phone] * (ABNORMAL) Lipid Panel (12/19/2023 2:41 PM [...] Robison M.D. LAB BLOOD ADD-ON Final Result Performing Organization Address City/State/[facility] Co de Phone Number [facility] [address] [place] [address], [facility] OWAT [facility] [place] [address] [place] [address] from Last 3 Months or Most Recently Relevant to Health Maintenance Insurance [facility] MISTY IBRAHIM [address] [place] [id number] [place] [phone] Advance Directives For more information, please contact: [phone] * Full Code (Latest Code Status on File) Date Activated Date Inactivated Comments 07/15/2019 10:35 AM 07/16/2019 1:23 PM Question Answer Comments Full Code: Discussed Care Teams Pumper Gager Apprentice Relationship Specialty Start Date End Date Silvia Robison M.D. [address] [place] [phone] PCP - General Family Medicine 10/03/23
--- OUTSIDE RECORDS SUMMARY | 2025-02-15 14:22 | XMS_ITS | Encounter Summary ---
Author Organization [facility] Address [address] [place] [address] Care Team Providers Care Lunch Truck Operator Name Role Phone Silvia Robison M.D. Primary Care Provider Reason for Referral * Outpatient (Routine) - Closed Specialty Diagnoses / Procedures Referred By Franky zeng Referred To Contact Diagnoses Fracture Index Finger Proximal Phalanx Displaced Sequela Left Fracture Ring Finger Distal Phalanx Displaced Sequela Left Procedures DX Fingers Left 2+ Views Saba Rogers P.A.-C. [address] [place] [phone] Phone: tel: fax: [facility] Referral ID Status Reason Start Date Expiration Date Visits Re quested Visits Authorized [id number] Closed 02/09/2025 05/12/2026 1 1 Encounter Details Date Type Department Care Team (Late st Contact Info) Description 02/09/2025 Orders Only Department of Orthopedic Surgery in [place], [place] [address] [place] [phone] Saba Rogers P.A.-C. [address] [place] [phone] Fracture Index Finger Proximal Phalanx Displaced Sequela Left (Primary Dx); Fracture Ring Finger Distal Phalanx Displaced Sequela Left Social History Tobacco [...] things needed for daily living? No 12/24/2024 [facility] Utilities Answer Date Recorded In the past 12 months has [facility] [employer], gas, oil, or water [employer] threatened to shut off services in your [...] CDT Gender Identity Male 05/21/2020 12:19 PM WIRE COATING OPERATOR METAL Sexual Orientation Straight 07/10/2017 5: 27 PM CDT documented as of this encounter Plan of Treatment Upcoming Encounters Date Type Department Care Team (Latest Contact Info) Description 02/16/2025 1:00 PM CDT Clinical Support Department of Physical Medicine and Rehabilitation in [place], [place] [address] [place] [phone] Alexys Mensah M.B.B.S. [address] [place] [phone] Cher Kemp, C.H.T., O.T. [address] [place] [phone] 02/16/2025 3:00 PM CDT Clinical Support Department of Physical Medicine and Rehabilitation in [address] [address] Ashli Kincaid APRN, C.N.P., M.S.N. [address] [place] [phone] Imtiaz Barker M.S., P.T., D.P.T. [address] [place] [phone] 02/18/2025 9:00 AM CDT Clinical Support Department of Physical Medicine and Rehabilitation in [place], [place] [address] [place] [phone] Alexys Mensah M.B.B.S. [address] [place] [phone] Cher Kemp C.HLavonne., O.T. [address] [place] [phone] 02/22/2025 11:00 AM WIRE COATING OPERATOR METAL Clinical Support Department of Physical Medicine and Rehabilitation in [address] [address] Ashli Kincaid APRN, Yelitza.NHeather, M.S.N. [address] [place] [phone] Imtiaz Barker M.S., P.T., D.P.T. [address] [place] [phone] 03/02/2025 3:00 PM WIRE COATING OPERATOR METAL Clinical Support Department of Physical Medicine and Rehabilitation in [address] [address] Ashli Kincaid APRN, Yelitza.NHeather, M.S.N. [address] [place] [phone] Imtiaz Barker M.S., P.T., D.P.T. [address] [place] [phone] 03/15/2025 10:00 AM WIRE COATING OPERATOR METAL Appointment Department of Radiology, [facility], in [place], [place] [address] [place] [phone] Renee Lassiter M.D. [address] [place] [phone] Discharge Disposition: Home or Self Care 03/15/2025 10:30 AM WIRE COATING OPERATOR METAL Office Visit Department of Orthopedic Surgery in [place], [place] [address] [place] [phone] Alexys Mensah M.B.B.S. [address] [place] [phone] 03/15/2025 11:00 AM WIRE COATING OPERATOR METAL Clinical Support Department of Physical Medicine and Rehabilitation in [place], [place] [address] [place] [phone] Alexys Mensah M.B.B.S. [address] [place] [phone] Cecilia Ashford P.T., C.H.T. [address] [place] [phone] 03/15/2025 1:00 PM WIRE COATING OPERATOR METAL Office Visit Section of Preventive, Transportation and Occupational Medicine in [place], [place] [address] [place] [phone] Ashli Kincaid APRN, C.N.P., M.S.N. [address] [place] [phone] documented as of this encounter Results * DX Fingers Left [...] Demineralization. Soft tissue swelling. Saba Rogers P.A.-C. IMG DIAGNOSTIC IMAGING PROCEDURES Final Result documented in this encounter Visit Diagnoses Diagnosis Fracture Index Finger Proximal Phalanx Displaced Sequela Left- Primary Fracture Ring Finger Distal Phalanx Displaced Sequela Left Fracture Index Finger Proximal Phalanx Displaced Sequela Left Fracture Ring Finger Distal Phalanx Displaced Sequela Left documented in this encounter Additional Health Concerns Assessment Noted Time PHQ-9 Depression Total Score: 11 025 6:47 AM CDT documented as of this encounter Care Teams Lunch Truck Operator Relationship Specialty Start Date End Date Silvia Robison M.D. [address] [place] [phone] PCP - General Family Medicine 10/03/23 documented as of this encounter
--- OUTSIDE RECORDS SUMMARY | 2025-02-15 14:22 | XMS_ITS | Encounter Summary ---
Author Organization [facility] Address [address] [place] [address] Care Team Providers Care Linux Devops Engineer Name Role Phone Silvia Robison M.D. Primary Care Provider Encounter Details Date Type Department Care Team (Late st Contact Info) Description 02/11/2025 Orders Only Department of Orthopedic Surgery in [place], [place] [address] [place] [phone] Saba Rogers P.A.-C. [address] [place] [phone] Social History Tobacco Use Types Packs/Day Years [...] things needed for daily living? No 12/24/2024 [facility] Utilities Answer Date Recorded In the past 12 months has [employer], gas, oil, or water [employer] threatened to shut off services in your [...] CDT Gender Identity Male 05/21/2020 12:19 PM CUSTODIAL MANAGER Sexual Orientation Straight 07/10/2017 5: 27 PM CDT documented as of this encounter Plan of Treatment Upcoming Encounters Date Type Department Care Team (Latest Contact Info) Description 02/16/2025 1:00 PM CDT Clinical Support Department of Physical Medicine and Rehabilitation in [place], [place] [address] [place] [phone] Alexys Mensah M.B.B.S. [address] [place] [phone] Cher Kemp C.HLavonne., O.T. [address] [place] [phone] 02/16/2025 3:00 PM CDT Clinical Support Department of Physical Medicine and Rehabilitation in [place], [place] [address] [place] [phone] Ashli Kincaid APRN, C.N.P., M.S.N. [address] [place] [phone] Imtiaz Barker, M.S., P.T., D.P.T. [address] [place] [phone] 02/18/2025 9:00 AM CDT Clinical Support Department of Physical Medicine and Rehabilitation in [place], [place] [address] [place] [phone] Alexys Mensah M.B.B.S. [address] [place] [phone] Cher Kemp C.HLavonne., O.T. [address] [place] [phone] 02/22/2025 11:00 AM CUSTODIAL MANAGER Clinical Support Department of Physical Medicine and Rehabilitation in [place], [place] [address] [place] [address] Ashli Kincaid APRN, C.N.P., M.S.N. [address] [place] [phone] BarkerImtiaz holguin M.S., P.T., D.P.T. [address] [place] [phone] 03/02/2025 3:00 PM CUSTODIAL MANAGER Clinical Support Department of Physical Medicine and Rehabilitation in [place], [place] 4[address] [facility] [place], [place] [phone] Ashli Kincaid APRN, C.NSammP., M.S.N. [address] [place] [phone] Imtiaz Barker M.S., P.T., D.P.T. [address] [place] [phone] 03/15/2025 10:00 AM CUSTODIAL MANAGER Appointment Department of Radiology, [facility], in [place], [place] [address] [place] [phone] Renee Lassiter M.D. [address] [place] [phone] Discharge Disposition: Home or Self Care 03/15/2025 10:30 AM CUSTODIAL MANAGER Office Visit Department of Orthopedic Surgery in [place], [place] [address] [place] [phone] Alexys Mensah M.B.B.S. [address] [place] [phone] 03/15/2025 11:00 AM CUSTODIAL MANAGER Clinical Support Department of Physical Medicine and Rehabilitation in [place], [place] [address] [place] [phone] Alexys Mensah M.B.B.S. [address] [place] [phone] Cecilia Ashford P.T., C.H.T. [address] [place] [phone] 03/15/2025 1:00 PM CUSTODIAL MANAGER Office Visit Section of Preventive, Transportation and Occupational Medicine in [place], [place] [address] [place] [phone] Ashli Kincaid APRN, C.N.P., M.S.N. [address] [place] [phone] documented as of this encounter Visit Diagnoses Not on filedocumented in this encounter Additional Health Concerns Assessment Noted Time PHQ-9 Depression Total Score: 11 10/23/ 025 6:47 AM CDT documented as of this encounter Care Teams Linux Devops Engineer Relationship Specialty Start Date End Date Silvia Robison M.D. [address] [place] [phone] PCP - General Family Medicine 10/03/23 documented as of this encounter
--- OUTSIDE RECORDS SUMMARY | 2025-02-15 14:22 | XMS_ITS | Encounter Summary ---
Author Organization [facility] Address [address] [place] [address] Care Team Providers Care Lubrication Supervisor Name Role Phone Silvia Robison M.D. Primary Care Provider Encounter Details Date Type Department Care Team (Late st Contact Info) Description 02/15/2025 Clinical Communication Division of Plastic Surgery in [place], [place] [address] [place] [phone] Alexys Mensah M.B.B.S. [address] [place] [address] Social History Tobacco Use Types Packs/Day Years [...] things needed for daily living? No 12/24/2024 [facility] Utilities Answer Date Recorded In the past 12 months has e [employer], gas, oil, or water [employer] threatened to shut off services in your [...] CDT Gender Identity Male 05/21/2020 12:19 PM REAL ESTATE UNDERWRITER Sexual Orientation Straight 07/10/2017 5: 27 PM CDT documented as of this encounter Plan of Treatment Upcoming Encounters Date Type Department Care Team (Latest Contact Info) Description 02/16/2025 1:00 PM CDT Clinical Support Department of Physical Medicine and Rehabilitation in [place], [place] [address] [place] [address] Alexys Mensah M.B.B.S. [address] [place] [phone] Cher Kemp C.H.T., O.T. [address] [place] [phone] 02/16/2025 3:00 PM CDT Clinical Support Department of Physical Medicine and Rehabilitation in [place], [place] [address] [place] [phone] Ashli Kincaid APRN, C.N.P., M.S.N. [address] [place] [phone] Imtiaz Barker MJohnny., P.T., D.P.T. [address] [place] [phone] 02/18/2025 9:00 AM CDT Clinical Support Department of Physical Medicine and Rehabilitation in [place], [place] [address] [place] [phone] Alexys Mensah M.B.B.S. [address] [place] [phone] Cher Kepm C.HLavonne., O.T. [address] [place] [phone] 02/22/2025 11:00 AM REAL ESTATE UNDERWRITER Clinical Support Department of Physical Medicine and Rehabilitation in [place], [place] [address] [place] [phone] Ashli Kincaid APRN, C.N.P., M.S.N. [address] [place] [phone] Imtiaz Barker M.S., P.T., D.P.T. [address] [place] [phone] 03/02/2025 3:00 PM REAL ESTATE UNDERWRITER Clinical Support Department of Physical Medicine and Rehabilitation in [place], [place] [address] [facility] [place], [place] [phone] Ashli Kincaid APRN, MikelNMago., M.S.N. [address] [place] [phone] Imtiaz Barker M.S., P.T., D.P.T. [address] [place] [phone] 03/15/2025 10:00 AM REAL ESTATE UNDERWRITER Appointment Department of Radiology, [facility], in [place], [place] [address] [place] [phone] Renee Lassiter M.D. [address] [place] [phone] Discharge Disposition: Home or Self Care 03/15/2025 10:30 AM REAL ESTATE UNDERWRITER Office Visit Department of Orthopedic Surgery in [place], [place] [address] [place] [phone] Alexys Mensah M.B.B.S. [address] [place] [phone] 03/15/2025 11:00 AM REAL ESTATE UNDERWRITER Clinical Support Department of Physical Medicine and Rehabilitation in [place], [place] [address] [place] [phone] Alexys Mensah M.B.B.S. [address] [place] [phone] Cecilia Ashford P.T., C.H.T. [address] [place] [phone] 03/15/2025 1:00 PM REAL ESTATE UNDERWRITER Office Visit Section of Preventive, Transportation and Occupational Medicine in [place], [place] [address] [place] [address] Ashli Kincaid APRN, C.N.P., M.S.N. [address] [place] [phone] documented as of this encounter Visit Diagnoses Not on filedocumented in this encounter Additional Health Concerns Assessment Noted Time PHQ-9 Depression Total Score: 11 025 6:47 AM CDT documented as of this encounter Care Teams Lubrication Supervisor Relationship Specialty Start Date End Date Silvia Robison M.D. [address] [place] [phone] PCP - General Family Medicine 10/03/23 documented as of this encounter
--- OUTSIDE RECORDS SUMMARY | 2025-02-15 14:22 | XMS_ITS | Encounter Summary ---
Author Organization [facility] Address [address] [place] [address] Care Team Providers Care Filing Machine Operator Name Role Phone Silvia Robison M.D. Primary Care Provider Reason for Visit * Reason Comments Med Refill Encounter Details Date Type Department Care Team (Late st Contact Info) Description 01/15/2025 Refill Department of Family Medicine, [facility], in [place], [place] [address] [place] [phone] Silvia Robison M.D. [address] [place] [phone] Med Refill Social History Tobacco Use [...] has e electric, gas, oil, or water [employer] threatened to shut off services in your [...] CDT Gender Identity Male 05/21/2020 12:19 PM TERRAZZO FINISHER Sexual Orientation Straight 07/10/2017 5: 27 PM CDT documented as of this encounter Plan of Treatment Upcoming Encounters Date Type Department Care Team (Latest Contact Info) Description 02/16/2025 1:00 PM CDT Clinical Support Department of Physical Medicine and Rehabilitation in [place], [place] [address] [place] [phone] Alexys Mensah M.B.B.S. [address] [place] [phone] Cher Kemp C.H.T., O.T. [address] [place] [phone] 02/16/2025 3:00 PM CDT Clinical Support Department of Physical Medicine and Rehabilitation in [place], [place] [address] [place] [phone] Ashli Kincaid APRN, C.NHeather, M.S.N. [address] [place] [phone] Imtiaz Barker M.S., P.T., D.P.T. [address] [place] [phone] 02/18/2025 9:00 AM CDT Clinical Support Department of Physical Medicine and Rehabilitation in [place], [place] [address] [place] [phone] Alexys Mensah M.B.B.S. [address] [place] [phone] Cher Kemp C.H.Thad., O.T. [address] [place] [phone] 02/22/2025 11:00 AM TERRAZZO FINISHER Clinical Support Department of Physical Medicine and Rehabilitation in [place], [place] [address] [place] [phone] Ashli Kincaid APRN, C.NHeather, M.S.N. [address] [place] [phone] Imtiaz Barker M.S., P.T., D.P.T. [address] [place] [phone] 03/02/2025 3:00 PM TERRAZZO FINISHER Clinical Support Department of Physical Medicine and Rehabilitation in [place], [place] [address] [facility] [place] [address] Ashli Kincaid APRN, C.N.P., M.S.N. [address] [place] [phone] Imtiaz Barker M.S., P.T., D.P.T. [address] [place] [phone] 03/15/2025 10:00 AM TERRAZZO FINISHER Appointment Department of Radiology, [facility], in [place], [place] [address] [place] [phone] Renee Lassiter M.D. [address] [place] [phone] Discharge Disposition: Home or Self Care 03/15/2025 10:30 AM TERRAZZO FINISHER Office Visit Department of Orthopedic Surgery in [place], [place] [address] [place] [phone] Alexys Mensah M.B.B.S. [address] [place] [phone] 03/15/2025 11:00 AM TERRAZZO FINISHER Clinical Support Department of Physical Medicine and Rehabilitation in [place], [place] [address] [place] [phone] Alexys Mensah M.B.B.S. [address] [place] [phone] Cecilia Ashford P.T., C.H.T. [address] [place] [phone] 03/15/2025 1:00 PM TERRAZZO FINISHER Office Visit Section of Preventive, Transportation and Occupational Medicine in [place], [place] [address] [place] [phone] Ashli Kincaid APRN, C.N.P., M.S.N. [address] [place] [phone] documented as of this encounter Visit Diagnoses Not on filedocumented in this encounter Additional Health Concerns Assessment Noted Time PHQ-9 Depression Total Score: 11 10/23/ 025 6:47 AM CDT documented as of this encounter Care Teams Filing Machine Operator Relationship Specialty Start Date End Date Silvia Robison M.D. [address] [place] [phone] PCP - General Family Medicine 10/03/23 documented as of this encounter
--- OUTSIDE RECORDS SUMMARY | 2025-02-15 14:22 | XMS_ITS | Encounter Summary ---
Author Organization [facility] Address [address] [place] [address] Care Team Providers Care Filling Machine Tender Name Role Phone Silvia Robison M.D. Primary Care Provider Reason for Visit * Reason Comments Med Refill Encounter Details Date Type Department Care Team (Late st Contact Info) Description 01/09/2025 Refill Department of Family Medicine, [facility] [place], in [place], [place] [address] [place] [phone] Silvia Robison M.D. [address] [place] [phone] Med Refill Social History Tobacco Use [...] things needed for daily living? No 12/24/2024 [facility] Utilities Answer Date Recorded In the past 12 months has e electric, gas, oil, or water [employer] threatened to shut off services in your [...] CDT Gender Identity Male 05/21/2020 12:19 PM PROCESS ARCHITECT Sexual Orientation Straight 07/10/2017 5: 27 PM CDT documented as of this encounter Plan of Treatment Upcoming Encounters Date Type Department Care Team (Latest Contact Info) Description 02/16/2025 1:00 PM CDT Clinical Support Department of Physical Medicine and Rehabilitation in [place], [place] [address] [place] [phone] Alexys Mensah M.B.B.S. [address] [place] [phone] Cher Kemp C.H.T., O.T. [address] [place] [phone] 02/16/2025 3:00 PM CDT Clinical Support Department of Physical Medicine and Rehabilitation in [place], [place] [address] [place] [phone] Ashli Kincaid APRN, C.NHeather, M.S.N. [address] [place] [phone] Imtiaz Barker M.S., P.T., D.P.T. [address] [place] [phone] 02/18/2025 9:00 AM CDT Clinical Support Department of Physical Medicine and Rehabilitation in [place], [place] [address] [place] [phone] Alexys Mensah M.B.B.S. [address] [place] [phone] Cher Kemp C.H.Thad., O.T. [address] [place] [phone] 02/22/2025 11:00 AM PROCESS ARCHITECT Clinical Support Department of Physical Medicine and Rehabilitation in [place], [place] [address] [place] [phone] Ashli Kincaid APRN, C.NHeather, M.S.N. [address] [place] [phone] Imtiaz Barker M.S., P.T., D.P.T. [address] [place] [phone] 03/02/2025 3:00 PM PROCESS ARCHITECT Clinical Support Department of Physical Medicine and Rehabilitation in [place], [place] [address] [facility] [place] [address] Ashli Kincaid APRN, C.N.P., M.S.N. [address] [place] [phone] Imtiaz Barker M.S., P.T., D.P.T. [address] [place] [phone] 03/15/2025 10:00 AM PROCESS ARCHITECT Appointment Department of Radiology, [facility], in [place], [place] [address] [place] [phone] Renee Lassiter M.D. [address] [place] [phone] Discharge Disposition: Home or Self Care 03/15/2025 10:30 AM PROCESS ARCHITECT Office Visit Department of Orthopedic Surgery in [place], [place] [address] [place] [phone] Alexys Mensah M.B.B.S. [address] [place] [phone] 03/15/2025 11:00 AM PROCESS ARCHITECT Clinical Support Department of Physical Medicine and Rehabilitation in [place], [place] [address] [place] [phone] Alexys Mensah M.B.B.S. [address] [place] [phone] Cecilia Ashford P.T., C.H.T. [address] [place] [address] 03/15/2025 1:00 PM PROCESS ARCHITECT Office Visit Section of Preventive, Transportation and Occupational Medicine in [place], [place] [address] [place] [address] Ashli Kincaid APRN, C.N.P., M.S.N. [address] [place] [phone] documented as of this encounter Visit Diagnoses Not on filedocumented in this encounter Additional Health Concerns Assessment Noted Time PHQ-9 Depression Total Score: 11 10/23/ 025 6:47 AM CDT documented as of this encounter Care Teams Filling Machine Tender Relationship Specialty Start Date End Date Silvia Robison M.D. [address] [place] [phone] PCP - General Family Medicine 10/03/23 documented as of this encounter
--- OUTSIDE RECORDS SUMMARY | 2025-02-15 14:22 | XMS_ITS | Encounter Summary ---
Author Organization [facility] Address [address] [place] [address] Care Team Providers Care Hi Low Truck Driver Name Role Phone Silvia Robison M.D. Primary Care Provider Reason for Visit * Reason Onset Date Comments Dizziness 02/15/2025 Encounter Details Date Type Department Care Team (Late st Contact Info) Description 02/15/2025 Nurse Triage Department of Family Medicine, [facility], in [place], [place] [address] [phone] Genie Romero R.N. [address] [place] [address] Dizziness Social History Tobacco Use Types Packs/Day Years [...] things needed for daily living? No 12/24/2024 [facility] Utilities Answer Date Recorded In the past 12 months has [employer], gas, oil, or water [employer] threatened to shut off services in your home? Patient declined 12/24/2024 Depression Answer Date Recor ded PHQ-9 Total Score (max 27) 11 10/23 Housing Stability Answer Date Recorded What is your living situatio n today? I do not have a steady place to live (I am temporarily staying with others, in a hotel, in a fdc, living outside on the street, on a [...] CDT Gender Identity Male 05/21/2020 12:19 PM CREW MANAGER Sexual Orientation Straight 07/10/2017 5: 27 PM CDT documented as of this encounter Miscellaneous Notes * Telephone Encounter - Genie Romero R.N. - 02/15/2025 12:46 PM CDT Chief Complaint / Reason for Call Patient is a 54 y.o. male calling regarding Dizziness. Assessment Concern: Patient is calling and reports that he is taking Prednisone for swollen hand and fingers and has two days left. Patient reports he is diabetic and blood sugar is high at 350 this morning andfeels light headed, dizzy and weak. Present for: this morning Home cares tried: unsure Calling to request: advice The recommended disposition is Go to ED/UCC Now (or PCP Triage). Reason for Disposition Patient sounds very sick or weak to the triager Protocols used: Diabetes - High Blood Yaoeg-Qoejk-AM Care Advice Patient/Caregiver understands and will follow care advice?: Yes, able to teach back Diabetes - High Blood Pgmpr-Ertyz-US Nurse Genie Martinez Feb 15, 2025 12:58 PM Care Advice GO TO ED/UCC NOW (OR PCP TRIAGE): ANOTHER ADULT SHOULD DRIVE: * It is better and safer if another adult drives instead of you. BRING MEDICINES: * Please bring a list of your current medicines when you go to see the doctor. * It is also a good idea to bring the pill bottles too. This will help the doctor to make certain you are taking the right medicines and the right dose. CARE ADVICE given per Diabetes - High Blood Sugar (Adult) guideline. documented in this encounter Plan of Treatment Upcoming Encounters Date Type Department Care Team (Latest Contact Info) Description 02/16/2025 1:00 PM CDT Clinical Support Department of Physical Medicine and Rehabilitation in [place], [place] [address] [place] [phone] Alexys Mensah M.B.B.S. [address] [place] [phone] Cher Kemp, C.H.T., O.T. [address] [place] [phone] 02/16/2025 3:00 PM CDT Clinical Support Department of Physical Medicine and Rehabilitation in [place], [place] [address] [place] [address] [place] [address] Ashli Kincaid APRN, C.N.P., M.S.N. [address] [place] [phone] Imtiaz Barker M.S., P.T., D.P.T. [address] [place] [phone] 02/18/2025 9:00 AM CDT Clinical Support Department of Physical Medicine and Rehabilitation in [place], [place] [address] [place] [phone] Alexys Mensah M.B.B.S. [address] [place] [phone] Cher Kemp C.H.Thad., O.T. [address] [place] [phone] 02/22/2025 11:00 AM CREW MANAGER Clinical Support Department of Physical Medicine and Rehabilitation in [address] [address] Ashli Kincaid APRN, C.N.P., M.S.N. [address] [place] [phone] Imtiaz Barker M.Mala., P.T., D.P.T. [address] [place] [phone] 03/02/2025 3:00 PM CREW MANAGER Clinical Support Department of Physical Medicine and Rehabilitation in [address] [address] Ashli Kincaid APRN, C.NHeather, M.S.N. [address] [place] [phone] Imtiaz Barker M.S., P.T., D.P.T. [address] [place] [phone] 03/15/2025 10:00 AM CREW MANAGER Appointment Department of Radiology, [facility], in [place], [place] [address] [place] [phone] Renee Lassiter M.D. [address] [place] [phone] Discharge Disposition: Home or Self Care 03/15/2025 10:30 AM CREW MANAGER Office Visit Department of Orthopedic Surgery in [place], [place] [address] [place] [phone] Alexys Mensah M.B.B.S. [address] [place] [phone] 03/15/2025 11:00 AM CREW MANAGER Clinical Support Department of Physical Medicine and Rehabilitation in [place], [place] [address] [place] [phone] Alexys Mensah M.B.B.S. [address] [place] [phone] Cecilia Ashford P.T., C.H.T. [address] [place] [phone] 03/15/2025 1:00 PM CREW MANAGER Office Visit Section of Preventive, Transportation and Occupational Medicine in [place], [place] [address] [place] [phone] Ashli Kincaid APRN, C.N.P., M.S.N. [address] [place] [phone] documented as of this encounter Visit Diagnoses Not on filedocumented in this encounter Additional Health Concerns Assessment Noted Time PHQ-9 Depression Total Score: 11 10/23/ 025 6:47 AM CDT documented as of this encounter Care Teams Hi Low Truck Driver Relationship Specialty Start Date End Date Silvia Robison M.D. [address] [place] [phone] PCP - General Family Medicine 10/03/23 documented as of this encounter
--- OUTSIDE RECORDS SUMMARY | 2025-02-15 14:23 | XMS_ITS | Encounter Summary ---
Author Organization [facility] Address [address] [place] [address] Care Team Providers Care Jewel Stripper Name Role Phone Silvia Robison M.D. Primary Care Provider Reason for Visit * Reason Comments Med Refill Encounter Details Date Type Department Care Team (Late st Contact Info) Description 01/22/2025 Refill Department of Family Medicine, [facility], in [place], [place] [address] [place] [phone] Silvia Robison M.D. [address] [place] [phone] Med Refill Social History Tobacco Use [...] 12/24/2024 [facility] Utilities Answer Date Recorded In the past 12 months has e electric, gas, oil, or water [employer] threatened to shut off services in your [...] CDT Gender Identity Male 05/21/2020 12:19 PM LIFESTYLE DIRECTOR Sexual Orientation Straight 07/10/2017 5: 27 PM CDT documented as of this encounter Plan of Treatment Upcoming Encounters Date Type Department Care Team (Latest Contact Info) Description 02/16/2025 1:00 PM CDT Clinical Support Department of Physical Medicine and Rehabilitation in [place], [place] [address] [place] [phone] Alexys Mensah M.B.B.S. [address] [place] [phone] Cher Kemp C.H.T., O.T. [address] [place] [phone] 02/16/2025 3:00 PM CDT Clinical Support Department of Physical Medicine and Rehabilitation in [place], [place] [address] [place] [phone] Ashli Kincaid APRN, C.NHeather, M.S.N. [address] [place] [phone] Imtiaz Barker M.S., P.T., D.P.T. [address] [place] [phone] 02/18/2025 9:00 AM CDT Clinical Support Department of Physical Medicine and Rehabilitation in [place], [place] [address] [place] [phone] Alexys Mensah M.B.B.S. [address] [place] [phone] Cher Kemp C.H.Thad., O.T. [address] [place] [phone] 02/22/2025 11:00 AM LIFESTYLE DIRECTOR Clinical Support Department of Physical Medicine and Rehabilitation in [place], [place] [address] [place] [phone] Ashli Kincaid APRN, C.NHeather, M.S.N. [address] [place] [phone] Imtiaz Barker M.S., P.T., D.P.T. [address] [place] [phone] 03/02/2025 3:00 PM LIFESTYLE DIRECTOR Clinical Support Department of Physical Medicine and Rehabilitation in [place], [place] [address] [facility] [place] [address] Ashli Kincaid APRN, C.N.P., M.S.N. [address] [place] [phone] Imtiaz Barker M.S., P.T., D.P.T. [address] [place] [phone] 03/15/2025 10:00 AM LIFESTYLE DIRECTOR Appointment Department of Radiology, [facility], in [place], [place] [address] [place] [phone] Renee Lassiter M.D. [address] [place] [phone] Discharge Disposition: Home or Self Care 03/15/2025 10:30 AM LIFESTYLE DIRECTOR Office Visit Department of Orthopedic Surgery in [place], [place] [address] [place] [phone] Alexys Mensah M.B.B.S. [address] [place] [phone] 03/15/2025 11:00 AM LIFESTYLE DIRECTOR Clinical Support Department of Physical Medicine and Rehabilitation in [place], [place] [address] [place] [phone] Alexys Mensah M.B.B.S. [address] [place] [phone] Cecilia Ashford P.T., C.H.T. [address] [place] [address] 03/15/2025 1:00 PM LIFESTYLE DIRECTOR Office Visit Section of Preventive, Transportation and Occupational Medicine in [place], [place] [address] [place] [address] Ashli Kincaid APRN, C.N.P., M.S.N. [address] [place] [phone] documented as of this encounter Visit Diagnoses Not on filedocumented in this encounter Additional Health Concerns Assessment Noted Time PHQ-9 Depression Total Score: 11 10/23/ 025 6:47 AM CDT documented as of this encounter Care Teams Jewel Stripper Relationship Specialty Start Date End Date Silvia Robison M.D. [address] [place] [phone] PCP - General Family Medicine 10/03/23 documented as of this encounter
--- OUTSIDE RECORDS SUMMARY | 2025-02-15 14:23 | XMS_ITS | Encounter Summary ---
Author Organization [facility] Address [address] [place] [phone] Care Team Providers Care Tool Hardener Name Role Phone Silvia Robison M.D. Primary Care Provider Encounter Details Date Type Department Care Team (Late st Contact Info) Description 01/08/2025 Orders Only Department of Orthopedic Surgery in [place], [place] [address] [place] [address] Saba Rogers P.A.-C. [address] [place] [address] Social History Tobacco Use Types Packs/Day Years [...] things needed for daily living? No 12/24/2024 [facility] Utilities Answer Date Recorded In the past 12 months has [employer], gas, oil, or water [employer] threatened to shut off services in your [...] CDT Gender Identity Male 05/21/2020 12:19 PM ASSOCIATE FACULTY Sexual Orientation Straight 07/10/2017 5: 27 PM CDT documented as of this encounter Plan of Treatment Upcoming Encounters Date Type Department Care Team (Latest Contact Info) Description 02/16/2025 1:00 PM CDT Clinical Support Department of Physical Medicine and Rehabilitation in [place], [place] [address] [place] [address] Alexys Mensah M.B.B.S. [address] [place] [phone] Cher Kemp C.HLavonne., O.T. [address] [place] [phone] 02/16/2025 3:00 PM CDT Clinical Support Department of Physical Medicine and Rehabilitation in [place], [place] [address] [place] [phone] Ashli Kincaid APRN, C.N.P., M.S.N. [address] [place] [phone] Imtiaz Barker, M.S., P.T., D.P.T. [address] [place] [phone] 02/18/2025 9:00 AM CDT Clinical Support Department of Physical Medicine and Rehabilitation in [place], [place] [address] [place] [phone] Alexys Mensah M.B.B.S. [address] [place] [phone] Cher Kemp C.HLavonne., O.T. [address] [place] [phone] 02/22/2025 11:00 AM ASSOCIATE FACULTY Clinical Support Department of Physical Medicine and Rehabilitation in [place], [place] [address] [place] [phone] Ashli Kincaid APRN, C.N.P., M.S.N. [address] [place] [phone] BarkerImtiaz holguin M.S., P.T., D.P.T. [address] [place] [phone] 03/02/2025 3:00 PM ASSOCIATE FACULTY Clinical Support Department of Physical Medicine and Rehabilitation in [place], [place] [address] [facility] [place] [phone] Ashli Kincaid APRN, C.NSammP., M.S.N. [address] [place] [phone] Imtiaz Barker M.S., P.T., D.P.T. [address] [place] [phone] 03/15/2025 10:00 AM ASSOCIATE FACULTY Appointment Department of Radiology, [facility], in [place], [place] [address] [place] [phone] Renee Lassiter M.D. [address] [place] [phone] Discharge Disposition: Home or Self Care 03/15/2025 10:30 AM ASSOCIATE FACULTY Office Visit Department of Orthopedic Surgery in [place], [place] [address] [place] [phone] Alexys Mensah M.B.B.S. [address] [place] [phone] 03/15/2025 11:00 AM ASSOCIATE FACULTY Clinical Support Department of Physical Medicine and Rehabilitation in [place], [place] [address] [place] [phone] Alexys Mensah M.B.B.S. [address] [place] [phone] Cecilia Ashford P.T., C.H.T. [address] [place] [phone] 03/15/2025 1:00 PM ASSOCIATE FACULTY Office Visit Section of Preventive, Transportation and Occupational Medicine in [place], [place] [address] [place] [address] Ashli Kincaid APRN, C.N.P., M.S.N. [address] [place] [phone] documented as of this encounter Visit Diagnoses Not on filedocumented in this encounter Additional Health Concerns Assessment Noted Time PHQ-9 Depression Total Score: 11 10/23/ 025 6:47 AM CDT documented as of this encounter Care Teams Tool Hardener Relationship Specialty Start Date End Date Silvia Robison M.D. [address] [place] [phone] PCP - General Family Medicine 10/03/23 documented as of this encounter
--- OUTSIDE RECORDS SUMMARY | 2025-02-15 14:23 | XMS_ITS | Encounter Summary ---
Author Organization [facility] Address [address] [place] [address] Care Team Providers Care Inseam Trimming Machine Operator Name Role Phone Silvia Robison M.D. Primary Care Provider Encounter Details Date Type Department Care Team (Late st Contact Info) Description 01/07/2025 Clinical Communication Department of Family Medicine, [facility], in [place], [place] [address] [place] [phone] Silvia Robison M.D. [address] [place] [phone] Social History Tobacco Use Types Packs/Day [...] things needed for daily living? No 12/24/2024 [facility] Utilities Answer Date Recorded In the past 12 months has [employer], gas, oil, or water [employer] threatened to shut off services in your [...] CDT Gender Identity Male 05/21/2020 12:19 PM PLATE CORRECTOR Sexual Orientation Straight 07/10/2017 5: 27 PM CDT documented as of this encounter Plan of Treatment Upcoming Encounters Date Type Department Care Team (Latest Contact Info) Description 02/16/2025 1:00 PM CDT Clinical Support Department of Physical Medicine and Rehabilitation in [place], [place] [address] [place] [address] Alexys Mensah M.B.B.S. [address] [place] [phone] Cher Kemp C.H.Thad., O.T. [address] [place] [phone] 02/16/2025 3:00 PM CDT Clinical Support Department of Physical Medicine and Rehabilitation in [place], [place] [address] [place] [phone] Ashli Kincaid APRN, C.NHeather, M.S.N. [address] [place] [phone] Imtiaz Barker M.S., P.T., D.P.T. [address] [place] [phone] 02/18/2025 9:00 AM CDT Clinical Support Department of Physical Medicine and Rehabilitation in [place], [place] [address] [place] [address] Alexys Mensah M.B.B.S. [address] [place] [phone] Cher Kemp C.H.Thad., O.T. [address] [place] [phone] 02/22/2025 11:00 AM [facility] Clinical Support Department of Physical Medicine and Rehabilitation in [place], [place] [address] [place] [phone] Ashli Kincaid APRN, C.NHeather, M.S.N. [address] [place] [phone] Imtiaz Barker M.S., P.T., D.P.T. [address] [place] [phone] 03/02/2025 3:00 PM PLATE CORRECTOR Clinical Support Department of Physical Medicine and Rehabilitation in [place], [place] [address] [place], [place] [phone] Ashli Kincaid APRN, C.N.P., M.S.N. [address] [place] [phone] Imtiaz Barker M.S., P.T., D.P.T. [address] [place] [phone] 03/15/2025 10:00 AM PLATE CORRECTOR Appointment Department of Radiology, [facility], in [place], [place] [address] [place] [phone] Renee Lassiter M.D. [address] [place] [phone] Discharge Disposition: Home or Self Care 03/15/2025 10:30 AM PLATE CORRECTOR Office Visit Department of Orthopedic Surgery in [place], [place] [address] [place] [phone] Alexys Mensah M.B.B.S. [address] [place] [phone] 03/15/2025 11:00 AM PLATE CORRECTOR Clinical Support Department of Physical Medicine and Rehabilitation in [place], [place] [address] [place] [phone] Alexys Mensah M.B.B.S. [address] [place] [phone] Cecilia Ashford P.T., C.H.T. [address] [place] [phone] 03/15/2025 1:00 PM PLATE CORRECTOR Office Visit Section of Preventive, Transportation and Occupational Medicine in [place], [place] [address] [place] [address] Ashli Kincaid APRN, C.N.P., M.S.N. [address] [place] [address] documented as of this encounter Visit Diagnoses Diagnosis Diabetes Mellitus Type 2 Without Complication (HCC)- Primary documented in this encounter Additional Health Concerns Assessment Noted Time PHQ-9 Depression Total Score: 11 10/23/ 025 6:47 AM CDT documented as of this encounter Care Teams Inseam Trimming Machine Operator Relationship Specialty Start Date End Date Silvia Robison M.D. [address] [phone] PCP - General Family Medicine 10/03/23 documented as of this encounter
--- OUTSIDE RECORDS SUMMARY | 2025-02-15 14:23 | XMS_ITS | Encounter Summary ---
Author Organization [facility] Address [address] [place] [address] Care Team Providers Care Supervisor [employer] Name Role Phone Silvia Robison M.D. Primary Care Provider Encounter Details Date Type Department Care Team (Late st Contact Info) Description 01/07/2025 Clinical Communication Division of Plastic Surgery in [place], [place] [address] [place] [address] Ailin Rowan M.D. [address] [place] [address] Social History Tobacco Use Types Packs/Day Years [...] In the past 12 months has e [employer], gas, oil, or water [employer] threatened to shut off services in your home? Patient declined 12/24/2024 Depression Answer Date Recor ded PHQ-9 Total Score (max 27) 11 10/23 Housing Stability Answer Date Recorded What is your living situatio n today? I do not have a steady place to live (I am temporarily staying with others, in a hotel, in a mcc, living outside on the street, on a [...] CDT Gender Identity Male 05/21/2020 12:19 PM ENVIRONMENTAL EDUCATOR Sexual Orientation Straight 07/10/2017 5: 27 PM [...] Department of Physical Medicine and Rehabilitation in [place], [place] [address] [place] [phone] Alexys Mensah M.B.B.S. [address] [place] [phone] Cher Kemp, C.H.T., O.T. [address] [place] [phone] 02/16/2025 3:00 PM CDT Clinical Support Department of Physical Medicine and Rehabilitation in [address] [place] [address] Ashli Kincaid APRN, C.N.P., M.S.N. [address] [place] [phone] Imtiaz Barker M.S., P.T., D.P.T. [address] [place] [phone] 02/18/2025 9:00 AM CDT Clinical Support Department of Physical Medicine and Rehabilitation in [place], [place] [address] [place] [address] Alexys Mensah M.B.B.S. [address] [place] [phone] Cher Kemp C.HLavonne., O.T. [address] [place] [phone] 02/22/2025 11:00 AM ENVIRONMENTAL EDUCATOR Clinical Support Department of Physical Medicine and Rehabilitation in [place], [place] [address] [place], [place] [phone] Ashli Kincaid APRN, C.NMago., M.S.N. [address] [place] [phone] Imtiaz Barker M.S., P.T., D.P.T. [address] [place] [phone] 03/02/2025 3:00 PM ENVIRONMENTAL EDUCATOR Clinical Support Department of Physical Medicine and Rehabilitation in [place], [place] [address] [place], [place] [phone] Ashli Kincaid APRN, C.NMago., M.S.N. [address] [place] [phone] Imtiaz Barker M.S., P.T., D.P.T. [address] [place] [address] [phone] 03/15/2025 10:00 AM ENVIRONMENTAL EDUCATOR Appointment Department of Radiology, [facility], in [place], [place] [address] [place] [phone] Renee Lassiter M.D. [address] [place] [phone] Discharge Disposition: Home or Self Care 03/15/2025 10:30 AM ENVIRONMENTAL EDUCATOR Office Visit Department of Orthopedic Surgery in [place], [place] [address] [place] [phone] Alexys Mensah M.B.B.S. [address] [place] [phone] 03/15/2025 11:00 AM ENVIRONMENTAL EDUCATOR Clinical Support Department of Physical Medicine and Rehabilitation in [place], [place] [address] [place] [phone] Alexys Mensah M.B.B.S. [address] [place] [phone] Cecilia Ashford PLavonne., C.H.T. [address] [place] [phone] 03/15/2025 1:00 PM ENVIRONMENTAL EDUCATOR Office Visit Section of Preventive, Transportation and Occupational Medicine in [place], [place] [address] [place] [phone] Ashli Kincaid APRN, C.N.P., M.S.N. [address] [place] [phone] documented as of this encounter Visit Diagnoses Not on filedocumented in this encounter Additional Health Concerns Assessment Noted Time PHQ-9 Depression Total Score: 11 10/23/ 025 6:47 AM CDT documented as of this encounter Care Teams Supervisor [employer] Relationship Specialty Start Date End Date Silvia Robison M.D. [address], [place] [phone] PCP - General Family Medicine 10/03/23 documented as of this encounter
== END 2025-02-15 14:20 | disposition left against medical advice (07) ==
PROVIDERS: PCP Student in an Organized Health Care Education/Training Program
DX: Z53.21 Procedure and treatment not carried out due to patient leaving prior to being seen by health care provider (principal)